=== PATIENT | female | born 1930 | race Caucasian/White ===

== ENCOUNTER 2017-01-28 18:21 | Observation (INO) | payer MEDICARE, MEDICAID ==
[2017-01-28 19:24] LABS: BASO # 0.1 K/uL (0.0-0.2); BASO % 0.7 % (0.0-2.0); EOS # 0.2 K/uL (0.0-0.7); EOS % 1.8 % (0.0-4.0); HEMATOCRIT 31.3 % (34.0-47.0); LYMPH # 2.6 K/uL (1.0-4.3); LYMPH % 30.4 % (20.0-40.0); MEAN CELL VOLUME 87.9 fl (81.0-99.0); MEAN CORPUSCULAR HEMOGLOBIN 27.7 pg (27.0-31.0); MEAN CORPUSCULAR HGB CONC 31.6 g/dL (33.0-37.0); MONO # 0.8 K/uL (0.0-0.8); MONO % 9.5 % (0.0-10.0); NEUT % 57.6 % (50.0-75.0); RED CELL DISTRIBUTION WIDTH 16.2 % (11.5-14.5); WHITE BLOOD COUNT 8.7 K/uL (4.8-10.8)
--- NOTE | 2017-01-28 19:26 | ED PDOC ---
HPI: General Adult Time Seen by Provider: 01/28/17 18:45 Chief Complaint (Nursing): High Blood Pressure Chief Complaint (Provider): Generalized Weakness History Per: Patient, Family (son) History/Exam Limitations: no limitations Onset/Duration Of Symptoms: Days (today), Worse Since (since onset) Have you had recent travel within the past 21 days to any of the following countries: [place], [place], [place] or [place]?: No Current Symptoms Are (Timing): Still Present Severity: Moderate Additional Complaint(s): Katie Cook is an 86 year old female, with a past medical history inclusive of CAD, CHF, atrial fibrillation, HTN, hypercholesterolemia, COPD and hypothyroidism, who presents to the ED on 01/28/17, accompanied by her son, for the evaluation of a moderate amount of generalized weakness that she has experienced over the course of the day today. Feelings have progressively worsened since onset, with son reporting that patient had seemed to be slurring her speech approximately 1 hour prior to arrival, though patient reports that she had simply been very tired at that time. Associated exertional dyspnea also reported in addition to a noted elevation in both blood pressure and blood glucose at home. Denies fever, chills, focal weakness or headache as well as cough, rhinorrhea, vomiting or diarrhea. Of note, patient does report some intermittent chest pain but states that she has experienced this issue for many years. However pt does report the tightness also worse today. Most recent Cardiology evaluation was as of yesterday where blood pressure had also been elevated, resulting in a change to her medication regimen. PMD: Dayne Duran ([place]) Past Medical History Reviewed: Historical Data, Nursing Documentation, Vital Signs Vital Signs: Last Vital Signs Temp 97.6 F 01/29/17 13:23 Pulse 61 01/29/17 13:23 Resp 20 01/29/17 13:23 BP 145/75 01/29/17 13:23 Pulse Ox 97 01/29/17 14:18 - Medical History PMH: Arthritis, Asthma, Atrial Fibrillation, Bronchitis, CAD, CHF, Diabetes ( type II), HTN, Hypercholesterolemia, Hyperthyroidism, Hypothyroidism, Pneumonia , Sleep Apnea Denies: HIV, Chronic Kidney Disease - Surgical History Surgical History: Denies: CABG Other surgeries: hysterectomy - Family History Family History: States: Hypertension - Immunization History Hx Tetanus Toxoid Vaccination: No Hx Influenza Vaccination: No Hx Pneumococcal Vaccination: No - Home Medications Home Medications: Ambulatory Orders Medication Instructions Recorded Atorvastatin Calcium [Lipitor] 10 mg PO DAILY 08/24/15 Omeprazole 20 mg PO DAILY 06/22/16 Fluticasone/Salmeterol 250/50 1 puff IH Q12H 11/13/16 [Advair Diskus 250/50] Levothyroxine [Synthroid] 175 mcg PO DAILY 11/13/16 Losartan [Cozaar] 50 mg PO DAILY 11/13/16 Albuterol 0.083% [Albuterol 0.083% 2.5 mg IH Q4H PRN #100 neb 11/15/16 Inhal [place] (2.5 mg/3 ml) UD] Furosemide [Lasix] 20 mg PO DAILY #30 tablet 11/15/16 Amiodarone [Cordarone] 100 mg PO DAILY 01/28/17 Sitagliptin Phos/Metformin HCl 1 tab PO HS 01/28/17 [Janumet Xr 100-1,000 mg Tablet] - Allergies Allergies/Adverse Reactions: Allergies Allergy/AdvReac Type Severity Reaction Status Date / Time No Known Allergies Allergy Verified 11/13/16 11:37 Review of Systems ROS Statement: Except As Marked, All Systems Reviewed And Found Negative Constitutional: Positive for: Weakness (generalized). Negative for: Fever, Chills ENT: Negative for: Nose Discharge Cardiovascular: Positive for: Chest Pain (intermittent x many years) Respiratory: Positive for: SOB with Exertion. Negative for: Cough Gastrointestinal: Negative for: Vomiting, Diarrhea Neurological: Negative for: Weakness, Numbness, Headache, Dizziness Physical Exam - Reviewed Nursing Documentation Reviewed: Yes Vital Signs Reviewed: Yes - Physical Exam Appears: Positive for: Non-toxic, No Acute Distress Head Exam: Positive for: ATRAUMATIC, NORMOCEPHALIC Skin: Positive for: Warm, Dry, Pallor Eye Exam: Positive for: Normal appearance, EOMI, PERRL ENT: Positive for: Normal ENT Inspection. Negative for: Pharyngeal Erythema, Tonsillar Exudate, Tonsillar Swelling Cardiovascular/Chest: Positive for: Regular Rate, Rhythm. Negative for: Murmur Respiratory: Positive for: Normal Breath Sounds. Negative for: Respiratory Distress Gastrointestinal/Abdominal: Positive for: Normal Exam, Soft. Negative for: Tenderness Back: Positive for: Normal Inspection Extremity: Positive for: Normal ROM (though she is having difficulty with left leg secondary to reported chronic knee arthritis (currently worse on left than right)) Neurologic/Psych: Positive for: Alert, Oriented (x3). Negative for: Motor/ Sensory Deficits, Aphasia, Other (no slurred speech) - Laboratory Results Result Diagrams: 01/29/17 05:45 01/29/17 05:45 - ECG O2 Sat by Pulse Oximetry: 97 (RA) Pulse Ox Interpretation: Normal Medical Decision Making Medical Decision Makin:45 Initial Impression: generalized weakness Differential diagnoses include but are not limited to electrolyte abnormality, dehydration, hypertensive encephalopathy, hypothyroidism, anemia, CHF, ACS Initial Plan: * EKG * CT Head w/o contrast * CXR * Blood Type/Screen * Labs * BNP * Magnesium * Phosphorus * TSH * Troponin I * PTT * PT * Glucose/Blood/POC * Udip * Reevaluation Accucheck is 194. CXR demonstrates increase perihilar thickening, no effusion On reeval pt's BP increased again. Concern for early CHF exacerbation. [facility] for PMD and Dr Boyd [facility]. Pt will hospitalized for chest pain, uncontrolled htn, and early CHF exacerbation Scribe Attestation: Documented by Yudith Liriano, acting as a scribe for Joie Velez MD. Provider Scribe Attestation: All medical record entries made by the Scribe were at my direction and personally dictated by me. I have reviewed the chart and agree that the record accurately reflects my personal performance of the history, physical exam, medical decision making, and the department course for this patient. I have also personally directed, reviewed, and agree with the discharge instructions and disposition. Disposition - Clinical Impression Clinical Impression: Hypertension, CHF (congestive heart failure), Chest pain Counseled Patient/Family Regarding: Studies Performed, Diagnosis - Disposition Disposition Time: 21:00 Condition: SERIOUS - Pt Status Changed To: Hospital Disposition Of: Observation - POA Present On Arrival: None
[2017-01-28 19:38] LABS: ALB/GLOB RATIO 1.2 (1.0-2.1); ALKALINE PHOSPHATASE 92 U/L (38-126); ALT/SGPT 34 U/L (9-52); AST/SGOT 51 U/L (14-36); BILIRUBIN,TOTAL 0.3 mg/dl (0.2-1.3); BLOOD UREA NITROGEN 17 mg/dl (7-17); CALCIUM 8.8 mg/dL (8.4-10.2); CARBON DIOXIDE 24 mmol/L (22-30); CHLORIDE 105 mmol/L (98-107); GFR AFRICAN-AMERICAN > 60; GLUCOSE,RANDOM 167 mg/dL (65-105); MAGNESIUM 1.7 MG/DL (1.6-2.3); PHOSPHOROUS 3.9 mg/dl (2.5-4.5); POTASSIUM 3.9 MMOL/L (3.6-5.0); SODIUM 137 mmol/l (132-148); TOTAL PROTEIN 6.8 G/DL (6.3-8.2)
--- NOTE | 2017-01-28 20:07 | CT ---
EXAM: CT Head Without Intravenous Contrast. CLINICAL HISTORY: 86 years old, female; Signs and symptoms; Weakness, extremity; Bilateral TECHNIQUE: Axial computed tomography images of the head/brain without intravenous contrast. This CT exam was performed using one or more of the following dose reduction techniques: automated exposure control, adjustment of the mA and/or kV according to patient size, and/or use of iterative reconstruction technique. Coronal and sagittal reformatted images were created and reviewed. EXAM DATE/TIME: 01/28/2017 6:56 PM COMPARISON: There are no prior studies for comparison. FINDINGS: Brain: There is mild prominence of sulci gyri and ventricles. There is no midline shift. There are basal ganglia calcifications bilaterally. There is decreased attenuation in periventricular white matter. There are no focal masses. There are no focal hemorrhages. Rose-white differentiation is visualized. Ventricles: See above. Bones: Cranial vault is intact. Soft tissues: unremarkable Sinuses: There is no acute sinusitis. Ears and mastoids: Middle ears and mastoids are unremarkable. Orbits: Orbital contents are unremarkable. IMPRESSION: No acute intracranial abnormality, no bleed
[2017-01-28 20:08] LABS: THYROID STIMULATING HORMONE 5.16 mIU/ML (0.46-4.68)
[2017-01-28 20:42] LABS: PARTIAL THROMBOPLASTIN TIME 25.9 SECONDS (23.3-32.5)
[2017-01-28] MEDS ORDERED: Nitroglycerin 2% 1GM UD TOP STA (20:43)
[2017-01-28] MEDS ORDERED: Nitroglycerin 2% 1GM UD ONE (20:58)
[2017-01-28 21:36] LABS: URINE BILIRUBIN NEGATIVE (NEGATIVE); URINE BLOOD NEGATIVE (NEGATIVE); URINE COLOR YELLOW (YELLOW); URINE GLUCOSE (UA) NEG (Normal); URINE KETONE NEGATIVE (NEGATIVE); URINE LEUKOCYTE ESTERASE TRACE Leu/uL (Negative); URINE PROTEIN NEGATIVE (NEGATIVE); URINE UROBILINOGEN 0.2-1.0 mg/dL (0.2-1.0); WBC URINE 3 /hpf (0-5)
[2017-01-28 21:58] VITALS: BMI 37.8
[2017-01-28] MEDS: Nitroglycerin 2% 1GM UD TOP SCH (22:00)
[2017-01-28] MEDS ORDERED: Albuterol 0.083% Inhal Sol (2.5 mg/3 mL) UD IH PRN (23:00)
[2017-01-28] MEDS: Fluticasone-Salmeterol 250-50mcg Diskus IH SCH (23:28)
[2017-01-29] MEDS: Nitroglycerin 2% 1GM UD TOP SCH (04:25)
[2017-01-29] MEDS ORDERED: Levothyroxine 175 MCG TAB PO SCH (06:30)
[2017-01-29 07:05] LABS: BASO # 0.1 K/uL (0.0-0.2); BASO % 0.7 % (0.0-2.0); EOS # 0.2 K/uL (0.0-0.7); EOS % 1.7 % (0.0-4.0); HEMATOCRIT 32.2 % (34.0-47.0); LYMPH # 3.4 K/uL (1.0-4.3); LYMPH % 34.4 % (20.0-40.0); MEAN CELL VOLUME 87.6 fl (81.0-99.0); MEAN CORPUSCULAR HEMOGLOBIN 27.7 pg (27.0-31.0); MEAN CORPUSCULAR HGB CONC 31.6 g/dL (33.0-37.0); MEAN PLATELET VOLUME 9.9 fl (7.2-11.7); MONO # 0.8 K/uL (0.0-0.8); MONO % 8.5 % (0.0-10.0); NEUT # 5.4 K/uL (1.8-7.0); NEUT % 54.7 % (50.0-75.0); RED CELL DISTRIBUTION WIDTH 15.8 % (11.5-14.5); WHITE BLOOD COUNT 9.8 K/uL (4.8-10.8)
[2017-01-29 07:28] LABS: ALB/GLOB RATIO 1.2 (1.0-2.1); ALKALINE PHOSPHATASE 95 U/L (38-126); ALT/SGPT 33 U/L (9-52); AST/SGOT 38 U/L (14-36); BILIRUBIN,TOTAL 0.3 mg/dl (0.2-1.3); BLOOD UREA NITROGEN 16 mg/dl (7-17); CALCIUM 8.7 mg/dL (8.4-10.2); CARBON DIOXIDE 27 mmol/L (22-30); CHLORIDE 101 mmol/L (98-107); GFR AFRICAN-AMERICAN > 60; GLUCOSE,RANDOM 164 mg/dL (65-105); POTASSIUM 3.4 MMOL/L (3.6-5.0); SODIUM 137 mmol/l (132-148); TOTAL PROTEIN 6.8 G/DL (6.3-8.2)
--- NOTE | 2017-01-29 07:43 | CARD ---
APPROVED REPORT EKG Measurement Heart [id number] <Conclusion> Normal sinus rhythm Incomplete right bundle branch block Left ventricular hypertrophy with repolarization abnormality Abnormal ECG
[2017-01-29 08:01] VITALS: RESP 20
--- NOTE | 2017-01-29 08:17 | CP.PCM.HP ---
History of Present Illness - History of Present Illness History of Present Illness: pt admitted to [facility] [place] for cp, dyspnea and feeling off balance for a couple days. was shopping w/ a friend 3 days [employer] and had to leave the market go home and lay down. bp meds was adjusted 01/[address] valentin-corina and felt similar episode of disquillibrium and felt hte need to lay down. last visit to [facility] [place] was approx 2 wks ago. pt is concerned about caring for who is ill. no c/o cp at present. c/o headache-?? r/t ntp for elev bp and cp. will dc ntp and start pt back on normal bp meds [id number], humberto bocanegra both aware. All of pts bw and imaging noted. pt is on RA at present w/o dyspnea or cp Present on Admission - Present on Admission Any Indicators Present on Admission: Yes History of Uncontrolled Diabetes: Yes Review of Systems - Cardiovascular Cardiovascular: As Per HPI, Chest Pain, Chest Pain with Activity, Dyspnea on Exertion - Respiratory Respiratory: As Per HPI, Cough, Chest Congestion - Neurological Neurological: As Per HPI, Disequilibrium Past Patient History - Infectious Disease Hx of Infectious Diseases: None - Past Medical History & Family History Past Medical History?: Yes - Past Social History Smoking Status: Former Smoker - CARDIAC Hx Cardiac Disorders: Yes Hx Atrial Fibrillation: Yes Hx Congestive Heart Failure: Yes Hx Hypercholesterolemia: Yes Hx Hypertension: Yes - PULMONARY Hx Respiratory Disorders: Yes Hx Asthma: Yes Hx Bronchitis: Yes Hx Chronic Obstructive Pulmonary Disease (COPD): Yes Hx Pneumonia: Yes Hx Sleep Apnea: Yes - NEUROLOGICAL Hx Neurological Disorder: No - HEENT Hx HEENT Problems: No - RENAL Hx Chronic Kidney Disease: No - ENDOCRINE/METABOLIC Hx Endocrine Disorders: Yes Hx Diabetes Mellitus Type 2: Yes Hx Hypothyroidism: Yes - HEMATOLOGICAL/ONCOLOGICAL Hx Blood Disorders: No Hx AIDS: No Hx Human Immunodeficiency Virus (HIV): No - INTEGUMENTARY Hx Dermatological Problems: No - MUSCULOSKELETAL/RHEUMATOLOGICAL Hx Musculoskeletal Disorders: Yes Hx Arthritis: Yes Hx Falls: Yes - GASTROINTESTINAL Hx Gastrointestinal Disorders: No - GENITOURINARY/GYNECOLOGICAL Hx Genitourinary Disorders: No - PSYCHIATRIC Hx Psychophysiologic Disorder: No Hx Substance Use: No - SURGICAL HISTORY Hx Surgeries: Yes Hx Coronary Artery Bypass Graft: Yes Hx Hysterectomy: Yes - ANESTHESIA Hx Anesthesia: Yes Hx Anesthesia Reactions: No Hx Malignant Hyperthermia: No Meds Allergies/Adverse Reactions: Allergies Allergy/AdvReac Type Severity Reaction Status Date / Time No Known Allergies Allergy Verified 11/13/16 11:37 Physical Exam - Constitutional Appears: Well, Non-toxic, No Acute Distress - Head Exam Head Exam: ATRAUMATIC, NORMAL INSPECTION, NORMOCEPHALIC - Eye Exam Eye Exam: EOMI, Normal appearance, PERRL Pupil Exam: NORMAL ACCOMODATION, PERRL - ENT Exam ENT Exam: Mucous Membranes Moist, Normal Exam - Neck Exam Neck exam: Positive for: Normal Inspection - Respiratory Exam Respiratory Exam: Clear to Auscultation Bilateral, NORMAL BREATHING PATTERN - Cardiovascular Exam Cardiovascular Exam: REGULAR RHYTHM, RRR, +S1, +S2 - GI/Abdominal Exam GI & Abdominal Exam: Normal Bowel Sounds, Soft. absent: Tenderness - Extremities Exam Extremities exam: Positive for: full ROM, normal capillary refill, normal inspection, pedal pulses present - Back Exam Back exam: NORMAL INSPECTION - Neurological Exam Neurological exam: Alert, CN II-XII Intact, Normal Gait, Oriented x3, Reflexes Normal - Psychiatric Exam Psychiatric exam: Normal Affect, Normal Mood - Skin Skin Exam: Dry, Intact, Normal Color, Warm Results - Vital Signs Recent Vital Signs: Last Vital Signs Temp 98.1 F 01/29/17 08:00 Pulse 62 01/29/17 08:00 Resp 20 01/29/17 08:00 BP 151/68 H 01/29/17 08:00 Pulse Ox 96 01/29/17 08:00 - Labs Result Diagrams: 01/29/17 05:45 01/29/17 05:45 Labs: Laboratory Results - last 24 hr 01/28/17 01/29/17 01/29/17 22:10 05:08 05:45 WBC 9.8 RBC 3.68 L Hgb 10.2 L Hct 32.2 L MCV 87.6 MCH 27.7 MCHC 31.6 L RDW 15.8 H Plt Count 167 MPV 9.9 Neut % (Auto) 54.7 Lymph % (Auto) 34.4 [place] % (Auto) 8.5 Eos % (Auto) 1.7 Baso % (Auto) 0.7 Neut # 5.4 Lymph # 3.4 [place] # 0.8 Eos # 0.2 Baso # 0.1 Sodium 137 Potassium 3.4 L Chloride 101 Carbon Dioxide 27 Anion Gap 12 BUN 16 Creatinine 0.7 Est GFR ( Amer) > 60 Est GFR (Non-Af Amer) > 60 POC Glucose (mg/dL) 193 H 137 H Random Glucose 164 H Calcium 8.7 Total Bilirubin 0.3 AST 38 H D ALT 33 Alkaline Phosphatase 95 Troponin I < 0.0120 Total Protein 6.8 Albumin 3.7 Globulin 3.1 Albumin/Globulin Ratio 1.2 Assessment & Plan (1) CHF (congestive heart failure) Assessment and Plan: cardio, cont meds trops diuresis Status: Acute (2) Chest pain Assessment and Plan: trops x 3-1st/2nd negative cardio no cp at present ntp Status: Acute (3) Dyspnea Assessment and Plan: none at present ?? r/t copd vs chf pulm diuresis Status: Acute Priority: High (4) DVT prophylaxis Assessment and Plan: scd and ae hose lovenox if admitted over 24h ambulation Status: Acute (5) Diabetes mellitus, type II Assessment and Plan: cont home meds fsbg dietary control Status: Chronic (6) Hypothyroidism Assessment and Plan: tsh slightly abn cont synthroid outpt f/u ?? need for outpt endo Status: Chronic (7) COPD (chronic obstructive pulmonary disease) Status: Acute Decision To Admit - Pt Status Changed To: Hospital Disposition Of: Observation - . Bed Request Type: Telemetry Admitting Physician: Viri Mi
[2017-01-29] MEDS ORDERED: Pantoprazole 40 mg EC Tab PO SCH (09:00)
--- NOTE | 2017-01-29 10:40 | CP.PCM.CON ---
History of Present Illness - History of Present Illness History of Present Illness: This 86 year old female presented to the emergency room with a complaint of dizziness, chest discomfort (tightness) and mild shortness of breath. No cough or sputum, no fever or chills, no hemoptysis. She had been feeling lightheaded for the last 2-3 days [employer]. She has been having elevated blood pressure despite her medications recently. She has multiple co-morbidities including BAR, Asthma , HTN, Paroxysmal atrial fib, Hyperlipidemia, Diabetes, DJD of the knees as well as Lumbar DDD. She is compliant with her medications and use of her nCPAP at home. CXR on presentation shows increased BV markings, cardiomegaly, but no areas of consolidation. Past Patient History - Infectious Disease Hx of Infectious Diseases: None - Past Medical History & Family History Past Medical History?: Yes Pertinent Family History: Thyroid disease, diabetes, asthma, cholesterol. - Past Social History Smoking Status: Former Smoker (in the remote past, less than 100 cigarettes in lifetime) Chewing Tobacco Use: No Cigar Use: No Alcohol: None Drugs: Denies Home Situation {Lives}: With Family - CARDIAC Hx Cardiac Disorders: Yes Hx Atrial Fibrillation: Yes Hx Congestive Heart Failure: Yes Hx Hypercholesterolemia: Yes Hx Hypertension: Yes - PULMONARY Hx Respiratory Disorders: Yes Hx Asthma: Yes Hx Bronchitis: Yes Hx Pneumonia: Yes Hx Sleep Apnea: Yes - NEUROLOGICAL Hx Neurological Disorder: No - HEENT Hx HEENT Problems: No - RENAL Hx Chronic Kidney Disease: No - ENDOCRINE/METABOLIC Hx Endocrine Disorders: Yes Hx Diabetes Mellitus Type 2: Yes Hx Hypothyroidism: Yes - HEMATOLOGICAL/ONCOLOGICAL Hx Blood Disorders: No Hx Human Immunodeficiency Virus (HIV): No - INTEGUMENTARY Hx Dermatological Problems: No - MUSCULOSKELETAL/RHEUMATOLOGICAL Hx Musculoskeletal Disorders: Yes Hx Arthritis: Yes Hx Falls: Yes - GASTROINTESTINAL Hx Gastrointestinal Disorders: No - GENITOURINARY/GYNECOLOGICAL Hx Genitourinary Disorders: No - PSYCHIATRIC Hx Psychophysiologic Disorder: No Hx Substance Use: No - SURGICAL HISTORY Hx Surgeries: Yes Hx Hysterectomy: Yes Hx Orthopedic Surgery: Yes (lumbar laminectomy) - ANESTHESIA Hx Anesthesia: Yes Hx Anesthesia Reactions: No Hx Malignant Hyperthermia: No Meds Allergies/Adverse Reactions: Allergies Allergy/AdvReac Type Severity Reaction Status Date / Time No Known Allergies Allergy Verified 11/13/16 11:37 - Medications Medications: Current Medications Acetaminophen (Tylenol 325mg Tab) 650 mg PO Q4 PRN PRN Reason: Headache Albuterol Sulfate (Albuterol 0.083% Inhal [place] (2.5 Mg/3 Ml) Ud) 2.5 mg IH Q4H PRN PRN Reason: dyspnea Last Admin: 01/29/17 04:45 Dose: 2.5 mg Amiodarone HCl (Cordarone) 100 mg PO DAILY [facility] Last Admin: 01/29/17 08:42 Dose: 100 mg Atorvastatin Calcium (Lipitor) 10 mg PO DAILY [facility] Last Admin: 01/29/17 08:44 Dose: 10 mg Furosemide (Lasix) 20 mg PO DAILY [facility] Last Admin: 01/29/17 08:43 Dose: 20 mg Levothyroxine Sodium (Synthroid) 175 mcg PO DAILY@0630 [facility] Last Admin: 01/29/17 08:45 Dose: 175 mcg Losartan Potassium (Cozaar) 50 mg PO DAILY [facility] Last Admin: 01/29/17 08:42 Dose: 50 mg Metformin HCl (Glucophage) 500 mg PO BIDWM [facility] Last Admin: 01/29/17 08:43 Dose: 500 mg Pantoprazole Sodium (Protonix Ec Tab) 40 mg PO DAILY [facility] Last Admin: 01/29/17 08:44 Dose: 40 mg Fluticasone/Salmeterol (Advair Diskus 250/50) 1 puff IH Q12H [facility] Last Admin: 01/28/17 23:28 Dose: Not Given Sitagliptin Phosphate (Januvia) 100 mg PO DAILY [facility] Physical Exam - Additional Findings Additional findings: SpO2 95% on room air. Elderly overweight female who is slightly lightheaded at this time. Trace ankle edema is noted in bilaterally. There is no cyanosis or calf tenderness. Peripheral pulses are difficult to appreciate in either ankle or foot. There is no palpable lymphadenopathy. The pharynx is pink and mucous membranes are moist. Nasal passages are patent bilaterally. No bleeding or exudate. Conjunctivae are mildly injected bilaterally. No scleral icterus. EACs are patent and TMs are intact bilaterally. Neck is supple and trachea is midline. No neck vein distention or carotid bruit is noted. Left carotid upstroke is decreased compared to the right. No dullness on chest percussion. Breath sounds are well heard bilaterally. No rales or wheezes. No rhonchi. Heart sounds are well heard and the rhythm is regular. No murmur. Results - Vital Signs Recent Vital Signs: Last Vital Signs Temp 98.1 F 01/29/17 08:00 Pulse 62 01/29/17 08:42 Resp 20 01/29/17 08:00 BP 151/68 H 01/29/17 08:43 Pulse Ox 96 01/29/17 08:00 - Labs Result Diagrams: 01/29/17 05:45 01/29/17 05:45 Labs: Laboratory Results - last 24 hr 01/28/17 01/29/17 01/29/17 22:10 05:08 05:45 WBC 9.8 RBC 3.68 L Hgb 10.2 L Hct 32.2 L MCV 87.6 MCH 27.7 MCHC 31.6 L RDW 15.8 H Plt Count 167 MPV 9.9 Neut % (Auto) 54.7 Lymph % (Auto) 34.4 [place] % (Auto) 8.5 Eos % (Auto) 1.7 Baso % (Auto) 0.7 Neut # 5.4 Lymph # 3.4 [place] # 0.8 Eos # 0.2 Baso # 0.1 Sodium 137 Potassium 3.4 L Chloride 101 Carbon Dioxide 27 Anion Gap 12 BUN 16 Creatinine 0.7 Est GFR ( Amer) > 60 Est GFR (Non-Af Amer) > 60 POC Glucose (mg/dL) 193 H 137 H Random Glucose 164 H Calcium 8.7 Total Bilirubin 0.3 AST 38 H D ALT 33 Alkaline Phosphatase 95 Troponin I < 0.0120 Total Protein 6.8 Albumin 3.7 Globulin 3.1 Albumin/Globulin Ratio 1.2 Assessment & Plan - Assessment and Plan (Free Text) Assessment: Accelerated hypertension. Labyrinthine dysfunction. Obstructive sleep apnea with nasal CPAP at home. Bronchial Asthma. Degenerative joint disease both knees.. Hypothyroidism.. NIDDM. Plan: Follow up CXR after diuresis. Continue present medications. No changes in respiratory management at this time. - Date & Time Date: 01/29/17 Time: 10:42
--- NOTE | 2017-01-29 11:45 | IP.NPCORE ---
Heart Failure Core Measure - Heart Failure Ejection Fraction: 40 % or Greater Left Ventricular Function to be assessed after discharge: No LENNY Inhibitor Prescribed: Yes - Follow up Will be discharged to: Home
--- NOTE | 2017-01-29 11:57 | CP.PCM.CON ---
History of Present Illness - History of Present Illness History of Present Illness: 86 yo female with hypertension, atrial fibrillation, COPD, nonspecific symptoms and presentation. Pt hemodynamically stable. R/o for MT. Bp acceptable. Pt comfortable at rest. Past Patient History - Infectious Disease Hx of Infectious Diseases: None - Past Medical History & Family History Past Medical History?: Yes - Past Social History Smoking Status: Former Smoker (in the remote past, less than 100 cigarettes in lifetime) Chewing Tobacco Use: No Cigar Use: No Alcohol: None Drugs: Denies Home Situation {Lives}: With Family - CARDIAC Hx Cardiac Disorders: Yes Hx Atrial Fibrillation: Yes Hx Congestive Heart Failure: Yes Hx Hypercholesterolemia: Yes Hx Hypertension: Yes - PULMONARY Hx Respiratory Disorders: Yes Hx Asthma: Yes Hx Bronchitis: Yes Hx Pneumonia: Yes Hx Sleep Apnea: Yes - NEUROLOGICAL Hx Neurological Disorder: No - HEENT Hx HEENT Problems: No - RENAL Hx Chronic Kidney Disease: No - ENDOCRINE/METABOLIC Hx Endocrine Disorders: Yes Hx Diabetes Mellitus Type 2: Yes Hx Hypothyroidism: Yes - HEMATOLOGICAL/ONCOLOGICAL Hx Blood Disorders: No Hx Human Immunodeficiency Virus (HIV): No - INTEGUMENTARY Hx Dermatological Problems: No - MUSCULOSKELETAL/RHEUMATOLOGICAL Hx Musculoskeletal Disorders: Yes Hx Arthritis: Yes Hx Falls: Yes - GASTROINTESTINAL Hx Gastrointestinal Disorders: No - GENITOURINARY/GYNECOLOGICAL Hx Genitourinary Disorders: No - PSYCHIATRIC Hx Psychophysiologic Disorder: No Hx Substance Use: No - SURGICAL HISTORY Hx Surgeries: Yes Hx Hysterectomy: Yes Hx Orthopedic Surgery: Yes (lumbar laminectomy) - ANESTHESIA Hx Anesthesia: Yes Hx Anesthesia Reactions: No Hx Malignant Hyperthermia: No Meds Allergies/Adverse Reactions: Allergies Allergy/AdvReac Type Severity Reaction Status Date / Time No Known Allergies Allergy Verified 11/13/16 11:37 - Medications Medications: Current Medications Acetaminophen (Tylenol 325mg Tab) 650 mg PO Q4 PRN PRN Reason: Headache Albuterol Sulfate (Albuterol 0.083% Inhal [place] (2.5 Mg/3 Ml) Ud) 2.5 mg IH Q4H PRN PRN Reason: dyspnea Last Admin: 01/29/17 04:45 Dose: 2.5 mg Amiodarone HCl (Cordarone) 100 mg PO DAILY [facility] Last Admin: 01/29/17 08:42 Dose: 100 mg Atorvastatin Calcium (Lipitor) 10 mg PO DAILY [facility] Last Admin: 01/29/17 08:44 Dose: 10 mg Furosemide (Lasix) 20 mg PO DAILY [facility] Last Admin: 01/29/17 08:43 Dose: 20 mg Levothyroxine Sodium (Synthroid) 175 mcg PO DAILY@0630 [facility] Last Admin: 01/29/17 08:45 Dose: 175 mcg Losartan Potassium (Cozaar) 50 mg PO DAILY [facility] Last Admin: 01/29/17 08:42 Dose: 50 mg Metformin HCl (Glucophage) 500 mg PO BIDWM [facility] Last Admin: 01/29/17 08:43 Dose: 500 mg Pantoprazole Sodium (Protonix Ec Tab) 40 mg PO DAILY [facility] Last Admin: 01/29/17 08:44 Dose: 40 mg Fluticasone/Salmeterol (Advair Diskus 250/50) 1 puff IH Q12H [facility] Last Admin: 01/28/17 23:28 Dose: Not Given Sitagliptin Phosphate (Januvia) 100 mg PO DAILY [facility] Physical Exam - Respiratory Exam Respiratory Exam: Clear to Auscultation Bilateral - Cardiovascular Exam Cardiovascular Exam: REGULAR RHYTHM - GI/Abdominal Exam GI & Abdominal Exam: Normal Bowel Sounds - Extremities Exam Extremities exam: Positive for: normal inspection Results - Vital Signs Recent Vital Signs: Last Vital Signs Temp 98.1 F 01/29/17 08:00 Pulse 62 01/29/17 09:00 Resp 20 01/29/17 08:00 BP 151/68 H 01/29/17 08:43 Pulse Ox 98 01/29/17 11:08 - Labs Result Diagrams: 01/29/17 05:45 01/29/17 05:45 Labs: Laboratory Results - last 24 hr 01/28/17 01/29/17 01/29/17 22:10 05:08 05:45 WBC 9.8 RBC 3.68 L Hgb 10.2 L Hct 32.2 L MCV 87.6 MCH 27.7 MCHC 31.6 L RDW 15.8 H Plt Count 167 MPV 9.9 Neut % (Auto) 54.7 Lymph % (Auto) 34.4 [place] % (Auto) 8.5 Eos % (Auto) 1.7 Baso % (Auto) 0.7 Neut # 5.4 Lymph # 3.4 [place] # 0.8 Eos # 0.2 Baso # 0.1 Sodium 137 Potassium 3.4 L Chloride 101 Carbon Dioxide 27 Anion Gap 12 BUN 16 Creatinine 0.7 Est GFR ( Amer) > 60 Est GFR (Non-Af Amer) > 60 POC Glucose (mg/dL) 193 H 137 H Random Glucose 164 H Calcium 8.7 Total Bilirubin 0.3 AST 38 H D ALT 33 Alkaline Phosphatase 95 Troponin I < 0.0120 Total Protein 6.8 Albumin 3.7 Globulin 3.1 Albumin/Globulin Ratio 1.2 01/29/17 11:28 WBC RBC Hgb Hct MCV MCH MCHC RDW Plt Count MPV Neut % (Auto) Lymph % (Auto) [place] % (Auto) Eos % (Auto) Baso % (Auto) Neut # Lymph # [place] # Eos # Baso # Sodium Potassium Chloride Carbon Dioxide Anion Gap BUN Creatinine Est GFR ( Amer) Est GFR (Non-Af Amer) POC Glucose (mg/dL) 253 H Random Glucose Calcium Total Bilirubin AST ALT Alkaline Phosphatase Troponin I Total Protein Albumin Globulin Albumin/Globulin Ratio Assessment & Plan - Assessment and Plan (Free Text) Assessment: Stable from cardiac standpoint. Pt can be discharged and f/u as outpt continue current medications.
--- NOTE | 2017-01-29 12:00 | RAD ---
HISTORY: weakness COMPARISON: November 13, 2016. TECHNIQUE: Chest PA and lateral FINDINGS: LUNGS: No active pulmonary disease. PLEURA: No significant pleural effusion identified. No pneumothorax apparent. CARDIOVASCULAR: Cardiomegaly. No evidence of acute, significant cardiovascular disease. OSSEOUS STRUCTURES: No significant abnormalities. VISUALIZED UPPER ABDOMEN: Normal. OTHER FINDINGS: None. IMPRESSION: No active disease. No significant interval change compared to the prior examination(s).
[2017-01-29] MEDS: Fluticasone-Salmeterol 250-50mcg Diskus IH SCH (12:34)
[2017-01-29 16:07] VITALS: BP 159/68; PULSE 62; TEMP 97.5; O2SAT 95
--- NOTE | 2017-01-29 18:21 | CP.PCM.DIS ---
Provider - Provider Date of Admission: 01/28/17 21:30 Attending physician: Viri Mi MD Time Spent in preparation of Discharge (in minutes): 15 Diagnosis - Discharge Diagnosis (1) CHF (congestive heart failure) Status: Acute (2) Chest pain Status: Acute (3) Dyspnea Status: Acute Priority: High (4) DVT prophylaxis Status: Acute (5) Diabetes mellitus, type II Status: Chronic (6) Hypothyroidism Status: Chronic (7) COPD (chronic obstructive pulmonary disease) Status: Acute Hospital Course - Lab Results Lab Results: Most Recent Lab Values WBC 9.8 K/uL (4.8-10.8) 01/29/17 05:45 RBC 3.68 Mil/uL (3.80-5.20) L 01/29/17 05:45 Hgb 10.2 g/dL (12.0-16.0) L 01/29/17 05:45 Hct 32.2 % (34.0-47.0) L 01/29/17 05:45 MCV 87.6 fl (81.0-99.0) 01/29/17 05:45 MCH 27.7 pg (27.0-31.0) 01/29/17 05:45 MCHC 31.6 g/dL (33.0-37.0) L 01/29/17 05:45 RDW 15.8 % (11.5-14.5) H 01/29/17 05:45 Plt Count 167 K/uL (130-400) 01/29/17 05:45 MPV 9.9 fl (7.2-11.7) 01/29/17 05:45 Neut % (Auto) 54.7 % (50.0-75.0) 01/29/17 05:45 Lymph % (Auto) 34.4 % (20.0-40.0) 01/29/17 05:45 [place] % (Auto) 8.5 % (0.0-10.0) 01/29/17 05:45 Eos % (Auto) 1.7 % (0.0-4.0) 01/29/17 05:45 Baso % (Auto) 0.7 % (0.0-2.0) 01/29/17 05:45 Neut # 5.4 K/uL (1.8-7.0) 01/29/17 05:45 Lymph # 3.4 K/uL (1.0-4.3) 01/29/17 05:45 [place] # 0.8 K/uL (0.0-0.8) 01/29/17 05:45 Eos # 0.2 K/uL (0.0-0.7) 01/29/17 05:45 Baso # 0.1 K/uL (0.0-0.2) 01/29/17 05:45 PT 11.0 SECONDS (9.6-11.2) 01/28/17 19:15 INR 1.06 (0.92-1.08) 01/28/17 19:15 APTT 25.9 SECONDS (23.3-32.5) 01/28/17 19:15 Sodium 137 mmol/l (132-148) 01/29/17 05:45 Potassium 3.4 MMOL/L (3.6-5.0) L 01/29/17 05:45 Chloride 101 mmol/L (98-107) 01/29/17 05:45 Carbon Dioxide 27 mmol/L (22-30) 01/29/17 05:45 Anion Gap 12 (10-20) 01/29/17 05:45 BUN 16 mg/dl (7-17) 01/29/17 05:45 Creatinine 0.7 mg/dL (0.7-1.2) 01/29/17 05:45 Est GFR ( Amer) > 60 01/29/17 05:45 Est GFR (Non-Af Amer) > 60 01/29/17 05:45 POC Glucose (mg/dL) 253 mg/dL (65-110) H 01/29/17 11:28 Random Glucose 164 mg/dL (65-105) H 01/29/17 05:45 Calcium 8.7 mg/dL (8.4-10.2) 01/29/17 05:45 Phosphorus 3.9 mg/dl (2.5-4.5) 01/28/17 19:15 Magnesium 1.7 MG/DL (1.6-2.3) 01/28/17 19:15 Total Bilirubin 0.3 mg/dl (0.2-1.3) 01/29/17 05:45 AST 38 U/L (14-36) H D 01/29/17 05:45 ALT 33 U/L (9-52) 01/29/17 05:45 Alkaline Phosphatase 95 U/L (38-126) 01/29/17 05:45 Troponin I < 0.0120 ng/mL (0.00-0.120) 01/29/17 13:52 NT-Pro-B Natriuret Pep 892 pg/ml (0-900) 01/28/17 19:15 Total Protein 6.8 G/DL (6.3-8.2) 01/29/17 05:45 Albumin 3.7 g/dL (3.5-5.0) 01/29/17 05:45 Globulin 3.1 gm/dL (2.2-3.9) 01/29/17 05:45 Albumin/Globulin Ratio 1.2 (1.0-2.1) 01/29/17 05:45 TSH 3rd Generation 5.16 mIU/ML (0.46-4.68) H 01/28/17 19:15 Urine Color Yellow (YELLOW) 01/28/17 21:15 Urine Clarity Clear (Clear) 01/28/17 21:15 Urine pH 6.0 (5.0-8.0) 01/28/17 21:15 Ur Specific [place] 1.025 (1.003-1.030) 01/28/17 21:15 Urine Protein Negative mg/dL (NEGATIVE) 01/28/17 21:15 Urine Glucose (UA) Neg mg/dL (Normal) 01/28/17 21:15 Urine Ketones Negative mg/dL (NEGATIVE) 01/28/17 21:15 Urine Blood Negative (NEGATIVE) 01/28/17 21:15 Urine Nitrate Negative (NEGATIVE) 01/28/17 21:15 Urine Bilirubin Negative (NEGATIVE) 01/28/17 21:15 Urine Urobilinogen 0.2-1.0 mg/dL (0.2-1.0) 01/28/17 21:15 Ur Leukocyte Esterase Trace Olvin/uL (Negative) 01/28/17 21:15 Urine Microscopic WBC 3 /hpf (0-5) 01/28/17 21:15 Ur Squamous Epith Cells 3 /hpf (0-5) 01/28/17 21:15 Blood Type O NEGATIVE 01/28/17 19:15 Blood Type Confirm O NEGATIVE 01/28/17 19:35 Antibody Screen Positive 01/28/17 19:15 Antibody Identification Anti D 01/28/17 19:15 BBK History Checked No verified bt 01/28/17 19:15 Discharge Exam - Head Exam Head Exam: ATRAUMATIC, NORMOCEPHALIC Discharge Plan - Follow Up Plan Condition: SERIOUS Disposition: HOME/ ROUTINE Additional Instructions: final dx cp, copd, chronic chf rted prn, meds per med rec cleard by pulm and cardio refused tcu Follow up with Dr Srinivasan in office.
[2017-01-29] MEDS ORDERED: Patient's Own Med (Sitagliptin Phos/Metformin Hcl [Janumet Xr 100-1,000 Mg Tablet] 1 TAB) PO SCH (22:00)
== END 2017-01-29 17:30 | disposition home or self-care (01) ==
LOC: H.ER 18:21 → H.ERHOLD 21:30 → H.TEL 22:38
PROVIDERS: ADMIT Family Medicine; ATTEND Family Medicine
DX: R07.9 Chest pain, unspecified (principal); E03.9 Hypothyroidism, unspecified; E11.9 Type 2 diabetes mellitus without complications; E78.00 Pure hypercholesterolemia, unspecified; E78.5 Hyperlipidemia, unspecified; G47.33 Obstructive sleep apnea (adult) (pediatric); I11.0 Hypertensive heart disease with heart failure; I50.9 Heart failure, unspecified; I25.10 Atherosclerotic heart disease of native coronary artery without angina pectoris; I48.0 Paroxysmal atrial fibrillation; J44.9 Chronic obstructive pulmonary disease, unspecified; J45.909 Unspecified asthma, uncomplicated; M17.0 Bilateral primary osteoarthritis of knee; Z87.891 Personal history of nicotine dependence; R06.00 Dyspnea, unspecified; M51.36 Other intervertebral disc degeneration, lumbar region
CPT/HCPCS: 36415; 70450; 71020; 80053; 81003; 82948; 83735; 83880; 84100; 84443; 84484; 85025; 85610; 85730; 86850; 86870; 86900; 87086; 93005; 94640; 96374; 97161; 97165; 97535; 99285; G0378; G8978; G8979; G8987; G8988; J1940

== ENCOUNTER 2017-04-01 09:42 | Observation (INO) | payer MEDICARE, MEDICAID ==
[2017-04-01 09:46] VITALS: BMI 31.6
[2017-04-01] MEDS ORDERED: Iohexol 240 (50 ml) PO ONE (10:33)
[2017-04-01] MEDS ORDERED: Iohexol 240 (50 ml) ONE (10:38)
--- NOTE | 2017-04-01 10:38 | ED PDOC ---
HPI: General Adult Time Seen by Provider: 04/01/17 10:07 Chief Complaint (Nursing): GI Problem History Per: Patient Additional Complaint(s): Pt. states since yesterday she's felt weak. Reports that she's also had approximately 5 episodes of non-bloody vomiting and has remained nauseous. Reports having abdominal discomfort (pt. unable to describe feeling) but no pain. Also states that 2 weeks ago she started taking Gabapentin for her foot pain due to her DM. Pt. states that she has not taken her Gabapentin since Friday. Denies chest pain, SOB, focal weakness, melena, hematemesis, hematochezia, BRBPR, fever. Last BM was today and was normal. Past Medical History Reviewed: Historical Data, Nursing Documentation, Vital Signs Vital Signs: Last Vital Signs Temp 97.7 F 04/01/17 17:35 Pulse 62 04/01/17 17:35 Resp 20 04/01/17 17:35 BP 132/72 04/01/17 17:35 Pulse Ox 96 04/01/17 17:35 - Medical History PMH: Arthritis, Asthma, Atrial Fibrillation, Bronchitis, CAD, CHF, COPD, Diabetes (type II), HTN, Hypercholesterolemia, Hyperthyroidism, Hypothyroidism, Pneumonia, Sleep Apnea Denies: HIV, Chronic Kidney Disease - Surgical History Surgical History: Back Surgery, Cholecystectomy Denies: CABG - Family History Family History: States: Hypertension - Immunization History Hx Tetanus Toxoid Vaccination: No Hx Influenza Vaccination: No Hx Pneumococcal Vaccination: No - Home Medications Home Medications: Ambulatory Orders Medication Instructions Recorded Omeprazole 20 mg PO DAILY 06/22/16 Levothyroxine [Synthroid] 175 mcg PO DAILY 11/13/16 Albuterol 0.083% [Albuterol 0.083% 2.5 mg IH Q4H PRN #100 neb 11/15/16 Inhal [place] (2.5 mg/3 ml) UD] Amiodarone [Cordarone] 100 mg PO DAILY 01/28/17 Sitagliptin Phos/Metformin HCl 1 tab PO DAILY 01/28/17 [Janumet Xr 100-1,000 mg Tablet] Aspirin [Ecotrin] 81 mg PO DAILY 04/01/17 Atorvastatin [Lipitor] 40 mg PO DAILY 04/01/17 Ferrous Sulfate [Feosol] 325 mg PO DAILY 04/01/17 Isosorbide Mononitrate [Imdur] 30 mg PO DAILY 04/01/17 Levocetirizine Dihydrochloride 5 mg PO DAILY 04/01/17 [Xyzal] Losartan [Cozaar] 25 mg PO DAILY 04/01/17 Olopatadine HCl [Pazeo] 1 drop EACHEYE DAILY 04/01/17 amLODIPine [Norvasc] 5 mg PO DAILY 04/01/17 traMADol [Ultram] 50 mg PO Q6H PRN 04/01/17 - Allergies Allergies/Adverse Reactions: Allergies Allergy/AdvReac Type Severity Reaction Status Date / Time No Known Allergies Allergy Verified 11/13/16 11:37 Review of Systems ROS Statement: Except As Marked, All Systems Reviewed And Found Negative Constitutional: Positive for: Weakness Gastrointestinal: Positive for: Nausea, Vomiting Physical Exam - Reviewed Nursing Documentation Reviewed: Yes Vital Signs Reviewed: Yes - Physical Exam Appears: Positive for: Well, Non-toxic, No Acute Distress Head Exam: Positive for: ATRAUMATIC, NORMAL INSPECTION, NORMOCEPHALIC Skin: Positive for: Normal Color, Warm. Negative for: Rash Eye Exam: Positive for: EOMI, Normal appearance, PERRL ENT: Positive for: Normal ENT Inspection Neck: Positive for: Normal, Painless ROM Cardiovascular/Chest: Positive for: Regular Rate, Rhythm Respiratory: Positive for: CNT, Normal Breath Sounds Gastrointestinal/Abdominal: Positive for: Normal Exam, Bowel Sounds, Soft. Negative for: Tenderness, Distended, Rebound Back: Positive for: Normal Inspection. Negative for: L CVA Tenderness, R CVA Tenderness Extremity: Positive for: Normal ROM Neurologic/Psych: Positive for: Alert, Oriented, Cerebellar Tests (Negative Romberg), Other (No slurred speech). Negative for: Aphasia, Facial Droop - Laboratory Results Result Diagrams: 04/01/17 10:55 04/01/17 10:55 - ECG ECG: Positive for: Interpreted By Me ECG Rhythm: Positive for: Sinus Rhythm. Negative for: ST/T Changes O2 Sat by Pulse Oximetry: 98 - Radiology X-Ray: Interpreted by Me (CXR) X-Ray Interpretation: No Acute Disease ED OBSERVATION Date of observation admission: 04/01/17 Time of observation admission: 10:39 - Observation admission statement Patient is being placed in observation because:: Weakness, vomiting - Progress Note Progress Note: 04/01/17 10:[address] head, CT abd/pelvis w/ PO and IV contrast ordered. Pepcid 20mg IV, zofran 4mg IV given. 04/01/17 12:39 CT head w/o contrast: negative. 04/01/17 14:37 CT abd/pelvis: Extensive sigmoid diverticulosis with mild associated inflammatory stranding ; correlate clinically for acute diverticulitis. Moderate constipation. Hepatomegaly. Hepatic steatosis. 2.5 cm left renal cyst. Additional too small to characterize tiny left renal hypodensities statistically likely cysts. Pt. still c/o nausea. Zofran 4mg IV, IV NS hydration given. Case d/w Jac, [employer], and arrangements made for 23 hr observation. Cipro 400mg IV, flagyl 500mg IV given. Disposition - Clinical Impression Clinical Impression: Diverticulitis - Patient ED Disposition Is Patient to be Admitted: Yes - Disposition Disposition Time: 15:03 Condition: FAIR
[2017-04-01 11:12] LABS: BASO % 0.3 % (0.0-2.0); EOS # 0.1 K/uL (0.0-0.7); EOS % 1.3 % (0.0-4.0); HEMATOCRIT 32.3 % (34.0-47.0); LYMPH # 1.7 K/uL (1.0-4.3); LYMPH % 21.8 % (20.0-40.0); MEAN CORPUSCULAR HEMOGLOBIN 29.3 pg (27.0-31.0); MEAN CORPUSCULAR HGB CONC 32.9 g/dL (33.0-37.0); MEAN PLATELET VOLUME 9.8 fl (7.2-11.7); MONO # 0.8 K/uL (0.0-0.8); NEUT # 5.3 K/uL (1.8-7.0); NEUT % 66.6 % (50.0-75.0); NRBC % 0.1 % (0.0-0.0); RED CELL DISTRIBUTION WIDTH 17.8 % (11.5-14.5); WHITE BLOOD COUNT 7.9 K/uL (4.8-10.8)
[2017-04-01 11:19] LABS: ALB/GLOB RATIO 1.2 (1.0-2.1); ALKALINE PHOSPHATASE 79 U/L (38-126); ALT/SGPT 30 U/L (9-52); AST/SGOT 45 U/L (14-36); BILIRUBIN,TOTAL 0.8 mg/dl (0.2-1.3); BLOOD UREA NITROGEN 21 mg/dl (7-17); CALCIUM 8.6 mg/dL (8.4-10.2); CARBON DIOXIDE 23 mmol/L (22-30); CHLORIDE 102 mmol/L (98-107); GFR AFRICAN-AMERICAN > 60; GLUCOSE,RANDOM 129 mg/dL (65-105); LIPASE 78 U/L (23-300); SODIUM 136 mmol/l (132-148); TOTAL PROTEIN 7.3 G/DL (6.3-8.2)
--- NOTE | 2017-04-01 11:20 | RAD ---
HISTORY: vomiting COMPARISON: Comparison chest dated 01/28/2017 FINDINGS: LUNGS: Poor inspiration with low lung volumes, mild crowded bronchovascular markings and mild bibasilar atelectasis. PLEURA: No significant pleural effusion identified, no pneumothorax apparent. CARDIOVASCULAR: Mild cardiomegaly. OSSEOUS STRUCTURES: No significant abnormalities. VISUALIZED UPPER ABDOMEN: Normal. OTHER FINDINGS: None. IMPRESSION: Poor inspiration with low lung volumes, mild crowded bronchovascular markings and mild bibasilar atelectasis.
--- NOTE | 2017-04-01 11:24 | CT ---
PROCEDURE: CT HEAD WITHOUT CONTRAST. HISTORY: weakness COMPARISON: Noncontrast head CT performed 01/28/17 TECHNIQUE: Axial computed tomography images were obtained through the head/brain without intravenous contrast. Radiation dose: Total exam DLP = 832.76 mGy-cm. This CT exam was performed using one or more of the following dose reduction techniques: Automated exposure control, adjustment of the mA and/or kV according to patient size, and/or use of iterative reconstruction technique. FINDINGS: HEMORRHAGE: No intracranial hemorrhage. BRAIN: Diffuse atrophy with prominence of the ventricles and sulci noted. No mass effect or edema. Intracranial atherosclerotic calcifications. Bilateral basal ganglia calcifications. Scattered white matter hypodensities, which are nonspecific, but often seen with chronic microvascular ischemic disease. Please note that MRI with diffusion imaging is more sensitive in the detection of acute ischemic event. VENTRICLES: No hydrocephalus. CALVARIUM: Unremarkable. PARANASAL SINUSES: Unremarkable as visualized. No significant inflammatory changes. MASTOID AIR CELLS: Unremarkable as visualized. No inflammatory changes. OTHER FINDINGS: None. IMPRESSION: Generalized atrophy. Nonspecific white matter changes.
[2017-04-01 11:33] LABS: POTASSIUM 4.5 MMOL/L (3.6-5.0)
[2017-04-01 12:31] LABS: RBC URINE 7 /hpf (0-3); URINE BILIRUBIN NEGATIVE (NEGATIVE); URINE BLOOD NEGATIVE (NEGATIVE); URINE COLOR YELLOW (YELLOW); URINE GLUCOSE (UA) NEG (Normal); URINE KETONE NEGATIVE (NEGATIVE); URINE LEUKOCYTE ESTERASE NEG Leu/uL (Negative); URINE PROTEIN NEGATIVE (NEGATIVE); URINE UROBILINOGEN 0.2-1.0 mg/dL (0.2-1.0); WBC URINE 2 /hpf (0-5)
[2017-04-01] MEDS ORDERED: Sodium Chloride 0.9% 500 ML IV STA (13:09)
[2017-04-01] MEDS ORDERED: Iohexol 300 100 ML IJ ONE (13:44)
--- NOTE | 2017-04-01 14:39 | CT ---
PROCEDURE: CT Abdomen and Pelvis with oral and IV contrast. HISTORY: vomiting, epigastric discomfort COMPARISON: None available. TECHNIQUE: Contiguous axial images of the abdomen and pelvis. Oral and IV contrast was administered. Coronal and Sagittal reformats generated and reviewed. Contrast dose: 95 mL Omnipaque 300 Radiation dose: Total exam DLP = 1007.26 mGy-cm. This CT exam was performed using one or more of the following dose reduction techniques: Automated exposure control, adjustment of the mA and/or kV according to patient size, and/or use of iterative reconstruction technique. FINDINGS: LOWER THORAX: Mild bibasilar atelectasis. No visible pleural effusion or pneumothorax. Small hiatal hernia. LIVER: Hepatomegaly. Hypoattenuation of the liver compatible with hepatic steatosis. GALLBLADDER AND BILE DUCTS: Cholecystectomy. PANCREAS: Unremarkable. SPLEEN: 5 mm too small to characterize splenic hypodensity. Otherwise grossly unremarkable. ADRENALS: Unremarkable. KIDNEYS AND URETERS: The kidneys enhance symmetrically. No hydronephrosis or obstructing renal calculus. 2.5 cm left renal cyst. Additional too small to characterize tiny left renal hypodensities statistically likely cysts. BLADDER: The urinary bladder appears unremarkable. REPRODUCTIVE: Uterus is absent, presumably APPENDIX: The appendix is not identified. No secondary signs of acute appendicitis. BOWEL: The stomach is nondistended. The bowel loops appear within normal limits of caliber without evidence of intestinal obstruction. Moderate constipation. Extensive sigmoid diverticulosis with mild associated inflammatory stranding ; correlate clinically for acute diverticulitis. PERITONEUM: No significant free fluid. No definite free air. LYMPH NODES: Scattered sub cm mesenteric and retroperitoneal lymph nodes, nonspecific. VASCULATURE: Dense atherosclerotic calcifications. Ectatic aorta. No aortic aneurysm. BONES: Degenerative. Osseous demineralization. OTHER FINDINGS: Tiny fat containing umbilical hernia. IMPRESSION: Extensive sigmoid diverticulosis with mild associated inflammatory stranding ; correlate clinically for acute diverticulitis. Moderate constipation. Hepatomegaly. Hepatic steatosis. 2.5 cm left renal cyst. Additional too small to characterize tiny left renal hypodensities statistically likely cysts. Additional findings as above.
[2017-04-01] MEDS ORDERED: metroNIDAZOLE 500mg/100ml NS 100 ML IVPB STA (14:56)
[2017-04-01] MEDS ORDERED: Ciprofloxacin 400mg/200ml D5W 400 MG/200 ML BAG IVPB STA (15:03)
[2017-04-01] MEDS ORDERED: metroNIDAZOLE 500mg/100ml NS 100 ML IVPB ONE (16:01)
[2017-04-01] MEDS ORDERED: Albuterol 0.083% Inhal Sol (2.5 mg/3 mL) UD IH PRN (16:32)
[2017-04-01] MEDS: metroNIDAZOLE 500mg/100ml NS 100 ML IVPB SCH (19:13)
[2017-04-01] MEDS: Ciprofloxacin 400mg/200ml D5W 400 MG/200 ML BAG IVPB SCH (21:03)
[2017-04-02] MEDS: metroNIDAZOLE 500mg/100ml NS 100 ML IVPB SCH ×2 (00:11→10:42)
[2017-04-02] MEDS ORDERED: Levothyroxine 175 MCG TAB PO SCH (06:30)
[2017-04-02] MEDS: Sodium Chloride 0.9% 1,000 ML IV SCH ×3 (06:41→12:25)
--- NOTE | 2017-04-02 07:32 | CP.PCM.HP ---
History of Present Illness - History of Present Illness History of Present Illness: pt admitted for diverticulitis and dehdyration. pt had approx 24h of abd cramping, n/v/d. nonbloody. bw and ct noted. pt ruben po liquids w/o complaints. gi consult pending. chornic conditions noted. office emr chart reviewed. Present on Admission - Present on Admission Any Indicators Present on Admission: Yes History of Uncontrolled Diabetes: Yes Review of Systems - Gastrointestinal Gastrointestinal: As Per HPI, Abdominal Pain, Nausea, Vomiting Past Patient History - Infectious Disease Hx of Infectious Diseases: None - Past Medical History & Family History Past Medical History?: Yes - Past Social History Smoking Status: Former Smoker - CARDIAC Hx Atrial Fibrillation: Yes Hx Congestive Heart Failure: Yes Hx Hypercholesterolemia: Yes Hx Hypertension: Yes - PULMONARY Hx Asthma: Yes Hx Bronchitis: Yes Hx Chronic Obstructive Pulmonary Disease (COPD): Yes Hx Pneumonia: Yes Hx Sleep Apnea: Yes - NEUROLOGICAL Hx Neurological Disorder: No - HEENT Hx HEENT Problems: No - RENAL Hx Chronic Kidney Disease: No - ENDOCRINE/METABOLIC Hx Hyperthyroidism: Yes Hx Hypothyroidism: Yes - HEMATOLOGICAL/ONCOLOGICAL Hx Human Immunodeficiency Virus (HIV): No - INTEGUMENTARY Hx Dermatological Problems: No - MUSCULOSKELETAL/RHEUMATOLOGICAL Hx Arthritis: Yes - GASTROINTESTINAL Hx Gastrointestinal Disorders: No - GENITOURINARY/GYNECOLOGICAL Hx Genitourinary Disorders: No - PSYCHIATRIC Hx Psychophysiologic Disorder: No Hx Substance Use: No - SURGICAL HISTORY Hx Cholecystectomy: Yes Hx Coronary Artery Bypass Graft: No - ANESTHESIA Hx Anesthesia: Yes Hx Anesthesia Reactions: No Hx Malignant Hyperthermia: No Meds Allergies/Adverse Reactions: Allergies Allergy/AdvReac Type Severity Reaction Status Date / Time No Known Allergies Allergy Verified 11/13/16 11:37 Physical Exam - Constitutional Appears: Well, Non-toxic, No Acute Distress - Head Exam Head Exam: ATRAUMATIC, NORMAL INSPECTION, NORMOCEPHALIC - Eye Exam Eye Exam: EOMI, Normal appearance, PERRL Pupil Exam: NORMAL ACCOMODATION, PERRL - ENT Exam ENT Exam: Mucous Membranes Moist, Normal Exam - Neck Exam Neck exam: Positive for: Normal Inspection - Respiratory Exam Respiratory Exam: Clear to Auscultation Bilateral, NORMAL BREATHING PATTERN - Cardiovascular Exam Cardiovascular Exam: REGULAR RHYTHM, RRR, +S1, +S2 - GI/Abdominal Exam GI & Abdominal Exam: Normal Bowel Sounds, Soft. absent: Tenderness - Extremities Exam Extremities exam: Positive for: full ROM, normal capillary refill, normal inspection, pedal pulses present - Back Exam Back exam: FULL ROM, NORMAL INSPECTION - Neurological Exam Neurological exam: Alert, CN II-XII Intact, Normal Gait, Oriented x3, Reflexes Normal - Psychiatric Exam Psychiatric exam: Normal Affect, Normal Mood - Skin Skin Exam: Dry, Intact, Normal Color, Warm Results - Vital Signs Recent Vital Signs: Last Vital Signs Temp 97.5 F L 04/02/17 00:13 Pulse 62 04/02/17 00:13 Resp 18 04/02/17 00:13 BP 152/71 H 04/02/17 00:13 Pulse Ox 97 04/02/17 00:13 - Labs Result Diagrams: 04/02/17 07:04 04/02/17 07:04 Labs: Laboratory Results - last 24 hr 04/01/17 04/01/17 04/01/17 10:55 10:55 12:17 WBC 7.9 RBC 3.63 L Hgb 10.6 L Hct 32.3 L MCV 89.0 MCH 29.3 MCHC 32.9 L RDW 17.8 H Plt Count 182 MPV 9.8 Neut % (Auto) 66.6 Lymph % (Auto) 21.8 Hand % (Auto) 10.0 Eos % (Auto) 1.3 Baso % (Auto) 0.3 Neut # 5.3 Lymph # 1.7 Hand # 0.8 Eos # 0.1 Baso # 0.0 Sodium 136 Potassium 4.5 Chloride 102 Carbon Dioxide 23 Anion Gap 16 BUN 21 H Creatinine 0.5 L Est GFR ( Amer) > 60 Est GFR (Non-Af Amer) > 60 POC Glucose (mg/dL) Random Glucose 129 H Calcium 8.6 Total Bilirubin 0.8 AST 45 H ALT 30 Alkaline Phosphatase 79 Troponin I < 0.0120 Total Protein 7.3 Albumin 4.0 Globulin 3.3 Albumin/Globulin Ratio 1.2 Lipase 78 Urine Color Yellow Urine Clarity Clear Urine pH 6.0 Ur Specific [place] 1.018 Urine Protein Negative Urine Glucose (UA) Neg Urine Ketones Negative Urine Blood Negative Urine Nitrate Negative Urine Bilirubin Negative Urine Urobilinogen 0.2-1.0 Ur Leukocyte Esterase Neg Urine RBC (Auto) 7 H Urine Microscopic WBC 2 Ur Squamous Epith Cells < 1 04/01/17 21:02 WBC RBC Hgb Hct MCV MCH MCHC RDW Plt Count MPV Neut % (Auto) Lymph % (Auto) Hand % (Auto) Eos % (Auto) Baso % (Auto) Neut # Lymph # Hand # Eos # Baso # Sodium Potassium Chloride Carbon Dioxide Anion Gap BUN Creatinine Est GFR ( Amer) Est GFR (Non-Af Amer) POC Glucose (mg/dL) 174 H Random Glucose Calcium Total Bilirubin AST ALT Alkaline Phosphatase Troponin I Total Protein Albumin Globulin Albumin/Globulin Ratio Lipase Urine Color Urine Clarity Urine pH Ur Specific [place] Urine Protein Urine Glucose (UA) Urine Ketones Urine Blood Urine Nitrate Urine Bilirubin Urine Urobilinogen Ur Leukocyte Esterase Urine RBC (Auto) Urine Microscopic WBC Ur Squamous Epith Cells Assessment & Plan (1) Diverticulitis Assessment and Plan: cipro/flagyl toradol, zofran prn ivf, po as ruben. liquid diet and adv as ruben gi am labs noted. with improvement of dehydration Status: Acute (2) DVT prophylaxis Assessment and Plan: scd and aehose ambualtion anticoag if admitted over 24h Status: Acute (3) Diabetes mellitus, type II Assessment and Plan: fsbg home meds Status: Chronic Decision To Admit - Pt Status Changed To: Hospital Disposition Of: Observation - . Bed Request Type: Med/Surg Admitting Physician: Viri Mi
[2017-04-02 07:34] LABS: BASO % 0.3 % (0.0-2.0); EOS # 0.1 K/uL (0.0-0.7); EOS % 1.7 % (0.0-4.0); HEMATOCRIT 31.2 % (34.0-47.0); LYMPH # 2.2 K/uL (1.0-4.3); LYMPH % 30.2 % (20.0-40.0); MEAN CORPUSCULAR HEMOGLOBIN 29.1 pg (27.0-31.0); MEAN CORPUSCULAR HGB CONC 31.9 g/dL (33.0-37.0); MEAN PLATELET VOLUME 10.2 fl (7.2-11.7); MONO # 0.7 K/uL (0.0-0.8); MONO % 9.9 % (0.0-10.0); NEUT # 4.2 K/uL (1.8-7.0); NEUT % 57.9 % (50.0-75.0); NRBC % 0.2 % (0.0-0.0); RED CELL DISTRIBUTION WIDTH 17.7 % (11.5-14.5); WHITE BLOOD COUNT 7.2 K/uL (4.8-10.8)
[2017-04-02 07:39] LABS: ALB/GLOB RATIO 1.2 (1.0-2.1); ALKALINE PHOSPHATASE 78 U/L (38-126); ALT/SGPT 33 U/L (9-52); AST/SGOT 34 U/L (14-36); BILIRUBIN,TOTAL 0.3 mg/dl (0.2-1.3); BLOOD UREA NITROGEN 11 mg/dl (7-17); CALCIUM 8.2 mg/dL (8.4-10.2); CARBON DIOXIDE 25 mmol/L (22-30); CHLORIDE 104 mmol/L (98-107); GFR AFRICAN-AMERICAN > 60; GLUCOSE,RANDOM 127 mg/dL (65-105); POTASSIUM 4.1 MMOL/L (3.6-5.0); SODIUM 138 mmol/l (132-148); TOTAL PROTEIN 6.6 G/DL (6.3-8.2)
[2017-04-02 07:48] LABS: MEAN CELL VOLUME 91.4 fl (81.0-99.0)
[2017-04-02 08:26] VITALS: O2SAT 96
[2017-04-02] MEDS ORDERED: Patient's Own Med (Sitagliptin Phos/Metformin Hcl [Janumet Xr 100-1,000 Mg Tablet] 1 TAB) PO SCH (09:00)
[2017-04-02] MEDS ORDERED: Olopatadine 0.1% Opht SOLN OU SCH (09:00)
[2017-04-02] MEDS ORDERED: Pantoprazole 40 mg EC Tab PO SCH (09:00)
[2017-04-02] MEDS: Ciprofloxacin 400mg/200ml D5W 400 MG/200 ML BAG IVPB SCH (10:43)
[2017-04-02 16:08] VITALS: BP 129/68; PULSE 78; RESP 20; TEMP 97.9
--- NOTE | 2017-04-03 08:06 | CON ---
DATE: 04/02/2017 REFERRING PHYSICIAN: Dr. Ramirez. REASON FOR CONSULTATION: Abdominal pain. HISTORY OF PRESENT ILLNESS: This is a very carlos eduardo 86-year-old female with multiple medical problems ____ she was admitted for diverticulitis and dehydration. The patient's abdominal pain is on and off for 24-48 hours prior with some cramping and some left lower quadrant discomfort. No nausea, vomiting , or diarrhea. The patient feels better, still having some bloating, is constipated at baseline, otherwise lying in bed, comfortable, in no apparent distress. PAST MEDICAL HISTORY: As above. PAST SURGICAL HISTORY: As above. MEDICATIONS: Have been reviewed. REVIEW OF SYSTEMS: All review of systems have been reviewed and negative apart from the HPI. PHYSICAL EXAMINATION: VITAL SIGNS: Here in the hospital are grossly unremarkable. GENERAL: This is a pleasant, elderly-appearing female lying in bed, comfortable , in no apparent distress. HEAD: Normocephalic, atraumatic. EYES: Pupils equally reactive to light bilaterally. No conjunctival pallor or icterus. NECK: Supple, normal range of motion. No lymphadenopathy appreciated. LUNGS: Coarse breath sounds bilaterally. HEART: S1, S2. Regular rate and rhythm. No murmurs appreciated. ABDOMEN: Soft, nontender. mild discomfort in the left lower quadrant. ____ RECTAL: Deferred. EXTREMITIES: Pulses present bilaterally. SKIN: Warm, dry, and intact. NEUROLOGIC: Alert and oriented x 3. LABORATORY DATA: Labs reviewed. WBC is 7.2 hemoglobin 10, hematocrit 31.2. Platelet count is 153. Glucose of 135. CAT scan shows a mild diverticulitis of the left lower quadrant. ASSESSMENT AND PLAN: This is an 86-year-old female with diverticulitis. From a gastrointestinal standpoint, antibiotics until 10-14 days. Advance diet as tolerated. Discharge planning: Colonoscopy no sooner than 8 weeks. Thank you for the consult. Timmy Hale MD, PhD cc: [id number] TT: 04/02/2017 12:07:23 Confirmation # [id number] Dictation # [id number] sophia LOVETT
--- NOTE | 2017-04-03 08:44 | CP.PCM.DIS ---
Provider - Provider Date of Admission: 04/01/17 10:34 Attending physician: Viri Mi MD Time Spent in preparation of Discharge (in minutes): 15 Diagnosis - Discharge Diagnosis (1) Diverticulitis Status: Acute (2) DVT prophylaxis Status: Acute (3) Diabetes mellitus, type II Status: Chronic Hospital Course - Lab Results Lab Results: Micro Results 04/01/17 20:50 Blood Blood Culture - Preliminary NO GROWTH AFTER 24 HOURS 04/01/17 17:15 Blood Blood Culture - Preliminary NO GROWTH AFTER 24 HOURS Most Recent Lab Values WBC 7.2 K/uL (4.8-10.8) 04/02/17 07:04 RBC 3.42 Mil/uL (3.80-5.20) L 04/02/17 07:04 Hgb 10.0 g/dL (12.0-16.0) L 04/02/17 07:04 Hct 31.2 % (34.0-47.0) L 04/02/17 07:04 MCV 91.4 fl (81.0-99.0) D 04/02/17 07:04 MCH 29.1 pg (27.0-31.0) 04/02/17 07:04 MCHC 31.9 g/dL (33.0-37.0) L 04/02/17 07:04 RDW 17.7 % (11.5-14.5) H 04/02/17 07:04 Plt Count 153 K/uL (130-400) 04/02/17 07:04 MPV 10.2 fl (7.2-11.7) 04/02/17 07:04 Neut % (Auto) 57.9 % (50.0-75.0) 04/02/17 07:04 Lymph % (Auto) 30.2 % (20.0-40.0) 04/02/17 07:04 [place] % (Auto) 9.9 % (0.0-10.0) 04/02/17 07:04 Eos % (Auto) 1.7 % (0.0-4.0) 04/02/17 07:04 Baso % (Auto) 0.3 % (0.0-2.0) 04/02/17 07:04 Neut # 4.2 K/uL (1.8-7.0) 04/02/17 07:04 Lymph # 2.2 K/uL (1.0-4.3) 04/02/17 07:04 [place] # 0.7 K/uL (0.0-0.8) 04/02/17 07:04 Eos # 0.1 K/uL (0.0-0.7) 04/02/17 07:04 Baso # 0.0 K/uL (0.0-0.2) 04/02/17 07:04 Sodium 138 mmol/l (132-148) 04/02/17 07:04 Potassium 4.1 MMOL/L (3.6-5.0) 04/02/17 07:04 Chloride 104 mmol/L (98-107) 04/02/17 07:04 Carbon Dioxide 25 mmol/L (22-30) 04/02/17 07:04 Anion Gap 14 (10-20) 04/02/17 07:04 BUN 11 mg/dl (7-17) 04/02/17 07:04 Creatinine 0.5 mg/dL (0.7-1.2) L 04/02/17 07:04 Est GFR ( Amer) > 60 04/02/17 07:04 Est GFR (Non-Af Amer) > 60 04/02/17 07:04 POC Glucose (mg/dL) 259 mg/dL (65-110) H 04/02/17 15:44 Random Glucose 127 mg/dL (65-105) H 04/02/17 07:04 Calcium 8.2 mg/dL (8.4-10.2) L 04/02/17 07:04 Total Bilirubin 0.3 mg/dl (0.2-1.3) 04/02/17 07:04 AST 34 U/L (14-36) 04/02/17 07:04 ALT 33 U/L (9-52) 04/02/17 07:04 Alkaline Phosphatase 78 U/L (38-126) 04/02/17 07:04 Troponin I < 0.0120 ng/mL (0.00-0.120) 04/01/17 10:55 Total Protein 6.6 G/DL (6.3-8.2) 04/02/17 07:04 Albumin 3.6 g/dL (3.5-5.0) 04/02/17 07:04 Globulin 3.0 gm/dL (2.2-3.9) 04/02/17 07:04 Albumin/Globulin Ratio 1.2 (1.0-2.1) 04/02/17 07:04 Lipase 78 U/L (23-300) 04/01/17 10:55 Urine Color Yellow (YELLOW) 04/01/17 12:17 Urine Clarity Clear (Clear) 04/01/17 12:17 Urine pH 6.0 (5.0-8.0) 04/01/17 12:17 Ur Specific [place] 1.018 (1.003-1.030) 04/01/17 12:17 Urine Protein Negative mg/dL (NEGATIVE) 04/01/17 12:17 Urine Glucose (UA) Neg mg/dL (Normal) 04/01/17 12:17 Urine Ketones Negative mg/dL (NEGATIVE) 04/01/17 12:17 Urine Blood Negative (NEGATIVE) 04/01/17 12:17 Urine Nitrate Negative (NEGATIVE) 04/01/17 12:17 Urine Bilirubin Negative (NEGATIVE) 04/01/17 12:17 Urine Urobilinogen 0.2-1.0 mg/dL (0.2-1.0) 04/01/17 12:17 Ur Leukocyte Esterase Neg [place]/uL (Negative) 04/01/17 12:17 Urine RBC (Auto) 7 /hpf (0-3) H 04/01/17 12:17 Urine Microscopic WBC 2 /hpf (0-5) 04/01/17 12:17 Ur Squamous Epith Cells < 1 /hpf (0-5) 04/01/17 12:17 Discharge Exam - Head Exam Head Exam: ATRAUMATIC, NORMAL INSPECTION, NORMOCEPHALIC Discharge Plan - Discharge Medications Prescriptions: Ciprofloxacin HCl [Cipro] 500 mg PO BID #14 tablet Metronidazole [Flagyl] 500 mg PO TID #21 tab - Follow Up Plan Condition: FAIR Disposition: HOME/ ROUTINE Instructions: Diverticulitis (DC) Additional Instructions: BLAND DIET. FOLLOW UP IN 2 DAYS [facility]. RETURNED TO ER IF SYMPTOMS WORSEN. fianl dx diverticulitis, dehydration clearded by gi for dc Referrals: Viri Mi MD [Staff Provider] -
--- NOTE | 2017-04-04 19:10 | CARD ---
APPROVED REPORT EKG Measurement Heart [id number] <Conclusion> Normal sinus rhythm Incomplete right bundle branch block Left ventricular hypertrophy with repolarization abnormality Abnormal ECG
== END 2017-04-02 17:32 | disposition home or self-care (01) ==
LOC: H.ER 09:42 → H.EROBSV 10:34 → H.ERHOLD 15:56 → H.MEDSURG1 17:01
PROVIDERS: ADMIT Family Medicine; ATTEND Family Medicine
DX: K57.92 Diverticulitis of intestine, part unspecified, without perforation or abscess without bleeding (principal); E86.0 Dehydration; G47.30 Sleep apnea, unspecified; I11.0 Hypertensive heart disease with heart failure; I50.9 Heart failure, unspecified; I48.91 Unspecified atrial fibrillation; J44.9 Chronic obstructive pulmonary disease, unspecified; I25.10 Atherosclerotic heart disease of native coronary artery without angina pectoris; E78.00 Pure hypercholesterolemia, unspecified; E11.9 Type 2 diabetes mellitus without complications; J45.909 Unspecified asthma, uncomplicated; M19.90 Unspecified osteoarthritis, unspecified site
CPT/HCPCS: 36415; 70450; 71010; 74177; 80053; 81003; 82948; 83690; 84484; 85025; 87040; 96374; 99285; G0378; J0744; J1885; J2405; J7040; Q9966; Q9967

== ENCOUNTER 2017-04-10 13:53 | Observation (INO) | payer MEDICARE, MEDICAID ==
[2017-04-10 14:46] LABS: BASO # 0.1 K/uL (0.0-0.2); BASO % 0.5 % (0.0-2.0); EOS # 0.2 K/uL (0.0-0.7); EOS % 1.6 % (0.0-4.0); HEMATOCRIT 29.9 % (34.0-47.0); LYMPH % 18.6 % (20.0-40.0); MEAN CELL VOLUME 88.3 fl (81.0-99.0); MEAN CORPUSCULAR HEMOGLOBIN 29.4 pg (27.0-31.0); MEAN CORPUSCULAR HGB CONC 33.3 g/dL (33.0-37.0); MEAN PLATELET VOLUME 8.6 fl (7.2-11.7); MONO % 9.4 % (0.0-10.0); NEUT # 7.4 K/uL (1.8-7.0); NEUT % 69.9 % (50.0-75.0); NRBC % 0.1 % (0.0-0.0); RED CELL DISTRIBUTION WIDTH 17.4 % (11.5-14.5); WHITE BLOOD COUNT 10.5 K/uL (4.8-10.8)
--- NOTE | 2017-04-10 15:06 | RAD ---
PROCEDURE: Radiographs of the Left Shoulder HISTORY: L shoulder pain COMPARISON: Correlation made with prior radiographs left shoulder dated 03/11/2015. FINDINGS: BONES: No evidence of acute displaced fracture nor dislocation. . JOINTS: Mild degenerative changes left acromioclavicular with small spur along the inferior margin of the AC joint. There is also mild degenerative changes left glenohumeral joint. SOFT TISSUES: Normal. OTHER FINDINGS: None. IMPRESSION: Mild DJD as detailed above. No acute fractures.
[2017-04-10 15:08] LABS: ALB/GLOB RATIO 1.2 (1.0-2.1); ALKALINE PHOSPHATASE 84 U/L (38-126); ALT/SGPT 35 U/L (9-52); AST/SGOT 47 U/L (14-36); BILIRUBIN,TOTAL 0.2 mg/dl (0.2-1.3); BLOOD UREA NITROGEN 14 mg/dl (7-17); CALCIUM 8.5 mg/dL (8.4-10.2); CARBON DIOXIDE 25 mmol/L (22-30); CHLORIDE 103 mmol/L (98-107); GFR AFRICAN-AMERICAN > 60; GLUCOSE,RANDOM 147 mg/dL (65-105); POTASSIUM 4.2 MMOL/L (3.6-5.0); SODIUM 137 mmol/l (132-148); TOTAL PROTEIN 7.1 G/DL (6.3-8.2)
--- NOTE | 2017-04-10 15:08 | RAD ---
HISTORY: chest pain COMPARISON: Comparison chest dated 04/01/2017 TECHNIQUE: Chest PA and lateral FINDINGS: LUNGS: Poor inspiration with low lung volumes, mild crowded bronchovascular markings and mild bibasilar atelectasis. Mild biapical pleural thickening PLEURA: No significant pleural effusion identified. No pneumothorax apparent. CARDIOVASCULAR: Heart size mildly enlarged OSSEOUS STRUCTURES: Mild multilevel degenerative spondylosis with mild the dextroscoliosis centered in the lower thoracic region. . VISUALIZED UPPER ABDOMEN: Normal. OTHER FINDINGS: None. IMPRESSION: Poor inspiration with low lung volumes, mild crowded bronchovascular markings and mild bibasilar atelectasis. Mild biapical pleural thickening
--- NOTE | 2017-04-10 15:14 | ED PDOC ---
- Laboratory Results Result Diagrams: 04/10/17 14:40 04/10/17 14:40 - ECG O2 Sat by Pulse Oximetry: 100 (RA) Pulse Ox Interpretation: Normal Medical Decision Making Medical Decision Makin:00 Patient transferred over to provider upon receiving endorsement from Dr. Hawthorne. Pending workup, reassessment, and final disposition. 16:25 Labs demonstrate mild anemia, otherwise no clinically significant lab abnormalities, inclusive of negative cardiac enzymes. Discussed case with Eliud Frias MD, patient's new primary care provider, who presents concern for patient's cognitive ability to care for herself and her demented 91 year old whom she lives with. Patient will be hospitalized under hospitalist service, case discussed with Dr. Mullen and Dr Bond Hospitalist. In addition to hospitalization for acute chest pain, Dr. Frias recommends a geriatric psychological evaluation. Accession No. : [id number] Patient Name / ID : KEISHA POWELL / [id number] Exam Date : 04/10/2017 16:18:03 ( Approved ) Study Comment : Sex / Age : F / 86Y Creator : Hemant Sauer MD Dictator : Hemant Sauer MD Senior Physical Therapist : Hog Scalder : Hemant Sauer MD Approver2 : Report Date : 04/10/2017 17:20:31 My Comment : PROCEDURE: CT Chest with contrast (Pulmonary Angiogram) HISTORY: Left-sided chest pain COMPARISON: Comparison made with CT scan chest dated 08/27/2015. TECHNIQUE: Axial computed tomography images were obtained of the chest in the pulmonary arterial phase of enhancement following injection of approximately 80 cc of Visipaque 320 contrast material employing CTA protocol. . Coronal and sagittal reformatted images were created and reviewed. Radiation dose: Total exam DLP = 363.54 mGy-cm. This CT exam was performed using one or more of the following dose reduction techniques: Automated exposure control, adjustment of the mA and/or kV according to patient size, and/or use of iterative reconstruction technique. FINDINGS: PULMONARY ARTERIES: The study is somewhat limited and due to suboptimal opacification of the pulmonary arteries. . Crossing streak artifact related to the left upper extremity which has not been moved from the field of view also limits evaluation. . . The visualized portions of the pulmonary trunk, right and left main, lobar, segmental branches of the pulmonary arteries appear relatively well opacified so far as can be seen within limitations of this exam. . . The subsegmental branches are poorly delineated. AORTA: The ascending thoracic aorta exhibits normal caliber measuring approximately 3.15 cm. Descending thoracic aorta measures approximately 2.46 cm. Pulmonary trunk measures approximately 2.85 cm. LUNGS: Evaluation of the lung parenchyma reveals multiple tiny blebs signal the lung apices. Ground-glass/mosaic opacities seen in upper and lower lobes. Findings may represent the sequela of air trapping - small airways disease. Mild edema not excluded. PLEURAL SPACES: Unremarkable. No effusion or pneuomothorax. HEART: Heart appears enlarged. No significant pericardial effusion. Coronary artery calcifications are present. . LYMPH NODES: No significant mediastinal or hilar adenopathy. . Note made of what could represent small calcified lymph node at the level of the EG junction unchanged from prior exam. . Central airways are midline and patent. No endobronchial lesion seen. BONES, CHEST WALL: Unremarkable. Multilevel degenerative spondylosis of the thoracic spine. There are no acute compression fractures nor retropulsed fragments. OTHER FINDINGS: Central airway is midline and patent. No obvious endobronchial lesions. IMPRESSION: Limited study as described above. No definitive evidence of central pulmonary embolus. Cardiomegaly. Scribe Attestation: Documented by Junito Moise, acting as a scribe for Joie Velez MD. Provider Scribe Attestation: All medical record entries made by the Scribe were at my direction and personally dictated by me. I have reviewed the chart and agree that the record accurately reflects my personal performance of the history, physical exam, medical decision making, and the department course for this patient. I have also personally directed, reviewed, and agree with the discharge instructions and disposition. Disposition Counseled Patient/Family Regarding: Studies Performed, Diagnosis - Clinical Impression Clinical Impression: Acute chest pain - POA Present On Arrival: None - Disposition Disposition: Hospitalized as Observation Patient Disposition Time: 15:00 Condition: GUARDED
--- NOTE | 2017-04-10 15:18 | ED PDOC ---
HPI: Chest Pain Time Seen by Provider: 04/10/17 14:03 Chief Complaint (Nursing): Chest Pain Chief Complaint (Provider): Chest Pain History Per: Patient History/Exam Limitations: no limitations Onset/Duration Of Symptoms: Days (x1 day (overnight)) Current Symptoms Are (Timing): Still Present Quality: Sharp Associated Symptoms: denies: Nausea Exacerbating Factors: Turning, Movement, Deep Breathing Additional History Per: Family Additional Complaint(s): 86 y/o female with a past medical history of diabetes, thyroid disease, and questionable coronary artery disease presents to the emergency department with a complaint of an acute onset of left sided chest pain and shoulder pain that began overnight. Describes the pain as sharp and worsens with movement or deep breath. Denies fever, cough, syncope, or dizziness. Of note, patient presents from home with family member on recommendation of [facility] office supervisor, Dr. Eliud Frias, who was doing home visits from [facility] ( [phone]). PMD: [facility] Dr Frias (prior [place], family or patient doesnt remember new care mgr name, prior was Dr Boyd) - Risk Factors PE Risk Factors: Pos: CHF Past Medical History Reviewed: Historical Data, Nursing Documentation, Vital Signs Vital Signs: Last Vital Signs Temp 98.7 F 04/10/17 16:55 Pulse 69 04/10/17 16:55 Resp 14 04/10/17 16:55 BP 142/72 04/10/17 16:55 Pulse Ox 100 04/10/17 17:12 - Medical History PMH: Arthritis, Asthma, Atrial Fibrillation, Bronchitis, CAD (Questionable), CHF , COPD, Diabetes (type II), Diverticulitis, HTN, Hypercholesterolemia, Hyperthyroidism, Hypothyroidism, Pneumonia, Sleep Apnea Denies: HIV, Chronic Kidney Disease - Surgical History Surgical History: Back Surgery, Cholecystectomy Denies: CABG - Family History Family History: States: Unknown Family Hx, Hypertension - Social History Current smoker - smoking cessation education provided: No Alcohol: None Drugs: Denies - Immunization History Hx Tetanus Toxoid Vaccination: No Hx Influenza Vaccination: No Hx Pneumococcal Vaccination: No - Home Medications Home Medications: Ambulatory Orders Medication Instructions Recorded Omeprazole 20 mg PO DAILY 06/22/16 Levothyroxine [Synthroid] 175 mcg PO DAILY 11/13/16 Albuterol 0.083% [Albuterol 0.083% 2.5 mg IH Q4H PRN #100 neb 11/15/16 Inhal [place] (2.5 mg/3 ml) UD] Amiodarone [Cordarone] 100 mg PO DAILY 01/28/17 Sitagliptin Phos/Metformin HCl 1 tab PO DAILY 01/28/17 [Janumet Xr 100-1,000 mg Tablet] Aspirin [Ecotrin] 81 mg PO DAILY 04/01/17 Atorvastatin [Lipitor] 40 mg PO DAILY 04/01/17 Ferrous Sulfate [Feosol] 325 mg PO DAILY 04/01/17 Isosorbide Mononitrate [Imdur] 30 mg PO DAILY 04/01/17 Levocetirizine Dihydrochloride 5 mg PO DAILY 04/01/17 [Xyzal] Losartan [Cozaar] 25 mg PO DAILY 04/01/17 Olopatadine HCl [Pazeo] 1 drop EACHEYE DAILY 04/01/17 amLODIPine [Norvasc] 5 mg PO DAILY 04/01/17 traMADol [Ultram] 50 mg PO Q6H PRN 04/01/17 - Allergies Allergies/Adverse Reactions: Allergies Allergy/AdvReac Type Severity Reaction Status Date / Time No Known Allergies Allergy Verified 04/10/17 13:57 Review of Systems ROS Statement: Except As Marked, All Systems Reviewed And Found Negative Constitutional: Negative for: Fever Cardiovascular: Positive for: Chest Pain (Left-sided) Respiratory: Negative for: Cough Musculoskeletal: Positive for: Shoulder Pain Neurological: Negative for: Dizziness, Other (Syncope) Physical Exam - Reviewed Nursing Documentation Reviewed: Yes Vital Signs Reviewed: Yes - Physical Exam Appears: Positive for: Non-toxic, In Acute Distress (mild painful distress ) Head Exam: Positive for: ATRAUMATIC, NORMOCEPHALIC Skin: Positive for: Normal Color, Warm, Dry Neck: Positive for: Normal, Supple Cardiovascular/Chest: Positive for: Regular Rate, Rhythm, Other (Tenderness of the left chest wall). Negative for: Chest Non Tender, Murmur Respiratory: Positive for: Normal Breath Sounds. Negative for: Accessory Muscle Use, Wheezing, Respiratory Distress Gastrointestinal/Abdominal: Positive for: Normal Exam, Soft. Negative for: Tenderness Extremity: Positive for: Normal ROM, Other (Tendreness with ROM of the left shoulder). Negative for: Pedal Edema Neurologic/Psych: Positive for: Alert, Oriented. Negative for: Motor/Sensory Deficits - Laboratory Results Result Diagrams: 04/10/17 14:40 04/10/17 14:40 - ECG O2 Sat by Pulse Oximetry: 100 (RA) Pulse Ox Interpretation: Normal Medical Decision Making Medical Decision Making: Time: 14:03 Initial impression: Chest discomfort; atypical in nature with musculoskeletal component Initial plan: --Electrocardiogram Stat --COMP Metabolic Panel --Total Creatinine Kinase --Troponin I Stat --EKG-ED (ENURTX) Stat --Partial Thromboplastin Time (COAG) --Prothrombin Time (COAG) --Chest Two Views (PA/LAT) (RAD) --Revaluation --EKG: sinus at 65 bpm with no specific ST changes with slightly different morphology than prior EKG earlier this year Time: 15:00 --Endorsed to Dr. Velez; pending results and discussion with primary team . Time: 15:04 --Shoulder x-ray FINDINGS: BONES: No evidence of acute displaced fracture nor dislocation. . JOINTS: Mild degenerative changes left acromioclavicular with small spur along the inferior margin of the AC joint. There is also mild degenerative changes left glenohumeral joint. SOFT TISSUES: Normal. OTHER FINDINGS: None. IMPRESSION: Mild DJD as detailed above. No acute fractures. Time: 15:06 --Chest X-ray FINDINGS: LUNGS: Poor inspiration with low lung volumes, mild crowded bronchovascular markings and mild bibasilar atelectasis. Mild biapical pleural thickening PLEURA: No significant pleural effusion identified. No pneumothorax apparent. CARDIOVASCULAR: Heart size mildly enlarged OSSEOUS STRUCTURES: Mild multilevel degenerative spondylosis with mild the dextroscoliosis centered in the lower thoracic region. . VISUALIZED UPPER ABDOMEN: Normal. OTHER FINDINGS: None. IMPRESSION: Poor inspiration with low lung volumes, mild crowded bronchovascular markings and mild bibasilar atelectasis. Mild biapical pleural thickening Scribe Attestation: Documented by Latasha Villafuerte, acting as a scribe for Timmy Hawthorne MD. Provider Scribe Attestation: All medical record entries made by the Scribe were at my direction and personally dictated by me. I have reviewed the chart and agree that the record accurately reflects my personal performance of the history, physical exam, medical decision making, and the department course for this patient. I have also personally directed, reviewed, and agree with the discharge instructions and disposition. Disposition - Clinical Impression Clinical Impression: Acute chest pain - Patient ED Disposition Is Patient to be Admitted: Transfer of Care - Disposition Disposition: Transfer of Care Disposition Time: 15:00 Condition: GUARDED Patient Signed Over To: Joie Velez Handoff Comments: pending workup d/w PMD and dispo
[2017-04-10 15:29] LABS: PARTIAL THROMBOPLASTIN TIME 29.6 Seconds (25.6-37.1)
[2017-04-10] MEDS ORDERED: Iodixanol 320 MG/ML 100 ML BOTTLE IV ONE (16:04)
[2017-04-10] MEDS ORDERED: Sodium Chloride 0.9% 50 ML IV ONE (16:05)
[2017-04-10] MEDS ORDERED: Nitroglycerin 2% 15 INCH/30 GM TUBE TOP STA (16:22)
--- NOTE | 2017-04-10 17:19 | CP.PCM.HP ---
History of Present Illness - History of Present Illness History of Present Illness: CC: shoulder pain HPI: 86 year old female PMH CHF, CAD, HTN, hypothyroid, diabetes mellitus, presents with a one day history of mod severe sharp should pain radiating down arm, associated with chest pain and very mild dyspnea. This pain occurs both at rest and on movement, waxes and wanes. Patient initially experienced this pain yesterday when she feels she moved the wrong way, and the pain worsened today, which is what brought her to the ER. She has no other complaints at this time. Vitals are stable. No acute distress. No active chest pain. Denies recent illness, fever, chills, chest pain, dyspnea, abdominal pain, dysuria, hematuria, hematochezia, melena, n/v/c/d. ROS: per HPI, 12 systems reviewed and negative by me PMD: DR. KASPER, [facility] PMH: CHF CAD HTN hypothyroid diabetes mellitus PSH: denies FH: DM HTN SH: denies tobacco, ETOH, IVDU Meds: as below Allergies: NKDA Vitals: reviewed and currently stable Temp Pulse Resp BP Pulse Ox 98.7 F 69 14 142/72 100 04/10/17 16:55 04/10/17 16:55 04/10/17 16:55 04/10/17 16:55 04/10/17 17:13 Exam: GEN: WDWN, alert, cooperative HEENT: NCAT, PERRL, EOMI NECK: supple, no JVD, no lymphadenopathy CARDIAC: +S1S2 RRR LUNG: CTAB No WRR ABD: SOFT NT ND BSX4 NO MASSES NO HSM EXT: +pedal pulses, equal strength NEURO: AAOx3 SKIN warm, dry PSYCH normal mood, normal affect 04/10/17 14:40 04/10/17 14:40 TROP NEG X1 Active Medications 04/11/17 09:00 Amiodarone [Cordarone] 100 mg PO DAILY Aspirin [Ecotrin] 81 mg PO DAILY Atorvastatin [Lipitor] 40 mg PO DAILY Enoxaparin [Lovenox] 40 mg SC DAILY Ferrous Sulfate [Feosol] 325 mg PO DAILY Isosorbide Mononitrate [Imdur] 30 mg PO DAILY Levothyroxine [Synthroid] 175 mcg PO DAILY Losartan [Cozaar] 25 mg PO DAILY Olopatadine HCl [Pazeo] 1 drop EACHEYE DAILY Sitagliptin Phos/Metformin HCl [Janumet Xr 100-1,000 mg Tablet] 1 tab PO DAILY amLODIPine [Norvasc] 5 mg PO DAILY ASSESSMENT AND PLAN 86 year old female PMH CHF, CAD, HTN, AFib, hypothyroid, diabetes mellitus, presents with a one day history of mod severe sharp should pain radiating down arm, associated with chest pain and very mild dyspnea. This pain occurs both at rest and on movement, waxes and wanes. Patient initially experienced this pain yesterday when she feels she moved the wrong way, and the pain worsened today, which is what brought her to the ER. She has no other complaints at this time. Vitals are stable. No acute distress. No active chest pain. Chest Pain CHF CAD HTN Trend cardiac enzymes EKG shows NSR with old t wave inversions in lateral leads no active chest pain, repeat EKG if chest pain recurs continue ASA, Lipitor, Imdur, Cozaar, Norvasc Lipid panel tomorrow Afib Rate controlled continue Amiodarone DJD, shoulder Motrin for pain HYPOTHYROID continue Synthroid TSH in AM DIABETES MELLITUS ISS Accuchecks continue janumet equivalent VTE lovenox Present on Admission - Present on Admission Any Indicators Present on Admission: No Past Patient History - Infectious Disease Hx of Infectious Diseases: None - Past Medical History & Family History Past Medical History?: Yes - Past Social History Alcohol: None Drugs: Denies - CARDIAC Hx Atrial Fibrillation: Yes Hx Congestive Heart Failure: Yes Hx Hypercholesterolemia: Yes Hx Hypertension: Yes - PULMONARY Hx Asthma: Yes Hx Bronchitis: Yes Hx Chronic Obstructive Pulmonary Disease (COPD): Yes Hx Pneumonia: Yes Hx Sleep Apnea: Yes - NEUROLOGICAL Hx Neurological Disorder: No - HEENT Hx HEENT Problems: No - RENAL Hx Chronic Kidney Disease: No - ENDOCRINE/METABOLIC Hx Hyperthyroidism: Yes Hx Hypothyroidism: Yes - HEMATOLOGICAL/ONCOLOGICAL Hx Human Immunodeficiency Virus (HIV): No - INTEGUMENTARY Hx Dermatological Problems: No - MUSCULOSKELETAL/RHEUMATOLOGICAL Hx Arthritis: Yes - GASTROINTESTINAL Hx Diverticulitis: Yes - GENITOURINARY/GYNECOLOGICAL Hx Genitourinary Disorders: No - PSYCHIATRIC Hx Psychophysiologic Disorder: No Hx Substance Use: No - SURGICAL HISTORY Hx Cholecystectomy: Yes Hx Coronary Artery Bypass Graft: No - ANESTHESIA Hx Anesthesia: Yes Hx Anesthesia Reactions: No Hx Malignant Hyperthermia: No Meds Allergies/Adverse Reactions: Allergies Allergy/AdvReac Type Severity Reaction Status Date / Time No Known Allergies Allergy Verified 04/10/17 13:57 Results - Vital Signs Recent Vital Signs: Last Vital Signs Temp 98.7 F 04/10/17 16:55 Pulse 69 04/10/17 16:55 Resp 14 04/10/17 16:55 BP 142/72 04/10/17 16:55 Pulse Ox 99 04/10/17 16:55 - Labs Result Diagrams: 04/10/17 14:40 04/10/17 14:40
--- NOTE | 2017-04-10 17:22 | CT ---
PROCEDURE: CT Chest with contrast (Pulmonary Angiogram) HISTORY: Left-sided chest pain COMPARISON: Comparison made with CT scan chest dated 08/27/2015. TECHNIQUE: Axial computed tomography images were obtained of the chest in the pulmonary arterial phase of enhancement following injection of approximately 80 cc of Visipaque 320 contrast material employing CTA protocol. . Coronal and sagittal reformatted images were created and reviewed. Radiation dose: Total exam DLP = 363.54 mGy-cm. This CT exam was performed using one or more of the following dose reduction techniques: Automated exposure control, adjustment of the mA and/or kV according to patient size, and/or use of iterative reconstruction technique. FINDINGS: PULMONARY ARTERIES: The study is somewhat limited and due to suboptimal opacification of the pulmonary arteries. . Crossing streak artifact related to the left upper extremity which has not been moved from the field of view also limits evaluation. . . The visualized portions of the pulmonary trunk, right and left main, lobar, segmental branches of the pulmonary arteries appear relatively well opacified so far as can be seen within limitations of this exam. . . The subsegmental branches are poorly delineated. AORTA: The ascending thoracic aorta exhibits normal caliber measuring approximately 3.15 cm. Descending thoracic aorta measures approximately 2.46 cm. Pulmonary trunk measures approximately 2.85 cm. LUNGS: Evaluation of the lung parenchyma reveals multiple tiny blebs signal the lung apices. Ground-glass/mosaic opacities seen in upper and lower lobes. Findings may represent the sequela of air trapping - small airways disease. Mild edema not excluded. PLEURAL SPACES: Unremarkable. No effusion or pneuomothorax. HEART: Heart appears enlarged. No significant pericardial effusion. Coronary artery calcifications are present. . LYMPH NODES: No significant mediastinal or hilar adenopathy. . Note made of what could represent small calcified lymph node at the level of the EG junction unchanged from prior exam. . Central airways are midline and patent. No endobronchial lesion seen. BONES, CHEST WALL: Unremarkable. Multilevel degenerative spondylosis of the thoracic spine. There are no acute compression fractures nor retropulsed fragments. OTHER FINDINGS: Central airway is midline and patent. No obvious endobronchial lesions. IMPRESSION: Limited study as described above. No definitive evidence of central pulmonary embolus. Cardiomegaly.
[2017-04-10 18:42] VITALS: BMI 32.3
[2017-04-11] MEDS: Insulin Lispro (humaLOG) 100 Units/ml Inj SC SCH ×3 (00:40→12:39)
[2017-04-11 07:52] LABS: THYROID STIMULATING HORMONE 15.8 mIU/ML (0.46-4.68)
[2017-04-11 08:23] VITALS: BP 133/69; PULSE 76; RESP 18; TEMP 98.6; O2SAT 95
[2017-04-11] MEDS ORDERED: Enoxaparin 40 mg Syringe SC SCH (09:00)
[2017-04-11] MEDS ORDERED: Patient's Own Med (Sitagliptin Phos/Metformin Hcl [Janumet Xr 100-1,000 Mg Tablet] 1 TAB) PO SCH (09:00)
[2017-04-11] MEDS ORDERED: Levothyroxine 175 MCG TAB PO SCH (09:00)
[2017-04-11] MEDS ORDERED: Olopatadine 0.1% Opht SOLN OU SCH (09:00)
--- NOTE | 2017-04-11 09:03 | CARD ---
APPROVED REPORT EKG Measurement Heart [id number] <Conclusion> Normal sinus rhythm Moderate voltage criteria for LVH, may be normal variant T wave abnormality, consider anterolateral ischemia Abnormal ECG
--- NOTE | 2017-04-11 09:56 | CP.PCM.DIS ---
Provider - Provider Date of Admission: 04/10/17 16:23 Attending physician: Sonido Mullen MD Time Spent in preparation of Discharge (in minutes): 30 Diagnosis - Discharge Diagnosis (1) Acute chest pain Status: Acute Hospital Course - Lab Results Lab Results: Most Recent Lab Values WBC 10.5 K/uL (4.8-10.8) 04/10/17 14:40 RBC 3.38 Mil/uL (3.80-5.20) L 04/10/17 14:40 Hgb 10.0 g/dL (12.0-16.0) L 04/10/17 14:40 Hct 29.9 % (34.0-47.0) L 04/10/17 14:40 MCV 88.3 fl (81.0-99.0) D 04/10/17 14:40 MCH 29.4 pg (27.0-31.0) 04/10/17 14:40 MCHC 33.3 g/dL (33.0-37.0) 04/10/17 14:40 RDW 17.4 % (11.5-14.5) H 04/10/17 14:40 Plt Count 214 K/uL (130-400) 04/10/17 14:40 MPV 8.6 fl (7.2-11.7) 04/10/17 14:40 Neut % (Auto) 69.9 % (50.0-75.0) 04/10/17 14:40 Lymph % (Auto) 18.6 % (20.0-40.0) L 04/10/17 14:40 [place] % (Auto) 9.4 % (0.0-10.0) 04/10/17 14:40 Eos % (Auto) 1.6 % (0.0-4.0) 04/10/17 14:40 Baso % (Auto) 0.5 % (0.0-2.0) 04/10/17 14:40 Neut # 7.4 K/uL (1.8-7.0) H 04/10/17 14:40 Lymph # 2.0 K/uL (1.0-4.3) 04/10/17 14:40 [place] # 1.0 K/uL (0.0-0.8) H 04/10/17 14:40 Eos # 0.2 K/uL (0.0-0.7) 04/10/17 14:40 Baso # 0.1 K/uL (0.0-0.2) 04/10/17 14:40 PT 13.4 Seconds (9.8-13.1) H 04/10/17 14:40 INR 1.2 (0.9-1.2) 04/10/17 14:40 APTT 29.6 Seconds (25.6-37.1) 04/10/17 14:40 Sodium 137 mmol/l (132-148) 04/10/17 14:40 Potassium 4.2 MMOL/L (3.6-5.0) 04/10/17 14:40 Chloride 103 mmol/L (98-107) 04/10/17 14:40 Carbon Dioxide 25 mmol/L (22-30) 04/10/17 14:40 Anion Gap 13 (10-20) 04/10/17 14:40 BUN 14 mg/dl (7-17) 04/10/17 14:40 Creatinine 0.5 mg/dL (0.7-1.2) L 04/10/17 14:40 Est GFR ( Amer) > 60 04/10/17 14:40 Est GFR (Non-Af Amer) > 60 04/10/17 14:40 POC Glucose (mg/dL) 112 mg/dL (65-110) H 04/11/17 05:29 Random Glucose 147 mg/dL (65-105) H 04/10/17 14:40 Calcium 8.5 mg/dL (8.4-10.2) 04/10/17 14:40 Total Bilirubin 0.2 mg/dl (0.2-1.3) 04/10/17 14:40 AST 47 U/L (14-36) H D 04/10/17 14:40 ALT 35 U/L (9-52) 04/10/17 14:40 Alkaline Phosphatase 84 U/L (38-126) 04/10/17 14:40 Total Creatine Kinase 36 U/L (30-135) 04/10/17 14:40 Troponin I 0.0170 ng/mL (0.00-0.120) 04/11/17 07:25 Total Protein 7.1 G/DL (6.3-8.2) 04/10/17 14:40 Albumin 3.9 g/dL (3.5-5.0) 04/10/17 14:40 Globulin 3.2 gm/dL (2.2-3.9) 04/10/17 14:40 Albumin/Globulin Ratio 1.2 (1.0-2.1) 04/10/17 14:40 Triglycerides 66 mg/DL (0-149) D 04/11/17 05:35 Cholesterol 97 mg/dL (0-199) 04/11/17 05:35 LDL Cholesterol Direct 40 mg/dL (0-129) 04/11/17 05:35 HDL Cholesterol 38 MG/DL (30-70) 04/11/17 05:35 TSH 3rd Generation 15.80 mIU/ML (0.46-4.68) H 04/11/17 05:35 - Hospital Course Hospital Course: 86 year old female PMH CHF, CAD, HTN, AFib, hypothyroid, diabetes mellitus, presents with a one day history of mod severe sharp should pain radiating down arm, associated with chest pain and very mild dyspnea. This pain occurs both at rest and on movement, waxes and wanes. Patient initially experienced this pain yesterday when she feels she moved the wrong way, and the pain worsened today, which is what brought her to the ER. She has no other complaints at this time. Vitals are stable. No acute distress. No active chest pain. Troponins trended, neg. no EKG changes. No active chest pain. Patient stable to be d/c home [facility] follow up with PCP. Discussed with patient, patient expresses understanding, able to repeat directions back. Patient son did want evaluation for competency/dementia. Patient was given instructions and number to neurologist for evaluation if family wanted. On my examination, patient is awake, alert, able to tell me what medications she is taking and for what diagnosis. She did not require a psychiatric, neurologic, or psychology evaluation during this admission for acute chest pain. Chest Pain CHF CAD HTN Trend cardiac enzymes EKG shows NSR with old t wave inversions in lateral leads no active chest pain, repeat EKG if chest pain recurs continue ASA, Lipitor, Imdur, Cozaar, Norvasc Lipid panel tomorrow Afib Rate controlled continue Amiodarone DJD, shoulder Motrin for pain HYPOTHYROID continue Synthroid TSH in AM DIABETES MELLITUS ISS Accuchecks continue janumet equivalent VTE lovenox Discharge Exam - Head Exam Head Exam: ATRAUMATIC, NORMOCEPHALIC - Eye Exam Eye Exam: EOMI, Normal appearance, PERRL Pupil Exam: NORMAL ACCOMODATION - ENT Exam ENT Exam: Mucous Membranes Moist, Normal Oropharynx - Respiratory Exam Respiratory Exam: Clear to PA & Lateral, NORMAL BREATHING PATTERN - Cardiovascular Exam Cardiovascular Exam: RRR, +S1, +S2 - GI/Abdominal Exam GI & Abdominal Exam: Normal Bowel Sounds, Soft. absent: Mass, Organomegaly, Tenderness - Extremities Exam Extremities exam: normal capillary refill, pedal pulses present - Back Exam Back exam: absent: CVA tenderness (L), CVA tenderness (R) - Neurological Exam Neurological exam: Alert, Normal Gait, Oriented x3, Reflexes Normal - Psychiatric Exam Psychiatric exam: Normal Affect, Normal Mood - Skin Skin Exam: Dry, Normal Color, Warm Discharge Plan - Discharge Medications Prescriptions: amLODIPine [Norvasc] 5 mg PO DAILY #30 Aspirin [Ecotrin] 81 mg PO DAILY #30 Atorvastatin [Lipitor] 40 mg PO DAILY #30 Ferrous Sulfate [Feosol] 325 mg PO DAILY #30 Isosorbide Mononitrate [Imdur] 30 mg PO DAILY #30 Levothyroxine [Synthroid] 175 mcg PO DAILY #30 Losartan [Cozaar] 25 mg PO DAILY #30 Olopatadine HCl [Pazeo] 1 drop EACHEYE DAILY #1 Sitagliptin Phos/Metformin HCl [Janumet Xr 100-1,000 mg Tablet] 1 tab PO DAILY # 30 - Follow Up Plan Condition: GUARDED Disposition: HOME/ ROUTINE Instructions: Chest Pain (DC) Additional Instructions: Patient stable to be dc home. Follow up with PCP. Heart healthy diet. Resume activity as tolerated. Resume all home medications. Patient given information for neurologist if they wish to be evaluated. Return to ER if condition worsens.
== END 2017-04-11 12:58 | disposition home health service (06) ==
LOC: H.ER 13:53 → H.ERHOLD 16:23 → H.TEL 17:53
PROVIDERS: ADMIT Hospitalist; ATTEND Hospitalist
DX: R07.89 Other chest pain (principal); I48.91 Unspecified atrial fibrillation; M19.012 Primary osteoarthritis, left shoulder; E11.9 Type 2 diabetes mellitus without complications; E03.9 Hypothyroidism, unspecified; I25.10 Atherosclerotic heart disease of native coronary artery without angina pectoris; J45.909 Unspecified asthma, uncomplicated; I11.0 Hypertensive heart disease with heart failure; I50.9 Heart failure, unspecified; Z79.82 Long term (current) use of aspirin
CPT/HCPCS: 36415; 71020; 71275; 73030; 80053; 80061; 82550; 82948; 84443; 84484; 85025; 85610; 85730; 93005; 96372; 96374; 97161; 99282; G0378; G8978; G8979; G8980; J1650; J2270; Q9967

== ENCOUNTER 2017-06-10 19:36 | Observation (INO) | payer MEDICARE, MEDICAID ==
[2017-06-10 19:36] VITALS: BMI 32.3
[2017-06-10] MEDS ORDERED: Morphine 4 MG/ML VIAL ONE (20:51)
[2017-06-10 20:59] LABS: BASO # 0.1 K/uL (0.0-0.2); BASO % 0.9 % (0.0-2.0); EOS # 0.1 K/uL (0.0-0.7); EOS % 1.9 % (0.0-4.0); HEMOGLOBIN 8.6 g/dL (12.0-16.0); LYMPH # 2.6 K/uL (1.0-4.3); MEAN CELL VOLUME 83.9 fl (81.0-99.0); MEAN CORPUSCULAR HEMOGLOBIN 26.5 pg (27.0-31.0); MEAN CORPUSCULAR HGB CONC 31.6 g/dL (33.0-37.0); MEAN PLATELET VOLUME 9.7 fl (7.2-11.7); MONO # 0.7 K/uL (0.0-0.8); MONO % 8.8 % (0.0-10.0); NEUT % 53.4 % (50.0-75.0); RBC 3.24 Mil/uL (3.80-5.20); RED CELL DISTRIBUTION WIDTH 16.5 % (11.5-14.5); WHITE BLOOD COUNT 7.5 K/uL (4.8-10.8)
[2017-06-10 21:11] LABS: ALB/GLOB RATIO 1.2 (1.0-2.1); ALBUMIN 3.6 g/dL (3.5-5.0); ALT/SGPT 38 U/L (9-52); AST/SGOT 48 U/L (14-36); BLOOD UREA NITROGEN 14 mg/dl (7-17); CALCIUM 8.4 mg/dL (8.4-10.2); GFR AFRICAN-AMERICAN > 60; GFR NON-AFRICAN AMERICAN > 60
[2017-06-10] MEDS ORDERED: Morphine 4 MG/ML VIAL IV ONE (21:30)
--- NOTE | 2017-06-10 21:57 | ED PDOC ---
Lower Extremity Pain/Injury Time Seen by Provider: 06/10/17 19:45 Chief Complaint (Nursing): Lower Extremity Problem/Injury Chief Complaint (Provider): Leg Pain History Per: Patient History/Exam Limitations: no limitations Onset/Duration Of Symptoms: Days (x2) Additional Complaint(s): Katie Cook is a 86 year old female, with a past medical history of diabetes and hypertension, who presents to the emergency department via EMS complaining of chronic left leg pain radiating to her thigh onset for 2 days. Patient denies any trauma, fever, and nausea. No further medical complaints. PMD: Eliud Frias Past Medical History Reviewed: Historical Data, Nursing Documentation, Vital Signs Vital Signs: Last Vital Signs Temp 98.0 F 06/10/17 19:40 Pulse 67 06/10/17 19:40 Resp 18 06/10/17 19:40 BP 150/70 06/10/17 19:40 Pulse Ox 100 06/10/17 19:40 - Medical History PMH: Arthritis, Asthma, Atrial Fibrillation, Bronchitis, CAD (Questionable), CHF , COPD, Diabetes (type II), Diverticulitis, HTN, Hypercholesterolemia, Hyperthyroidism, Hypothyroidism, Pneumonia, Sleep Apnea Denies: HIV, Chronic Kidney Disease - Surgical History Surgical History: Back Surgery, Cholecystectomy Denies: CABG - Family History Family History: States: Unknown Family Hx, Hypertension - Immunization History Hx Tetanus Toxoid Vaccination: No Hx Influenza Vaccination: No Hx Pneumococcal Vaccination: No - Home Medications Home Medications: Ambulatory Orders Medication Instructions Recorded Omeprazole 20 mg PO DAILY 06/22/16 Albuterol 0.083% [Albuterol 0.083% 2.5 mg IH Q4H PRN #100 neb 11/15/16 Inhal [place] (2.5 mg/3 ml) UD] Amiodarone [Cordarone] 100 mg PO DAILY 01/28/17 Levocetirizine Dihydrochloride 5 mg PO DAILY 04/01/17 [Xyzal] traMADol [Ultram] 50 mg PO Q6H PRN 04/01/17 Aspirin [Ecotrin] 81 mg PO DAILY #30 04/11/17 Atorvastatin [Lipitor] 40 mg PO DAILY #30 04/11/17 Ferrous Sulfate [Feosol] 325 mg PO DAILY #30 04/11/17 Isosorbide Mononitrate [Imdur] 30 mg PO DAILY #30 04/11/17 Levothyroxine [Synthroid] 175 mcg PO DAILY #30 04/11/17 Losartan [Cozaar] 25 mg PO DAILY #30 04/11/17 Olopatadine HCl [Pazeo] 1 drop EACHEYE DAILY #1 04/11/17 Sitagliptin Phos/Metformin HCl 1 tab PO DAILY #30 04/11/17 [Janumet Xr 100-1,000 mg Tablet] amLODIPine [Norvasc] 5 mg PO DAILY #30 04/11/17 oxyCODONE/Acetaminophen [Percocet 1 tab PO Q6H PRN #5 tab 06/10/17 5/325 mg Tab] - Allergies Allergies/Adverse Reactions: Allergies Allergy/AdvReac Type Severity Reaction Status Date / Time No Known Allergies Allergy Verified 04/10/17 13:57 Review of Systems ROS Statement: Except As Marked, All Systems Reviewed And Found Negative Constitutional: Negative for: Fever Gastrointestinal: Negative for: Vomiting Musculoskeletal: Positive for: Leg Pain (chronic left leg pain radiating to her thigh). Negative for: Other (trauma) Physical Exam - Reviewed Nursing Documentation Reviewed: Yes Vital Signs Reviewed: Yes - Physical Exam Appears: Positive for: Well, Non-toxic. Negative for: No Acute Distress (mild distress) Head Exam: Positive for: ATRAUMATIC, NORMAL INSPECTION, NORMOCEPHALIC Skin: Positive for: Normal Color, Warm, Dry Eye Exam: Positive for: EOMI, Normal appearance, PERRL ENT: Positive for: Normal ENT Inspection Neck: Positive for: Normal, Painless ROM Cardiovascular/Chest: Positive for: Regular Rate, Rhythm Respiratory: Positive for: CNT, Normal Breath Sounds Gastrointestinal/Abdominal: Positive for: Normal Exam, Bowel Sounds, Soft Back: Positive for: Normal Inspection Extremity: Positive for: Tenderness (left leg, warm and normal color), Capillary Refill (<2 sec). Negative for: Swelling, Other (No cellulitis) Neurologic/Psych: Positive for: Alert, Oriented - Laboratory Results Result Diagrams: 06/10/17 20:51 06/10/17 20:51 - ECG O2 Sat by Pulse Oximetry: 100 (RA) Pulse Ox Interpretation: Normal Medical Decision Making Medical Decision Making: Initial Impression: Leg pain to rule out DVT no signs of arterial compromise in leg no signs of trauma, nor history of trauma Initial Plan: --EKG --Morphine IV 4mg --Duplex Lower Extrm Vein Left [US] --reevaluation FINDINGS: Deep veins: Normal color and spectral Doppler flow. Normal compressibility. No deep vein thrombosis from common femoral to popliteal vein. Superficial veins: No thrombosis. Soft tissues: No popliteal cyst. IMPRESSION: 1. No evidence of DVT within LEFT lower extremity. 2. Incidental/non-acute findings are described above. pt aware of anemia pt feels much better w morphine spoke to pt and son and answered questions Time: 22:45 Upon provider reevaluation patient is feeling better, is medically stable, and requires no further treatment in the ED at this time. Patient was prescribed with Percocet. Counseling was provided and all questions were answered regarding diagnosis and need for follow up. Scribe Attestation: Documented by Alvino Longo, acting as a scribe for Taiwo Brock MD. Provider Scribe Attestation: All medical record entries made by the Scribe were at my direction and personally dictated by me. I have reviewed the chart and agree that the record accurately reflects my personal performance of the history, physical exam, medical decision making, and the department course for this patient. I have also personally directed, reviewed, and agree with the discharge instructions and disposition. Disposition - Clinical Impression Clinical Impression: Neuropathic pain - Patient ED Disposition Is Patient to be Admitted: No Counseled Patient/Family Regarding: Studies Performed, Diagnosis, Need For Followup - Disposition Disposition Time: 21:00 Condition: IMPROVED
--- NOTE | 2017-06-10 21:58 | US ---
EXAM: US Duplex Left Lower Extremity Veins CLINICAL HISTORY: 86 years old, female; Pain; Leg, upper and leg, lower; Left; Additional info: Left leg pain TECHNIQUE: Real-time ultrasound scan of the veins of the left lower extremity with color Doppler flow, spectral waveform analysis and compression. COMPARISON: No relevant prior studies available. FINDINGS: Deep veins: Normal color and spectral Doppler flow. Normal compressibility. No deep vein thrombosis from common femoral to popliteal vein. Superficial veins: No thrombosis. Soft tissues: No popliteal cyst. IMPRESSION: 1. No evidence of DVT within LEFT lower extremity. 2. Incidental/non-acute findings are described above.
[2017-06-10 23:45] VITALS: BP 135/80; PULSE 75; RESP 16; TEMP 97.9
[2017-06-11 04:45] VITALS: O2SAT 100
--- NOTE | 2017-06-11 17:44 | CARD ---
APPROVED REPORT EKG Measurement Heart [id number] <Conclusion> Sinus rhythm with premature atrial complexes Incomplete right bundle branch block Left ventricular hypertrophy with repolarization abnormality Abnormal ECG
== END 2017-06-10 23:30 | disposition home or self-care (01) ==
LOC: H.ER 19:36 → H.EROBSV 20:44
PROVIDERS: ADMIT Emergency Medicine; ATTEND Emergency Medicine
DX: E11.42 Type 2 diabetes mellitus with diabetic polyneuropathy (principal); D64.9 Anemia, unspecified; I10 Essential (primary) hypertension; I25.10 Atherosclerotic heart disease of native coronary artery without angina pectoris; I48.91 Unspecified atrial fibrillation; J45.909 Unspecified asthma, uncomplicated; J40 Bronchitis, not specified as acute or chronic; M19.90 Unspecified osteoarthritis, unspecified site; Z79.82 Long term (current) use of aspirin; Z79.899 Other long term (current) drug therapy
CPT/HCPCS: 80053; 85025; 93005; 93971; 96374; 99283; G0378; J2270

== ENCOUNTER 2017-10-22 11:54 | Inpatient (IN) | payer MEDICARE, MEDICAID ==
[2017-10-22 11:54] VITALS: BMI 32.3
[2017-10-22 14:09] LABS: BLOOD UREA NITROGEN 11 mg/dl (7-17); CALCIUM 8.7 mg/dL (8.4-10.2); CARBON DIOXIDE 24 mmol/L (22-30); CHLORIDE 99 mmol/L (98-107); GFR AFRICAN-AMERICAN > 60; GLUCOSE,RANDOM 114 mg/dL (65-105); POTASSIUM 4.5 MMOL/L (3.6-5.0); SODIUM 135 mmol/l (132-148)
[2017-10-22 14:23] LABS: BASO # 0.1 K/uL (0.0-0.2); BASO % 0.8 % (0.0-2.0); EOS # 0.1 K/uL (0.0-0.7); EOS % 1.7 % (0.0-4.0); HEMATOCRIT 19.2 % (34.0-47.0); LYMPH # 1.8 K/uL (1.0-4.3); LYMPH % 21.9 % (20.0-40.0); MEAN CELL VOLUME 68.3 fl (81.0-99.0); MEAN CORPUSCULAR HEMOGLOBIN 20.6 pg (27.0-31.0); MEAN CORPUSCULAR HGB CONC 30.2 g/dL (33.0-37.0); MEAN PLATELET VOLUME 8.7 fl (7.2-11.7); MONO # 0.7 K/uL (0.0-0.8); MONO % 8.3 % (0.0-10.0); NEUT # 5.6 K/uL (1.8-7.0); NEUT % 67.3 % (50.0-75.0); NRBC % 0.2 % (0.0-0.0); RED CELL DISTRIBUTION WIDTH 19.6 % (11.5-14.5); WHITE BLOOD COUNT 8.3 K/uL (4.8-10.8)
--- NOTE | 2017-10-22 14:52 | ED PDOC ---
HPI: SOB/CHF/COPD Time Seen by Provider: 10/22/17 12:15 Chief Complaint (Nursing): Shortness Of Breath Chief Complaint (Provider): SOB History Per: Patient History/Exam Limitations: no limitations Onset/Duration Of Symptoms: Days, Persistent Current Symptoms Are (Timing): Still Present Additional Complaint(s): 87yo female with past medical history of diabetes, a-fib, hypothyroidsm, hypertnesion, obstructive sleep apnea, CHF, COPD, presents to ED for evaluation as she has been feeling short of breath for the past one month. SHe denies any fever or cough but states she has chest pain due to the shortness of breath. Patient states she presented today due to worsening shortness of breath. Patient accompanied by her family who report she had a syncopal episode earlier today while the patient was at home. No other medical complaints. Past Medical History Reviewed: Historical Data, Nursing Documentation, Vital Signs Vital Signs: Last Vital Signs Temp 97.9 F 10/23/17 11:48 Pulse 78 10/23/17 11:48 Resp 18 10/23/17 11:48 BP 115/63 10/23/17 11:48 Pulse Ox 95 10/23/17 11:48 - Medical History PMH: Arthritis, Asthma, Atrial Fibrillation, Bronchitis, CAD (Questionable), CHF , COPD, Diabetes (type II), Diverticulitis, HTN, Hypercholesterolemia, Hyperthyroidism, Hypothyroidism, Pneumonia, Sleep Apnea Denies: HIV, Chronic Kidney Disease - Surgical History Surgical History: Back Surgery, Cholecystectomy Denies: CABG - Family History Family History: States: Unknown Family Hx, Hypertension - Living Arrangements Living Arrangements: With Family - Immunization History Hx Tetanus Toxoid Vaccination: No Hx Influenza Vaccination: No Hx Pneumococcal Vaccination: No - Home Medications Home Medications: Ambulatory Orders Medication Instructions Recorded Omeprazole 20 mg PO DAILY 06/22/16 Amiodarone [Cordarone] 100 mg PO DAILY 01/28/17 Aspirin [Ecotrin] 81 mg PO DAILY #30 04/11/17 Isosorbide Mononitrate ER [Imdur 30 mg PO DAILY #30 04/11/17 ER] Levothyroxine [Synthroid] 175 mcg PO DAILY #30 04/11/17 Olopatadine HCl [Pazeo] 1 drop EACHEYE DAILY #1 04/11/17 Sitagliptin Phos/Metformin HCl 1 tab PO DAILY #30 04/11/17 [Janumet Xr 100-1,000 mg Tablet] Atorvastatin [Lipitor] 40 mg PO DAILY 10/22/17 Citalopram Hydrobromide [Celexa] 10 mg PO DAILY 10/22/17 Clopidogrel [Plavix] 75 mg PO DAILY 10/22/17 Fluticasone/Vilanterol [Breo 1 puff DAILY 10/22/17 Ellipta 200-25 Mcg INH] Losartan [Cozaar] 50 mg PO DAILY 10/22/17 Pregabalin [Lyrica] 50 mg PO HS 10/22/17 amLODIPine [Norvasc] 2.5 mg PO DAILY 10/22/17 oxyCODONE/Acetaminophen [Percocet 1 tab PO Q6H 10/22/17 5/325 mg Tab] - Allergies Allergies/Adverse Reactions: Allergies Allergy/AdvReac Type Severity Reaction Status Date / Time No Known Allergies Allergy Verified 10/22/17 12:46 Review of Systems ROS Statement: Except As Marked, All Systems Reviewed And Found Negative Constitutional: Negative for: Fever Cardiovascular: Positive for: Chest Pain Respiratory: Positive for: Shortness of Breath. Negative for: Cough Physical Exam - Reviewed Nursing Documentation Reviewed: Yes Vital Signs Reviewed: Yes - Physical Exam Appears: Positive for: Uncomfortable Head Exam: Positive for: ATRAUMATIC, NORMAL INSPECTION, NORMOCEPHALIC Skin: Positive for: Normal Color Eye Exam: Positive for: Normal appearance Neck: Positive for: Supple Cardiovascular/Chest: Positive for: Regular Rate, Rhythm Respiratory: Positive for: Normal Breath Sounds, Other (on O2 via nasal cannula) . Negative for: Respiratory Distress Gastrointestinal/Abdominal: Positive for: Soft. Negative for: Tenderness Back: Positive for: Normal Inspection Extremity: Positive for: Normal ROM. Negative for: Pedal Edema, Deformity Neurologic/Psych: Positive for: Alert, Oriented. Negative for: Motor/Sensory Deficits - Laboratory Results Result Diagrams: 10/23/17 08:30 10/23/17 02:15 - ECG O2 Sat by Pulse Oximetry: 100 (Nasal cannula) Pulse Ox Interpretation: Normal Medical Decision Making Medical Decision Making: Impression: Shortness of breath, r/o CHF, anemia, CAD, pneumonia Plan: -- Labs -- CXR -- Urinalysis Time: 1450 Labs reviewed and hemoglobin is 5.2; type and screen ordered. Patient to be admitted for anemia workup. pt consented for blood transfusion. son in room, answered all questions. also noted that bnp elevated, pt with sob, will order dose of lasix. 13:10 -Patient will go to transfuse for anemia. Called Dr. Jac Ramirez since pt is [place]. however he states goes to hospitalist as pt has [facility]. dr ishaan meyer saw pt in the ER and accepted to hospitalist service. Scribe Attestation: Documented by Yamileth Oshea, acting as a scribe for Taiwo Brock MD Provider Scribe Attestation: All medical record entries made by the Scribe were at my direction and personally dictated by me. I have reviewed the chart and agree that the record accurately reflects my personal performance of the history, physical exam, medical decision making, and the department course for this patient. I have also personally directed, reviewed, and agree with the discharge instructions and disposition. Disposition - Clinical Impression Clinical Impression: Chronic congestive heart failure, Anemia - Patient ED Disposition Is Patient to be Admitted: Yes - Disposition Disposition Time: 15:00 Condition: STABLE
[2017-10-22 15:56] LABS: RBC URINE 1 /hpf (0-3); URINE BILIRUBIN NEGATIVE (NEGATIVE); URINE BLOOD NEGATIVE (NEGATIVE); URINE COLOR YELLOW (YELLOW); URINE GLUCOSE (UA) NEG (Normal); URINE KETONE NEGATIVE (NEGATIVE); URINE LEUKOCYTE ESTERASE TRACE Leu/uL (Negative); URINE PROTEIN NEGATIVE (NEGATIVE); URINE UROBILINOGEN 0.2-1.0 mg/dL (0.2-1.0); WBC URINE 1 /hpf (0-5)
--- NOTE | 2017-10-22 16:03 | RAD ---
HISTORY: Shortness of breath. COMPARISON: 04/10/2017. FINDINGS: LUNGS: No active pulmonary disease. PLEURA: No significant pleural effusion identified, no pneumothorax apparent. CARDIOVASCULAR: No radiographic findings to suggest acute or significant cardiovascular disease. OSSEOUS STRUCTURES: No significant abnormalities. VISUALIZED UPPER ABDOMEN: Normal. OTHER FINDINGS: None. IMPRESSION: No active disease. No significant interval change compared to the prior examination(s).
--- NOTE | 2017-10-22 18:20 | CP.PCM.HP ---
History of Present Illness - History of Present Illness History of Present Illness: CC: shortness of breath 86 year old female PMH CAD, HTN, AFib, hypothyroid, diabetes mellitus, presents with a two month history of moderate increased and worsening dyspnea at rest and more so on exertion, normal echo in November. Found to be anemic H/H 5.8/19.2 , 2 UNITS PRBC being transfused. First troponin negative, no new EKG changes. CXR no active disease. No overt signs of failure, clear breath sounds. Dyspnea likely secondary to anemia. Anemia workup to follow. Denies hematuria, melena, hematochezia. HD stable, NAD. ROS: per HPI, 12 systems reviewed and negative by me PMD: DR. SHIN PMH: CHF CAD HTN hypothyroid diabetes mellitus PSH: denies FH: DM HTN SH: denies tobacco, ETOH, IVDU Meds: as below Allergies: NKDA FULL CODE Vitals Reviewed GEN: WDWN, ALERT, COOPERATIVE HEENT: NCAT, PERRL, EOMI HEART: RRR, +S1S2, NO MRG LUNG: CTAB, NO WRR ABD: SOFT, NT, ND, NO HSM, NO MASSES EXT: NORMAL PEDAL PULSES, GOOD CAPILLARY REFILL NEURO: AAOX3, STRENGTH EQUAL BILATERAL UPPER AND LOWER EXTREMITIES SKIN: WARM, DRY PSYCH: NORMAL MOOD, NORMAL AFFECT Most Recent Lab Values WBC 8.3 K/uL (4.8-10.8) 10/22/17 13:50 RBC 2.81 Mil/uL (3.80-5.20) L 10/22/17 13:50 Hgb 5.8 g/dL (12.0-16.0) L* D 10/22/17 13:50 Hct 19.2 % (34.0-47.0) L 10/22/17 13:50 MCV 68.3 fl (81.0-99.0) L D 10/22/17 13:50 MCH 20.6 pg (27.0-31.0) L 10/22/17 13:50 MCHC 30.2 g/dL (33.0-37.0) L 10/22/17 13:50 RDW 19.6 % (11.5-14.5) H 10/22/17 13:50 Plt Count 259 K/uL (130-400) 10/22/17 13:50 MPV 8.7 fl (7.2-11.7) 10/22/17 13:50 Neut % (Auto) 67.3 % (50.0-75.0) 10/22/17 13:50 Lymph % (Auto) 21.9 % (20.0-40.0) 10/22/17 13:50 [place] % (Auto) 8.3 % (0.0-10.0) 10/22/17 13:50 Eos % (Auto) 1.7 % (0.0-4.0) 10/22/17 13:50 Baso % (Auto) 0.8 % (0.0-2.0) 10/22/17 13:50 Neut # 5.6 K/uL (1.8-7.0) 10/22/17 13:50 Lymph # 1.8 K/uL (1.0-4.3) 10/22/17 13:50 [place] # 0.7 K/uL (0.0-0.8) 10/22/17 13:50 Eos # 0.1 K/uL (0.0-0.7) 10/22/17 13:50 Baso # 0.1 K/uL (0.0-0.2) 10/22/17 13:50 Sodium 135 mmol/l (132-148) 10/22/17 13:50 Potassium 4.5 MMOL/L (3.6-5.0) 10/22/17 13:50 Chloride 99 mmol/L (98-107) 10/22/17 13:50 Carbon Dioxide 24 mmol/L (22-30) 10/22/17 13:50 Anion Gap 17 (10-20) 10/22/17 13:50 BUN 11 mg/dl (7-17) 10/22/17 13:50 Creatinine 0.5 mg/dl (0.7-1.2) L 10/22/17 13:50 Est GFR ( Amer) > 60 10/22/17 13:50 Est GFR (Non-Af Amer) > 60 10/22/17 13:50 POC Glucose (mg/dL) 175 mg/dL (65-110) H 10/22/17 19:11 Random Glucose 114 mg/dL (65-105) H 10/22/17 13:50 Calcium 8.7 mg/dL (8.4-10.2) 10/22/17 13:50 Troponin I < 0.0120 ng/mL (0.00-0.120) 10/22/17 13:50 NT-Pro-B Natriuret Pep 1030 pg/ml (0-900) H 10/22/17 13:50 Urine Color Yellow (YELLOW) 10/22/17 15:35 Urine Clarity Clear (Clear) 10/22/17 15:35 Urine pH 7.0 (5.0-8.0) 10/22/17 15:35 Ur Specific [place] 1.011 (1.003-1.030) 10/22/17 15:35 Urine Protein Negative mg/dL (NEGATIVE) 10/22/17 15:35 Urine Glucose (UA) Neg mg/dL (Normal) 10/22/17 15:35 Urine Ketones Negative mg/dL (NEGATIVE) 10/22/17 15:35 Urine Blood Negative (NEGATIVE) 10/22/17 15:35 Urine Nitrate Negative (NEGATIVE) 10/22/17 15:35 Urine Bilirubin Negative (NEGATIVE) 10/22/17 15:35 Urine Urobilinogen 0.2-1.0 mg/dL (0.2-1.0) 10/22/17 15:35 Ur Leukocyte Esterase Trace Olvin/uL (Negative) 10/22/17 15:35 Urine RBC (Auto) 1 /hpf (0-3) 10/22/17 15:35 Urine Microscopic WBC 1 /hpf (0-5) 10/22/17 15:35 Ur Squamous Epith Cells < 1 /hpf (0-5) 10/22/17 15:35 Blood Type O NEGATIVE 10/22/17 15:35 Antibody Screen Positive 10/22/17 15:35 BBK History Checked Patient has bt 10/22/17 15:35 86 year old female PMH CAD, HTN, AFib, hypothyroid, diabetes mellitus, presents with a two month history of moderate increased and worsening dyspnea at rest and more so on exertion, normal echo in November. Found to be anemic H/H 5.8/19.2 , 2 UNITS PRBC being transfused. First troponin negative, no new EKG changes. CXR no active disease. No overt signs of failure, clear breath sounds. Dyspnea likely secondary to anemia. Anemia workup to follow. Denies hematuria, melena, hematochezia. HD stable, NAD. Dyspnea Microcytic Anemia unknown etiology Occult bleeding? Carcinoma? Anemia workup pending, TIBC, Ferritin, Iron, Retic count, haptoglobin, LDH 2 units PRBC being transfused, post transfusion CBC CAD HTN CHF? ECHO normal in November continue ASA, Plavix, Lipitor, Imdur, Cozaar, Norvasc Afib Rate controlled continue Amiodarone DJD, shoulder Motrin for pain HYPOTHYROID continue Synthroid TSH in AM DIABETES MELLITUS ISS Accuchecks continue janumet equivalent DEPRESSION Pregabalin [Lyrica] 50 mg PO HS Citalopram [CeleXA] 10 mg PO DAILY HOLD Lovenox VTE ppx 2/2 anemia unknown etiology FULL CODE Present on Admission - Present on Admission Any Indicators Present on Admission: No Past Patient History - Infectious Disease Hx of Infectious Diseases: None - Past Medical History & Family History Past Medical History?: Yes - Past Social History Smoking Status: Never Smoked - CARDIAC Hx Atrial Fibrillation: Yes Hx Congestive Heart Failure: Yes Hx Hypercholesterolemia: Yes Hx Hypertension: Yes - PULMONARY Hx Asthma: Yes Hx Bronchitis: Yes Hx Chronic Obstructive Pulmonary Disease (COPD): Yes Hx Pneumonia: Yes Hx Sleep Apnea: Yes - NEUROLOGICAL Hx Neurological Disorder: No - HEENT Hx HEENT Problems: No - RENAL Hx Chronic Kidney Disease: No - ENDOCRINE/METABOLIC Hx Hyperthyroidism: Yes Hx Hypothyroidism: Yes - HEMATOLOGICAL/ONCOLOGICAL Hx Human Immunodeficiency Virus (HIV): No - INTEGUMENTARY Hx Dermatological Problems: No - MUSCULOSKELETAL/RHEUMATOLOGICAL Hx Arthritis: Yes - GASTROINTESTINAL Hx Diverticulitis: Yes - GENITOURINARY/GYNECOLOGICAL Hx Genitourinary Disorders: No - PSYCHIATRIC Hx Psychophysiologic Disorder: No Hx Substance Use: No - SURGICAL HISTORY Hx Cholecystectomy: Yes Hx Coronary Artery Bypass Graft: No - ANESTHESIA Hx Anesthesia: Yes Hx Anesthesia Reactions: No Hx Malignant Hyperthermia: No Meds Allergies/Adverse Reactions: Allergies Allergy/AdvReac Type Severity Reaction Status Date / Time No Known Allergies Allergy Verified 10/22/17 12:46 Results - Vital Signs Recent Vital Signs: Last Vital Signs Temp 99 F 10/22/17 12:10 Pulse 77 10/22/17 12:10 Resp 18 10/22/17 16:14 BP 148/58 L 10/22/17 17:44 Pulse Ox 100 10/22/17 16:14 - Labs Result Diagrams: 10/23/17 08:30 10/23/17 02:15 Labs: Laboratory Results - last 24 hr 10/22/17 10/22/17 10/22/17 13:50 13:50 15:35 WBC 8.3 RBC 2.81 L Hgb 5.8 L* D Hct 19.2 L MCV 68.3 L D MCH 20.6 L MCHC 30.2 L RDW 19.6 H Plt Count 259 MPV 8.7 Neut % (Auto) 67.3 Lymph % (Auto) 21.9 [place] % (Auto) 8.3 Eos % (Auto) 1.7 Baso % (Auto) 0.8 Neut # 5.6 Lymph # 1.8 [place] # 0.7 Eos # 0.1 Baso # 0.1 Sodium 135 Potassium 4.5 Chloride 99 Carbon Dioxide 24 Anion Gap 17 BUN 11 Creatinine 0.5 L Est GFR ( Amer) > 60 Est GFR (Non-Af Amer) > 60 Random Glucose 114 H Calcium 8.7 Troponin I < 0.0120 NT-Pro-B Natriuret Pep 1030 H Urine Color Yellow Urine Clarity Clear Urine pH 7.0 Ur Specific [place] 1.011 Urine Protein Negative Urine Glucose (UA) Neg Urine Ketones Negative Urine Blood Negative Urine Nitrate Negative Urine Bilirubin Negative Urine Urobilinogen 0.2-1.0 Ur Leukocyte Esterase Trace Urine RBC (Auto) 1 Urine Microscopic WBC 1 Ur Squamous Epith Cells < 1 Blood Type Antibody Screen BBK History Checked 10/22/17 15:35 WBC RBC Hgb Hct MCV MCH MCHC RDW Plt Count MPV Neut % (Auto) Lymph % (Auto) [place] % (Auto) Eos % (Auto) Baso % (Auto) Neut # Lymph # [place] # Eos # Baso # Sodium Potassium Chloride Carbon Dioxide Anion Gap BUN Creatinine Est GFR ( Amer) Est GFR (Non-Af Amer) Random Glucose Calcium Troponin I NT-Pro-B Natriuret Pep Urine Color Urine Clarity Urine pH Ur Specific [place] Urine Protein Urine Glucose (UA) Urine Ketones Urine Blood Urine Nitrate Urine Bilirubin Urine Urobilinogen Ur Leukocyte Esterase Urine RBC (Auto) Urine Microscopic WBC Ur Squamous Epith Cells Blood Type O NEGATIVE Antibody Screen Positive BBK History Checked Patient has bt
[2017-10-22] MEDS: Insulin Lispro (humaLOG) 100 Units/ml Inj SC SCH (22:23)
[2017-10-23 02:38] LABS: BLOOD UREA NITROGEN 12 mg/dl (7-17); CALCIUM 8.3 mg/dL (8.4-10.2); CARBON DIOXIDE 27 mmol/L (22-30); CHLORIDE 100 mmol/L (98-107); GFR AFRICAN-AMERICAN > 60; GLUCOSE,RANDOM 158 mg/dL (65-105); POTASSIUM 4.2 MMOL/L (3.6-5.0); SODIUM 136 mmol/l (132-148)
[2017-10-23] MEDS: Levothyroxine 175 MCG TAB PO SCH (05:36)
[2017-10-23] MEDS: Fluticasone-Salmeterol 250-50mcg Diskus IH SCH ×2 (05:36→08:32)
[2017-10-23] MEDS: Insulin Lispro (humaLOG) 100 Units/ml Inj SC SCH ×4 (06:55→23:09)
[2017-10-23] MEDS: Pantoprazole 20 mg EC Tab PO SCH (08:34)
[2017-10-23 08:55] LABS: HEMATOCRIT 23.5 % (34.0-47.0); MEAN CELL VOLUME 70.9 fl (81.0-99.0); MEAN CORPUSCULAR HEMOGLOBIN 22.4 pg (27.0-31.0); MEAN CORPUSCULAR HGB CONC 31.6 g/dL (33.0-37.0); WHITE BLOOD COUNT 8.5 K/uL (4.8-10.8)
[2017-10-23] MEDS ORDERED: Patient's Own Med (Sitagliptin Phos/Metformin Hcl [Janumet Xr 100-1,000 Mg Tablet] 1 TAB) PO SCH (09:00)
[2017-10-23] MEDS ORDERED: Enoxaparin 40 mg Syringe SC SCH (09:00)
[2017-10-23 09:06] LABS: IRON 94 ug/dL (37-170)
--- NOTE | 2017-10-23 09:29 | CP.PCM.PN ---
<Maurice Ibrahim - Last Filed: 10/23/17 18:05> Subjective - Date & Time of Evaluation Date of Evaluation: 10/23/17 Time of Evaluation: 09:24 - Subjective Subjective: 86 year old female PMH CAD, HTN, AFib, hypothyroid, diabetes mellitus, seen at bedside for one month history of increased dyspnea, normal echo in November. Patient states that she is experiencing less shortness of breath today and feels better overall. Denies hematuria, melena, hematochezia. HD stable, NAD, AAO x 3. Objective - Vital Signs/Intake and Output Vital Signs (last 24 hours): Temp Pulse Resp BP Pulse Ox 97.9 F 72 18 169/72 H 96 10/23/17 08:30 10/23/17 08:34 10/23/17 07:58 10/23/17 08:34 10/23/17 07:58 - Medications Medications: Current Medications Acetaminophen (Tylenol 325mg Tab) 650 mg PO Q6 PRN PRN Reason: Fever >100.4 F Acetaminophen (Tylenol 325mg Tab) 650 mg PO Q6 PRN PRN Reason: Other Last Admin: 10/23/17 08:30 Dose: 650 mg Al Hydrox/Mg Hydrox/Simethicone (Maalox Plus 30 Ml) 30 ml PO Q6 PRN PRN Reason: Indigestion / Heartburn Amiodarone HCl (Cordarone) 100 mg PO DAILY [facility] Last Admin: 10/23/17 08:33 Dose: 100 mg Amlodipine Besylate (Norvasc) 2.5 mg PO DAILY [facility] Last Admin: 10/23/17 08:34 Dose: 2.5 mg Aspirin (Ecotrin) 81 mg PO DAILY [facility] Atorvastatin Calcium (Lipitor) 40 mg PO DAILY [facility] Last Admin: 10/23/17 08:34 Dose: 40 mg Citalopram Hydrobromide (Celexa) 10 mg PO DAILY [facility] Last Admin: 10/23/17 08:32 Dose: 10 mg Clopidogrel Bisulfate (Plavix) 75 mg PO DAILY [facility] Home Med (Sitagliptin Phos/Metformin Hcl [Janumet Xr 100-1,000 Mg Tablet]) 1 tab PO DAILY [facility] Insulin Human Lispro (Humalog) 0 units SC ACHS [facility] PRN Reason: Protocol Last Admin: 10/23/17 06:55 Dose: Not Given Isosorbide Mononitrate (Imdur Er) 30 mg PO DAILY [facility] Last Admin: 10/23/17 08:34 Dose: 30 mg Levothyroxine Sodium (Synthroid) 175 mcg PO DAILY@0630 [facility] Last Admin: 10/23/17 05:36 Dose: 175 mcg Losartan Potassium (Cozaar) 50 mg PO DAILY [facility] Last Admin: 10/23/17 08:33 Dose: 50 mg Olopatadine HCl (Patanol 0.1% Opht Soln) 1 drop OU DAILY [facility] Ondansetron HCl (Zofran Inj) 4 mg IVP Q6 PRN PRN Reason: Nausea/Vomiting Last Admin: 10/23/17 08:37 Dose: 4 mg Pantoprazole Sodium (Protonix Ec Tab) 20 mg PO DAILY [facility] Last Admin: 10/23/17 08:34 Dose: 20 mg Pregabalin (Lyrica) 50 mg PO HS [facility] Last Admin: 10/22/17 21:50 Dose: 50 mg Fluticasone/Salmeterol (Advair Diskus 250/50) 1 puff IH Q12 [facility] Last Admin: 10/23/17 08:32 Dose: 1 puff - Labs Labs: 10/23/17 08:30 10/23/17 02:15 - Constitutional Appears: Well, Non-toxic, No Acute Distress - Head Exam Head Exam: ATRAUMATIC, NORMOCEPHALIC - Eye Exam Eye Exam: EOMI, PERRL Pupil Exam: PERRL - ENT Exam ENT Exam: Mucous Membranes Moist - Neck Exam Neck Exam: Normal Inspection. absent: Tenderness - Respiratory Exam Respiratory Exam: Clear to Ausculation Bilateral - Cardiovascular Exam Cardiovascular Exam: REGULAR RHYTHM - GI/Abdominal Exam GI & Abdominal Exam: Soft. absent: Guarding, Rigid - Rectal Exam Rectal Exam: Deferred - Extremities Exam Extremities Exam: Normal Inspection - Neurological Exam Neurological Exam: Alert, Awake, Oriented x3 - Psychiatric Exam Psychiatric exam: Normal Affect, Normal Mood - Skin Skin Exam: Intact, Normal Color, Warm Assessment and Plan - Assessment and Plan (Free Text) Assessment: 86 year old female PMH CAD, HTN, AFib, hypothyroid, diabetes mellitus, seen at bedside for one month history of increased dyspnea, normal echo in November. Patient was found to be anemic on admission with H/H 5.8/19.2. 2 UNITS PRBC were transfused last night, 10/22/17. Plan: 1. Anemia unknown etiology - Anemia workup pending - 2 units PRBC transfused yesterday - Post transfusion H/H improved but still low; Hgb: 7.4 Hct: 23.5 - Additional 1 unit of PRBC transfused today - Feosol 325 mg PO BID - Continue HOLD Lovenox VTE ppx - Advair Diskus q12 for dyspnea - CXR: No acute disease. No significant interval change compared to the prior examinations - F/u Urinalysis, stool samples - Repeat CBC for 20:30 tonight, f/u H/H 2. HTN - BP 169/72 - Continue ASA, Plavix, Lipitor, Imdur, Cozaar, Norvasc 3. Afib - Rate controlled - Continue Amiodarone 4. DJD, shoulder - Continue Tylenol prn for pain 5 HYPOTHYROID - Continue Synthroid - F/u TSH 6. DIABETES MELLITUS - Glucose 158 - ISS - Accuchecks - Continue janumet equivalent 7. DEPRESSION - Pregabalin [Lyrica] 50 mg PO HS - Citalopram [CeleXA] 10 mg PO DAILY 8. DVT Prophylaxis - Continue ASA - SCDs <Yane Bond - Last Filed: 10/24/17 15:34> Objective - Vital Signs/Intake and Output Vital Signs (last 24 hours): Temp Pulse Resp BP Pulse Ox 99.5 F 77 20 144/65 93 L 10/24/17 13:00 10/24/17 13:00 10/24/17 13:00 10/24/17 13:00 10/24/17 13:00 - Medications Medications: Current Medications Acetaminophen (Tylenol 325mg Tab) 650 mg PO Q6 PRN PRN Reason: Fever >100.4 F Acetaminophen (Tylenol 325mg Tab) 650 mg PO Q6 PRN PRN Reason: Other Last Admin: 10/23/17 08:30 Dose: 650 mg Al Hydrox/Mg Hydrox/Simethicone (Maalox Plus 30 Ml) 30 ml PO Q6 PRN PRN Reason: Indigestion / Heartburn Last Admin: 10/23/17 23:18 Dose: 30 ml Amiodarone HCl (Cordarone) 100 mg PO DAILY [facility] Last Admin: 10/24/17 12:58 Dose: 100 mg Amlodipine Besylate (Norvasc) 2.5 mg PO DAILY [facility] Last Admin: 10/24/17 08:37 Dose: 2.5 mg Aspirin (Ecotrin) 81 mg PO DAILY [facility] Atorvastatin Calcium (Lipitor) 40 mg PO DAILY [facility] Last Admin: 10/24/17 08:37 Dose: 40 mg Citalopram Hydrobromide (Celexa) 10 mg PO DAILY [facility] Last Admin: 10/24/17 08:36 Dose: 10 mg Clopidogrel Bisulfate (Plavix) 75 mg PO DAILY [facility] Ferrous Sulfate (Feosol) 325 mg PO BID [facility] Last Admin: 10/24/17 08:37 Dose: 325 mg Ciprofloxacin (Cipro 400mg/200ml Dsw) 400 mg in 200 mls @ 200 mls/hr IVPB Q12 [facility] PRN Reason: Protocol Potassium Chloride/Dextrose/Sod Cl (Potassium Chl 20 Meq In D5-1/2ns) 1,000 mls @ 125 mls/hr IV .Q8H [facility] Stop: 10/25/17 14:04 Metronidazole (Flagyl 500mg/100ml Ns) 100 mls @ 100 mls/hr IVPB Q8 [facility] PRN Reason: Protocol Insulin Human Lispro (Humalog) 0 units SC ACHS [facility] PRN Reason: Protocol Last Admin: 10/24/17 12:57 Dose: Not Given Isosorbide Mononitrate (Imdur Er) 30 mg PO DAILY [facility] Last Admin: 10/24/17 08:36 Dose: 30 mg Ketorolac Tromethamine (Toradol) 15 mg IVP Q6 PRN PRN Reason: Pain, moderate (4-7) Ketorolac Tromethamine (Toradol) 30 mg IVP Q6 PRN PRN Reason: Pain, severe (8-10) Levothyroxine Sodium (Synthroid) 175 mcg PO DAILY@0630 [facility] Last Admin: 10/24/17 06:45 Dose: 175 mcg Losartan Potassium (Cozaar) 50 mg PO DAILY [facility] Last Admin: 10/24/17 08:38 Dose: 50 mg Metformin HCl (Glucophage) 1,000 mg PO BID [facility] Last Admin: 10/24/17 08:37 Dose: 1,000 mg Olopatadine HCl (Patanol 0.1% Opht Soln) 1 drop OU DAILY [facility] Ondansetron HCl (Zofran Inj) 4 mg IVP Q6 PRN PRN Reason: Nausea/Vomiting Last Admin: 10/23/17 08:37 Dose: 4 mg Pantoprazole Sodium (Protonix Ec Tab) 20 mg PO DAILY [facility] Last Admin: 10/24/17 08:37 Dose: 20 mg Pregabalin (Lyrica) 50 mg PO HS [facility] Last Admin: 10/23/17 23:10 Dose: 50 mg Fluticasone/Salmeterol (Advair Diskus 250/50) 1 puff INH BID [facility] Last Admin: 10/24/17 08:36 Dose: 1 puff Sitagliptin Phosphate (Januvia) 100 mg PO DAILY [facility] Last Admin: 10/24/17 08:36 Dose: 100 mg - Labs Labs: 10/24/17 04:45 10/24/17 04:45 Attending/Attestation - Attestation I have personally seen and examined this patient.: Yes I have fully participated in the care of the patient.: Yes I have reviewed all pertinent clinical information, including history, physical exam and plan: Yes Notes (Text): SEEN EXAMINED DISCUSSED [facility] RESIDENT DR MAURICE IBRAHIM. AGREE WITH FINDINGS AND PLAN ABOVE.
[2017-10-23] MEDS: Fluticasone-Salmeterol 250-50mcg Diskus INH SCH ×2 (10:20→18:25)
[2017-10-23] MEDS: Alum-Mag Hydrox-Simethicone Susp (30 mL) PO PRN ×2 (10:22→23:18)
[2017-10-23 20:58] LABS: BASO # 0.1 K/uL (0.0-0.2); BASO % 0.9 % (0.0-2.0); EOS # 0.1 K/uL (0.0-0.7); EOS % 1.2 % (0.0-4.0); HEMATOCRIT 17.9 % (34.0-47.0); LYMPH # 1.5 K/uL (1.0-4.3); LYMPH % 17.6 % (20.0-40.0); MEAN CELL VOLUME 74.1 fl (81.0-99.0); MEAN CORPUSCULAR HEMOGLOBIN 28.6 pg (27.0-31.0); MEAN CORPUSCULAR HGB CONC 38.6 g/dL (33.0-37.0); MEAN PLATELET VOLUME 8.6 fl (7.2-11.7); MONO # 0.7 K/uL (0.0-0.8); MONO % 8.4 % (0.0-10.0); NEUT # 6.2 K/uL (1.8-7.0); NEUT % 71.9 % (50.0-75.0); NRBC % 1.8 % (0.0-0.0); RED CELL DISTRIBUTION WIDTH 20.6 % (11.5-14.5); WHITE BLOOD COUNT 8.6 K/uL (4.8-10.8)
[2017-10-24 05:34] LABS: BASO # 0.1 K/uL (0.0-0.2); BASO % 0.5 % (0.0-2.0); EOS # 0.2 K/uL (0.0-0.7); EOS % 1.8 % (0.0-4.0); HEMATOCRIT 24.8 % (34.0-47.0); LYMPH # 2.3 K/uL (1.0-4.3); LYMPH % 22.7 % (20.0-40.0); MEAN CELL VOLUME 74.3 fl (81.0-99.0); MEAN CORPUSCULAR HEMOGLOBIN 22.9 pg (27.0-31.0); MEAN CORPUSCULAR HGB CONC 30.9 g/dL (33.0-37.0); MEAN PLATELET VOLUME 8.5 fl (7.2-11.7); MONO # 0.9 K/uL (0.0-0.8); NEUT # 6.7 K/uL (1.8-7.0); NRBC % 0.5 % (0.0-0.0); RED CELL DISTRIBUTION WIDTH 21.2 % (11.5-14.5); WHITE BLOOD COUNT 10.2 K/uL (4.8-10.8)
[2017-10-24 06:26] LABS: BLOOD UREA NITROGEN 13 mg/dl (7-17); CARBON DIOXIDE 25 mmol/L (22-30); CHLORIDE 98 mmol/L (98-107); GFR AFRICAN-AMERICAN > 60; GLUCOSE,RANDOM 109 mg/dL (65-105); POTASSIUM 4.3 MMOL/L (3.6-5.0); SODIUM 133 mmol/l (132-148)
[2017-10-24] MEDS: Levothyroxine 175 MCG TAB PO SCH (06:45)
[2017-10-24] MEDS: Fluticasone-Salmeterol 250-50mcg Diskus INH SCH ×2 (08:36→16:14)
[2017-10-24] MEDS: Pantoprazole 20 mg EC Tab PO SCH (08:37)
--- NOTE | 2017-10-24 09:21 | CP.PCM.PN ---
<Junito Ibrahim - Last Filed: 10/24/17 17:34> Subjective - Date & Time of Evaluation Date of Evaluation: 10/24/17 Time of Evaluation: 09:19 - Subjective Subjective: 87 year old female PMH CAD, HTN, AFib, hypothyroid, diabetes mellitus, seen at bedside for one month history of increased dyspnea with normal echo in November, diverticulitis and diverticulosis. Patient states that she has been having increasing pain in her stomach since yesterday afternoon. Denies hematuria, melena, hematochezia. HD stable, AAO x 3. Objective - Vital Signs/Intake and Output Vital Signs (last 24 hours): Temp Pulse Resp BP Pulse Ox 99.7 F H 79 20 151/61 H 90 L 10/24/17 08:00 10/24/17 08:38 10/24/17 08:00 10/24/17 08:38 10/24/17 08:00 - Medications Medications: Current Medications Acetaminophen (Tylenol 325mg Tab) 650 mg PO Q6 PRN PRN Reason: Fever >100.4 F Acetaminophen (Tylenol 325mg Tab) 650 mg PO Q6 PRN PRN Reason: Other Last Admin: 10/23/17 08:30 Dose: 650 mg Al Hydrox/Mg Hydrox/Simethicone (Maalox Plus 30 Ml) 30 ml PO Q6 PRN PRN Reason: Indigestion / Heartburn Last Admin: 10/23/17 23:18 Dose: 30 ml Amiodarone HCl (Cordarone) 100 mg PO DAILY [facility] Last Admin: 10/23/17 08:33 Dose: 100 mg Amlodipine Besylate (Norvasc) 2.5 mg PO DAILY [facility] Last Admin: 10/24/17 08:37 Dose: 2.5 mg Aspirin (Ecotrin) 81 mg PO DAILY [facility] Atorvastatin Calcium (Lipitor) 40 mg PO DAILY [facility] Last Admin: 10/24/17 08:37 Dose: 40 mg Citalopram Hydrobromide (Celexa) 10 mg PO DAILY [facility] Last Admin: 10/24/17 08:36 Dose: 10 mg Clopidogrel Bisulfate (Plavix) 75 mg PO DAILY [facility] Ferrous Sulfate (Feosol) 325 mg PO BID [facility] Last Admin: 10/24/17 08:37 Dose: 325 mg Insulin Human Lispro (Humalog) 0 units SC ACHS [facility] PRN Reason: Protocol Last Admin: 10/23/17 23:09 Dose: Not Given Isosorbide Mononitrate (Imdur Er) 30 mg PO DAILY [facility] Last Admin: 10/24/17 08:36 Dose: 30 mg Levothyroxine Sodium (Synthroid) 175 mcg PO DAILY@0630 [facility] Last Admin: 10/24/17 06:45 Dose: 175 mcg Losartan Potassium (Cozaar) 50 mg PO DAILY [facility] Last Admin: 10/24/17 08:38 Dose: 50 mg Metformin HCl (Glucophage) 1,000 mg PO BID [facility] Last Admin: 10/24/17 08:37 Dose: 1,000 mg Olopatadine HCl (Patanol 0.1% Opht Soln) 1 drop OU DAILY [facility] Ondansetron HCl (Zofran Inj) 4 mg IVP Q6 PRN PRN Reason: Nausea/Vomiting Last Admin: 10/23/17 08:37 Dose: 4 mg Pantoprazole Sodium (Protonix Ec Tab) 20 mg PO DAILY [facility] Last Admin: 10/24/17 08:37 Dose: 20 mg Pregabalin (Lyrica) 50 mg PO HS [facility] Last Admin: 10/23/17 23:10 Dose: 50 mg Fluticasone/Salmeterol (Advair Diskus 250/50) 1 puff INH BID [facility] Last Admin: 10/24/17 08:36 Dose: 1 puff Sitagliptin Phosphate (Januvia) 100 mg PO DAILY [facility] Last Admin: 10/24/17 08:36 Dose: 100 mg - Labs Labs: 10/24/17 04:45 10/24/17 04:45 - Constitutional Appears: Well, Non-toxic - Head Exam Head Exam: ATRAUMATIC, NORMOCEPHALIC - Eye Exam Eye Exam: EOMI, PERRL Pupil Exam: PERRL - ENT Exam ENT Exam: Mucous Membranes Moist - Neck Exam Neck Exam: Normal Inspection. absent: Tenderness - GI/Abdominal Exam GI & Abdominal Exam: Guarding, Tenderness - Rectal Exam Rectal Exam: Deferred - Extremities Exam Extremities Exam: Normal Inspection - Neurological Exam Neurological Exam: Alert, Awake, Oriented x3 - Psychiatric Exam Psychiatric exam: Normal Affect, Normal Mood - Skin Skin Exam: Intact, Normal Color, Warm Assessment and Plan - Assessment and Plan (Free Text) Assessment: 86 year old female PMH CAD, HTN, AFib, hypothyroid, diabetes mellitus, seen at bedside for one month history of increased dyspnea, normal echo in November. Patient was found to be anemic on admission with H/H 5.8/19.2. 2 UNITS PRBC were transfused 10/22/17 with a third unit transfused 10/23/17. H/H still not normalizing, Need to r/o internal bleed. Patient for CT abdomen today 10/24/17. GI consulted and 2 mg morphine given for increased stomach pain. CT abdomen shows descending colon diverticulosis and sigmoid colon diverticulitis. Plan: 1. Anemia - Most likely due to bleed from diverticulitis - 3 units of PRBC total transfused since admission. - Post transfusion H/H 7.7/24.8 - F/u CBC - Hold Plavix and ASA - Feosol 325 mg PO BID - Advair Diskus q12 for dyspnea - CXR: No acute disease. No significant interval change compared to the prior examinations - Vitals qshift 2. Diverticulitis - Abdomen/pelvis CT: Severe diverticulosis affecting descending colon and sigmoid. Mild acute sigmoid diverticulitis - Cipro 400mg IV q12 - Flagyl 500 IV q8 - Dilaudid 0.25 IV q6 prn pain - Fluids: D5w 1/2NS 20K+ at 125/hr - NPO 3. HTN - BP 131/54 - Continue Lipitor, Imdur, Cozaar, Norvasc 4. Afib - Rate controlled - Continue Amiodarone 5. DJD, shoulder - Continue Tylenol prn for pain 6 HYPOTHYROID - TSH 8.87 - Continue Synthroid 7. DIABETES MELLITUS - Glucose 172 - Humalog - Metformin - Januvia - ISS - Accuchecks 8. DEPRESSION - Citalopram [CeleXA] 10 mg PO DAILY - Pregabalin [Lyrica] 50 mg PO HS 9. DVT Prophylaxis - Hold ASA - SCDs <Yane Bond - Last Filed: 10/25/17 15:15> Objective - Vital Signs/Intake and Output Vital Signs (last 24 hours): Temp Pulse Resp BP Pulse Ox 99.3 F 73 20 153/67 H 85 L 10/25/17 12:41 10/25/17 12:41 10/25/17 12:41 10/25/17 12:41 10/25/17 12:41 - Medications Medications: Current Medications Acetaminophen (Tylenol 325mg Tab) 650 mg PO Q6 PRN PRN Reason: Fever >100.4 F Last Admin: 10/24/17 23:43 Dose: 650 mg Acetaminophen (Tylenol 325mg Tab) 650 mg PO Q6 PRN PRN Reason: Other Last Admin: 10/23/17 08:30 Dose: 650 mg Al Hydrox/Mg Hydrox/Simethicone (Maalox Plus 30 Ml) 30 ml PO Q6 PRN PRN Reason: Indigestion / Heartburn Last Admin: 10/23/17 23:18 Dose: 30 ml Amiodarone HCl (Cordarone) 100 mg PO DAILY [facility] Last Admin: 10/25/17 11:37 Dose: 100 mg Amlodipine Besylate (Norvasc) 2.5 mg PO DAILY [facility] Last Admin: 10/25/17 08:57 Dose: 2.5 mg Aspirin (Ecotrin) 81 mg PO DAILY [facility] Atorvastatin Calcium (Lipitor) 40 mg PO DAILY [facility] Last Admin: 10/25/17 08:58 Dose: 40 mg Citalopram Hydrobromide (Celexa) 10 mg PO DAILY [facility] Last Admin: 10/25/17 08:58 Dose: 10 mg Clopidogrel Bisulfate (Plavix) 75 mg PO DAILY [facility] Ferrous Sulfate (Feosol) 325 mg PO BID [facility] Last Admin: 10/25/17 08:57 Dose: 325 mg Hydromorphone HCl (Dilaudid) 0.25 mg IVP Q6 PRN PRN Reason: Pain, severe (8-10) Ciprofloxacin (Cipro 400mg/200ml Dsw) 400 mg in 200 mls @ 200 mls/hr IVPB Q12 [facility] PRN Reason: Protocol Last Admin: 10/25/17 08:56 Dose: 200 mls/hr Metronidazole (Flagyl 500mg/100ml Ns) 100 mls @ 100 mls/hr IVPB Q8 [facility] PRN Reason: Protocol Last Admin: 10/25/17 08:56 Dose: 100 mls/hr Dextrose/Sodium Chloride (Dextrose 5%/0.9% Ns 1000 Ml) 1,000 mls @ 125 mls/hr IV .Q8H [facility] Stop: 10/26/17 07:08 Last Admin: 10/25/17 09:01 Dose: 125 mls/hr Insulin Human Lispro (Humalog) 0 units SC ACHS [facility] PRN Reason: Protocol Last Admin: 10/25/17 11:50 Dose: 1 unit Isosorbide Mononitrate (Imdur Er) 30 mg PO DAILY [facility] Last Admin: 10/25/17 08:58 Dose: 30 mg Levothyroxine Sodium (Synthroid) 175 mcg PO DAILY@0630 [facility] Last Admin: 10/25/17 06:50 Dose: 175 mcg Losartan Potassium (Cozaar) 50 mg PO DAILY [facility] Last Admin: 10/25/17 08:59 Dose: 50 mg Metformin HCl (Glucophage) 1,000 mg PO BID [facility] Last Admin: 10/25/17 08:58 Dose: 1,000 mg Olopatadine HCl (Patanol 0.1% Opht Soln) 1 drop OU DAILY [facility] Last Admin: 10/24/17 16:14 Dose: Not Given Ondansetron HCl (Zofran Inj) 4 mg IVP Q6 PRN PRN Reason: Nausea/Vomiting Last Admin: 10/25/17 13:10 Dose: 4 mg Pantoprazole Sodium (Protonix Ec Tab) 20 mg PO DAILY [facility] Last Admin: 10/25/17 08:58 Dose: 20 mg Pregabalin (Lyrica) 50 mg PO HS [facility] Last Admin: 10/24/17 22:21 Dose: 50 mg Fluticasone/Salmeterol (Advair Diskus 250/50) 1 puff INH BID [facility] Last Admin: 10/25/17 08:51 Dose: 1 puff Sitagliptin Phosphate (Januvia) 100 mg PO DAILY [facility] Last Admin: 10/25/17 08:57 Dose: 100 mg - Labs Labs: 10/25/17 05:45 10/24/17 21:05 Attending/Attestation - Attestation I have personally seen and examined this patient.: Yes I have fully participated in the care of the patient.: Yes I have reviewed all pertinent clinical information, including history, physical exam and plan: Yes Notes (Text): 10/25/17 15:15 agree with findings and plan asabove.
[2017-10-24] MEDS: Insulin Lispro (humaLOG) 100 Units/ml Inj SC SCH ×4 (11:38→22:21)
[2017-10-24 12:46] LABS: FT3 1.93 pg/mL (2.77-5.27)
--- NOTE | 2017-10-24 13:11 | CT ---
PROCEDURE: CT Abdomen and Pelvis without intravenous contrast HISTORY: Abdominal pain COMPARISON: 04/01/2017 TECHNIQUE: Technique. Contrast Dose: 95 cc Omnipaque 300 Radiation dose: Total exam DLP = 1007.26 mGy-cm. This CT exam was performed using one or more of the following dose reduction techniques: Automated exposure control, adjustment of the mA and/or kV according to patient size, and/or use of iterative reconstruction technique. FINDINGS: LOWER THORAX: Unremarkable. LIVER: Unremarkable. No gross lesion or ductal dilatation. GALLBLADDER AND BILE DUCTS: Status post cholecystectomy. No abnormality is seen in the gallbladder fossa. All PANCREAS: Unremarkable. No gross lesion or ductal dilatation. SPLEEN: Unremarkable. ADRENALS: Unremarkable. No mass. KIDNEYS AND URETERS: Unremarkable. No hydronephrosis. No solid mass. Incidental finding(s): Simple left renal cysts. VASCULATURE: Unremarkable. No aortic aneurysm. BOWEL: Unremarkable. No obstruction. No gross mural thickening. Diverticulosis. Severe diverticular disease in the sigmoid colon and adjacent descending colon. Infiltration of the very sigmoidal fat indicates a component of acute diverticulitis. The overall distribution and degree is similar to that seen previously. No evidence of drainable collection APPENDIX: No abnormalities to suggest acute appendicitis. No right lower quadrant inflammatory processes identified. PERITONEUM: Unremarkable. No free fluid. No free air. LYMPH NODES: Unremarkable. No enlarged lymph nodes. BLADDER: Unremarkable. REPRODUCTIVE: Unremarkable. BONES: No acute fracture. OTHER FINDINGS: None. IMPRESSION: Severe diverticulosis primarily affecting descending colon and sigmoid. Mild acute sigmoid diverticulitis.
[2017-10-24] MEDS: metroNIDAZOLE 500mg/100ml NS 100 ML IVPB SCH (16:13)
[2017-10-24] MEDS: Potassium Ch 20mEq in D5-1/2NS 1,000 ML IV SCH ×2 (16:13→22:00)
[2017-10-24] MEDS: Olopatadine 0.1% Opht SOLN OU SCH (16:14)
[2017-10-24 21:13] LABS: HEMATOCRIT 24.1 % (34.0-47.0); MEAN CELL VOLUME 75.4 fl (81.0-99.0); MEAN CORPUSCULAR HEMOGLOBIN 22.4 pg (27.0-31.0); MEAN CORPUSCULAR HGB CONC 29.8 g/dL (33.0-37.0); RED CELL DISTRIBUTION WIDTH 21.2 % (11.5-14.5)
[2017-10-24 21:55] LABS: BLOOD UREA NITROGEN 17 mg/dl (7-17); CALCIUM 7.8 mg/dL (8.4-10.2); CARBON DIOXIDE 26 mmol/L (22-30); CHLORIDE 97 mmol/L (98-107); GFR AFRICAN-AMERICAN > 60; GLUCOSE,RANDOM 171 mg/dL (65-105); MAGNESIUM 2.2 MG/DL (1.6-2.3); PHOSPHOROUS 3.9 mg/dl (2.5-4.5); POTASSIUM 4.6 MMOL/L (3.6-5.0); SODIUM 130 mmol/l (132-148)
[2017-10-24] MEDS: Ciprofloxacin 400mg/200ml D5W 400 MG/200 ML BAG IVPB SCH (22:20)
[2017-10-24] MEDS ORDERED: Chlorhexidine Gluconate 1 APPL/PKT TP ONE (23:13)
[2017-10-25] MEDS: metroNIDAZOLE 500mg/100ml NS 100 ML IVPB SCH ×3 (01:37→17:58)
[2017-10-25] MEDS ORDERED: Chlorhexidine Gluconate 1 APPL/PKT TP ONE (01:43)
[2017-10-25 06:35] LABS: HEMATOCRIT 25.5 % (34.0-47.0); MEAN CELL VOLUME 75.6 fl (81.0-99.0); MEAN CORPUSCULAR HEMOGLOBIN 23.3 pg (27.0-31.0); MEAN CORPUSCULAR HGB CONC 30.8 g/dL (33.0-37.0); RED CELL DISTRIBUTION WIDTH 21.3 % (11.5-14.5); WHITE BLOOD COUNT 10.6 K/uL (4.8-10.8)
[2017-10-25] MEDS: Levothyroxine 175 MCG TAB PO SCH (06:50)
[2017-10-25] MEDS: Potassium Ch 20mEq in D5-1/2NS 1,000 ML IV SCH (06:50)
[2017-10-25] MEDS: Insulin Lispro (humaLOG) 100 Units/ml Inj SC SCH ×4 (06:51→21:12)
[2017-10-25] MEDS ORDERED: Sodium Chloride 0.9% 1,000 ML IV SCH (07:15)
--- NOTE | 2017-10-25 08:12 | CP.PCM.PN ---
Subjective - Date & Time of Evaluation Date of Evaluation: 10/25/17 Time of Evaluation: 08:12 - Subjective Subjective: pt seen for diverticulitis H/H stable doing well, clinicallyimproving, much more comfortable, no pain GI and ID consulted overnight HD stable NAD Objective - Vital Signs/Intake and Output Vital Signs (last 24 hours): Temp Pulse Resp BP Pulse Ox 99.3 F 70 20 135/67 96 10/25/17 07:49 10/25/17 07:49 10/25/17 07:49 10/25/17 07:49 10/25/17 07:49 - Medications Medications: Current Medications Acetaminophen (Tylenol 325mg Tab) 650 mg PO Q6 PRN PRN Reason: Fever >100.4 F Last Admin: 10/24/17 23:43 Dose: 650 mg Acetaminophen (Tylenol 325mg Tab) 650 mg PO Q6 PRN PRN Reason: Other Last Admin: 10/23/17 08:30 Dose: 650 mg Al Hydrox/Mg Hydrox/Simethicone (Maalox Plus 30 Ml) 30 ml PO Q6 PRN PRN Reason: Indigestion / Heartburn Last Admin: 10/23/17 23:18 Dose: 30 ml Amiodarone HCl (Cordarone) 100 mg PO DAILY [facility] Last Admin: 10/24/17 12:58 Dose: 100 mg Amlodipine Besylate (Norvasc) 2.5 mg PO DAILY [facility] Last Admin: 10/24/17 08:37 Dose: 2.5 mg Aspirin (Ecotrin) 81 mg PO DAILY [facility] Atorvastatin Calcium (Lipitor) 40 mg PO DAILY [facility] Last Admin: 10/24/17 08:37 Dose: 40 mg Citalopram Hydrobromide (Celexa) 10 mg PO DAILY [facility] Last Admin: 10/24/17 08:36 Dose: 10 mg Clopidogrel Bisulfate (Plavix) 75 mg PO DAILY [facility] Ferrous Sulfate (Feosol) 325 mg PO BID [facility] Last Admin: 10/24/17 16:15 Dose: 325 mg Hydromorphone HCl (Dilaudid) 0.25 mg IVP Q6 PRN PRN Reason: Pain, severe (8-10) Ciprofloxacin (Cipro 400mg/200ml Dsw) 400 mg in 200 mls @ 200 mls/hr IVPB Q12 JOSE A PRN Reason: Protocol Last Admin: 10/24/17 22:20 Dose: 200 mls/hr Metronidazole (Flagyl 500mg/100ml Ns) 100 mls @ 100 mls/hr IVPB Q8 JOSE A PRN Reason: Protocol Last Admin: 10/25/17 01:37 Dose: 100 mls/hr Dextrose/Sodium Chloride (Dextrose 5%/0.9% Ns 1000 Ml) 1,000 mls @ 125 mls/hr IV .Q8H [facility] Stop: 10/26/17 07:08 Insulin Human Lispro (Humalog) 0 units SC ACHS JOSE A PRN Reason: Protocol Last Admin: 10/25/17 06:51 Dose: 1 unit Isosorbide Mononitrate (Imdur Er) 30 mg PO DAILY [facility] Last Admin: 10/24/17 08:36 Dose: 30 mg Levothyroxine Sodium (Synthroid) 175 mcg PO DAILY@0630 [facility] Last Admin: 10/25/17 06:50 Dose: 175 mcg Losartan Potassium (Cozaar) 50 mg PO DAILY [facility] Last Admin: 10/24/17 08:38 Dose: 50 mg Metformin HCl (Glucophage) 1,000 mg PO BID [facility] Last Admin: 10/24/17 16:14 Dose: 1,000 mg Olopatadine HCl (Patanol 0.1% Opht Soln) 1 drop OU DAILY [facility] Last Admin: 10/24/17 16:14 Dose: Not Given Ondansetron HCl (Zofran Inj) 4 mg IVP Q6 PRN PRN Reason: Nausea/Vomiting Last Admin: 10/23/17 08:37 Dose: 4 mg Pantoprazole Sodium (Protonix Ec Tab) 20 mg PO DAILY [facility] Last Admin: 10/24/17 08:37 Dose: 20 mg Pregabalin (Lyrica) 50 mg PO HS [facility] Last Admin: 10/24/17 22:21 Dose: 50 mg Fluticasone/Salmeterol (Advair Diskus 250/50) 1 puff INH BID [facility] Last Admin: 10/24/17 16:14 Dose: 1 puff Sitagliptin Phosphate (Januvia) 100 mg PO DAILY [facility] Last Admin: 10/24/17 08:36 Dose: 100 mg - Labs Labs: 10/25/17 05:45 10/24/17 21:05 - Constitutional Appears: Non-toxic, No Acute Distress - Head Exam Head Exam: ATRAUMATIC, NORMOCEPHALIC - Eye Exam Eye Exam: EOMI, Normal appearance - ENT Exam ENT Exam: Mucous Membranes Moist, Normal Oropharynx - Respiratory Exam Respiratory Exam: Clear to Ausculation Bilateral, NORMAL BREATHING PATTERN - Cardiovascular Exam Cardiovascular Exam: RRR, +S1, +S2 - GI/Abdominal Exam GI & Abdominal Exam: Soft. absent: Tenderness - Extremities Exam Extremities Exam: Normal Capillary Refill, Normal Inspection - Back Exam Back Exam: absent: CVA tenderness (L), CVA tenderness (R) - Neurological Exam Neurological Exam: Alert, Oriented x3 - Psychiatric Exam Psychiatric exam: Normal Affect, Normal Mood - Skin Skin Exam: Dry, Warm Assessment and Plan - Assessment and Plan (Free Text) Plan: 86 year old female PMH CAD, HTN, AFib, hypothyroid, diabetes mellitus, seen at bedside for one month history of increased dyspnea, normal echo in November. Patient was found to be anemic on admission with H/H 5.8/19.2. 2 UNITS PRBC were transfused 10/22/17 with a third unit transfused 10/23/17. H/H still not normalizing, Need to r/o internal bleed. Patient for CT abdomen today 10/24/17. GI consulted and 2 mg morphine given for increased stomach pain. CT abdomen shows descending colon diverticulosis and sigmoid colon diverticulitis. Pt clinically improving today, less pain. 1. Anemia - Most likely due to bleed from diverticulitis - 3 units of PRBC total transfused since admission. - Post transfusion H/H 7.7/24.8 - F/u CBC - Hold Plavix and ASA - Feosol 325 mg PO BID - Advair Diskus q12 for dyspnea - CXR: No acute disease. No significant interval change compared to the prior examinations - Vitals qshift 2. Diverticulitis - Abdomen/pelvis CT: Severe diverticulosis affecting descending colon and sigmoid. Mild acute sigmoid diverticulitis - Cipro 400mg IV q12 - Flagyl 500 IV q8 - Dilaudid 0.25 IV q6 prn pain - Fluids: D5w 1/2NS 20K+ at 125/hr - advancing diet, can d/c fluids once tolerating PO well - GI consult called overnight - ID consult called overnight 3. HTN - BP 131/54 - Continue Lipitor, Imdur, Cozaar, Norvasc 4. Afib - Rate controlled - Continue Amiodarone 5. DJD, shoulder - Continue Tylenol prn for pain 6 HYPOTHYROID - TSH 8.87 - Continue Synthroid 7. DIABETES MELLITUS - Glucose 172 - Humalog - Metformin - Januvia - ISS - Accuchecks 8. DEPRESSION - Citalopram [CeleXA] 10 mg PO DAILY - Pregabalin [Lyrica] 50 mg PO HS 9. DVT Prophylaxis - Hold ASA - SCDs
[2017-10-25] MEDS: Fluticasone-Salmeterol 250-50mcg Diskus INH SCH ×2 (08:51→17:56)
[2017-10-25] MEDS: Ciprofloxacin 400mg/200ml D5W 400 MG/200 ML BAG IVPB SCH ×2 (08:56→21:06)
[2017-10-25] MEDS: Pantoprazole 20 mg EC Tab PO SCH (08:58)
[2017-10-25] MEDS: Dextrose 5%/0.9% NS 1,000 ML IV SCH ×2 (09:01→17:57)
--- NOTE | 2017-10-25 10:43 | CP.PCM.CON ---
<Kimberlee Quiles - Last Filed: 10/25/17 10:31> History of Present Illness - History of Present Illness History of Present Illness: Gastroenterology Fellow/PGY5 Consult Note 87 year old female with history of Hypertension, CAD, Hypothyroidism, Afib ( rate controlled), and Diabetes presenting with shortness of breath. Active treatment of anemia s/p 3Units pRBCS with CT A/P showing sigmoid diverticulitis. Patient denies nausea, vomiting, hematemesis, abdominal pain, diarrhea, constipation, melena, hematochezia, unintentional weight loss, recent travel, recent antibiotics, or sick contacts. No prior EGD or colonoscopy. Family- denies stomach cancer, colon cancer Social- denies tobacco, alcohol, illicit drug use Surgery- hysterectomy Review of Systems - Review of Systems Review of Systems: 12-point review of systems negative except for as above Past Patient History - Infectious Disease Hx of Infectious Diseases: None - Past Medical History & Family History Past Medical History?: Yes - Past Social History Smoking Status: Never Smoked - CARDIAC Hx Atrial Fibrillation: Yes Hx Congestive Heart Failure: Yes Hx Hypercholesterolemia: Yes Hx Hypertension: Yes - PULMONARY Hx Asthma: Yes Hx Bronchitis: Yes Hx Chronic Obstructive Pulmonary Disease (COPD): Yes Hx Pneumonia: Yes Hx Sleep Apnea: Yes - NEUROLOGICAL Hx Neurological Disorder: No - HEENT Hx HEENT Problems: No - RENAL Hx Chronic Kidney Disease: No - ENDOCRINE/METABOLIC Hx Hyperthyroidism: Yes Hx Hypothyroidism: Yes - HEMATOLOGICAL/ONCOLOGICAL Hx Human Immunodeficiency Virus (HIV): No - INTEGUMENTARY Hx Dermatological Problems: No - MUSCULOSKELETAL/RHEUMATOLOGICAL Hx Arthritis: Yes - GASTROINTESTINAL Hx Diverticulitis: Yes - GENITOURINARY/GYNECOLOGICAL Hx Genitourinary Disorders: No - PSYCHIATRIC Hx Psychophysiologic Disorder: No Hx Substance Use: No - SURGICAL HISTORY Hx Cholecystectomy: Yes Hx Coronary Artery Bypass Graft: No - ANESTHESIA Hx Anesthesia: Yes Hx Anesthesia Reactions: No Hx Malignant Hyperthermia: No Meds Allergies/Adverse Reactions: Allergies Allergy/AdvReac Type Severity Reaction Status Date / Time No Known Allergies Allergy Verified 10/22/17 12:46 - Medications Medications: Current Medications Acetaminophen (Tylenol 325mg Tab) 650 mg PO Q6 PRN PRN Reason: Fever >100.4 F Last Admin: 10/24/17 23:43 Dose: 650 mg Acetaminophen (Tylenol 325mg Tab) 650 mg PO Q6 PRN PRN Reason: Other Last Admin: 10/23/17 08:30 Dose: 650 mg Al Hydrox/Mg Hydrox/Simethicone (Maalox Plus 30 Ml) 30 ml PO Q6 PRN PRN Reason: Indigestion / Heartburn Last Admin: 10/23/17 23:18 Dose: 30 ml Amiodarone HCl (Cordarone) 100 mg PO DAILY [facility] Last Admin: 10/24/17 12:58 Dose: 100 mg Amlodipine Besylate (Norvasc) 2.5 mg PO DAILY [facility] Last Admin: 10/25/17 08:57 Dose: 2.5 mg Aspirin (Ecotrin) 81 mg PO DAILY [facility] Atorvastatin Calcium (Lipitor) 40 mg PO DAILY [facility] Last Admin: 10/25/17 08:58 Dose: 40 mg Citalopram Hydrobromide (Celexa) 10 mg PO DAILY [facility] Last Admin: 10/25/17 08:58 Dose: 10 mg Clopidogrel Bisulfate (Plavix) 75 mg PO DAILY [facility] Ferrous Sulfate (Feosol) 325 mg PO BID [facility] Last Admin: 10/25/17 08:57 Dose: 325 mg Hydromorphone HCl (Dilaudid) 0.25 mg IVP Q6 PRN PRN Reason: Pain, severe (8-10) Ciprofloxacin (Cipro 400mg/200ml Dsw) 400 mg in 200 mls @ 200 mls/hr IVPB Q12 [facility] PRN Reason: Protocol Last Admin: 10/25/17 08:56 Dose: 200 mls/hr Metronidazole (Flagyl 500mg/100ml Ns) 100 mls @ 100 mls/hr IVPB Q8 [facility] PRN Reason: Protocol Last Admin: 10/25/17 08:56 Dose: 100 mls/hr Dextrose/Sodium Chloride (Dextrose 5%/0.9% Ns 1000 Ml) 1,000 mls @ 125 mls/hr IV .Q8H [facility] Stop: 10/26/17 07:08 Last Admin: 10/25/17 09:01 Dose: 125 mls/hr Insulin Human Lispro (Humalog) 0 units SC ACHS [facility] PRN Reason: Protocol Last Admin: 10/25/17 06:51 Dose: 1 unit Isosorbide Mononitrate (Imdur Er) 30 mg PO DAILY [facility] Last Admin: 10/25/17 08:58 Dose: 30 mg Levothyroxine Sodium (Synthroid) 175 mcg PO DAILY@0630 [facility] Last Admin: 10/25/17 06:50 Dose: 175 mcg Losartan Potassium (Cozaar) 50 mg PO DAILY [facility] Last Admin: 10/25/17 08:59 Dose: 50 mg Metformin HCl (Glucophage) 1,000 mg PO BID [facility] Last Admin: 10/25/17 08:58 Dose: 1,000 mg Olopatadine HCl (Patanol 0.1% Opht Soln) 1 drop OU DAILY [facility] Last Admin: 10/24/17 16:14 Dose: Not Given Ondansetron HCl (Zofran Inj) 4 mg IVP Q6 PRN PRN Reason: Nausea/Vomiting Last Admin: 10/23/17 08:37 Dose: 4 mg Pantoprazole Sodium (Protonix Ec Tab) 20 mg PO DAILY [facility] Last Admin: 10/25/17 08:58 Dose: 20 mg Pregabalin (Lyrica) 50 mg PO HS [facility] Last Admin: 10/24/17 22:21 Dose: 50 mg Fluticasone/Salmeterol (Advair Diskus 250/50) 1 puff INH BID [facility] Last Admin: 10/25/17 08:51 Dose: 1 puff Sitagliptin Phosphate (Januvia) 100 mg PO DAILY [facility] Last Admin: 10/25/17 08:57 Dose: 100 mg Physical Exam - Constitutional Appears: Non-toxic, No Acute Distress - Head Exam Head Exam: ATRAUMATIC, NORMOCEPHALIC - Eye Exam Eye Exam: EOMI, PERRL Pupil Exam: PERRL. absent: Miosis, Mydriatic - ENT Exam ENT Exam: Mucous Membranes Moist, Normal Oropharynx - Respiratory Exam Respiratory Exam: Clear to Auscultation Bilateral. absent: Rales, Rhonchi, Wheezes - Cardiovascular Exam Cardiovascular Exam: RRR, +S1, +S2. absent: Gallop, Rubs - GI/Abdominal Exam GI & Abdominal Exam: Normal Bowel Sounds, Soft. absent: Distended, Firm, Guarding, Organomegaly, Rebound, Rigid, Tenderness - Extremities Exam Extremities exam: Positive for: normal inspection, pedal edema - Neurological Exam Neurological exam: Alert, Oriented x3 - Psychiatric Exam Psychiatric exam: Normal Affect, Normal Mood - Skin Skin Exam: Dry, Intact, Normal Color, Warm Results - Vital Signs Recent Vital Signs: Last Vital Signs Temp 99.3 F 10/25/17 07:49 Pulse 70 10/25/17 08:59 Resp 20 10/25/17 07:49 BP 135/67 10/25/17 08:59 Pulse Ox 96 10/25/17 07:49 - Labs Result Diagrams: 10/25/17 05:45 10/24/17 21:05 Labs: Laboratory Results - last 24 hr 10/24/17 10/24/17 10/24/17 04:45 11:47 16:01 WBC RBC Hgb Hct MCV MCH MCHC RDW Plt Count Sodium Potassium Chloride Carbon Dioxide Anion Gap BUN Creatinine Est GFR ( Amer) Est GFR (Non-Af Amer) POC Glucose (mg/dL) 172 H 123 H Random Glucose Calcium Phosphorus Magnesium Free T3 pg/mL 1.93 L 10/24/17 10/24/17 10/24/17 20:59 21:05 21:05 WBC 10.0 RBC 3.20 L Hgb 7.2 L Hct 24.1 L MCV 75.4 L MCH 22.4 L MCHC 29.8 L RDW 21.2 H Plt Count 235 Sodium 130 L Potassium 4.6 Chloride 97 L Carbon Dioxide 26 Anion Gap 12 BUN 17 Creatinine 0.8 Est GFR ( Amer) > 60 Est GFR (Non-Af Amer) > 60 POC Glucose (mg/dL) 183 H Random Glucose 171 H Calcium 7.8 L Phosphorus 3.9 Magnesium 2.2 Free T3 pg/mL 10/25/17 10/25/17 05:23 05:45 WBC 10.6 RBC 3.36 L Hgb 7.8 L Hct 25.5 L MCV 75.6 L MCH 23.3 L MCHC 30.8 L RDW 21.3 H Plt Count 246 Sodium Potassium Chloride Carbon Dioxide Anion Gap BUN Creatinine Est GFR ( Amer) Est GFR (Non-Af Amer) POC Glucose (mg/dL) 151 H Random Glucose Calcium Phosphorus Magnesium Free T3 pg/mL Assessment & Plan - Assessment and Plan (Free Text) Assessment: 87 year old female with history of Hypertension, CAD, Hypothyroidism, Afib ( rate controlled), and Diabetes presenting with shortness of breath. Active treatment of anemia s/p 3Units pRBCS. CT A/P showing sigmoid diverticulitis. No prior EGD or colonoscopy. Plan: >send stool workup >continue cipro/flagyl >H/H stable >diet as tolerated >will benefit from EGD and colonoscopy given anemia and diverticulitis >outpatient colonoscopy in 6-8 weeks to rule out underlying pathology <Link Winters - Last Filed: 10/25/17 15:17> Meds - Medications Medications: Current Medications Acetaminophen (Tylenol 325mg Tab) 650 mg PO Q6 PRN PRN Reason: Fever >100.4 F Last Admin: 10/24/17 23:43 Dose: 650 mg Acetaminophen (Tylenol 325mg Tab) 650 mg PO Q6 PRN PRN Reason: Other Last Admin: 10/23/17 08:30 Dose: 650 mg Al Hydrox/Mg Hydrox/Simethicone (Maalox Plus 30 Ml) 30 ml PO Q6 PRN PRN Reason: Indigestion / Heartburn Last Admin: 10/23/17 23:18 Dose: 30 ml Amiodarone HCl (Cordarone) 100 mg PO DAILY [facility] Last Admin: 10/25/17 11:37 Dose: 100 mg Amlodipine Besylate (Norvasc) 2.5 mg PO DAILY [facility] Last Admin: 10/25/17 08:57 Dose: 2.5 mg Aspirin (Ecotrin) 81 mg PO DAILY [facility] Atorvastatin Calcium (Lipitor) 40 mg PO DAILY [facility] Last Admin: 10/25/17 08:58 Dose: 40 mg Citalopram Hydrobromide (Celexa) 10 mg PO DAILY [facility] Last Admin: 10/25/17 08:58 Dose: 10 mg Clopidogrel Bisulfate (Plavix) 75 mg PO DAILY [facility] Ferrous Sulfate (Feosol) 325 mg PO BID [facility] Last Admin: 10/25/17 08:57 Dose: 325 mg Hydromorphone HCl (Dilaudid) 0.25 mg IVP Q6 PRN PRN Reason: Pain, severe (8-10) Ciprofloxacin (Cipro 400mg/200ml Dsw) 400 mg in 200 mls @ 200 mls/hr IVPB Q12 JOSE A PRN Reason: Protocol Last Admin: 10/25/17 08:56 Dose: 200 mls/hr Metronidazole (Flagyl 500mg/100ml Ns) 100 mls @ 100 mls/hr IVPB Q8 [facility] PRN Reason: Protocol Last Admin: 10/25/17 08:56 Dose: 100 mls/hr Dextrose/Sodium Chloride (Dextrose 5%/0.9% Ns 1000 Ml) 1,000 mls @ 125 mls/hr IV .Q8H [facility] Stop: 10/26/17 07:08 Last Admin: 10/25/17 09:01 Dose: 125 mls/hr Insulin Human Lispro (Humalog) 0 units SC ACHS [facility] PRN Reason: Protocol Last Admin: 10/25/17 11:50 Dose: 1 unit Isosorbide Mononitrate (Imdur Er) 30 mg PO DAILY [facility] Last Admin: 10/25/17 08:58 Dose: 30 mg Levothyroxine Sodium (Synthroid) 175 mcg PO DAILY@0630 [facility] Last Admin: 10/25/17 06:50 Dose: 175 mcg Losartan Potassium (Cozaar) 50 mg PO DAILY [facility] Last Admin: 10/25/17 08:59 Dose: 50 mg Metformin HCl (Glucophage) 1,000 mg PO BID [facility] Last Admin: 10/25/17 08:58 Dose: 1,000 mg Olopatadine HCl (Patanol 0.1% Opht Soln) 1 drop OU DAILY [facility] Last Admin: 10/24/17 16:14 Dose: Not Given Ondansetron HCl (Zofran Inj) 4 mg IVP Q6 PRN PRN Reason: Nausea/Vomiting Last Admin: 10/25/17 13:10 Dose: 4 mg Pantoprazole Sodium (Protonix Ec Tab) 20 mg PO DAILY [facility] Last Admin: 10/25/17 08:58 Dose: 20 mg Pregabalin (Lyrica) 50 mg PO HS [facility] Last Admin: 10/24/17 22:21 Dose: 50 mg Fluticasone/Salmeterol (Advair Diskus 250/50) 1 puff INH BID [facility] Last Admin: 10/25/17 08:51 Dose: 1 puff Sitagliptin Phosphate (Januvia) 100 mg PO DAILY [facility] Last Admin: 10/25/17 08:57 Dose: 100 mg Results - Vital Signs Recent Vital Signs: Last Vital Signs Temp 99.3 F 10/25/17 12:41 Pulse 73 10/25/17 12:41 Resp 20 10/25/17 12:41 BP 153/67 H 10/25/17 12:41 Pulse Ox 85 L 10/25/17 12:41 - Labs Result Diagrams: 10/25/17 05:45 10/24/17 21:05 Labs: Laboratory Results - last 24 hr 10/24/17 10/24/17 10/24/17 16:01 20:59 21:05 WBC 10.0 RBC 3.20 L Hgb 7.2 L Hct 24.1 L MCV 75.4 L MCH 22.4 L MCHC 29.8 L RDW 21.2 H Plt Count 235 Sodium Potassium Chloride Carbon Dioxide Anion Gap BUN Creatinine Est GFR ( Amer) Est GFR (Non-Af Amer) POC Glucose (mg/dL) 123 H 183 H Random Glucose Calcium Phosphorus Magnesium 10/24/17 10/25/17 10/25/17 21:05 05:23 05:45 WBC 10.6 RBC 3.36 L Hgb 7.8 L Hct 25.5 L MCV 75.6 L MCH 23.3 L MCHC 30.8 L RDW 21.3 H Plt Count 246 Sodium 130 L Potassium 4.6 Chloride 97 L Carbon Dioxide 26 Anion Gap 12 BUN 17 Creatinine 0.8 Est GFR ( Amer) > 60 Est GFR (Non-Af Amer) > 60 POC Glucose (mg/dL) 151 H Random Glucose 171 H Calcium 7.8 L Phosphorus 3.9 Magnesium 2.2 10/25/17 10:51 WBC RBC Hgb Hct MCV MCH MCHC RDW Plt Count Sodium Potassium Chloride Carbon Dioxide Anion Gap BUN Creatinine Est GFR ( Amer) Est GFR (Non-Af Amer) POC Glucose (mg/dL) 171 H Random Glucose Calcium Phosphorus Magnesium Attending/Attestation - Attestation I have personally seen and examined this patient.: Yes I have fully participated in the care of the patient.: Yes I have reviewed all pertinent clinical information: Yes Notes (Text): 10/25/17 15:16 87 year old female with h/o HTN, CAD, Hypothyroidism, Afib, and DM a/w SOB, found to have acute diverticulitis on CT. 1. Acute diverticulitis Plan: -uncomplicated -recommend cipro/flagyl x 10 days -outpatient colonoscopy in 6-8 weeks -advance diet as tolerated
[2017-10-25] MEDS: Olopatadine 0.1% Opht SOLN OU SCH (17:59)
[2017-10-26] MEDS: metroNIDAZOLE 500mg/100ml NS 100 ML IVPB SCH ×3 (00:46→17:17)
[2017-10-26] MEDS: Dextrose 5%/0.9% NS 1,000 ML IV SCH (00:47)
[2017-10-26] MEDS: Insulin Lispro (humaLOG) 100 Units/ml Inj SC SCH ×4 (06:35→21:27)
[2017-10-26 07:37] LABS: BASO % 0.5 % (0.0-2.0); EOS # 0.1 K/uL (0.0-0.7); EOS % 0.7 % (0.0-4.0); HEMATOCRIT 25.1 % (34.0-47.0); LYMPH # 1.2 K/uL (1.0-4.3); LYMPH % 12.8 % (20.0-40.0); MEAN CORPUSCULAR HEMOGLOBIN 23.7 pg (27.0-31.0); MEAN CORPUSCULAR HGB CONC 31.2 g/dL (33.0-37.0); MEAN PLATELET VOLUME 7.9 fl (7.2-11.7); MONO % 10.2 % (0.0-10.0); NEUT # 7.1 K/uL (1.8-7.0); NEUT % 75.8 % (50.0-75.0); NRBC % 0.1 % (0.0-0.0); RED CELL DISTRIBUTION WIDTH 22.3 % (11.5-14.5); WHITE BLOOD COUNT 9.4 K/uL (4.8-10.8)
--- NOTE | 2017-10-26 08:01 | CP.PCM.PN ---
<Kimberlee Quiles - Last Filed: 10/26/17 07:59> Subjective - Date & Time of Evaluation Date of Evaluation: 10/26/17 Time of Evaluation: 07:59 - Subjective Subjective: Gastroenterology Fellow/PGY5 Progress Note Patient denies abdominal pain. Tolerating full liquid diet. One formed stool yesterday. A 12-point review of systems negative except for as above. Objective - Vital Signs/Intake and Output Vital Signs (last 24 hours): Temp Pulse Resp BP Pulse Ox 97 F L 76 18 149/65 94 L 10/26/17 05:31 10/26/17 05:31 10/26/17 05:31 10/26/17 05:31 10/26/17 05:31 - Medications Medications: Current Medications Acetaminophen (Tylenol 325mg Tab) 650 mg PO Q6 PRN PRN Reason: Fever >100.4 F Last Admin: 10/24/17 23:43 Dose: 650 mg Acetaminophen (Tylenol 325mg Tab) 650 mg PO Q6 PRN PRN Reason: Other Last Admin: 10/23/17 08:30 Dose: 650 mg Al Hydrox/Mg Hydrox/Simethicone (Maalox Plus 30 Ml) 30 ml PO Q6 PRN PRN Reason: Indigestion / Heartburn Last Admin: 10/23/17 23:18 Dose: 30 ml Amiodarone HCl (Cordarone) 100 mg PO DAILY [facility] Last Admin: 10/25/17 11:37 Dose: 100 mg Amlodipine Besylate (Norvasc) 2.5 mg PO DAILY [facility] Last Admin: 10/25/17 08:57 Dose: 2.5 mg Aspirin (Ecotrin) 81 mg PO DAILY [facility] Atorvastatin Calcium (Lipitor) 40 mg PO DAILY [facility] Last Admin: 10/25/17 08:58 Dose: 40 mg Citalopram Hydrobromide (Celexa) 10 mg PO DAILY [facility] Last Admin: 10/25/17 08:58 Dose: 10 mg Clopidogrel Bisulfate (Plavix) 75 mg PO DAILY [facility] Ferrous Sulfate (Feosol) 325 mg PO BID [facility] Last Admin: 10/25/17 17:58 Dose: 325 mg Hydromorphone HCl (Dilaudid) 0.25 mg IVP Q6 PRN PRN Reason: Pain, severe (8-10) Ciprofloxacin (Cipro 400mg/200ml Dsw) 400 mg in 200 mls @ 200 mls/hr IVPB Q12 JOSE A PRN Reason: Protocol Last Admin: 10/25/17 21:06 Dose: 200 mls/hr Metronidazole (Flagyl 500mg/100ml Ns) 100 mls @ 100 mls/hr IVPB Q8 JOSE A PRN Reason: Protocol Last Admin: 10/26/17 00:46 Dose: 100 mls/hr Insulin Human Lispro (Humalog) 0 units SC ACHS JOSE A PRN Reason: Protocol Last Admin: 10/26/17 06:35 Dose: 1 unit Isosorbide Mononitrate (Imdur Er) 30 mg PO DAILY [facility] Last Admin: 10/25/17 08:58 Dose: 30 mg Levothyroxine Sodium (Synthroid) 175 mcg PO DAILY@0630 [facility] Last Admin: 10/25/17 06:50 Dose: 175 mcg Losartan Potassium (Cozaar) 50 mg PO DAILY [facility] Last Admin: 10/25/17 08:59 Dose: 50 mg Metformin HCl (Glucophage) 1,000 mg PO BID [facility] Last Admin: 10/25/17 19:01 Dose: 1,000 mg Olopatadine HCl (Patanol 0.1% Opht Soln) 1 drop OU DAILY [facility] Last Admin: 10/25/17 17:59 Dose: 1 drop Ondansetron HCl (Zofran Inj) 4 mg IVP Q6 PRN PRN Reason: Nausea/Vomiting Last Admin: 10/25/17 13:10 Dose: 4 mg Pantoprazole Sodium (Protonix Ec Tab) 20 mg PO DAILY [facility] Last Admin: 10/25/17 08:58 Dose: 20 mg Pregabalin (Lyrica) 50 mg PO HS [facility] Last Admin: 10/25/17 21:05 Dose: 50 mg Fluticasone/Salmeterol (Advair Diskus 250/50) 1 puff INH BID [facility] Last Admin: 10/25/17 17:56 Dose: 1 puff Sitagliptin Phosphate (Januvia) 100 mg PO DAILY [facility] Last Admin: 10/25/17 08:57 Dose: 100 mg - Labs Labs: 10/26/17 06:30 10/24/17 21:05 - Constitutional Appears: Non-toxic, No Acute Distress - Head Exam Head Exam: ATRAUMATIC, NORMOCEPHALIC - Eye Exam Eye Exam: EOMI, PERRL. absent: Scleral icterus Pupil Exam: PERRL. absent: Miosis, Mydriatic - ENT Exam ENT Exam: Mucous Membranes Moist, Normal Oropharynx - Neck Exam Neck Exam: Full ROM, Normal Inspection - Respiratory Exam Respiratory Exam: Clear to Ausculation Bilateral. absent: Rales, Rhonchi, Wheezes - Cardiovascular Exam Cardiovascular Exam: RRR, +S1, +S2. absent: Gallop, Rubs - GI/Abdominal Exam GI & Abdominal Exam: Soft, Normal Bowel Sounds. absent: Distended, Firm, Guarding, Tenderness, Organomegaly, Rebound - Extremities Exam Extremities Exam: Normal Inspection. absent: Pedal Edema - Neurological Exam Neurological Exam: Alert, Awake - Psychiatric Exam Psychiatric exam: Normal Affect, Normal Mood - Skin Skin Exam: Dry, Intact, Normal Color, Warm Assessment and Plan - Assessment and Plan (Free Text) Assessment: 87 year old female with history of Hypertension, CAD, Hypothyroidism, Afib ( rate controlled), and Diabetes presenting with shortness of breath. Active treatment of anemia s/p 3Units pRBCS and CT A/P showing sigmoid diverticulitis. No prior EGD or colonoscopy. Plan: >stool workup- C diff negative >on cipro/flagyl complete 10 day course >H/H stable >advance dto soft heart healthy diabetic diet >outpatient colonoscopy in 6-8 weeks to rule out underlying pathology <Link Winters - Last Filed: 10/26/17 11:06> Objective - Vital Signs/Intake and Output Vital Signs (last 24 hours): Temp Pulse Resp BP Pulse Ox 98 F 67 20 169/70 H 92 L 10/26/17 08:00 10/26/17 09:04 10/26/17 08:00 10/26/17 09:04 10/26/17 08:00 - Medications Medications: Current Medications Acetaminophen (Tylenol 325mg Tab) 650 mg PO Q6 PRN PRN Reason: Fever >100.4 F Last Admin: 10/24/17 23:43 Dose: 650 mg Acetaminophen (Tylenol 325mg Tab) 650 mg PO Q6 PRN PRN Reason: Other Last Admin: 10/23/17 08:30 Dose: 650 mg Al Hydrox/Mg Hydrox/Simethicone (Maalox Plus 30 Ml) 30 ml PO Q6 PRN PRN Reason: Indigestion / Heartburn Last Admin: 10/23/17 23:18 Dose: 30 ml Amiodarone HCl (Cordarone) 100 mg PO DAILY [facility] Last Admin: 10/26/17 09:02 Dose: Not Given Amlodipine Besylate (Norvasc) 2.5 mg PO DAILY [facility] Last Admin: 10/26/17 09:04 Dose: Not Given Aspirin (Ecotrin) 81 mg PO DAILY [facility] Atorvastatin Calcium (Lipitor) 40 mg PO DAILY [facility] Last Admin: 10/26/17 09:03 Dose: Not Given Citalopram Hydrobromide (Celexa) 10 mg PO DAILY [facility] Last Admin: 10/26/17 09:02 Dose: Not Given Clopidogrel Bisulfate (Plavix) 75 mg PO DAILY [facility] Ferrous Sulfate (Feosol) 325 mg PO BID [facility] Last Admin: 10/26/17 09:03 Dose: Not Given Hydromorphone HCl (Dilaudid) 0.25 mg IVP Q6 PRN PRN Reason: Pain, severe (8-10) Ciprofloxacin (Cipro 400mg/200ml Dsw) 400 mg in 200 mls @ 200 mls/hr IVPB Q12 JOSE A PRN Reason: Protocol Last Admin: 10/26/17 09:04 Dose: Not Given Metronidazole (Flagyl 500mg/100ml Ns) 100 mls @ 100 mls/hr IVPB Q8 JOSE A PRN Reason: Protocol Last Admin: 10/26/17 09:03 Dose: Not Given Insulin Human Lispro (Humalog) 0 units SC ACHS JOSE A PRN Reason: Protocol Last Admin: 10/26/17 06:35 Dose: 1 unit Isosorbide Mononitrate (Imdur Er) 30 mg PO DAILY [facility] Last Admin: 10/26/17 09:03 Dose: Not Given Levothyroxine Sodium (Synthroid) 175 mcg PO DAILY@0630 [facility] Last Admin: 10/26/17 09:04 Dose: Not Given Losartan Potassium (Cozaar) 50 mg PO DAILY [facility] Last Admin: 10/26/17 09:03 Dose: Not Given Metformin HCl (Glucophage) 1,000 mg PO BID [facility] Last Admin: 10/26/17 09:03 Dose: Not Given Olopatadine HCl (Patanol 0.1% Opht Soln) 1 drop OU DAILY [facility] Last Admin: 10/26/17 09:04 Dose: Not Given Ondansetron HCl (Zofran Inj) 4 mg IVP Q6 PRN PRN Reason: Nausea/Vomiting Last Admin: 10/25/17 13:10 Dose: 4 mg Pantoprazole Sodium (Protonix Ec Tab) 20 mg PO DAILY [facility] Last Admin: 10/26/17 09:04 Dose: Not Given Pregabalin (Lyrica) 50 mg PO HS [facility] Last Admin: 10/25/17 21:05 Dose: 50 mg Fluticasone/Salmeterol (Advair Diskus 250/50) 1 puff INH BID [facility] Last Admin: 10/26/17 09:02 Dose: Not Given Sitagliptin Phosphate (Januvia) 100 mg PO DAILY [facility] Last Admin: 10/26/17 09:03 Dose: Not Given - Labs Labs: 10/26/17 06:30 10/26/17 06:30 Attending/Attestation - Attestation I have personally seen and examined this patient.: Yes I have fully participated in the care of the patient.: Yes I have reviewed all pertinent clinical information, including history, physical exam and plan: Yes Notes (Text): 10/26/17 11:06 87 year old female with h/o HTN, CAD, Hypothyroidism, Afib, and DM a/w SOB, found to have acute diverticulitis on CT. 1. Acute diverticulitis Plan: -uncomplicated -recommend cipro/flagyl x 10 days -outpatient colonoscopy in 6-8 weeks -advance diet as tolerated -will sign off
[2017-10-26 08:08] LABS: BLOOD UREA NITROGEN 12 mg/dl (7-17); CALCIUM 8.1 mg/dL (8.4-10.2); CARBON DIOXIDE 26 mmol/L (22-30); CHLORIDE 96 mmol/L (98-107); GFR AFRICAN-AMERICAN > 60; GLUCOSE,RANDOM 167 mg/dL (65-105); SODIUM 128 mmol/l (132-148)
[2017-10-26] MEDS: Fluticasone-Salmeterol 250-50mcg Diskus INH SCH ×2 (09:02→17:18)
[2017-10-26] MEDS: Levothyroxine 175 MCG TAB PO SCH (09:04)
[2017-10-26] MEDS: Pantoprazole 20 mg EC Tab PO SCH (09:04)
[2017-10-26] MEDS: Olopatadine 0.1% Opht SOLN OU SCH (09:04)
[2017-10-26] MEDS: Ciprofloxacin 400mg/200ml D5W 400 MG/200 ML BAG IVPB SCH ×2 (09:04→22:34)
--- NOTE | 2017-10-26 12:56 | CP.PCM.CON ---
History of Present Illness - History of Present Illness History of Present Illness: 86 year old female PMH CAD, HTN, AFib, hypothyroid, diabetes mellitus, presents with a two month history of moderate increased and worsening dyspnea at rest and more so on exertion, normal echo in November. Found to be anemic H/H 5.8/19.2 , 2 UNITS PRBC being transfused. First troponin negative, no new EKG changes. CXR no active disease. No overt signs of failure, clear breath sounds. Found to have diverticultis Rx in progress GI on board ROS: per HPI, 12 systems reviewed and negative by wv PMD: DR. SHIN PMH: CHF CAD HTN hypothyroid diabetes mellitus Lumbar radiculopathy PSH: denies FH: DM HTN SH: denies tobacco, ETOH, IVDU Meds: as below Allergies: NKDA Review of Systems - Constitutional Constitutional: As Per HPI, Anorexia - EENT Eyes: absent: As Per HPI, Blind Spots, Blurred Vision, Change in Vision, Decreased Night Vision, Diplopia, Discharge, Dry Eye, Exophthalmos, Floaters, Irritation, Itchy Eyes, Loss of Peripheral Vision, Pain, Photophobia, Requires Corrective Lenses, Sees Flashes, Spots in Vision, Tunnel Vision, Other Visual Disturbances, Loss of Vision, Other Ears: absent: As Per HPI, Decreased Hearing, Ear Discharge, Ear Pain, Tinnitus, Abnormal Hearing, Disequilibrium, Dizziness, Other Nose/Mouth/Throat: absent: As Per HPI, Epistaxis, Nasal Congestion, Nasal Discharge, Nasal Obstruction, Nasal Trauma, Nose Pain, Post Nasal Drip, Sinus Pain, Sinus Pressure, Bleeding Gums, Change in Voice, Dental Pain, Dry Mouth, Dysphagia, Halitosis, Hoarsness, Lip Swelling, Mouth Lesions, Mouth Pain, Odynophagia, Sore Throat, Throat Swelling, Tongue Swelling, Facial Pain, Neck Pain, Neck Mass, Other - Breasts Breasts: absent: As Per HPI, Change in Shape, Mass, Pain, Nipple Discharge, Nipple Inversion, Skin Changes, Swelling, Other - Cardiovascular Cardiovascular: absent: As Per HPI, Acrocyanosis, Chest Pain, Chest Pain at Rest , Chest Pain with Activity, Claudication, Diaphoresis, Dyspnea, Dyspnea on Exertion, Edema, Irregular Heart Rhythm, Pain Radiating to Arm/Neck/Jaw, Leg Edema, Leg Ulcers, Lightheadedness, Orthopnea, Palpitations, Paroxysmal Nocturnal Dyspnea, Pedal Edema, Radiating Pain, Rapid Heart Rate, Slow Heart Rate, Syncope, Other - Respiratory Respiratory: As Per HPI - Gastrointestinal Gastrointestinal: As Per HPI, Abdominal Pain - Genitourinary Genitourinary: absent: As Per HPI, Change in Urinary Stream, Difficulty Urinating, Dysuria, Flank Pain, Hematuria, Pyuria, Nocturia, Urinary Incontinence, Urinary Frequency, Urinary Hesitance, Urinary Urgency, Voiding Freq/Small Amts, Freq UTI, Hx Renal/Bladder Calculi, Hx /Renal Surgery, Bladder Distension, Other - Reproductive: Female Reproductive:Female: absent: As Per HPI, Amenorrhea, Amenorrhea/ Control, Currently Menstual, Cycle <21 Days, Cycle >35 Days, Cycle Variable, Menses 1-7 Days, Menses >/= 8 Days, Menses Variable, Cycle > 4 Weeks Between, No Menses for 6 Months, Heavy Menses, Light Menses, Normal Menses, Spotting Between Cycles , S/P Hysterectomy, Menopausal, Post Menopausal, Premenarche, Abnormal Vaginal Bleeding, Dysmenorrhea, Dyspareunia, Genital Lesions, Genital Pruritis, Pelvic Pain, Prolapse Symptoms, Sexual Dysfunction, Vaginal Discharge, Vaginal Dryness , Vaginal Odor, Vaginal Pruritis, Other - Menstruation Menstruation: absent: As Per HPI, Amenorrhea, Amenorrhea/ Control, Currently Menstual, Cycle <21 Days, Cycle >35 Days, Cycle Variable, Menses 1-7 Days, Menses >/= 8 Days, Menses Variable, Cycle > 4 Weeks Between, No Menses for 6 Months, Heavy Menses, Light Menses, Normal Menses, Spotting Between Cycles , S/P Hysterectomy, Menopausal, Post Menopausal, Premenarche, Abnormal Vaginal Bleeding, Dysmenorrhea, Other - Musculoskeletal Musculoskeletal: As Per HPI - Integumentary Integumentary: absent: As Per HPI, Acne, Alopecia, Bleeding Lesions, Change in Hair, Change in Nails, Change in Pigmentation, Changing Lesions, Dry Skin, Erythema, Furuncle, Hirsutism, Lesions, New Lesions, Non-Healing Lesions, Photosensitivity, Pruritus, Rash, Skin Pain, Skin Ulcer, Sores, Striae, Swelling , Unusual Bruising, Wounds, Jaundice, Other - Neurological Neurological: absent: As Per HPI, Abnormal Gait, Abnormal Hearing, Abnormal Movements, Abnormal Speech, Behavioral Changes, Burning Sensations, Confusion, Convulsions, Disequilibrium, Dizziness, Numbness, Focal Weakness, Frequent Falls , Headaches, Lack of Coordination, Loss of Vision, Memory Loss, Paresthesias, Radicular Pain, Restless Legs, Sensory Deficit, Syncope, Tingling, Tremor, Vertigo, Weakness, Other Visual Disturbances, Other - Psychiatric Psychiatric: absent: As Per HPI, Abnormal Sleep Pattern, Anhedonia, Anxiety, Auditory Hallucinations, Behavioral Changes, Change in Appetite, Change in Libido, Confusion, Depression, Difficulty Concentrating, Hallucinations, Homicidal Ideation, Hopelessness, Irritability, Memory Loss, Mood Swings, Panic Attacks, Paranoia, Suicidal Ideation, Visual Hallucinations, Tactile Hallucinations, Other - Endocrine Endocrine: absent: As Per HPI, Change in Body Appearance, Change in Libido, Cold Intolorance, Deepening of Voice, Excessive Sweating, Fatigue, Flushing, Heat Intolorance, Increase in Ring/Shoe/Hat Size, Palpitations, Polydipsia, Polyphagia, Polyuria, Other - Hematologic/Lymphatic Hematologic: absent: As Per HPI, Easy Bleeding, Easy Bruising, Lymphadenopathy, Other Past Patient History - Infectious Disease Hx of Infectious Diseases: None - Past Medical History & Family History Past Medical History?: Yes - Past Social History Smoking Status: Never Smoked - CARDIAC Hx Atrial Fibrillation: Yes Hx Congestive Heart Failure: Yes Hx Hypercholesterolemia: Yes Hx Hypertension: Yes - PULMONARY Hx Asthma: Yes Hx Bronchitis: Yes Hx Chronic Obstructive Pulmonary Disease (COPD): Yes Hx Pneumonia: Yes Hx Sleep Apnea: Yes - NEUROLOGICAL Hx Neurological Disorder: No - HEENT Hx HEENT Problems: No - RENAL Hx Chronic Kidney Disease: No - ENDOCRINE/METABOLIC Hx Hyperthyroidism: Yes Hx Hypothyroidism: Yes - HEMATOLOGICAL/ONCOLOGICAL Hx Human Immunodeficiency Virus (HIV): No - INTEGUMENTARY Hx Dermatological Problems: No - MUSCULOSKELETAL/RHEUMATOLOGICAL Hx Arthritis: Yes - GASTROINTESTINAL Hx Diverticulitis: Yes - GENITOURINARY/GYNECOLOGICAL Hx Genitourinary Disorders: No - PSYCHIATRIC Hx Psychophysiologic Disorder: No Hx Substance Use: No - SURGICAL HISTORY Hx Cholecystectomy: Yes Hx Coronary Artery Bypass Graft: No - ANESTHESIA Hx Anesthesia: Yes Hx Anesthesia Reactions: No Hx Malignant Hyperthermia: No Meds Allergies/Adverse Reactions: Allergies Allergy/AdvReac Type Severity Reaction Status Date / Time No Known Allergies Allergy Verified 10/22/17 12:46 - Medications Medications: Current Medications Acetaminophen (Tylenol 325mg Tab) 650 mg PO Q6 PRN PRN Reason: Fever >100.4 F Last Admin: 10/24/17 23:43 Dose: 650 mg Acetaminophen (Tylenol 325mg Tab) 650 mg PO Q6 PRN PRN Reason: Other Last Admin: 10/23/17 08:30 Dose: 650 mg Al Hydrox/Mg Hydrox/Simethicone (Maalox Plus 30 Ml) 30 ml PO Q6 PRN PRN Reason: Indigestion / Heartburn Last Admin: 10/23/17 23:18 Dose: 30 ml Amiodarone HCl (Cordarone) 100 mg PO DAILY [facility] Last Admin: 10/26/17 09:02 Dose: Not Given Amlodipine Besylate (Norvasc) 2.5 mg PO DAILY [facility] Last Admin: 10/26/17 09:04 Dose: Not Given Aspirin (Ecotrin) 81 mg PO DAILY [facility] Atorvastatin Calcium (Lipitor) 40 mg PO DAILY [facility] Last Admin: 10/26/17 09:03 Dose: Not Given Citalopram Hydrobromide (Celexa) 10 mg PO DAILY [facility] Last Admin: 10/26/17 09:02 Dose: Not Given Clopidogrel Bisulfate (Plavix) 75 mg PO DAILY [facility] Ferrous Sulfate (Feosol) 325 mg PO BID [facility] Last Admin: 10/26/17 09:03 Dose: Not Given Hydromorphone HCl (Dilaudid) 0.25 mg IVP Q6 PRN PRN Reason: Pain, severe (8-10) Ciprofloxacin (Cipro 400mg/200ml Dsw) 400 mg in 200 mls @ 200 mls/hr IVPB Q12 [facility] PRN Reason: Protocol Last Admin: 10/26/17 09:04 Dose: Not Given Metronidazole (Flagyl 500mg/100ml Ns) 100 mls @ 100 mls/hr IVPB Q8 [facility] PRN Reason: Protocol Last Admin: 10/26/17 09:03 Dose: Not Given Insulin Human Lispro (Humalog) 0 units SC ACHS [facility] PRN Reason: Protocol Last Admin: 10/26/17 06:35 Dose: 1 unit Isosorbide Mononitrate (Imdur Er) 30 mg PO DAILY [facility] Last Admin: 10/26/17 09:03 Dose: Not Given Levothyroxine Sodium (Synthroid) 175 mcg PO DAILY@0630 [facility] Last Admin: 10/26/17 09:04 Dose: Not Given Losartan Potassium (Cozaar) 50 mg PO DAILY [facility] Last Admin: 10/26/17 09:03 Dose: Not Given Metformin HCl (Glucophage) 1,000 mg PO BID [facility] Last Admin: 10/26/17 09:03 Dose: Not Given Olopatadine HCl (Patanol 0.1% Opht Soln) 1 drop OU DAILY [facility] Last Admin: 10/26/17 09:04 Dose: Not Given Ondansetron HCl (Zofran Inj) 4 mg IVP Q6 PRN PRN Reason: Nausea/Vomiting Last Admin: 10/25/17 13:10 Dose: 4 mg Pantoprazole Sodium (Protonix Ec Tab) 20 mg PO DAILY [facility] Last Admin: 10/26/17 09:04 Dose: Not Given Pregabalin (Lyrica) 50 mg PO HS [facility] Last Admin: 10/25/17 21:05 Dose: 50 mg Fluticasone/Salmeterol (Advair Diskus 250/50) 1 puff INH BID [facility] Last Admin: 10/26/17 09:02 Dose: Not Given Sitagliptin Phosphate (Januvia) 100 mg PO DAILY [facility] Last Admin: 10/26/17 09:03 Dose: Not Given Physical Exam - Constitutional Appears: Non-toxic, No Acute Distress, Chronically Ill - Head Exam Head Exam: ATRAUMATIC, NORMAL INSPECTION, NORMOCEPHALIC - Eye Exam Eye Exam: PERRL. absent: Scleral icterus - ENT Exam ENT Exam: Mucous Membranes Dry, Normal External Ear Exam - Neck Exam Neck exam: Negative for: Lymphadenopathy, Thyromegaly - Respiratory Exam Respiratory Exam: Decreased Breath Sounds, Rhonchi - Cardiovascular Exam Cardiovascular Exam: REGULAR RHYTHM, +S1, +S2 - GI/Abdominal Exam GI & Abdominal Exam: Diminished Bowel Sounds, Distended, Soft, Tenderness. absent: Pulsatile Mass, Rebound, Rigid - Rectal Exam Rectal Exam: Deferred - Exam Exam: NORMAL INSPECTION - Extremities Exam Extremities exam: Positive for: pedal pulses present. Negative for: calf tenderness, pedal edema, tenderness - Back Exam Back exam: absent: CVA tenderness (L), CVA tenderness (R), paraspinal tenderness - Neurological Exam Neurological exam: Alert, CN II-XII Intact, Oriented x3, Reflexes Normal - Psychiatric Exam Psychiatric exam: Normal Mood - Skin Skin Exam: Dry, Intact Results - Vital Signs Recent Vital Signs: Last Vital Signs Temp 98.3 F 10/26/17 12:00 Pulse 77 10/26/17 12:00 Resp 20 10/26/17 12:00 BP 151/70 H 10/26/17 12:00 Pulse Ox 95 10/26/17 12:00 - Labs Result Diagrams: 10/26/17 06:30 10/26/17 06:30 Labs: Laboratory Results - last 24 hr 10/25/17 10/25/17 10/25/17 17:48 18:33 21:12 WBC RBC Hgb Hct MCV MCH MCHC RDW Plt Count MPV Neut % (Auto) Lymph % (Auto) Pierce % (Auto) Eos % (Auto) Baso % (Auto) Neut # Lymph # Pierce # Eos # Baso # Sodium Potassium Chloride Carbon Dioxide Anion Gap BUN Creatinine Est GFR ( Amer) Est GFR (Non-Af Amer) POC Glucose (mg/dL) 180 H 157 H Random Glucose Calcium C. difficile Ag & Toxin Negative 10/26/17 10/26/17 10/26/17 05:47 06:30 06:30 WBC 9.4 RBC 3.30 L Hgb 7.8 L Hct 25.1 L MCV 76.0 L MCH 23.7 L MCHC 31.2 L RDW 22.3 H Plt Count 247 MPV 7.9 Neut % (Auto) 75.8 H Lymph % (Auto) 12.8 L Pierce % (Auto) 10.2 H Eos % (Auto) 0.7 Baso % (Auto) 0.5 Neut # 7.1 H Lymph # 1.2 Pierce # 1.0 H Eos # 0.1 Baso # 0.0 Sodium 128 L Potassium 5.0 Chloride 96 L Carbon Dioxide 26 Anion Gap 11 BUN 12 Creatinine 0.6 L Est GFR ( Amer) > 60 Est GFR (Non-Af Amer) > 60 POC Glucose (mg/dL) 152 H Random Glucose 167 H Calcium 8.1 L C. difficile Ag & Toxin 10/26/17 11:08 WBC RBC Hgb Hct MCV MCH MCHC RDW Plt Count MPV Neut % (Auto) Lymph % (Auto) Pierce % (Auto) Eos % (Auto) Baso % (Auto) Neut # Lymph # Pierce # Eos # Baso # Sodium Potassium Chloride Carbon Dioxide Anion Gap BUN Creatinine Est GFR ( Amer) Est GFR (Non-Af Amer) POC Glucose (mg/dL) 186 H Random Glucose Calcium C. difficile Ag & Toxin Assessment & Plan - Assessment and Plan (Free Text) Assessment: diverticulitis with severe anemia IV rx in progress and GI following Prognosis guarded will follow
--- NOTE | 2017-10-26 17:55 | CP.PCM.PN ---
Subjective - Date & Time of Evaluation Date of Evaluation: 10/26/17 Time of Evaluation: 15:00 - Subjective Subjective: Patient seen and examined bedside. feeling well. tolerating PO intake. Denies any CP, SOB, plapittaions. Denies any abdominal pain .Had regular BM Objective - Vital Signs/Intake and Output Vital Signs (last 24 hours): Temp Pulse Resp BP Pulse Ox 99.1 F 73 18 146/65 97 10/26/17 17:00 10/26/17 17:00 10/26/17 17:00 10/26/17 17:00 10/26/17 17:00 - Medications Medications: Current Medications Acetaminophen (Tylenol 325mg Tab) 650 mg PO Q6 PRN PRN Reason: Fever >100.4 F Last Admin: 10/24/17 23:43 Dose: 650 mg Acetaminophen (Tylenol 325mg Tab) 650 mg PO Q6 PRN PRN Reason: Other Last Admin: 10/23/17 08:30 Dose: 650 mg Al Hydrox/Mg Hydrox/Simethicone (Maalox Plus 30 Ml) 30 ml PO Q6 PRN PRN Reason: Indigestion / Heartburn Last Admin: 10/23/17 23:18 Dose: 30 ml Amiodarone HCl (Cordarone) 100 mg PO DAILY [facility] Last Admin: 10/26/17 09:02 Dose: Not Given Amlodipine Besylate (Norvasc) 2.5 mg PO DAILY [facility] Last Admin: 10/26/17 09:04 Dose: Not Given Aspirin (Ecotrin) 81 mg PO DAILY [facility] Atorvastatin Calcium (Lipitor) 40 mg PO DAILY [facility] Last Admin: 10/26/17 09:03 Dose: Not Given Citalopram Hydrobromide (Celexa) 10 mg PO DAILY [facility] Last Admin: 10/26/17 09:02 Dose: Not Given Clopidogrel Bisulfate (Plavix) 75 mg PO DAILY [facility] Ferrous Sulfate (Feosol) 325 mg PO BID [facility] Last Admin: 10/26/17 17:17 Dose: Not Given Hydromorphone HCl (Dilaudid) 0.25 mg IVP Q6 PRN PRN Reason: Pain, severe (8-10) Ciprofloxacin (Cipro 400mg/200ml Dsw) 400 mg in 200 mls @ 200 mls/hr IVPB Q12 JOSE A PRN Reason: Protocol Last Admin: 10/26/17 09:04 Dose: Not Given Metronidazole (Flagyl 500mg/100ml Ns) 100 mls @ 100 mls/hr IVPB Q8 JOSE A PRN Reason: Protocol Last Admin: 10/26/17 17:17 Dose: 100 mls/hr Insulin Human Lispro (Humalog) 0 units SC ACHS JOSE A PRN Reason: Protocol Last Admin: 10/26/17 17:18 Dose: 1 unit Isosorbide Mononitrate (Imdur Er) 30 mg PO DAILY [facility] Last Admin: 10/26/17 09:03 Dose: Not Given Levothyroxine Sodium (Synthroid) 175 mcg PO DAILY@0630 [facility] Last Admin: 10/26/17 09:04 Dose: Not Given Losartan Potassium (Cozaar) 50 mg PO DAILY [facility] Last Admin: 10/26/17 09:03 Dose: Not Given Metformin HCl (Glucophage) 1,000 mg PO BID [facility] Last Admin: 10/26/17 17:18 Dose: Not Given Olopatadine HCl (Patanol 0.1% Opht Soln) 1 drop OU DAILY [facility] Last Admin: 10/26/17 09:04 Dose: Not Given Ondansetron HCl (Zofran Inj) 4 mg IVP Q6 PRN PRN Reason: Nausea/Vomiting Last Admin: 10/25/17 13:10 Dose: 4 mg Pantoprazole Sodium (Protonix Ec Tab) 20 mg PO DAILY [facility] Last Admin: 10/26/17 09:04 Dose: Not Given Pregabalin (Lyrica) 50 mg PO HS [facility] Last Admin: 10/25/17 21:05 Dose: 50 mg Fluticasone/Salmeterol (Advair Diskus 250/50) 1 puff INH BID [facility] Last Admin: 10/26/17 17:18 Dose: Not Given Sitagliptin Phosphate (Januvia) 100 mg PO DAILY [facility] Last Admin: 10/26/17 09:03 Dose: Not Given - Labs Labs: 10/26/17 06:30 10/26/17 06:30 - Constitutional Appears: Non-toxic, No Acute Distress, Other (obese) - Head Exam Head Exam: ATRAUMATIC, NORMAL INSPECTION, NORMOCEPHALIC - Eye Exam Eye Exam: EOMI, Normal appearance, PERRL Pupil Exam: NORMAL ACCOMODATION - ENT Exam ENT Exam: Mucous Membranes Moist, Normal Exam - Neck Exam Neck Exam: Full ROM, Normal Inspection - Respiratory Exam Respiratory Exam: Clear to Ausculation Bilateral, NORMAL BREATHING PATTERN. absent: Rales, Rhonchi, Wheezes - Cardiovascular Exam Cardiovascular Exam: REGULAR RHYTHM, RRR, +S1, +S2. absent: JVD - GI/Abdominal Exam GI & Abdominal Exam: Soft, Normal Bowel Sounds. absent: Distended, Guarding, Tenderness, Rebound - Rectal Exam Rectal Exam: Deferred - Extremities Exam Extremities Exam: Full ROM, Normal Capillary Refill - Neurological Exam Neurological Exam: Alert, Awake, CN II-XII Intact, Oriented x3 - Psychiatric Exam Psychiatric exam: Normal Affect - Skin Skin Exam: Dry, Intact, Pallor, Warm Assessment and Plan - Assessment and Plan (Free Text) Assessment: 86 year old female PMH CAD, HTN, AFib, hypothyroid, diabetes mellitus with one month history of increased dyspnea, normal echo in November,presented to ER for evaluation found to be anemic on admission with H/H 5.8/19.2. 2 UNITS PRBC were transfused 10/22/17 with a third unit transfused 10/23/17. CT abdomen showed diverticulosis and mild acute divericulitis. Patient started on IVF , Cipro and Flagyl. occult blood reported as negative. GI and ID were consulted Patient clinically improving. 1. Anemia Most likely due to bleed from diverticulosis/ diverticulitis s/p 3 units of PRBC total transfused since admission. with Hgb post transfusion 7.8 Plavix and ASA on hold continue Feosol 325 mg PO BID Advair Diskus q12 for dyspnea CXR: No acute disease. No significant interval change compared to the prior examinations will give venofer IV 2. Diverticulitis Abdomen/pelvis CT: Severe diverticulosis affecting descending colon and sigmoid. Mild acute sigmoid diverticulitis Continue Cipro 400mg IV q12 and Flagyl 500 IV q8 IVF with NS advanced diet to regular diet Gi consult appreciated occult blood negative for bleed Will continue Cipro and flagyl for 10 days . Outpatient colonoscopy after 6 weeks 3. HTN labile Continue Lipitor, Imdur, Cozaar, Norvasc incresae Norvasc to 5 mg po daily 4. Afib Rate controlled Continue Amiodarone 5. DJD, shoulder Continue Tylenol prn for pain 6. Hypothyroidism TSH 8.87 Increase Synthroid from 175 mcg to 200 mcg 7. DM type II controlled continue accuchecks, diabetic diet, IRSS Metformin and januvia 8. Depression Citalopram [CeleXA] 10 mg PO DAILY Pregabalin [Lyrica] 50 mg PO HS 9.Hyponetremia Continue IVF 10. DVT Prophylaxis Hold ASA SCDs
[2017-10-27] MEDS: metroNIDAZOLE 500mg/100ml NS 100 ML IVPB SCH ×3 (01:13→18:56)
[2017-10-27] MEDS ORDERED: Sodium Chloride 0.9% 1,000 ML IV SCH (05:45)
[2017-10-27 05:47] LABS: HEMATOCRIT 26.2 % (34.0-47.0); MEAN CELL VOLUME 76.6 fl (81.0-99.0); MEAN CORPUSCULAR HEMOGLOBIN 23.2 pg (27.0-31.0); MEAN CORPUSCULAR HGB CONC 30.3 g/dL (33.0-37.0); RED CELL DISTRIBUTION WIDTH 22.5 % (11.5-14.5); WHITE BLOOD COUNT 8.7 K/uL (4.8-10.8)
[2017-10-27] MEDS: Levothyroxine 200 MCG TAB PO SCH (06:06)
[2017-10-27 06:22] LABS: BLOOD UREA NITROGEN 8 mg/dl (7-17); CARBON DIOXIDE 27 mmol/L (22-30); CHLORIDE 94 mmol/L (98-107); GFR AFRICAN-AMERICAN > 60; GLUCOSE,RANDOM 117 mg/dL (65-105); POTASSIUM 4.5 MMOL/L (3.6-5.0); SODIUM 128 mmol/l (132-148)
[2017-10-27] MEDS: Insulin Lispro (humaLOG) 100 Units/ml Inj SC SCH ×4 (06:47→22:04)
[2017-10-27] MEDS: Fluticasone-Salmeterol 250-50mcg Diskus INH SCH ×2 (08:50→18:20)
[2017-10-27] MEDS: Olopatadine 0.1% Opht SOLN OU SCH (08:51)
[2017-10-27] MEDS: Pantoprazole 20 mg EC Tab PO SCH ×2 (08:52→12:48)
--- NOTE | 2017-10-27 10:10 | CP.PCM.PN ---
Subjective - Date & Time of Evaluation Date of Evaluation: 10/27/17 Time of Evaluation: 10:00 - Subjective Subjective: 87 year old female with PMHx CAD, HTN, AFib, hypothyroid, diabetes mellitus seen at bedside for diverticulosis/diverticulitis. Patient is AAO x 3 and NAD resting comfortably in bed. Patient states that she is feeling well and tolerating her PO intake. She denies N/V/F/C/CP/SOB/calf pain/constipation/ urinary retention. Denies any abdominal pain and states that she has been having regular BMs. No further complaints at this time. Objective - Vital Signs/Intake and Output Vital Signs (last 24 hours): Temp Pulse Resp BP Pulse Ox 99.1 F 80 18 146/60 95 10/27/17 08:00 10/27/17 08:51 10/27/17 08:00 10/27/17 08:51 10/27/17 08:00 - Medications Medications: Current Medications Acetaminophen (Tylenol 325mg Tab) 650 mg PO Q6 PRN PRN Reason: Fever >100.4 F Last Admin: 10/24/17 23:43 Dose: 650 mg Acetaminophen (Tylenol 325mg Tab) 650 mg PO Q6 PRN PRN Reason: Other Last Admin: 10/23/17 08:30 Dose: 650 mg Al Hydrox/Mg Hydrox/Simethicone (Maalox Plus 30 Ml) 30 ml PO Q6 PRN PRN Reason: Indigestion / Heartburn Last Admin: 10/23/17 23:18 Dose: 30 ml Amiodarone HCl (Cordarone) 100 mg PO DAILY [facility] Last Admin: 10/27/17 08:52 Dose: 100 mg Amlodipine Besylate (Norvasc) 5 mg PO DAILY [facility] Last Admin: 10/27/17 08:51 Dose: 5 mg Aspirin (Ecotrin) 81 mg PO DAILY [facility] Atorvastatin Calcium (Lipitor) 40 mg PO DAILY [facility] Last Admin: 10/27/17 08:51 Dose: 40 mg Citalopram Hydrobromide (Celexa) 10 mg PO DAILY [facility] Last Admin: 10/27/17 08:51 Dose: 10 mg Clopidogrel Bisulfate (Plavix) 75 mg PO DAILY [facility] Ferrous Sulfate (Feosol) 325 mg PO BID [facility] Last Admin: 10/27/17 08:51 Dose: 325 mg Hydromorphone HCl (Dilaudid) 0.25 mg IVP Q6 PRN PRN Reason: Pain, severe (8-10) Ciprofloxacin (Cipro 400mg/200ml Dsw) 400 mg in 200 mls @ 200 mls/hr IVPB Q12 JOSE A PRN Reason: Protocol Last Admin: 10/26/17 22:34 Dose: 200 mls/hr Metronidazole (Flagyl 500mg/100ml Ns) 100 mls @ 100 mls/hr IVPB Q8 JOSE A PRN Reason: Protocol Last Admin: 10/27/17 01:13 Dose: 100 mls/hr Sodium Chloride (Sodium Chloride 0.9%) 1,000 mls @ 80 mls/hr IV .[id number] [facility] Stop: 10/28/17 05:36 Last Admin: 10/27/17 06:05 Dose: 80 mls/hr Insulin Human Lispro (Humalog) 0 units SC ACHS JOSE A PRN Reason: Protocol Last Admin: 10/27/17 06:47 Dose: Not Given Isosorbide Mononitrate (Imdur Er) 30 mg PO DAILY [facility] Last Admin: 10/27/17 08:51 Dose: 30 mg Levothyroxine Sodium (Synthroid) 200 mcg PO DAILY@0630 [facility] Last Admin: 10/27/17 06:06 Dose: 200 mcg Losartan Potassium (Cozaar) 50 mg PO DAILY [facility] Last Admin: 10/27/17 08:50 Dose: 50 mg Metformin HCl (Glucophage) 1,000 mg PO BID [facility] Last Admin: 10/27/17 08:51 Dose: 1,000 mg Olopatadine HCl (Patanol 0.1% Opht Soln) 1 drop OU DAILY [facility] Last Admin: 10/27/17 08:51 Dose: 1 drop Ondansetron HCl (Zofran Inj) 4 mg IVP Q6 PRN PRN Reason: Nausea/Vomiting Last Admin: 10/25/17 13:10 Dose: 4 mg Pantoprazole Sodium (Protonix Ec Tab) 20 mg PO DAILY [facility] Last Admin: 10/27/17 08:52 Dose: 20 mg Pregabalin (Lyrica) 50 mg PO HS [facility] Last Admin: 10/26/17 21:19 Dose: 50 mg Fluticasone/Salmeterol (Advair Diskus 250/50) 1 puff INH BID [facility] Last Admin: 10/27/17 08:50 Dose: 1 puff Sitagliptin Phosphate (Januvia) 100 mg PO DAILY [facility] Last Admin: 10/27/17 08:51 Dose: 100 mg - Labs Labs: 10/27/17 04:20 10/27/17 04:20 - Constitutional Appears: Well, Non-toxic, No Acute Distress - Head Exam Head Exam: ATRAUMATIC, NORMOCEPHALIC - Eye Exam Eye Exam: EOMI, PERRL Pupil Exam: PERRL - ENT Exam ENT Exam: Mucous Membranes Moist - Neck Exam Neck Exam: Normal Inspection. absent: Tenderness - Respiratory Exam Respiratory Exam: Clear to Ausculation Bilateral, NORMAL BREATHING PATTERN. absent: Rales, Rhonchi, Wheezes - Cardiovascular Exam Cardiovascular Exam: REGULAR RHYTHM. absent: JVD - GI/Abdominal Exam GI & Abdominal Exam: Soft. absent: Firm, Guarding, Rigid - Rectal Exam Rectal Exam: Deferred - Extremities Exam Extremities Exam: Normal Inspection - Neurological Exam Neurological Exam: Alert, Awake, Oriented x3 - Psychiatric Exam Psychiatric exam: Normal Affect, Normal Mood - Skin Skin Exam: Intact, Normal Color, Warm Assessment and Plan - Assessment and Plan (Free Text) Assessment: 86 year old female PMH CAD, HTN, AFib, hypothyroid, diabetes mellitus with one month history of increased dyspnea, normal echo in November,presented to ER for evaluation found to be anemic on admission with H/H 5.8/19.2. 2 UNITS PRBC were transfused 10/22/17 with a third unit transfused 10/23/17. CT abdomen showed diverticulosis and mild acute divericulitis. Patient started on IVF , Cipro and Flagyl. occult blood reported as negative. GI and ID were consulted. Patient clinically improving, denies any abdominal pain today Plan: 1. Anemia Most likely due to bleed from diverticulosis/ diverticulitis s/p 3 units of PRBC total transfused since admission and one dose Venofer given yesterday H/H 8.0/26.2 Plavix and ASA on hold continue Feosol 325 mg PO BID Advair Diskus q12 for dyspnea CXR: No acute disease. No significant interval change compared to the prior examinations will give venofer IV 2. Diverticulitis Abdomen/pelvis CT: Severe diverticulosis affecting descending colon and sigmoid. Mild acute sigmoid diverticulitis Continue Cipro 400mg IV q12 and Flagyl 500 IV q8 Dilaudid for pain prn Ova and parasite stool sample: negative IVF with NS Consistent carbohydrate diet GI consult appreciated occult blood negative for bleed Will continue Cipro and flagyl for 10 days . Outpatient colonoscopy after 6 weeks 3. HTN labile BP 146/60 Continue Lipitor, Imdur, Cozaar, Norvasc 4. Afib Rate controlled Continue Amiodarone 5. DJD, shoulder Continue Tylenol prn for pain 6. Hypothyroidism Continue Synthroid 7. DM type II glucose 117 Metformin and januvia controlled continue accuchecks, diabetic diet, IRSS 8. Depression Citalopram [CeleXA] 10 mg PO DAILY Pregabalin [Lyrica] 50 mg PO HS 9. Hyponatremia Continue IVF 10. DVT Prophylaxis Hold ASA, hold plavix SCDs
--- NOTE | 2017-10-27 10:24 | CP.PCM.DIS ---
Provider - Provider Date of Admission: 10/22/17 16:09 Attending physician: Yane Bond DO Hospital Course - Lab Results Lab Results: Micro Results 10/26/17 09:45 Stool Ova and Parasite Concentrate Exam - Final 10/24/17 23:59 Blood-Venous Blood Culture - Preliminary NO GROWTH AFTER 24 HOURS 10/24/17 23:45 Blood-Venous Blood Culture - Preliminary NO GROWTH AFTER 24 HOURS Most Recent Lab Values WBC 8.7 K/uL (4.8-10.8) 10/27/17 04:20 RBC 3.42 Mil/uL (3.80-5.20) L 10/27/17 04:20 Hgb 8.0 g/dL (12.0-16.0) L 10/27/17 04:20 Hct 26.2 % (34.0-47.0) L 10/27/17 04:20 MCV 76.6 fl (81.0-99.0) L 10/27/17 04:20 MCH 23.2 pg (27.0-31.0) L 10/27/17 04:20 MCHC 30.3 g/dL (33.0-37.0) L 10/27/17 04:20 RDW 22.5 % (11.5-14.5) H 10/27/17 04:20 Plt Count 245 K/uL (130-400) 10/27/17 04:20 MPV 7.9 fl (7.2-11.7) 10/26/17 06:30 Neut % (Auto) 75.8 % (50.0-75.0) H 10/26/17 06:30 Lymph % (Auto) 12.8 % (20.0-40.0) L 10/26/17 06:30 Lucas % (Auto) 10.2 % (0.0-10.0) H 10/26/17 06:30 Eos % (Auto) 0.7 % (0.0-4.0) 10/26/17 06:30 Baso % (Auto) 0.5 % (0.0-2.0) 10/26/17 06:30 Neut # 7.1 K/uL (1.8-7.0) H 10/26/17 06:30 Lymph # 1.2 K/uL (1.0-4.3) 10/26/17 06:30 Lucas # 1.0 K/uL (0.0-0.8) H 10/26/17 06:30 Eos # 0.1 K/uL (0.0-0.7) 10/26/17 06:30 Baso # 0.0 K/uL (0.0-0.2) 10/26/17 06:30 Retic Count 3.0 % (0.5-1.5) H D 10/23/17 08:30 Haptoglobin 136 mg/dL (43-212) 10/23/17 09:46 Sodium 128 mmol/l (132-148) L 10/27/17 04:20 Potassium 4.5 MMOL/L (3.6-5.0) 10/27/17 04:20 Chloride 94 mmol/L (98-107) L 10/27/17 04:20 Carbon Dioxide 27 mmol/L (22-30) 10/27/17 04:20 Anion Gap 12 (10-20) 10/27/17 04:20 BUN 8 mg/dl (7-17) 10/27/17 04:20 Creatinine 0.6 mg/dl (0.7-1.2) L 10/27/17 04:20 Est GFR ( Amer) > 60 10/27/17 04:20 Est GFR (Non-Af Amer) > 60 10/27/17 04:20 POC Glucose (mg/dL) 136 mg/dL (65-110) H 10/26/17 21:12 Random Glucose 117 mg/dL (65-105) H 10/27/17 04:20 Calcium 8.0 mg/dL (8.4-10.2) L 10/27/17 04:20 Phosphorus 3.9 mg/dl (2.5-4.5) 10/24/17 21:05 Magnesium 2.2 MG/DL (1.6-2.3) 10/24/17 21:05 Iron 94 ug/dL (37-170) 10/23/17 08:30 TIBC 440 ug/dL (250-450) 10/23/17 08:30 % Saturation 21 % (20-55) 10/23/17 08:30 Ferritin 5.2 ng/Ml (11.1-264.0) L 10/23/17 02:15 Lactate Dehydrogenase 491 U/L (313-618) 10/23/17 09:46 Troponin I < 0.0120 ng/mL (0.00-0.120) 10/23/17 02:15 NT-Pro-B Natriuret Pep 1030 pg/ml (0-900) H 10/22/17 13:50 Free T4 1.12 ng/dL (0.78-2.19) 10/24/17 04:45 Free T3 pg/mL 1.93 pg/mL (2.77-5.27) L 10/24/17 04:45 TSH 3rd Generation 8.87 mIU/ML (0.46-4.68) H 10/23/17 10:06 Urine Color Yellow (YELLOW) 10/22/17 15:35 Urine Clarity Clear (Clear) 10/22/17 15:35 Urine pH 7.0 (5.0-8.0) 10/22/17 15:35 Ur Specific Thayer 1.011 (1.003-1.030) 10/22/17 15:35 Urine Protein Negative mg/dL (NEGATIVE) 10/22/17 15:35 Urine Glucose (UA) Neg mg/dL (Normal) 10/22/17 15:35 Urine Ketones Negative mg/dL (NEGATIVE) 10/22/17 15:35 Urine Blood Negative (NEGATIVE) 10/22/17 15:35 Urine Nitrate Negative (NEGATIVE) 10/22/17 15:35 Urine Bilirubin Negative (NEGATIVE) 10/22/17 15:35 Urine Urobilinogen 0.2-1.0 mg/dL (0.2-1.0) 10/22/17 15:35 Ur Leukocyte Esterase Trace Olvin/uL (Negative) 10/22/17 15:35 Urine RBC (Auto) 1 /hpf (0-3) 10/22/17 15:35 Urine Microscopic WBC 1 /hpf (0-5) 10/22/17 15:35 Ur Squamous Epith Cells < 1 /hpf (0-5) 10/22/17 15:35 Stool Occult Blood Negative (NEGATIVE) 10/26/17 09:45 C. difficile Ag & Toxin Negative (NEGATIVE) 10/25/17 17:48 Blood Type O NEGATIVE 10/22/17 15:35 Antibody Screen Positive 10/22/17 15:35 Antibody Identification Anti D 10/22/17 15:35 Crossmatch See Detail 10/22/17 15:35 BBK History Checked Patient has bt 10/22/17 15:35 - Hospital Course Hospital Course: 86 year old female PMH CAD, HTN, AFib, hypothyroid, diabetes mellitus with one month history of increased dyspnea, normal echo in November,presented to ER for evaluation found to be anemic on admission with H/H 5.8/19.2. 2 UNITS PRBC were transfused 10/22/17 with a third unit transfused 10/23/17. CT abdomen showed diverticulosis and mild acute divericulitis. Patient started on IVF , Cipro and Flagyl. Occult blood reported as negative. GI and ID were consulted. Patient clinically improved.Advise to continue Cipro and flagyl Po for total 10 days . Colonoscopy as outpatient in 6 weeks.Received Venofer IV and will continue Ferrous sulfate Po . can resume Asa and plavix since there is no active bleed. 1. Anemia Most likely due to bleed from diverticulosis/ diverticulitis. No active bleed at present, occult blood is negative s/p 3 units of PRBC total transfused since admission. with Hgb post transfusion 8 Plavix and ASA were held . since there is no active bleed can resume Given Venofer IV continue Feosol 325 mg PO BID Colonoscopy as outpatient 2. Diverticulitis Abdomen/pelvis CT: Severe diverticulosis affecting descending colon and sigmoid. Mild acute sigmoid diverticulitis Received Cipro 400mg IV q12 and Flagyl 500 IV q8 for IVF with NS advanced diet to regular diet GI consult appreciated occult blood negative for bleed Will continue Cipro and flagyl for 10 days . Outpatient colonoscopy after 6 weeks 3. HTN labile Continue Lipitor, Imdur, Cozaar, Norvasc increased Norvasc to 5 mg po daily 4. Paroxysmal Afib SR Continue Amiodarone not on anticoagulation due to anemia 5. DJD, shoulder Continue Tylenol prn for pain 6. Hypothyroidism TSH 8.87 Increased Synthroid from 175 mcg to 200 mcg 7. DM type II controlled continue accuchecks, diabetic diet, IRSS Metformin and januvia 8. Depression Citalopram [CeleXA] 10 mg PO DAILY Pregabalin [Lyrica] 50 mg PO HS 9.Hyponetremia Na 128 PO fluid intake 10. DVT Prophylaxis SCDs Discharge Exam - Head Exam Head Exam: ATRAUMATIC, NORMOCEPHALIC - Eye Exam Eye Exam: EOMI, Normal appearance, PERRL Pupil Exam: NORMAL ACCOMODATION - ENT Exam ENT Exam: Mucous Membranes Moist, Normal Exam - Neck Exam Neck exam: Full Rom, Normal Inspection - Respiratory Exam Respiratory Exam: NORMAL BREATHING PATTERN. absent: Rales, Rhonchi, Wheezes Discharge Plan - Follow Up Plan Condition: STABLE Disposition: TRANSF TO SNF Instructions: Anemia (DC) Referrals: Easton Chen MD [Medical Doctor] -
[2017-10-27 11:11] LABS: ABG ALLEN TEST YES; ARTERIAL BLOOD GAS HCO3 25.6 mmol/L (21-28); ARTERIAL BLOOD GAS O2 CAPACITY 11.4 mL/dL (16-24); ARTERIAL BLOOD GAS O2 CONTENT 11.4 ML/dL (15-23); ARTERIAL BLOOD GAS PH 7.28 (7.35-7.45); ARTERIAL BLOOD GAS PO2 111 mm/Hg (80-100); ARTERIAL BLOOD HGB O2 SAT 96.7 % (95.0-98.0); CARBOXYHEMOGLOBIN 2.4 % (0.5-1.5); HHB 0.2 % (0.0-5.0); METHEMOGLOBIN 0.7 % (0.0-3.0)
--- NOTE | 2017-10-27 11:15 | CP.PCM.PN ---
Subjective - Date & Time of Evaluation Date of Evaluation: 10/27/17 Time of Evaluation: 09:00 - Subjective Subjective: events noted cultures so far neg in blood cont rx Objective - Vital Signs/Intake and Output Vital Signs (last 24 hours): Temp Pulse Resp BP Pulse Ox 99.1 F 80 18 146/60 95 10/27/17 08:00 10/27/17 08:51 10/27/17 08:00 10/27/17 08:51 10/27/17 08:00 - Medications Medications: Current Medications Acetaminophen (Tylenol 325mg Tab) 650 mg PO Q6 PRN PRN Reason: Fever >100.4 F Last Admin: 10/24/17 23:43 Dose: 650 mg Acetaminophen (Tylenol 325mg Tab) 650 mg PO Q6 PRN PRN Reason: Other Last Admin: 10/23/17 08:30 Dose: 650 mg Al Hydrox/Mg Hydrox/Simethicone (Maalox Plus 30 Ml) 30 ml PO Q6 PRN PRN Reason: Indigestion / Heartburn Last Admin: 10/23/17 23:18 Dose: 30 ml Amiodarone HCl (Cordarone) 100 mg PO DAILY [facility] Last Admin: 10/27/17 08:52 Dose: 100 mg Amlodipine Besylate (Norvasc) 5 mg PO DAILY [facility] Last Admin: 10/27/17 08:51 Dose: 5 mg Aspirin (Ecotrin) 81 mg PO DAILY [facility] Atorvastatin Calcium (Lipitor) 40 mg PO DAILY [facility] Last Admin: 10/27/17 08:51 Dose: 40 mg Citalopram Hydrobromide (Celexa) 10 mg PO DAILY [facility] Last Admin: 10/27/17 08:51 Dose: 10 mg Clopidogrel Bisulfate (Plavix) 75 mg PO DAILY [facility] Ferrous Sulfate (Feosol) 325 mg PO BID [facility] Last Admin: 10/27/17 08:51 Dose: 325 mg Hydromorphone HCl (Dilaudid) 0.25 mg IVP Q6 PRN PRN Reason: Pain, severe (8-10) Ciprofloxacin (Cipro 400mg/200ml Dsw) 400 mg in 200 mls @ 200 mls/hr IVPB Q12 JOSE A PRN Reason: Protocol Last Admin: 10/26/17 22:34 Dose: 200 mls/hr Metronidazole (Flagyl 500mg/100ml Ns) 100 mls @ 100 mls/hr IVPB Q8 JOSE A PRN Reason: Protocol Last Admin: 10/27/17 01:13 Dose: 100 mls/hr Sodium Chloride (Sodium Chloride 0.9%) 1,000 mls @ 80 mls/hr IV .[id number] [facility] Stop: 10/28/17 05:36 Last Admin: 10/27/17 06:05 Dose: 80 mls/hr Insulin Human Lispro (Humalog) 0 units SC ACHS JOSE A PRN Reason: Protocol Last Admin: 10/27/17 06:47 Dose: Not Given Isosorbide Mononitrate (Imdur Er) 30 mg PO DAILY [facility] Last Admin: 10/27/17 08:51 Dose: 30 mg Levothyroxine Sodium (Synthroid) 200 mcg PO DAILY@0630 [facility] Last Admin: 10/27/17 06:06 Dose: 200 mcg Losartan Potassium (Cozaar) 50 mg PO DAILY [facility] Last Admin: 10/27/17 08:50 Dose: 50 mg Metformin HCl (Glucophage) 1,000 mg PO BID [facility] Last Admin: 10/27/17 08:51 Dose: 1,000 mg Olopatadine HCl (Patanol 0.1% Opht Soln) 1 drop OU DAILY [facility] Last Admin: 10/27/17 08:51 Dose: 1 drop Ondansetron HCl (Zofran Inj) 4 mg IVP Q6 PRN PRN Reason: Nausea/Vomiting Last Admin: 10/25/17 13:10 Dose: 4 mg Pantoprazole Sodium (Protonix Ec Tab) 20 mg PO DAILY [facility] Last Admin: 10/27/17 08:52 Dose: 20 mg Pregabalin (Lyrica) 50 mg PO HS [facility] Last Admin: 10/26/17 21:19 Dose: 50 mg Fluticasone/Salmeterol (Advair Diskus 250/50) 1 puff INH BID [facility] Last Admin: 10/27/17 08:50 Dose: 1 puff Sitagliptin Phosphate (Januvia) 100 mg PO DAILY [facility] Last Admin: 10/27/17 08:51 Dose: 100 mg - Labs Labs: 10/27/17 04:20 10/27/17 04:20 - Constitutional Appears: Confused, Cachectic, Chronically Ill - Head Exam Head Exam: NORMOCEPHALIC - Eye Exam Eye Exam: PERRL - ENT Exam ENT Exam: Mucous Membranes Dry - Neck Exam Neck Exam: absent: Lymphadenopathy - Respiratory Exam Respiratory Exam: Decreased Breath Sounds - Cardiovascular Exam Cardiovascular Exam: REGULAR RHYTHM - GI/Abdominal Exam GI & Abdominal Exam: Distended, Soft Assessment and Plan (1) Chronic congestive heart failure Status: Acute (2) Anemia Status: Chronic (3) CHF (congestive heart failure) Status: Acute (4) COPD (chronic obstructive pulmonary disease) Status: Acute (5) Diverticulitis Status: Acute
--- NOTE | 2017-10-27 11:19 | CP.PCM.PN ---
Subjective - Date & Time of Evaluation Date of Evaluation: 10/27/17 Time of Evaluation: 10:00 - Subjective Subjective: Patient seen and examined bedside.Lethargic today, responds to verbal stimuli. No acute issues overnight De saturating 88% in RA , 93-95 % on 4 L of O2 via NC ABG ph 7.28 PCO2 60 PO2 111 Discussed with family and requesting PT Objective - Vital Signs/Intake and Output Vital Signs (last 24 hours): Temp Pulse Resp BP Pulse Ox 99.1 F 80 18 146/60 95 10/27/17 08:00 10/27/17 08:51 10/27/17 08:00 10/27/17 08:51 10/27/17 08:00 - Medications Medications: Current Medications Acetaminophen (Tylenol 325mg Tab) 650 mg PO Q6 PRN PRN Reason: Fever >100.4 F Last Admin: 10/24/17 23:43 Dose: 650 mg Acetaminophen (Tylenol 325mg Tab) 650 mg PO Q6 PRN PRN Reason: Other Last Admin: 10/23/17 08:30 Dose: 650 mg Al Hydrox/Mg Hydrox/Simethicone (Maalox Plus 30 Ml) 30 ml PO Q6 PRN PRN Reason: Indigestion / Heartburn Last Admin: 10/23/17 23:18 Dose: 30 ml Amiodarone HCl (Cordarone) 100 mg PO DAILY [facility] Last Admin: 10/27/17 08:52 Dose: 100 mg Amlodipine Besylate (Norvasc) 5 mg PO DAILY [facility] Last Admin: 10/27/17 08:51 Dose: 5 mg Aspirin (Ecotrin) 81 mg PO DAILY [facility] Atorvastatin Calcium (Lipitor) 40 mg PO DAILY [facility] Last Admin: 10/27/17 08:51 Dose: 40 mg Citalopram Hydrobromide (Celexa) 10 mg PO DAILY [facility] Last Admin: 10/27/17 08:51 Dose: 10 mg Clopidogrel Bisulfate (Plavix) 75 mg PO DAILY [facility] Ferrous Sulfate (Feosol) 325 mg PO BID [facility] Last Admin: 10/27/17 08:51 Dose: 325 mg Hydromorphone HCl (Dilaudid) 0.25 mg IVP Q6 PRN PRN Reason: Pain, severe (8-10) Ciprofloxacin (Cipro 400mg/200ml Dsw) 400 mg in 200 mls @ 200 mls/hr IVPB Q12 JOSE A PRN Reason: Protocol Last Admin: 10/26/17 22:34 Dose: 200 mls/hr Metronidazole (Flagyl 500mg/100ml Ns) 100 mls @ 100 mls/hr IVPB Q8 JOSE A PRN Reason: Protocol Last Admin: 10/27/17 01:13 Dose: 100 mls/hr Sodium Chloride (Sodium Chloride 0.9%) 1,000 mls @ 80 mls/hr IV .[id number] [facility] Stop: 10/28/17 05:36 Last Admin: 10/27/17 06:05 Dose: 80 mls/hr Insulin Human Lispro (Humalog) 0 units SC ACHS JOSE A PRN Reason: Protocol Last Admin: 10/27/17 06:47 Dose: Not Given Isosorbide Mononitrate (Imdur Er) 30 mg PO DAILY [facility] Last Admin: 10/27/17 08:51 Dose: 30 mg Levothyroxine Sodium (Synthroid) 200 mcg PO DAILY@0630 [facility] Last Admin: 10/27/17 06:06 Dose: 200 mcg Losartan Potassium (Cozaar) 50 mg PO DAILY [facility] Last Admin: 10/27/17 08:50 Dose: 50 mg Metformin HCl (Glucophage) 1,000 mg PO BID [facility] Last Admin: 10/27/17 08:51 Dose: 1,000 mg Olopatadine HCl (Patanol 0.1% Opht Soln) 1 drop OU DAILY [facility] Last Admin: 10/27/17 08:51 Dose: 1 drop Ondansetron HCl (Zofran Inj) 4 mg IVP Q6 PRN PRN Reason: Nausea/Vomiting Last Admin: 10/25/17 13:10 Dose: 4 mg Pantoprazole Sodium (Protonix Ec Tab) 20 mg PO DAILY [facility] Last Admin: 10/27/17 08:52 Dose: 20 mg Pregabalin (Lyrica) 50 mg PO HS [facility] Last Admin: 10/26/17 21:19 Dose: 50 mg Fluticasone/Salmeterol (Advair Diskus 250/50) 1 puff INH BID [facility] Last Admin: 10/27/17 08:50 Dose: 1 puff Sitagliptin Phosphate (Januvia) 100 mg PO DAILY [facility] Last Admin: 10/27/17 08:51 Dose: 100 mg - Labs Labs: 10/27/17 04:20 10/27/17 04:20 - Constitutional Appears: Non-toxic, No Acute Distress, Other (lethargic) - Head Exam Head Exam: ATRAUMATIC, NORMAL INSPECTION, NORMOCEPHALIC - Eye Exam Eye Exam: EOMI, Normal appearance, PERRL Pupil Exam: NORMAL ACCOMODATION - ENT Exam ENT Exam: Mucous Membranes Moist, Normal Exam - Neck Exam Neck Exam: Full ROM, Normal Inspection - Respiratory Exam Respiratory Exam: Clear to Ausculation Bilateral, NORMAL BREATHING PATTERN. absent: Rhonchi, Wheezes, Respiratory Distress - Cardiovascular Exam Cardiovascular Exam: REGULAR RHYTHM, RRR, +S1, +S2. absent: JVD - GI/Abdominal Exam GI & Abdominal Exam: Soft, Normal Bowel Sounds. absent: Distended, Guarding, Tenderness, Rebound - Rectal Exam Rectal Exam: Deferred - Extremities Exam Extremities Exam: Full ROM, Normal Capillary Refill, Normal Inspection. absent : Pedal Edema - Neurological Exam Additional comments: lethargic , responds to verbal command, opens eyes - Skin Skin Exam: Dry, Intact, Warm Assessment and Plan - Assessment and Plan (Free Text) Assessment: 86 year old female PMH CAD, HTN, AFib, hypothyroid, diabetes mellitus with one month history of increased dyspnea, normal echo in November,presented to ER for evaluation found to be anemic on admission with H/H 5.8/19.2. 2 UNITS PRBC were transfused 10/22/17 with a third unit transfused 10/23/17. CT abdomen showed diverticulosis and mild acute divericulitis. Patient started on IVF , Cipro and Flagyl. Occult blood reported as negative. GI and ID were consulted. Patient clinically improving , tolerating pO intake.Advised to continue Cipro and flagyl for total 10 days . Colonoscopy as outpatient in 6 weeks.Received Venofer IV and started on Ferrous sulfate Po . Lethargic today , responding to verbal command. ABG showed ph 7.28 PCO2 60. Patient has sleep apnea and has not been using CPAP while in hospital.Pulmonary consulted and placed on Bipap. Family concerned about patient being to weak to go home and requesting ZURDO. 1. Acute hypercarbic respiratory failure ABG ph 7.28 PO@ [address] Bipap 08/14//30% pulmonary consulted 2. Anemia Most likely due to bleed from diverticulosis/ diverticulitis. No active bleed at present, occult blood is negative s/p 3 units of PRBC total transfused since admission, with Hgb post transfusion 8 Plavix and ASA were held . Since there is no active bleed can resume Given Venofer IV continue Feosol 325 mg PO BID Colonoscopy as outpatient 3. Diverticulitis Abdomen/pelvis CT: Severe diverticulosis affecting descending colon and sigmoid. Mild acute sigmoid diverticulitis Received Cipro 400mg IV q12 and Flagyl 500 IV q8 for IVF with NS advanced diet to regular diet GI consult appreciated occult blood negative for bleed Will continue Cipro and flagyl for 10 days . Outpatient colonoscopy after 6 weeks 4. HTN labile Continue Lipitor, Imdur, Cozaar, Norvasc increased Norvasc to 5 mg po daily 5. Paroxysmal Afib SR Continue Amiodarone not on anticoagulation due to anemia 6. DJD, shoulder Continue Tylenol prn for pain 7. Hypothyroidism TSH 8.87 Increased Synthroid from 175 mcg to 200 mcg 8. DM type II controlled continue accuchecks, diabetic diet, IRSS Metformin and januvia 9. Depression Citalopram [CeleXA] 10 mg PO DAILY Pregabalin [Lyrica] 50 mg PO HS 9.Hyponetremia Na 128 restrict PO fluid intake ? medication side effect 10. DVT Prophylaxis SCDs
[2017-10-27] MEDS: Ciprofloxacin 400mg/200ml D5W 400 MG/200 ML BAG IVPB SCH ×2 (12:43→21:57)
[2017-10-28] MEDS: metroNIDAZOLE 500mg/100ml NS 100 ML IVPB SCH ×3 (00:33→17:23)
[2017-10-28] MEDS: Levothyroxine 200 MCG TAB PO SCH (06:28)
[2017-10-28] MEDS: Insulin Lispro (humaLOG) 100 Units/ml Inj SC SCH ×4 (06:32→22:46)
[2017-10-28] MEDS: Ciprofloxacin 400mg/200ml D5W 400 MG/200 ML BAG IVPB SCH ×2 (09:25→21:35)
--- NOTE | 2017-10-28 09:31 | CP.PCM.CON ---
History of Present Illness - History of Present Illness History of Present Illness: This 87-year-old [place]vian-speaking female with a long-standing history of bronchial asthma and obstructive sleep apnea presented to the emergency department on 121 complaining of shortness of breath and was found to be severely anemic with a hemoglobin of 5.8 g. She was transfused 3 units packed red blood cells upon admission to the hospital and was found to have acute sigmoid diverticulitis. Coincidental finding on the CT scan of the abdomen and pelvis was a small bilateral pleural effusions which had not been present on previous scans in the past. Her hemoglobin level did improve to 7.8 g and she was being treated with dual antibiotics for her diverticulitis. Her dyspnea appeared to improve as her hemoglobin increased. She does have a history of obstructive sleep apnea and has not been using her nasal CPAP as directed. During her hospital stay she became obtunded and arterial blood gas was requested which showed acute hypercapnic respiratory acidosis. Noninvasive positive pressure ventilation using BiPAP mask was requested as was pulmonary consultation. Her past medical history includes diabetes mellitus, hypertension, hypothyroidism, degenerative disc disease as well as degenerative joint disease and hyperlipidemia. As mentioned above she does have some obstructive sleep apnea which was diagnosed with polysomnography as well as restless leg syndrome. Her past surgical history includes a lumbar laminectomy in the remote past as well as hysterectomy. She suffers from no drug allergies and there are also no known seasonal allergies. She did smoke casually when she was young for a short period of time. Alcohol intake is minimal and there is no history of illicit drug use. Family history includes thyroid disease, diabetes, bronchial asthma, hyperlipidemia, osteoarthritis. Past Patient History - Infectious Disease Hx of Infectious Diseases: None - Past Medical History & Family History Past Medical History?: Yes - Past Social History Smoking Status: Never Smoked - CARDIAC Hx Atrial Fibrillation: Yes Hx Congestive Heart Failure: Yes Hx Hypercholesterolemia: Yes Hx Hypertension: Yes - PULMONARY Hx Asthma: Yes Hx Bronchitis: Yes Hx Chronic Obstructive Pulmonary Disease (COPD): Yes Hx Pneumonia: Yes Hx Sleep Apnea: Yes - NEUROLOGICAL Hx Neurological Disorder: No - HEENT Hx HEENT Problems: No - RENAL Hx Chronic Kidney Disease: No - ENDOCRINE/METABOLIC Hx Hyperthyroidism: Yes Hx Hypothyroidism: Yes - HEMATOLOGICAL/ONCOLOGICAL Hx Human Immunodeficiency Virus (HIV): No - INTEGUMENTARY Hx Dermatological Problems: No - MUSCULOSKELETAL/RHEUMATOLOGICAL Hx Arthritis: Yes - GASTROINTESTINAL Hx Diverticulitis: Yes - GENITOURINARY/GYNECOLOGICAL Hx Genitourinary Disorders: No - PSYCHIATRIC Hx Psychophysiologic Disorder: No Hx Substance Use: No - SURGICAL HISTORY Hx Cholecystectomy: Yes Hx Coronary Artery Bypass Graft: No - ANESTHESIA Hx Anesthesia: Yes Hx Anesthesia Reactions: No Hx Malignant Hyperthermia: No Meds Home Medications: Home Medication List Medication Instructions Recorded Confirmed Type Acetaminophen [Tylenol 325mg tab] 650 mg PO Q6 PRN tab 10/27/17 Rx Aluminum Hydroxide/Magnesium 30 ml PO Q6 PRN udc 10/27/17 Rx [Maalox Plus 30 ml] Ciprofloxacin HCl [Cipro] 250 mg PO Q12 #14 tab 10/27/17 Rx Ferrous Sulfate [Feosol] 325 mg PO BID tab 10/27/17 Rx Levothyroxine [Synthroid] 200 mcg PO DAILY@0630 tab 10/27/17 Rx Metronidazole [Flagyl] 500 mg PO TID #21 tab 10/27/17 Rx amLODIPine [Norvasc] 5 mg PO DAILY tab 10/27/17 Rx Allergies/Adverse Reactions: Allergies Allergy/AdvReac Type Severity Reaction Status Date / Time No Known Allergies Allergy Verified 10/22/17 12:46 - Medications Medications: Current Medications Acetaminophen (Tylenol 325mg Tab) 650 mg PO Q6 PRN PRN Reason: Fever >100.4 F Last Admin: 10/24/17 23:43 Dose: 650 mg Acetaminophen (Tylenol 325mg Tab) 650 mg PO Q6 PRN PRN Reason: Other Last Admin: 10/23/17 08:30 Dose: 650 mg Al Hydrox/Mg Hydrox/Simethicone (Maalox Plus 30 Ml) 30 ml PO Q6 PRN PRN Reason: Indigestion / Heartburn Last Admin: 10/23/17 23:18 Dose: 30 ml Amiodarone HCl (Cordarone) 100 mg PO DAILY [facility] Last Admin: 10/27/17 12:44 Dose: Not Given Amlodipine Besylate (Norvasc) 5 mg PO DAILY [facility] Last Admin: 10/27/17 12:44 Dose: Not Given Aspirin (Ecotrin) 81 mg PO DAILY [facility] Atorvastatin Calcium (Lipitor) 40 mg PO DAILY [facility] Last Admin: 10/27/17 08:51 Dose: 40 mg Citalopram Hydrobromide (Celexa) 10 mg PO DAILY [facility] Last Admin: 10/27/17 12:47 Dose: Not Given Clopidogrel Bisulfate (Plavix) 75 mg PO DAILY [facility] Ferrous Sulfate (Feosol) 325 mg PO BID [facility] Last Admin: 10/27/17 18:20 Dose: Not Given Ciprofloxacin (Cipro 400mg/200ml Dsw) 400 mg in 200 mls @ 200 mls/hr IVPB Q12 JOSE A PRN Reason: Protocol Last Admin: 10/27/17 21:57 Dose: 200 mls/hr Metronidazole (Flagyl 500mg/100ml Ns) 100 mls @ 100 mls/hr IVPB Q8 JOSE A PRN Reason: Protocol Last Admin: 10/28/17 00:33 Dose: 100 mls/hr Insulin Human Lispro (Humalog) 0 units SC ACHS JOSE A PRN Reason: Protocol Last Admin: 10/28/17 06:32 Dose: Not Given Isosorbide Mononitrate (Imdur Er) 30 mg PO DAILY [facility] Last Admin: 10/27/17 12:48 Dose: Not Given Levothyroxine Sodium (Synthroid) 200 mcg PO DAILY@0630 [facility] Last Admin: 10/28/17 06:28 Dose: 200 mcg Losartan Potassium (Cozaar) 50 mg PO DAILY [facility] Last Admin: 10/27/17 12:44 Dose: Not Given Metformin HCl (Glucophage) 1,000 mg PO BID [facility] Last Admin: 10/27/17 18:23 Dose: Not Given Olopatadine HCl (Patanol 0.1% Opht Soln) 1 drop OU DAILY [facility] Last Admin: 10/27/17 08:51 Dose: 1 drop Ondansetron HCl (Zofran Inj) 4 mg IVP Q6 PRN PRN Reason: Nausea/Vomiting Last Admin: 10/25/17 13:10 Dose: 4 mg Pantoprazole Sodium (Protonix Ec Tab) 20 mg PO DAILY [facility] Last Admin: 10/27/17 12:48 Dose: Not Given Pregabalin (Lyrica) 50 mg PO HS [facility] Last Admin: 10/27/17 22:01 Dose: 50 mg Fluticasone/Salmeterol (Advair Diskus 250/50) 1 puff INH BID [facility] Last Admin: 10/27/17 18:20 Dose: Not Given Sitagliptin Phosphate (Januvia) 100 mg PO DAILY [facility] Last Admin: 10/27/17 12:48 Dose: Not Given Physical Exam - Additional Findings Additional findings: Somnolent, difficult to awake. Not in any respiratory distress. No cyanosis, trace dependant edema. Pharynx is pink and moist. Nares are patent bilaterally, no bleeding. Neck is supple and trachea midline. No JVD or carotid bruit. Left carotid upstroke appears slightly blunted compared to right. No palpable cervical or axillary adenopathy. No dullness or subcut emphysema anterior chest wall. Breath sounds are present bilaterally, diminished. Few dependant dry rales and sonorous rhonchi bilaterally. No audible wheezing or bronchial breathing. Heart sounds well heard, rhythm is regular, no murmur heard. Abdomen is fleshy, obese and non-tender with good bowel sounds. Results - Vital Signs Recent Vital Signs: Last Vital Signs Temp 97.5 F L 10/28/17 07:54 Pulse 79 10/28/17 07:54 Resp 18 10/28/17 07:54 BP 174/70 H 10/28/17 07:54 Pulse Ox 96 10/28/17 07:54 - Labs Result Diagrams: 10/29/17 04:30 10/29/17 04:30 Labs: Laboratory Results - last 24 hr 10/27/17 10/27/17 10/27/17 05:31 10:38 11:51 pCO2 60 H pO2 111 H HCO3 25.6 ABG pH 7.28 L ABG Total CO2 30.0 H ABG O2 Saturation 99.8 H ABG O2 Content 11.4 L ABG Base Excess 0.9 ABG Hemoglobin 8.2 L ABG Carboxyhemoglobin 2.4 H POC ABG HHb (Measured) 0.2 ABG Methemoglobin 0.7 ABG O2 Capacity 11.4 L Fredi Test Yes A-a O2 Difference 71.0 Hgb O2 Saturation 96.7 FiO2 36.0 POC Glucose (mg/dL) 116 H 114 H 10/27/17 10/27/17 10/28/17 16:24 21:30 05:42 pCO2 pO2 HCO3 ABG pH ABG Total CO2 ABG O2 Saturation ABG O2 Content ABG Base Excess ABG Hemoglobin ABG Carboxyhemoglobin POC ABG HHb (Measured) ABG Methemoglobin ABG O2 Capacity Fredi Test A-a O2 Difference Hgb O2 Saturation FiO2 POC Glucose (mg/dL) 112 H 93 96 Assessment & Plan (1) Acute hypercapnic respiratory failure due to obstructive sleep apnea Status: Acute Priority: High (2) Diverticulitis Status: Acute Priority: High (3) Asthma Status: Chronic Priority: High (4) Hypertension Status: Chronic Priority: Medium (5) Hypothyroidism Status: Chronic Priority: Medium (6) Diabetes mellitus, type II Status: Chronic Priority: High - Assessment and Plan (Free Text) Plan: Her oxygenation did improve with the use of noninvasive positive pressure ventilation but the patient did become agitated and continued removing the mask overnight. She was ultimately switched to high flow nasal cannula which appears to have had positive effects as well. Any sedating medication should be avoided at this point in time and a follow-up arterial blood gas will be required to assess effectiveness of the current regimen. - Date & Time Date: 10/28/17 Time: 09:31
[2017-10-28] MEDS: Fluticasone-Salmeterol 250-50mcg Diskus INH SCH (09:49)
[2017-10-28] MEDS: Pantoprazole 20 mg EC Tab PO SCH (09:49)
[2017-10-28] MEDS: Olopatadine 0.1% Opht SOLN OU SCH (09:56)
[2017-10-28] MEDS: Albuterol-Ipratrop 3 mg / 0.5 (3 ml) UD INH SCH ×3 (11:03→19:05)
[2017-10-28 11:04] LABS: HEMATOCRIT 25.5 % (34.0-47.0); MEAN CELL VOLUME 76.7 fl (81.0-99.0); MEAN CORPUSCULAR HEMOGLOBIN 23.4 pg (27.0-31.0); MEAN CORPUSCULAR HGB CONC 30.5 g/dL (33.0-37.0); RED CELL DISTRIBUTION WIDTH 23.4 % (11.5-14.5); WHITE BLOOD COUNT 7.2 K/uL (4.8-10.8)
[2017-10-28 11:18] LABS: BLOOD UREA NITROGEN 6 mg/dl (7-17); CALCIUM 7.9 mg/dL (8.4-10.2); CARBON DIOXIDE 26 mmol/L (22-30); CHLORIDE 95 mmol/L (98-107); GFR AFRICAN-AMERICAN > 60; GLUCOSE,RANDOM 142 mg/dL (65-105); POTASSIUM 3.9 MMOL/L (3.6-5.0); SODIUM 128 mmol/l (132-148)
[2017-10-28 12:10] LABS: ABG ALLEN TEST YES; ARTERIAL BLOOD GAS HCO3 27.2 mmol/L (21-28); ARTERIAL BLOOD GAS O2 CAPACITY 11.1 mL/dL (16-24); ARTERIAL BLOOD GAS PH 7.41 (7.35-7.45); ARTERIAL BLOOD GAS PO2 82 mm/Hg (80-100); ARTERIAL BLOOD HGB O2 SAT 96.2 % (95.0-98.0); CARBOXYHEMOGLOBIN 2.2 % (0.5-1.5); HHB 0.7 % (0.0-5.0); METHEMOGLOBIN 0.8 % (0.0-3.0)
--- NOTE | 2017-10-28 12:32 | CP.PCM.CON ---
History of Present Illness - History of Present Illness History of Present Illness: This patient who is 87 years of age I was called to see her for hyponatremia. The history was taken from the medical records because the patient has not given much history she appeared to be tired and cannot give much history at the present. indicated the patient admitted with shortness of breath and severe anemia required blood transfusi among other things as noted and diagnosed to have diverticulitis she was treated with multiple antibiotics. And her sodium Dropping down slowly but surely. With a history of sleep apnea patient receiving oxygen. past medical history includes diabetes mellitus, hypertension, hypothyroidism, degenerative disc disease as well as degenerative joint disease and hyperlipidemia. As mentioned above she does have some obstructive sleep apnea which was diagnosed with polysomnography as well as restless leg syndrome. Her past surgical history includes a lumbar laminectomy in the remote past as well as hysterectomy. She suffers from no drug allergies and there are also no known seasonal allergies. She did smoke casually when she was young for a short period of time. Alcohol intake is minimal and there is no history of illicit drug use. Family history includes thyroid disease, diabetes, bronchial asthma, hyperlipidemia, osteoarthritis. Review of Systems - Review of Systems Systems not reviewed;Unavailable: Respiratory Distress - Constitutional Constitutional: Anorexia. absent: Chills - EENT Eyes: As Per HPI Nose/Mouth/Throat: As Per HPI. absent: Nasal Discharge, Nose Pain - Cardiovascular Cardiovascular: Dyspnea. absent: Chest Pain, Leg Edema, Leg Ulcers - Respiratory Respiratory: Dyspnea on Exertion, Chest Congestion. absent: Hemoptysis - Gastrointestinal Gastrointestinal: Abdominal Pain. absent: Bloating, Coffee Ground Emesis, Vomiting - Musculoskeletal Musculoskeletal: Muscle Weakness. absent: Back Pain, Numbness - Neurological Neurological: Weakness. absent: Confusion, Focal Weakness - Psychiatric Psychiatric: As Per HPI - Hematologic/Lymphatic Hematologic: absent: Easy Bleeding Past Patient History - Infectious Disease Hx of Infectious Diseases: None - Past Medical History & Family History Past Medical History?: Yes - Past Social History Smoking Status: Never Smoked - CARDIAC Hx Atrial Fibrillation: Yes Hx Congestive Heart Failure: Yes Hx Hypercholesterolemia: Yes Hx Hypertension: Yes - PULMONARY Hx Asthma: Yes Hx Bronchitis: Yes Hx Chronic Obstructive Pulmonary Disease (COPD): Yes Hx Pneumonia: Yes Hx Sleep Apnea: Yes - NEUROLOGICAL Hx Neurological Disorder: No - HEENT Hx HEENT Problems: No - RENAL Hx Chronic Kidney Disease: No - ENDOCRINE/METABOLIC Hx Hyperthyroidism: Yes Hx Hypothyroidism: Yes - HEMATOLOGICAL/ONCOLOGICAL Hx Human Immunodeficiency Virus (HIV): No - INTEGUMENTARY Hx Dermatological Problems: No - MUSCULOSKELETAL/RHEUMATOLOGICAL Hx Arthritis: Yes - GASTROINTESTINAL Hx Diverticulitis: Yes - GENITOURINARY/GYNECOLOGICAL Hx Genitourinary Disorders: No - PSYCHIATRIC Hx Psychophysiologic Disorder: No Hx Substance Use: No - SURGICAL HISTORY Hx Cholecystectomy: Yes Hx Coronary Artery Bypass Graft: No - ANESTHESIA Hx Anesthesia: Yes Hx Anesthesia Reactions: No Hx Malignant Hyperthermia: No Meds Home Medications: Home Medication List Medication Instructions Recorded Confirmed Type Acetaminophen [Tylenol 325mg tab] 650 mg PO Q6 PRN tab 10/27/17 Rx Aluminum Hydroxide/Magnesium 30 ml PO Q6 PRN udc 10/27/17 Rx [Maalox Plus 30 ml] Ciprofloxacin HCl [Cipro] 250 mg PO Q12 #14 tab 10/27/17 Rx Ferrous Sulfate [Feosol] 325 mg PO BID tab 10/27/17 Rx Levothyroxine [Synthroid] 200 mcg PO DAILY@0630 tab 10/27/17 Rx Metronidazole [Flagyl] 500 mg PO TID #21 tab 10/27/17 Rx amLODIPine [Norvasc] 5 mg PO DAILY tab 10/27/17 Rx Allergies/Adverse Reactions: Allergies Allergy/AdvReac Type Severity Reaction Status Date / Time No Known Allergies Allergy Verified 10/22/17 12:46 - Medications Medications: Current Medications Acetaminophen (Tylenol 325mg Tab) 650 mg PO Q6 PRN PRN Reason: Fever >100.4 F Last Admin: 10/24/17 23:43 Dose: 650 mg Acetaminophen (Tylenol 325mg Tab) 650 mg PO Q6 PRN PRN Reason: Other Last Admin: 10/23/17 08:30 Dose: 650 mg Al Hydrox/Mg Hydrox/Simethicone (Maalox Plus 30 Ml) 30 ml PO Q6 PRN PRN Reason: Indigestion / Heartburn Last Admin: 10/23/17 23:18 Dose: 30 ml Albuterol/Ipratropium (Duoneb 3 Mg/0.5 Mg (3 Ml) Ud) 3 ml INH RQID [facility] Last Admin: 10/28/17 11:03 Dose: 3 ml Amiodarone HCl (Cordarone) 100 mg PO DAILY [facility] Last Admin: 10/28/17 09:48 Dose: 100 mg Amlodipine Besylate (Norvasc) 5 mg PO DAILY [facility] Last Admin: 10/28/17 09:55 Dose: 5 mg Aspirin (Ecotrin) 81 mg PO DAILY [facility] Atorvastatin Calcium (Lipitor) 40 mg PO DAILY [facility] Last Admin: 10/28/17 09:50 Dose: 40 mg Citalopram Hydrobromide (Celexa) 10 mg PO DAILY [facility] Last Admin: 10/28/17 09:49 Dose: 10 mg Clopidogrel Bisulfate (Plavix) 75 mg PO DAILY [facility] Ferrous Sulfate (Feosol) 325 mg PO BID [facility] Last Admin: 10/28/17 09:50 Dose: 325 mg Ciprofloxacin (Cipro 400mg/200ml Dsw) 400 mg in 200 mls @ 200 mls/hr IVPB Q12 [facility] PRN Reason: Protocol Last Admin: 10/27/17 21:57 Dose: 200 mls/hr Metronidazole (Flagyl 500mg/100ml Ns) 100 mls @ 100 mls/hr IVPB Q8 [facility] PRN Reason: Protocol Last Admin: 10/28/17 09:51 Dose: 100 mls/hr Insulin Human Lispro (Humalog) 0 units SC ACHS [facility] PRN Reason: Protocol Last Admin: 10/28/17 06:32 Dose: Not Given Isosorbide Mononitrate (Imdur Er) 30 mg PO DAILY [facility] Last Admin: 10/28/17 09:49 Dose: 30 mg Levothyroxine Sodium (Synthroid) 200 mcg PO DAILY@0630 [facility] Last Admin: 10/28/17 06:28 Dose: 200 mcg Losartan Potassium (Cozaar) 50 mg PO DAILY [facility] Last Admin: 10/28/17 09:55 Dose: 50 mg Metformin HCl (Glucophage) 1,000 mg PO BID [facility] Last Admin: 10/28/17 09:50 Dose: Not Given Olopatadine HCl (Patanol 0.1% Opht Soln) 1 drop OU DAILY [facility] Last Admin: 10/28/17 09:56 Dose: 1 drop Ondansetron HCl (Zofran Inj) 4 mg IVP Q6 PRN PRN Reason: Nausea/Vomiting Last Admin: 10/25/17 13:10 Dose: 4 mg Pantoprazole Sodium (Protonix Ec Tab) 20 mg PO DAILY [facility] Last Admin: 10/28/17 09:49 Dose: 20 mg Sitagliptin Phosphate (Januvia) 100 mg PO DAILY [facility] Last Admin: 10/28/17 09:55 Dose: Not Given Physical Exam - Constitutional Appears: No Acute Distress - ENT Exam ENT Exam: Mucous Membranes Moist - Neck Exam Neck exam: Negative for: Lymphadenopathy - Respiratory Exam Respiratory Exam: Rhonchi, NORMAL BREATHING PATTERN. absent: Chest Wall Tenderness - Cardiovascular Exam Cardiovascular Exam: absent: Gallop, JVD, Rubs - GI/Abdominal Exam GI & Abdominal Exam: Guarding, Normal Bowel Sounds, Soft - Extremities Exam Extremities exam: Negative for: calf tenderness - Back Exam Back exam: absent: CVA tenderness (L), CVA tenderness (R) - Neurological Exam Neurological exam: Alert - Skin Skin Exam: Intact Results - Vital Signs Recent Vital Signs: Last Vital Signs Temp 97.3 F L 10/28/17 12:06 Pulse 64 10/28/17 12:06 Resp 18 10/28/17 12:06 BP 129/66 10/28/17 12:06 Pulse Ox 96 10/28/17 12:06 - Labs Result Diagrams: 10/28/17 10:30 10/28/17 10:30 Labs: Laboratory Results - last 24 hr 10/27/17 10/27/17 10/28/17 16:24 21:30 05:42 WBC RBC Hgb Hct MCV MCH MCHC RDW Plt Count pCO2 pO2 HCO3 ABG pH ABG Total CO2 ABG O2 Saturation ABG O2 Content ABG Base Excess ABG Hemoglobin ABG Carboxyhemoglobin POC ABG HHb (Measured) ABG Methemoglobin ABG O2 Capacity Fredi Test A-a O2 Difference Hgb O2 Saturation FiO2 Sodium Potassium Chloride Carbon Dioxide Anion Gap BUN Creatinine Est GFR ( Amer) Est GFR (Non-Af Amer) POC Glucose (mg/dL) 112 H 93 96 Random Glucose Calcium 10/28/17 10/28/17 10/28/17 10:30 10:30 11:15 WBC 7.2 RBC 3.33 L Hgb 7.8 L Hct 25.5 L MCV 76.7 L MCH 23.4 L MCHC 30.5 L RDW 23.4 H Plt Count 229 pCO2 pO2 HCO3 ABG pH ABG Total CO2 ABG O2 Saturation ABG O2 Content ABG Base Excess ABG Hemoglobin ABG Carboxyhemoglobin POC ABG HHb (Measured) ABG Methemoglobin ABG O2 Capacity Fredi Test A-a O2 Difference Hgb O2 Saturation FiO2 Sodium 128 L Potassium 3.9 Chloride 95 L Carbon Dioxide 26 Anion Gap 11 BUN 6 L Creatinine 0.5 L Est GFR ( Amer) > 60 Est GFR (Non-Af Amer) > 60 POC Glucose (mg/dL) 127 H Random Glucose 142 H Calcium 7.9 L 10/28/17 11:38 WBC RBC Hgb Hct MCV MCH MCHC RDW Plt Count pCO2 44 pO2 82 HCO3 27.2 ABG pH 7.41 ABG Total CO2 29.3 H ABG O2 Saturation 99.3 H ABG O2 Content 11.0 L ABG Base Excess 2.9 ABG Hemoglobin 8.0 L ABG Carboxyhemoglobin 2.2 H POC ABG HHb (Measured) 0.7 ABG Methemoglobin 0.8 ABG O2 Capacity 11.1 L Fredi Test Yes A-a O2 Difference 77.0 Hgb O2 Saturation 96.2 FiO2 30.0 Sodium Potassium Chloride Carbon Dioxide Anion Gap BUN Creatinine Est GFR ( Amer) Est GFR (Non-Af Amer) POC Glucose (mg/dL) Random Glucose Calcium Assessment & Plan - Assessment and Plan (Free Text) Assessment: Patient admitted with severe anemia requiring blood transfusion diagnosed with diverticulitis receiving multiple antibiotics I was called to see for hyponatremia also noted mild hypokalemia etiology not clear at this point. My recommendation to change IV fluid to normal saline #1. #2 to mixed all intravenous antibiotics and medication was normal saline #3 to get spot urine force osmolarity and sodium. #4 repeat BMP for tomorrow I am more worried follow-up with you. thanks
--- NOTE | 2017-10-28 12:35 | CP.PCM.PN ---
Subjective - Date & Time of Evaluation Date of Evaluation: 10/28/17 Time of Evaluation: 12:17 - Subjective Subjective: 87 year old female seen at bedside for diverticulosis/diverticulitis. Patient states that she is still having trouble breathing. Denies any abdominal or flank pain. States that she has had regular bowel movements but that she hasn't eaten in the last day because she has a hard time breathing when she eats. Denies any further complaints. Denies N/V/F/C/CP/posterior calf pain/ constipation/urinary retention Objective - Vital Signs/Intake and Output Vital Signs (last 24 hours): Temp Pulse Resp BP Pulse Ox 97.3 F L 64 18 129/66 96 10/28/17 12:06 10/28/17 12:06 10/28/17 12:06 10/28/17 12:06 10/28/17 12:06 - Medications Medications: Current Medications Acetaminophen (Tylenol 325mg Tab) 650 mg PO Q6 PRN PRN Reason: Fever >100.4 F Last Admin: 10/24/17 23:43 Dose: 650 mg Acetaminophen (Tylenol 325mg Tab) 650 mg PO Q6 PRN PRN Reason: Other Last Admin: 10/23/17 08:30 Dose: 650 mg Al Hydrox/Mg Hydrox/Simethicone (Maalox Plus 30 Ml) 30 ml PO Q6 PRN PRN Reason: Indigestion / Heartburn Last Admin: 10/23/17 23:18 Dose: 30 ml Albuterol/Ipratropium (Duoneb 3 Mg/0.5 Mg (3 Ml) Ud) 3 ml INH RQID [facility] Last Admin: 10/28/17 11:03 Dose: 3 ml Amiodarone HCl (Cordarone) 100 mg PO DAILY [facility] Last Admin: 10/28/17 09:48 Dose: 100 mg Amlodipine Besylate (Norvasc) 5 mg PO DAILY [facility] Last Admin: 10/28/17 09:55 Dose: 5 mg Aspirin (Ecotrin) 81 mg PO DAILY [facility] Atorvastatin Calcium (Lipitor) 40 mg PO DAILY [facility] Last Admin: 10/28/17 09:50 Dose: 40 mg Citalopram Hydrobromide (Celexa) 10 mg PO DAILY [facility] Last Admin: 10/28/17 09:49 Dose: 10 mg Clopidogrel Bisulfate (Plavix) 75 mg PO DAILY [facility] Ferrous Sulfate (Feosol) 325 mg PO BID [facility] Last Admin: 10/28/17 09:50 Dose: 325 mg Ciprofloxacin (Cipro 400mg/200ml Dsw) 400 mg in 200 mls @ 200 mls/hr IVPB Q12 [facility] PRN Reason: Protocol Last Admin: 10/27/17 21:57 Dose: 200 mls/hr Metronidazole (Flagyl 500mg/100ml Ns) 100 mls @ 100 mls/hr IVPB Q8 [facility] PRN Reason: Protocol Last Admin: 10/28/17 09:51 Dose: 100 mls/hr Insulin Human Lispro (Humalog) 0 units SC ACHS [facility] PRN Reason: Protocol Last Admin: 10/28/17 06:32 Dose: Not Given Isosorbide Mononitrate (Imdur Er) 30 mg PO DAILY [facility] Last Admin: 10/28/17 09:49 Dose: 30 mg Levothyroxine Sodium (Synthroid) 200 mcg PO DAILY@0630 [facility] Last Admin: 10/28/17 06:28 Dose: 200 mcg Losartan Potassium (Cozaar) 50 mg PO DAILY [facility] Last Admin: 10/28/17 09:55 Dose: 50 mg Metformin HCl (Glucophage) 1,000 mg PO BID [facility] Last Admin: 10/28/17 09:50 Dose: Not Given Olopatadine HCl (Patanol 0.1% Opht Soln) 1 drop OU DAILY [facility] Last Admin: 10/28/17 09:56 Dose: 1 drop Ondansetron HCl (Zofran Inj) 4 mg IVP Q6 PRN PRN Reason: Nausea/Vomiting Last Admin: 10/25/17 13:10 Dose: 4 mg Pantoprazole Sodium (Protonix Ec Tab) 20 mg PO DAILY [facility] Last Admin: 10/28/17 09:49 Dose: 20 mg Pregabalin (Lyrica) 50 mg PO HS [facility] Last Admin: 10/27/17 22:01 Dose: 50 mg Sitagliptin Phosphate (Januvia) 100 mg PO DAILY [facility] Last Admin: 10/28/17 09:55 Dose: Not Given - Labs Labs: 10/28/17 10:30 10/28/17 10:30 - Constitutional Appears: Well, Non-toxic, No Acute Distress - Head Exam Head Exam: ATRAUMATIC, NORMOCEPHALIC - Eye Exam Eye Exam: EOMI, PERRL Pupil Exam: PERRL - ENT Exam ENT Exam: Mucous Membranes Moist - Neck Exam Neck Exam: absent: Tenderness - Respiratory Exam Respiratory Exam: Clear to Ausculation Bilateral, NORMAL BREATHING PATTERN - Cardiovascular Exam Cardiovascular Exam: REGULAR RHYTHM - GI/Abdominal Exam GI & Abdominal Exam: Soft. absent: Firm, Guarding, Rigid, Tenderness - Rectal Exam Rectal Exam: Deferred - Extremities Exam Extremities Exam: Normal Inspection. absent: Calf Tenderness - Neurological Exam Neurological Exam: Alert, Awake, Oriented x3 - Psychiatric Exam Psychiatric exam: Normal Affect, Normal Mood - Skin Skin Exam: Intact, Normal Color, Warm Assessment and Plan - Assessment and Plan (Free Text) Assessment: 86 year old female PMH CAD, HTN, AFib, hypothyroid, diabetes mellitus with one month history of increased dyspnea, normal echo in November,presented to ER for evaluation found to be anemic on admission with H/H 5.8/19.2. 2 UNITS PRBC were transfused 10/22/17 with a third unit transfused 10/23/17. CT abdomen showed diverticulosis and mild acute divericulitis. Patient started on IVF , Cipro and Flagyl. Occult blood reported as negative. GI and ID were consulted. Patient clinically improving , tolerating pO intake.Advised to continue Cipro and flagyl for total 10 days . Colonoscopy as outpatient in 6 weeks.Received Venofer IV and started on Ferrous sulfate Po . Less lethargic today , responding to verbal command. ABG showed ph 7.28 PCO2 60 on 10/27. Patient has sleep apnea and has not been using CPAP while in hospital.Pulmonary consulted and placed on Bipap 10/27. PCO2 44 on 10/28 . Repeat ABG Patient for TCU today or tomorrow pending ABG. Plan: 1. Acute hypercarbic respiratory failure ABG ph 7.41 PO@ [address] Bipap 08/14//30% pulmonary consulted 2. Anemia Most likely due to bleed from diverticulosis/ diverticulitis. No active bleed at present, occult blood is negative s/p 3 units of PRBC total transfused since admission H/H 7.8/25.5 Plavix and ASA held continue Feosol 325 mg PO BID Colonoscopy as outpatient 3. Diverticulitis Abdomen/pelvis CT: Severe diverticulosis affecting descending colon and sigmoid. Mild acute sigmoid diverticulitis Received Cipro 400mg IV q12 and Flagyl 500 IV q8 for advanced diet to consistent carb diet GI consult appreciated occult blood negative for bleed Stool culture: No salmonella, shigella, or campylobacter isolated Will continue Cipro and flagyl for 10 days . Outpatient colonoscopy after 6 weeks 4. HTN labile Continue Lipitor, Imdur, Cozaar, Norvasc 5. Paroxysmal Afib SR Continue Amiodarone not on anticoagulation due to anemia (Hold plavix, ASA) 6. DJD, shoulder Continue Tylenol prn for pain 7. Hypothyroidism TSH 8.87 Increased Synthroid from 175 mcg to 200 mcg 8. DM type II controlled continue accuchecks, diabetic diet, IRSS Metformin, humalog and januvia 9. Depression Hold Citalopram [CeleXA] 10 mg PO DAILY - HOLD DC Pregabalin [Lyrica] 50 mg PO HS 9.Hyponetremia Na 128 restrict PO fluid intake ? medication side effect Monitor 10. DVT Prophylaxis SCDs
[2017-10-29] MEDS: metroNIDAZOLE 500mg/100ml NS 100 ML IVPB SCH ×3 (00:46→17:00)
[2017-10-29 05:28] LABS: HEMATOCRIT 25.4 % (34.0-47.0); MEAN CELL VOLUME 77.6 fl (81.0-99.0); MEAN CORPUSCULAR HEMOGLOBIN 23.8 pg (27.0-31.0); MEAN CORPUSCULAR HGB CONC 30.7 g/dL (33.0-37.0); RED CELL DISTRIBUTION WIDTH 24.4 % (11.5-14.5); WHITE BLOOD COUNT 7.3 K/uL (4.8-10.8)
[2017-10-29 05:59] LABS: BLOOD UREA NITROGEN 4 mg/dl (7-17); CALCIUM 7.9 mg/dL (8.4-10.2); CARBON DIOXIDE 28 mmol/L (22-30); CHLORIDE 92 mmol/L (98-107); GFR AFRICAN-AMERICAN > 60; GLUCOSE,RANDOM 117 mg/dL (65-105); POTASSIUM 3.7 MMOL/L (3.6-5.0); SODIUM 128 mmol/l (132-148)
[2017-10-29] MEDS: Levothyroxine 100 MCG TAB PO SCH (06:16)
[2017-10-29] MEDS: Insulin Lispro (humaLOG) 100 Units/ml Inj SC SCH ×4 (06:36→22:00)
[2017-10-29] MEDS ORDERED: Albuterol-Ipratrop 3 mg / 0.5 (3 ml) UD INH STA (06:56)
[2017-10-29] MEDS: Albuterol-Ipratrop 3 mg / 0.5 (3 ml) UD INH SCH ×4 (07:41→19:16)
[2017-10-29 08:32] LABS: CREATININE, RANDOM URINE 105.1 mg/dL
[2017-10-29] MEDS: Olopatadine 0.1% Opht SOLN OU SCH (09:00)
[2017-10-29] MEDS: Pantoprazole 20 mg EC Tab PO SCH (09:00)
[2017-10-29] MEDS: Ciprofloxacin 400mg/200ml D5W 400 MG/200 ML BAG IVPB SCH ×2 (09:00→20:53)
--- NOTE | 2017-10-29 09:24 | CP.PCM.PN ---
Subjective - Date & Time of Evaluation Date of Evaluation: 10/29/17 Time of Evaluation: 09:22 - Subjective Subjective: Interim events reviewed. High-Flow discontinued yesterday after repeat ABG showed improved ABG. Placed on BiPAP mask ventilation for the overnight and removed by the patient this AM at 6. Placed back on nasal canula at 3LPM, SpO2 now 99%. Asleep, fairly easily awakened, seems tired but not confused. No cyanosis, extremities are warm and pink. Neck is supple and trachea midline. Breath sounds are present bilaterally with scattered rhonchi, no wheezes or bronchial breath sounds. Dry rales are present in the lower lobes bilaterally. Heart sounds are distant, rhythm regular at 70BPM. Will request followup ABG this morning on 3 LPM nasal canula. If satisfactory, this regimen can be continued with overnight NPPV and daytime regular nasal canula. I don't think there has been a pulmonary embolism, but this should be ruled out , and she is awaiting a CTA of the lungs. Celexa has been put on hold, and any other sedating meds should be avoided if possible. Her hemoglobin remains stable at 7.8GM. She is on PO iron supplement. Nephrology input appreciated as well. Objective - Vital Signs/Intake and Output Vital Signs (last 24 hours): Temp Pulse Resp BP Pulse Ox 97.4 F L 82 20 160/65 H 97 10/29/17 08:00 10/29/17 08:00 10/29/17 08:00 10/29/17 08:00 10/29/17 08:00 - Medications Medications: Current Medications Acetaminophen (Tylenol 325mg Tab) 650 mg PO Q6 PRN PRN Reason: Fever >100.4 F Last Admin: 10/24/17 23:43 Dose: 650 mg Acetaminophen (Tylenol 325mg Tab) 650 mg PO Q6 PRN PRN Reason: Other Last Admin: 10/23/17 08:30 Dose: 650 mg Al Hydrox/Mg Hydrox/Simethicone (Maalox Plus 30 Ml) 30 ml PO Q6 PRN PRN Reason: Indigestion / Heartburn Last Admin: 10/23/17 23:18 Dose: 30 ml Albuterol/Ipratropium (Duoneb 3 Mg/0.5 Mg (3 Ml) Ud) 3 ml INH RQID [facility] Last Admin: 10/29/17 07:41 Dose: Not Given Amiodarone HCl (Cordarone) 100 mg PO DAILY [facility] Last Admin: 10/28/17 09:48 Dose: 100 mg Amlodipine Besylate (Norvasc) 5 mg PO DAILY [facility] Last Admin: 10/28/17 09:55 Dose: 5 mg Aspirin (Ecotrin) 81 mg PO DAILY [facility] Atorvastatin Calcium (Lipitor) 40 mg PO DAILY [facility] Last Admin: 10/28/17 09:50 Dose: 40 mg Citalopram Hydrobromide (Celexa) 10 mg PO DAILY [facility] Last Admin: 10/28/17 09:49 Dose: 10 mg Clopidogrel Bisulfate (Plavix) 75 mg PO DAILY [facility] Ferrous Sulfate (Feosol) 325 mg PO BID [facility] Last Admin: 10/28/17 17:23 Dose: 325 mg Ciprofloxacin (Cipro 400mg/200ml Dsw) 400 mg in 200 mls @ 200 mls/hr IVPB Q12 [facility] PRN Reason: Protocol Last Admin: 10/28/17 21:35 Dose: 200 mls/hr Metronidazole (Flagyl 500mg/100ml Ns) 100 mls @ 100 mls/hr IVPB Q8 [facility] PRN Reason: Protocol Last Admin: 10/29/17 00:46 Dose: 100 mls/hr Insulin Human Lispro (Humalog) 0 units SC ACHS [facility] PRN Reason: Protocol Last Admin: 10/29/17 06:36 Dose: Not Given Isosorbide Mononitrate (Imdur Er) 30 mg PO DAILY [facility] Last Admin: 10/28/17 09:49 Dose: 30 mg Levothyroxine Sodium (Synthroid) 200 mcg PO DAILY@0630 [facility] Last Admin: 10/29/17 06:16 Dose: 200 mcg Losartan Potassium (Cozaar) 50 mg PO DAILY [facility] Last Admin: 10/28/17 09:55 Dose: 50 mg Metformin HCl (Glucophage) 1,000 mg PO BID [facility] Last Admin: 10/28/17 17:23 Dose: 1,000 mg Olopatadine HCl (Patanol 0.1% Opht Soln) 1 drop OU DAILY [facility] Last Admin: 10/28/17 09:56 Dose: 1 drop Ondansetron HCl (Zofran Inj) 4 mg IVP Q6 PRN PRN Reason: Nausea/Vomiting Last Admin: 10/25/17 13:10 Dose: 4 mg Pantoprazole Sodium (Protonix Ec Tab) 20 mg PO DAILY [facility] Last Admin: 10/28/17 09:49 Dose: 20 mg Sitagliptin Phosphate (Januvia) 100 mg PO DAILY [facility] Last Admin: 10/28/17 09:55 Dose: Not Given - Labs Labs: 10/29/17 04:30 10/29/17 04:30 Assessment and Plan (1) Acute hypercapnic respiratory failure due to obstructive sleep apnea Status: Acute (2) Diverticulitis Status: Acute (3) Asthma Status: Chronic (4) Hypertension Status: Chronic (5) Hypothyroidism Status: Chronic (6) Diabetes mellitus, type II Status: Chronic
[2017-10-29 10:02] LABS: ABG ALLEN TEST YES; ARTERIAL BLOOD GAS HCO3 28.8 mmol/L (21-28); ARTERIAL BLOOD GAS O2 CAPACITY 11.7 mL/dL (16-24); ARTERIAL BLOOD GAS O2 CONTENT 11.6 ML/dL (15-23); ARTERIAL BLOOD GAS PO2 96 mm/Hg (80-100); ARTERIAL BLOOD HGB O2 SAT 96.7 % (95.0-98.0); CARBOXYHEMOGLOBIN 1.9 % (0.5-1.5); HHB 0.6 % (0.0-5.0); METHEMOGLOBIN 0.8 % (0.0-3.0)
--- NOTE | 2017-10-29 12:35 | CP.PCM.PN ---
Subjective - Date & Time of Evaluation Date of Evaluation: 10/29/17 Time of Evaluation: 12:18 - Subjective Subjective: 87 year old female seen at bedside for diverticulosis/diverticulitis. Patient is seen with nasal canula in place. Patient states that she is no longer having trouble breathing. Denies any abdominal or flank pain. States that she has had regular bowel movements but that she hasn't eaten in the last day because she continues to have a hard time breathing when she eats. Denies any further complaints. Denies N/V/F/C/CP/posterior calf pain/constipation/urinary retention Objective - Vital Signs/Intake and Output Vital Signs (last 24 hours): Temp Pulse Resp BP Pulse Ox 97.4 F L 82 20 160/65 H 97 10/29/17 08:00 10/29/17 09:00 10/29/17 08:00 10/29/17 09:00 10/29/17 08:00 - Medications Medications: Current Medications Acetaminophen (Tylenol 325mg Tab) 650 mg PO Q6 PRN PRN Reason: Fever >100.4 F Last Admin: 10/24/17 23:43 Dose: 650 mg Acetaminophen (Tylenol 325mg Tab) 650 mg PO Q6 PRN PRN Reason: Other Last Admin: 10/23/17 08:30 Dose: 650 mg Al Hydrox/Mg Hydrox/Simethicone (Maalox Plus 30 Ml) 30 ml PO Q6 PRN PRN Reason: Indigestion / Heartburn Last Admin: 10/23/17 23:18 Dose: 30 ml Albuterol/Ipratropium (Duoneb 3 Mg/0.5 Mg (3 Ml) Ud) 3 ml INH RQID [facility] Last Admin: 10/29/17 11:29 Dose: 3 ml Amiodarone HCl (Cordarone) 100 mg PO DAILY [facility] Last Admin: 10/29/17 09:00 Dose: 100 mg Amlodipine Besylate (Norvasc) 5 mg PO DAILY [facility] Last Admin: 10/28/17 09:55 Dose: 5 mg Aspirin (Ecotrin) 81 mg PO DAILY [facility] Atorvastatin Calcium (Lipitor) 40 mg PO DAILY [facility] Last Admin: 10/29/17 09:00 Dose: 40 mg Citalopram Hydrobromide (Celexa) 10 mg PO DAILY [facility] Last Admin: 10/28/17 09:49 Dose: 10 mg Clopidogrel Bisulfate (Plavix) 75 mg PO DAILY [facility] Ferrous Sulfate (Feosol) 325 mg PO BID [facility] Last Admin: 10/29/17 09:00 Dose: 325 mg Ciprofloxacin (Cipro 400mg/200ml Dsw) 400 mg in 200 mls @ 200 mls/hr IVPB Q12 [facility] PRN Reason: Protocol Last Admin: 10/29/17 09:00 Dose: 200 mls/hr Metronidazole (Flagyl 500mg/100ml Ns) 100 mls @ 100 mls/hr IVPB Q8 [facility] PRN Reason: Protocol Last Admin: 10/29/17 09:00 Dose: 100 mls/hr Insulin Human Lispro (Humalog) 0 units SC ACHS [facility] PRN Reason: Protocol Last Admin: 10/29/17 06:36 Dose: Not Given Isosorbide Mononitrate (Imdur Er) 30 mg PO DAILY [facility] Last Admin: 10/29/17 09:00 Dose: 30 mg Levothyroxine Sodium (Synthroid) 200 mcg PO DAILY@0630 [facility] Last Admin: 10/29/17 06:16 Dose: 200 mcg Losartan Potassium (Cozaar) 50 mg PO DAILY [facility] Last Admin: 10/29/17 09:00 Dose: 50 mg Metformin HCl (Glucophage) 1,000 mg PO BID [facility] Last Admin: 10/29/17 09:00 Dose: 1,000 mg Olopatadine HCl (Patanol 0.1% Opht Soln) 1 drop OU DAILY [facility] Last Admin: 10/29/17 09:00 Dose: 1 drop Ondansetron HCl (Zofran Inj) 4 mg IVP Q6 PRN PRN Reason: Nausea/Vomiting Last Admin: 10/25/17 13:10 Dose: 4 mg Pantoprazole Sodium (Protonix Ec Tab) 20 mg PO DAILY [facility] Last Admin: 10/29/17 09:00 Dose: 20 mg Sitagliptin Phosphate (Januvia) 100 mg PO DAILY [facility] Last Admin: 10/29/17 09:00 Dose: 100 mg - Labs Labs: 10/29/17 04:30 10/29/17 04:30 - Constitutional Appears: Well, Non-toxic, No Acute Distress - Head Exam Head Exam: ATRAUMATIC, NORMOCEPHALIC - Eye Exam Eye Exam: EOMI, PERRL Pupil Exam: PERRL - ENT Exam ENT Exam: Mucous Membranes Moist - Neck Exam Neck Exam: Normal Inspection. absent: Tenderness - Respiratory Exam Respiratory Exam: Clear to Ausculation Bilateral, NORMAL BREATHING PATTERN - Cardiovascular Exam Cardiovascular Exam: REGULAR RHYTHM - GI/Abdominal Exam GI & Abdominal Exam: Soft. absent: Distended, Firm, Guarding, Rigid - Rectal Exam Rectal Exam: Deferred - Extremities Exam Extremities Exam: Normal Inspection - Neurological Exam Neurological Exam: Alert, Awake, Oriented x3 - Psychiatric Exam Psychiatric exam: Normal Affect, Normal Mood - Skin Skin Exam: Intact, Normal Color, Warm
[2017-10-29] MEDS ORDERED: Iodixanol 320 MG/ML 100 ML BOTTLE IV ONE (12:49)
--- NOTE | 2017-10-29 12:52 | CP.PCM.DIS ---
Provider - Provider Date of Admission: 10/22/17 16:09 Attending physician: Yane Bond DO Primary care physician: Dr. Duran Consults: Infectious disease: Dr. Garcia Nephrology: Dr. Gil Pulmonology: Dr. Sorto Time Spent in preparation of Discharge (in minutes): 10 Diagnosis - Discharge Diagnosis (1) Anemia Status: Chronic Priority: Low (2) Diverticulitis Status: Acute Priority: High (3) Dyspnea Status: Acute Priority: High (4) Atrial fibrillation Status: Chronic (5) Diabetes mellitus, type II Status: Chronic Priority: High (6) Hypertension Status: Chronic Priority: Medium (7) Hypothyroidism Status: Chronic Priority: Medium (8) BAR (obstructive sleep apnea) Status: Chronic Priority: Medium (9) Shoulder pain, acute Status: Chronic Priority: Medium Hospital Course - Lab Results Lab Results: Micro Results 10/24/17 23:59 Blood-Venous Blood Culture - Preliminary NO GROWTH AFTER 4 DAYS 10/24/17 23:45 Blood-Venous Blood Culture - Preliminary NO GROWTH AFTER 4 DAYS 10/26/17 09:45 Stool Stool Culture - Final NO SALMONELLA, SHIGELLA OR CAMPYLOBACTER ISOLATED. 10/26/17 09:45 Stool Ova and Parasite Concentrate Exam - Final Most Recent Lab Values WBC 7.3 K/uL (4.8-10.8) 10/29/17 04:30 RBC 3.27 Mil/uL (3.80-5.20) L 10/29/17 04:30 Hgb 7.8 g/dL (12.0-16.0) L 10/29/17 04:30 Hct 25.4 % (34.0-47.0) L 10/29/17 04:30 MCV 77.6 fl (81.0-99.0) L 10/29/17 04:30 MCH 23.8 pg (27.0-31.0) L 10/29/17 04:30 MCHC 30.7 g/dL (33.0-37.0) L 10/29/17 04:30 RDW 24.4 % (11.5-14.5) H 10/29/17 04:30 Plt Count 217 K/uL (130-400) 10/29/17 04:30 MPV 7.9 fl (7.2-11.7) 10/26/17 06:30 Neut % (Auto) 75.8 % (50.0-75.0) H 10/26/17 06:30 Lymph % (Auto) 12.8 % (20.0-40.0) L 10/26/17 06:30 Todd % (Auto) 10.2 % (0.0-10.0) H 10/26/17 06:30 Eos % (Auto) 0.7 % (0.0-4.0) 10/26/17 06:30 Baso % (Auto) 0.5 % (0.0-2.0) 10/26/17 06:30 Neut # 7.1 K/uL (1.8-7.0) H 10/26/17 06:30 Lymph # 1.2 K/uL (1.0-4.3) 10/26/17 06:30 Todd # 1.0 K/uL (0.0-0.8) H 10/26/17 06:30 Eos # 0.1 K/uL (0.0-0.7) 10/26/17 06:30 Baso # 0.0 K/uL (0.0-0.2) 10/26/17 06:30 Retic Count 3.0 % (0.5-1.5) H D 10/23/17 08:30 Haptoglobin 136 mg/dL (43-212) 10/23/17 09:46 pCO2 49 mm/Hg (35-45) H 10/29/17 09:19 pO2 96 mm/Hg (80-100) 10/29/17 09:19 HCO3 28.8 mmol/L (21-28) H 10/29/17 09:19 ABG pH 7.40 (7.35-7.45) 10/29/17 09:19 ABG Total CO2 31.9 mmol/L (22-28) H 10/29/17 09:19 ABG O2 Saturation 99.4 % (95-98) H 10/29/17 09:19 ABG O2 Content 11.6 ML/dL (15-23) L 10/29/17 09:19 ABG Base Excess 4.9 mmol/L (-2.0-3.0) H 10/29/17 09:19 ABG Hemoglobin 8.4 g/dL (11.7-17.4) L 10/29/17 09:19 ABG Carboxyhemoglobin 1.9 % (0.5-1.5) H 10/29/17 09:19 POC ABG HHb (Measured) 0.6 % (0.0-5.0) 10/29/17 09:19 ABG Methemoglobin 0.8 % (0.0-3.0) 10/29/17 09:19 ABG O2 Capacity 11.7 mL/dL (16-24) L 10/29/17 09:19 Fredi Test Yes 10/29/17 09:19 A-a O2 Difference 78.0 mm/Hg 10/29/17 09:19 Hgb O2 Saturation 96.7 % (95.0-98.0) 10/29/17 09:19 FiO2 33.0 % 10/29/17 09:19 Blood Gas Comments 3l/m nc,rr,pilo worthy 10/29/17 09:19 Crit Value Called To pilo flores 10/29/17 09:19 Crit Value Read Back y 10/29/17 09:19 Sodium 128 mmol/l (132-148) L 10/29/17 04:30 Potassium 3.7 MMOL/L (3.6-5.0) 10/29/17 04:30 Chloride 92 mmol/L (98-107) L 10/29/17 04:30 Carbon Dioxide 28 mmol/L (22-30) 10/29/17 04:30 Anion Gap 12 (10-20) 10/29/17 04:30 BUN 4 mg/dl (7-17) L 10/29/17 04:30 Creatinine 0.5 mg/dl (0.7-1.2) L 10/29/17 04:30 Est GFR ( Amer) > 60 10/29/17 04:30 Est GFR (Non-Af Amer) > 60 10/29/17 04:30 POC Glucose (mg/dL) 147 mg/dL (65-110) H 10/29/17 12:09 Random Glucose 117 mg/dL (65-105) H 10/29/17 04:30 Calcium 7.9 mg/dL (8.4-10.2) L 10/29/17 04:30 Phosphorus 3.9 mg/dl (2.5-4.5) 10/24/17 21:05 Magnesium 2.2 MG/DL (1.6-2.3) 10/24/17 21:05 Iron 94 ug/dL (37-170) 10/23/17 08:30 TIBC 440 ug/dL (250-450) 10/23/17 08:30 % Saturation 21 % (20-55) 10/23/17 08:30 Ferritin 5.2 ng/Ml (11.1-264.0) L 10/23/17 02:15 Lactate Dehydrogenase 491 U/L (313-618) 10/23/17 09:46 Troponin I < 0.0120 ng/mL (0.00-0.120) 10/23/17 02:15 NT-Pro-B Natriuret Pep 1030 pg/ml (0-900) H 10/22/17 13:50 Free T4 1.12 ng/dL (0.78-2.19) 10/24/17 04:45 Free T3 pg/mL 1.93 pg/mL (2.77-5.27) L 10/24/17 04:45 TSH 3rd Generation 8.87 mIU/ML (0.46-4.68) H 10/23/17 10:06 Urine Color Yellow (YELLOW) 10/22/17 15:35 Urine Clarity Clear (Clear) 10/22/17 15:35 Urine pH 7.0 (5.0-8.0) 10/22/17 15:[address] 1.011 (1.003-1.030) 10/22/17 15:35 Urine Protein Negative mg/dL (NEGATIVE) 10/22/17 15:35 Urine Glucose (UA) Neg mg/dL (Normal) 10/22/17 15:35 Urine Ketones Negative mg/dL (NEGATIVE) 10/22/17 15:35 Urine Blood Negative (NEGATIVE) 10/22/17 15:35 Urine Nitrate Negative (NEGATIVE) 10/22/17 15:35 Urine Bilirubin Negative (NEGATIVE) 10/22/17 15:35 Urine Urobilinogen 0.2-1.0 mg/dL (0.2-1.0) 10/22/17 15:35 Ur Leukocyte Esterase Trace Olvin/uL (Negative) 10/22/17 15:35 Urine RBC (Auto) 1 /hpf (0-3) 10/22/17 15:35 Urine Microscopic WBC 1 /hpf (0-5) 10/22/17 15:35 Ur Squamous Epith Cells < 1 /hpf (0-5) 10/22/17 15:35 Urine Osmolality 513 mosm/kg (300-1000) 10/29/17 07:30 Ur Random Creatinine 105.1 mg/dL 10/29/17 07:30 Ur Random Sodium 27 mmol/L 10/29/17 07:30 Ur Random Potassium 28.9 mmol/L 10/29/17 07:30 Stool Occult Blood Negative (NEGATIVE) 10/26/17 09:45 C. difficile Ag & Toxin Negative (NEGATIVE) 10/25/17 17:48 Blood Type O NEGATIVE 10/22/17 15:35 Antibody Screen Positive 10/22/17 15:35 Antibody Identification Anti D 10/22/17 15:35 Crossmatch See Detail 10/22/17 15:35 BBK History Checked Patient has bt 10/22/17 15:35 - Hospital Course Hospital Course: 86 year old female PMH CAD, HTN, AFib, hypothyroid, diabetes mellitus with one month history of increased dyspnea, normal echo in November,presented to ER for evaluation found to be anemic on admission with H/H 5.8/19.2. 2 UNITS PRBC were transfused 10/22/17 with a third unit transfused 10/23/17. CT abdomen showed diverticulosis and mild acute diverticulitis. Patient started on IVF , Cipro and Flagyl. Occult blood reported as negative. GI and ID were consulted. Patient clinically improving , tolerating pO intake.Advised to continue Cipro and flagyl for total 10 days . Colonoscopy as outpatient in 6 weeks.Received Venofer IV and started on Ferrous sulfate Po . Less lethargic today , responding to verbal command. ABG showed ph 7.28 PCO2 60 on 10/27. Patient has sleep apnea and has not been using CPAP while in hospital. Pulmonary consulted and placed on Bipap 10/27. PCO2 44 on 10/28 . Repeat ABG Patient for TCU today or tomorrow pending ABG. Overnight patient refusing BIPAP so was placed on high flow O2 30 LPM FIO2 35 %. This Am complaining of SOB and feeling tired , Repeat ABG showed ph 7.4 PCO2 44 PO2 82 Na 125 Changed to 3 L O2 via NC . CPAp at night time ASA and plavix resumed since patient is not actively bleeding and occult blood is negative. H & H stable after transfusion Tolerating PO intake and had regular BM. Continue Cipro and Flagyl for total 10 days. Na 128 ,low but stable. Urine lytes sent and nephro consulted Patient for DC to TCU and chest CTA - Date & Time of H&P Date of H&P: 10/29/17 Time of H&P: 12:52 Discharge Exam - Head Exam Head Exam: ATRAUMATIC, NORMOCEPHALIC - Eye Exam Eye Exam: EOMI, PERRL Pupil Exam: PERRL - ENT Exam ENT Exam: Mucous Membranes Moist - Neck Exam Neck exam: Normal Inspection - Respiratory Exam Respiratory Exam: NORMAL BREATHING PATTERN - Cardiovascular Exam Cardiovascular Exam: REGULAR RHYTHM - GI/Abdominal Exam GI & Abdominal Exam: Normal Bowel Sounds. absent: Distended, Firm, Guarding - Rectal Exam Rectal Exam: Deferred - Extremities Exam Extremities exam: normal inspection - Neurological Exam Neurological exam: Alert, Oriented x3 - Psychiatric Exam Psychiatric exam: Normal Affect, Normal Mood - Skin Skin Exam: Intact, Normal Color, Warm Discharge Plan - Discharge Medications Prescriptions: Ciprofloxacin HCl [Cipro] 250 mg PO Q12 #14 tab Metronidazole [Flagyl] 500 mg PO TID #21 tab - Follow Up Plan Condition: STABLE Disposition: TRANSF TO SNF Instructions: Anemia (DC) Referrals: Easton Chen MD [Medical Doctor] - Hemant Sorto MD [Staff Provider] -
--- NOTE | 2017-10-29 13:29 | CP.PCM.PN ---
Subjective - Date & Time of Evaluation Date of Evaluation: 10/29/17 Time of Evaluation: 13:27 - Subjective Subjective: Patient is back from CT scan of the abdomen. No nausea no vomiting. Patient feeling much better. No chest pain Objective - Vital Signs/Intake and Output Vital Signs (last 24 hours): Temp Pulse Resp BP Pulse Ox 97.5 F L 81 20 148/65 95 10/29/17 13:00 10/29/17 13:00 10/29/17 13:00 10/29/17 13:00 10/29/17 13:00 - Medications Medications: Current Medications Acetaminophen (Tylenol 325mg Tab) 650 mg PO Q6 PRN PRN Reason: Fever >100.4 F Last Admin: 10/24/17 23:43 Dose: 650 mg Acetaminophen (Tylenol 325mg Tab) 650 mg PO Q6 PRN PRN Reason: Other Last Admin: 10/23/17 08:30 Dose: 650 mg Al Hydrox/Mg Hydrox/Simethicone (Maalox Plus 30 Ml) 30 ml PO Q6 PRN PRN Reason: Indigestion / Heartburn Last Admin: 10/23/17 23:18 Dose: 30 ml Albuterol/Ipratropium (Duoneb 3 Mg/0.5 Mg (3 Ml) Ud) 3 ml INH RQID [facility] Last Admin: 10/29/17 11:29 Dose: 3 ml Amiodarone HCl (Cordarone) 100 mg PO DAILY [facility] Last Admin: 10/29/17 09:00 Dose: 100 mg Amlodipine Besylate (Norvasc) 5 mg PO DAILY [facility] Last Admin: 10/28/17 09:55 Dose: 5 mg Aspirin (Ecotrin) 81 mg PO DAILY [facility] Atorvastatin Calcium (Lipitor) 40 mg PO DAILY [facility] Last Admin: 10/29/17 09:00 Dose: 40 mg Citalopram Hydrobromide (Celexa) 10 mg PO DAILY [facility] Last Admin: 10/28/17 09:49 Dose: 10 mg Clopidogrel Bisulfate (Plavix) 75 mg PO DAILY [facility] Ferrous Sulfate (Feosol) 325 mg PO BID [facility] Last Admin: 10/29/17 09:00 Dose: 325 mg Ciprofloxacin (Cipro 400mg/200ml Dsw) 400 mg in 200 mls @ 200 mls/hr IVPB Q12 [facility] PRN Reason: Protocol Last Admin: 10/29/17 09:00 Dose: 200 mls/hr Metronidazole (Flagyl 500mg/100ml Ns) 100 mls @ 100 mls/hr IVPB Q8 [facility] PRN Reason: Protocol Last Admin: 10/29/17 09:00 Dose: 100 mls/hr Insulin Human Lispro (Humalog) 0 units SC ACHS [facility] PRN Reason: Protocol Last Admin: 10/29/17 06:36 Dose: Not Given Isosorbide Mononitrate (Imdur Er) 30 mg PO DAILY [facility] Last Admin: 10/29/17 09:00 Dose: 30 mg Levothyroxine Sodium (Synthroid) 200 mcg PO DAILY@0630 [facility] Last Admin: 10/29/17 06:16 Dose: 200 mcg Losartan Potassium (Cozaar) 50 mg PO DAILY [facility] Last Admin: 10/29/17 09:00 Dose: 50 mg Metformin HCl (Glucophage) 1,000 mg PO BID [facility] Last Admin: 10/29/17 09:00 Dose: 1,000 mg Olopatadine HCl (Patanol 0.1% Opht Soln) 1 drop OU DAILY [facility] Last Admin: 10/29/17 09:00 Dose: 1 drop Ondansetron HCl (Zofran Inj) 4 mg IVP Q6 PRN PRN Reason: Nausea/Vomiting Last Admin: 10/25/17 13:10 Dose: 4 mg Pantoprazole Sodium (Protonix Ec Tab) 20 mg PO DAILY [facility] Last Admin: 10/29/17 09:00 Dose: 20 mg Sitagliptin Phosphate (Januvia) 100 mg PO DAILY [facility] Last Admin: 10/29/17 09:00 Dose: 100 mg - Labs Labs: 10/29/17 04:30 10/29/17 04:30 - Constitutional Appears: No Acute Distress - ENT Exam ENT Exam: Mucous Membranes Moist - Respiratory Exam Respiratory Exam: Rhonchi, NORMAL BREATHING PATTERN - Cardiovascular Exam Cardiovascular Exam: absent: Gallop, JVD, Rubs - GI/Abdominal Exam GI & Abdominal Exam: Soft, Normal Bowel Sounds. absent: Guarding - Extremities Exam Extremities Exam: absent: Calf Tenderness - Back Exam Back Exam: absent: CVA tenderness (L), CVA tenderness (R) - Neurological Exam Neurological Exam: Alert - Psychiatric Exam Psychiatric exam: Normal Affect - Skin Skin Exam: absent: Cyanosis Assessment and Plan (1) Hyponatremia Assessment & Plan: Serum sodium is still 128. Has not being changed from yesterday I noted that Cipro antibiotics has not been mixed with normal saline as ordered. I did discuss with the nurse and she is going to take over the changes. I aded 0.9 normal saline IV fluid 40 mL/h Repeat blood work tomorrow Anemia keep monitoring as per primary diverticulitis Status: Acute
--- NOTE | 2017-10-29 13:57 | CT ---
PROCEDURE: CT Chest with contrast (Pulmonary Angiogram) HISTORY: dyspnea COMPARISON: None available. TECHNIQUE: Axial computed tomography images were obtained of the chest in the pulmonary arterial phase of enhancement. Coronal and sagittal reformatted images were created and reviewed. Intravenous contrast dose: Radiation dose: Total exam DLP = mGy-cm. This CT exam was performed using one or more of the following dose reduction techniques: Automated exposure control, adjustment of the mA and/or kV according to patient size, and/or use of iterative reconstruction technique. FINDINGS: PULMONARY ARTERIES: Unremarkable. No pulmonary embolism. AORTA: No acute findings. No thoracic aortic aneurysm. LUNGS: Unremarkable. No nodule, mass or pulmonary consolidation. PLEURAL SPACES: Large bilateral pleural effusions. Accompanying compressive atelectasis at the lung bases. HEART: Unremarkable. No cardiomegaly. No significant pericardial effusion. LYMPH NODES: No lymphadenopathy. BONES, CHEST WALL: Unremarkable. No fracture or destructive lesion OTHER FINDINGS: Unremarkable. IMPRESSION: Large bilateral pleural effusions. Accompanying compressive atelectasis at the lung bases. Findings likely related to CHF. No evidence of pulmonary embolism.
[2017-10-29] MEDS ORDERED: Sodium Chloride 0.9% 1,000 ML IV SCH (14:00)
--- NOTE | 2017-10-29 15:48 | CP.PCM.PN ---
<Patrice,Mark - Last Filed: 10/29/17 15:46> Subjective - Date & Time of Evaluation Date of Evaluation: 10/29/17 Time of Evaluation: 15:48 - Subjective Subjective: 87 year old female seen at bedside for anemia, diverticulitis and dyspnea. Patient is AAO x3 seen sleeping in bed. She states that she has no abdominal pain today but continues to complain of shortness of breath, especially when eating. She states that she has not been able to eat much in the last few days because of this dyspnea. Patient is less lethargic today than during previous examinations. She denies any acute overnight events. Denies N/V/F/C/CP/ posterior calf pain/urinary retention/constipation Objective - Vital Signs/Intake and Output Vital Signs (last 24 hours): Temp Pulse Resp BP Pulse Ox 97.5 F L 81 20 148/65 95 10/29/17 13:00 10/29/17 13:00 10/29/17 13:00 10/29/17 13:00 10/29/17 13:00 - Medications Medications: Current Medications Acetaminophen (Tylenol 325mg Tab) 650 mg PO Q6 PRN PRN Reason: Fever >100.4 F Last Admin: 10/24/17 23:43 Dose: 650 mg Acetaminophen (Tylenol 325mg Tab) 650 mg PO Q6 PRN PRN Reason: Other Last Admin: 10/23/17 08:30 Dose: 650 mg Al Hydrox/Mg Hydrox/Simethicone (Maalox Plus 30 Ml) 30 ml PO Q6 PRN PRN Reason: Indigestion / Heartburn Last Admin: 10/23/17 23:18 Dose: 30 ml Albuterol/Ipratropium (Duoneb 3 Mg/0.5 Mg (3 Ml) Ud) 3 ml INH RQID [facility] Last Admin: 10/29/17 11:29 Dose: 3 ml Amiodarone HCl (Cordarone) 100 mg PO DAILY [facility] Last Admin: 10/29/17 09:00 Dose: 100 mg Amlodipine Besylate (Norvasc) 5 mg PO DAILY [facility] Last Admin: 10/28/17 09:55 Dose: 5 mg Aspirin (Ecotrin) 81 mg PO DAILY [facility] Atorvastatin Calcium (Lipitor) 40 mg PO DAILY [facility] Last Admin: 10/29/17 09:00 Dose: 40 mg Citalopram Hydrobromide (Celexa) 10 mg PO DAILY [facility] Last Admin: 10/28/17 09:49 Dose: 10 mg Clopidogrel Bisulfate (Plavix) 75 mg PO DAILY [facility] Ferrous Sulfate (Feosol) 325 mg PO BID [facility] Last Admin: 10/29/17 09:00 Dose: 325 mg Ciprofloxacin (Cipro 400mg/200ml Dsw) 400 mg in 200 mls @ 200 mls/hr IVPB Q12 [facility] A PRN Reason: Protocol Last Admin: 10/29/17 09:00 Dose: 200 mls/hr Metronidazole (Flagyl 500mg/100ml Ns) 100 mls @ 100 mls/hr IVPB Q8 JOSE A PRN Reason: Protocol Last Admin: 10/29/17 09:00 Dose: 100 mls/hr Sodium Chloride (Sodium Chloride 0.9%) 1,000 mls @ 40 mls/hr IV .Q24H [facility] Stop: 10/30/17 14:01 Insulin Human Lispro (Humalog) 0 units SC ACHS [facility] PRN Reason: Protocol Last Admin: 10/29/17 12:00 Dose: Not Given Isosorbide Mononitrate (Imdur Er) 30 mg PO DAILY [facility] Last Admin: 10/29/17 09:00 Dose: 30 mg Levothyroxine Sodium (Synthroid) 200 mcg PO DAILY@0630 [facility] Last Admin: 10/29/17 06:16 Dose: 200 mcg Losartan Potassium (Cozaar) 50 mg PO DAILY [facility] Last Admin: 10/29/17 09:00 Dose: 50 mg Metformin HCl (Glucophage) 1,000 mg PO BID [facility] Last Admin: 10/29/17 09:00 Dose: 1,000 mg Olopatadine HCl (Patanol 0.1% Opht Soln) 1 drop OU DAILY [facility] Last Admin: 10/29/17 09:00 Dose: 1 drop Ondansetron HCl (Zofran Inj) 4 mg IVP Q6 PRN PRN Reason: Nausea/Vomiting Last Admin: 10/25/17 13:10 Dose: 4 mg Pantoprazole Sodium (Protonix Ec Tab) 20 mg PO DAILY [facility] Last Admin: 10/29/17 09:00 Dose: 20 mg Sitagliptin Phosphate (Januvia) 100 mg PO DAILY [facility] Last Admin: 10/29/17 09:00 Dose: 100 mg - Labs Labs: 12/20/17 04:30 10/29/17 04:30 - Constitutional Appears: Well, Non-toxic, No Acute Distress - Head Exam Head Exam: ATRAUMATIC, NORMOCEPHALIC - Eye Exam Eye Exam: EOMI, PERRL Pupil Exam: PERRL - ENT Exam ENT Exam: Mucous Membranes Moist - Neck Exam Neck Exam: Normal Inspection. absent: Tenderness - Respiratory Exam Respiratory Exam: Clear to Ausculation Bilateral, Respiratory Distress, NORMAL BREATHING PATTERN - Cardiovascular Exam Cardiovascular Exam: REGULAR RHYTHM - GI/Abdominal Exam GI & Abdominal Exam: Soft. absent: Distended, Firm, Guarding, Rigid, Tenderness - Rectal Exam Rectal Exam: Deferred - Extremities Exam Extremities Exam: Normal Capillary Refill, Normal Inspection - Neurological Exam Neurological Exam: Alert, Awake, Oriented x3 - Psychiatric Exam Psychiatric exam: Normal Affect, Normal Mood - Skin Skin Exam: Intact, Normal Color, Warm Assessment and Plan - Assessment and Plan (Free Text) Assessment: 86 year old female PMH CAD, HTN, AFib, hypothyroid, diabetes mellitus with one month history of increased dyspnea, normal echo in November,presented to ER for evaluation found to be anemic on admission with H/H 5.8/19.2. 2 UNITS PRBC were transfused 10/22/17 with a third unit transfused 10/23/17. CT abdomen showed diverticulosis and mild acute diverticulitis. Patient started on IVF , Cipro and Flagyl. Occult blood reported as negative. GI and ID were consulted. Patient clinically improving , tolerating pO intake.Advised to continue Cipro and flagyl for total 10 days . Colonoscopy as outpatient in 6 weeks.Received Venofer IV and started on Ferrous sulfate Po . Less lethargic today , responding to verbal command. ABG showed ph 7.28 PCO2 60 on 10/27. Patient has sleep apnea and has not been using CPAP while in hospital. Pulmonary consulted and placed on Bipap 10/27. PCO2 44 on 10/28 . Repeat ABG Patient for TCU today or tomorrow pending ABG. Overnight patient refusing BIPAP so was placed on high flow O2 30 LPM FIO2 35 %. This Am complaining of SOB and feeling tired , Repeat ABG showed ph 7.4 PCO2 44 PO2 82 Na 125 Changed to 3 L O2 via NC . CPAp at night time ASA and plavix resumed since patient is not actively bleeding and occult blood is negative. H & H stable after transfusion Tolerating PO intake and had regular BM. Continue Cipro and Flagyl for total 10 days. Na 128 ,low but stable. Urine lytes sent and nephro consulted Chest CT: Large b/l pleural effusions. Accompanying compressive atelectasis at the lung bases. Findings likely related to CHF. No evidence of PE Patient to remain in tele for time being For thoracocentesis tomorrow morning Pt to be NPO tonight after midnight except meds Plan: 1. Anemia - H/H, 7.8/25.4 - Continue Feosol 2. Diverticulitis - ID consulted - Continue Cipro, Flagyl 3. Dyspnea - Pulmonology consulted - O2 sat 95% w/ nasal canula on 3 L flow - Continue albuterol - Hold plavix - Chest CT: Large b/l pleural effusions. Accompanying compressive atelectasis at the lung bases. Findings likely related to CHF. No evidence of PE - Patient for Throacentesis tomorrow 10/30/17 - Pt NPO after midnight tonight except meds - Vital signs q4h 4. Atrial Fibrillation - Continue amiodarone, ASA - Hold plavix 5. Diabtets Mellitus - POC glucose 147 - Continue humalog, metformin, Januvia - Accucheck 6. HTN - BP 148/65 - Continue Norvasc, Lipitor, Imdur, Cozaar - Controlled - Monitor 7. Hyperthyroidism - Continue Synthroid 8. BAR - Continue CPAP at night for sleep 9. Shoulder Pain - Continue tylenol, prn pain 10. DVT prophylaxis - SCDs - Continue ASA <Manohar Barone - Last Filed: 10/29/17 17:37> Objective - Vital Signs/Intake and Output Vital Signs (last 24 hours): Temp Pulse Resp BP Pulse Ox 98.3 F 76 18 147/75 97 10/29/17 16:12 10/29/17 16:12 10/29/17 16:12 10/29/17 16:12 10/29/17 16:12 - Medications Medications: Current Medications Acetaminophen (Tylenol 325mg Tab) 650 mg PO Q6 PRN PRN Reason: Fever >100.4 F Last Admin: 10/24/17 23:43 Dose: 650 mg Acetaminophen (Tylenol 325mg Tab) 650 mg PO Q6 PRN PRN Reason: Other Last Admin: 10/23/17 08:30 Dose: 650 mg Al Hydrox/Mg Hydrox/Simethicone (Maalox Plus 30 Ml) 30 ml PO Q6 PRN PRN Reason: Indigestion / Heartburn Last Admin: 10/23/17 23:18 Dose: 30 ml Albuterol/Ipratropium (Duoneb 3 Mg/0.5 Mg (3 Ml) Ud) 3 ml INH RQID [facility] Last Admin: 10/29/17 16:03 Dose: 3 ml Amiodarone HCl (Cordarone) 100 mg PO DAILY [facility] Last Admin: 10/29/17 09:00 Dose: 100 mg Amlodipine Besylate (Norvasc) 5 mg PO DAILY [facility] Last Admin: 10/28/17 09:55 Dose: 5 mg Aspirin (Ecotrin) 81 mg PO DAILY [facility] Atorvastatin Calcium (Lipitor) 40 mg PO DAILY [facility] Last Admin: 10/29/17 09:00 Dose: 40 mg Citalopram Hydrobromide (Celexa) 10 mg PO DAILY [facility] Last Admin: 10/28/17 09:49 Dose: 10 mg Clopidogrel Bisulfate (Plavix) 75 mg PO DAILY [facility] Ferrous Sulfate (Feosol) 325 mg PO BID [facility] Last Admin: 10/29/17 09:00 Dose: 325 mg Ciprofloxacin (Cipro 400mg/200ml Dsw) 400 mg in 200 mls @ 200 mls/hr IVPB Q12 [facility] PRN Reason: Protocol Last Admin: 10/29/17 09:00 Dose: 200 mls/hr Metronidazole (Flagyl 500mg/100ml Ns) 100 mls @ 100 mls/hr IVPB Q8 [facility] PRN Reason: Protocol Last Admin: 10/29/17 09:00 Dose: 100 mls/hr Sodium Chloride (Sodium Chloride 0.9%) 1,000 mls @ 40 mls/hr IV .Q24H [facility] Stop: 10/30/17 14:01 Insulin Human Lispro (Humalog) 0 units SC ACHS [facility] PRN Reason: Protocol Last Admin: 10/29/17 12:00 Dose: Not Given Isosorbide Mononitrate (Imdur Er) 30 mg PO DAILY [facility] Last Admin: 10/29/17 09:00 Dose: 30 mg Levothyroxine Sodium (Synthroid) 200 mcg PO DAILY@0630 [facility] Last Admin: 10/29/17 06:16 Dose: 200 mcg Losartan Potassium (Cozaar) 50 mg PO DAILY [facility] Last Admin: 10/29/17 09:00 Dose: 50 mg Metformin HCl (Glucophage) 1,000 mg PO BID [facility] Last Admin: 10/29/17 09:00 Dose: 1,000 mg Olopatadine HCl (Patanol 0.1% Opht Soln) 1 drop OU DAILY [facility] Last Admin: 10/29/17 09:00 Dose: 1 drop Ondansetron HCl (Zofran Inj) 4 mg IVP Q6 PRN PRN Reason: Nausea/Vomiting Last Admin: 10/25/17 13:10 Dose: 4 mg Pantoprazole Sodium (Protonix Ec Tab) 20 mg PO DAILY [facility] Last Admin: 10/29/17 09:00 Dose: 20 mg Sitagliptin Phosphate (Januvia) 100 mg PO DAILY [facility] Last Admin: 10/29/17 09:00 Dose: 100 mg - Labs Labs: 10/29/17 04:30 10/29/17 04:30
[2017-10-30] MEDS: metroNIDAZOLE 500mg/100ml NS 100 ML IVPB SCH ×3 (00:19→17:21)
[2017-10-30 05:42] LABS: HEMATOCRIT 27.2 % (34.0-47.0); MEAN CELL VOLUME 78.1 fl (81.0-99.0); MEAN CORPUSCULAR HEMOGLOBIN 23.8 pg (27.0-31.0); MEAN CORPUSCULAR HGB CONC 30.5 g/dL (33.0-37.0); WHITE BLOOD COUNT 6.9 K/uL (4.8-10.8)
[2017-10-30] MEDS: Levothyroxine 100 MCG TAB PO SCH (06:00)
[2017-10-30 06:13] LABS: PARTIAL THROMBOPLASTIN TIME 30.9 Seconds (25.6-37.1)
[2017-10-30] MEDS ORDERED: Albuterol-Ipratrop 3 mg / 0.5 (3 ml) UD INH STA (06:27)
[2017-10-30] MEDS: Insulin Lispro (humaLOG) 100 Units/ml Inj SC SCH ×4 (07:08→22:00)
[2017-10-30] MEDS: Albuterol-Ipratrop 3 mg / 0.5 (3 ml) UD INH SCH ×5 (07:58→19:14)
[2017-10-30] MEDS: Ciprofloxacin 400mg/200ml D5W 400 MG/200 ML BAG IVPB SCH ×2 (08:52→20:57)
[2017-10-30] MEDS: Olopatadine 0.1% Opht SOLN OU SCH (08:55)
[2017-10-30] MEDS: Pantoprazole 20 mg EC Tab PO SCH (08:55)
--- NOTE | 2017-10-30 09:25 | CP.PCM.PN ---
Subjective - Date & Time of Evaluation Date of Evaluation: 10/30/17 Time of Evaluation: 09:24 - Subjective Subjective: Patient awake conscious not in acute distress appears to be more comfortable Patient eating Breakfast no nausea or vomiting reported Patient reported no diarrhea Objective - Vital Signs/Intake and Output Vital Signs (last 24 hours): Temp Pulse Resp BP Pulse Ox 97.1 F L 74 20 164/64 H 96 10/30/17 08:00 10/30/17 08:56 10/30/17 08:00 10/30/17 08:56 10/30/17 08:00 - Medications Medications: Current Medications Acetaminophen (Tylenol 325mg Tab) 650 mg PO Q6 PRN PRN Reason: Fever >100.4 F Last Admin: 10/24/17 23:43 Dose: 650 mg Acetaminophen (Tylenol 325mg Tab) 650 mg PO Q6 PRN PRN Reason: Other Last Admin: 10/23/17 08:30 Dose: 650 mg Al Hydrox/Mg Hydrox/Simethicone (Maalox Plus 30 Ml) 30 ml PO Q6 PRN PRN Reason: Indigestion / Heartburn Last Admin: 10/23/17 23:18 Dose: 30 ml Albuterol/Ipratropium (Duoneb 3 Mg/0.5 Mg (3 Ml) Ud) 3 ml INH RQID [facility] Last Admin: 10/30/17 07:58 Dose: 3 ml Amiodarone HCl (Cordarone) 100 mg PO DAILY [facility] Last Admin: 10/30/17 08:53 Dose: 100 mg Amlodipine Besylate (Norvasc) 5 mg PO DAILY [facility] Last Admin: 10/30/17 08:56 Dose: 5 mg Aspirin (Ecotrin) 81 mg PO DAILY [facility] Last Admin: 10/30/17 08:54 Dose: Not Given Atorvastatin Calcium (Lipitor) 40 mg PO DAILY [facility] Last Admin: 10/30/17 08:55 Dose: 40 mg Citalopram Hydrobromide (Celexa) 10 mg PO DAILY [facility] Last Admin: 10/28/17 09:49 Dose: 10 mg Clopidogrel Bisulfate (Plavix) 75 mg PO DAILY [facility] Ferrous Sulfate (Feosol) 325 mg PO BID [facility] Last Admin: 10/30/17 08:53 Dose: 325 mg Ciprofloxacin (Cipro 400mg/200ml Dsw) 400 mg in 200 mls @ 200 mls/hr IVPB Q12 [facility] A PRN Reason: Protocol Last Admin: 10/30/17 08:52 Dose: 200 mls/hr Metronidazole (Flagyl 500mg/100ml Ns) 100 mls @ 100 mls/hr IVPB Q8 JOSE A PRN Reason: Protocol Last Admin: 10/30/17 08:54 Dose: 100 mls/hr Sodium Chloride (Sodium Chloride 0.9%) 1,000 mls @ 40 mls/hr IV .Q24H [facility] Stop: 10/30/17 14:01 Last Admin: 10/29/17 14:00 Dose: 40 mls/hr Insulin Human Lispro (Humalog) 0 units SC ACHS [facility] A PRN Reason: Protocol Last Admin: 10/30/17 07:08 Dose: Not Given Isosorbide Mononitrate (Imdur Er) 30 mg PO DAILY [facility] Last Admin: 10/30/17 08:55 Dose: 30 mg Levothyroxine Sodium (Synthroid) 200 mcg PO DAILY@0630 [facility] Last Admin: 10/30/17 06:00 Dose: 200 mcg Losartan Potassium (Cozaar) 50 mg PO DAILY [facility] Last Admin: 10/30/17 08:53 Dose: 50 mg Metformin HCl (Glucophage) 1,000 mg PO BID [facility] Last Admin: 10/30/17 08:55 Dose: 1,000 mg Olopatadine HCl (Patanol 0.1% Opht Soln) 1 drop OU DAILY [facility] Last Admin: 10/30/17 08:55 Dose: 1 drop Ondansetron HCl (Zofran Inj) 4 mg IVP Q6 PRN PRN Reason: Nausea/Vomiting Last Admin: 10/25/17 13:10 Dose: 4 mg Pantoprazole Sodium (Protonix Ec Tab) 20 mg PO DAILY [facility] Last Admin: 10/30/17 08:55 Dose: 20 mg Sitagliptin Phosphate (Januvia) 100 mg PO DAILY [facility] Last Admin: 10/30/17 08:55 Dose: 100 mg - Labs Labs: 10/30/17 05:26 10/29/17 04:30 PT 14.9 Seconds (9.8-13.1) H 10/30/17 05:26 INR 1.3 (0.9-1.2) H 10/30/17 05:26 APTT 30.9 Seconds (25.6-37.1) 10/30/17 05:26 - Constitutional Appears: No Acute Distress - ENT Exam ENT Exam: Mucous Membranes Moist - Neck Exam Neck Exam: absent: Lymphadenopathy - Respiratory Exam Respiratory Exam: absent: Chest Wall Tenderness - Cardiovascular Exam Cardiovascular Exam: absent: JVD, Rubs - GI/Abdominal Exam GI & Abdominal Exam: Guarding, Normal Bowel Sounds - Extremities Exam Extremities Exam: absent: Calf Tenderness - Back Exam Back Exam: absent: CVA tenderness (L), CVA tenderness (R) - Neurological Exam Neurological Exam: Alert - Skin Skin Exam: absent: Cyanosis Assessment and Plan (1) Hyponatremia Assessment & Plan: Hyponatremia and repeat BMP this morning still pending BMP ordered stat I ask the nurse to call me for the result of the electrolyte Unfortunately Cipro mixed with D%W only,if sodium is still low we may have to switch intravenous Cipro to oral to minimize the D5W in order to raise serum sodium. Continue normal saline gently. Patient is going for thoracocentesis as I am told. Status: Acute
--- NOTE | 2017-10-30 09:49 | CP.PCM.PN ---
Subjective - Date & Time of Evaluation Date of Evaluation: 10/30/17 Time of Evaluation: 09:49 - Subjective Subjective: Continues to have excessive daytime somnolence. Placed back on High-Flow nasal oxygen. CT chest shows a moderate sizes pleural effusion on the right and a smaller effusion on the left. Bibasal sub-segmental compressive atelectasis is noted as well. Her oxygenation is satisfactory on the high flow. Breath sounds are present bilaterally, only slightly diminished at the right base. No audible wheezing or bronchial breath sounds heard. Dry basal rales bilaterally. Trace dependant edema bilaterally, no cyanosis. Heart sounds are distant with regular rhythm. Plan for thoracentesis today. Maintain High-Flow nasal oxygen. Continue present antibiotic therapy. Objective - Vital Signs/Intake and Output Vital Signs (last 24 hours): Temp Pulse Resp BP Pulse Ox 97.1 F L 74 20 164/64 H 96 10/30/17 08:00 10/30/17 08:56 10/30/17 08:00 10/30/17 08:56 10/30/17 08:00 - Medications Medications: Current Medications Acetaminophen (Tylenol 325mg Tab) 650 mg PO Q6 PRN PRN Reason: Fever >100.4 F Last Admin: 10/24/17 23:43 Dose: 650 mg Acetaminophen (Tylenol 325mg Tab) 650 mg PO Q6 PRN PRN Reason: Other Last Admin: 10/23/17 08:30 Dose: 650 mg Al Hydrox/Mg Hydrox/Simethicone (Maalox Plus 30 Ml) 30 ml PO Q6 PRN PRN Reason: Indigestion / Heartburn Last Admin: 10/23/17 23:18 Dose: 30 ml Albuterol/Ipratropium (Duoneb 3 Mg/0.5 Mg (3 Ml) Ud) 3 ml INH RQID [facility] Last Admin: 10/30/17 07:58 Dose: 3 ml Amiodarone HCl (Cordarone) 100 mg PO DAILY [facility] Last Admin: 10/30/17 08:53 Dose: 100 mg Amlodipine Besylate (Norvasc) 5 mg PO DAILY [facility] Last Admin: 10/30/17 08:56 Dose: 5 mg Aspirin (Ecotrin) 81 mg PO DAILY [facility] Last Admin: 10/30/17 08:54 Dose: Not Given Atorvastatin Calcium (Lipitor) 40 mg PO DAILY [facility] Last Admin: 10/30/17 08:55 Dose: 40 mg Clopidogrel Bisulfate (Plavix) 75 mg PO DAILY [facility] Ferrous Sulfate (Feosol) 325 mg PO BID [facility] Last Admin: 10/30/17 08:53 Dose: 325 mg Ciprofloxacin (Cipro 400mg/200ml Dsw) 400 mg in 200 mls @ 200 mls/hr IVPB Q12 [facility] A PRN Reason: Protocol Last Admin: 10/30/17 08:52 Dose: 200 mls/hr Metronidazole (Flagyl 500mg/100ml Ns) 100 mls @ 100 mls/hr IVPB Q8 JO[facility] A PRN Reason: Protocol Last Admin: 10/30/17 08:54 Dose: 100 mls/hr Sodium Chloride (Sodium Chloride 0.9%) 1,000 mls @ 40 mls/hr IV .Q24H [facility] Stop: 10/30/17 14:01 Last Admin: 10/29/17 14:00 Dose: 40 mls/hr Insulin Human Lispro (Humalog) 0 units SC ACHS [facility] A PRN Reason: Protocol Last Admin: 10/30/17 07:08 Dose: Not Given Isosorbide Mononitrate (Imdur Er) 30 mg PO DAILY [facility] Last Admin: 10/30/17 08:55 Dose: 30 mg Levothyroxine Sodium (Synthroid) 200 mcg PO DAILY@0630 [facility] Last Admin: 10/30/17 06:00 Dose: 200 mcg Losartan Potassium (Cozaar) 50 mg PO DAILY [facility] Last Admin: 10/30/17 08:53 Dose: 50 mg Metformin HCl (Glucophage) 1,000 mg PO BID [facility] Last Admin: 10/30/17 08:55 Dose: 1,000 mg Olopatadine HCl (Patanol 0.1% Opht Soln) 1 drop OU DAILY [facility] Last Admin: 10/30/17 08:55 Dose: 1 drop Ondansetron HCl (Zofran Inj) 4 mg IVP Q6 PRN PRN Reason: Nausea/Vomiting Last Admin: 10/25/17 13:10 Dose: 4 mg Pantoprazole Sodium (Protonix Ec Tab) 20 mg PO DAILY [facility] Last Admin: 10/30/17 08:55 Dose: 20 mg Sitagliptin Phosphate (Januvia) 100 mg PO DAILY [facility] Last Admin: 10/30/17 08:55 Dose: 100 mg - Labs Labs: 10/30/17 05:26 10/29/17 04:30 PT 14.9 Seconds (9.8-13.1) H 10/30/17 05:26 INR 1.3 (0.9-1.2) H 10/30/17 05:26 APTT 30.9 Seconds (25.6-37.1) 10/30/17 05:26 Assessment and Plan (1) Acute hypercapnic respiratory failure due to obstructive sleep apnea Status: Acute (2) Diverticulitis Status: Acute (3) Asthma Status: Chronic (4) Hypertension Status: Chronic (5) Hypothyroidism Status: Chronic (6) Diabetes mellitus, type II Status: Chronic
[2017-10-30 09:56] LABS: BLOOD UREA NITROGEN 2 mg/dl (7-17); CALCIUM 7.9 mg/dL (8.4-10.2); CARBON DIOXIDE 27 mmol/L (22-30); CHLORIDE 92 mmol/L (98-107); GFR AFRICAN-AMERICAN > 60; GLUCOSE,RANDOM 69 mg/dL (65-105); POTASSIUM 3.6 MMOL/L (3.6-5.0); SODIUM 128 mmol/l (132-148)
[2017-10-30] MEDS ORDERED: Lidocaine 1% Inj (20ml) ONE (10:57)
--- NOTE | 2017-10-30 11:37 | PCM.SURG1 ---
Surgeon's Initial Post Op Note - Surgeon's Notes Surgeon: Galen Paige MD Head Cager: None Type of Anesthesia: Local Pre-Operative Diagnosis: SOB Operative Findings: Moderate right pleural effusion Post-Operative Diagnosis: same Operation Performed: US guided RIGHT thoracentesis Specimen/Specimens Removed: 600 cc straw colored fluid. specimen submitted as requested. Estimated Blood Loss: EBL {In ML}: 0 Post-Op Condition: Good Date of Surgery/Procedure: 10/30/17 Time of Surgery/Procedure: 11:15
--- NOTE | 2017-10-30 12:11 | US ---
PROCEDURE: ULTRASOUND-GUIDED THORACENTESIS CLINICAL HISTORY: 87-year-old female with symptomatic bilateral pleural effusions is referred to Interventional Radiology for ultrasound-guided thoracentesis. COMPARISON: CT angiography of the pulmonary arteries performed 10/29/2017 PROCEDURE: 1. Ultrasound-guided right thoracentesis. PRE-PROCEDURE FINDINGS: 1. Moderate volume pleural effusion. POST-PROCEDURE FINDINGS: 1. No evidence of post-procedural complication. INTERVENTIONAL RADIOLOGIST: Galen Paige M.D. (the attending was present for the entire procedure) ANESTHESIA: None. MEDICATION: Lidocaine 1% for local subcutaneous analgesia. COMPLICATIONS: None. PROCEDURE DESCRIPTION AND FINDINGS: The risks, benefits, alternatives and possible complications of the procedure were fully discussed; all questions were answered and informed consent was obtained. The patient was brought into the interventional suite and a pre-procedure 'time-out' was performed. The patient was placed in the seated position. Preliminary ultrasound images of the right hemithorax demonstrate a moderate simple appearing pleural effusion. The right hemithorax was prepped and draped in the usual sterile fashion. Maximum sterile barrier precautions were maintained throughout the entire procedure. Following subcutaneous infiltration of lidocaine 1% for local analgesia, under ultrasound guidance, a 5 [place] centesis catheter was advanced into right pleural space with real-time visualization of needle entry. The ultrasound images were permanently recorded and submitted to the PACS. The inner stylet was removed with prompt return of straw-colored fluid. The catheter was attached to gentle vacuum suction. A total of 600 mL of straw-colored fluid was aspirated. A sample was sent to the laboratory for analysis. The drainage catheter was then removed. A sterile adhesive bandage was placed over the puncture site. The patient tolerated the procedure well without immediate post-procedure complications and was transferred back to the floor in stable condition. IMPRESSION: SUCCESSFUL ULTRASOUND-GUIDED RIGHT DIAGNOSTIC AND THERAPEUTIC THORACENTESIS.
[2017-10-30 12:36] LABS: BODY FLUID TYPE PLEURAL/THORACENTESI
[2017-10-30 13:33] LABS: LDH,BODY FLUID 201 IU (NONE ESTABLISHED)
[2017-10-30 14:23] LABS: BF GROSS APPEARANCE CLEAR (CLEAR)
[2017-10-30] MEDS ORDERED: Tolvaptan 15 MG TAB PO ONE (14:25)
--- NOTE | 2017-10-30 14:37 | CP.PCM.PN ---
Subjective - Date & Time of Evaluation Date of Evaluation: 10/30/17 Time of Evaluation: 14:35 - Subjective Subjective: 87 year old female seen at bedside for anemia, diverticulitis and dyspnea secondary to b/l pleural effusions. Patient had a right sided thoracentesis this morning in which 600 cc of fluid were removed. Patient is AAO x3 sitting up in a chair eating and utilizing a high flow nasal canula. Patient appears much less lethargic than during previous examinations. She states that she has no abdominal pain today and no longer complains of shortness of breath. She denies any acute overnight events. Denies N/V/F/C/CP/posterior calf pain/ urinary retention/constipation Objective - Vital Signs/Intake and Output Vital Signs (last 24 hours): Temp Pulse Resp BP Pulse Ox 97.6 F 75 20 138/63 96 10/30/17 12:00 10/30/17 12:00 10/30/17 12:00 10/30/17 12:00 10/30/17 12:00 - Medications Medications: Current Medications Acetaminophen (Tylenol 325mg Tab) 650 mg PO Q6 PRN PRN Reason: Fever >100.4 F Last Admin: 10/24/17 23:43 Dose: 650 mg Acetaminophen (Tylenol 325mg Tab) 650 mg PO Q6 PRN PRN Reason: Other Last Admin: 10/23/17 08:30 Dose: 650 mg Al Hydrox/Mg Hydrox/Simethicone (Maalox Plus 30 Ml) 30 ml PO Q6 PRN PRN Reason: Indigestion / Heartburn Last Admin: 10/23/17 23:18 Dose: 30 ml Albuterol/Ipratropium (Duoneb 3 Mg/0.5 Mg (3 Ml) Ud) 3 ml INH RQID [facility] Last Admin: 10/30/17 11:49 Dose: 3 ml Amiodarone HCl (Cordarone) 100 mg PO DAILY [facility] Last Admin: 10/30/17 08:53 Dose: 100 mg Amlodipine Besylate (Norvasc) 5 mg PO DAILY [facility] Last Admin: 10/30/17 08:56 Dose: 5 mg Aspirin (Ecotrin) 81 mg PO DAILY [facility] Last Admin: 10/30/17 08:54 Dose: Not Given Atorvastatin Calcium (Lipitor) 40 mg PO DAILY [facility] Last Admin: 10/30/17 08:55 Dose: 40 mg Clopidogrel Bisulfate (Plavix) 75 mg PO DAILY [facility] Ferrous Sulfate (Feosol) 325 mg PO BID [facility] Last Admin: 10/30/17 08:53 Dose: 325 mg Ciprofloxacin (Cipro 400mg/200ml Dsw) 400 mg in 200 mls @ 200 mls/hr IVPB Q12 [facility] PRN Reason: Protocol Last Admin: 10/30/17 08:52 Dose: 200 mls/hr Metronidazole (Flagyl 500mg/100ml Ns) 100 mls @ 100 mls/hr IVPB Q8 [facility] PRN Reason: Protocol Last Admin: 10/30/17 08:54 Dose: 100 mls/hr Insulin Human Lispro (Humalog) 0 units SC ACHS [facility] PRN Reason: Protocol Last Admin: 10/30/17 07:08 Dose: Not Given Isosorbide Mononitrate (Imdur Er) 30 mg PO DAILY [facility] Last Admin: 10/30/17 08:55 Dose: 30 mg Levothyroxine Sodium (Synthroid) 200 mcg PO DAILY@0630 [facility] Last Admin: 10/30/17 06:00 Dose: 200 mcg Losartan Potassium (Cozaar) 50 mg PO DAILY [facility] Last Admin: 10/30/17 08:53 Dose: 50 mg Metformin HCl (Glucophage) 1,000 mg PO BID [facility] Last Admin: 10/30/17 08:55 Dose: 1,000 mg Olopatadine HCl (Patanol 0.1% Opht Soln) 1 drop OU DAILY [facility] Last Admin: 10/30/17 08:55 Dose: 1 drop Ondansetron HCl (Zofran Inj) 4 mg IVP Q6 PRN PRN Reason: Nausea/Vomiting Last Admin: 10/25/17 13:10 Dose: 4 mg Pantoprazole Sodium (Protonix Ec Tab) 20 mg PO DAILY [facility] Last Admin: 10/30/17 08:55 Dose: 20 mg Sitagliptin Phosphate (Januvia) 100 mg PO DAILY [facility] Last Admin: 10/30/17 08:55 Dose: 100 mg - Labs Labs: 10/30/17 05:26 10/30/17 09:32 PT 14.9 Seconds (9.8-13.1) H 10/30/17 05:26 INR 1.3 (0.9-1.2) H 10/30/17 05:26 APTT 30.9 Seconds (25.6-37.1) 10/30/17 05:26 - Constitutional Appears: Well, Non-toxic, No Acute Distress - Head Exam Head Exam: ATRAUMATIC, NORMOCEPHALIC - Eye Exam Eye Exam: EOMI, PERRL Pupil Exam: PERRL - ENT Exam ENT Exam: Mucous Membranes Moist - Neck Exam Neck Exam: Full ROM. absent: Tenderness - Respiratory Exam Respiratory Exam: Respiratory Distress - Cardiovascular Exam Cardiovascular Exam: REGULAR RHYTHM - GI/Abdominal Exam GI & Abdominal Exam: Soft. absent: Distended, Firm, Guarding, Rigid - Rectal Exam Rectal Exam: Deferred - Extremities Exam Extremities Exam: Normal Inspection - Neurological Exam Neurological Exam: Alert, Awake, Oriented x3 - Psychiatric Exam Psychiatric exam: Normal Affect, Normal Mood - Skin Skin Exam: Intact, Normal Color, Warm Assessment and Plan - Assessment and Plan (Free Text) Assessment: 86 year old female PMH CAD, HTN, AFib, hypothyroid, diabetes mellitus with one month history of increased dyspnea, normal echo in November,presented to ER for evaluation found to be anemic on admission with H/H 5.8/19.2. 2 UNITS PRBC were transfused 10/22/17 with a third unit transfused 10/23/17. CT abdomen showed diverticulosis and mild acute diverticulitis. Patient started on IVF , Cipro and Flagyl. Occult blood reported as negative. GI and ID were consulted. Patient clinically improving , tolerating pO intake.Advised to continue Cipro and flagyl for total 10 days . Colonoscopy as outpatient in 6 weeks.Received Venofer IV and started on Ferrous sulfate Po . Less lethargic today , responding to verbal command. ABG showed ph 7.28 PCO2 60 on 10/27. Patient has sleep apnea and has not been using CPAP while in hospital. Pulmonary consulted and placed on Bipap 10/27. PCO2 44 on 10/28 . Repeat ABG Patient for TCU today or tomorrow pending ABG. Overnight patient refusing BIPAP so was placed on high flow O2 30 LPM FIO2 35 %. This Am complaining of SOB and feeling tired , Repeat ABG showed ph 7.4 PCO2 44 PO2 82 Na 125 Changed to 3 L O2 via NC . CPAp at night time ASA and plavix resumed since patient is not actively bleeding and occult blood is negative. H & H stable after transfusion Tolerating PO intake and had regular BM. Continue Cipro and Flagyl for total 10 days. Na 128 ,low but stable. Urine lytes sent and nephro consulted Chest CT: Large b/l pleural effusions. Accompanying compressive atelectasis at the lung bases. Findings likely related to CHF. No evidence of PE Patient had thoracentesis on 10/30 with 600 cc of straw colored fluid removed. States that her breathing is much improved after the procedure. Pt to resume regular diet Plan: 1. Anemia - Most likely due to bleed from diverticulosis/ diverticulitis. No active bleed at present, occult blood is negative - s/p 3 units of PRBC total transfused since admission - H/H, 8.3/27.2 - Continue Feosol, ASA, plavix - Colonoscopy as outpatient 2. Diverticulitis - Abdomen/pelvis CT: Severe diverticulosis affecting descending colon and sigmoid. Mild acute sigmoid diverticulitis - Received Cipro 400mg IV q12 and Flagyl 500 IV q8 - advanced diet to consistent carb diet - GI consult appreciated - occult blood negative for bleed - Stool culture: No salmonella, shigella, or campylobacter isolated - Will continue Cipro and flagyl for 10 days . Outpatient colonoscopy after 6 weeks 3. Acute hypercarbic respiratory failure - Thorocentesis performed today. 600 cc fluid removed - Pulmonology consulted - O2 sat 96% w/ high flow nasal canula - Continue albuterol - DC CPAP at night for sleep, start high flow nasal canula - F/u CXR - Vital signs q4h 4. Paroxysmal Atrial Fibrillation - SR - Continue amiodarone, ASA 5. Diabtets Mellitus - Controlled - POC glucose 93 - Random glucose 69 - Continue humalog, metformin, Januvia - Accucheck - Diabetic diet - IRSS 6. HTN - BP 138/63 - Continue Norvasc, Lipitor, Imdur, Cozaar - Controlled - Monitor 7. Hypothyroidism - TSH 8.87 - Continue Synthroid 9. DJD, shoulder - Continue tylenol, prn pain 10. DVT prophylaxis - SCDs - Continue ASA, plavix 11. Depression - Hold Citalopram [CeleXA] 10 mg PO DAILY - HOLD - DC Pregabalin [Lyrica] 50 mg PO HS 12. Hyponetremia - Na 128 - restrict PO fluid intake - ? medication side effect - Monitor
--- NOTE | 2017-10-30 16:47 | RAD ---
PROCEDURE: CHEST RADIOGRAPH, 1 VIEW HISTORY: s/p right thoracentesis, evaluate for PTX COMPARISON: Frontal chest radiograph 10/22/2017. FINDINGS: LUNGS: Inspiratory volume appears diminished with left basilar atelectasis or infiltrate identified in the interval. None is seen the right. PLEURA: No pneumothorax or pleural fluid seen. CARDIOVASCULAR: Stable cardiomegaly. No pulmonary vascular derangement appreciated at this time. OSSEOUS STRUCTURES: No significant abnormalities. VISUALIZED UPPER ABDOMEN: Normal. OTHER FINDINGS: None. IMPRESSION: Left basilar atelectasis or infiltrate identified in the interval. No definite pneumothorax or pleural effusion bilaterally.
[2017-10-31] MEDS: metroNIDAZOLE 500mg/100ml NS 100 ML IVPB SCH ×2 (00:56→09:35)
[2017-10-31 05:40] LABS: HEMATOCRIT 27.6 % (34.0-47.0); MEAN CORPUSCULAR HEMOGLOBIN 24.1 pg (27.0-31.0); MEAN CORPUSCULAR HGB CONC 30.5 g/dL (33.0-37.0); RED CELL DISTRIBUTION WIDTH 26.9 % (11.5-14.5); WHITE BLOOD COUNT 6.6 K/uL (4.8-10.8)
[2017-10-31] MEDS ORDERED: Levothyroxine 200 MCG TAB PO SCH (06:30)
[2017-10-31 06:42] LABS: BLOOD UREA NITROGEN 2 mg/dl (7-17); CALCIUM 8.4 mg/dL (8.4-10.2); CARBON DIOXIDE 31 mmol/L (22-30); CHLORIDE 99 mmol/L (98-107); GFR AFRICAN-AMERICAN > 60; GLUCOSE,RANDOM 110 mg/dL (65-105); POTASSIUM 3.6 MMOL/L (3.6-5.0); SODIUM 135 mmol/l (132-148)
[2017-10-31] MEDS: Albuterol-Ipratrop 3 mg / 0.5 (3 ml) UD INH SCH ×2 (07:31→11:55)
[2017-10-31] MEDS: Ciprofloxacin 400mg/200ml D5W 400 MG/200 ML BAG IVPB SCH (09:36)
[2017-10-31] MEDS: Pantoprazole 20 mg EC Tab PO SCH (09:37)
[2017-10-31] MEDS: Insulin Lispro (humaLOG) 100 Units/ml Inj SC SCH ×2 (09:38→12:38)
[2017-10-31] MEDS: Olopatadine 0.1% Opht SOLN OU SCH (09:40)
--- NOTE | 2017-10-31 10:21 | CP.PCM.PN ---
Subjective - Date & Time of Evaluation Date of Evaluation: 10/31/17 Time of Evaluation: 10:18 - Subjective Subjective: Patient sitting in the chair Feeling much better and less shortness of breath Patient has good appetite Thank communicating well No nausea no vomiting Objective - Vital Signs/Intake and Output Vital Signs (last 24 hours): Temp Pulse Resp BP Pulse Ox 98.3 F 72 20 130/65 95 10/31/17 08:00 10/31/17 09:40 10/31/17 08:00 10/31/17 09:40 10/31/17 08:00 - Medications Medications: Current Medications Acetaminophen (Tylenol 325mg Tab) 650 mg PO Q6 PRN PRN Reason: Fever >100.4 F Last Admin: 10/24/17 23:43 Dose: 650 mg Acetaminophen (Tylenol 325mg Tab) 650 mg PO Q6 PRN PRN Reason: Other Last Admin: 10/23/17 08:30 Dose: 650 mg Al Hydrox/Mg Hydrox/Simethicone (Maalox Plus 30 Ml) 30 ml PO Q6 PRN PRN Reason: Indigestion / Heartburn Last Admin: 10/23/17 23:18 Dose: 30 ml Albuterol/Ipratropium (Duoneb 3 Mg/0.5 Mg (3 Ml) Ud) 3 ml INH RQID [facility] Last Admin: 10/31/17 07:31 Dose: 3 ml Amiodarone HCl (Cordarone) 100 mg PO DAILY [facility] Last Admin: 10/31/17 09:36 Dose: 100 mg Amlodipine Besylate (Norvasc) 5 mg PO DAILY [facility] Last Admin: 10/31/17 09:40 Dose: 5 mg Aspirin (Ecotrin) 81 mg PO DAILY [facility] Last Admin: 10/31/17 09:38 Dose: 81 mg Atorvastatin Calcium (Lipitor) 40 mg PO DAILY [facility] Last Admin: 10/31/17 09:39 Dose: 40 mg Clopidogrel Bisulfate (Plavix) 75 mg PO DAILY [facility] Last Admin: 10/31/17 09:38 Dose: 75 mg Ferrous Sulfate (Feosol) 325 mg PO BID [facility] Last Admin: 10/31/17 09:38 Dose: 325 mg Ciprofloxacin (Cipro 400mg/200ml Dsw) 400 mg in 200 mls @ 200 mls/hr IVPB Q12 [facility] PRN Reason: Protocol Last Admin: 10/31/17 09:36 Dose: 200 mls/hr Metronidazole (Flagyl 500mg/100ml Ns) 100 mls @ 100 mls/hr IVPB Q8 [facility] PRN Reason: Protocol Last Admin: 10/31/17 09:35 Dose: 100 mls/hr Insulin Human Lispro (Humalog) 0 units SC ACHS [facility] PRN Reason: Protocol Last Admin: 10/31/17 09:38 Dose: Not Given Isosorbide Mononitrate (Imdur Er) 30 mg PO DAILY [facility] Last Admin: 10/31/17 09:39 Dose: 30 mg Levothyroxine Sodium (Synthroid) 200 mcg PO DAILY@0630 [facility] Last Admin: 10/31/17 06:58 Dose: 200 mcg Losartan Potassium (Cozaar) 50 mg PO DAILY [facility] Last Admin: 10/31/17 09:39 Dose: 50 mg Metformin HCl (Glucophage) 1,000 mg PO BID [facility] Last Admin: 10/31/17 09:37 Dose: 1,000 mg Olopatadine HCl (Patanol 0.1% Opht Soln) 1 drop OU DAILY [facility] Last Admin: 10/31/17 09:40 Dose: 1 drop Ondansetron HCl (Zofran Inj) 4 mg IVP Q6 PRN PRN Reason: Nausea/Vomiting Last Admin: 10/25/17 13:10 Dose: 4 mg Pantoprazole Sodium (Protonix Ec Tab) 20 mg PO DAILY [facility] Last Admin: 10/31/17 09:37 Dose: 20 mg Sitagliptin Phosphate (Januvia) 100 mg PO DAILY [facility] Last Admin: 10/31/17 09:38 Dose: 100 mg - Labs Labs: 10/31/17 05:15 10/31/17 05:15 PT 14.9 Seconds (9.8-13.1) H 10/30/17 05:26 INR 1.3 (0.9-1.2) H 10/30/17 05:26 APTT 30.9 Seconds (25.6-37.1) 10/30/17 05:26 - Constitutional Appears: No Acute Distress - ENT Exam ENT Exam: Mucous Membranes Moist - Neck Exam Neck Exam: absent: Lymphadenopathy - Cardiovascular Exam Cardiovascular Exam: absent: JVD, Rubs - GI/Abdominal Exam GI & Abdominal Exam: Soft, Normal Bowel Sounds - Extremities Exam Extremities Exam: absent: Calf Tenderness - Back Exam Back Exam: absent: CVA tenderness (L), CVA tenderness (R) - Psychiatric Exam Psychiatric exam: Normal Affect - Skin Skin Exam: absent: Cyanosis Assessment and Plan (1) Hyponatremia Assessment & Plan: Serum sodium came up to 135 this morning. She responded to 15 mg of Tolvaptan was given yesterday. Repeat serum sodium tomorrow if continued to drop again we will give another dose of Samsca. Status post thoracocentesis. Diverticulitis receiving antibiotics Diabetes mellitus Admitted function normal The rest of the electrolytes unremarkable. Status: Acute
--- NOTE | 2017-10-31 10:53 | CP.PCM.PN ---
Subjective - Date & Time of Evaluation Date of Evaluation: 10/31/17 Time of Evaluation: 10:46 - Subjective Subjective: Seated in bedside chair, awake and alert. Conversing normally today, memory is clear. Had thoracentesis yesterday with removal of 600 ml's of transudative fluid. Followup CXR looks about the same. Electrolytes corrected with one dose of Tolvaptan yesterday. Has remained on HF nasal canula all day yesterday, and overnight. Trace ankle edema today w/o cyanosis. SpO2 96%, HR 60 BPM, RR 14 BPM. Neck is supple and trachea midline. Dressing in place over right lung base postero-laterally. Breath sounds are well heard bilaterally with few rhonchi in LL's. No audible wheezes or bronchial breath sounds. Dry rales in LL's. Heart sounds are well heard and regular. Post removal of 600 cc's sub-pulmonic pleural fluid. BAR with improved cognition/wakefulness using High-Flow nasal canula. Hypercapnia-improved (related to BAR). Bronchial asthma by history-stable. Anemia-improved post-transfusion. Diverticulitis-on antibiotics. Electrolyte imbalance-improved. ?diastolic dysfunction with CHF? Would continue overnight use of HFNC (daytime use also if she develops somnolence). Regular nasal canula at 3 LPM daytime and 4 LPM for Physical Therapy. Discussed with her the need to use her nCPAP when she returns home. She could be discharged to TCU from a pulmonary standpoint. Objective - Vital Signs/Intake and Output Vital Signs (last 24 hours): Temp Pulse Resp BP Pulse Ox 98.3 F 72 20 130/65 95 10/31/17 08:00 10/31/17 09:40 10/31/17 08:00 10/31/17 09:40 10/31/17 08:00 - Medications Medications: Current Medications Acetaminophen (Tylenol 325mg Tab) 650 mg PO Q6 PRN PRN Reason: Fever >100.4 F Last Admin: 10/24/17 23:43 Dose: 650 mg Acetaminophen (Tylenol 325mg Tab) 650 mg PO Q6 PRN PRN Reason: Other Last Admin: 10/23/17 08:30 Dose: 650 mg Al Hydrox/Mg Hydrox/Simethicone (Maalox Plus 30 Ml) 30 ml PO Q6 PRN PRN Reason: Indigestion / Heartburn Last Admin: 10/23/17 23:18 Dose: 30 ml Albuterol/Ipratropium (Duoneb 3 Mg/0.5 Mg (3 Ml) Ud) 3 ml INH RQID [facility] Last Admin: 10/31/17 07:31 Dose: 3 ml Amiodarone HCl (Cordarone) 100 mg PO DAILY [facility] Last Admin: 10/31/17 09:36 Dose: 100 mg Amlodipine Besylate (Norvasc) 5 mg PO DAILY [facility] Last Admin: 10/31/17 09:40 Dose: 5 mg Aspirin (Ecotrin) 81 mg PO DAILY [facility] Last Admin: 10/31/17 09:38 Dose: 81 mg Atorvastatin Calcium (Lipitor) 40 mg PO DAILY [facility] Last Admin: 10/31/17 09:39 Dose: 40 mg Clopidogrel Bisulfate (Plavix) 75 mg PO DAILY [facility] Last Admin: 10/31/17 09:38 Dose: 75 mg Ferrous Sulfate (Feosol) 325 mg PO BID [facility] Last Admin: 10/31/17 09:38 Dose: 325 mg Ciprofloxacin (Cipro 400mg/200ml Dsw) 400 mg in 200 mls @ 200 mls/hr IVPB Q12 [facility] PRN Reason: Protocol Last Admin: 10/31/17 09:36 Dose: 200 mls/hr Metronidazole (Flagyl 500mg/100ml Ns) 100 mls @ 100 mls/hr IVPB Q8 [facility] PRN Reason: Protocol Last Admin: 10/31/17 09:35 Dose: 100 mls/hr Insulin Human Lispro (Humalog) 0 units SC ACHS [facility] PRN Reason: Protocol Last Admin: 10/31/17 09:38 Dose: Not Given Isosorbide Mononitrate (Imdur Er) 30 mg PO DAILY [facility] Last Admin: 10/31/17 09:39 Dose: 30 mg Levothyroxine Sodium (Synthroid) 200 mcg PO DAILY@0630 [facility] Last Admin: 10/31/17 06:58 Dose: 200 mcg Losartan Potassium (Cozaar) 50 mg PO DAILY [facility] Last Admin: 10/31/17 09:39 Dose: 50 mg Metformin HCl (Glucophage) 1,000 mg PO BID [facility] Last Admin: 10/31/17 09:37 Dose: 1,000 mg Olopatadine HCl (Patanol 0.1% Opht Soln) 1 drop OU DAILY [facility] Last Admin: 10/31/17 09:40 Dose: 1 drop Ondansetron HCl (Zofran Inj) 4 mg IVP Q6 PRN PRN Reason: Nausea/Vomiting Last Admin: 10/25/17 13:10 Dose: 4 mg Pantoprazole Sodium (Protonix Ec Tab) 20 mg PO DAILY [facility] Last Admin: 10/31/17 09:37 Dose: 20 mg Sitagliptin Phosphate (Januvia) 100 mg PO DAILY [facility] Last Admin: 10/31/17 09:38 Dose: 100 mg - Labs Labs: 10/31/17 05:15 10/31/17 05:15 PT 14.9 Seconds (9.8-13.1) H 10/30/17 05:26 INR 1.3 (0.9-1.2) H 10/30/17 05:26 APTT 30.9 Seconds (25.6-37.1) 10/30/17 05:26 Assessment and Plan (1) Acute hypercapnic respiratory failure due to obstructive sleep apnea Assessment & Plan: Resolved with High-Flow Nasal Canula to replace her nCPAP while hospitalized. Status: Resolved (2) Diverticulitis Status: Acute (3) Asthma Status: Chronic (4) Hypertension Status: Chronic (5) Hypothyroidism Status: Chronic (6) Diabetes mellitus, type II Status: Chronic (7) Pleural effusion Assessment & Plan: Sub-pulmonic effusion, resolved with thoracentesis. Status: Resolved
--- NOTE | 2017-10-31 11:37 | CP.PCM.DIS ---
Provider - Provider Date of Admission: 10/22/17 16:09 Attending physician: Yane Bond DO Primary care physician: Dr. Dayne Duran Consults: Infectious disease: Dr. Garcia Nephrology: Dr. Gil Pulmonology: Dr. Sorto Time Spent in preparation of Discharge (in minutes): 15 Diagnosis - Discharge Diagnosis (1) Paroxysmal atrial fibrillation Status: Acute (2) Depression Status: Chronic (3) Hyponatremia Status: Acute (4) Anemia Status: Chronic Priority: Low (5) Acute hypercapnic respiratory failure due to obstructive sleep apnea Status: Resolved Priority: High (6) Diverticulitis Status: Acute Priority: High (7) Diabetes mellitus, type II Status: Chronic Priority: High (8) Hypertension Status: Chronic Priority: Medium (9) Hypothyroidism Status: Chronic Priority: Medium (10) Shoulder pain, acute Status: Chronic Priority: Medium Hospital Course - Lab Results Lab Results: Micro Results 10/30/17 12:33 Pleural Fluid Gram Stain - Final 10/24/17 23:59 Blood-Venous Blood Culture - Final NO GROWTH AFTER 5 DAYS 10/24/17 23:59 Blood-Venous Gram Stain - Final TEST NOT PERFORMED 10/24/17 23:45 Blood-Venous Blood Culture - Final NO GROWTH AFTER 5 DAYS 10/24/17 23:45 Blood-Venous Gram Stain - Final TEST NOT PERFORMED 10/26/17 09:45 Stool Stool Culture - Final NO SALMONELLA, SHIGELLA OR CAMPYLOBACTER ISOLATED. 10/26/17 09:45 Stool Ova and Parasite Concentrate Exam - Final Most Recent Lab Values WBC 6.6 K/uL (4.8-10.8) 10/31/17 05:15 RBC 3.49 Mil/uL (3.80-5.20) L 10/31/17 05:15 Hgb 8.4 g/dL (12.0-16.0) L 10/31/17 05:15 Hct 27.6 % (34.0-47.0) L 10/31/17 05:15 MCV 79.0 fl (81.0-99.0) L 10/31/17 05:15 MCH 24.1 pg (27.0-31.0) L 10/31/17 05:15 MCHC 30.5 g/dL (33.0-37.0) L 10/31/17 05:15 RDW 26.9 % (11.5-14.5) H 10/31/17 05:15 Plt Count 202 K/uL (130-400) 10/31/17 05:15 MPV 7.9 fl (7.2-11.7) 10/26/17 06:30 Neut % (Auto) 75.8 % (50.0-75.0) H 10/26/17 06:30 Lymph % (Auto) 12.8 % (20.0-40.0) L 10/26/17 06:30 [place] % (Auto) 10.2 % (0.0-10.0) H 10/26/17 06:30 Eos % (Auto) 0.7 % (0.0-4.0) 10/26/17 06:30 Baso % (Auto) 0.5 % (0.0-2.0) 10/26/17 06:30 Neut # 7.1 K/uL (1.8-7.0) H 10/26/17 06:30 Lymph # 1.2 K/uL (1.0-4.3) 10/26/17 06:30 [place] # 1.0 K/uL (0.0-0.8) H 10/26/17 06:30 Eos # 0.1 K/uL (0.0-0.7) 10/26/17 06:30 Baso # 0.0 K/uL (0.0-0.2) 10/26/17 06:30 Retic Count 3.0 % (0.5-1.5) H D 10/23/17 08:30 Haptoglobin 136 mg/dL (43-212) 10/23/17 09:46 PT 14.9 Seconds (9.8-13.1) H 10/30/17 05:26 INR 1.3 (0.9-1.2) H 10/30/17 05:26 APTT 30.9 Seconds (25.6-37.1) 10/30/17 05:26 pCO2 49 mm/Hg (35-45) H 10/29/17 09:19 pO2 96 mm/Hg (80-100) 10/29/17 09:19 HCO3 28.8 mmol/L (21-28) H 10/29/17 09:19 ABG pH 7.40 (7.35-7.45) 10/29/17 09:19 ABG Total CO2 31.9 mmol/L (22-28) H 10/29/17 09:19 ABG O2 Saturation 99.4 % (95-98) H 10/29/17 09:19 ABG O2 Content 11.6 ML/dL (15-23) L 10/29/17 09:19 ABG Base Excess 4.9 mmol/L (-2.0-3.0) H 10/29/17 09:19 ABG Hemoglobin 8.4 g/dL (11.7-17.4) L 10/29/17 09:19 ABG Carboxyhemoglobin 1.9 % (0.5-1.5) H 10/29/17 09:19 POC ABG HHb (Measured) 0.6 % (0.0-5.0) 10/29/17 09:19 ABG Methemoglobin 0.8 % (0.0-3.0) 10/29/17 09:19 ABG O2 Capacity 11.7 mL/dL (16-24) L 10/29/17 09:19 Fredi Test Yes 10/29/17 09:19 A-a O2 Difference 78.0 mm/Hg 10/29/17 09:19 Hgb O2 Saturation 96.7 % (95.0-98.0) 10/29/17 09:19 FiO2 33.0 % 10/29/17 09:19 Blood Gas Comments 3l/m nc,rr,pilo worthy 10/29/17 09:19 Crit Value Called To pilo flores 10/29/17 09:19 Crit Value Read Back y 10/29/17 09:19 Sodium 135 mmol/l (132-148) 10/31/17 05:15 Potassium 3.6 MMOL/L (3.6-5.0) 10/31/17 05:15 Chloride 99 mmol/L (98-107) 10/31/17 05:15 Carbon Dioxide 31 mmol/L (22-30) H 10/31/17 05:15 Anion Gap 9 (10-20) L 10/31/17 05:15 BUN 2 mg/dl (7-17) L 10/31/17 05:15 Creatinine 0.5 mg/dl (0.7-1.2) L 10/31/17 05:15 Est GFR ( Amer) > 60 10/31/17 05:15 Est GFR (Non-Af Amer) > 60 10/31/17 05:15 POC Glucose (mg/dL) 126 mg/dL (65-110) H 10/31/17 11:07 Random Glucose 110 mg/dL (65-105) H 10/31/17 05:15 Calcium 8.4 mg/dL (8.4-10.2) 10/31/17 05:15 Phosphorus 3.9 mg/dl (2.5-4.5) 10/24/17 21:05 Magnesium 2.2 MG/DL (1.6-2.3) 10/24/17 21:05 Iron 94 ug/dL (37-170) 10/23/17 08:30 TIBC 440 ug/dL (250-450) 10/23/17 08:30 % Saturation 21 % (20-55) 10/23/17 08:30 Ferritin 5.2 ng/Ml (11.1-264.0) L 10/23/17 02:15 Lactate Dehydrogenase 557 U/L (313-618) 10/30/17 10:15 Troponin I < 0.0120 ng/mL (0.00-0.120) 10/23/17 02:15 NT-Pro-B Natriuret Pep 1030 pg/ml (0-900) H 10/22/17 13:50 Free T4 1.12 ng/dL (0.78-2.19) 10/24/17 04:45 Free T3 pg/mL 1.93 pg/mL (2.77-5.27) L 10/24/17 04:45 TSH 3rd Generation 8.87 mIU/ML (0.46-4.68) H 10/23/17 10:06 Urine Color Yellow (YELLOW) 10/22/17 15:35 Urine Clarity Clear (Clear) 10/22/17 15:35 Urine pH 7.0 (5.0-8.0) 10/22/17 15:35 Ur Specific [place] 1.011 (1.003-1.030) 10/22/17 15:35 Urine Protein Negative mg/dL (NEGATIVE) 10/22/17 15:35 Urine Glucose (UA) Neg mg/dL (Normal) 10/22/17 15:35 Urine Ketones Negative mg/dL (NEGATIVE) 10/22/17 15:35 Urine Blood Negative (NEGATIVE) 10/22/17 15:35 Urine Nitrate Negative (NEGATIVE) 10/22/17 15:35 Urine Bilirubin Negative (NEGATIVE) 10/22/17 15:35 Urine Urobilinogen 0.2-1.0 mg/dL (0.2-1.0) 10/22/17 15:35 Ur Leukocyte Esterase Trace Olvin/uL (Negative) 10/22/17 15:35 Urine RBC (Auto) 1 /hpf (0-3) 10/22/17 15:35 Urine Microscopic WBC 1 /hpf (0-5) 10/22/17 15:35 Ur Squamous Epith Cells < 1 /hpf (0-5) 10/22/17 15:35 Urine Osmolality 513 mosm/kg (300-1000) 10/29/17 07:30 Ur Random Creatinine 105.1 mg/dL 10/29/17 07:30 Ur Random Sodium 27 mmol/L 10/29/17 07:30 Ur Random Potassium 28.9 mmol/L 10/29/17 07:30 Fluid Source Pleural/thoracentesi 10/30/17 12:33 Fluid Appearance Clear (CLEAR) 10/30/17 12:33 Fluid WBC 27.0 /mm3 (0.0-300.0) 10/30/17 12:33 Fluid RBC 861.0 /mm3 (0.0-0.0) H 10/30/17 12:33 Fluid Tot Cell Count TEST NOT PERFORMED 10/30/17 12:33 Fluid Neutrophils 3.0 % (0-0) H 10/30/17 12:33 Fluid Lymphocytes 30.0 % (0-0) H 10/30/17 12:33 Fld Monocyte/Macrophag 7 % (0-0) H 10/30/17 12:33 Fluid Glucose 105 mg/dL (NONE ESTABLISHED) 10/30/17 12:33 Fluid Total Protein < 2.0 g/dL (NONE ESTABLISHED) 10/30/17 12:33 Fluid LDH 201 IU (NONE ESTABLISHED) 10/30/17 12:33 Fluid Comment Yellow 10/30/17 12:33 Stool Occult Blood Negative (NEGATIVE) 10/26/17 09:45 C. difficile Ag & Toxin Negative (NEGATIVE) 10/25/17 17:48 Blood Type O NEGATIVE 10/22/17 15:35 Antibody Screen Positive 10/22/17 15:35 Antibody Identification Anti D 10/22/17 15:35 Crossmatch See Detail 10/22/17 15:35 BBK History Checked Patient has bt 10/22/17 15:35 - Hospital Course Hospital Course: 86 year old female PMH CAD, HTN, AFib, hypothyroid, diabetes mellitus with one month history of increased dyspnea, normal echo in November,presented to ER for evaluation found to be anemic on admission with H/H 5.8/19.2. 2 UNITS PRBC were transfused 10/22/17 with a third unit transfused 10/23/17. CT abdomen showed diverticulosis and mild acute diverticulitis. Patient started on IVF , Cipro and Flagyl. Occult blood reported as negative. GI and ID were consulted. Patient clinically improving , tolerating pO intake.Advised to continue Cipro and flagyl for total 10 days . Colonoscopy as outpatient in 6 weeks.Received Venofer IV and started on Ferrous sulfate Po . Less lethargic today , responding to verbal command. ABG showed ph 7.28 PCO2 60 on 10/27. Patient has sleep apnea and has not been using CPAP while in hospital. Pulmonary consulted and placed on Bipap 10/27. PCO2 44 on 10/28 . Repeat ABG Patient for TCU today or tomorrow pending ABG. Overnight patient refusing BIPAP so was placed on high flow O2 30 LPM FIO2 35 %. This Am complaining of SOB and feeling tired , Repeat ABG showed ph 7.4 PCO2 44 PO2 82 Na 125 Changed to 3 L O2 via NC . CPAp at night time ASA and plavix resumed since patient is not actively bleeding and occult blood is negative. H & H stable after transfusion Tolerating PO intake and had regular BM. Continue Cipro and Flagyl for total 10 days. Na 128 ,low but stable. Urine lytes sent and nephro consulted Chest CT: Large b/l pleural effusions. Accompanying compressive atelectasis at the lung bases. Findings likely related to CHF. No evidence of PE Patient had thoracentesis on 10/30 with 600 cc of straw colored fluid removed. States that her breathing is much improved after the procedure. Chest xray post thoracentesis 10/30/17: L basilar atelectasis or infiltrate identified in the interval. No definite pneumothorax or pleural effsion b/l Pt to resume regular diet Patient to be transferred to TCU 10/31/17 - Date & Time of H&P Date of H&P: 10/31/17 Time of H&P: 11:53 Discharge Exam - Head Exam Head Exam: ATRAUMATIC, NORMOCEPHALIC - Eye Exam Eye Exam: EOMI, PERRL Pupil Exam: PERRL - ENT Exam ENT Exam: Mucous Membranes Moist - Neck Exam Neck exam: Normal Inspection - Respiratory Exam Respiratory Exam: NORMAL BREATHING PATTERN, UNREMARKABLE - Cardiovascular Exam Cardiovascular Exam: REGULAR RHYTHM - GI/Abdominal Exam GI & Abdominal Exam: Soft. absent: Distended, Firm, Guarding, Hernia - Rectal Exam Rectal Exam: Deferred - Extremities Exam Extremities exam: normal capillary refill, normal inspection - Neurological Exam Neurological exam: Alert, Oriented x3 - Psychiatric Exam Psychiatric exam: Normal Affect, Normal Mood - Skin Skin Exam: Intact, Normal Color, Warm Discharge Plan - Discharge Medications Prescriptions: Ciprofloxacin HCl [Cipro] 250 mg PO Q12 #14 tab Metronidazole [Flagyl] 500 mg PO TID #21 tab - Follow Up Plan Condition: STABLE Disposition: TRANSF TO SNF Instructions: Heart Failure (DC), Anemia (DC) Referrals: Easton Chen MD [Medical Doctor] - Hemant Sorto MD [Staff Provider] -
[2017-10-31 13:04] VITALS: BP 131/71; PULSE 60; RESP 18; TEMP 98; O2SAT 97
--- NOTE | 2017-10-31 13:21 | CP.PCM.PN ---
Subjective - Date & Time of Evaluation Date of Evaluation: 10/31/17 Time of Evaluation: 09:00 - Subjective Subjective: no fever or abd pain alert awake poor appetite Objective - Vital Signs/Intake and Output Vital Signs (last 24 hours): Temp Pulse Resp BP Pulse Ox 98 F 60 18 131/71 97 10/31/17 13:00 10/31/17 13:00 10/31/17 13:00 10/31/17 13:00 10/31/17 13:00 - Medications Medications: Current Medications Acetaminophen (Tylenol 325mg Tab) 650 mg PO Q6 PRN PRN Reason: Fever >100.4 F Last Admin: 10/24/17 23:43 Dose: 650 mg Acetaminophen (Tylenol 325mg Tab) 650 mg PO Q6 PRN PRN Reason: Other Last Admin: 10/23/17 08:30 Dose: 650 mg Al Hydrox/Mg Hydrox/Simethicone (Maalox Plus 30 Ml) 30 ml PO Q6 PRN PRN Reason: Indigestion / Heartburn Last Admin: 10/23/17 23:18 Dose: 30 ml Albuterol/Ipratropium (Duoneb 3 Mg/0.5 Mg (3 Ml) Ud) 3 ml INH RQID [facility] Last Admin: 10/31/17 11:55 Dose: 3 ml Amiodarone HCl (Cordarone) 100 mg PO DAILY [facility] Last Admin: 10/31/17 09:36 Dose: 100 mg Amlodipine Besylate (Norvasc) 5 mg PO DAILY [facility] Last Admin: 10/31/17 09:40 Dose: 5 mg Aspirin (Ecotrin) 81 mg PO DAILY [facility] Last Admin: 10/31/17 09:38 Dose: 81 mg Atorvastatin Calcium (Lipitor) 40 mg PO DAILY [facility] Last Admin: 10/31/17 09:39 Dose: 40 mg Clopidogrel Bisulfate (Plavix) 75 mg PO DAILY [facility] Last Admin: 10/31/17 09:38 Dose: 75 mg Ferrous Sulfate (Feosol) 325 mg PO BID [facility] Last Admin: 10/31/17 09:38 Dose: 325 mg Ciprofloxacin (Cipro 400mg/200ml Dsw) 400 mg in 200 mls @ 200 mls/hr IVPB Q12 JOSE A PRN Reason: Protocol Last Admin: 10/31/17 09:36 Dose: 200 mls/hr Metronidazole (Flagyl 500mg/100ml Ns) 100 mls @ 100 mls/hr IVPB Q8 JOSE A PRN Reason: Protocol Last Admin: 10/31/17 09:35 Dose: 100 mls/hr Insulin Human Lispro (Humalog) 0 units SC ACHS JOSE A PRN Reason: Protocol Last Admin: 10/31/17 12:38 Dose: Not Given Isosorbide Mononitrate (Imdur Er) 30 mg PO DAILY [facility] Last Admin: 10/31/17 09:39 Dose: 30 mg Levothyroxine Sodium (Synthroid) 200 mcg PO DAILY@0630 [facility] Last Admin: 10/31/17 06:58 Dose: 200 mcg Losartan Potassium (Cozaar) 50 mg PO DAILY [facility] Last Admin: 10/31/17 09:39 Dose: 50 mg Metformin HCl (Glucophage) 1,000 mg PO BID [facility] Last Admin: 10/31/17 09:37 Dose: 1,000 mg Olopatadine HCl (Patanol 0.1% Opht Soln) 1 drop OU DAILY [facility] Last Admin: 10/31/17 09:40 Dose: 1 drop Ondansetron HCl (Zofran Inj) 4 mg IVP Q6 PRN PRN Reason: Nausea/Vomiting Last Admin: 10/25/17 13:10 Dose: 4 mg Pantoprazole Sodium (Protonix Ec Tab) 20 mg PO DAILY [facility] Last Admin: 10/31/17 09:37 Dose: 20 mg Sitagliptin Phosphate (Januvia) 100 mg PO DAILY [facility] Last Admin: 10/31/17 09:38 Dose: 100 mg - Labs Labs: 10/31/17 05:15 10/31/17 05:15 PT 14.9 Seconds (9.8-13.1) H 10/30/17 05:26 INR 1.3 (0.9-1.2) H 10/30/17 05:26 APTT 30.9 Seconds (25.6-37.1) 10/30/17 05:26 - Constitutional Appears: Non-toxic, Chronically Ill - Head Exam Head Exam: NORMOCEPHALIC - Eye Exam Eye Exam: PERRL - ENT Exam ENT Exam: Mucous Membranes Dry - Neck Exam Neck Exam: absent: Lymphadenopathy - Respiratory Exam Respiratory Exam: Decreased Breath Sounds - Cardiovascular Exam Cardiovascular Exam: REGULAR RHYTHM - GI/Abdominal Exam GI & Abdominal Exam: Distended, Soft. absent: Tenderness - Rectal Exam Rectal Exam: Deferred - Exam Exam: NORMAL INSPECTION Assessment and Plan (1) Chronic congestive heart failure Status: Acute (2) Anemia Status: Chronic (3) CHF (congestive heart failure) Status: Acute (4) COPD (chronic obstructive pulmonary disease) Status: Acute (5) Diverticulitis Status: Acute - Assessment and Plan (Free Text) Assessment: cont rx x 14 days
--- NOTE | 2017-11-03 12:28 | PQF CHF ---
Dr. Mullen pt has a history of congestive heart failure. BNP was elevated at 1030 on 10/22. If known what is the acuity and type of congestive heart failure ? This form is a permanent part of the medical record Clarification of your documentation is requested to better reflect the severity of illness and intensity of treatment of your patient. Indicators present [x] Diagnosis of CHF and/or history of CHF [x] BNP > 200 [] Imaging Finding of Pulmonary Edema /Pleural Effusions [x] Fluid/Volume Overload [] Pitting edema [] Ejection Fraction < 40% (Indicative of Systolic Heart Failure) [] Ejection Fraction > 40% (Indicative of Diastolic Heart Failure) [] Dyspnea / Orthopenea / Paroxysmal Nocturnal Dyspnea [] Other: Location in the medical record that reflects the above clinical findings: [] Treatment Provided: [] PHYSICIAN'S RESPONSE PATIENT DOES NOT HAVE HEART FAILURE. SHE DOES NOT HAVE A HISTORY OF HEART FAILURE. BNP IS NOT DIAGNOSTIC NOR SPECIFIC FOR HEART FAILURE. PATIENT HAD NORMAL ECHOS IN BOTH 2015 AND 2017. NO HEART FAILURE. Based on your medical judgment of the clinical indicators outlined above, are you treating this patient for a known or suspected: [] Acute CHF [] Systolic [] Diastolic [] Combined [] Chronic CHF [] Systolic [] Diastolic [] Combined [] Acute on Chronic CHF []Systolic [] Diastolic [] Combined [] CHF due hypertension [] Acute systolic []Chronic systolic [] Acute/ chronic systolic [] Other, please indicate: [] [] If Unable to Determine, please check the box, sign and date. Present On Admission (POA) Indicator: [] Present at the time of admission [] Not present at the time of admission [] Clinically Undetermined In responding to this query, please exercise your independent professional judgment. The fact that a question is asked does not imply that any particular answer is desired or expected. Thank you for your clarification on this documentation. If you have any questions please call:[ ] * Thank you, [ ]Erin GONZALEZ Coder RACHELL
== END 2017-10-31 14:03 | DRG 811 ==
LOC: H.ER 11:54 → H.ERHOLD 16:09 → H.TEL 20:30
PROVIDERS: ADMIT Student in an Organized Health Care Education/Training Program; ATTEND Student in an Organized Health Care Education/Training Program
PROC: 30233N1 Transfusion of Nonautologous Red Blood Cells into Peripheral Vein, Percutaneous Approach (ICD-10-PCS; 2017-10-22)
PROC: 0W993ZX Drainage of Right Pleural Cavity, Percutaneous Approach, Diagnostic (ICD-10-PCS; principal; 2017-10-30)
DX: D50.0 Iron deficiency anemia secondary to blood loss (chronic) (principal); J96.02 Acute respiratory failure with hypercapnia; I48.0 Paroxysmal atrial fibrillation; K57.33 Diverticulitis of large intestine without perforation or abscess with bleeding; K57.31 Diverticulosis of large intestine without perforation or abscess with bleeding; J91.8 Pleural effusion in other conditions classified elsewhere; E87.1 Hypo-osmolality and hyponatremia; G25.81 Restless legs syndrome; J98.11 Atelectasis; J44.9 Chronic obstructive pulmonary disease, unspecified; E11.9 Type 2 diabetes mellitus without complications; G47.33 Obstructive sleep apnea (adult) (pediatric); I25.10 Atherosclerotic heart disease of native coronary artery without angina pectoris; E03.9 Hypothyroidism, unspecified; J45.909 Unspecified asthma, uncomplicated; E78.00 Pure hypercholesterolemia, unspecified; M19.019 Primary osteoarthritis, unspecified shoulder; F32.9 Major depressive disorder, single episode, unspecified; E78.5 Hyperlipidemia, unspecified; I10 Essential (primary) hypertension

== ENCOUNTER 2017-10-29 11:16 | Inpatient (IN) | payer MEDICARE, MEDICAID ==
[2017-10-31 14:19] VITALS: BMI 33.5
[2017-10-31] MEDS ORDERED: Alum-Mag Hydrox-Simethicone Susp (30 mL) PO PRN (14:35)
[2017-10-31] MEDS: Insulin Lispro (humaLOG) 100 Units/ml Inj SC SCH ×2 (17:04→22:35)
[2017-11-01] MEDS: Levothyroxine 200 MCG TAB PO SCH (06:31)
[2017-11-01] MEDS: Insulin Lispro (humaLOG) 100 Units/ml Inj SC SCH ×3 (07:44→16:51)
[2017-11-01 08:36] LABS: BLOOD UREA NITROGEN 3 mg/dl (7-17); CALCIUM 8.2 mg/dL (8.4-10.2); CARBON DIOXIDE 29 mmol/L (22-30); CHLORIDE 97 mmol/L (98-107); GFR AFRICAN-AMERICAN > 60; GLUCOSE,RANDOM 88 mg/dL (65-105); POTASSIUM 3.6 MMOL/L (3.6-5.0); SODIUM 133 mmol/l (132-148)
[2017-11-01 08:37] LABS: BASO # 0.1 K/uL (0.0-0.2); EOS # 0.2 K/uL (0.0-0.7); HEMATOCRIT 28.1 % (34.0-47.0); LYMPH # 1.8 K/uL (1.0-4.3); LYMPH % 24.6 % (20.0-40.0); MEAN CELL VOLUME 79.5 fl (81.0-99.0); MEAN CORPUSCULAR HEMOGLOBIN 23.9 pg (27.0-31.0); MEAN CORPUSCULAR HGB CONC 30.1 g/dL (33.0-37.0); MEAN PLATELET VOLUME 8.4 fl (7.2-11.7); MONO # 0.7 K/uL (0.0-0.8); MONO % 9.9 % (0.0-10.0); NEUT # 4.5 K/uL (1.8-7.0); NEUT % 61.5 % (50.0-75.0); NRBC % 0.1 % (0.0-0.0); RED CELL DISTRIBUTION WIDTH 27.4 % (11.5-14.5); WHITE BLOOD COUNT 7.4 K/uL (4.8-10.8)
[2017-11-01] MEDS: Fluticasone-Salmeterol 250-50mcg Diskus INH SCH ×2 (08:59→21:50)
[2017-11-01] MEDS: Enoxaparin 40 mg Syringe SC SCH (09:00)
[2017-11-01] MEDS: Pantoprazole 40 mg EC Tab PO SCH (09:04)
[2017-11-01] MEDS: Olopatadine 0.1% Opht SOLN OU SCH (09:07)
--- NOTE | 2017-11-01 09:56 | CP.PCM.HP ---
History of Present Illness - History of Present Illness History of Present Illness: CC: GIB 86 year old female PMH CAD, HTN, AFib, hypothyroid, diabetes mellitus with one month history of increased dyspnea, normal echo in November,presented to ER for evaluation found to be anemic on admission with H/H 5.8/19.2. 2 UNITS PRBC were transfused 10/22/17 with a third unit transfused 10/23/17. CT abdomen showed diverticulosis and mild acute diverticulitis. Patient started on IVF , Cipro and Flagyl. Occult blood reported as negative. GI and ID were consulted. Patient clinically improving , tolerating PO intake. Advised to continue Cipro and flagyl for total 10 days. Colonoscopy as outpatient in 6 weeks. Received Venofer IV and started on Ferrous sulfate PO. Patient has sleep apnea and has not been using CPAP while in hospital. Pulmonary consulted and placed on Bipap 10/27. PCO2 44 on 10/28. Repeat ABG ASA and plavix resumed since patient is not actively bleeding and occult blood is negative. H & H stable after transfusion Tolerating PO intake and had regular BM. Continue Cipro and Flagyl for total 10 days. Na 128 ,low but stable. Urine lytes sent and nephro consulted Patient for TCU FOR FURTHER REHAB. ROS: per HPI, 12 systems reviewed and negative by me PMD: DR. SHIN PMH: SLEEP APNEA ON CPAP AT HOME. CHF CAD HTN hypothyroid diabetes mellitus PSH: denies FH: DM HTN SH: denies tobacco, ETOH, IVDU Meds: as below Allergies: NKDA FULL CODE Vitals Reviewed GEN: WDWN, ALERT, COOPERATIVE HEENT: NCAT, PERRL, EOMI HEART: RRR, +S1S2, NO MRG LUNG: CTAB, NO WRR ABD: SOFT, NT, ND, NO HSM, NO MASSES EXT: NORMAL PEDAL PULSES, GOOD CAPILLARY REFILL NEURO: AAOX3, STRENGTH EQUAL BILATERAL UPPER AND LOWER EXTREMITIES SKIN: WARM, DRY PSYCH: NORMAL MOOD, NORMAL AFFECT Most Recent Lab Values WBC 7.4 K/uL (4.8-10.8) 11/01/17 06:30 RBC 3.54 Mil/uL (3.80-5.20) L 11/01/17 06:30 Hgb 8.5 g/dL (12.0-16.0) L 11/01/17 06:30 Hct 28.1 % (34.0-47.0) L 11/01/17 06:30 MCV 79.5 fl (81.0-99.0) L 11/01/17 06:30 MCH 23.9 pg (27.0-31.0) L 11/01/17 06:30 MCHC 30.1 g/dL (33.0-37.0) L 11/01/17 06:30 RDW 27.4 % (11.5-14.5) H 11/01/17 06:30 Plt Count 208 K/uL (130-400) 11/01/17 06:30 MPV 8.4 fl (7.2-11.7) 11/01/17 06:30 Neut % (Auto) 61.5 % (50.0-75.0) 11/01/17 06:30 Lymph % (Auto) 24.6 % (20.0-40.0) 11/01/17 06:30 [place] % (Auto) 9.9 % (0.0-10.0) 11/01/17 06:30 Eos % (Auto) 3.0 % (0.0-4.0) 11/01/17 06:30 Baso % (Auto) 1.0 % (0.0-2.0) 11/01/17 06:30 Neut # 4.5 K/uL (1.8-7.0) 11/01/17 06:30 Lymph # 1.8 K/uL (1.0-4.3) 11/01/17 06:30 [place] # 0.7 K/uL (0.0-0.8) 11/01/17 06:30 Eos # 0.2 K/uL (0.0-0.7) 11/01/17 06:30 Baso # 0.1 K/uL (0.0-0.2) 11/01/17 06:30 Sodium 133 mmol/l (132-148) 11/01/17 06:30 Potassium 3.6 MMOL/L (3.6-5.0) 11/01/17 06:30 Chloride 97 mmol/L (98-107) L 11/01/17 06:30 Carbon Dioxide 29 mmol/L (22-30) 11/01/17 06:30 Anion Gap 11 (10-20) 11/01/17 06:30 BUN 3 mg/dl (7-17) L 11/01/17 06:30 Creatinine 0.5 mg/dl (0.7-1.2) L 11/01/17 06:30 Est GFR ( Amer) > 60 11/01/17 06:30 Est GFR (Non-Af Amer) > 60 11/01/17 06:30 Random Glucose 88 mg/dL (65-105) 11/01/17 06:30 Calcium 8.2 mg/dL (8.4-10.2) L 11/01/17 06:30 86 year old female PMH CAD, HTN, AFib, hypothyroid, diabetes mellitus with one month history of increased dyspnea, normal echo in November,presented to ER for evaluation found to be anemic on admission with H/H 5.8/19.2. 2 UNITS PRBC were transfused 10/22/17 with a third unit transfused 10/23/17. CT abdomen showed diverticulosis and mild acute diverticulitis. Patient started on IVF , Cipro and Flagyl. Occult blood reported as negative. GI and ID were consulted. Patient clinically improving , tolerating PO intake. Advised to continue Cipro and flagyl for total 10 days. Colonoscopy as outpatient in 6 weeks. Received Venofer IV and started on Ferrous sulfate PO. Patient has sleep apnea and has not been using CPAP while in hospital. Pulmonary consulted and placed on Bipap 10/27. PCO2 44 on 10/28. Repeat ABG ASA and plavix resumed since patient is not actively bleeding and occult blood is negative. H & H stable after transfusion Tolerating PO intake and had regular BM. Continue Cipro and Flagyl for total 10 days. Na 128 ,low but stable. Urine lytes sent and nephro consulted Patient for TCU today FOR FURTHER REHAB. Chest CT: Large b/l pleural effusions. Accompanying compressive atelectasis at the lung bases. Findings likely related to CHF. No evidence of PE Patient had thoracentesis on 10/30 with 600 cc of straw colored fluid removed. States that her breathing is much improved after the procedure. Chest xray post thoracentesis 10/30/17: L basilar atelectasis or infiltrate identified in the interval. No definite pneumothorax or pleural effsion b/l Pt to resume regular diet Patient to be transferred to TCU 10/31/17 1. Anemia - Most likely due to bleed from diverticulosis/ diverticulitis. No active bleed at present, occult blood is negative - s/p 3 units of PRBC total transfused since admission - H/H, 8.02/03.2 - Continue Feosol, ASA, plavix - Colonoscopy as outpatient 2. Diverticulitis - Abdomen/pelvis CT: Severe diverticulosis affecting descending colon and sigmoid. Mild acute sigmoid diverticulitis - Received Cipro 400mg IV q12 and Flagyl 500 IV q8 - advanced diet to consistent carb diet - GI consult appreciated - occult blood negative for bleed - Stool culture: No salmonella, shigella, or campylobacter isolated - Will continue Cipro and flagyl for 10 days TO BE COMPLETED NOV 11, 2017. Outpatient colonoscopy after 6 weeks 3. Acute hypercarbic respiratory failure - Thorocentesis performed today. 600 cc fluid removed - Pulmonology consulted - O2 sat 96% w/ high flow nasal canula - Continue albuterol - DC CPAP at night for sleep, start high flow nasal canula - F/u CXR - Vital signs q4h 4. Paroxysmal Atrial Fibrillation - SR - Continue amiodarone, ASA 5. Diabtets Mellitus - Controlled - POC glucose 93 - Random glucose 69 - Continue humalog, metformin, Januvia - Accucheck - Diabetic diet - IRSS 6. HTN - BP 138/63 - Continue Norvasc, Lipitor, Imdur, Cozaar - Controlled - Monitor 7. Hypothyroidism - TSH 8.87 - Continue Synthroid 9. DJD, shoulder - Continue tylenol, prn pain 10. DVT prophylaxis - SCDs - Continue ASA, plavix 11. Depression - Held Citalopram [CeleXA] 10 mg PO DAILY - HOLD - DC Pregabalin [Lyrica] 50 mg PO HS 12. Hyponetremia - Na 128 - restrict PO fluid intake - ? medication side effect - Monitor Present on Admission - Present on Admission Any Indicators Present on Admission: No Past Patient History - Infectious Disease Hx of Infectious Diseases: None - Past Medical History & Family History Past Medical History?: Yes - Past Social History Smoking Status: Never Smoked - CARDIAC Hx Cardiac Disorders: Yes Hx Hypercholesterolemia: Yes Hx Hypertension: Yes - PULMONARY Hx Chronic Obstructive Pulmonary Disease (COPD): Yes - NEUROLOGICAL Hx Neurological Disorder: No - HEENT Hx HEENT Problems: No - RENAL Hx Chronic Kidney Disease: No - ENDOCRINE/METABOLIC Hx Diabetes Mellitus Type 2: Yes - HEMATOLOGICAL/ONCOLOGICAL Hx AIDS: No Hx Human Immunodeficiency Virus (HIV): No - INTEGUMENTARY Hx Dermatological Problems: No - MUSCULOSKELETAL/RHEUMATOLOGICAL Hx Arthritis: Yes - GASTROINTESTINAL Hx Diverticulitis: Yes - GENITOURINARY/GYNECOLOGICAL Hx Genitourinary Disorders: No - PSYCHIATRIC Hx Psychophysiologic Disorder: No Hx Substance Use: No - SURGICAL HISTORY Hx Cholecystectomy: Yes Hx Coronary Artery Bypass Graft: No - ANESTHESIA Hx Anesthesia: Yes Hx Anesthesia Reactions: No Hx Malignant Hyperthermia: No Meds Allergies/Adverse Reactions: Allergies Allergy/AdvReac Type Severity Reaction Status Date / Time No Known Allergies Allergy Verified 10/31/17 13:42 Results - Vital Signs Recent Vital Signs: Last Vital Signs Temp 98.1 F 10/31/17 20:00 Pulse 72 11/01/17 09:06 Resp 21 11/01/17 07:26 BP 130/70 11/01/17 09:06 Pulse Ox 99 10/31/17 20:00 - Labs Result Diagrams: 11/01/17 06:30 11/01/17 06:30 Labs: Laboratory Results - last 24 hr 11/01/17 11/01/17 06:30 06:30 WBC 7.4 RBC 3.54 L Hgb 8.5 L Hct 28.1 L MCV 79.5 L MCH 23.9 L MCHC 30.1 L RDW 27.4 H Plt Count 208 MPV 8.4 Neut % (Auto) 61.5 Lymph % (Auto) 24.6 [place] % (Auto) 9.9 Eos % (Auto) 3.0 Baso % (Auto) 1.0 Neut # 4.5 Lymph # 1.8 [place] # 0.7 Eos # 0.2 Baso # 0.1 Sodium 133 Potassium 3.6 Chloride 97 L Carbon Dioxide 29 Anion Gap 11 BUN 3 L Creatinine 0.5 L Est GFR ( Amer) > 60 Est GFR (Non-Af Amer) > 60 Random Glucose 88 Calcium 8.2 L
--- NOTE | 2017-11-01 11:59 | CP.PCM.PN ---
Subjective - Date & Time of Evaluation Date of Evaluation: 11/01/17 Time of Evaluation: 11:54 - Subjective Subjective: Discharged from acute medicine to Transitional Care yesterday. Has done very well post thoracentesis. Using HFNC in lieu of nCPAP and has been awake and alert during the daytime. Sleeping well at night on HFNC. SpO2 checked this morning on ROOM AIR 94-95%. Breath sounds are well heard bilaterally with scattered dry rales. No audible wheezes or bronchial breath sounds. Will discontinue daytime nasal oxygen. Use HFNC with 24% O2 at night and during the daytime if she developes somnolence. She understands the importance of using her nCPAP at home, which she admits to not doing prior to admission. Her respiratory status has stabilized on the current regimen. Monitor SpO2 during physical therapy and plan for discharge to home soon. Objective - Vital Signs/Intake and Output Vital Signs (last 24 hours): Temp Pulse Resp BP Pulse Ox 98.2 F 72 20 130/70 100 11/01/17 10:01 11/01/17 10:01 11/01/17 10:01 11/01/17 10:01 11/01/17 10:01 - Medications Medications: Current Medications Acetaminophen (Tylenol 325mg Tab) 650 mg PO Q6 PRN PRN Reason: Pain, Mild (1-3) Acetaminophen (Tylenol 325mg Tab) 650 mg PO Q6 PRN PRN Reason: Fever >100.4 F Acetaminophen (Tylenol 325mg Tab) 650 mg PO Q6 PRN PRN Reason: Other Al Hydrox/Mg Hydrox/Simethicone (Maalox Plus 30 Ml) 30 ml PO Q6 PRN PRN Reason: Indigestion / Heartburn Amiodarone HCl (Cordarone) 100 mg PO DAILY [facility] Last Admin: 11/01/17 09:01 Dose: 100 mg Amlodipine Besylate (Norvasc) 5 mg PO DAILY [facility] Last Admin: 11/01/17 09:05 Dose: 5 mg Aspirin (Ecotrin) 81 mg PO DAILY [facility] Last Admin: 11/01/17 09:01 Dose: 81 mg Atorvastatin Calcium (Lipitor) 40 mg PO DAILY [facility] Last Admin: 11/01/17 09:06 Dose: 40 mg Ciprofloxacin (Cipro) 250 mg PO Q12 [facility] PRN Reason: Protocol Stop: 11/08/17 21:01 Last Admin: 11/01/17 09:00 Dose: 250 mg Clopidogrel Bisulfate (Plavix) 75 mg PO DAILY [facility] Last Admin: 11/01/17 09:00 Dose: 75 mg Docusate Sodium (Colace) 100 mg PO BID [facility] Last Admin: 11/01/17 08:59 Dose: 100 mg Enoxaparin Sodium (Lovenox) 40 mg SC DAILY [facility] PRN Reason: Protocol Last Admin: 11/01/17 09:00 Dose: 40 mg Ferrous Sulfate (Feosol) 325 mg PO BID [facility] Last Admin: 11/01/17 09:04 Dose: 325 mg Insulin Human Lispro (Humalog) 0 units SC ACHS [facility] PRN Reason: Protocol Last Admin: 11/01/17 07:44 Dose: Not Given Isosorbide Mononitrate (Imdur Er) 30 mg PO DAILY [facility] Last Admin: 11/01/17 09:01 Dose: 30 mg Levothyroxine Sodium (Synthroid) 200 mcg PO DAILY@0630 [facility] Last Admin: 11/01/17 06:31 Dose: 200 mcg Losartan Potassium (Cozaar) 50 mg PO DAILY [facility] Last Admin: 11/01/17 09:06 Dose: 50 mg Metformin HCl (Glucophage) 500 mg PO BID [facility] Last Admin: 11/01/17 09:06 Dose: 500 mg Metronidazole (Flagyl) 500 mg PO TID [facility] PRN Reason: Protocol Stop: 11/08/17 17:01 Last Admin: 11/01/17 09:00 Dose: 500 mg Olopatadine HCl (Patanol 0.1% Opht Soln) 1 drop OU DAILY [facility] Last Admin: 11/01/17 09:07 Dose: 1 units Ondansetron HCl (Zofran Inj) 4 mg IVP Q6 PRN PRN Reason: Nausea/Vomiting Pantoprazole Sodium (Protonix Ec Tab) 40 mg PO DAILY [facility] Last Admin: 11/01/17 09:04 Dose: 40 mg Fluticasone/Salmeterol (Advair Diskus 250/50) 1 puff INH Q12 [facility] Last Admin: 11/01/17 08:59 Dose: 1 puff Sitagliptin Phosphate (Januvia) 100 mg PO DAILY [facility] Last Admin: 11/01/17 09:01 Dose: 100 mg - Labs Labs: 11/01/17 06:30 11/01/17 06:30
--- NOTE | 2017-11-01 23:31 | CP.PCM.PN ---
Subjective - Date & Time of Evaluation Date of Evaluation: 11/01/17 Time of Evaluation: 08:00 - Subjective Subjective: renal follow up note no events overnight, transferred to tcu PE: lying in bed heent normal op moist no jvd [id number] no resp distress abd soft skin normal AO times 3 A&P hyponatremia/diverticulitis/dm sodium improved, with tolvaptan continue to monitor free water restriction abx per primary team Objective - Vital Signs/Intake and Output Vital Signs (last 24 hours): Temp Pulse Resp BP Pulse Ox 97.9 F 77 22 134/68 95 11/01/17 19:35 11/01/17 19:35 11/01/17 22:48 11/01/17 19:35 11/01/17 19:35 - Medications Medications: Current Medications Acetaminophen (Tylenol 325mg Tab) 650 mg PO Q6 PRN PRN Reason: Pain, Mild (1-3) Acetaminophen (Tylenol 325mg Tab) 650 mg PO Q6 PRN PRN Reason: Fever >100.4 F Acetaminophen (Tylenol 325mg Tab) 650 mg PO Q6 PRN PRN Reason: Other Al Hydrox/Mg Hydrox/Simethicone (Maalox Plus 30 Ml) 30 ml PO Q6 PRN PRN Reason: Indigestion / Heartburn Amiodarone HCl (Cordarone) 100 mg PO DAILY [facility] Last Admin: 11/01/17 09:01 Dose: 100 mg Amlodipine Besylate (Norvasc) 5 mg PO DAILY [facility] Last Admin: 11/01/17 09:05 Dose: 5 mg Aspirin (Ecotrin) 81 mg PO DAILY [facility] Last Admin: 11/01/17 09:01 Dose: 81 mg Atorvastatin Calcium (Lipitor) 40 mg PO DAILY [facility] Last Admin: 11/01/17 09:06 Dose: 40 mg Ciprofloxacin (Cipro) 250 mg PO Q12 [facility] PRN Reason: Protocol Stop: 11/08/17 21:01 Last Admin: 11/01/17 21:52 Dose: 250 mg Clopidogrel Bisulfate (Plavix) 75 mg PO DAILY [facility] Last Admin: 11/01/17 09:00 Dose: 75 mg Docusate Sodium (Colace) 100 mg PO BID [facility] Last Admin: 11/01/17 16:50 Dose: 100 mg Enoxaparin Sodium (Lovenox) 40 mg SC DAILY [facility] PRN Reason: Protocol Last Admin: 11/01/17 09:00 Dose: 40 mg Ferrous Sulfate (Feosol) 325 mg PO BID [facility] Last Admin: 11/01/17 16:50 Dose: 325 mg Insulin Human Lispro (Humalog) 0 units SC ACHS [facility] PRN Reason: Protocol Last Admin: 11/01/17 16:51 Dose: Not Given Isosorbide Mononitrate (Imdur Er) 30 mg PO DAILY [facility] Last Admin: 11/01/17 09:01 Dose: 30 mg Levothyroxine Sodium (Synthroid) 200 mcg PO DAILY@0630 [facility] Last Admin: 11/01/17 06:31 Dose: 200 mcg Losartan Potassium (Cozaar) 50 mg PO DAILY [facility] Last Admin: 11/01/17 09:06 Dose: 50 mg Metformin HCl (Glucophage) 500 mg PO BID [facility] Last Admin: 11/01/17 16:51 Dose: 500 mg Metronidazole (Flagyl) 500 mg PO TID [facility] PRN Reason: Protocol Stop: 11/08/17 17:01 Last Admin: 11/01/17 16:50 Dose: 500 mg Olopatadine HCl (Patanol 0.1% Opht Soln) 1 drop OU DAILY [facility] Last Admin: 11/01/17 09:07 Dose: 1 units Ondansetron HCl (Zofran Inj) 4 mg IVP Q6 PRN PRN Reason: Nausea/Vomiting Pantoprazole Sodium (Protonix Ec Tab) 40 mg PO DAILY [facility] Last Admin: 11/01/17 09:04 Dose: 40 mg Fluticasone/Salmeterol (Advair Diskus 250/50) 1 puff INH Q12 [facility] Last Admin: 11/01/17 21:50 Dose: 1 puff Sitagliptin Phosphate (Januvia) 100 mg PO DAILY [facility] Last Admin: 11/01/17 09:01 Dose: 100 mg - Labs Labs: 11/01/17 06:30 11/01/17 06:30
[2017-11-02] MEDS: Insulin Lispro (humaLOG) 100 Units/ml Inj SC SCH ×5 (01:36→21:49)
[2017-11-02] MEDS: Levothyroxine 200 MCG TAB PO SCH (06:34)
[2017-11-02] MEDS: Fluticasone-Salmeterol 250-50mcg Diskus INH SCH ×2 (08:56→21:47)
[2017-11-02] MEDS: Enoxaparin 40 mg Syringe SC SCH (09:01)
[2017-11-02] MEDS: Olopatadine 0.1% Opht SOLN OU SCH (09:01)
[2017-11-02] MEDS: Pantoprazole 40 mg EC Tab PO SCH (09:02)
[2017-11-03] MEDS: Levothyroxine 200 MCG TAB PO SCH (06:42)
[2017-11-03] MEDS: Insulin Lispro (humaLOG) 100 Units/ml Inj SC SCH ×4 (06:43→22:00)
[2017-11-03] MEDS: Enoxaparin 40 mg Syringe SC SCH (09:17)
[2017-11-03] MEDS: Fluticasone-Salmeterol 250-50mcg Diskus INH SCH ×2 (09:20→21:32)
[2017-11-03] MEDS: Pantoprazole 40 mg EC Tab PO SCH (09:21)
[2017-11-03] MEDS: Olopatadine 0.1% Opht SOLN OU SCH (09:22)
[2017-11-04] MEDS: Insulin Lispro (humaLOG) 100 Units/ml Inj SC SCH ×4 (06:56→21:54)
[2017-11-04] MEDS: Levothyroxine 200 MCG TAB PO SCH (06:56)
[2017-11-04] MEDS: Fluticasone-Salmeterol 250-50mcg Diskus INH SCH ×2 (09:01→21:50)
[2017-11-04] MEDS: Pantoprazole 40 mg EC Tab PO SCH (09:01)
[2017-11-04] MEDS: Enoxaparin 40 mg Syringe SC SCH (09:01)
[2017-11-04] MEDS: Olopatadine 0.1% Opht SOLN OU SCH (09:06)
--- NOTE | 2017-11-04 10:04 | CP.PCM.PN ---
Subjective - Date & Time of Evaluation Date of Evaluation: 11/04/17 Time of Evaluation: 09:55 - Subjective Subjective: Seated in bedside chair. Asleep, but easily awakens. Alert and oriented when awakened. Has no specific complaints at this time. Trace dependant edema of both ankles. No cyanosis. Pharynx is pink and moist. Neck is supple and trachea midline. Breath sounds are well heard bilaterally, slightly diminished in LL's. No audible wheezing or bronchial breathing. Rare dry basal rales. Heart sounds are slightly distant, regular rhythm. Appears stable from a pulmonary perspective. Using HFNC overnight. Off oxygen while seated/at rest. Uses nasal canula with O2 for physical therapy. Objective - Vital Signs/Intake and Output Vital Signs (last 24 hours): Temp Pulse Resp BP Pulse Ox 97.9 F 76 20 147/73 90 L 11/04/17 08:13 11/04/17 09:03 11/04/17 08:13 11/04/17 09:04 11/04/17 08:13 - Medications Medications: Current Medications Acetaminophen (Tylenol 325mg Tab) 650 mg PO Q6 PRN PRN Reason: Pain, Mild (1-3) Last Admin: 11/04/17 04:18 Dose: 650 mg Acetaminophen (Tylenol 325mg Tab) 650 mg PO Q6 PRN PRN Reason: Fever >100.4 F Acetaminophen (Tylenol 325mg Tab) 650 mg PO Q6 PRN PRN Reason: Other Al Hydrox/Mg Hydrox/Simethicone (Maalox Plus 30 Ml) 30 ml PO Q6 PRN PRN Reason: Indigestion / Heartburn Amiodarone HCl (Cordarone) 100 mg PO DAILY [facility] Last Admin: 11/04/17 09:02 Dose: 100 mg Amlodipine Besylate (Norvasc) 5 mg PO DAILY [facility] Last Admin: 11/04/17 09:03 Dose: 5 mg Aspirin (Ecotrin) 81 mg PO DAILY [facility] Last Admin: 11/04/17 09:05 Dose: 81 mg Atorvastatin Calcium (Lipitor) 40 mg PO DAILY@2100 [facility] Last Admin: 11/03/17 21:35 Dose: 40 mg Ciprofloxacin (Cipro) 250 mg PO Q12 [facility] PRN Reason: Protocol Stop: 11/08/17 21:01 Last Admin: 11/04/17 09:05 Dose: 250 mg Clopidogrel Bisulfate (Plavix) 75 mg PO DAILY [facility] Last Admin: 11/04/17 09:01 Dose: 75 mg Docusate Sodium (Colace) 100 mg PO BID [facility] Last Admin: 11/04/17 09:03 Dose: 100 mg Enoxaparin Sodium (Lovenox) 40 mg SC DAILY [facility] PRN Reason: Protocol Last Admin: 11/04/17 09:01 Dose: 40 mg Ferrous Sulfate (Feosol) 325 mg PO BID [facility] Last Admin: 11/04/17 09:05 Dose: 325 mg Insulin Human Lispro (Humalog) [address] [facility] PRN Reason: Protocol Last Admin: 11/04/17 06:56 Dose: Not Given Isosorbide Mononitrate (Imdur Er) 30 mg PO DAILY [facility] Last Admin: 11/04/17 09:04 Dose: 30 mg Levothyroxine Sodium (Synthroid) 200 mcg PO DAILY@0630 [facility] Last Admin: 11/04/17 06:56 Dose: 200 mcg Losartan Potassium (Cozaar) 50 mg PO DAILY [facility] Last Admin: 11/04/17 09:04 Dose: 50 mg Metformin HCl (Glucophage) 500 mg PO BID [facility] Last Admin: 11/04/17 09:01 Dose: 500 mg Metronidazole (Flagyl) 500 mg PO TID [facility] PRN Reason: Protocol Stop: 11/08/17 17:01 Last Admin: 11/04/17 09:03 Dose: 500 mg Olopatadine HCl (Patanol 0.1% Opht Soln) 1 drop OU DAILY [facility] Last Admin: 11/04/17 09:06 Dose: 1 units Ondansetron HCl (Zofran Inj) 4 mg IVP Q6 PRN PRN Reason: Nausea/Vomiting Pantoprazole Sodium (Protonix Ec Tab) 40 mg PO DAILY [facility] Last Admin: 11/04/17 09:01 Dose: 40 mg Fluticasone/Salmeterol (Advair Diskus 250/50) 1 puff INH Q12 [facility] Last Admin: 11/04/17 09:01 Dose: 1 puff Sitagliptin Phosphate (Januvia) 100 mg PO DAILY [facility] Last Admin: 11/04/17 09:06 Dose: 100 mg - Labs Labs: 11/01/17 06:30 11/01/17 06:30
--- NOTE | 2017-11-04 13:25 | CP.PCM.PN ---
Subjective - Date & Time of Evaluation Date of Evaluation: 11/04/17 Time of Evaluation: 13:23 - Subjective Subjective: Patient appeared to be comfortable No chest pain and reported no nausea no vomiting Objective - Vital Signs/Intake and Output Vital Signs (last 24 hours): Temp Pulse Resp BP Pulse Ox 97.9 F 76 20 147/73 90 L 11/04/17 08:13 11/04/17 09:03 11/04/17 08:13 11/04/17 09:04 11/04/17 08:13 - Medications Medications: Current Medications Acetaminophen (Tylenol 325mg Tab) 650 mg PO Q6 PRN PRN Reason: Pain, Mild (1-3) Last Admin: 11/04/17 04:18 Dose: 650 mg Acetaminophen (Tylenol 325mg Tab) 650 mg PO Q6 PRN PRN Reason: Fever >100.4 F Acetaminophen (Tylenol 325mg Tab) 650 mg PO Q6 PRN PRN Reason: Other Al Hydrox/Mg Hydrox/Simethicone (Maalox Plus 30 Ml) 30 ml PO Q6 PRN PRN Reason: Indigestion / Heartburn Amiodarone HCl (Cordarone) 100 mg PO DAILY [facility] Last Admin: 11/04/17 09:02 Dose: 100 mg Amlodipine Besylate (Norvasc) 5 mg PO DAILY [facility] Last Admin: 11/04/17 09:03 Dose: 5 mg Aspirin (Ecotrin) 81 mg PO DAILY [facility] Last Admin: 11/04/17 09:05 Dose: 81 mg Atorvastatin Calcium (Lipitor) 40 mg PO DAILY@2100 [facility] Last Admin: 11/03/17 21:35 Dose: 40 mg Ciprofloxacin (Cipro) 250 mg PO Q12 [facility] PRN Reason: Protocol Stop: 11/08/17 21:01 Last Admin: 11/04/17 09:05 Dose: 250 mg Clopidogrel Bisulfate (Plavix) 75 mg PO DAILY [facility] Last Admin: 11/04/17 09:01 Dose: 75 mg Docusate Sodium (Colace) 100 mg PO BID [facility] Last Admin: 11/04/17 09:03 Dose: 100 mg Enoxaparin Sodium (Lovenox) 40 mg SC DAILY [facility] PRN Reason: Protocol Last Admin: 11/04/17 09:01 Dose: 40 mg Ferrous Sulfate (Feosol) 325 mg PO BID [facility] Last Admin: 11/04/17 09:05 Dose: 325 mg Insulin Human Lispro (Humalog) 0 units SC ACHS [facility] PRN Reason: Protocol Last Admin: 11/04/17 12:20 Dose: Not Given Isosorbide Mononitrate (Imdur Er) 30 mg PO DAILY [facility] Last Admin: 11/04/17 09:04 Dose: 30 mg Levothyroxine Sodium (Synthroid) 200 mcg PO DAILY@0630 [facility] Last Admin: 11/04/17 06:56 Dose: 200 mcg Losartan Potassium (Cozaar) 50 mg PO DAILY [facility] Last Admin: 11/04/17 09:04 Dose: 50 mg Metformin HCl (Glucophage) 500 mg PO BID [facility] Last Admin: 11/04/17 09:01 Dose: 500 mg Metronidazole (Flagyl) 500 mg PO TID [facility] PRN Reason: Protocol Stop: 11/08/17 17:01 Last Admin: 11/04/17 12:19 Dose: 500 mg Olopatadine HCl (Patanol 0.1% Opht Soln) 1 drop OU DAILY [facility] Last Admin: 11/04/17 09:06 Dose: 1 units Ondansetron HCl (Zofran Inj) 4 mg IVP Q6 PRN PRN Reason: Nausea/Vomiting Pantoprazole Sodium (Protonix Ec Tab) 40 mg PO DAILY [facility] Last Admin: 11/04/17 09:01 Dose: 40 mg Fluticasone/Salmeterol (Advair Diskus 250/50) 1 puff INH Q12 [facility] Last Admin: 11/04/17 09:01 Dose: 1 puff Sitagliptin Phosphate (Januvia) 100 mg PO DAILY [facility] Last Admin: 11/04/17 09:06 Dose: 100 mg - Labs Labs: 11/01/17 06:30 11/01/17 06:30 - Constitutional Appears: No Acute Distress - ENT Exam ENT Exam: Mucous Membranes Moist - Neck Exam Neck Exam: absent: Lymphadenopathy - Respiratory Exam Respiratory Exam: absent: Chest Wall Tenderness - Cardiovascular Exam Cardiovascular Exam: absent: JVD, Rubs - GI/Abdominal Exam GI & Abdominal Exam: Soft - Extremities Exam Extremities Exam: absent: Calf Tenderness - Back Exam Back Exam: absent: CVA tenderness (L), CVA tenderness (R) - Neurological Exam Neurological Exam: Alert - Psychiatric Exam Psychiatric exam: Normal Affect - Skin Skin Exam: absent: Cyanosis Assessment and Plan (1) Hyponatremia Assessment & Plan: Hyponatremia The last serum sodium was 2 days ago therefore I ordered to be done tomorrow morning. The last serum sodium 133 Continue monitoring Status: Acute
--- NOTE | 2017-11-04 13:52 | CP.PCM.PN ---
Subjective - Date & Time of Evaluation Date of Evaluation: 11/04/17 Time of Evaluation: 10:00 - Subjective Subjective: Patient seen and examined at bedside. She is in the dining room with family and says she is feeling well. She is alert and oriented and has no complaints. Objective - Vital Signs/Intake and Output Vital Signs (last 24 hours): Temp Pulse Resp BP Pulse Ox 97.9 F 76 20 147/73 90 L 11/04/17 08:13 11/04/17 09:03 11/04/17 08:13 11/04/17 09:04 11/04/17 08:13 - Medications Medications: Current Medications Acetaminophen (Tylenol 325mg Tab) 650 mg PO Q6 PRN PRN Reason: Pain, Mild (1-3) Last Admin: 11/04/17 04:18 Dose: 650 mg Acetaminophen (Tylenol 325mg Tab) 650 mg PO Q6 PRN PRN Reason: Fever >100.4 F Acetaminophen (Tylenol 325mg Tab) 650 mg PO Q6 PRN PRN Reason: Other Al Hydrox/Mg Hydrox/Simethicone (Maalox Plus 30 Ml) 30 ml PO Q6 PRN PRN Reason: Indigestion / Heartburn Amiodarone HCl (Cordarone) 100 mg PO DAILY [facility] Last Admin: 11/04/17 09:02 Dose: 100 mg Amlodipine Besylate (Norvasc) 5 mg PO DAILY [facility] Last Admin: 11/04/17 09:03 Dose: 5 mg Aspirin (Ecotrin) 81 mg PO DAILY [facility] Last Admin: 11/04/17 09:05 Dose: 81 mg Atorvastatin Calcium (Lipitor) 40 mg PO DAILY@2100 [facility] Last Admin: 11/03/17 21:35 Dose: 40 mg Ciprofloxacin (Cipro) 250 mg PO Q12 [facility] PRN Reason: Protocol Stop: 11/08/17 21:01 Last Admin: 11/04/17 09:05 Dose: 250 mg Clopidogrel Bisulfate (Plavix) 75 mg PO DAILY [facility] Last Admin: 11/04/17 09:01 Dose: 75 mg Docusate Sodium (Colace) 100 mg PO BID [facility] Last Admin: 11/04/17 09:03 Dose: 100 mg Enoxaparin Sodium (Lovenox) 40 mg SC DAILY [facility] PRN Reason: Protocol Last Admin: 11/04/17 09:01 Dose: 40 mg Ferrous Sulfate (Feosol) 325 mg PO BID [facility] Last Admin: 11/04/17 09:05 Dose: 325 mg Insulin Human Lispro (Humalog) 0 units SC ACHS [facility] PRN Reason: Protocol Last Admin: 11/04/17 12:20 Dose: Not Given Isosorbide Mononitrate (Imdur Er) 30 mg PO DAILY [facility] Last Admin: 11/04/17 09:04 Dose: 30 mg Levothyroxine Sodium (Synthroid) 200 mcg PO DAILY@0630 [facility] Last Admin: 11/04/17 06:56 Dose: 200 mcg Losartan Potassium (Cozaar) 50 mg PO DAILY [facility] Last Admin: 11/04/17 09:04 Dose: 50 mg Metformin HCl (Glucophage) 500 mg PO BID [facility] Last Admin: 11/04/17 09:01 Dose: 500 mg Metronidazole (Flagyl) 500 mg PO TID [facility] PRN Reason: Protocol Stop: 11/08/17 17:01 Last Admin: 11/04/17 12:19 Dose: 500 mg Olopatadine HCl (Patanol 0.1% Opht Soln) 1 drop OU DAILY [facility] Last Admin: 11/04/17 09:06 Dose: 1 units Ondansetron HCl (Zofran Inj) 4 mg IVP Q6 PRN PRN Reason: Nausea/Vomiting Pantoprazole Sodium (Protonix Ec Tab) 40 mg PO DAILY [facility] Last Admin: 11/04/17 09:01 Dose: 40 mg Fluticasone/Salmeterol (Advair Diskus 250/50) 1 puff INH Q12 [facility] Last Admin: 11/04/17 09:01 Dose: 1 puff Sitagliptin Phosphate (Januvia) 100 mg PO DAILY [facility] Last Admin: 11/04/17 09:06 Dose: 100 mg - Labs Labs: 11/01/17 06:30 11/01/17 06:30 - Additional Findings Additional findings: Physical exam: Constitutional- cooperative, awake, alert Head- NCAT, PERRL Eye- PERRL, EOMI ENT- normal exam, MMM. Neck- normal inspection, supple, no JVD Respiratory- CTAB, no wheezes rales rhonchi Cardiovascular- RRR, +S1, +S2 no MRG GI/Abdominal- normal bowel sounds, soft, no mass, no hsm Skin- warm, dry Extremities Exam- Trace edema bilateral lower extremities. normal capillary refill, normal inspection Neurological Exam- alert, awake, oriented Psych- normal mood, normal affect Assessment and Plan - Assessment and Plan (Free Text) Plan: This is an 86 year old female PMH CAD, HTN, AFib, hypothyroid, diabetes mellitus with one month history of increased dyspnea, normal echo in November, presented to ER for evaluation found to be anemic on admission with H/H 5.8/ 19.2. 2 UNITS PRBC were transfused 10/22/17 with a third unit transfused . CT abdomen showed diverticulosis and mild acute diverticulitis. Patient started on IVF , Cipro and Flagyl. Occult blood reported as negative. GI and ID were consulted. Patient clinically improving , tolerating PO intake. Advised to continue Cipro and flagyl for total 10 days. Colonoscopy as outpatient in 6 weeks. Received Venofer IV and started on Ferrous sulfate PO. Patient has sleep apnea and has not been using CPAP while in hospital. Pulmonary consulted and placed on Bipap 10/27. PCO2 44 on 10/28. Repeat ABG ASA and plavix resumed since patient is not actively bleeding and occult blood is negative. H & H stable after transfusion Tolerating PO intake and had regular BM. Continue Cipro and Flagyl for total 10 days. Na 128 ,low but stable. Urine lytes sent and nephro consulted Patient was sent to TCU for further rehabilitation, PT, and OT. 1. Anemia - Most likely due to bleed from diverticulosis/ diverticulitis. No active bleed at present, occult blood is negative - s/p 3 units of PRBC total transfused since admission - H/H, 8.5 - Continue Feosol, ASA, plavix - Colonoscopy as outpatient 2. Diverticulitis - Abdomen/pelvis CT: Severe diverticulosis affecting descending colon and sigmoid. Mild acute sigmoid diverticulitis - Received Cipro 400mg IV q12 and Flagyl 500 IV q8 - advanced diet to consistent carb diet - GI consult appreciated - occult blood negative for bleed - Stool culture: No salmonella, shigella, or campylobacter isolated - Will continue Cipro and flagyl TO BE COMPLETED NOV 11, 2017. Outpatient colonoscopy after 6 weeks 3. Acute hypercarbic respiratory failure - Thorocentesis performed today. 600 cc fluid removed - Pulmonology consulted - O2 sat 96% w/ high flow nasal cannula - Continue albuterol - Dr. Sorto 4. Paroxysmal Atrial Fibrillation - SR - Continue amiodarone, ASA 5. Diabetes Mellitus - Controlled - POC glucose 93 - Random glucose 69 - Continue humalog, metformin, Januvia - Accucheck - Diabetic diet - IRSS 6. HTN - BP 147/73 - Continue Norvasc, Lipitor, Imdur, Cozaar - Controlled - Monitor 7. Hypothyroidism - TSH 8.87 - Continue Synthroid 9. DJD, shoulder - Continue tylenol, prn pain 10. DVT prophylaxis - SCDs - Continue ASA, plavix 11. Depression - Held Citalopram [CeleXA] 10 mg PO DAILY - HOLD - DC Pregabalin [Lyrica] 50 mg PO HS
--- NOTE | 2017-11-04 15:16 | RAD ---
HISTORY: asthma COMPARISON: 10/30/2017 TECHNIQUE: Chest PA and lateral FINDINGS: LUNGS: Examination limited due to oblique positioning. Questionable patchy right basilar opacity. No abnormal opacity elsewhere. PLEURA: There is blunting of the left costovertebral sulcus in the lateral projection. This may reflect small pleural effusion. CARDIOVASCULAR: Normal. OSSEOUS STRUCTURES: No significant abnormalities. VISUALIZED UPPER ABDOMEN: Normal. OTHER FINDINGS: None. IMPRESSION: Possible right basilar infiltrate. Small left pleural effusion versus pleural thickening.
[2017-11-05] MEDS: Levothyroxine 200 MCG TAB PO SCH (06:31)
[2017-11-05] MEDS: Insulin Lispro (humaLOG) 100 Units/ml Inj SC SCH ×2 (06:55→12:24)
[2017-11-05 07:10] LABS: BLOOD UREA NITROGEN 3 mg/dl (7-17); CALCIUM 8.4 mg/dL (8.4-10.2); CARBON DIOXIDE 29 mmol/L (22-30); CHLORIDE 96 mmol/L (98-107); GFR AFRICAN-AMERICAN > 60; GLUCOSE,RANDOM 81 mg/dL (65-105); POTASSIUM 3.7 MMOL/L (3.6-5.0); SODIUM 131 mmol/l (132-148)
[2017-11-05] MEDS: Fluticasone-Salmeterol 250-50mcg Diskus INH SCH (08:44)
[2017-11-05] MEDS: Pantoprazole 40 mg EC Tab PO SCH (08:46)
[2017-11-05] MEDS: Enoxaparin 40 mg Syringe SC SCH (08:46)
[2017-11-05] MEDS: Olopatadine 0.1% Opht SOLN OU SCH (08:48)
[2017-11-05 08:50] VITALS: BP 165/78; PULSE 82
[2017-11-05 09:00] VITALS: RESP 20; TEMP 98.2; O2SAT 94
--- NOTE | 2017-11-05 11:08 | CP.PCM.PN ---
Subjective - Date & Time of Evaluation Date of Evaluation: 11/05/17 Time of Evaluation: 11:05 - Subjective Subjective: Seated on the edge of her bed. Comfortable, anxiously awaiting tentative discharge to home. She has been quite hypertensive today, and may require increased medication. Serum sodium is mildly decreased again this morning; renal is following. Followup CXR reviewed; some residual effusion may be present (small). Bronchovascular congestion noted as well. On exam there is only trace dependant edema of the ankles, no cyanosis. Neck is supple and trachea midline. No visible JVD. No dullness on chest percussion. Breath sounds are well heard bilaterally, only slightly diminished. No audible wheezes or bronchial breath sounds. Discharge is pending. Follow up phone contact in 48hrs. Will see as an outpatient om 11/11/17. Agrees to use her nCPAP every night. Her last echocardiogram on 11/14/16 was rather unremarkable. This will be repeated as an outpatient. Objective - Vital Signs/Intake and Output Vital Signs (last 24 hours): Temp Pulse Resp BP Pulse Ox 98.2 F 82 20 165/78 H 94 L 11/05/17 08:59 11/05/17 08:59 11/05/17 08:59 11/05/17 08:59 11/05/17 08:59 - Medications Medications: Current Medications Acetaminophen (Tylenol 325mg Tab) 650 mg PO Q6 PRN PRN Reason: Pain, Mild (1-3) Last Admin: 11/04/17 04:18 Dose: 650 mg Acetaminophen (Tylenol 325mg Tab) 650 mg PO Q6 PRN PRN Reason: Fever >100.4 F Acetaminophen (Tylenol 325mg Tab) 650 mg PO Q6 PRN PRN Reason: Other Al Hydrox/Mg Hydrox/Simethicone (Maalox Plus 30 Ml) 30 ml PO Q6 PRN PRN Reason: Indigestion / Heartburn Amiodarone HCl (Cordarone) 100 mg PO DAILY [facility] Last Admin: 11/05/17 08:45 Dose: 100 mg Amlodipine Besylate (Norvasc) 5 mg PO DAILY [facility] Last Admin: 11/05/17 08:47 Dose: 5 mg Aspirin (Ecotrin) 81 mg PO DAILY [facility] Last Admin: 11/05/17 08:48 Dose: 81 mg Atorvastatin Calcium (Lipitor) 40 mg PO DAILY@2100 [facility] Last Admin: 11/04/17 21:51 Dose: 40 mg Ciprofloxacin (Cipro) 250 mg PO Q12 [facility] PRN Reason: Protocol Stop: 11/08/17 21:01 Last Admin: 11/05/17 08:44 Dose: 250 mg Clopidogrel Bisulfate (Plavix) 75 mg PO DAILY [facility] Last Admin: 11/05/17 08:46 Dose: 75 mg Docusate Sodium (Colace) 100 mg PO BID [facility] Last Admin: 11/05/17 08:44 Dose: 100 mg Enoxaparin Sodium (Lovenox) 40 mg SC DAILY [facility] PRN Reason: Protocol Last Admin: 11/05/17 08:46 Dose: 40 mg Ferrous Sulfate (Feosol) 325 mg PO BID [facility] Last Admin: 11/05/17 08:49 Dose: 325 mg Insulin Human Lispro (Humalog) 0 units SC [facility] PRN Reason: Protocol Last Admin: 11/05/17 06:55 Dose: Not Given Isosorbide Mononitrate (Imdur Er) 30 mg PO DAILY [facility] Last Admin: 11/05/17 08:48 Dose: 30 mg Levothyroxine Sodium (Synthroid) 200 mcg PO DAILY@0630 [facility] Last Admin: 11/05/17 06:31 Dose: 200 mcg Losartan Potassium (Cozaar) 50 mg PO DAILY [facility] Last Admin: 11/05/17 08:49 Dose: 50 mg Metformin HCl (Glucophage) 500 mg PO BID [facility] Last Admin: 11/05/17 08:49 Dose: 500 mg Metronidazole (Flagyl) 500 mg PO TID [facility] PRN Reason: Protocol Stop: 11/08/17 17:01 Last Admin: 11/05/17 08:49 Dose: 500 mg Olopatadine HCl (Patanol 0.1% Opht Soln) 1 drop OU DAILY [facility] Last Admin: 11/05/17 08:48 Dose: 1 drop Ondansetron HCl (Zofran Inj) 4 mg IVP Q6 PRN PRN Reason: Nausea/Vomiting Pantoprazole Sodium (Protonix Ec Tab) 40 mg PO DAILY [facility] Last Admin: 11/05/17 08:46 Dose: 40 mg Fluticasone/Salmeterol (Advair Diskus 250/50) 1 puff INH Q12 [facility] Last Admin: 11/05/17 08:44 Dose: 1 puff Sitagliptin Phosphate (Januvia) 100 mg PO DAILY [facility] Last Admin: 11/05/17 08:48 Dose: 100 mg - Labs Labs: 11/01/17 06:30 11/05/17 06:00
--- NOTE | 2017-11-05 13:41 | CP.PCM.DIS ---
Provider - Provider Date of Admission: 10/31/17 14:20 Attending physician: Sonido Mullen MD Primary care physician: Dr. Sorto, pulmonary Consults: Dr. Macario Belle Time Spent in preparation of Discharge (in minutes): 25 Hospital Course - Lab Results Lab Results: Most Recent Lab Values WBC 7.4 K/uL (4.8-10.8) 11/01/17 06:30 RBC 3.54 Mil/uL (3.80-5.20) L 11/01/17 06:30 Hgb 8.5 g/dL (12.0-16.0) L 11/01/17 06:30 Hct 28.1 % (34.0-47.0) L 11/01/17 06:30 MCV 79.5 fl (81.0-99.0) L 11/01/17 06:30 MCH 23.9 pg (27.0-31.0) L 11/01/17 06:30 MCHC 30.1 g/dL (33.0-37.0) L 11/01/17 06:30 RDW 27.4 % (11.5-14.5) H 11/01/17 06:30 Plt Count 208 K/uL (130-400) 11/01/17 06:30 MPV 8.4 fl (7.2-11.7) 11/01/17 06:30 Neut % (Auto) 61.5 % (50.0-75.0) 11/01/17 06:30 Lymph % (Auto) 24.6 % (20.0-40.0) 11/01/17 06:30 [place] % (Auto) 9.9 % (0.0-10.0) 11/01/17 06:30 Eos % (Auto) 3.0 % (0.0-4.0) 11/01/17 06:30 Baso % (Auto) 1.0 % (0.0-2.0) 11/01/17 06:30 Neut # 4.5 K/uL (1.8-7.0) 11/01/17 06:30 Lymph # 1.8 K/uL (1.0-4.3) 11/01/17 06:30 [place] # 0.7 K/uL (0.0-0.8) 11/01/17 06:30 Eos # 0.2 K/uL (0.0-0.7) 11/01/17 06:30 Baso # 0.1 K/uL (0.0-0.2) 11/01/17 06:30 Sodium 131 mmol/l (132-148) L 11/05/17 06:00 Potassium 3.7 MMOL/L (3.6-5.0) 11/05/17 06:00 Chloride 96 mmol/L (98-107) L 11/05/17 06:00 Carbon Dioxide 29 mmol/L (22-30) 11/05/17 06:00 Anion Gap 10 (10-20) 11/05/17 06:00 BUN 3 mg/dl (7-17) L 11/05/17 06:00 Creatinine 0.5 mg/dl (0.7-1.2) L 11/05/17 06:00 Est GFR ( Amer) > 60 11/05/17 06:00 Est GFR (Non-Af Amer) > 60 11/05/17 06:00 POC Glucose (mg/dL) 106 mg/dL (65-110) 11/05/17 11:00 Random Glucose 81 mg/dL (65-105) 11/05/17 06:00 Calcium 8.4 mg/dL (8.4-10.2) 11/05/17 06:00 - Hospital Course Hospital Course: 86 year old female PMH CAD, HTN, AFib, hypothyroid, diabetes mellitus with one month history of increased dyspnea, normal echo in November,presented to ER initially on 10/22/2017 for evaluation found to be anemic on admission with H/H 5.8/19.2. 2 UNITS PRBC were transfused 10/22/17 with a third unit transfused . CT abdomen showed diverticulosis and mild acute diverticulitis. Patient started on IVF , Cipro and Flagyl. Occult blood reported as negative. GI and ID were consulted. Patient then was clinically improving , tolerating PO intake. Advised to continue Cipro and flagyl for total 10 days, which will be completed po as outpatient. Colonoscopy as outpatient in 6 weeks. Received Venofer IV and started on Ferrous sulfate PO. Patient has sleep apnea and has not been using CPAP while in hospital. Pulmonary consulted and placed on Bipap 10/27. PCO2 44 on 10/28. Repeat ABG ASA and plavix resumed since patient is not actively bleeding and occult blood is negative. H & H stable after transfusion Tolerating PO intake and had regular BM. Cipro and Flagyl total of 10 days Was sent to TCU after discharge for further PT/OT and had an uncomplicated stay. She is doing much better today and regained much of her strength. She was discharged to home in stable condition. 1. Anemia- stable - Most likely due to bleed from diverticulosis/ diverticulitis. No active bleed at present, occult blood is negative - s/p 3 units of PRBC total transfused since admission - H/H, 8.5 - Continue Feosol, ASA, plavix - Colonoscopy as outpatient 2. Diverticulitis - Abdomen/pelvis CT: Severe diverticulosis affecting descending colon and sigmoid. Mild acute sigmoid diverticulitis - advanced diet to consistent carb diet - GI consult appreciated - occult blood negative for bleed - Stool culture: No salmonella, shigella, or campylobacter isolated - Will continue Cipro and flagyl for total of 10 days (given po as outpatient) Outpatient colonoscopy after 6 weeks 3. Acute hypercarbic respiratory failure- resolved - Thorocentesis performed today. 600 cc fluid removed - Pulmonology consulted - O2 sat 96% w/ high flow nasal cannula - Continue albuterol - Dr. Sorto- f/u in 48 hours as outpatient 4. Paroxysmal Atrial Fibrillation - SR - Continue amiodarone, ASA 5. Diabetes Mellitus - Controlled - POC glucose 93 - Random glucose 69 - Continue humalog, metformin, Januvia - Diabetic diet 6. HTN - BP 147/73 - Continue Norvasc, Lipitor, Imdur, Cozaar - Controlled - Monitor 7. Hypothyroidism - TSH 8.87 - Continue Synthroid 9. DJD, shoulder - Continue tylenol, prn pain 10. DVT prophylaxis - SCDs - Continue ASA, plavix 11. Depression - Held Citalopram [CeleXA] 10 mg PO DAILY - HOLD - Pregabalin [Lyrica] 50 mg PO HS Discharge Exam - Additional Findings Additional findings: Physical exam: Constitutional- cooperative, awake, alert Head- NCAT, PERRL Eye- PERRL, EOMI ENT- normal exam, MMM. Neck- normal inspection, supple, no JVD Respiratory- CTAB, no wheezes rales rhonchi Cardiovascular- RRR, +S1, +S2 no MRG GI/Abdominal- normal bowel sounds, soft, no mass, no hsm Skin- warm, dry Extremities Exam- Trace dependent edema, bilateral lower extremities. normal capillary refill, normal inspection Neurological Exam- alert, awake, oriented Psych- normal mood, normal affe Discharge Plan - Discharge Medications Prescriptions: Aluminum Hydroxide/Magnesium [Maalox Plus 30 ml] 30 ml PO Q6 PRN #1 bottle PRN Reason: Indigestion / Heartburn Amiodarone [Cordarone] 100 mg PO DAILY #30 tab amLODIPine [Norvasc] 5 mg PO DAILY #30 tab Aspirin [Ecotrin] 81 mg PO DAILY #30 tabec Atorvastatin [Lipitor] 40 mg PO DAILY #30 tab Ciprofloxacin HCl [Cipro] 250 mg PO Q12 #9 tab Citalopram Hydrobromide [Celexa] 10 mg PO DAILY #30 tablet Clopidogrel [Plavix] 75 mg PO DAILY #30 tab Docusate [Colace] 100 mg PO BID #60 cap Ferrous Sulfate [Feosol] 325 mg PO BID #60 tab Fluticasone/Vilanterol [Breo Ellipta 200-25 Mcg INH] 1 puff INH DAILY #1 inhaler Isosorbide Mononitrate ER [Imdur ER] 30 mg PO DAILY #30 tab Levothyroxine [Synthroid] 200 mcg PO DAILY@0630 #30 tab Losartan [Cozaar] 50 mg PO DAILY #30 tab metFORMIN [glucOPHAGE] 500 mg PO BID #60 tab Metronidazole [Flagyl] 500 mg PO TID #12 tab Olopatadine HCl [Pazeo] 1 drop EACHEYE DAILY #1 bottle Omeprazole 20 mg PO DAILY #30 capsule. Pregabalin [Lyrica] 50 mg PO HS #30 cap SITagliptin [Januvia] 100 mg PO DAILY #30 tab - Follow Up Plan Condition: GOOD Disposition: HOME/ ROUTINE Instructions: Heart Failure (DC), Heart Failure (GEN) Referrals: Hemant Sorto MD [Staff Provider] - (Follow-up in 11/11/2017 )
== END 2017-11-05 14:45 | disposition home health service (06) | DRG 812 ==
LOC: H.TCU 10-31 14:20
PROVIDERS: ADMIT Hospitalist; ATTEND Hospitalist
PROC: F07Z9FZ Gait Training/Functional Ambulation Treatment using Assistive, Adaptive, Supportive or Protective Equipment (ICD-10-PCS; principal; 2017-10-31)
PROC: F08Z4FZ Home Management Treatment using Assistive, Adaptive, Supportive or Protective Equipment (ICD-10-PCS; 2017-10-31)
PROC: F07M6FZ Therapeutic Exercise Treatment of Musculoskeletal System - Whole Body using Assistive, Adaptive, Supportive or Protective Equipment (ICD-10-PCS; 2017-11-01)
DX: D50.0 Iron deficiency anemia secondary to blood loss (chronic) (principal); K57.32 Diverticulitis of large intestine without perforation or abscess without bleeding; I11.0 Hypertensive heart disease with heart failure; I48.0 Paroxysmal atrial fibrillation; E87.1 Hypo-osmolality and hyponatremia; J44.9 Chronic obstructive pulmonary disease, unspecified; I50.9 Heart failure, unspecified; I25.10 Atherosclerotic heart disease of native coronary artery without angina pectoris; E03.9 Hypothyroidism, unspecified; E78.00 Pure hypercholesterolemia, unspecified; E11.9 Type 2 diabetes mellitus without complications; G47.30 Sleep apnea, unspecified; M19.019 Primary osteoarthritis, unspecified shoulder; F32.9 Major depressive disorder, single episode, unspecified; Z90.49 Acquired absence of other specified parts of digestive tract

== ENCOUNTER 2018-01-22 12:05 | Observation (INO) | payer MEDICARE, MEDICAID ==
[2018-01-22 12:05] VITALS: BMI 32.3
[2018-01-22] MEDS ORDERED: Albuterol-Ipratrop 3 mg / 0.5 (3 ml) UD INH STA (13:17)
[2018-01-22] MEDS ORDERED: Albuterol-Ipratrop 3 mg / 0.5 (3 ml) UD ONE (13:32)
--- NOTE | 2018-01-22 13:58 | RAD ---
HISTORY: SOB COMPARISON: 11/04/2017 FINDINGS: LUNGS: No active pulmonary disease. PLEURA: No significant pleural effusion identified, no pneumothorax apparent. CARDIOVASCULAR: Cardiomegaly. No evidence of acute, significant cardiovascular disease. OSSEOUS STRUCTURES: No significant abnormalities. VISUALIZED UPPER ABDOMEN: Normal. OTHER FINDINGS: None. IMPRESSION: No active disease. No significant interval change compared to the prior examination(s).
--- NOTE | 2018-01-22 14:33 | ED PDOC ---
HPI: SOB/CHF/COPD Time Seen by Provider: 01/22/18 12:26 Chief Complaint (Nursing): Shortness Of Breath Chief Complaint (Provider): Shortness of Breath History Per: Patient History/Exam Limitations: no limitations Onset/Duration Of Symptoms: Days (x1) Current Symptoms Are (Timing): Still Present Associated Symptoms: Chest Pain. denies: Fever, Productive Cough Additional Complaint(s): Katie Cook is an 87 year old female with a Atrial Fibrillation, CAD, COPD , Congestive heart failure, diabetes, HTN, hyperlipidemia, and sleep apnea, who is presenting to the ER with complains of shortness of breath with associated chest pain, onset yesterday. Patient reports to have been admitted recently for similar problems but felt better and was discharged. She states that now the shortness of breath is back, but denies any cough or fever. Patient is able to communicate in full sentences and offers no other medical complaints at this time. PMD: none provided Past Medical History Reviewed: Historical Data, Nursing Documentation, Vital Signs Vital Signs: Last Vital Signs Temp 98.6 F 01/23/18 12:00 Pulse 87 01/23/18 12:00 Resp 18 01/23/18 12:00 BP 132/76 01/23/18 12:00 Pulse Ox 100 01/25/18 23:42 - Medical History PMH: Arthritis, Asthma, Atrial Fibrillation, Bronchitis, CAD (Questionable), CHF , COPD, Diabetes (type II), Diverticulitis, HTN, Hypercholesterolemia, Hyperthyroidism, Hypothyroidism, Pneumonia, Sleep Apnea Denies: HIV, Chronic Kidney Disease - Surgical History Surgical History: Back Surgery, Cholecystectomy Denies: CABG - Family History Family History: States: Unknown Family Hx, Hypertension - Immunization History Hx Tetanus Toxoid Vaccination: No Hx Influenza Vaccination: No Hx Pneumococcal Vaccination: No - Home Medications Home Medications: Ambulatory Orders Medication Instructions Recorded Aspirin [Ecotrin] 81 mg PO DAILY #30 tabec 11/04/17 Atorvastatin [Lipitor] 40 mg PO DAILY #30 tab 11/04/17 Clopidogrel [Plavix] 75 mg PO DAILY #30 tab 11/04/17 Isosorbide Mononitrate ER [Imdur 30 mg PO DAILY #30 tab 11/04/17 ER] Olopatadine HCl [Pazeo] 1 drop EACHEYE DAILY #1 bottle 11/04/17 Omeprazole 20 mg PO DAILY #30 capsule.dr 11/04/17 amLODIPine [Norvasc] 5 mg PO DAILY #30 tab 11/04/17 Losartan [Cozaar] 100 mg PO DAILY 01/22/18 Meloxicam [Mobic] 7.5 mg PO BID 01/22/18 Nitroglycerin [Nitrostat] 0.4 mg SL Q5MIN PRN 01/22/18 Pregabalin [Lyrica] 75 mg PO Q12 01/22/18 Sitagliptin Phos/Metformin HCl 1 tab PO QPM 01/22/18 [Janumet Xr 100-1,000 mg Tablet] Furosemide [Lasix] 40 mg PO DAILY #30 tab 01/23/18 Levothyroxine [Synthroid] 175 mcg PO DAILY@0630 #30 tab 01/23/18 - Allergies Allergies/Adverse Reactions: Allergies Allergy/AdvReac Type Severity Reaction Status Date / Time No Known Allergies Allergy Verified 01/22/18 12:12 Review of Systems ROS Statement: Except As Marked, All Systems Reviewed And Found Negative Constitutional: Negative for: Fever Cardiovascular: Positive for: Chest Pain Respiratory: Positive for: Shortness of Breath. Negative for: Cough Physical Exam - Reviewed Nursing Documentation Reviewed: Yes Vital Signs Reviewed: Yes - Physical Exam Appears: Positive for: Non-toxic, No Acute Distress Head Exam: Positive for: ATRAUMATIC, NORMAL INSPECTION, NORMOCEPHALIC Skin: Positive for: Normal Color, Warm, Dry Eye Exam: Positive for: EOMI, Normal appearance, PERRL Neck: Positive for: Normal, Painless ROM, Supple Cardiovascular/Chest: Positive for: Irregularly Irregular. Negative for: Murmur Respiratory: Positive for: Crackles (left basal) Gastrointestinal/Abdominal: Positive for: Normal Exam, Soft. Negative for: Tenderness Back: Positive for: Normal Inspection. Negative for: L CVA Tenderness, R CVA Tenderness, Vertebral Tenderness Extremity: Positive for: Normal ROM, Other (3+ pitting edema bilaterally) Neurologic/Psych: Positive for: Alert, Oriented. Negative for: Motor/Sensory Deficits - Laboratory Results Result Diagrams: 01/23/18 05:00 01/23/18 05:00 - ECG Interpretation Of ECG: A fib @ 87, IRBBB. O2 Sat by Pulse Oximetry: 100 (RA) Pulse Ox Interpretation: Normal Medical Decision Making Medical Decision Making: Time: 13:17 Differentials: Atrial Fibrillation, Conjestive Heart Failure Plan: --EKG --B-Type Natriuretic Peptide --CMP --Troponin --ED Urine Dipstick --PTT --Coag --CXR --Duoneb 3 ml INH --Blood Culture --Peak Flow PRE/POST Tx --Influenza A B Accession No. : [id number] Patient Name / ID : KEISHA POWELL / [id number] Exam Date : 01/22/2018 13:17:37 ( Approved ) Study Comment : Sex / Age : F / 87Y Creator : Nick Orosco MD Dictator : Nick Orosco MD Taxi Servicer : Audio Visual Specialist : Nick Orosco MD Approver2 : Report Date : 01/22/2018 13:56:47 My Comment : HISTORY: SOB COMPARISON: 11/04/2017 FINDINGS: LUNGS: No active pulmonary disease. PLEURA: No significant pleural effusion identified, no pneumothorax apparent. CARDIOVASCULAR: Cardiomegaly. No evidence of acute, significant cardiovascular disease. OSSEOUS STRUCTURES: No significant abnormalities. VISUALIZED UPPER ABDOMEN: Normal. OTHER FINDINGS: None. IMPRESSION: No active disease. No significant interval change compared to the prior examination(s). Scribe Attestation: Documented by Shirley Jimenez, acting as a scribe for Sridevi Dumont MD. Provider Scribe Attestation: All medical record entries made by the Scribe were at my direction and personally dictated by me. I have reviewed the chart and agree that the record accurately reflects my personal performance of the history, physical exam, medical decision making, and the department course for this patient. I have also personally directed, reviewed, and agree with the discharge instructions and disposition. Disposition - Clinical Impression Clinical Impression: CHF (congestive heart failure), Atrial fibrillation, Dyspnea - Patient ED Disposition Is Patient to be Admitted: Yes - Disposition Disposition Time: 10:36 Condition: GUARDED - Pt Status Changed To: Hospital Disposition Of: Inpatient - Admit Certification Admit to Inpatient:: After my assessment, the patient will require hospitalization for at least two midnights. This is because of the severity of symptoms shown, intensity of services needed, and/or the medical risk in this patient being treated as an outpatient. - POA Present On Arrival: None
[2018-01-22 14:43] LABS: ALBUMIN 3.6 g/dL (3.5-5.0); ALT/SGPT 29 U/L (9-52); AST/SGOT 43 U/L (14-36); BLOOD UREA NITROGEN 17 mg/dl (7-17); CALCIUM 8.7 mg/dL (8.4-10.2); GFR AFRICAN-AMERICAN > 60; GFR NON-AFRICAN AMERICAN > 60
[2018-01-22 14:48] LABS: INR 1.2 (0.9-1.2); PARTIAL THROMBOPLASTIN TIME 33.5 Seconds (25.6-37.1); PROTHROMBIN TIME 13.4 Seconds (9.8-13.1)
--- NOTE | 2018-01-22 14:48 | CARD ---
APPROVED REPORT EKG Measurement Heart [id number] <Conclusion> Atrial fibrillation Incomplete right bundle branch block Nonspecific T wave abnormality Abnormal ECG
[2018-01-22 14:54] LABS: B-TYPE NATRIURETIC PEPTIDE 1490 pg/ml (0-900)
[2018-01-22 15:39] LABS: BASO # 0.1 K/uL (0.0-0.2); BASO % 0.8 % (0.0-2.0); EOS # 0.2 K/uL (0.0-0.7); EOS % 2.4 % (0.0-4.0); HEMOGLOBIN 8.3 g/dL (12.0-16.0); LYMPH % 27.8 % (20.0-40.0); MEAN CELL VOLUME 84.6 fl (81.0-99.0); MEAN CORPUSCULAR HEMOGLOBIN 26.4 pg (27.0-31.0); MEAN CORPUSCULAR HGB CONC 31.2 g/dL (33.0-37.0); MEAN PLATELET VOLUME 9.5 fl (7.2-11.7); MONO # 0.5 K/uL (0.0-0.8); MONO % 6.3 % (0.0-10.0); NEUT # 4.4 K/uL (1.8-7.0); NEUT % 62.7 % (50.0-75.0); RBC 3.14 Mil/uL (3.80-5.20); RED CELL DISTRIBUTION WIDTH 21.6 % (11.5-14.5); WHITE BLOOD COUNT 7.1 K/uL (4.8-10.8)
--- NOTE | 2018-01-22 15:47 | CP.PCM.HP ---
History of Present Illness - History of Present Illness History of Present Illness: 87 yo female with history of CAD, HTN, AFib, CHF, DM2, COPD and Hypothyroidism brought by family because of worsening dyspnea since yesterday. Patient denied chest pain, nausea or vomiting. Patient claimed she was taking water pills but discontinued it because it was making her urinate too much. Present on Admission - Present on Admission Any Indicators Present on Admission: No History of DVT/PE: No History of Uncontrolled Diabetes: No Urinary Catheter: No Decubitus Ulcer Present: No Review of Systems - Review of Systems All systems: reviewed and no additional remarkable complaints except (aside from those mentioned above, 14 point system review were negative by me) Past Patient History - Infectious Disease Hx of Infectious Diseases: None - Past Medical History & Family History Past Medical History?: Yes - Past Social History Smoking Status: Former Smoker Alcohol: None Drugs: Denies Home Situation {Lives}: With Family - CARDIAC Hx Atrial Fibrillation: Yes Hx Congestive Heart Failure: Yes Hx Hypercholesterolemia: Yes Hx Hypertension: Yes - PULMONARY Hx Asthma: Yes Hx Bronchitis: Yes Hx Chronic Obstructive Pulmonary Disease (COPD): Yes Hx Pneumonia: Yes Hx Sleep Apnea: Yes - NEUROLOGICAL Hx Neurological Disorder: No - HEENT Hx HEENT Problems: No - RENAL Hx Chronic Kidney Disease: No - ENDOCRINE/METABOLIC Hx Hyperthyroidism: Yes Hx Hypothyroidism: Yes - HEMATOLOGICAL/ONCOLOGICAL Hx Human Immunodeficiency Virus (HIV): No - INTEGUMENTARY Hx Dermatological Problems: No - MUSCULOSKELETAL/RHEUMATOLOGICAL Hx Arthritis: Yes - GASTROINTESTINAL Hx Diverticulitis: Yes - GENITOURINARY/GYNECOLOGICAL Hx Genitourinary Disorders: No - PSYCHIATRIC Hx Psychophysiologic Disorder: No Hx Substance Use: No - SURGICAL HISTORY Hx Cardiac Catheterization: Yes (6 months ago at [facility] (told be negative study)) Hx Cholecystectomy: Yes Hx Coronary Artery Bypass Graft: No - ANESTHESIA Hx Anesthesia: Yes Hx Anesthesia Reactions: No Hx Malignant Hyperthermia: No Meds Allergies/Adverse Reactions: Allergies Allergy/AdvReac Type Severity Reaction Status Date / Time No Known Allergies Allergy Verified 01/22/18 12:12 Physical Exam - Constitutional Appears: No Acute Distress - Head Exam Head Exam: ATRAUMATIC - Eye Exam Eye Exam: absent: Scleral icterus - ENT Exam ENT Exam: Mucous Membranes Moist - Neck Exam Neck exam: Negative for: Meningismus - Respiratory Exam Respiratory Exam: Rales (on both lower lung hunter), Respiratory Distress (mild respiratory distress). absent: Wheezes, Stridor - Cardiovascular Exam Cardiovascular Exam: Irregular Rhythm - GI/Abdominal Exam GI & Abdominal Exam: Soft. absent: Tenderness - Rectal Exam Rectal Exam: Deferred - Extremities Exam Extremities exam: Positive for: pedal edema. Negative for: calf tenderness - Back Exam Back exam: absent: tenderness - Neurological Exam Neurological exam: Alert, Oriented x3 - Psychiatric Exam Psychiatric exam: Normal Affect - Skin Skin Exam: Dry, Intact Results - Vital Signs Recent Vital Signs: Last Vital Signs Temp 98.0 F 01/22/18 12:23 Pulse 83 01/22/18 12:23 Resp 17 01/22/18 14:46 BP 142/74 01/22/18 12:23 Pulse Ox 100 01/22/18 14:57 - Labs Result Diagrams: 01/22/18 14:20 Labs: Laboratory Results - last 24 hr 01/22/18 01/22/18 01/22/18 13:50 14:20 14:20 PT 13.4 H INR 1.2 APTT 33.5 Sodium 142 Potassium 4.7 Chloride 102 Carbon Dioxide 25 Anion Gap 20 BUN 17 Creatinine 0.6 L Est GFR ( Amer) > 60 Est GFR (Non-Af Amer) > 60 Random Glucose 156 H Calcium 8.7 Total Bilirubin 0.5 AST 43 H ALT 29 Alkaline Phosphatase 108 Troponin I < 0.0120 NT-Pro-B Natriuret Pep 1490 H Total Protein 7.1 Albumin 3.6 Globulin 3.5 Albumin/Globulin Ratio 1.0 Influenza Typ A,B (EIA) Negative for flu a/b Assessment & Plan - Assessment and Plan (Free Text) Assessment: 87 yo female with history of CAD, HTN, AFib, CHF, DM2, COPD and Hypothyroidism brought by family because of worsening dyspnea since yesterday. Patient denied chest pain, nausea or vomiting. Patient claimed she was taking water pills but discontinued it because it was making her urinate too much. 1. CHF ECHO Lasix 40mg IV daily Losartan 100mg PO daily Isosorbide 30mg PO daily serial Troponin cardiology consult with Dr Arriaga 2. COPD Advair 250/50 1 puff q 12hrs Duoneb q 4hrs prn for SOB/wheezing 3. CAD ASA, Plavix, Lipitor continue Isosorbide Mononitrate ER 30mg PO daily 4. HTN BP stable continue Amlodipine, Losartan 5. AFib not on anti-coagulant because of history of GI bleed HR controlled patient was on Amiodarone 100mg PO daily on last admission in October but unsure whether DC by PCP 6. DM2 BS controlled accucheck ACHS Januvia 100mg PO daily Metformin 500mg PO BID HgA1C, BMP in am 7. Hypothyroidism TSH in am continue Levothyroxine 200mcg PO daily 8. DVt prophylaxis venodyne boots while in bed avoid anticoagulant because of previous GI bleed on last admission
--- NOTE | 2018-01-22 17:55 | CP.PCM.CON ---
History of Present Illness - History of Present Illness History of Present Illness: 87 yo female with history of CAD, HTN, AFib, CHF, DM2, COPD and Hypothyroidism brought by family because of worsening dyspnea since yesterday. Patient denied chest pain, nausea or vomiting. Patient claimed she was taking water pills but discontinued it because it was making her urinate too much. Troponin: neg BNP: 1490 EKG: atrial fibrillation Echo: good LV function EF: 65-70% Trace MR Past Patient History - Infectious Disease Hx of Infectious Diseases: None - Past Medical History & Family History Past Medical History?: Yes - Past Social History Smoking Status: Former Smoker - CARDIAC Hx Atrial Fibrillation: Yes Hx Congestive Heart Failure: Yes Hx Hypercholesterolemia: Yes Hx Hypertension: Yes - PULMONARY Hx Asthma: Yes Hx Bronchitis: Yes Hx Chronic Obstructive Pulmonary Disease (COPD): Yes Hx Pneumonia: Yes Hx Sleep Apnea: Yes - NEUROLOGICAL Hx Neurological Disorder: No - HEENT Hx HEENT Problems: No - RENAL Hx Chronic Kidney Disease: No - ENDOCRINE/METABOLIC Hx Hyperthyroidism: Yes Hx Hypothyroidism: Yes - HEMATOLOGICAL/ONCOLOGICAL Hx Human Immunodeficiency Virus (HIV): No - INTEGUMENTARY Hx Dermatological Problems: No - MUSCULOSKELETAL/RHEUMATOLOGICAL Hx Falls: No - GASTROINTESTINAL Hx Diverticulitis: Yes - GENITOURINARY/GYNECOLOGICAL Hx Genitourinary Disorders: No - PSYCHIATRIC Hx Substance Use: No - SURGICAL HISTORY Hx Cardiac Catheterization: Yes (6 months ago at [facility] (told be negative study)) Hx Cholecystectomy: Yes Hx Coronary Artery Bypass Graft: No - ANESTHESIA Hx Anesthesia: Yes Hx Anesthesia Reactions: No Hx Malignant Hyperthermia: No Meds Home Medications: Home Medication List Medication Instructions Recorded Confirmed Type Furosemide [Lasix] 40 mg PO DAILY #30 tab 01/23/18 Rx Levothyroxine [Synthroid] 175 mcg PO DAILY@0630 #30 tab 01/23/18 Rx Allergies/Adverse Reactions: Allergies Allergy/AdvReac Type Severity Reaction Status Date / Time No Known Allergies Allergy Verified 01/22/18 12:12 - Medications Medications: Current Medications Amlodipine Besylate (Norvasc) 5 mg PO DAILY [facility] Aspirin (Ecotrin) 81 mg PO DAILY [facility] Atorvastatin Calcium (Lipitor) 40 mg PO DAILY [facility] Clopidogrel Bisulfate (Plavix) 75 mg PO DAILY [facility] Docusate Sodium (Colace) 100 mg PO BID PRN PRN Reason: Constipation Furosemide (Lasix) 40 mg IV DAILY [facility] Last Admin: 01/22/18 17:32 Dose: 40 mg Home Med (Olopatadine Hcl [Pazeo]) 1 drop EACHEYE DAILY [facility] Isosorbide Mononitrate (Imdur Er) 30 mg PO DAILY [facility] Levothyroxine Sodium (Synthroid) 150 mcg PO DAILY@0630 [facility] Losartan Potassium (Cozaar) 100 mg PO DAILY [facility] Metformin HCl (Glucophage) 500 mg PO 0900,1800 [facility] Last Admin: 01/22/18 17:33 Dose: 500 mg Nitroglycerin (Nitrostat Sl Tab) 0.4 mg SL Q5MIN PRN PRN Reason: Chest pain Pantoprazole Sodium (Protonix Ec Tab) 40 mg PO DAILY [facility] Pregabalin (Lyrica) 75 mg PO Q12 [facility] Sitagliptin Phosphate (Januvia) 100 mg PO QPM [facility] Physical Exam - Constitutional Appears: Well - ENT Exam ENT Exam: Normal Exam - Neck Exam Neck exam: Positive for: Normal Inspection - Respiratory Exam Respiratory Exam: NORMAL BREATHING PATTERN - Cardiovascular Exam Cardiovascular Exam: Irregular Rhythm Results - Vital Signs Recent Vital Signs: Last Vital Signs Temp 98.0 F 01/22/18 16:06 Pulse 79 01/22/18 16:06 Resp 15 01/22/18 16:06 BP 160/75 H 01/22/18 17:32 Pulse Ox 97 01/22/18 16:04 - Labs Result Diagrams: 01/23/18 05:00 01/23/18 05:00 Labs: Laboratory Results - last 24 hr 01/22/18 01/22/18 01/22/18 13:50 14:20 14:20 WBC RBC Hgb Hct MCV MCH MCHC RDW Plt Count MPV Neut % (Auto) Lymph % (Auto) Saunders % (Auto) Eos % (Auto) Baso % (Auto) Neut # (Auto) Lymph # (Auto) Saunders # (Auto) Eos # (Auto) Baso # (Auto) PT 13.4 H INR 1.2 APTT 33.5 Sodium 142 Potassium 4.7 Chloride 102 Carbon Dioxide 25 Anion Gap 20 BUN 17 Creatinine 0.6 L Est GFR ( Amer) > 60 Est GFR (Non-Af Amer) > 60 Random Glucose 156 H Calcium 8.7 Total Bilirubin 0.5 AST 43 H ALT 29 Alkaline Phosphatase 108 Troponin I < 0.0120 NT-Pro-B Natriuret Pep 1490 H Total Protein 7.1 Albumin 3.6 Globulin 3.5 Albumin/Globulin Ratio 1.0 Influenza Typ A,B (EIA) Negative for flu a/b 01/22/18 15:20 WBC 7.1 RBC 3.14 L Hgb 8.3 L Hct 26.6 L MCV 84.6 D MCH 26.4 L MCHC 31.2 L RDW 21.6 H Plt Count 155 MPV 9.5 Neut % (Auto) 62.7 Lymph % (Auto) 27.8 Saunders % (Auto) 6.3 Eos % (Auto) 2.4 Baso % (Auto) 0.8 Neut # (Auto) 4.4 Lymph # (Auto) 2.0 Saunders # (Auto) 0.5 Eos # (Auto) 0.2 Baso # (Auto) 0.1 PT INR APTT Sodium Potassium Chloride Carbon Dioxide Anion Gap BUN Creatinine Est GFR ( Amer) Est GFR (Non-Af Amer) Random Glucose Calcium Total Bilirubin AST ALT Alkaline Phosphatase Troponin I NT-Pro-B Natriuret Pep Total Protein Albumin Globulin Albumin/Globulin Ratio Influenza Typ A,B (EIA) Assessment & Plan (1) CHF (congestive heart failure) Assessment and Plan: Pt appears stable Echo: normal pt may be d/c ed Status: Acute (2) COPD (chronic obstructive pulmonary disease) Status: Acute
[2018-01-22] MEDS ORDERED: Patient's Own Med (Sitagliptin Phos/Metformin Hcl [Janumet Xr 100-1,000 Mg Tablet] 1 TAB) PO SCH (18:00)
[2018-01-23] MEDS ORDERED: Levothyroxine 150 MCG TAB PO SCH (06:30)
[2018-01-23 06:44] LABS: BASO # 0.1 K/uL (0.0-0.2); BASO % 0.8 % (0.0-2.0); EOS # 0.2 K/uL (0.0-0.7); EOS % 2.3 % (0.0-4.0); HEMOGLOBIN 8.1 g/dL (12.0-16.0); LYMPH # 2.3 K/uL (1.0-4.3); LYMPH % 31.2 % (20.0-40.0); MEAN CELL VOLUME 83.3 fl (81.0-99.0); MEAN CORPUSCULAR HEMOGLOBIN 26.5 pg (27.0-31.0); MEAN CORPUSCULAR HGB CONC 31.9 g/dL (33.0-37.0); MEAN PLATELET VOLUME 9.3 fl (7.2-11.7); MONO # 0.5 K/uL (0.0-0.8); MONO % 6.7 % (0.0-10.0); NEUT # 4.4 K/uL (1.8-7.0); NRBC % 0.1 % (0.0-0.0); RBC 3.05 Mil/uL (3.80-5.20); RED CELL DISTRIBUTION WIDTH 20.5 % (11.5-14.5); WHITE BLOOD COUNT 7.5 K/uL (4.8-10.8)
[2018-01-23 06:55] LABS: BLOOD UREA NITROGEN 15 mg/dl (7-17); CALCIUM 8.9 mg/dL (8.4-10.2); GFR AFRICAN-AMERICAN > 60; GFR NON-AFRICAN AMERICAN > 60; HDL CHOLESTEROL 33 MG/DL (30-70)
[2018-01-23 07:04] LABS: LDL CHOLESTEROL 40 mg/dL (0-129)
[2018-01-23] MEDS ORDERED: Pantoprazole 40 mg EC Tab PO SCH (09:00)
[2018-01-23] MEDS ORDERED: OLOPATADINE HCL EACHEYE SCH (09:00)
--- NOTE | 2018-01-23 09:44 | CP.PCM.CON ---
History of Present Illness - History of Present Illness History of Present Illness: Initially seen yesterday in the emergency room for SOB. Past Patient History - Infectious Disease Hx of Infectious Diseases: None - Past Medical History & Family History Past Medical History?: Yes - Past Social History Smoking Status: Former Smoker - CARDIAC Hx Atrial Fibrillation: Yes Hx Congestive Heart Failure: Yes Hx Hypercholesterolemia: Yes Hx Hypertension: Yes - PULMONARY Hx Asthma: Yes Hx Bronchitis: Yes Hx Chronic Obstructive Pulmonary Disease (COPD): Yes Hx Pneumonia: Yes Hx Sleep Apnea: Yes - NEUROLOGICAL Hx Neurological Disorder: No - HEENT Hx HEENT Problems: No - RENAL Hx Chronic Kidney Disease: No - ENDOCRINE/METABOLIC Hx Hyperthyroidism: Yes Hx Hypothyroidism: Yes - HEMATOLOGICAL/ONCOLOGICAL Hx Human Immunodeficiency Virus (HIV): No - INTEGUMENTARY Hx Dermatological Problems: No - MUSCULOSKELETAL/RHEUMATOLOGICAL Hx Falls: No - GASTROINTESTINAL Hx Diverticulitis: Yes - GENITOURINARY/GYNECOLOGICAL Hx Genitourinary Disorders: No - PSYCHIATRIC Hx Substance Use: No - SURGICAL HISTORY Hx Cardiac Catheterization: Yes (6 months ago at [facility] (told be negative study)) Hx Cholecystectomy: Yes Hx Coronary Artery Bypass Graft: No - ANESTHESIA Hx Anesthesia: Yes Hx Anesthesia Reactions: No Hx Malignant Hyperthermia: No Meds Allergies/Adverse Reactions: Allergies Allergy/AdvReac Type Severity Reaction Status Date / Time No Known Allergies Allergy Verified 01/22/18 12:12 - Medications Medications: Current Medications Amlodipine Besylate (Norvasc) 5 mg PO DAILY [facility] Aspirin (Ecotrin) 81 mg PO DAILY [facility] Last Admin: 01/23/18 08:18 Dose: 81 mg Atorvastatin Calcium (Lipitor) 40 mg PO DAILY [facility] Last Admin: 01/23/18 08:23 Dose: 40 mg Clopidogrel Bisulfate (Plavix) 75 mg PO DAILY [facility] Last Admin: 01/23/18 08:18 Dose: 75 mg Docusate Sodium (Colace) 100 mg PO BID PRN PRN Reason: Constipation Furosemide (Lasix) 40 mg IV DAILY [facility] Last Admin: 01/22/18 17:32 Dose: 40 mg Home Med (Olopatadine Hcl [Pazeo]) 1 drop EACHEYE DAILY [facility] Isosorbide Mononitrate (Imdur Er) 30 mg PO DAILY [facility] Levothyroxine Sodium (Synthroid) 150 mcg PO DAILY@0630 [facility] Last Admin: 03/16/18 05:51 Dose: 150 mcg Losartan Potassium (Cozaar) 100 mg PO DAILY [facility] Metformin HCl (Glucophage) 500 mg PO 0900,1800 [facility] Last Admin: 01/23/18 08:19 Dose: 500 mg Nitroglycerin (Nitrostat Sl Tab) 0.4 mg SL Q5MIN PRN PRN Reason: Chest pain Pantoprazole Sodium (Protonix Ec Tab) 40 mg PO DAILY [facility] Last Admin: 01/23/18 08:18 Dose: 40 mg Pregabalin (Lyrica) 75 mg PO Q12 [facility] Last Admin: 01/23/18 08:25 Dose: 75 mg Sitagliptin Phosphate (Januvia) 100 mg PO QPM [facility] Results - Vital Signs Recent Vital Signs: Last Vital Signs Temp 98 F 01/23/18 08:00 Pulse 85 01/23/18 08:00 Resp 20 01/23/18 08:00 BP 166/84 H 01/23/18 08:00 Pulse Ox 98 01/23/18 08:00 - Labs Result Diagrams: 01/23/18 05:00 01/23/18 05:00 Labs: Laboratory Results - last 24 hr 01/22/18 01/22/18 01/22/18 13:50 14:20 14:20 WBC RBC Hgb Hct MCV MCH MCHC RDW Plt Count MPV Neut % (Auto) Lymph % (Auto) Chaves % (Auto) Eos % (Auto) Baso % (Auto) Neut # (Auto) Lymph # (Auto) Chaves # (Auto) Eos # (Auto) Baso # (Auto) PT 13.4 H INR 1.2 APTT 33.5 Sodium 142 Potassium 4.7 Chloride 102 Carbon Dioxide 25 Anion Gap 20 BUN 17 Creatinine 0.6 L Est GFR ( Amer) > 60 Est GFR (Non-Af Amer) > 60 POC Glucose (mg/dL) Random Glucose 156 H Calcium 8.7 Total Bilirubin 0.5 AST 43 H ALT 29 Alkaline Phosphatase 108 Troponin I < 0.0120 NT-Pro-B Natriuret Pep 1490 H Total Protein 7.1 Albumin 3.6 Globulin 3.5 Albumin/Globulin Ratio 1.0 Triglycerides Cholesterol LDL Cholesterol Direct HDL Cholesterol TSH 3rd Generation Influenza Typ A,B (EIA) Negative for flu a/b 01/22/18 01/22/18 01/22/18 15:20 17:28 21:09 WBC 7.1 RBC 3.14 L Hgb 8.3 L Hct 26.6 L MCV 84.6 D MCH 26.4 L MCHC 31.2 L RDW 21.6 H Plt Count 155 MPV 9.5 Neut % (Auto) 62.7 Lymph % (Auto) 27.8 Chaves % (Auto) 6.3 Eos % (Auto) 2.4 Baso % (Auto) 0.8 Neut # (Auto) 4.4 Lymph # (Auto) 2.0 Chaves # (Auto) 0.5 Eos # (Auto) 0.2 Baso # (Auto) 0.1 PT INR APTT Sodium Potassium Chloride Carbon Dioxide Anion Gap BUN Creatinine Est GFR ( Amer) Est GFR (Non-Af Amer) POC Glucose (mg/dL) 101 166 H Random Glucose Calcium Total Bilirubin AST ALT Alkaline Phosphatase Troponin I NT-Pro-B Natriuret Pep Total Protein Albumin Globulin Albumin/Globulin Ratio Triglycerides Cholesterol LDL Cholesterol Direct HDL Cholesterol TSH 3rd Generation Influenza Typ A,B (EIA) 01/22/18 01/23/18 01/23/18 22:48 05:00 05:00 WBC 7.5 RBC 3.05 L Hgb 8.1 L Hct 25.4 L MCV 83.3 MCH 26.5 L MCHC 31.9 L RDW 20.5 H Plt Count 163 MPV 9.3 Neut % (Auto) 59.0 Lymph % (Auto) 31.2 Chaves % (Auto) 6.7 Eos % (Auto) 2.3 Baso % (Auto) 0.8 Neut # (Auto) 4.4 Lymph # (Auto) 2.3 Chaves # (Auto) 0.5 Eos # (Auto) 0.2 Baso # (Auto) 0.1 PT INR APTT Sodium 143 Potassium 3.7 Chloride 98 Carbon Dioxide 29 Anion Gap 20 BUN 15 Creatinine 0.7 Est GFR ( Amer) > 60 Est GFR (Non-Af Amer) > 60 POC Glucose (mg/dL) Random Glucose 116 H Calcium 8.9 Total Bilirubin AST ALT Alkaline Phosphatase Troponin I < 0.0120 NT-Pro-B Natriuret Pep Total Protein Albumin Globulin Albumin/Globulin Ratio Triglycerides 54 Cholesterol 93 LDL Cholesterol Direct 40 HDL Cholesterol 33 TSH 3rd Generation 27.80 H Influenza Typ A,B (EIA) 01/23/18 01/23/18 05:25 06:20 WBC RBC Hgb Hct MCV MCH MCHC RDW Plt Count MPV Neut % (Auto) Lymph % (Auto) Chaves % (Auto) Eos % (Auto) Baso % (Auto) Neut # (Auto) Lymph # (Auto) Chaves # (Auto) Eos # (Auto) Baso # (Auto) PT INR APTT Sodium Potassium Chloride Carbon Dioxide Anion Gap BUN Creatinine Est GFR ( Amer) Est GFR (Non-Af Amer) POC Glucose (mg/dL) 107 Random Glucose Calcium Total Bilirubin AST ALT Alkaline Phosphatase Troponin I < 0.0120 NT-Pro-B Natriuret Pep Total Protein Albumin Globulin Albumin/Globulin Ratio Triglycerides Cholesterol LDL Cholesterol Direct HDL Cholesterol TSH 3rd Generation Influenza Typ A,B (EIA) Assessment & Plan - Date & Time Date: 01/23/18 Time: 09:44
[2018-01-23 10:28] LABS: IRON 38 ug/dL (37-170)
[2018-01-23 10:38] LABS: % IRON SATURATION 11 % (20-55); TOTAL IRON BINDING CAPACITY 364 ug/dL (250-450)
--- NOTE | 2018-01-23 10:45 | CARD ---
APPROVED REPORT EXAM: Two-dimensional and M-mode echocardiogram with Doppler and color Doppler. Other Information Quality : AverageRhythm : Atrial Fibrillation INDICATION Congestive Heart Failure 2D DIMENSIONS IVSd1.16 (0.7-1.1cm)LVDd4.80 (3.9-5.9cm) LVOT Diameter2.26 (1.8-2.4cm)PWd0.93 (0.7-1.1cm) IVSs1.60 (0.8-1.2cm)LVDs3.52 (2.5-4.0cm) FS (%) 26.8 %PWs1.52 (0.8-1.2cm) M-Mode DIMENSIONS Left Atrium (MM)4.84 (2.5-4.0cm)IVSd1.47 (0.7-1.1cm) Aortic Root2.88 (2.2-3.7cm)LVDd4.81 (4.0-5.6cm) Aortic Cusp Exc.1.78 (1.5-2.0cm)PWd1.44 (0.7-1.1cm) IVSs2.19 cmFS (%) 42 % LVDs2.78 (2.0-3.8cm)PWs1.59 cm Mitral Valve E/A ratio0.0 TDI E/Lateral E'0.0E/Medial E'0.0 Pulmonary Valve PV Peak Gjovaupt50.9cm/s LEFT VENTRICLE The left ventricle is normal size. There is normal left ventricular wall thickness. The left ventricular function is normal. The left ventricular ejection fraction is within the normal range. The Ejection Fraction is 65-70%. There is normal LV segmental wall motion. The left ventricular diastolic function is normal. RIGHT VENTRICLE The right ventricle is normal size. The right ventricular systolic function is normal. ATRIA The left atrium size is normal. The right atrium size is normal. AORTIC VALVE The aortic valve is normal in structure. No aortic regurgitation is present. There is no aortic valvular stenosis. MITRAL VALVE Mitral annular calcification is mild. There is no mitral valve stenosis. Mitral regurgitation is trace to mild. TRICUSPID VALVE The tricuspid valve is normal in structure. There is no tricuspid valve regurgitation noted. PULMONIC VALVE The pulmonary valve is normal in structure. There is no pulmonic valvular regurgitation. GREAT VESSELS The aortic root is normal in size. The IVC is normal in size and collapses >50% with inspiration. PERICARDIAL EFFUSION The pericardium appears normal. <Conclusion> The left ventricle is normal size. The left ventricular function is normal. The left ventricular ejection fraction is within the normal range. The Ejection Fraction is 65-70%. Mitral regurgitation is trace to mild.
--- NOTE | 2018-01-23 11:05 | CP.PCM.DIS ---
Provider - Provider Date of Admission: 01/22/18 15:09 Attending physician: Fred Burger MD Consults: Dr Corina Sorto Time Spent in preparation of Discharge (in minutes): 25 Diagnosis - Discharge Diagnosis (1) CHF (congestive heart failure) Status: Acute Comment: CHF exacerbation caused by non-compliance to take diuretics. advised to continue taking Lasix 40mg PO in the morning. ECHO: normal LV function. CHF probably secondary to diastolic dysfunction (2) COPD (chronic obstructive pulmonary disease) Status: Chronic Comment: continue Advair 250/50 1 puff q 12hrs. patient also need her CPAP machine at bedtime because of sleep apnea (3) CAD (coronary artery disease) Status: Chronic Comment: continue ASA, Plavix, Lipitor and Isosorbide Mononitrate (4) Hypertension Status: Chronic Priority: Medium Comment: continue Amlodipine and Losartan (5) Atrial fibrillation Status: Chronic Comment: stable. not on anticoagulant because of history of GI bleed (6) Diabetes mellitus, type II Status: Chronic Priority: High Comment: continue Januvia and Metformin (7) Hypothyroidism Status: Chronic Priority: Medium Comment: TSH is elevated at 27.80. will increased Levothyroxine by 25mcg to 175mcg PO daily Hospital Course - Lab Results Lab Results: Most Recent Lab Values WBC 7.5 K/uL (4.8-10.8) 01/23/18 05:00 RBC 3.05 Mil/uL (3.80-5.20) L 01/23/18 05:00 Hgb 8.1 g/dL (12.0-16.0) L 01/23/18 05:00 Hct 25.4 % (34.0-47.0) L 01/23/18 05:00 MCV 83.3 fl (81.0-99.0) 01/23/18 05:00 MCH 26.5 pg (27.0-31.0) L 01/23/18 05:00 MCHC 31.9 g/dL (33.0-37.0) L 01/23/18 05:00 RDW 20.5 % (11.5-14.5) H 01/23/18 05:00 Plt Count 163 K/uL (130-400) 01/23/18 05:00 MPV 9.3 fl (7.2-11.7) 01/23/18 05:00 Neut % (Auto) 59.0 % (50.0-75.0) 01/23/18 05:00 Lymph % (Auto) 31.2 % (20.0-40.0) 01/23/18 05:00 Holmes % (Auto) 6.7 % (0.0-10.0) 01/23/18 05:00 Eos % (Auto) 2.3 % (0.0-4.0) 01/23/18 05:00 Baso % (Auto) 0.8 % (0.0-2.0) 01/23/18 05:00 Neut # (Auto) 4.4 K/uL (1.8-7.0) 01/23/18 05:00 Lymph # (Auto) 2.3 K/uL (1.0-4.3) 01/23/18 05:00 Holmes # (Auto) 0.5 K/uL (0.0-0.8) 01/23/18 05:00 Eos # (Auto) 0.2 K/uL (0.0-0.7) 01/23/18 05:00 Baso # (Auto) 0.1 K/uL (0.0-0.2) 01/23/18 05:00 PT 13.4 Seconds (9.8-13.1) H 01/22/18 14:20 INR 1.2 (0.9-1.2) 01/22/18 14:20 APTT 33.5 Seconds (25.6-37.1) 01/22/18 14:20 Sodium 143 mmol/l (132-148) 01/23/18 05:00 Potassium 3.7 MMOL/L (3.6-5.0) 01/23/18 05:00 Chloride 98 mmol/L (98-107) 01/23/18 05:00 Carbon Dioxide 29 mmol/L (22-30) 01/23/18 05:00 Anion Gap 20 (10-20) 01/23/18 05:00 BUN 15 mg/dl (7-17) 01/23/18 05:00 Creatinine 0.7 mg/dl (0.7-1.2) 01/23/18 05:00 Est GFR ( Amer) > 60 01/23/18 05:00 Est GFR (Non-Af Amer) > 60 01/23/18 05:00 POC Glucose (mg/dL) 107 mg/dL (65-110) 01/23/18 05:25 Random Glucose 116 mg/dL (65-105) H 01/23/18 05:00 Calcium 8.9 mg/dL (8.4-10.2) 01/23/18 05:00 Iron 38 ug/dL (37-170) 01/23/18 10:12 TIBC 364 ug/dL (250-450) 01/23/18 10:12 % Saturation 11 % (20-55) L 01/23/18 10:12 Total Bilirubin 0.5 mg/dl (0.2-1.3) 01/22/18 14:20 AST 43 U/L (14-36) H 01/22/18 14:20 ALT 29 U/L (9-52) 01/22/18 14:20 Alkaline Phosphatase 108 U/L (38-126) 01/22/18 14:20 Troponin I < 0.0120 ng/mL (0.00-0.120) 01/23/18 06:20 NT-Pro-B Natriuret Pep 1490 pg/ml (0-900) H 01/22/18 14:20 Total Protein 7.1 G/DL (6.3-8.2) 01/22/18 14:20 Albumin 3.6 g/dL (3.5-5.0) 01/22/18 14:20 Globulin 3.5 gm/dL (2.2-3.9) 01/22/18 14:20 Albumin/Globulin Ratio 1.0 (1.0-2.1) 01/22/18 14:20 Triglycerides 54 mg/DL (0-149) 01/23/18 05:00 Cholesterol 93 mg/dL (0-199) 01/23/18 05:00 LDL Cholesterol Direct 40 mg/dL (0-129) 01/23/18 05:00 HDL Cholesterol 33 MG/DL (30-70) 01/23/18 05:00 TSH 3rd Generation 27.80 mIU/ML (0.46-4.68) H 01/23/18 05:00 Influenza Typ A,B (EIA) Negative for flu a/b (NEGATIVE) 01/22/18 13:50 - Hospital Course Hospital Course: 87 yo female with history of CAD, HTN, AFib, CHF, DM2, COPD and Hypothyroidism brought by family because of worsening dyspnea since yesterday. Patient denied chest pain, nausea or vomiting. Patient claimed she was taking water pills but discontinued it because it was making her urinate too often. Patient was put back on Lasix and she diuresed. Her condition improved and she admitted able to breath much, much better. Serial Troponins were negative for ischemic events. Patient was discharged in stable and improved condition and was advised not to stopped the diuretics and to follow with her PCP in a week. Both pulmonology and cardiology consults agreed to discharge patient. Discharge Exam - Head Exam Head Exam: ATRAUMATIC - Eye Exam Eye Exam: absent: Scleral icterus - ENT Exam ENT Exam: Mucous Membranes Moist - Respiratory Exam Respiratory Exam: absent: Rales, Rhonchi, Wheezes, Respiratory Distress - Cardiovascular Exam Cardiovascular Exam: Irregular Rhythm - GI/Abdominal Exam GI & Abdominal Exam: Soft. absent: Tenderness - Rectal Exam Rectal Exam: Deferred - Neurological Exam Neurological exam: Alert, Oriented x3 - Psychiatric Exam Psychiatric exam: Normal Affect - Skin Skin Exam: Dry, Intact Discharge Plan - Discharge Medications Prescriptions: Furosemide [Lasix] 40 mg PO DAILY #30 tab Levothyroxine [Synthroid] 175 mcg PO DAILY@0630 #30 tab - Follow Up Plan Condition: GOOD Disposition: HOME/ ROUTINE Instructions: Heart Failure, Adult (DC) Referrals: Nato Arriaga MD [Staff Provider] - Hemant Sorto MD [Staff Provider] -
[2018-01-23 12:30] VITALS: BP 132/76; PULSE 87; RESP 18; TEMP 98.6
[2018-01-24] MEDS ORDERED: Levothyroxine 175 MCG TAB PO SCH (06:30)
[2018-01-25 23:42] VITALS: O2SAT 100
== END 2018-01-23 14:41 | disposition home or self-care (01) ==
LOC: H.ER 12:05 → OBSVTOIN 15:09 → INTOOBSV 15:09 → H.ERHOLD 15:09 → H.TEL 16:45
DX: I11.0 Hypertensive heart disease with heart failure (principal); I50.9 Heart failure, unspecified; E03.9 Hypothyroidism, unspecified; E11.9 Type 2 diabetes mellitus without complications; E78.00 Pure hypercholesterolemia, unspecified; E78.5 Hyperlipidemia, unspecified; G47.30 Sleep apnea, unspecified; J44.9 Chronic obstructive pulmonary disease, unspecified; I25.10 Atherosclerotic heart disease of native coronary artery without angina pectoris; I48.2 Chronic atrial fibrillation; Z87.891 Personal history of nicotine dependence; Z91.14 Patient's other noncompliance with medication regimen; M19.90 Unspecified osteoarthritis, unspecified site; Z98.61 Coronary angioplasty status
CPT/HCPCS: 36415; 71045; 80048; 80053; 80061; 82728; 82948; 83036; 83540; 83550; 83880; 84443; 84484; 85025; 85610; 85730; 87040; 87149; 87804; 93005; 93306; 99285; G0378; J1940

== ENCOUNTER 2018-02-19 14:12 | Inpatient (IN) | payer MEDICARE, MEDICAID ==
[2018-02-19 14:27] VITALS: BMI 30.7
--- NOTE | 2018-02-19 15:56 | ED PDOC ---
HPI: General Adult <Kb Cárdenas - Last Filed: 02/19/18 16:47> Chief Complaint (Provider): "her hemoglobin is low" History Per: Patient, Family History/Exam Limitations: no limitations <Deion Fitzgerald - Last Filed: 02/19/18 17:50> Chief Complaint (Nursing): Abnormal Labs Additional Complaint(s): 87 y/o female, hx of anemia, CHF, afib, suspected gastric ulcer, and NIDDM2 presents for evaluation of abnormal labs. Pt was being followed up by her PMD last week, whom ordered routine labs. CBC found a Hb of 5.7. Pt reports feeling more fatigued recently but denies any CP/palpitations. No chest pain. Reports chronic SOB w/o acute change. Family reports chronic melena secondary to suspected gastric ulcer. Pt currently on Eliquis 5mg for Afib. No headaches, no changes in vision, N/V/D/C, hematemesis, hematochezia, urinary symptoms, numbness/tingling. PMD: Rodriguez Cardio: Ayan (Deion Fitzgerald) Past Medical History <Kb Cárdenas - Last Filed: 02/19/18 16:47> Reviewed: Historical Data, Nursing Documentation, Vital Signs - Medical History PMH: Arthritis, Asthma, Atrial Fibrillation, Bronchitis, CAD (Questionable), CHF , COPD, Depression, Diabetes (type II), Diverticulitis, HTN, Hypercholesterolemia, Hyperthyroidism, Hypothyroidism, Pneumonia, Sleep Apnea Denies: HIV, Chronic Kidney Disease - Surgical History Surgical History: Back Surgery, Cholecystectomy Denies: CABG - Family History Family History: States: Unknown Family Hx, Hypertension - Immunization History Hx Tetanus Toxoid Vaccination: No Hx Influenza Vaccination: No Hx Pneumococcal Vaccination: No <Deion Fitzgerald - Last Filed: 02/19/18 17:50> Vital Signs: Last Vital Signs Temp 97 F L 02/19/18 14:25 Pulse 93 H 02/19/18 14:25 Resp BP 115/64 02/19/18 14:25 Pulse Ox 100 02/19/18 16:15 - Home Medications Home Medications: Ambulatory Orders Medication Instructions Recorded Aspirin [Ecotrin] 81 mg PO DAILY #30 tabec 11/04/17 Olopatadine HCl [Pazeo] 1 drop EACHEYE DAILY #1 bottle 11/04/17 Losartan [Cozaar] 100 mg PO DAILY 01/22/18 Nitroglycerin [Nitrostat] 0.4 mg SL Q5MIN PRN 01/22/18 Pregabalin [Lyrica] 75 mg PO Q12 01/22/18 Sitagliptin Phos/Metformin HCl 1 tab PO QPM 01/22/18 [Janumet Xr 100-1,000 mg Tablet] Furosemide [Lasix] 40 mg PO DAILY #30 tab 01/23/18 Apixaban [Eliquis] 5 mg PO Q12 02/19/18 Atorvastatin [Lipitor] 40 mg PO QPM 02/19/18 Fluticasone/Vilanterol [Breo 1 puff IH DAILY 02/19/18 Ellipta 200-25 Mcg INH] Levothyroxine [Synthroid] 175 mcg PO DAILY 02/19/18 Omeprazole 20 mg PO QPM 02/19/18 Potassium Chloride [K-Dur 20 mEq 20 meq PO QPM 02/19/18 ER Tab] - Allergies Allergies/Adverse Reactions: Allergies Allergy/AdvReac Type Severity Reaction Status Date / Time No Known Allergies Allergy Verified 01/22/18 12:12 Review of Systems Constitutional: Positive for: Weakness. Negative for: Fever, Chills, Sweats, Malaise, Weight loss Eyes: Negative for: Vision Change Cardiovascular: Positive for: Light Headedness. Negative for: Chest Pain, Palpitations, Orthopnea, Paroxysmal Noc. Dyspnea, Edema Respiratory: Negative for: Cough, Shortness of Breath, Hemoptysis, SOB with Exertion, Pleuritic Pain, Sputum, Wheezing Gastrointestinal: Positive for: Melena. Negative for: Nausea, Vomiting, Abdominal Pain, Diarrhea, Constipation, Hematochezia, Hematemesis Genitourinary Female: Negative for: Dysuria, Frequency, Incontinence, Hematuria Neurological: Negative for: Weakness, Numbness, Incoordination, Change in Speech , Confusion, Altered Mental Status, Headache, Dizziness Psych: Negative for: Anxiety, Depression <Deion Fitzgerald - Last Filed: 02/19/18 17:50> Physical Exam - Reviewed Nursing Documentation Reviewed: Yes Vital Signs Reviewed: Yes - Physical Exam Appears: Positive for: Non-toxic, No Acute Distress Head Exam: Positive for: ATRAUMATIC, NORMAL INSPECTION, NORMOCEPHALIC Skin: Positive for: Warm, Dry, Pallor (subconjuctival pallor ). Negative for: Diaphoresis, Cyanosis Eye Exam: Positive for: Normal appearance, EOMI, PERRL. Negative for: Conjunctival injection, Scleral icterus Neck: Positive for: Painless ROM, Supple Cardiovascular/Chest: Positive for: Chest Non Tender, Irregularly Irregular. Negative for: Edema, JVD, Murmur, Bradycardia, Tachycardia Respiratory: Positive for: Normal Breath Sounds. Negative for: Decreased Breath Sounds, Accessory Muscle Use, Crackles, Rales, Rhonchi, Wheezing Pulses-Radial (L): 2+ Pulses-Radial (R): 2+ Gastrointestinal/Abdominal: Positive for: Bowel Sounds (normal ), Soft. Negative for: Tenderness, Organomegaly, Mass, Distended, Guarding Extremity: Positive for: Pedal Edema (1+), Capillary Refill (<2s). Negative for : Tenderness, Calf Tenderness Lymphatic: Negative for: Adenopathy Neurologic/Psych: Positive for: Alert, crop research scientist II-XII, Oriented <Deion Fitzgerald - Last Filed: 02/19/18 17:50> - Laboratory Results Result Diagrams: 02/19/18 16:18 02/19/18 16:18 <Kb Cárdenas - Last Filed: 02/19/18 16:47> - Laboratory Results Result Diagrams: 02/19/18 16:18 02/19/18 16:18 - ECG O2 Sat by Pulse Oximetry: 100 <Deion Fitzgerald - Last Filed: 02/19/18 17:50> - Progress ED Course And Treament: anemia/upper GI bleed CBC BMP Type and Cross Occult blood EKG Cardiac monitoring CXR Protonix Normal saline (Deion Fitzgerald) Disposition <Kb Cárdenas - Last Filed: 02/19/18 16:47> - Patient ED Disposition Is Patient to be Admitted: Yes - Disposition Disposition Time: 17:49 - Pt Status Changed To: Hospital Disposition Of: Inpatient - Admit Certification Admit to Inpatient:: After my assessment, the patient will require hospitalization for at least two midnights. This is because of the severity of symptoms shown, intensity of services needed, and/or the medical risk in this patient being treated as an outpatient. <Deion Fitzgerald - Last Filed: 02/19/18 17:50> - Clinical Impression Clinical Impression: Anemia, Melena - Disposition Condition: STABLE - PA / STATIONS SUPERINTENDENT / Resident Statement /DO has reviewed & agrees with the documentation as recorded. / has examined the patient and agrees with the treatment plan. <Kb Cárdenas F - Last Filed: 02/19/18 16:47>
[2018-02-19] MEDS ORDERED: Sodium Chloride 0.9% 1,000 ML IV STA (15:58)
[2018-02-19 16:30] LABS: MEAN CELL VOLUME 80.7 fl (81.0-99.0); MEAN CORPUSCULAR HEMOGLOBIN 24.9 pg (27.0-31.0); MEAN CORPUSCULAR HGB CONC 30.8 g/dL (33.0-37.0); RBC 2.17 Mil/uL (3.80-5.20); WHITE BLOOD COUNT 7.5 K/uL (4.8-10.8)
[2018-02-19 16:38] LABS: BLOOD UREA NITROGEN 16 mg/dl (7-17); CALCIUM 8.4 mg/dL (8.4-10.2); GFR AFRICAN-AMERICAN > 60; GFR NON-AFRICAN AMERICAN > 60
[2018-02-19 16:39] LABS: HEMOGLOBIN 5.4 g/dL (12.0-16.0)
[2018-02-19] MEDS: Pantoprazole 40 MG in Sodium Chloride 0.9% 100 ML IVPB SCH ×2 (17:37→23:00)
--- NOTE | 2018-02-19 17:53 | RAD ---
HISTORY: cough COMPARISON: 01/22/2018. FINDINGS: LUNGS: No active pulmonary disease. PLEURA: No significant pleural effusion identified, no pneumothorax apparent. CARDIOVASCULAR: Cardiomegaly. No evidence of acute, significant cardiovascular disease. OSSEOUS STRUCTURES: No significant abnormalities. VISUALIZED UPPER ABDOMEN: Normal. OTHER FINDINGS: None. IMPRESSION: No active disease. No significant interval change compared to the prior examination(s).
--- NOTE | 2018-02-19 18:44 | CP.PCM.HP ---
History of Present Illness - History of Present Illness History of Present Illness: CC: Black stools This is an 87 year old femaale with a past medical history significant for coronary artery disease, essential hypertension, atrial fibrillation (was on Eliquis starting 1 month ago), congestive heart failure, type 2 DM, COPD, diverticulitis, sleep apnea, and hypothyroidism, who presents to the ED after c/ o black, tarry stool since at least one day. The patient states it may have been longer but she cannot remember. She was sent here from her PMD office, Dr. Frias, for hemolobin level of 5.7. In the ED, she was found to be hemodynamically stable although very weak. She was found to have Hg of 5.4 here ; on 01/23 on last admission it was 8.1. According to the chart she was supposed to have GI follow up but did not follow up after discharge. Other than weakness currently, she has no complaints. She is being transfused 2 units and I asked ED to call Dr. Calvert, at risk paraprofessional specimen technician, for further evaluation. She is to be admitted to telemetry for further workup. Patient denies chest pain , shortness of breath, fevers, chills, nausea, vomiting, diarrhea, headache. All of the patient's and family's questions were answered at the bedside. Present on Admission - Present on Admission Any Indicators Present on Admission: No Review of Systems - Review of Systems Review of Systems: A 12 point review of systems was conducted and found to be negative other than what was mentioned in the HPI. Past Patient History - Infectious Disease Hx of Infectious Diseases: None - Past Medical History & Family History Past Medical History?: Yes - Past Social History Smoking Status: Former Smoker - CARDIAC Hx Atrial Fibrillation: Yes Hx Congestive Heart Failure: Yes Hx Hypercholesterolemia: Yes Hx Hypertension: Yes - PULMONARY Hx Asthma: Yes Hx Bronchitis: Yes Hx Chronic Obstructive Pulmonary Disease (COPD): Yes Hx Pneumonia: Yes Hx Sleep Apnea: Yes - NEUROLOGICAL Hx Neurological Disorder: No - HEENT Hx HEENT Problems: No - RENAL Hx Chronic Kidney Disease: No - ENDOCRINE/METABOLIC Hx Hyperthyroidism: Yes Hx Hypothyroidism: Yes - HEMATOLOGICAL/ONCOLOGICAL Hx Human Immunodeficiency Virus (HIV): No - INTEGUMENTARY Hx Dermatological Problems: No - MUSCULOSKELETAL/RHEUMATOLOGICAL Hx Arthritis: Yes - GASTROINTESTINAL Hx Diverticulitis: Yes - GENITOURINARY/GYNECOLOGICAL Hx Genitourinary Disorders: No - PSYCHIATRIC Hx Depression: Yes - SURGICAL HISTORY Hx Cholecystectomy: Yes Hx Coronary Artery Bypass Graft: No - ANESTHESIA Hx Anesthesia: Yes Hx Anesthesia Reactions: No Hx Malignant Hyperthermia: No Meds Allergies/Adverse Reactions: Allergies Allergy/AdvReac Type Severity Reaction Status Date / Time No Known Allergies Allergy Verified 01/22/18 12:12 Physical Exam - Additional Findings Additional findings: Physical exam: Constitutional- cooperative, awake, alert Head- NCAT, PERRL Eye- PERRL, EOMI ENT- normal exam, MMM. Neck- normal inspection, supple, no JVD Respiratory- CTAB, no wheezes rales rhonchi Cardiovascular- RRR, +S1, +S2 no MRG GI/Abdominal- protuberant but not distended. normal bowel sounds, soft, no mass , no hsm Skin- warm, dry, pale appearing Extremities Exam- normal capillary refill, normal inspection Neurological Exam- alert, awake, oriented Psych- normal mood, normal affect Results - Vital Signs Recent Vital Signs: Last Vital Signs Temp 97 F L 02/19/18 14:25 Pulse 93 H 02/19/18 14:25 Resp BP 115/64 02/19/18 14:25 Pulse Ox 100 02/19/18 17:50 - Labs Result Diagrams: 02/19/18 16:18 02/19/18 16:18 Labs: Laboratory Results - last 24 hr 02/19/18 02/19/18 02/19/18 16:18 16:18 16:18 WBC 7.5 RBC 2.17 L Hgb 5.4 L* D Hct 17.5 L MCV 80.7 L D MCH 24.9 L MCHC 30.8 L RDW 18.0 H Plt Count 208 Sodium 141 Potassium 3.9 Chloride 101 Carbon Dioxide 27 Anion Gap 17 BUN 16 Creatinine 0.5 L Est GFR ( Amer) > 60 Est GFR (Non-Af Amer) > 60 Random Glucose 127 H Calcium 8.4 Blood Type O NEGATIVE BBK History Checked Patient has bt Assessment & Plan - Assessment and Plan (Free Text) Plan: ASSESSMENT/PLAN This is an 87 year old female with a past medical history significant for coronary artery disease, essential hypertension, atrial fibrillation (was on Eliquis starting 1 month ago), congestive heart failure, type 2 DM, COPD, diverticulitis, sleep apnea, and hypothyroidism, who is being admitted to telemetry for upper GI bleed. (1) Acute GI bleed with melena, likely upper GI bleed, suspect gastric vs duodenal ulcer bleed, with acute blood loss / iron deficiency anemia - Admit to telemetry - NPO status - Consultation with Dr. Calvert, called from ED - To be transfused 2 units PRBC - hemodynamically stable at the present time - Protonix drip - Reglan 10 mg IVP q8h PRN N/V (1) Diastolic chronic CHF (congestive heart failure), without exacerbation Status: Acute continue taking Lasix 40mg PO in the morning once diet advanced. ECHO: normal LV function on previous admission. (2) COPD (chronic obstructive pulmonary disease) Status: Chronic, at baseline Comment: continue home COPD medications patient also need her CPAP machine at bedtime because of sleep apnea (3) CAD (coronary artery disease) Status: Chronic Comment: Continue nitrate and Lipitor Holding ASA and Eliquis due to GI bleed (4) Hypertension Status: Chronic Priority: Medium Comment: continue Amlodipine and Losartan when diet advanced (5) Atrial fibrillation Status: Chronic Comment: stable. not on anticoagulant because of GI bleed Continue (6) Diabetes mellitus, type II Status: Chronic Priority: High Insuline sliding scale. hold metformin (7) Hypothyroidism Status: Chronic Priority: Medium Comment: will continue Levothyroxine 175mcg PO daily (8) DVT prophylaxis - SCDs
[2018-02-19 19:38] LABS: PARTIAL THROMBOPLASTIN TIME 34.1 Seconds (25.6-37.1); PROTHROMBIN TIME 21.9 Seconds (9.8-13.1)
[2018-02-19 22:50] LABS: MEAN CELL VOLUME 81.1 fl (81.0-99.0); MEAN CORPUSCULAR HEMOGLOBIN 24.7 pg (27.0-31.0); MEAN CORPUSCULAR HGB CONC 30.5 g/dL (33.0-37.0); RBC 2.16 Mil/uL (3.80-5.20); RED CELL DISTRIBUTION WIDTH 18.2 % (11.5-14.5)
[2018-02-19 23:00] LABS: HEMOGLOBIN 5.3 g/dL (12.0-16.0)
--- NOTE | 2018-02-19 23:06 | CP.PCM.CON ---
History of Present Illness - History of Present Illness History of Present Illness: 87 yo female with h/o A fib and on Eliquis, admitted for weakness and anemia. Patient has noticed black stools for the past 2 weeks Review of Systems - Constitutional Constitutional: absent: Chills - EENT Eyes: absent: Other Visual Disturbances Nose/Mouth/Throat: absent: Epistaxis - Cardiovascular Cardiovascular: absent: Chest Pain - Respiratory Respiratory: absent: Cough - Gastrointestinal Gastrointestinal: absent: Abdominal Pain - Musculoskeletal Musculoskeletal: absent: Arthralgias Past Patient History - Infectious Disease Hx of Infectious Diseases: None - Past Medical History & Family History Past Medical History?: Yes - Past Social History Smoking Status: Former Smoker - CARDIAC Hx Atrial Fibrillation: Yes Hx Congestive Heart Failure: Yes Hx Hypercholesterolemia: Yes Hx Hypertension: Yes - PULMONARY Hx Asthma: Yes Hx Bronchitis: Yes Hx Chronic Obstructive Pulmonary Disease (COPD): Yes Hx Pneumonia: Yes Hx Sleep Apnea: Yes - NEUROLOGICAL Hx Neurological Disorder: No - HEENT Hx HEENT Problems: No - RENAL Hx Chronic Kidney Disease: No - ENDOCRINE/METABOLIC Hx Hyperthyroidism: Yes Hx Hypothyroidism: Yes - HEMATOLOGICAL/ONCOLOGICAL Hx Human Immunodeficiency Virus (HIV): No - INTEGUMENTARY Hx Dermatological Problems: No - MUSCULOSKELETAL/RHEUMATOLOGICAL Hx Arthritis: Yes Hx Falls: Yes (per pt "many years ago") - GASTROINTESTINAL Hx Diverticulitis: Yes - GENITOURINARY/GYNECOLOGICAL Hx Genitourinary Disorders: No - PSYCHIATRIC Hx Depression: Yes - SURGICAL HISTORY Hx Cholecystectomy: Yes Hx Coronary Artery Bypass Graft: No - ANESTHESIA Hx Anesthesia: Yes Hx Anesthesia Reactions: No Hx Malignant Hyperthermia: No Meds Allergies/Adverse Reactions: Allergies Allergy/AdvReac Type Severity Reaction Status Date / Time No Known Allergies Allergy Verified 01/22/18 12:12 - Medications Medications: Current Medications Atorvastatin Calcium (Lipitor) 40 mg PO QPM JOSE A Furosemide (Lasix) 40 mg PO DAILY JOSE A Home Med (Fluticasone/Vilanterol [Breo Ellipta 200-25 Mcg Inh]) 1 puff IH DAILY JOSE A Home Med (Olopatadine Hcl [Pazeo]) 1 drop EACHEYE DAILY JOSE A Sodium Chloride (Sodium Chloride 0.9%) 1,000 mls @ 100 mls/hr IV .Q10H STA Stop: 02/20/18 01:57 Last Admin: 02/19/18 16:39 Dose: 100 mls/hr Pantoprazole Sodium 40 mg/ (Sodium Chloride) 100 mls @ 20 mls/hr IVPB Q5H JOSE A PRN Reason: 8 MG/HR Last Admin: 02/19/18 17:37 Dose: 20 mls/hr Levothyroxine Sodium (Synthroid) 175 mcg PO DAILY@0630 [facility] Losartan Potassium (Cozaar) 100 mg PO DAILY [facility] Metoclopramide HCl (Reglan) 10 mg IVP Q6 PRN PRN Reason: Nausea/Vomiting Nitroglycerin (Nitrostat Sl Tab) 0.4 mg SL Q5MIN PRN PRN Reason: Chest pain Potassium Chloride (K-Dur 20 Meq Er Tab) 20 meq PO QPM [facility] Pregabalin (Lyrica) 75 mg PO Q12 [facility] Last Admin: 02/19/18 21:42 Dose: 75 mg Physical Exam - Constitutional Appears: No Acute Distress - Head Exam Head Exam: ATRAUMATIC - Eye Exam Eye Exam: Normal appearance, PERRL - Respiratory Exam Respiratory Exam: NORMAL BREATHING PATTERN - Cardiovascular Exam Cardiovascular Exam: REGULAR RHYTHM, +S1, +S2 - GI/Abdominal Exam GI & Abdominal Exam: Normal Bowel Sounds, Soft. absent: Tenderness Results - Vital Signs Recent Vital Signs: Last Vital Signs Temp 98 F 02/19/18 19:26 Pulse 91 H 02/19/18 20:00 Resp 18 02/19/18 20:00 BP 112/53 L 02/19/18 20:00 Pulse Ox 100 02/19/18 20:00 - Labs Result Diagrams: 02/19/18 22:01 02/19/18 16:18 Labs: Laboratory Results - last 24 hr 02/19/18 02/19/18 02/19/18 16:18 16:18 16:18 WBC 7.5 RBC 2.17 L Hgb 5.4 L* D Hct 17.5 L MCV 80.7 L D MCH 24.9 L MCHC 30.8 L RDW 18.0 H Plt Count 208 PT INR APTT Sodium 141 Potassium 3.9 Chloride 101 Carbon Dioxide 27 Anion Gap 17 BUN 16 Creatinine 0.5 L Est GFR ( Amer) > 60 Est GFR (Non-Af Amer) > 60 Random Glucose 127 H Calcium 8.4 Blood Type O NEGATIVE Antibody Screen Positive Antibody Identification Anti D Crossmatch See Detail BBK History Checked Patient has bt 02/19/18 02/19/18 19:00 22:01 WBC 8.0 RBC 2.16 L Hgb 5.3 L* Hct 17.5 L MCV 81.1 MCH 24.7 L MCHC 30.5 L RDW 18.2 H Plt Count 207 PT 21.9 H INR 2.0 H APTT 34.1 Sodium Potassium Chloride Carbon Dioxide Anion Gap BUN Creatinine Est GFR ( Amer) Est GFR (Non-Af Amer) Random Glucose Calcium Blood Type Antibody Screen Antibody Identification Crossmatch BBK History Checked Assessment & Plan (1) Anemia Assessment and Plan: Subacute GI bleed associated with melena. Most likely upper GI source. Transfuse 2 units PRBC. Upper endoscopy after tranfusions. Hold Eliquis. IV protonix. Status: Chronic Priority: Low
[2018-02-20] MEDS: Pantoprazole 40 MG in Sodium Chloride 0.9% 100 ML IVPB SCH ×2 (03:57→08:54)
[2018-02-20] MEDS: Levothyroxine 175 MCG TAB PO SCH (06:29)
[2018-02-20 08:44] LABS: HEMOGLOBIN 7.3 g/dL (12.0-16.0); MEAN CELL VOLUME 82.5 fl (81.0-99.0); MEAN CORPUSCULAR HEMOGLOBIN 26.2 pg (27.0-31.0); MEAN CORPUSCULAR HGB CONC 31.8 g/dL (33.0-37.0); RBC 2.8 Mil/uL (3.80-5.20); RED CELL DISTRIBUTION WIDTH 17.3 % (11.5-14.5); WHITE BLOOD COUNT 8.3 K/uL (4.8-10.8)
[2018-02-20 08:56] LABS: BLOOD UREA NITROGEN 13 mg/dl (7-17); GFR AFRICAN-AMERICAN > 60; GFR NON-AFRICAN AMERICAN > 60
[2018-02-20] MEDS ORDERED: Sodium Chloride 0.9% 1,000 ML IV ONE (09:34)
[2018-02-20] MEDS ORDERED: EPINEPHrine 1 mg/ml (1:1000) Inj ONE (09:37)
[2018-02-20] MEDS ORDERED: Etomidate 20 mg/10ml Inj IV ONE (09:45)
[2018-02-20] MEDS ORDERED: Propofol 10 mg/ml Inj (20 ML) ONE (09:45)
--- NOTE | 2018-02-20 09:55 | CP.CCUPN ---
CCU Subjective - Physician Review Subjective (Free Text): Awake and alert, feels hungry, remains NPO for endoscopy today. Denies any dizziness, or new weakness; completed infusion of 2 units PRBCs. Other VS and I/Os reviewed. He is neg 0.36 L fluid balance. ROS: No other pertinent negs or positives on 10+ system review obtainable due to present sedation and intubated state. PMSFH: All other Nursing and physician documentation reviewed to date; no new pertinent info noted relevant to current medical problems. EXAM- HEENT: no icterus, no gaze preference, pupils 3 mm equal and sluggishly reactive , no icterus NECK: No JVD, supple, carotids equal upstroke bilat/no bruits CHEST: decreased BS bases, no wheezes audible HEART: regular distant, S1S2, no rubs. ABD: soft, no distention, no tympany, no palp tenderness, BS hypoactive. EXT: trace edema / anasarca bilat. No peripheral/ digital cyanosis, no calf tenderness or palpable cords, distal pulses intact and symmetrical. NEURO: no gross focal motor deficits SKIN: no rashes, warm and dry. LABS: WBC= 8.3 HGB= 5.3 to 7.3 after 2 PRBC units PLTs= 197 K Na= 141 K= 3.9 HCO3= 28 CL= 101 BUN/Cr= 13/0.6 BS= 128 INR 2.0 IMPRESSION / MAJOR PROBLEMS NOW: 1. Acute on Chronic Disease Anemia 2; GI Blood loss, r/o UGIB 2. Chronic A fib on AC with Eliquis 3. h/o CHF with DDysfx, not decompensated now, even after PRBCs. PLAN: 1. Would check repeat INR / coags after PRBCs today. 2. For GI endoscopy today. 3. On PPi infusion. 4. Mild tachycardia, but no hypotension with current / recent GIB. 5. Microcytic indices noted, check Fe studies or start on Iron therapy. CCU Objective - Vital Signs / Intake & Output Vital Signs (Last 4 hours): Vital Signs Temp Pulse Resp BP Pulse Ox 02/20/18 09:39 98.4 F 93 H 16 128/58 L 94 L 02/20/18 08:00 98.8 F 93 H 23 105/71 92 L 02/20/18 06:00 101 H 15 114/58 L 91 L Intake and Output (Last 8hrs): Intake & Output 02/19/18 02/20/18 02/20/18 22:59 06:59 14:59 Intake Total 100 1250 130 Output Total 600 400 150 Balance -500 850 -20 Weight 185 lb Intake: IV 100 300 80 Intake, Piggyback 180 Oral 120 0 Blood Product 650 50 Output: Urine 600 400 150 Urine, Voided 600 400 150 Other: # Voids Urine, Voided 1 1 - Medications Active Medications: Active Medications Generic Name Dose Route Start Last Admin Trade Name Freq PRN Reason Stop Dose Admin Atorvastatin Calcium 40 mg 02/20/18 18:00 Lipitor PO QPM JOSE A Furosemide 40 mg 02/20/18 09:00 Lasix PO DAILY [facility] Pantoprazole Sodium 40 mg/ 100 mls @ 20 mls/hr 02/19/18 16:00 02/20/18 08:54 Sodium Chloride IVPB 20 mls/hr Q5H JOSE A Administration 8 MG/HR Levothyroxine Sodium 175 mcg 02/20/18 06:30 02/20/18 06:29 Synthroid PO Not Given DAILY@0630 [facility] Losartan Potassium 100 mg 02/20/18 09:00 Cozaar PO DAILY [facility] Nitroglycerin 0.4 mg 02/19/18 18:08 Nitrostat Sl Tab SL Q5MIN PRN Chest pain Olopatadine HCl 1 drop 02/20/18 09:00 Patanol 0.1% Opht Soln OU DAILY [facility] Ondansetron HCl 4 mg 02/20/18 03:49 02/20/18 03:54 Zofran Inj IVP 4 mg Q4 PRN Administration Nausea/Vomiting Potassium Chloride 20 meq 02/20/18 18:00 K-Dur 20 Meq Er Tab PO QPM JOSE A Pregabalin 75 mg 02/19/18 21:00 02/19/18 21:42 Lyrica PO 75 mg Q12 JOSE A Administration Fluticasone/Salmeterol 1 puff 02/20/18 09:00 Advair Diskus 250/50 IH Q12 JOSE A - Patient Studies Lab Studies: Lab Studies 02/20/18 02/20/18 02/20/18 Range/Units 08:34 08:34 05:34 WBC 8.3 (4.8-10.8) K/uL RBC 2.80 L (3.80-5.20) Mil/uL Hgb 7.3 L D (12.0-16.0) g/dL Hct 23.1 L (34.0-47.0) % MCV 82.5 (81.0-99.0) fl MCH 26.2 L (27.0-31.0) pg MCHC 31.8 L (33.0-37.0) g/dL RDW 17.3 H (11.5-14.5) % Plt Count 197 (130-400) K/uL PT (9.8-13.1) Seconds INR (0.9-1.2) APTT (25.6-37.1) Seconds Sodium 141 (132-148) mmol/l Potassium 3.9 (3.6-5.0) MMOL/L Chloride 101 (98-107) mmol/L Carbon Dioxide 28 (22-30) mmol/L Anion Gap 16 (10-20) BUN 13 (7-17) mg/dl Creatinine 0.6 L (0.7-1.2) mg/dl Est GFR ( Amer) > 60 Est GFR (Non-Af Amer) > 60 POC Glucose (mg/dL) 125 H (65-110) mg/dL Random Glucose 128 H (65-105) mg/dL Calcium 8.0 L (8.4-10.2) mg/dL Blood Type Antibody Screen Antibody Identification Crossmatch BBK History Checked 02/19/18 02/19/18 02/19/18 Range/Units 22:01 19:00 16:18 WBC 8.0 (4.8-10.8) K/uL RBC 2.16 L (3.80-5.20) Mil/uL Hgb 5.3 L* (12.0-16.0) g/dL Hct 17.5 L (34.0-47.0) % MCV 81.1 (81.0-99.0) fl MCH 24.7 L (27.0-31.0) pg MCHC 30.5 L (33.0-37.0) g/dL RDW 18.2 H (11.5-14.5) % Plt Count 207 (130-400) K/uL PT 21.9 H (9.8-13.1) Seconds INR 2.0 H (0.9-1.2) APTT 34.1 (25.6-37.1) Seconds Sodium (132-148) mmol/l Potassium (3.6-5.0) MMOL/L Chloride (98-107) mmol/L Carbon Dioxide (22-30) mmol/L Anion Gap (10-20) BUN (7-17) mg/dl Creatinine (0.7-1.2) mg/dl Est GFR ( Amer) Est GFR (Non-Af Amer) POC Glucose (mg/dL) (65-110) mg/dL Random Glucose (65-105) mg/dL Calcium (8.4-10.2) mg/dL Blood Type O NEGATIVE Antibody Screen Positive Antibody Identification Anti K Crossmatch See Detail BBK History Checked Patient has bt 02/19/18 02/19/18 Range/Units 16:18 16:18 WBC 7.5 (4.8-10.8) K/uL RBC 2.17 L (3.80-5.20) Mil/uL Hgb 5.4 L* D (12.0-16.0) g/dL Hct 17.5 L (34.0-47.0) % MCV 80.7 L D (81.0-99.0) fl MCH 24.9 L (27.0-31.0) pg MCHC 30.8 L (33.0-37.0) g/dL RDW 18.0 H (11.5-14.5) % Plt Count 208 (130-400) K/uL PT (9.8-13.1) Seconds INR (0.9-1.2) APTT (25.6-37.1) Seconds Sodium 141 (132-148) mmol/l Potassium 3.9 (3.6-5.0) MMOL/L Chloride 101 (98-107) mmol/L Carbon Dioxide 27 (22-30) mmol/L Anion Gap 17 (10-20) BUN 16 (7-17) mg/dl Creatinine 0.5 L (0.7-1.2) mg/dl Est GFR ( Amer) > 60 Est GFR (Non-Af Amer) > 60 POC Glucose (mg/dL) (65-110) mg/dL Random Glucose 127 H (65-105) mg/dL Calcium 8.4 (8.4-10.2) mg/dL Blood Type Antibody Screen Antibody Identification Crossmatch BBK History Checked Laboratory Results - last 24 hr 02/19/18 02/19/18 02/19/18 16:18 16:18 16:18 WBC 7.5 RBC 2.17 L Hgb 5.4 L* D Hct 17.5 L MCV 80.7 L D MCH 24.9 L MCHC 30.8 L RDW 18.0 H Plt Count 208 PT INR APTT Sodium 141 Potassium 3.9 Chloride 101 Carbon Dioxide 27 Anion Gap 17 BUN 16 Creatinine 0.5 L Est GFR ( Amer) > 60 Est GFR (Non-Af Amer) > 60 POC Glucose (mg/dL) Random Glucose 127 H Calcium 8.4 Blood Type O NEGATIVE Antibody Screen Positive Antibody Identification Anti K Crossmatch See Detail BBK History Checked Patient has bt 02/19/18 02/19/18 02/20/18 19:00 22:01 05:34 WBC 8.0 RBC 2.16 L Hgb 5.3 L* Hct 17.5 L MCV 81.1 MCH 24.7 L MCHC 30.5 L RDW 18.2 H Plt Count 207 PT 21.9 H INR 2.0 H APTT 34.1 Sodium Potassium Chloride Carbon Dioxide Anion Gap BUN Creatinine Est GFR ( Amer) Est GFR (Non-Af Amer) POC Glucose (mg/dL) 125 H Random Glucose Calcium Blood Type Antibody Screen Antibody Identification Crossmatch BBK History Checked 02/20/18 02/20/18 08:34 08:34 WBC 8.3 RBC 2.80 L Hgb 7.3 L D Hct 23.1 L MCV 82.5 MCH 26.2 L MCHC 31.8 L RDW 17.3 H Plt Count 197 PT INR APTT Sodium 141 Potassium 3.9 Chloride 101 Carbon Dioxide 28 Anion Gap 16 BUN 13 Creatinine 0.6 L Est GFR ( Amer) > 60 Est GFR (Non-Af Amer) > 60 POC Glucose (mg/dL) Random Glucose 128 H Calcium 8.0 L Blood Type Antibody Screen Antibody Identification Crossmatch BBK History Checked EKG/Cardiology Studies: Cardiology / EKG Studies 02/19/18 15:56 ELECTROCARDIOGRAM Stat Comment: Mode Of Transportation: Reason For Exam: anemia Fingerstick Blood Sugar Results: 125 Critical Care Progress Note - Nutrition Nutrition: Nutrition Category Date Time Status NPO Diet [DIET] Diets 02/20/18 Breakfast Active
--- NOTE | 2018-02-20 11:25 | CARD ---
APPROVED REPORT EKG Measurement Heart [id number] <Conclusion> Atrial fibrillation ST & T wave abnormality, consider anterior ischemia Prolonged QT Abnormal ECG
[2018-02-20] MEDS: Fluticasone-Salmeterol 250-50mcg Diskus IH SCH ×2 (12:25→20:36)
[2018-02-20] MEDS: Pantoprazole 40 mg EC Tab PO SCH (12:26)
--- NOTE | 2018-02-20 13:25 | CP.PCM.PN ---
Subjective - Date & Time of Evaluation Date of Evaluation: 02/20/18 Time of Evaluation: 13:00 - Subjective Subjective: No further melena Pt went for EGD this am - no active bleed plan for Colonoscopy Friday hgb 7.3 post transfusion - will give 1 more unit PRBC today denies CP no SOB no fever no abd pain Objective - Vital Signs/Intake and Output Vital Signs (last 24 hours): Temp Pulse Resp BP Pulse Ox 97.6 F 96 H 13 137/74 99 02/20/18 12:00 02/20/18 12:00 02/20/18 12:00 02/20/18 12:26 02/20/18 12:00 Intake and Output: 02/20/18 02/20/18 06:59 18:59 Intake Total 1350 330 Output Total 1000 150 Balance 350 180 - Medications Medications: Current Medications Atorvastatin Calcium (Lipitor) 40 mg PO QPM [facility] Furosemide (Lasix) 40 mg PO DAILY [facility] Last Admin: 02/20/18 12:26 Dose: 40 mg Levothyroxine Sodium (Synthroid) 175 mcg PO DAILY@0630 [facility] Last Admin: 02/20/18 06:29 Dose: Not Given Losartan Potassium (Cozaar) 100 mg PO DAILY [facility] Last Admin: 02/20/18 12:25 Dose: 100 mg Nitroglycerin (Nitrostat Sl Tab) 0.4 mg SL Q5MIN PRN PRN Reason: Chest pain Olopatadine HCl (Patanol 0.1% Opht Soln) 1 drop OU DAILY [facility] Ondansetron HCl (Zofran Inj) 4 mg IVP Q4 PRN PRN Reason: Nausea/Vomiting Last Admin: 02/20/18 03:54 Dose: 4 mg Pantoprazole Sodium (Protonix Ec Tab) 40 mg PO DAILY [facility] Last Admin: 02/20/18 12:26 Dose: 40 mg Potassium Chloride (K-Dur 20 Meq Er Tab) 20 meq PO QPM JOSE A Pregabalin (Lyrica) 75 mg PO Q12 [facility] Last Admin: 02/20/18 12:28 Dose: 75 mg Fluticasone/Salmeterol (Advair Diskus 250/50) 1 puff IH Q12 [facility] Last Admin: 02/20/18 12:25 Dose: 1 puff - Labs Labs: 02/20/18 08:34 02/20/18 08:34 PT 21.9 Seconds (9.8-13.1) H 02/19/18 19:00 INR 2.0 (0.9-1.2) H 02/19/18 19:00 APTT 34.1 Seconds (25.6-37.1) 02/19/18 19:00 - Constitutional Appears: No Acute Distress - Head Exam Head Exam: NORMAL INSPECTION, NORMOCEPHALIC - Eye Exam Eye Exam: EOMI, Normal appearance Pupil Exam: NORMAL ACCOMODATION - ENT Exam ENT Exam: Mucous Membranes Moist, Normal External Ear Exam - Neck Exam Neck Exam: Full ROM. absent: Meningismus - Respiratory Exam Respiratory Exam: NORMAL BREATHING PATTERN. absent: Rales, Wheezes, Respiratory Distress - Cardiovascular Exam Cardiovascular Exam: Irregular Rhythm, +S1, +S2 - GI/Abdominal Exam GI & Abdominal Exam: Soft, Normal Bowel Sounds. absent: Tenderness - Extremities Exam Extremities Exam: Normal Capillary Refill. absent: Calf Tenderness, Pedal Edema - Back Exam Back Exam: absent: CVA tenderness (L), CVA tenderness (R) - Neurological Exam Neurological Exam: Alert, Awake, CN II-XII Intact, Oriented x3 Neuro motor strength exam: Left Upper Extremity: 5, Right Upper Extremity: 5, Left Lower Extremity: 5, Right Lower Extremity: 5 - Psychiatric Exam Psychiatric exam: Normal Affect, Normal Mood - Skin Skin Exam: Dry, Pallor, Warm Assessment and Plan - Assessment and Plan (Free Text) Assessment: This is an 87 year old female with a past medical history significant for coronary artery disease, essential hypertension, atrial fibrillation (was on Eliquis starting 1 month ago), congestive heart failure, type 2 DM, COPD, diverticulitis, sleep apnea, and hypothyroidism, admitted to ICU for upper GI bleed. (1) Acute GI bleed with melena -pt admitted to ICU and closely monitored - tranfused 2 units PRBC - started on Protonix drip - Pt was on Eliquis - Consulted Dr. Calvert- EGD done today - no actiive bleed, no ulcer - hemodynamically stable at the present time - Plan for Colonoscopy on Friday 2. Acute Blood Loss Anemia sec to GIB Hgb : 5.2 post transfusion 7.3 - will transfuse 1 more unit PRBC today 3. Diastolic chronic CHF (congestive heart failure), without exacerbation Status: Acute continue taking Lasix 40mg and Losartan ECHO: normal LV function on previous admission. 4. COPD (chronic obstructive pulmonary disease) Status: Chronic, at baseline continue home COPD medications patient also need her CPAP machine at bedtime because of sleep apnea 5. CAD (coronary artery disease) Status: Chronic Continue Lipitor, Losartan Holding ASA and Eliquis due to GI bleed 6. Hypertension continue Losartan 7. Atrial fibrillation Status: Chronic d/c Eliquis 8. Diabetes mellitus, type II Status: Chronic Insulin sliding scale. hold metformin 9. Hypothyroidism Status: Chronic will continue Levothyroxine 175mcg PO daily DVT prophylaxis - SCDs, no anticoag sec to GIB
[2018-02-20] MEDS: Potassium Chloride 20 mEq ER Tab PO SCH (17:10)
[2018-02-21] MEDS: Levothyroxine 175 MCG TAB PO SCH (06:17)
[2018-02-21 08:45] LABS: MEAN CELL VOLUME 85.3 fl (81.0-99.0); MEAN CORPUSCULAR HGB CONC 31.7 g/dL (33.0-37.0); RBC 2.96 Mil/uL (3.80-5.20); RED CELL DISTRIBUTION WIDTH 17.9 % (11.5-14.5); WHITE BLOOD COUNT 8.9 K/uL (4.8-10.8)
[2018-02-21 09:12] LABS: BLOOD UREA NITROGEN 17 mg/dl (7-17); CALCIUM 8.1 mg/dL (8.4-10.2); GFR AFRICAN-AMERICAN > 60; GFR NON-AFRICAN AMERICAN > 60
[2018-02-21] MEDS: Fluticasone-Salmeterol 250-50mcg Diskus IH SCH ×2 (09:56→21:16)
[2018-02-21] MEDS: Pantoprazole 40 mg EC Tab PO SCH (09:57)
[2018-02-21 10:26] LABS: INR 1.4 (0.9-1.2)
--- NOTE | 2018-02-21 11:31 | CP.PCM.PN ---
Subjective - Date & Time of Evaluation Date of Evaluation: 02/21/18 Time of Evaluation: 11:30 - Subjective Subjective: Patient seen bedside. Hemodynamically stable, afebrile. No more bleeding episodes. No acute issues overnight hgb 8 Objective - Vital Signs/Intake and Output Vital Signs (last 24 hours): Temp Pulse Resp BP Pulse Ox 100.1 F H 99 H 18 145/75 96 02/21/18 08:00 02/21/18 09:57 02/21/18 08:00 02/21/18 09:58 02/21/18 08:00 - Medications Medications: Current Medications Atorvastatin Calcium (Lipitor) 40 mg PO QPM [facility] Last Admin: 02/20/18 17:10 Dose: 40 mg Furosemide (Lasix) 40 mg PO DAILY [facility] Last Admin: 02/21/18 09:58 Dose: 40 mg Levothyroxine Sodium (Synthroid) 175 mcg PO DAILY@0630 [facility] Last Admin: 02/21/18 06:17 Dose: 175 mcg Losartan Potassium (Cozaar) 100 mg PO DAILY [facility] Last Admin: 02/21/18 09:57 Dose: 100 mg Nitroglycerin (Nitrostat Sl Tab) 0.4 mg SL Q5MIN PRN PRN Reason: Chest pain Olopatadine HCl (Patanol 0.1% Opht Soln) 1 drop OU DAILY [facility] Ondansetron HCl (Zofran Inj) 4 mg IVP Q4 PRN PRN Reason: Nausea/Vomiting Last Admin: 02/20/18 03:54 Dose: 4 mg Pantoprazole Sodium (Protonix Ec Tab) 40 mg PO DAILY [facility] Last Admin: 02/21/18 09:57 Dose: 40 mg Potassium Chloride (K-Dur 20 Meq Er Tab) 20 meq PO QPM [facility] Last Admin: 02/20/18 17:10 Dose: 20 meq Pregabalin (Lyrica) 75 mg PO Q12 [facility] Last Admin: 02/21/18 10:00 Dose: 75 mg Fluticasone/Salmeterol (Advair Diskus 250/50) 1 puff IH Q12 [facility] Last Admin: 02/21/18 09:56 Dose: 1 puff - Labs Labs: 02/21/18 06:01 02/21/18 06:01 PT 16.0 Seconds (9.8-13.1) H D 02/21/18 06:01 INR 1.4 (0.9-1.2) H D 02/21/18 06:01 APTT 34.1 Seconds (25.6-37.1) 02/19/18 19:00 - Constitutional Appears: Non-toxic, No Acute Distress - Head Exam Head Exam: ATRAUMATIC, NORMAL INSPECTION, NORMOCEPHALIC - Eye Exam Eye Exam: EOMI, PERRL Pupil Exam: NORMAL ACCOMODATION - ENT Exam ENT Exam: Mucous Membranes Moist, Normal Exam - Neck Exam Neck Exam: Full ROM, Normal Inspection - Respiratory Exam Respiratory Exam: Clear to Ausculation Bilateral. absent: Rhonchi, Wheezes - Cardiovascular Exam Cardiovascular Exam: Irregular Rhythm. absent: JVD - GI/Abdominal Exam GI & Abdominal Exam: Soft, Normal Bowel Sounds. absent: Distended, Guarding, Rebound - Rectal Exam Rectal Exam: Deferred - Extremities Exam Extremities Exam: Normal Capillary Refill, Normal Inspection. absent: Pedal Edema - Back Exam Back Exam: NORMAL INSPECTION - Neurological Exam Neurological Exam: Alert, Awake, CN II-XII Intact - Psychiatric Exam Psychiatric exam: Normal Affect - Skin Skin Exam: Dry, Pallor, Warm Assessment and Plan - Assessment and Plan (Free Text) Assessment: 87 year old female with a past medical history significant for coronary artery disease, essential hypertension, atrial fibrillation (was on Eliquis starting 1 month ago), congestive heart failure, type 2 DM, COPD, diverticulitis, sleep apnea, and hypothyroidism, admitted to ICU for upper GI bleed. Patient's hgb found can 5.2 on admission . She was transfused 3 unit PRBC , GI consulted and underwent EGD that showed no active bleed. Eliquis on hold At present no more bleeding episodes , Hgb 8. plan for colonoscopy on Friday. 1. Acute GI bleed with melena Hgb 5.2 on admission s/p 3 units PRBC transfusion with Hgb today 8 Hold Eliquis Continue Protonix GI following . Plan for colonoscopy on Friday 2. Acute Blood Loss Anemia sec to GIB Hgb : 5.2 post transfusion of 3 unit PRBC 8 3. Diastolic chronic CHF (congestive heart failure), without exacerbation stable continue taking Lasix 40mg and Losartan ECHO: normal LV function on previous admission. 4. COPD (chronic obstructive pulmonary disease) Chronic, at baseline continue home COPD medications patient also need her CPAP machine at bedtime because of sleep apnea . Son will bring her machine 5. CAD (coronary artery disease) Chronic Continue Lipitor, Losartan Holding ASA and Eliquis due to GI bleed 6. Hypertension continue Losartan 7. Atrial fibrillation Chronic , rate controlled Eliquis on hold 8. Diabetes mellitus, type II Chronic Insulin sliding scale. hold metformin 9. Hypothyroidism Chronic on levothyroxine 175mcg PO daily 10. DVT prophylaxis -SCDs, no anticoag sec to GIB
[2018-02-21] MEDS: Olopatadine 0.1% Opht SOLN OU SCH (15:25)
[2018-02-21] MEDS: Potassium Chloride 20 mEq ER Tab PO SCH (17:16)
--- NOTE | 2018-02-21 23:09 | CP.PCM.PN ---
Subjective - Date & Time of Evaluation Date of Evaluation: 02/21/18 Time of Evaluation: 23:07 - Subjective Subjective: Clinically doing well. Hgb stable and no complaints. Objective - Vital Signs/Intake and Output Vital Signs (last 24 hours): Temp Pulse Resp BP Pulse Ox 99.4 F 99 H 17 104/50 L 98 02/21/18 20:31 02/21/18 20:31 02/21/18 20:31 02/21/18 20:31 02/21/18 20:31 Intake and Output: 02/21/18 02/22/18 18:59 06:59 Intake Total 640 Balance 640 - Medications Medications: Current Medications Atorvastatin Calcium (Lipitor) 40 mg PO QPM [facility] Last Admin: 02/21/18 17:15 Dose: 40 mg Bisacodyl (Dulcolax) 20 mg PO ONCE ONE Stop: 02/22/18 14:01 Furosemide (Lasix) 40 mg PO DAILY [facility] Last Admin: 02/21/18 09:58 Dose: 40 mg Lactated Ringer's (Lactated Ringer's) 1,000 mls @ 70 mls/hr IV .[id number] [facility] Levothyroxine Sodium (Synthroid) 175 mcg PO DAILY@0630 [facility] Last Admin: 02/21/18 06:17 Dose: 175 mcg Losartan Potassium (Cozaar) 100 mg PO DAILY [facility] Last Admin: 02/21/18 09:57 Dose: 100 mg Magnesium Citrate (Citrate Of Mag) 300 ml PO ONCE ONE Stop: 02/22/18 11:01 Magnesium Citrate (Citrate Of Mag) 300 ml PO ONCE ONE Stop: 02/22/18 19:01 Nitroglycerin (Nitrostat Sl Tab) 0.4 mg SL Q5MIN PRN PRN Reason: Chest pain Olopatadine HCl (Patanol 0.1% Opht Soln) 1 drop OU DAILY [facility] Last Admin: 02/21/18 15:25 Dose: 1 drop Ondansetron HCl (Zofran Inj) 4 mg IVP Q4 PRN PRN Reason: Nausea/Vomiting Last Admin: 02/20/18 03:54 Dose: 4 mg Pantoprazole Sodium (Protonix Ec Tab) 40 mg PO DAILY [facility] Last Admin: 02/21/18 09:57 Dose: 40 mg Potassium Chloride (K-Dur 20 Meq Er Tab) 20 meq PO QPM [facility] Last Admin: 02/21/18 17:16 Dose: 20 meq Pregabalin (Lyrica) 75 mg PO Q12 JOSE A Last Admin: 02/21/18 21:16 Dose: 75 mg Fluticasone/Salmeterol (Advair Diskus 250/50) 1 puff IH Q12 JOSE A Last Admin: 02/21/18 21:16 Dose: 1 puff - Labs Labs: 02/21/18 06:01 02/21/18 06:01 PT 16.0 Seconds (9.8-13.1) H D 02/21/18 06:01 INR 1.4 (0.9-1.2) H D 02/21/18 06:01 APTT 34.1 Seconds (25.6-37.1) 02/19/18 19:00 - Head Exam Head Exam: ATRAUMATIC - Eye Exam Eye Exam: Normal appearance Pupil Exam: PERRL - Neck Exam Neck Exam: Normal Inspection - Respiratory Exam Respiratory Exam: NORMAL BREATHING PATTERN - Cardiovascular Exam Cardiovascular Exam: REGULAR RHYTHM - GI/Abdominal Exam GI & Abdominal Exam: Soft. absent: Tenderness Assessment and Plan (1) Anemia Assessment & Plan: Clinically stable. Has iron deficiency anemia with + FOBT. Negative upper endoscopy. For colonoscopy Friday to r/o lower GI source of bleeding. Status: Chronic
[2018-02-22] MEDS: Levothyroxine 175 MCG TAB PO SCH (05:56)
--- NOTE | 2018-02-22 07:24 | CP.PCM.PN ---
Subjective - Date & Time of Evaluation Date of Evaluation: 02/22/18 Time of Evaluation: 10:00 - Subjective Subjective: Patient seen and examined bedside. Feeling sleepy and drowsy. Denies any pain or discomfort .Denies any more bleeding episodes Hemodynamically stable, afebrile Objective - Vital Signs/Intake and Output Vital Signs (last 24 hours): Temp Pulse Resp BP Pulse Ox 100.8 F H 108 H 20 105/58 L 93 L 02/22/18 04:56 02/22/18 04:56 02/22/18 04:56 02/22/18 04:56 02/22/18 04:56 - Medications Medications: Current Medications Acetaminophen (Tylenol 325mg Tab) 650 mg PO Q6 PRN PRN Reason: Pain, moderate (4-7) Last Admin: 02/22/18 06:49 Dose: 650 mg Atorvastatin Calcium (Lipitor) 40 mg PO QPM [facility] Last Admin: 02/21/18 17:15 Dose: 40 mg Bisacodyl (Dulcolax) 20 mg PO ONCE ONE Stop: 02/22/18 14:01 Furosemide (Lasix) 40 mg PO DAILY [facility] Last Admin: 02/21/18 09:58 Dose: 40 mg Lactated Ringer's (Lactated Ringer's) 1,000 mls @ 70 mls/hr IV .[id number] [facility] Levothyroxine Sodium (Synthroid) 175 mcg PO DAILY@0630 [facility] Last Admin: 02/22/18 05:56 Dose: 175 mcg Losartan Potassium (Cozaar) 100 mg PO DAILY [facility] Last Admin: 02/21/18 09:57 Dose: 100 mg Magnesium Citrate (Citrate Of Mag) 300 ml PO ONCE ONE Stop: 02/22/18 11:01 Magnesium Citrate (Citrate Of Mag) 300 ml PO ONCE ONE Stop: 02/22/18 19:01 Nitroglycerin (Nitrostat Sl Tab) 0.4 mg SL Q5MIN PRN PRN Reason: Chest pain Olopatadine HCl (Patanol 0.1% Opht Soln) 1 drop OU DAILY [facility] Last Admin: 02/21/18 15:25 Dose: 1 drop Ondansetron HCl (Zofran Inj) 4 mg IVP Q4 PRN PRN Reason: Nausea/Vomiting Last Admin: 02/20/18 03:54 Dose: 4 mg Pantoprazole Sodium (Protonix Ec Tab) 40 mg PO DAILY [facility] Last Admin: 02/21/18 09:57 Dose: 40 mg Potassium Chloride (K-Dur 20 Meq Er Tab) 20 meq PO QPM [facility] Last Admin: 02/21/18 17:16 Dose: 20 meq Pregabalin (Lyrica) 75 mg PO Q12 [facility] Last Admin: 02/21/18 21:16 Dose: 75 mg Fluticasone/Salmeterol (Advair Diskus 250/50) 1 puff IH Q12 [facility] Last Admin: 02/21/18 21:16 Dose: 1 puff - Labs Labs: 02/21/18 06:01 02/21/18 06:01 PT 16.0 Seconds (9.8-13.1) H D 02/21/18 06:01 INR 1.4 (0.9-1.2) H D 02/21/18 06:01 APTT 34.1 Seconds (25.6-37.1) 02/19/18 19:00 - Constitutional Appears: Non-toxic, No Acute Distress - Head Exam Head Exam: ATRAUMATIC, NORMAL INSPECTION, NORMOCEPHALIC - Eye Exam Eye Exam: EOMI, Normal appearance, PERRL Pupil Exam: NORMAL ACCOMODATION - ENT Exam ENT Exam: Mucous Membranes Moist, Normal Exam - Neck Exam Neck Exam: Full ROM, Normal Inspection - Respiratory Exam Respiratory Exam: Clear to Ausculation Bilateral, NORMAL BREATHING PATTERN. absent: Rales, Rhonchi, Wheezes - Cardiovascular Exam Cardiovascular Exam: +S1, +S2. absent: JVD - GI/Abdominal Exam GI & Abdominal Exam: Soft, Normal Bowel Sounds. absent: Distended, Guarding, Tenderness, Rebound - Rectal Exam Rectal Exam: Deferred - Extremities Exam Extremities Exam: Normal Capillary Refill. absent: Calf Tenderness, Pedal Edema - Back Exam Back Exam: NORMAL INSPECTION - Neurological Exam Neurological Exam: Alert, Awake, CN II-XII Intact, Oriented x3 Additional comments: drowsy , sleepy - Psychiatric Exam Psychiatric exam: Normal Affect - Skin Skin Exam: Dry, Pallor, Warm Assessment and Plan - Assessment and Plan (Free Text) Assessment: 87 year old female with a past medical history significant for coronary artery disease, essential hypertension, atrial fibrillation (was on Eliquis starting 1 month ago), congestive heart failure, type 2 DM, COPD, diverticulitis, sleep apnea, and hypothyroidism, admitted to ICU for upper GI bleed. Patient's hgb found can 5.2 on admission . She was transfused 3 unit PRBC , GI consulted and underwent EGD that showed no active bleed. Eliquis on hold At present no more bleeding episodes , Hgb 8. Plan for colonoscopy tomorrow. Today feeling somewhat sleepy and drowsy. Her medication list reviewed. 1. Acute GI bleed with melena Hgb 5.2 on admission s/p 3 units PRBC transfusion with Hgb today 8.1 Hold Eliquis Continue Protonix Started Venofer IV GI following . Plan for colonoscopy tomorrow 2. Acute Blood Loss Anemia sec to GIB Hgb : 5.2 post transfusion of 3 unit PRBC 8.1 3. Diastolic chronic CHF (congestive heart failure), without exacerbation stable continue taking Lasix 40mg and Losartan ECHO: normal LV function on previous admission. 4. COPD (chronic obstructive pulmonary disease) Chronic, at baseline continue home COPD medications son brought her CPAP machine for use 5. CAD (coronary artery disease) Chronic Continue Lipitor, Losartan Holding ASA and Eliquis due to GI bleed 6. Hypertension continue Losartan 7. Atrial fibrillation Chronic , rate controlled Eliquis on hold 8. Diabetes mellitus, type II Chronic Insulin sliding scale. hold metformin 9. Hypothyroidism Chronic on levothyroxine 175mcg PO daily 10. DVT prophylaxis -SCDs, no anticoag sec to GIB
[2018-02-22 07:31] LABS: BLOOD UREA NITROGEN 16 mg/dl (7-17); CALCIUM 8.1 mg/dL (8.4-10.2); GFR AFRICAN-AMERICAN > 60; GFR NON-AFRICAN AMERICAN > 60
[2018-02-22 07:44] LABS: HEMOGLOBIN 8.1 g/dL (12.0-16.0); MEAN CELL VOLUME 86.8 fl (81.0-99.0); MEAN CORPUSCULAR HEMOGLOBIN 28.4 pg (27.0-31.0); MEAN CORPUSCULAR HGB CONC 32.7 g/dL (33.0-37.0); RBC 2.86 Mil/uL (3.80-5.20); RED CELL DISTRIBUTION WIDTH 19.2 % (11.5-14.5); WHITE BLOOD COUNT 9.6 K/uL (4.8-10.8)
[2018-02-22] MEDS: Fluticasone-Salmeterol 250-50mcg Diskus IH SCH ×2 (09:09→22:21)
[2018-02-22] MEDS: Pantoprazole 40 mg EC Tab PO SCH (09:10)
[2018-02-22] MEDS: Olopatadine 0.1% Opht SOLN OU SCH (09:11)
[2018-02-22] MEDS ORDERED: Magnesium Citrate Oral SOL (300 ml) PO ONE ×2 (11:00→19:00)
[2018-02-22 11:56] LABS: IRON 25 ug/dL (37-170)
[2018-02-22 12:06] LABS: % IRON SATURATION 6 % (20-55); TOTAL IRON BINDING CAPACITY 397 ug/dL (250-450)
[2018-02-22] MEDS ORDERED: Bisacodyl 5mg EC Tab PO ONE (14:00)
[2018-02-22] MEDS: Potassium Chloride 20 mEq ER Tab PO SCH (17:52)
--- NOTE | 2018-02-22 19:07 | CP.PCM.PN ---
Subjective - Date & Time of Evaluation Date of Evaluation: 02/22/18 Time of Evaluation: 19:04 - Subjective Subjective: Clinically stable. No evidence of bleeding. On colonoscopy prep. Objective - Vital Signs/Intake and Output Vital Signs (last 24 hours): Temp Pulse Resp BP Pulse Ox 97.4 F L 79 20 126/60 100 02/22/18 17:00 02/22/18 17:00 02/22/18 17:00 02/22/18 17:00 02/22/18 17:00 Intake and Output: 02/22/18 02/23/18 18:59 06:59 Intake Total 1000 Balance 1000 - Medications Medications: Current Medications Acetaminophen (Tylenol 325mg Tab) 650 mg PO Q6 PRN PRN Reason: Pain, moderate (4-7) Last Admin: 02/22/18 06:49 Dose: 650 mg Atorvastatin Calcium (Lipitor) 40 mg PO QPM [facility] Last Admin: 02/22/18 17:52 Dose: 40 mg Furosemide (Lasix) 40 mg PO DAILY [facility] Last Admin: 02/22/18 09:15 Dose: Not Given Lactated Ringer's (Lactated Ringer's) 1,000 mls @ 70 mls/hr IV .[id number] [facility] Iron Sucrose 100 mg/ Sodium (Chloride) 105 mls @ 105 mls/hr IVPB DAILY [facility] Last Admin: 02/22/18 14:34 Dose: 105 mls/hr Levothyroxine Sodium (Synthroid) 175 mcg PO DAILY@0630 [facility] Last Admin: 02/22/18 05:56 Dose: 175 mcg Losartan Potassium (Cozaar) 100 mg PO DAILY [facility] Last Admin: 02/22/18 09:09 Dose: 100 mg Nitroglycerin (Nitrostat Sl Tab) 0.4 mg SL Q5MIN PRN PRN Reason: Chest pain Olopatadine HCl (Patanol 0.1% Opht Soln) 1 drop OU DAILY [facility] Last Admin: 02/22/18 09:11 Dose: 1 drop Ondansetron HCl (Zofran Inj) 4 mg IVP Q4 PRN PRN Reason: Nausea/Vomiting Last Admin: 02/20/18 03:54 Dose: 4 mg Pantoprazole Sodium (Protonix Ec Tab) 40 mg PO DAILY [facility] Last Admin: 02/22/18 09:10 Dose: 40 mg Potassium Chloride (K-Dur 20 Meq Er Tab) 20 meq PO QPM [facility] Last Admin: 02/22/18 17:52 Dose: 20 meq Pregabalin (Lyrica) 75 mg PO Q12 [facility] Last Admin: 02/22/18 10:34 Dose: 75 mg Fluticasone/Salmeterol (Advair Diskus 250/50) 1 puff IH Q12 [facility] Last Admin: 02/22/18 09:09 Dose: 1 puff - Labs Labs: 02/22/18 06:45 02/22/18 06:45 PT 16.0 Seconds (9.8-13.1) H D 02/21/18 06:01 INR 1.4 (0.9-1.2) H D 02/21/18 06:01 APTT 34.1 Seconds (25.6-37.1) 02/19/18 19:00 - Head Exam Head Exam: ATRAUMATIC - Eye Exam Eye Exam: Normal appearance - ENT Exam ENT Exam: Mucous Membranes Moist, Normal Exam - Neck Exam Neck Exam: Full ROM - Respiratory Exam Respiratory Exam: Clear to Ausculation Bilateral - Cardiovascular Exam Cardiovascular Exam: REGULAR RHYTHM - GI/Abdominal Exam GI & Abdominal Exam: Soft. absent: Tenderness Assessment and Plan (1) Anemia Assessment & Plan: Fe deficiency anemia. Upper endsocopy essentially negative. For colonoscopy tomorrow to r/o polyp, mass, or other lesion. Fe stores being replemished with Venofer. Status: Chronic
[2018-02-22] MEDS: Lactated Ringer's 1,000 ML IV SCH (22:22)
[2018-02-23 05:42] LABS: HEMOGLOBIN 7.9 g/dL (12.0-16.0); MEAN CORPUSCULAR HEMOGLOBIN 27.6 pg (27.0-31.0); MEAN CORPUSCULAR HGB CONC 32.1 g/dL (33.0-37.0); RBC 2.87 Mil/uL (3.80-5.20); WHITE BLOOD COUNT 8.9 K/uL (4.8-10.8)
[2018-02-23 05:49] LABS: INR 1.5 (0.9-1.2); PROTHROMBIN TIME 16.5 Seconds (9.8-13.1)
[2018-02-23 06:08] LABS: ALBUMIN 3.4 g/dL (3.5-5.0); ALT/SGPT 35 U/L (9-52); AST/SGOT 29 U/L (14-36); BLOOD UREA NITROGEN 11 mg/dl (7-17); CALCIUM 8.4 mg/dL (8.4-10.2); GFR AFRICAN-AMERICAN > 60; GFR NON-AFRICAN AMERICAN > 60
[2018-02-23] MEDS: Levothyroxine 175 MCG TAB PO SCH (06:58)
[2018-02-23] MEDS: Fluticasone-Salmeterol 250-50mcg Diskus IH SCH ×2 (08:23→23:34)
[2018-02-23] MEDS: Pantoprazole 40 mg EC Tab PO SCH (08:24)
[2018-02-23] MEDS: Olopatadine 0.1% Opht SOLN OU SCH (08:24)
--- NOTE | 2018-02-23 13:07 | CP.PCM.PN ---
Subjective - Date & Time of Evaluation Date of Evaluation: 02/23/18 Time of Evaluation: 12:00 - Subjective Subjective: t now has fever feels weak denies cough no CP no SOB no dyzuria sl abd discomfort Coloscopy rescheduled for tomorrow bec of the fever Objective - Vital Signs/Intake and Output Vital Signs (last 24 hours): Temp Pulse Resp BP Pulse Ox 101.2 F H 116 H 18 136/63 94 L 02/23/18 12:42 02/23/18 12:42 02/23/18 12:42 02/23/18 12:42 02/23/18 12:42 - Medications Medications: Current Medications Acetaminophen (Tylenol 325mg Tab) 650 mg PO Q6 PRN PRN Reason: Pain, moderate (4-7) Last Admin: 02/22/18 06:49 Dose: 650 mg Atorvastatin Calcium (Lipitor) 40 mg PO QPM [facility] Last Admin: 02/22/18 17:52 Dose: 40 mg Furosemide (Lasix) 40 mg PO DAILY [facility] Last Admin: 02/23/18 08:23 Dose: Not Given Lactated Ringer's (Lactated Ringer's) 1,000 mls @ 70 mls/hr IV .[id number] [facility] Last Admin: 02/22/18 22:22 Dose: 70 mls/hr Iron Sucrose 100 mg/ Sodium (Chloride) 105 mls @ 105 mls/hr IVPB DAILY [facility] Last Admin: 02/22/18 14:34 Dose: 105 mls/hr Piperacillin Sod/Tazobactam (Sod 3.375 gm/ Sodium Chloride) 100 mls @ 100 mls/ hr IVPB Q6 [facility] PRN Reason: Protocol Levothyroxine Sodium (Synthroid) 175 mcg PO DAILY@0630 [facility] Last Admin: 02/23/18 06:58 Dose: Not Given Losartan Potassium (Cozaar) 100 mg PO DAILY [facility] Last Admin: 02/23/18 08:23 Dose: Not Given Nitroglycerin (Nitrostat Sl Tab) 0.4 mg SL Q5MIN PRN PRN Reason: Chest pain Olopatadine HCl (Patanol 0.1% Opht Soln) 1 drop OU DAILY [facility] Last Admin: 02/23/18 08:24 Dose: 1 drop Ondansetron HCl (Zofran Inj) 4 mg IVP Q4 PRN PRN Reason: Nausea/Vomiting Last Admin: 02/20/18 03:54 Dose: 4 mg Pantoprazole Sodium (Protonix Ec Tab) 40 mg PO DAILY [facility] Last Admin: 02/23/18 08:24 Dose: Not Given Potassium Chloride (K-Dur 20 Meq Er Tab) 20 meq PO QPM [facility] Last Admin: 02/22/18 17:52 Dose: 20 meq Pregabalin (Lyrica) 75 mg PO Q12 [facility] Last Admin: 02/23/18 08:23 Dose: Not Given Fluticasone/Salmeterol (Advair Diskus 250/50) 1 puff IH Q12 [facility] Last Admin: 02/23/18 08:23 Dose: 1 puff - Labs Labs: 02/23/18 04:20 02/23/18 04:20 PT 16.5 Seconds (9.8-13.1) H 02/23/18 04:20 INR 1.5 (0.9-1.2) H 02/23/18 04:20 APTT 34.1 Seconds (25.6-37.1) 02/19/18 19:00 - Constitutional Appears: No Acute Distress - Head Exam Head Exam: NORMAL INSPECTION, NORMOCEPHALIC - Eye Exam Eye Exam: EOMI, Normal appearance Pupil Exam: NORMAL ACCOMODATION - ENT Exam ENT Exam: Mucous Membranes Moist, Normal External Ear Exam - Neck Exam Neck Exam: Full ROM. absent: Meningismus - Respiratory Exam Respiratory Exam: NORMAL BREATHING PATTERN. absent: Rales, Wheezes, Respiratory Distress - Cardiovascular Exam Cardiovascular Exam: Irregular Rhythm, +S1, +S2 - GI/Abdominal Exam GI & Abdominal Exam: Soft, Normal Bowel Sounds. absent: Tenderness - Extremities Exam Extremities Exam: Normal Capillary Refill. absent: Calf Tenderness, Pedal Edema - Back Exam Back Exam: absent: CVA tenderness (L), CVA tenderness (R) - Neurological Exam Neurological Exam: Alert, Awake, CN II-XII Intact, Oriented x3 Neuro motor strength exam: Left Upper Extremity: 5, Right Upper Extremity: 5, Left Lower Extremity: 5, Right Lower Extremity: 5 - Psychiatric Exam Psychiatric exam: Normal Affect, Normal Mood - Skin Skin Exam: Dry, Pallor, Warm Assessment and Plan - Assessment and Plan (Free Text) Assessment: 87 year old female with a past medical history significant for coronary artery disease, essential hypertension, atrial fibrillation (was on Eliquis starting 1 month ago), congestive heart failure, type 2 DM, COPD, diverticulitis, sleep apnea, and hypothyroidism, admitted to ICU for upper GI bleed. Patient's hgb found to be 5.2 on admission . She was transfused 3 unit PRBC , GI consulted and underwent EGD that showed no active bleed. Eliquis on hold. At present no more bleeding episodes , Hgb 7.9. Plan for colonoscopy 02/23: today pt's Coloscopy was rescheduled neb she spiked fever . 1. Acute GI bleed with melena Hgb 5.2 on admission s/p 3 units PRBC transfusion with Hgb today 7.9, transfuse 1 more unit PRBC Hold Eliquis Continue Protonix cont Venofer IV GI following . Plan for colonoscopy tomorrow 2. Acute Blood Loss Anemia sec to GIB Hgb : 5.2 post transfusion of 3 unit PRBC 8.1 transfuse 1 units today 3. Diastolic chronic CHF (congestive heart failure), without exacerbation stable continue taking Lasix 40mg and Losartan ECHO: normal LV function on previous admission. 4. COPD (chronic obstructive pulmonary disease) Chronic, at baseline continue home COPD medications son brought her CPAP machine for use 5. CAD (coronary artery disease) Chronic Continue Lipitor, Losartan Holding ASA and Eliquis due to GI bleed 6. Hypertension continue Losartan 7. Atrial fibrillation Chronic Eliquis on hold sl tachy today prob sec to fever start low dose Cardizem 8. Diabetes mellitus, type II Chronic Insulin sliding scale. hold metformin 9. Hypothyroidism Chronic on levothyroxine 175mcg PO daily 10. DVT prophylaxis -SCDs, no anticoag sec to GIB 11. Fever ? etiology start Zosyn check UA, Urine c/s Blood c/s CXR 12. Physical Deconditioning - PT consulted- rec TCU placement
[2018-02-23] MEDS ORDERED: Metoprolol Succinate 25 mg XL Tab PO SCH (13:15)
--- NOTE | 2018-02-23 13:20 | CP.PCM.PN ---
Subjective - Date & Time of Evaluation Date of Evaluation: 02/23/18 Time of Evaluation: 13:18 - Subjective Subjective: Patient had been scheduled for colonscopy. Had temp to 101 today Objective - Vital Signs/Intake and Output Vital Signs (last 24 hours): Temp Pulse Resp BP Pulse Ox 101.2 F H 116 H 18 136/63 94 L 02/23/18 12:42 02/23/18 12:42 02/23/18 12:42 02/23/18 12:42 02/23/18 12:42 - Medications Medications: Current Medications Acetaminophen (Tylenol 325mg Tab) 650 mg PO Q6 PRN PRN Reason: Pain, moderate (4-7) Last Admin: 02/22/18 06:49 Dose: 650 mg Acetaminophen (Tylenol 325mg Tab) 650 mg PO Q6 PRN PRN Reason: Fever >100.4 F Atorvastatin Calcium (Lipitor) 40 mg PO QPM [facility] Last Admin: 02/22/18 17:52 Dose: 40 mg Furosemide (Lasix) 40 mg PO DAILY [facility] Last Admin: 02/23/18 08:23 Dose: Not Given Lactated Ringer's (Lactated Ringer's) 1,000 mls @ 70 mls/hr IV .[id number] [facility] Last Admin: 02/22/18 22:22 Dose: 70 mls/hr Iron Sucrose 100 mg/ Sodium (Chloride) 105 mls @ 105 mls/hr IVPB DAILY [facility] Last Admin: 02/22/18 14:34 Dose: 105 mls/hr Piperacillin Sod/Tazobactam (Sod 3.375 gm/ Sodium Chloride) 100 mls @ 100 mls/ hr IVPB Q6 [facility] PRN Reason: Protocol Levothyroxine Sodium (Synthroid) 175 mcg PO DAILY@0630 [facility] Last Admin: 02/23/18 06:58 Dose: Not Given Losartan Potassium (Cozaar) 100 mg PO DAILY [facility] Last Admin: 02/23/18 08:23 Dose: Not Given Metoprolol Succinate (Toprol Xl) 25 mg PO DAILY [facility] Nitroglycerin (Nitrostat Sl Tab) 0.4 mg SL Q5MIN PRN PRN Reason: Chest pain Olopatadine HCl (Patanol 0.1% Opht Soln) 1 drop OU DAILY [facility] Last Admin: 02/23/18 08:24 Dose: 1 drop Ondansetron HCl (Zofran Inj) 4 mg IVP Q4 PRN PRN Reason: Nausea/Vomiting Last Admin: 02/20/18 03:54 Dose: 4 mg Pantoprazole Sodium (Protonix Ec Tab) 40 mg PO DAILY [facility] Last Admin: 02/23/18 08:24 Dose: Not Given Potassium Chloride (K-Dur 20 Meq Er Tab) 20 meq PO QPM [facility] Last Admin: 02/22/18 17:52 Dose: 20 meq Pregabalin (Lyrica) 75 mg PO Q12 [facility] Last Admin: 02/23/18 08:23 Dose: Not Given Fluticasone/Salmeterol (Advair Diskus 250/50) 1 puff IH Q12 [facility] Last Admin: 02/23/18 08:23 Dose: 1 puff - Labs Labs: 02/23/18 04:20 02/23/18 04:20 PT 16.5 Seconds (9.8-13.1) H 02/23/18 04:20 INR 1.5 (0.9-1.2) H 02/23/18 04:20 APTT 34.1 Seconds (25.6-37.1) 02/19/18 19:00 - Eye Exam Eye Exam: Normal appearance Pupil Exam: PERRL - ENT Exam ENT Exam: Normal Exam - Respiratory Exam Respiratory Exam: NORMAL BREATHING PATTERN - Cardiovascular Exam Cardiovascular Exam: REGULAR RHYTHM - GI/Abdominal Exam GI & Abdominal Exam: Soft. absent: Tenderness Assessment and Plan (1) Anemia Assessment & Plan: Colonscopy had been scheduled but not done due to elevated temp. If temp goes down and patient maintained on clear liquids could do colonscopy tomorrow with minimal prep. Status: Chronic
[2018-02-23] MEDS: Lactated Ringer's 1,000 ML IV SCH (14:51)
--- NOTE | 2018-02-23 15:05 | RAD ---
HISTORY: Fever. COMPARISON: 02/19/2018. FINDINGS: LUNGS: No active pulmonary disease. PLEURA: No significant pleural effusion identified, no pneumothorax apparent. CARDIOVASCULAR: Cardiomegaly. No evidence of acute, significant cardiovascular disease. OSSEOUS STRUCTURES: No significant abnormalities. VISUALIZED UPPER ABDOMEN: Normal. OTHER FINDINGS: None. IMPRESSION: No active disease. No significant interval change compared to the prior examination(s).
[2018-02-23 16:55] LABS: FOLATE 9.8 ng/mL
[2018-02-23] MEDS: Potassium Chloride 20 mEq ER Tab PO SCH (17:02)
[2018-02-23] MEDS: Piperacillin/Tazobact 3.375 GM in Sodium Chloride 0.9% 100 ML IVPB SCH (17:02)
[2018-02-23 18:59] LABS: SQUAMOUS EPITHIAL 9 /hpf (0-5); URINE BACTERIA FEW (<OCC); URINE BILIRUBIN NEGATIVE (NEGATIVE); URINE BLOOD LARGE (NEGATIVE); URINE CLARITY TURBID (Clear); URINE COLOR AMBER (YELLOW); URINE GLUCOSE (UA) NEG (Normal); URINE LEUKOCYTE ESTERASE MOD Leu/uL (Negative); URINE PROTEIN 30 mg/dL (NEGATIVE); URINE UROBILINOGEN 0.2-1.0 mg/dL (0.2-1.0)
[2018-02-24 05:35] LABS: BLOOD UREA NITROGEN 9 mg/dl (7-17); CALCIUM 8.2 mg/dL (8.4-10.2); GFR AFRICAN-AMERICAN > 60; GFR NON-AFRICAN AMERICAN > 60
[2018-02-24] MEDS: Levothyroxine 175 MCG TAB PO SCH (05:38)
[2018-02-24 05:56] LABS: BASO % 0.6 % (0.0-2.0); EOS # 0.2 K/uL (0.0-0.7); EOS % 2.2 % (0.0-4.0); HEMOGLOBIN 8.7 g/dL (12.0-16.0); LYMPH # 2.2 K/uL (1.0-4.3); LYMPH % 26.9 % (20.0-40.0); MEAN CELL VOLUME 86.3 fl (81.0-99.0); MEAN CORPUSCULAR HEMOGLOBIN 27.2 pg (27.0-31.0); MEAN CORPUSCULAR HGB CONC 31.5 g/dL (33.0-37.0); MONO # 0.8 K/uL (0.0-0.8); NEUT # 4.9 K/uL (1.8-7.0); NEUT % 60.3 % (50.0-75.0); NRBC % 0.1 % (0.0-0.0); RBC 3.2 Mil/uL (3.80-5.20); RED CELL DISTRIBUTION WIDTH 18.4 % (11.5-14.5); WHITE BLOOD COUNT 8.1 K/uL (4.8-10.8)
--- NOTE | 2018-02-24 08:48 | CP.PCM.PN ---
Subjective - Date & Time of Evaluation Date of Evaluation: 02/24/18 Time of Evaluation: 08:42 - Subjective Subjective: Patient doing well clinically. Appears alert. No overt bleeding. Objective - Vital Signs/Intake and Output Vital Signs (last 24 hours): Temp Pulse Resp BP Pulse Ox 98.8 F 99 H 18 127/67 97 02/24/18 08:34 02/24/18 08:34 02/24/18 08:34 02/24/18 08:34 02/24/18 08:34 Intake and Output: 02/24/18 02/24/18 06:59 18:59 Intake Total 100 Balance 100 - Medications Medications: Current Medications Acetaminophen (Tylenol 325mg Tab) 650 mg PO Q6 PRN PRN Reason: Pain, moderate (4-7) Last Admin: 02/22/18 06:49 Dose: 650 mg Acetaminophen (Tylenol 325mg Tab) 650 mg PO Q6 PRN PRN Reason: Fever >100.4 F Albuterol/Ipratropium (Duoneb 3 Mg/0.5 Mg (3 Ml) Ud) 3 ml INH RTID [facility] Atorvastatin Calcium (Lipitor) 40 mg PO QPM [facility] Last Admin: 02/23/18 17:02 Dose: 40 mg Diltiazem HCl (Cardizem) 30 mg PO TID [facility] Last Admin: 02/23/18 17:00 Dose: 30 mg Furosemide (Lasix) 40 mg PO DAILY [facility] Last Admin: 02/23/18 08:23 Dose: Not Given Lactated Ringer's (Lactated Ringer's) 1,000 mls @ 70 mls/hr IV .[id number] [facility] Last Admin: 02/23/18 14:51 Dose: 70 mls/hr Iron Sucrose 100 mg/ Sodium (Chloride) 105 mls @ 105 mls/hr IVPB DAILY [facility] Last Admin: 02/23/18 16:57 Dose: 105 mls/hr Piperacillin Sod/Tazobactam (Sod 3.375 gm/ Sodium Chloride) 100 mls @ 100 mls/ hr IVPB Q6 [facility] PRN Reason: Protocol Last Admin: 02/23/18 17:02 Dose: 100 mls/hr Levothyroxine Sodium (Synthroid) 175 mcg PO DAILY@0630 [facility] Last Admin: 02/24/18 05:38 Dose: 175 mcg Losartan Potassium (Cozaar) 100 mg PO DAILY [facility] Last Admin: 02/23/18 08:23 Dose: Not Given Magnesium Citrate (Citrate Of Mag) 300 ml PO ONCE ONE Stop: 02/24/18 19:01 Nitroglycerin (Nitrostat Sl Tab) 0.4 mg SL Q5MIN PRN PRN Reason: Chest pain Olopatadine HCl (Patanol 0.1% Opht Soln) 1 drop OU DAILY [facility] Last Admin: 02/23/18 08:24 Dose: 1 drop Ondansetron HCl (Zofran Inj) 4 mg IVP Q4 PRN PRN Reason: Nausea/Vomiting Last Admin: 02/20/18 03:54 Dose: 4 mg Pantoprazole Sodium (Protonix Ec Tab) 40 mg PO DAILY [facility] Last Admin: 02/23/18 08:24 Dose: Not Given Potassium Chloride (K-Dur 20 Meq Er Tab) 20 meq PO QPM [facility] Last Admin: 02/23/18 17:02 Dose: 20 meq Fluticasone/Salmeterol (Advair Diskus 250/50) 1 puff IH Q12 [facility] Last Admin: 02/23/18 23:34 Dose: 1 puff - Labs Labs: 02/24/18 04:25 02/24/18 04:25 PT 16.5 Seconds (9.8-13.1) H 02/23/18 04:20 INR 1.5 (0.9-1.2) H 02/23/18 04:20 APTT 34.1 Seconds (25.6-37.1) 02/19/18 19:00 - Head Exam Head Exam: ATRAUMATIC - Eye Exam Eye Exam: PERRL Pupil Exam: PERRL - ENT Exam ENT Exam: Mucous Membranes Moist - Neck Exam Neck Exam: Full ROM - Respiratory Exam Respiratory Exam: Clear to Ausculation Bilateral - Cardiovascular Exam Cardiovascular Exam: REGULAR RHYTHM, +S1, +S2 - GI/Abdominal Exam GI & Abdominal Exam: Soft, Normal Bowel Sounds. absent: Tenderness Assessment and Plan (1) Anemia Assessment & Plan: Unable to do colonoscopy yesterday due to temperature spike. Since then she has been afebrile. Rescheduled for tomorrow 8 AM. Low residue diet given today and modified prep ordered. Status: Chronic
--- NOTE | 2018-02-24 09:20 | CP.PCM.PN ---
Subjective - Date & Time of Evaluation Date of Evaluation: 02/24/18 Time of Evaluation: 09:00 - Subjective Subjective: No fever today pt is awake alert, oriented occ cough no SOB, has sl wheeze no CP no further melena no abd pain Plan for Colonoscopy in am Objective - Vital Signs/Intake and Output Vital Signs (last 24 hours): Temp Pulse Resp BP Pulse Ox 98.8 F 99 H 18 127/67 97 02/24/18 08:34 02/24/18 08:34 02/24/18 08:34 02/24/18 08:34 02/24/18 08:34 Intake and Output: 02/24/18 02/24/18 06:59 18:59 Intake Total 100 Balance 100 - Medications Medications: Current Medications Acetaminophen (Tylenol 325mg Tab) 650 mg PO Q6 PRN PRN Reason: Pain, moderate (4-7) Last Admin: 02/22/18 06:49 Dose: 650 mg Acetaminophen (Tylenol 325mg Tab) 650 mg PO Q6 PRN PRN Reason: Fever >100.4 F Albuterol/Ipratropium (Duoneb 3 Mg/0.5 Mg (3 Ml) Ud) 3 ml INH RTID [facility] Atorvastatin Calcium (Lipitor) 40 mg PO QPM [facility] Last Admin: 02/23/18 17:02 Dose: 40 mg Diltiazem HCl (Cardizem) 30 mg PO TID [facility] Last Admin: 02/23/18 17:00 Dose: 30 mg Furosemide (Lasix) 40 mg PO DAILY [facility] Last Admin: 02/23/18 08:23 Dose: Not Given Lactated Ringer's (Lactated Ringer's) 1,000 mls @ 70 mls/hr IV .[id number] [facility] Last Admin: 02/23/18 14:51 Dose: 70 mls/hr Iron Sucrose 100 mg/ Sodium (Chloride) 105 mls @ 105 mls/hr IVPB DAILY [facility] Last Admin: 02/23/18 16:57 Dose: 105 mls/hr Piperacillin Sod/Tazobactam (Sod 3.375 gm/ Sodium Chloride) 100 mls @ 100 mls/ hr IVPB Q6 [facility] PRN Reason: Protocol Last Admin: 02/23/18 17:02 Dose: 100 mls/hr Levothyroxine Sodium (Synthroid) 175 mcg PO DAILY@0630 [facility] Last Admin: 02/24/18 05:38 Dose: 175 mcg Losartan Potassium (Cozaar) 100 mg PO DAILY [facility] Last Admin: 02/23/18 08:23 Dose: Not Given Magnesium Citrate (Citrate Of Mag) 300 ml PO ONCE ONE Stop: 02/24/18 19:01 Nitroglycerin (Nitrostat Sl Tab) 0.4 mg SL Q5MIN PRN PRN Reason: Chest pain Olopatadine HCl (Patanol 0.1% Opht Soln) 1 drop OU DAILY [facility] Last Admin: 02/23/18 08:24 Dose: 1 drop Ondansetron HCl (Zofran Inj) 4 mg IVP Q4 PRN PRN Reason: Nausea/Vomiting Last Admin: 02/20/18 03:54 Dose: 4 mg Pantoprazole Sodium (Protonix Ec Tab) 40 mg PO DAILY [facility] Last Admin: 02/23/18 08:24 Dose: Not Given Potassium Chloride (K-Dur 20 Meq Er Tab) 20 meq PO QPM [facility] Last Admin: 02/23/18 17:02 Dose: 20 meq Fluticasone/Salmeterol (Advair Diskus 250/50) 1 puff IH Q12 [facility] Last Admin: 02/23/18 23:34 Dose: 1 puff - Labs Labs: 02/24/18 04:25 02/24/18 04:25 PT 16.5 Seconds (9.8-13.1) H 02/23/18 04:20 INR 1.5 (0.9-1.2) H 02/23/18 04:20 APTT 34.1 Seconds (25.6-37.1) 02/19/18 19:00 - Constitutional Appears: No Acute Distress - Head Exam Head Exam: NORMAL INSPECTION, NORMOCEPHALIC - Eye Exam Eye Exam: EOMI, Normal appearance Pupil Exam: NORMAL ACCOMODATION - ENT Exam ENT Exam: Mucous Membranes Moist, Normal External Ear Exam - Neck Exam Neck Exam: Full ROM. absent: Meningismus - Respiratory Exam Respiratory Exam: NORMAL BREATHING PATTERN. absent: Rales, Wheezes, Respiratory Distress - Cardiovascular Exam Cardiovascular Exam: Irregular Rhythm, +S1, +S2 - GI/Abdominal Exam GI & Abdominal Exam: Soft, Normal Bowel Sounds. absent: Tenderness - Extremities Exam Extremities Exam: Normal Capillary Refill. absent: Calf Tenderness, Pedal Edema - Back Exam Back Exam: absent: CVA tenderness (L), CVA tenderness (R) - Neurological Exam Neurological Exam: Alert, Awake, CN II-XII Intact, Oriented x3 Neuro motor strength exam: Left Upper Extremity: 5, Right Upper Extremity: 5, Left Lower Extremity: 5, Right Lower Extremity: 5 - Psychiatric Exam Psychiatric exam: Normal Affect, Normal Mood - Skin Skin Exam: Dry, Pallor, Warm Assessment and Plan - Assessment and Plan (Free Text) Assessment: 87 year old female with a past medical history significant for coronary artery disease, essential hypertension, atrial fibrillation (was on Eliquis starting 1 month ago), congestive heart failure, type 2 DM, COPD, diverticulitis, sleep apnea, and hypothyroidism, admitted to ICU for upper GI bleed. Patient's hgb found to be 5.2 on admission . She was transfused 3 unit PRBC , GI consulted and underwent EGD that showed no active bleed. Eliquis on hold. At present no more bleeding episodes , Hgb 7.9. Plan for colonoscopy 02/23: today pt's Coloscopy was rescheduled neb she spiked fever . 1. Acute GI bleed with melena Hgb 5.2 on admission s/p 4 units PRBC transfusion- post transfusion Hgb=8.7 Hold Eliquis Continue Protonix cont Venofer IV GI following . Plan for colonoscopy tomorrow 2. Acute Blood Loss Anemia sec to GIB Hgb : 5.2 Transfused 4 units PRBC total 3. Diastolic chronic CHF (congestive heart failure), without exacerbation stable continue taking Lasix 40mg and Losartan ECHO: normal LV function on previous admission. 4. COPD (chronic obstructive pulmonary disease), mild exacerbation mild wheeze today Dr Otto consulted continue home COPD medications son brought her CPAP machine for use 5. CAD (coronary artery disease) Chronic Continue Lipitor, Losartan Holding ASA and Eliquis due to GI bleed 6. Hypertension continue Losartan 7. Atrial fibrillation Chronic Eliquis on hold sl tachy today prob sec to fever started low dose Cardizem 8. Diabetes mellitus, type II Chronic Insulin sliding scale. hold metformin 9. Hypothyroidism Chronic on levothyroxine 175mcg PO daily 10. DVT prophylaxis -SCDs, no anticoag sec to GIB 11. Fever prob UTI started empirically on Zosyn check UA showed WBCs, await Urine c/s Blood c/s CXR: no infiltrate 12. Physical Deconditioning - PT consulted- rec TCU placement however pt refusing and wants to go home
[2018-02-24] MEDS: Albuterol-Ipratrop 3 mg / 0.5 (3 ml) UD INH SCH ×4 (09:24→19:50)
[2018-02-24] MEDS: Fluticasone-Salmeterol 250-50mcg Diskus IH SCH ×2 (09:38→21:06)
[2018-02-24] MEDS: Olopatadine 0.1% Opht SOLN OU SCH ×2 (09:44→09:45)
[2018-02-24] MEDS: Pantoprazole 40 mg EC Tab PO SCH (09:45)
[2018-02-24] MEDS: Piperacillin/Tazobact 3.375 GM in Sodium Chloride 0.9% 100 ML IVPB SCH ×4 (10:00→21:07)
--- NOTE | 2018-02-24 10:24 | CON ---
DATE: HISTORY OF PRESENT ILLNESS: Ms. Cook is an 87-year-old female who was referred for pulmonary evaluation because of wheezing and shortness of breath. She was admitted with history of atrial fibrillation and found to have gastrointestinal bleed. She is therefore referred for pulmonary evaluation because of wheezing and shortness of breath. She has a history of chronic obstructive pulmonary disease due to cigarette smoking for many years. 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 FAMILY HISTORY: Unrevealing. SOCIAL HISTORY: Socially, she quit smoking many years ago, does not drink alcohol. REVIEW OF SYSTEMS: Essentially remarkable for occasional shortness of breath. PHYSICAL EXAMINATION: GENERAL: The patient is alert and oriented, appears to be presently in no apparent distress except for mild wheezing. VITAL SIGNS: Blood pressure 127/67 with the pulse of 108, respiratory rate is 18. She is afebrile. O2 sat is 99% on nasal cannula oxygen. SKIN: Shows fair turgor. HEENT: Pupils are equal and reactive to light and accommodation. Mouth shows fair hygiene. LUNGS: Audible wheezing and rales with fair aeration. HEART: Irregular rhythm. ABDOMEN: Soft and nontender, no organomegaly. EXTREMITIES: Shows no edema or cyanosis. CENTRAL NERVOUS SYSTEM: Exam grossly intact. LABORATORY DATA: WBC 8.1, hemoglobin 8.7, and platelet count of 202,000. Sodium of 138, potassium of 4.4, BUN of 9, creatinine of 0.5, and glucose of 120. DIAGNOSTIC STUDIES: Chest x-ray: No active cardiopulmonary pathology noted. EKG, atrial fibrillation, prolonged QT, ST-T abnormality, consider anterior ischemia. IMPRESSION: There is an 87-year-old lady with anemia probably secondary to gastrointestinal bleed due to anticoagulation, history of atrial fibrillation and history of chronic obstructive pulmonary disease with mild exacerbation. PLAN: The plan at present will be continue oxygen therapy as well as bronchodilators. We will continue to follow with you. Further therapy will depend on findings. Michael Otto MD
[2018-02-24] MEDS: Lactated Ringer's 1,000 ML IV SCH (17:28)
[2018-02-24] MEDS: Potassium Chloride 20 mEq ER Tab PO SCH (17:28)
[2018-02-24] MEDS ORDERED: Magnesium Citrate Oral SOL (300 ml) PO ONE (19:00)
[2018-02-25] MEDS: Lactated Ringer's 1,000 ML IV SCH ×3 (02:09→20:09)
[2018-02-25] MEDS: Piperacillin/Tazobact 3.375 GM in Sodium Chloride 0.9% 100 ML IVPB SCH (03:49)
[2018-02-25 06:04] LABS: BLOOD UREA NITROGEN 6 mg/dl (7-17); CALCIUM 8.4 mg/dL (8.4-10.2); GFR AFRICAN-AMERICAN > 60; GFR NON-AFRICAN AMERICAN > 60
[2018-02-25 06:16] LABS: HEMOGLOBIN 8.7 g/dL (12.0-16.0); MEAN CELL VOLUME 86.6 fl (81.0-99.0); MEAN CORPUSCULAR HEMOGLOBIN 27.6 pg (27.0-31.0); MEAN CORPUSCULAR HGB CONC 31.8 g/dL (33.0-37.0); RBC 3.16 Mil/uL (3.80-5.20); RED CELL DISTRIBUTION WIDTH 19.1 % (11.5-14.5); WHITE BLOOD COUNT 7.5 K/uL (4.8-10.8)
[2018-02-25] MEDS: Albuterol-Ipratrop 3 mg / 0.5 (3 ml) UD INH SCH ×3 (07:10→19:19)
[2018-02-25] MEDS ORDERED: Lactated Ringer's 500 ML IV ONE (07:42)
[2018-02-25] MEDS ORDERED: Propofol 10 mg/ml Inj (20 ML) ONE (08:14)
[2018-02-25] MEDS ORDERED: Etomidate 20 mg/10ml Inj IV ONE ×2 (08:14→12:32)
[2018-02-25] MEDS: Fluticasone-Salmeterol 250-50mcg Diskus IH SCH (08:59)
[2018-02-25] MEDS: Pantoprazole 40 mg EC Tab PO SCH (09:00)
[2018-02-25] MEDS: Olopatadine 0.1% Opht SOLN OU SCH (09:00)
[2018-02-25] MEDS: Levothyroxine 175 MCG TAB PO SCH (09:01)
--- NOTE | 2018-02-25 09:46 | RAD ---
HISTORY: Abdominal pain. COMPARISON: 02/14/2010 abdominal series. FINDINGS: BOWEL: Normal. No obstruction. No free air. BONES: Normal. OTHER FINDINGS: None. IMPRESSION: No significant or acute findings to account for/ related to the clinical presentation.
[2018-02-25] MEDS ORDERED: Chlorhexidine Gluconate 1 APPL/PKT TP ONE (10:32)
--- NOTE | 2018-02-25 11:43 | CP.CCUPN ---
CCU Subjective - Physician Review Subjective (Free Text): Awake and alert, yelling and uncooperative, trying to get OOB, c/o severe abdominal pain, NGT placed with very minimal yellow fluid drainage. Has recd 6 mg IVP Morphine and additional 8 mg SQ Morphine and Ativan 2 mg for psychomotor agitation. Patient also placed on 5 LPM nasal cannula now, SPo2 95%. Other VS and I/Os reviewed. HR variable between 110- 130 in A Fib, SBP 140s. ROS: No other pertinent negs or positives on 10+ system review obtainable due to present agiation. PMSFH: All other Nursing and physician documentation reviewed to date; no new pertinent info noted relevant to current medical problems. EXAM- HEENT: no icterus, no gaze preference, pupils 3 mm equal and sluggishly reactive , no icterus NECK: No JVD, supple, carotids equal upstroke bilat/no bruits CHEST: decreased BS bases, no wheezes audible HEART: regular distant, S1S2, no rubs. ABD: soft, obese, + mild distention, + tenderness across entire epigastrium, BS inaudible EXT: trace edema bilat. No peripheral/ digital cyanosis, no calf tenderness or palpable cords, distal pulses intact and symmetrical. NEURO: no gross focal motor deficits SKIN: no rashes, warm and dry. LABS: WBC= 7.5 HGB= 8.7 PLTs= 187 K Na= 140 K= 3.7 CL= 100 HCO3= 28 BUN/Cr= 6/0.6 BS= 116 INR 1.5 on 02/23/18. AXR @ 918am: non-specific bowel pattern, no free air seen. CTAP pending IMPRESSION / MAJOR PROBLEMS NOW: 1. Post Colonoscopy with Bowel Perforation 2. Acute on Chronic Disease Anemia 2; GI Blood loss, + gastritis on EGD 3. Chronic A fib on AC with Eliquis 4. h/o CHF with DDysfx, not decompensated now, even after PRBCs. PLAN: 1. Check repeat Coags. 2. IVF hydration. 3. Digoxin to control GR for now if RVR above 130. 4. Cautious narcotic analgesics. 5. Empiric Zosyn, add Flagyl. Dose Zosyn at 4.5gm now. Last dose of Zosyn given at 4AM today. 6. Surgical eval. CCU Objective - Vital Signs / Intake & Output Vital Signs (Last 4 hours): Vital Signs Temp Pulse Resp BP Pulse Ox 02/25/18 09:15 99 F 98 H 24 151/61 H 96 02/25/18 09:00 99 F 99 H 22 147/73 98 02/25/18 08:45 99 F 101 H 23 175/78 H 97 02/25/18 07:48 98.1 F 95 H 18 153/69 H 93 L 02/25/18 07:46 98.3 F 97 H 11 L 153/67 H 93 L Intake and Output (Last 8hrs): Intake & Output 02/24/18 02/25/18 02/25/18 22:59 06:59 14:59 Intake Total 1090 150 Balance 1090 150 Intake: IV 630 150 Intake, Piggyback 100 Oral 360 Other: # Voids Urine, Voided 4 # Bowel Movements 8 - Medications Active Medications: Active Medications Generic Name Dose Route Start Last Admin Trade Name Freq PRN Reason Stop Dose Admin Acetaminophen 650 mg 02/22/18 06:43 02/22/18 06:49 Tylenol 325mg Tab PO 650 mg Q6 PRN Administration Pain, moderate (4-7) Acetaminophen 650 mg 02/23/18 13:10 Tylenol 325mg Tab PO Q6 PRN Fever >100.4 F Albuterol/Ipratropium 3 ml 02/24/18 08:00 02/25/18 10:20 Duoneb 3 Mg/0.5 Mg (3 Ml) Ud INH 3 ml RTID JOSE A Administration Atorvastatin Calcium 40 mg 02/20/18 18:00 02/24/18 17:29 Lipitor PO 40 mg QPM JOSE A Administration Diltiazem HCl 30 mg 02/23/18 13:18 02/25/18 08:59 Cardizem PO Not Given TID JOSE A Furosemide 40 mg 02/20/18 09:00 02/25/18 09:00 Lasix PO Not Given DAILY JOSE A Lactated Ringer's 1,000 mls @ 70 mls/hr 02/22/18 23:00 02/25/18 09:00 Lactated Ringer's IV Not Given .[id number] JOSE A Iron Sucrose 100 mg/ Sodium 105 mls @ 105 mls/hr 02/22/18 11:30 02/24/18 17: 25 Chloride IVPB 105 mls/hr DAILY JOSE A Administration Piperacillin Sod/Tazobactam 100 mls @ 100 mls/hr 02/23/18 16:00 02/25/18 03: 49 Sod 3.375 gm/ Sodium Chloride IVPB 100 mls/hr Q6 JOSE A Administration Protocol Levothyroxine Sodium 175 mcg 02/20/18 06:30 02/25/18 09:01 Synthroid PO Not Given DAILY@0630 JOSE A Losartan Potassium 100 mg 02/20/18 09:00 02/25/18 09:00 Cozaar PO Not Given DAILY JOSE A Nitroglycerin 0.4 mg 02/19/18 18:08 Nitrostat Sl Tab SL Q5MIN PRN Chest pain Olopatadine HCl 1 drop 02/20/18 09:00 02/25/18 09:00 Patanol 0.1% Opht Soln OU Not Given DAILY JOSE A Ondansetron HCl 4 mg 02/20/18 03:49 02/20/18 03:54 Zofran Inj IVP 4 mg Q4 PRN Administration Nausea/Vomiting Pantoprazole Sodium 40 mg 02/20/18 11:15 02/25/18 09:00 Protonix Ec Tab PO Not Given DAILY JOSE A Potassium Chloride 20 meq 02/20/18 18:00 02/24/18 17:28 K-Dur 20 Meq Er Tab PO 20 meq QPM JOSE A Administration Fluticasone/Salmeterol 1 puff 02/20/18 09:00 02/25/18 08:59 Advair Diskus 250/50 IH Not Given Q12 JOSE A - Patient Studies Lab Studies: Microbiology Studies 02/23/18 18:30 Urine Culture - Final Urine,Clean Catch 50-100,000 CFU/ML. MULTIPLE SPECIES. SUGGEST REPEAT SPECIMEN. Lab Studies 02/25/18 02/25/18 02/25/18 Range/Units 05:14 04:20 04:20 WBC 7.5 (4.8-10.8) K/uL RBC 3.16 L (3.80-5.20) Mil/uL Hgb 8.7 L (12.0-16.0) g/dL Hct 27.4 L (34.0-47.0) % MCV 86.6 (81.0-99.0) fl MCH 27.6 (27.0-31.0) pg MCHC 31.8 L (33.0-37.0) g/dL RDW 19.1 H (11.5-14.5) % Plt Count 187 (130-400) K/uL Sodium 140 (132-148) mmol/l Potassium 3.7 (3.6-5.0) MMOL/L Chloride 100 (98-107) mmol/L Carbon Dioxide 28 (22-30) mmol/L Anion Gap 16 (10-20) BUN 6 L (7-17) mg/dl Creatinine 0.6 L (0.7-1.2) mg/dl Est GFR ( Amer) > 60 Est GFR (Non-Af Amer) > 60 POC Glucose (mg/dL) 107 (65-110) mg/dL Random Glucose 116 H (65-105) mg/dL Calcium 8.4 (8.4-10.2) mg/dL 02/24/18 02/24/18 Range/Units 21:25 15:58 WBC (4.8-10.8) K/uL RBC (3.80-5.20) Mil/uL Hgb (12.0-16.0) g/dL Hct (34.0-47.0) % MCV (81.0-99.0) fl MCH (27.0-31.0) pg MCHC (33.0-37.0) g/dL RDW (11.5-14.5) % Plt Count (130-400) K/uL Sodium (132-148) mmol/l Potassium (3.6-5.0) MMOL/L Chloride (98-107) mmol/L Carbon Dioxide (22-30) mmol/L Anion Gap (10-20) BUN (7-17) mg/dl Creatinine (0.7-1.2) mg/dl Est GFR ( Amer) Est GFR (Non-Af Amer) POC Glucose (mg/dL) 116 H 206 H (65-110) mg/dL Random Glucose (65-105) mg/dL Calcium (8.4-10.2) mg/dL Laboratory Results - last 24 hr 02/24/18 02/24/18 02/25/18 15:58 21:25 04:20 WBC 7.5 RBC 3.16 L Hgb 8.7 L Hct 27.4 L MCV 86.6 MCH 27.6 MCHC 31.8 L RDW 19.1 H Plt Count 187 Sodium Potassium Chloride Carbon Dioxide Anion Gap BUN Creatinine Est GFR ( Amer) Est GFR (Non-Af Amer) POC Glucose (mg/dL) 206 H 116 H Random Glucose Calcium 02/25/18 02/25/18 04:20 05:14 WBC RBC Hgb Hct MCV MCH MCHC RDW Plt Count Sodium 140 Potassium 3.7 Chloride 100 Carbon Dioxide 28 Anion Gap 16 BUN 6 L Creatinine 0.6 L Est GFR ( Amer) > 60 Est GFR (Non-Af Amer) > 60 POC Glucose (mg/dL) 107 Random Glucose 116 H Calcium 8.4 Fingerstick Blood Sugar Results: 107 Critical Care Progress Note - Nutrition Nutrition: Nutrition Category Date Time Status Heart Healthy Diet [DIET] Diets 02/25/18 Breakfast Active
[2018-02-25] MEDS: metroNIDAZOLE 500mg/100ml NS 100 ML IVPB SCH (12:19)
[2018-02-25] MEDS: Piperacillin/Tazobact 4.5 GM in Sodium Chloride 0.9% 100 ML IVPB SCH ×2 (12:20→21:14)
[2018-02-25] MEDS ORDERED: Lidocaine 2% Jelly (5 ml) TOP ONE (12:32)
[2018-02-25 12:34] LABS: PROTHROMBIN TIME 14.9 Seconds (9.8-13.1)
[2018-02-25 12:35] LABS: INR 1.3 (0.9-1.2)
[2018-02-25] MEDS ORDERED: Rocuronium 10 mg/ml (5 ml) ONE ×2 (12:35→14:45)
[2018-02-25] MEDS ORDERED: Lactated Ringer's 1,000 ML IV ONE (12:50)
[2018-02-25] MEDS ORDERED: metroNIDAZOLE 500mg/100ml NS IVPB ONE ×2 (13:00→13:30)
[2018-02-25] MEDS ORDERED: Sodium Chloride 0.9% 100 ML IV ONE (13:11)
[2018-02-25] MEDS ORDERED: Sodium Chloride 0.9% 500 ML IV ONE (13:20)
--- NOTE | 2018-02-25 14:05 | CT ---
PROCEDURE: CT Abdomen and Pelvis without intravenous contrast HISTORY: Abdominal pain COMPARISON: 10/24/2017. TECHNIQUE: CT scan of the abdomen and pelvis was performed without administration of intravenous contrast. Oral contrast was not administered. Coronal and sagittal reformatted images were obtained. Radiation dose: Total exam DLP = Total exam DLP = 1003.01 MGy-cm. This CT exam was performed using one or more of the following dose reduction techniques: Automated exposure control, adjustment of the mA and/or kV according to patient size, and/or use of iterative reconstruction technique. FINDINGS: LOWER THORAX: Small right and trace left pleural effusions with compressive atelectasis in the lung bases. Mild cardiomegaly with small pericardial effusion. LIVER: Normal in size. No gross lesion or ductal dilatation. GALLBLADDER AND BILE DUCTS: Surgically absent. PANCREAS: Mild diffuse atrophy. SPLEEN: Normal in size. ADRENALS: No discrete nodule. KIDNEYS AND URETERS: Both kidneys are normal in size without hydronephrosis. There is a 3 mm nonobstructing stone in the upper pole of the left kidney. There is a 2.5 x 2.7 cm exophytic simple cyst in the upper pole of the left kidney. VASCULATURE: There are advanced atherosclerotic aortoiliac calcifications. No aortic aneurysm. BOWEL: The small bowel loops are normal in caliber. There is left colonic diverticulosis. There is apparent mild mural thickening of the left colon. APPENDIX: Normal in caliber. PERITONEUM: There is small amount of free intraperitoneal air anterior to the liver. There is small amount of free fluid in the pelvis and bilateral lower pericolic gutters. LYMPH NODES: Unremarkable. No enlarged lymph nodes. BLADDER: Unremarkable. REPRODUCTIVE: Unremarkable. BONES: No acute fracture. Multilevel degenerative changes in the spine. OTHER FINDINGS: There is diffuse anasarca. IMPRESSION: 1. Status post colonoscopy, pneumo pearly [place] on with small amount of free air anterior to the liver. 2. Small amount of free fluid in the pelvis and bilateral lower paracolic gutters. 3. Left colonic diverticulosis. Findings were discussed with the clinical team by Dr. Hermes Marquez on 02/25/2018 after the scan was performed.
[2018-02-25] MEDS ORDERED: Desflurane Inhalation Anesthetic Liq (240 ml) ONE (14:35)
--- NOTE | 2018-02-25 17:28 | PCM.SURG1 ---
Surgeon's Initial Post Op Note - Surgeon's Notes Surgeon: Dr. Montaño Test Boring Crew Chief: Dr. Kinney PGY2, Dr. Ramirez PGY1, Dr. Edmond DPM Type of Anesthesia: General Endo Pre-Operative Diagnosis: Bowel Perforation Operative Findings: See operative Dictation Post-Operative Diagnosis: Bowel Perforation Operation Performed: Exploratory Laparotomy, Sigmoid colon resection, Sigmoid colostomy Specimen/Specimens Removed: Sigmoid colon section Estimated Blood Loss: EBL {In ML}: 700 Blood Products Given: PRBC, FFP Drains Used: No Drains Post-Op Condition: Fair Date of Surgery/Procedure: 02/25/18 Time of Surgery/Procedure: 17:28
--- NOTE | 2018-02-25 17:36 | CP.PCM.CON ---
History of Present Illness - History of Present Illness History of Present Illness: General Surgery Consult Note for Dr. Montaño This is an 87F with a PMH of COPD on O2 at home, CHF, HTN, CAD, CVA, Hypothyroid , Diverticulosis, Acute blood loss anemia. We were consulted today due to a bowel perforation during C-Scope. After scope pt had abdominal pain out of proportion to exam. CT scan showed free air. Patient was disoriented and not answering questions appropriately during exam. PMH : See above PSH: Open Hysterectomy, back surgery ALL: Lyrica Review of Systems - Review of Systems Systems not reviewed;Unavailable: Acuity of Condition, Altered Mental Status Past Patient History - Infectious Disease Hx of Infectious Diseases: None - Past Medical History & Family History Past Medical History?: Yes - Past Social History Smoking Status: Former Smoker - CARDIAC Hx Cardiac Disorders: Yes Hx Congestive Heart Failure: Yes Hx Hypertension: Yes - PULMONARY Hx Chronic Obstructive Pulmonary Disease (COPD): Yes - NEUROLOGICAL Hx Neurological Disorder: No - HEENT Hx HEENT Problems: No - RENAL Hx Chronic Kidney Disease: No - ENDOCRINE/METABOLIC Hx Diabetes Mellitus Type 2: Yes Hx Hypothyroidism: Yes - HEMATOLOGICAL/ONCOLOGICAL Hx AIDS: No Hx Human Immunodeficiency Virus (HIV): No - INTEGUMENTARY Hx Dermatological Problems: No - MUSCULOSKELETAL/RHEUMATOLOGICAL Hx Arthritis: Yes Hx Falls: Yes (per pt "many years ago") - GASTROINTESTINAL Hx Diverticulitis: Yes - GENITOURINARY/GYNECOLOGICAL Hx Genitourinary Disorders: No - PSYCHIATRIC Hx Depression: Yes - SURGICAL HISTORY Hx Cholecystectomy: Yes Hx Coronary Artery Bypass Graft: No - ANESTHESIA Hx Anesthesia: Yes Hx Anesthesia Reactions: No Hx Malignant Hyperthermia: No Meds Allergies/Adverse Reactions: Allergies Allergy/AdvReac Type Severity Reaction Status Date / Time No Known Allergies Allergy Verified 01/22/18 12:12 - Medications Medications: Current Medications Acetaminophen (Tylenol 325mg Tab) 650 mg PO Q6 PRN PRN Reason: Pain, moderate (4-7) Last Admin: 02/22/18 06:49 Dose: 650 mg Acetaminophen (Tylenol 325mg Tab) 650 mg PO Q6 PRN PRN Reason: Fever >100.4 F Albuterol/Ipratropium (Duoneb 3 Mg/0.5 Mg (3 Ml) Ud) 3 ml INH RTID JOSE A Last Admin: 02/25/18 10:20 Dose: 3 ml Atorvastatin Calcium (Lipitor) 40 mg PO QPM [facility] Last Admin: 02/24/18 17:29 Dose: 40 mg Diltiazem HCl (Cardizem) 30 mg PO TID [facility] Last Admin: 02/25/18 08:59 Dose: Not Given Furosemide (Lasix) 40 mg PO DAILY [facility] Last Admin: 02/25/18 09:00 Dose: Not Given Lactated Ringer's (Lactated Ringer's) 1,000 mls @ 70 mls/hr IV .[id number] [facility] Last Admin: 02/25/18 09:00 Dose: Not Given Iron Sucrose 100 mg/ Sodium (Chloride) 105 mls @ 105 mls/hr IVPB DAILY [facility] Last Admin: 02/24/18 17:25 Dose: 105 mls/hr Piperacillin Sod/Tazobactam (Sod 4.5 gm/ Sodium Chloride) 100 mls @ 100 mls/hr IVPB Q6 [facility] PRN Reason: Protocol Last Admin: 02/25/18 12:20 Dose: 100 mls/hr Metronidazole (Flagyl 500mg/100ml Ns) 100 mls @ 100 mls/hr IVPB Q8 [facility] PRN Reason: Protocol Last Admin: 02/25/18 12:19 Dose: 100 mls/hr Levothyroxine Sodium (Synthroid) 175 mcg PO DAILY@0630 [facility] Last Admin: 02/25/18 09:01 Dose: Not Given Lorazepam (Ativan) 1 mg IVP Q4 PRN PRN Reason: Agitation Losartan Potassium (Cozaar) 100 mg PO DAILY [facility] Last Admin: 02/25/18 09:00 Dose: Not Given Morphine Sulfate (Morphine) 8 mg IVP Q4 PRN PRN Reason: Pain, moderate (4-7) Nitroglycerin (Nitrostat Sl Tab) 0.4 mg SL Q5MIN PRN PRN Reason: Chest pain Olopatadine HCl (Patanol 0.1% Opht Soln) 1 drop OU DAILY [facility] Last Admin: 02/25/18 09:00 Dose: Not Given Ondansetron HCl (Zofran Inj) 4 mg IVP Q4 PRN PRN Reason: Nausea/Vomiting Last Admin: 02/20/18 03:54 Dose: 4 mg Pantoprazole Sodium (Protonix Ec Tab) 40 mg PO DAILY [facility] Last Admin: 02/25/18 09:00 Dose: Not Given Potassium Chloride (K-Dur 20 Meq Er Tab) 20 meq PO QPM JOSE A Last Admin: 02/24/18 17:28 Dose: 20 meq Fluticasone/Salmeterol (Advair Diskus 250/50) 1 puff IH Q12 JOSE A Last Admin: 02/25/18 08:59 Dose: Not Given Physical Exam - Constitutional Appears: Toxic - Head Exam Head Exam: ATRAUMATIC, NORMOCEPHALIC - Eye Exam Eye Exam: EOMI - ENT Exam ENT Exam: Mucous Membranes Moist - Respiratory Exam Respiratory Exam: NORMAL BREATHING PATTERN - Cardiovascular Exam Cardiovascular Exam: +S1, +S2 - GI/Abdominal Exam GI & Abdominal Exam: Diminished Bowel Sounds, Distended, Firm, Guarding, Tenderness - Rectal Exam Rectal Exam: absent: Bloody Stool - Skin Skin Exam: Mottled Results - Vital Signs Recent Vital Signs: Last Vital Signs Temp 97.6 F 02/25/18 12:00 Pulse 123 H 02/25/18 12:00 Resp 24 02/25/18 12:00 BP 178/88 H 02/25/18 12:00 Pulse Ox 99 02/25/18 12:00 - Labs Result Diagrams: 02/25/18 04:20 02/25/18 04:20 Labs: Laboratory Results - last 24 hr 02/23/18 02/24/18 02/24/18 14:18 15:58 21:25 WBC RBC Hgb Hct MCV MCH MCHC RDW Plt Count PT INR Sodium Potassium Chloride Carbon Dioxide Anion Gap BUN Creatinine Est GFR ( Amer) Est GFR (Non-Af Amer) POC Glucose (mg/dL) 206 H 116 H Random Glucose Calcium Blood Type O NEGATIVE Antibody Screen Positive Antibody Identification Anti K Crossmatch See Detail BBK History Checked Patient has bt 02/25/18 02/25/18 02/25/18 04:20 04:20 05:14 WBC 7.5 RBC 3.16 L Hgb 8.7 L Hct 27.4 L MCV 86.6 MCH 27.6 MCHC 31.8 L RDW 19.1 H Plt Count 187 PT INR Sodium 140 Potassium 3.7 Chloride 100 Carbon Dioxide 28 Anion Gap 16 BUN 6 L Creatinine 0.6 L Est GFR ( Amer) > 60 Est GFR (Non-Af Amer) > 60 POC Glucose (mg/dL) 107 Random Glucose 116 H Calcium 8.4 Blood Type Antibody Screen Antibody Identification Crossmatch BBK History Checked 02/25/18 02/25/18 11:57 12:10 WBC RBC Hgb Hct MCV MCH MCHC RDW Plt Count PT 14.9 H INR 1.3 H Sodium Potassium Chloride Carbon Dioxide Anion Gap BUN Creatinine Est GFR ( Amer) Est GFR (Non-Af Amer) POC Glucose (mg/dL) 145 H Random Glucose Calcium Blood Type Antibody Screen Antibody Identification Crossmatch BBK History Checked Assessment & Plan - Assessment and Plan (Free Text) Assessment: 87F with Bowel Perforation OR today for exlap D/W Dr. Danyel Kinney PGY2
[2018-02-25] MEDS ORDERED: Digoxin 500 mcg/2ml (0.5 mg/2ml) Inj IVP ONE (17:38)
--- NOTE | 2018-02-25 17:41 | CP.CCUPN ---
CCU Subjective - Physician Review Subjective (Free Text): Returned Back to ICU post-op on MV support as per Anesthesiologist. Breathing 12 on AC 12, TV 450ml, 40% PEEP5 with SPO2 100. R IJV TLC and Left radial A line in place, approx. 800ml EBL with 1000ml fluid input intra-op with 2 units PRBCs and 2 units FFP. Remains in A Fib at 127/min, BP 126 systolic via A line. CXR ordered and pending, Ativan and Morphine for analog-sedation purposes, Digoxin for HR control if needed. IVFs ordered, no clinical CHF decompensation evident. As patient emerges from sedation and anesthesia over the next several hours, will re-asses for extubation. ABG pending on current MV settings.
--- NOTE | 2018-02-25 17:55 | CP.PCM.PN ---
Subjective - Date & Time of Evaluation Date of Evaluation: 02/25/18 Time of Evaluation: 17:53 - Subjective Subjective: Patient seen post surgery with Dr. Montaño. Will be kept on ventilator tonight. Objective - Vital Signs/Intake and Output Vital Signs (last 24 hours): Temp Pulse Resp BP Pulse Ox 98 F 143 H 14 132/101 H 98 02/25/18 17:35 02/25/18 17:35 02/25/18 17:35 02/25/18 17:35 02/25/18 17:35 Intake and Output: 02/25/18 02/25/18 06:59 18:59 Intake Total 1090 3751 Output Total 400 Balance 1090 3351 - Medications Medications: Current Medications Acetaminophen (Tylenol 325mg Tab) 650 mg PO Q6 PRN PRN Reason: Pain, moderate (4-7) Last Admin: 02/22/18 06:49 Dose: 650 mg Acetaminophen (Tylenol 325mg Tab) 650 mg PO Q6 PRN PRN Reason: Fever >100.4 F Albuterol/Ipratropium (Duoneb 3 Mg/0.5 Mg (3 Ml) Ud) 3 ml INH RQID [facility] Atorvastatin Calcium (Lipitor) 40 mg PO QPM [facility] Last Admin: 02/24/18 17:29 Dose: 40 mg Diltiazem HCl (Cardizem) 30 mg PO TID [facility] Last Admin: 02/25/18 08:59 Dose: Not Given Furosemide (Lasix) 40 mg PO DAILY [facility] Last Admin: 02/25/18 09:00 Dose: Not Given Iron Sucrose 100 mg/ Sodium (Chloride) 105 mls @ 105 mls/hr IVPB DAILY [facility] Last Admin: 02/24/18 17:25 Dose: 105 mls/hr Piperacillin Sod/Tazobactam (Sod 4.5 gm/ Sodium Chloride) 100 mls @ 100 mls/hr IVPB Q6 [facility] A PRN Reason: Protocol Last Admin: 02/25/18 12:20 Dose: 100 mls/hr Metronidazole (Flagyl 500mg/100ml Ns) 100 mls @ 100 mls/hr IVPB Q8 JOSE A PRN Reason: Protocol Last Admin: 02/25/18 12:19 Dose: 100 mls/hr Lactated Ringer's (Lactated Ringer's) 1,000 mls @ 150 mls/hr IV .Q6H40M [facility] Levothyroxine Sodium (Synthroid) 175 mcg PO DAILY@0630 [facility] Last Admin: 02/25/18 09:01 Dose: Not Given Lorazepam (Ativan) 1 mg IVP Q4 PRN PRN Reason: Agitation Losartan Potassium (Cozaar) 100 mg PO DAILY [facility] Last Admin: 02/25/18 09:00 Dose: Not Given Morphine Sulfate (Morphine) 8 mg IVP Q4 PRN PRN Reason: Pain, moderate (4-7) Nitroglycerin (Nitrostat Sl Tab) 0.4 mg SL Q5MIN PRN PRN Reason: Chest pain Olopatadine HCl (Patanol 0.1% Opht Soln) 1 drop OU DAILY [facility] Last Admin: 02/25/18 09:00 Dose: Not Given Ondansetron HCl (Zofran Inj) 4 mg IVP Q4 PRN PRN Reason: Nausea/Vomiting Last Admin: 02/20/18 03:54 Dose: 4 mg Pantoprazole Sodium (Protonix Ec Tab) 40 mg PO DAILY [facility] Last Admin: 02/25/18 09:00 Dose: Not Given Potassium Chloride (K-Dur 20 Meq Er Tab) 20 meq PO QPM [facility] Last Admin: 02/24/18 17:28 Dose: 20 meq Fluticasone/Salmeterol (Advair Diskus 250/50) 1 puff IH Q12 [facility] Last Admin: 02/25/18 08:59 Dose: Not Given - Labs Labs: 02/25/18 04:20 02/25/18 04:20 PT 14.9 Seconds (9.8-13.1) H 02/25/18 12:10 INR 1.3 (0.9-1.2) H 02/25/18 12:10 APTT 34.1 Seconds (25.6-37.1) 02/19/18 19:00 - Head Exam Head Exam: ATRAUMATIC - ENT Exam ENT Exam: Normal Exam - Neck Exam Neck Exam: Normal Inspection - Respiratory Exam Respiratory Exam: NORMAL BREATHING PATTERN - Cardiovascular Exam Cardiovascular Exam: +S1, +S2 - GI/Abdominal Exam GI & Abdominal Exam: Distended Assessment and Plan (1) Anemia Status: Chronic (2) Perforation of colon Assessment & Plan: Patient found to have a colon perforation in a redundant fixated portion of sigmoid. Due to severe adhesions and fibrosis involving this portion of colon a colostomy was was done with the potential for revision if desired. Discussed with family in the presence of the surgical team. Status: Acute
[2018-02-25 18:04] LABS: ABG ALLEN TEST YES; ARTERIAL BLOOD GAS HCO3 26.2 mmol/L (21-28); ARTERIAL BLOOD GAS O2 SAT 97.5 % (95-98); ARTERIAL BLOOD GAS PCO2 42 mm/Hg (35-45); ARTERIAL BLOOD GAS PH 7.41 (7.35-7.45); ARTERIAL BLOOD GAS PO2 82 mm/Hg (80-100); ARTERIAL BLOOD GAS TCO2 27.9 mmol/L (22-28)
--- NOTE | 2018-02-25 18:37 | RAD ---
HISTORY: post-op on MV, s/p TLC R-IJV COMPARISON: No prior. FINDINGS: Endotracheal tube terminates 8 mm proximal to the avinash. The nasogastric tube terminates in the stomach. The right IJV line terminates in the SVC. LUNGS: The lungs are well inflated. There is severe pulmonary venous congestion. PLEURA: Small pleural effusions, no pneumothorax apparent. CARDIOVASCULAR: Normal. OSSEOUS STRUCTURES: No significant abnormalities. VISUALIZED UPPER ABDOMEN: Normal. OTHER FINDINGS: None. IMPRESSION: Endotracheal tube terminates 8 mm proximal to the avinash. Nasogastric tube terminates in the stomach. The right IJV line terminates in the SVC. Mild pulmonary venous congestion, small pleural effusions.
--- NOTE | 2018-02-25 19:40 | CP.PCM.PN ---
Subjective - Date & Time of Evaluation Date of Evaluation: 02/25/18 Time of Evaluation: 13:00 - Subjective Subjective: Patient was seen and examined after colonoscopy today .Complaining of severe intractable abdominal pain mostly on the upper part of abdomen. Abdominal distention noted on the epigastric area mostly with tenderness. Flat Xray post colonoscopy showed no free air.Patient complaining of severe pain,unable to lye flat ,feeling nauseated, unable to urinate , complaining of SOB. Morphine IV 6 mg given stat. NGT placed and placement verified and patient accompanied with nurse for stat CT abdomen and pelvis with no contrast Ct read immediately by radiologist showed free air and viscus perforation . Surgery consulted stat, GI Dr. Calvert informed Discussed with manager business continuity Dr Grace and patient transferred to ICU Family called and son informed about new findings and changes in patient's condition taken to OR today for exploratory laparatomy and underwent sigmoid resection and sigmoid colostomy Objective - Vital Signs/Intake and Output Vital Signs (last 24 hours): Temp Pulse Resp BP Pulse Ox 98 F 138 H 14 114/55 L 100 02/25/18 18:37 02/25/18 18:37 02/25/18 18:37 02/25/18 18:21 02/25/18 18:37 Intake and Output: 02/25/18 02/26/18 18:59 06:59 Intake Total 4351 Output Total 850 Balance 3501 - Medications Medications: Current Medications Acetaminophen (Tylenol 325mg Tab) 650 mg PO Q6 PRN PRN Reason: Pain, moderate (4-7) Last Admin: 02/22/18 06:49 Dose: 650 mg Acetaminophen (Tylenol 325mg Tab) 650 mg PO Q6 PRN PRN Reason: Fever >100.4 F Albuterol/Ipratropium (Duoneb 3 Mg/0.5 Mg (3 Ml) Ud) 3 ml INH RQID [facility] Last Admin: 02/25/18 19:19 Dose: 3 ml Atorvastatin Calcium (Lipitor) 40 mg PO QPM [facility] Last Admin: 02/24/18 17:29 Dose: 40 mg Diltiazem HCl (Cardizem) 30 mg PO TID [facility] Last Admin: 02/25/18 08:59 Dose: Not Given Furosemide (Lasix) 40 mg PO DAILY [facility] Last Admin: 02/25/18 09:00 Dose: Not Given Iron Sucrose 100 mg/ Sodium (Chloride) 105 mls @ 105 mls/hr IVPB DAILY [facility] Last Admin: 02/24/18 17:25 Dose: 105 mls/hr Piperacillin Sod/Tazobactam (Sod 4.5 gm/ Sodium Chloride) 100 mls @ 100 mls/hr IVPB Q6 [facility] A PRN Reason: Protocol Last Admin: 02/25/18 12:20 Dose: 100 mls/hr Metronidazole (Flagyl 500mg/100ml Ns) 100 mls @ 100 mls/hr IVPB Q8 [facility] A PRN Reason: Protocol Last Admin: 02/25/18 12:19 Dose: 100 mls/hr Lactated Ringer's (Lactated Ringer's) 1,000 mls @ 150 mls/hr IV .Q6H40M [facility] Levothyroxine Sodium (Synthroid) 175 mcg PO DAILY@0630 [facility] Last Admin: 02/25/18 09:01 Dose: Not Given Lorazepam (Ativan) 1 mg IVP Q4 PRN PRN Reason: Agitation Losartan Potassium (Cozaar) 100 mg PO DAILY [facility] Last Admin: 02/25/18 09:00 Dose: Not Given Morphine Sulfate (Morphine) 8 mg IVP Q4 PRN PRN Reason: Pain, moderate (4-7) Nitroglycerin (Nitrostat Sl Tab) 0.4 mg SL Q5MIN PRN PRN Reason: Chest pain Olopatadine HCl (Patanol 0.1% Opht Soln) 1 drop OU DAILY [facility] Last Admin: 02/25/18 09:00 Dose: Not Given Ondansetron HCl (Zofran Inj) 4 mg IVP Q4 PRN PRN Reason: Nausea/Vomiting Last Admin: 02/20/18 03:54 Dose: 4 mg Pantoprazole Sodium (Protonix Ec Tab) 40 mg PO DAILY [facility] Last Admin: 02/25/18 09:00 Dose: Not Given Potassium Chloride (K-Dur 20 Meq Er Tab) 20 meq PO QPM [facility] Last Admin: 02/24/18 17:28 Dose: 20 meq Fluticasone/Salmeterol (Advair Diskus 250/50) 1 puff IH Q12 [facility] Last Admin: 02/25/18 08:59 Dose: Not Given - Labs Labs: 02/25/18 04:20 02/25/18 04:20 PT 14.9 Seconds (9.8-13.1) H 02/25/18 12:10 INR 1.3 (0.9-1.2) H 02/25/18 12:10 APTT 34.1 Seconds (25.6-37.1) 02/19/18 19:00 - Constitutional Appears: In Acute Distress, Chronically Ill - Head Exam Head Exam: NORMOCEPHALIC - Eye Exam Eye Exam: PERRL - ENT Exam ENT Exam: Mucous Membranes Dry, Normal Exam - Neck Exam Neck Exam: Normal Inspection - Respiratory Exam Respiratory Exam: Accessory Muscle Use, Decreased Breath Sounds (bibasilar ), Prolonged Expiratory Phase, Wheezes, Respiratory Distress - Cardiovascular Exam Cardiovascular Exam: Tachycardia, Irregular Rhythm - GI/Abdominal Exam GI & Abdominal Exam: Distended, Guarding, Tenderness, Rebound Additional comments: no bowel sounds - Rectal Exam Rectal Exam: Deferred - Extremities Exam Extremities Exam: Normal Inspection. absent: Calf Tenderness, Pedal Edema - Back Exam Back Exam: NORMAL INSPECTION - Neurological Exam Neurological Exam: Alert, Awake. absent: CN II-XII Intact - Psychiatric Exam Psychiatric exam: Anxious - Skin Skin Exam: Dry, Pallor, Warm Assessment and Plan - Assessment and Plan (Free Text) Assessment: 87 year old female with a past medical history significant for coronary artery disease, essential hypertension, atrial fibrillation (was on Eliquis starting 1 month ago), congestive heart failure, type 2 DM, COPD, diverticulitis, sleep apnea, and hypothyroidism, admitted to ICU for upper GI bleed. Patient's hgb found to be 5.2 on admission . She was transfused 3 unit PRBC , GI consulted and underwent EGD that showed no active bleed. Eliquis on hold since admission.No more bleeding episodes noted since admission . She was started empirically on Zosyn after spiking fever 4/16 and being somewhat sleepy went for colonoscopy today by Dr. Calvert that showed diverticulosis, no active bleed. Post colonoscopy developed severe intractable abdominal pain secondary to colon perforation . Taken to OR and underwent exploratory laparatomy with sigmoid resection and sigmoid colostomy maintained intubated post op 1. Colon perforation post colonoscopy s/p exploratory laparatomy with sigmoid resection and colostomy Surgery on board transfused 2 PRBC and 2 FFP in OR will keep intubated post op and monitor in ICU Pain management , IVF On Zosyn IV , started Flagyl will try to wean off vent as soon as possible 2. Acute blood loss anemia secondary to GI bleed with melena Hgb 5.2 on admission s/p 6 units PRBC transfusion Hold Eliquis CVhange Protonix to IV cont Venofer IV GI following . EGD and colonoscopy showed no active bleeding 3. Diastolic chronic CHF (congestive heart failure), without exacerbation stable hold Lasix 40mg , Metoprolol and Losartan for now ECHO: normal LV function on previous admission. 4. COPD (chronic obstructive pulmonary disease), mild exacerbation mild wheeze today Dr Otto consulted Intubated for surgery and kept intubated post op will wean off and extubate as soon as possible Continue Duonebs 5. CAD (coronary artery disease) Chronic Holding ASA and Eliquis due to GI bleed losartan < BB on hold 6. Hypertension Hold po BP meds monitor closely 7. Atrial fibrillation Chronic uncontrolled today with RVR Digoxin IV given Eliquis on hold Continue cardizem 8. Diabetes mellitus, type II Chronic Insulin sliding scale. metformin on hol d 9. Hypothyroidism Chronic on levothyroxine 175mcg PO daily ( on hold for now ) 10. DVT prophylaxis SCDs, no anticoag sec to GIB
[2018-02-25 20:40] LABS: BASO % 0.3 % (0.0-2.0); EOS % 0.3 % (0.0-4.0); LYMPH # 0.4 K/uL (1.0-4.3); LYMPH % 7.3 % (20.0-40.0); MEAN CELL VOLUME 88.2 fl (81.0-99.0); MEAN CORPUSCULAR HEMOGLOBIN 28.7 pg (27.0-31.0); MEAN CORPUSCULAR HGB CONC 32.5 g/dL (33.0-37.0); MEAN PLATELET VOLUME 8.6 fl (7.2-11.7); MONO # 0.2 K/uL (0.0-0.8); NEUT % 88.1 % (50.0-75.0); NRBC % 0.1 % (0.0-0.0); PLATELET COUNT 202 K/uL (130-400); RBC 3.83 Mil/uL (3.80-5.20); RED CELL DISTRIBUTION WIDTH 18.6 % (11.5-14.5); WHITE BLOOD COUNT 5.7 K/uL (4.8-10.8)
[2018-02-25 20:54] LABS: BLOOD UREA NITROGEN 8 mg/dl (7-17); GFR AFRICAN-AMERICAN > 60; GFR NON-AFRICAN AMERICAN > 60
[2018-02-25 20:55] LABS: ALB/GLOB RATIO 0.9 (1.0-2.1); ALBUMIN 2.7 g/dL (3.5-5.0); ALT/SGPT 27 U/L (9-52); AST/SGOT 28 U/L (14-36); CALCIUM 7.6 mg/dL (8.4-10.2)
[2018-02-25 21:53] LABS: BANDS 6 % (0-2); LYMPHOCYTE 12 % (20-50); MONOCYTE 6 % (0-10); NEUTROPHIL 76 % (42-75); TOTAL CELLS COUNTED 100
[2018-02-25 21:54] LABS: ANISOCYTOSIS SLIGHT; HYPOCHROMIC SLIGHT; PLATELET ESTIMATE NORMAL (NORMAL); TEARDROP CELLS SLIGHT
[2018-02-26] MEDS: metroNIDAZOLE 500mg/100ml NS 100 ML IVPB SCH ×4 (00:03→23:59)
[2018-02-26] MEDS: Piperacillin/Tazobact 4.5 GM in Sodium Chloride 0.9% 100 ML IVPB SCH ×4 (04:06→22:27)
[2018-02-26 05:21] LABS: ABG ALLEN TEST YES; ARTERIAL BLOOD GAS HCO3 26.6 mmol/L (21-28); ARTERIAL BLOOD GAS O2 SAT 91.4 % (95-98); ARTERIAL BLOOD GAS PCO2 38 mm/Hg (35-45); ARTERIAL BLOOD GAS PH 7.45 (7.35-7.45); ARTERIAL BLOOD GAS PO2 56 mm/Hg (80-100); ARTERIAL BLOOD GAS TCO2 27.6 mmol/L (22-28)
[2018-02-26 05:28] LABS: BASO % 0.1 % (0.0-2.0); EOS % 0.1 % (0.0-4.0); HEMOGLOBIN 9.5 g/dL (12.0-16.0); LYMPH # 0.5 K/uL (1.0-4.3); LYMPH % 3.9 % (20.0-40.0); MEAN CELL VOLUME 89.2 fl (81.0-99.0); MEAN CORPUSCULAR HEMOGLOBIN 28.3 pg (27.0-31.0); MEAN CORPUSCULAR HGB CONC 31.7 g/dL (33.0-37.0); MEAN PLATELET VOLUME 9.2 fl (7.2-11.7); MONO # 0.5 K/uL (0.0-0.8); MONO % 3.8 % (0.0-10.0); NEUT # 12.7 K/uL (1.8-7.0); NEUT % 92.1 % (50.0-75.0); RBC 3.37 Mil/uL (3.80-5.20); RED CELL DISTRIBUTION WIDTH 18.4 % (11.5-14.5); WHITE BLOOD COUNT 13.8 K/uL (4.8-10.8)
[2018-02-26 05:40] LABS: PARTIAL THROMBOPLASTIN TIME 35.9 Seconds (25.6-37.1); PROTHROMBIN TIME 22.5 Seconds (9.8-13.1)
[2018-02-26 05:47] LABS: ALB/GLOB RATIO 0.9 (1.0-2.1); ALBUMIN 2.3 g/dL (3.5-5.0); ALT/SGPT 29 U/L (9-52); AST/SGOT 29 U/L (14-36); BLOOD UREA NITROGEN 11 mg/dl (7-17); CALCIUM 7.5 mg/dL (8.4-10.2); GFR AFRICAN-AMERICAN > 60; GFR NON-AFRICAN AMERICAN > 60
[2018-02-26] MEDS: Lactated Ringer's 1,000 ML IV SCH ×2 (06:19→19:30)
--- NOTE | 2018-02-26 07:36 | CP.CCUPN ---
CCU Subjective - Physician Review Subjective (Free Text): Awake and agitated on MV, getting Ativan and Morphine prn; has pulled out L Radial A line. Other VS and I/Os reviewed. HR variable between 110- 120 in A Fib, SBP 120s. Given one dose of Digoxin 0.5mg last evening post-op. I/Os= 5501/850 last 12- 24H. ROS: No other pertinent negs or positives on 10+ system review obtainable due to present agitation. PMSFH: All other Nursing and physician documentation reviewed to date; no new pertinent info noted relevant to current medical problems. EXAM- HEENT: no icterus, no gaze preference, pupils 3 mm equal and sluggishly reactive , no icterus NECK: No JVD, supple, carotids equal upstroke bilat/no bruits CHEST: decreased BS bases, no wheezes audible HEART: regular distant, S1S2, no rubs. ABD: soft, obese, + mild distention, + tenderness across entire epigastrium, BS inaudible EXT: trace edema bilat. No peripheral/ digital cyanosis, no calf tenderness or palpable cords, distal pulses intact and symmetrical. NEURO: no gross focal motor deficits SKIN: no rashes, warm and dry. LABS: 7.45/38/56 Lactate= 2.1 WBC= 13.8 HGB= 9.5 PLTs= 163 K Na= 139 K= 4.1 CL= 104 HCO3= 22 BUN/Cr= 11/0.8 BS= 147 INR = 2.0 CXR: ETT low near avinash, bibasilar haziness, Left hemidiaphragm not well visualized (my interp). IMPRESSION / MAJOR PROBLEMS NOW: 1. Post Colonoscopy with Bowel Perforation 2. Acute on Chronic Disease Anemia 2; GI Blood loss, + gastritis on EGD 3. Chronic A fib on AC with Eliquis 4. h/o CHF with DDysfx, not decompensated now, even after PRBCs. PLAN: 1. Stop all sedation, careful narcotics for pain control. 2. CPAP 5, PS 10, 50% SBT trial as tolerated towards extubation today. 3. Watch fluid balance, h/o CHF with DDysfx; Lasix prn, decrease IVFs if hemodynamics stable. 4. More Digoxin if needed for VR control. 5. Lactates normalized. Empiric abx coverage. CCU Objective - Vital Signs / Intake & Output Vital Signs (Last 4 hours): Vital Signs Temp Pulse Resp BP Pulse Ox 02/26/18 07:04 110 H 12 91/30 L 97 02/26/18 04:00 99.3 F 122 H 14 124/44 L 93 L Intake and Output (Last 8hrs): Intake & Output 02/25/18 02/26/18 02/26/18 22:59 06:59 14:59 Intake Total 1275 800 300 Output Total 850 425 Balance 425 800 -125 Intake: IV 150 600 300 Intake, Piggyback 200 200 Blood Product 925 Output: Drainage 50 Right Abdomen 50 Urine 800 250 Urethral (Grijalva) 400 250 Other 175
[2018-02-26] MEDS: Albuterol-Ipratrop 3 mg / 0.5 (3 ml) UD INH SCH ×4 (07:49→20:04)
--- NOTE | 2018-02-26 07:54 | CP.PCM.PN ---
Subjective - Date & Time of Evaluation Date of Evaluation: 02/26/18 Time of Evaluation: 07:30 - Subjective Subjective: Patient seen and examined bedside. Post op day 1 post sigmoid resection with colostomy.Kept intubated overnight MV PRVC /AC mode 12/500/5/60% with ABG 38/56/ 26/7.4 Sedated with Morphine PRN for pain makes facial grimaces to name calling and during examination Afib on monitor rate uncontrolled 119 Tmax 100.7 last 12 hours BP 106/45 WBC 13.8 Hgb 9.5 Plt 163 K INR 2 I/O 5501/850 Objective - Vital Signs/Intake and Output Vital Signs (last 24 hours): Temp Pulse Resp BP Pulse Ox 99.3 F 110 H 12 91/30 L 97 02/26/18 04:00 02/26/18 07:04 02/26/18 07:04 02/26/18 07:04 02/26/18 07:04 Intake and Output: 02/26/18 02/26/18 06:59 18:59 Intake Total 1150 300 Output Total 425 Balance 1150 -125 - Medications Medications: Current Medications Acetaminophen (Tylenol 650 Mg Supp) 650 mg RI Q6 PRN PRN Reason: Fever >100.4 F Last Admin: 02/25/18 23:26 Dose: 650 mg Albuterol/Ipratropium (Duoneb 3 Mg/0.5 Mg (3 Ml) Ud) 3 ml INH RQID [facility] Last Admin: 02/25/18 19:19 Dose: 3 ml Atorvastatin Calcium (Lipitor) 40 mg PO QPM [facility] Last Admin: 02/24/18 17:29 Dose: 40 mg Diltiazem HCl (Cardizem) 30 mg PO TID [facility] Last Admin: 02/25/18 08:59 Dose: Not Given Furosemide (Lasix) 40 mg PO DAILY [facility] Last Admin: 02/25/18 09:00 Dose: Not Given Iron Sucrose 100 mg/ Sodium (Chloride) 105 mls @ 105 mls/hr IVPB DAILY [facility] Last Admin: 02/25/18 20:06 Dose: 105 mls/hr Piperacillin Sod/Tazobactam (Sod 4.5 gm/ Sodium Chloride) 100 mls @ 100 mls/hr IVPB Q6 JOSE A PRN Reason: Protocol Last Admin: 04/19/18 04:06 Dose: 100 mls/hr Metronidazole (Flagyl 500mg/100ml Ns) 100 mls @ 100 mls/hr IVPB Q8 JOSE A PRN Reason: Protocol Last Admin: 02/26/18 00:03 Dose: 100 mls/hr Lactated Ringer's (Lactated Ringer's) 1,000 mls @ 150 mls/hr IV .Q6H40M [facility] Last Admin: 02/26/18 06:19 Dose: 150 mls/hr Levothyroxine Sodium (Synthroid) 175 mcg PO DAILY@0630 [facility] Last Admin: 02/25/18 09:01 Dose: Not Given Lorazepam (Ativan) 1 mg IVP Q4 PRN PRN Reason: Agitation Last Admin: 02/26/18 06:53 Dose: 1 mg Losartan Potassium (Cozaar) 100 mg PO DAILY [facility] Last Admin: 02/25/18 09:00 Dose: Not Given Morphine Sulfate (Morphine) 8 mg IVP Q4 PRN PRN Reason: Pain, moderate (4-7) Last Admin: 02/25/18 23:55 Dose: 8 mg Nitroglycerin (Nitrostat Sl Tab) 0.4 mg SL Q5MIN PRN PRN Reason: Chest pain Olopatadine HCl (Patanol 0.1% Opht Soln) 1 drop OU DAILY [facility] Last Admin: 02/25/18 09:00 Dose: Not Given Ondansetron HCl (Zofran Inj) 4 mg IVP Q4 PRN PRN Reason: Nausea/Vomiting Last Admin: 02/20/18 03:54 Dose: 4 mg Pantoprazole Sodium (Protonix Inj) 40 mg IVP DAILY [facility] Potassium Chloride (K-Dur 20 Meq Er Tab) 20 meq PO QPM [facility] Last Admin: 02/24/18 17:28 Dose: 20 meq Fluticasone/Salmeterol (Advair Diskus 250/50) 1 puff IH Q12 [facility] Last Admin: 02/25/18 08:59 Dose: Not Given - Labs Labs: 02/26/18 04:35 02/26/18 04:35 PT 22.5 Seconds (9.8-13.1) H D 02/26/18 04:35 INR 2.0 (0.9-1.2) H D 02/26/18 04:35 APTT 35.9 Seconds (25.6-37.1) 02/26/18 04:35 - Constitutional Appears: Non-toxic, No Acute Distress, Other (intubated and sedated ) - Head Exam Head Exam: ATRAUMATIC, NORMOCEPHALIC - Eye Exam Eye Exam: PERRL - ENT Exam ENT Exam: Mucous Membranes Dry, Normal Exam - Neck Exam Neck Exam: Normal Inspection - Respiratory Exam Respiratory Exam: Clear to Ausculation Bilateral, NORMAL BREATHING PATTERN. absent: Rales, Rhonchi, Wheezes - Cardiovascular Exam Cardiovascular Exam: Tachycardia, Irregular Rhythm. absent: JVD - GI/Abdominal Exam GI & Abdominal Exam: Tenderness Additional comments: midline surgiocal incision with dressing , intact Colostomy to LLQ with minimal output of serosanguinous - Extremities Exam Extremities Exam: Normal Capillary Refill, Normal Inspection. absent: Pedal Edema - Neurological Exam Additional comments: sedated grimaces top exam and name calling - Skin Skin Exam: Dry, Pallor, Warm Assessment and Plan - Assessment and Plan (Free Text) Assessment: 87 year old female with a past medical history significant for coronary artery disease, essential hypertension, atrial fibrillation (was on Eliquis starting 1 month ago), congestive heart failure, type 2 DM, COPD, diverticulitis, sleep apnea, and hypothyroidism, admitted to ICU for upper GI bleed. Patient's hgb found to be 5.2 on admission . She was transfused 2 unit PRBC , GI consulted and underwent EGD that showed no active bleed. Eliquis on hold since admission.No more bleeding episodes noted since admission . She was started empirically on Zosyn after spiking fever /16 and being somewhat sleepy. Urine cx rep[orted as < [id number] colonies of mixed tarah. Taken for colonoscopy 02/[address] Calvert that showed diverticulosis, no active bleed. Post colonoscopy developed severe intractable abdominal pain secondary to colon perforation . Taken to OR and underwent exploratory laparatomy with sigmoid resection and sigmoid colostomy. Transfused 2 PRBC and 2 FFP in OR . Maintained intubated post op and monitored in ICU Afib with RVR on monitor post op . Sedated with morphine PRN 1. Colon perforation post colonoscopy s/p exploratory laparatomy with sigmoid resection and colostomy # 1 Surgery on board transfused 2 PRBC and 2 FFP in OR Tmax 100.7 last 12 hours , BP table Afib with RVR on monitor Continue hydration with RL @ 150 ml/hr. Monitor I/O closely since patient has CHF On Zosyn and Flagyl IV empirically On Morphine PRN for pain control and sedation Will try to wean of ventilator and extubate today 2. Acute blood loss anemia secondary to GI bleed with melena Hgb 5.2 on admission s/p total 6 units PRBC transfusion ( as per blood bank ) Hold Eliquis On Protonix IV cont Venofer IV GI following . EGD and colonoscopy showed no active bleeding 3. Diastolic chronic CHF (congestive heart failure), without exacerbation stable hold Lasix 40mg , Metoprolol and Losartan for now ECHO: normal LV function on previous admission. Monitor I/O closely 4. COPD (chronic obstructive pulmonary disease), mild exacerbation Maintained intubated post op Will try to wean off vent today Dr Otto on consult Continue Segundo 5. CAD (coronary artery disease) Chronic Holding ASA and Eliquis due to GI bleed losartan and BB on hold 6. Hypertension Hold po BP meds monitor closely 7. Atrial fibrillation with RVR uncontrolled today with RVR Digoxin IV given . Will continue daily digoxin 0.125 mg IV Eliquis on hold cardizem on hold 8. Diabetes mellitus, type II Chronic Insulin sliding scale. metformin on hold 9. Hypothyroidism Chronic on levothyroxine 175mcg PO daily ( on hold for now ) 10. DVT prophylaxis SCDs, no anticoag sec to GIB
--- NOTE | 2018-02-26 08:27 | CP.PCM.PN ---
Subjective - Date & Time of Evaluation Date of Evaluation: 02/26/18 Time of Evaluation: 07:00 - Subjective Subjective: General Surgery Note for Dr. Montaño Patient seen and examined at bedside. No acute event overnight. Patient is intubated and on vent support (500, 5, 12, 60%). She is POD#1 s/p exploratory laparotomy for perforation with free air. ROS unobtainable due to intubation. Arterial line was pulled out by patient this morning. Objective - Vital Signs/Intake and Output Vital Signs (last 24 hours): Temp Pulse Resp BP Pulse Ox 99.3 F 110 H 12 91/30 L 97 02/26/18 04:00 02/26/18 07:04 02/26/18 07:04 02/26/18 07:04 02/26/18 07:04 Intake and Output: 02/26/18 02/26/18 06:59 18:59 Intake Total 1150 300 Output Total 425 Balance 1150 -125 - Medications Medications: Current Medications Acetaminophen (Tylenol 650 Mg Supp) 650 mg AR Q6 PRN PRN Reason: Fever >100.4 F Last Admin: 02/25/18 23:26 Dose: 650 mg Albuterol/Ipratropium (Duoneb 3 Mg/0.5 Mg (3 Ml) Ud) 3 ml INH RQID [facility] Last Admin: 02/26/18 07:49 Dose: 3 ml Atorvastatin Calcium (Lipitor) 40 mg PO QPM [facility] Last Admin: 02/24/18 17:29 Dose: 40 mg Diltiazem HCl (Cardizem) 30 mg PO TID [facility] Last Admin: 02/25/18 08:59 Dose: Not Given Furosemide (Lasix) 40 mg PO DAILY [facility] Last Admin: 02/25/18 09:00 Dose: Not Given Iron Sucrose 100 mg/ Sodium (Chloride) 105 mls @ 105 mls/hr IVPB DAILY [facility] Last Admin: 02/25/18 20:06 Dose: 105 mls/hr Piperacillin Sod/Tazobactam (Sod 4.5 gm/ Sodium Chloride) 100 mls @ 100 mls/hr IVPB Q6 JOSE A PRN Reason: Protocol Last Admin: 02/26/18 04:06 Dose: 100 mls/hr Metronidazole (Flagyl 500mg/100ml Ns) 100 mls @ 100 mls/hr IVPB Q8 JOSE A PRN Reason: Protocol Last Admin: 02/26/18 00:03 Dose: 100 mls/hr Lactated Ringer's (Lactated Ringer's) 1,000 mls @ 150 mls/hr IV .Q6H40M [facility] Last Admin: 02/26/18 06:19 Dose: 150 mls/hr Levothyroxine Sodium (Synthroid) 175 mcg PO DAILY@0630 [facility] Last Admin: 02/25/18 09:01 Dose: Not Given Lorazepam (Ativan) 1 mg IVP Q4 PRN PRN Reason: Agitation Last Admin: 02/26/18 06:53 Dose: 1 mg Losartan Potassium (Cozaar) 100 mg PO DAILY [facility] Last Admin: 02/25/18 09:00 Dose: Not Given Morphine Sulfate (Morphine) 8 mg IVP Q4 PRN PRN Reason: Pain, moderate (4-7) Last Admin: 02/25/18 23:55 Dose: 8 mg Nitroglycerin (Nitrostat Sl Tab) 0.4 mg SL Q5MIN PRN PRN Reason: Chest pain Olopatadine HCl (Patanol 0.1% Opht Soln) 1 drop OU DAILY [facility] Last Admin: 02/25/18 09:00 Dose: Not Given Ondansetron HCl (Zofran Inj) 4 mg IVP Q4 PRN PRN Reason: Nausea/Vomiting Last Admin: 02/20/18 03:54 Dose: 4 mg Pantoprazole Sodium (Protonix Inj) 40 mg IVP DAILY [facility] Potassium Chloride (K-Dur 20 Meq Er Tab) 20 meq PO QPM [facility] Last Admin: 02/24/18 17:28 Dose: 20 meq Fluticasone/Salmeterol (Advair Diskus 250/50) 1 puff IH Q12 [facility] Last Admin: 02/25/18 08:59 Dose: Not Given - Labs Labs: 02/26/18 04:35 02/26/18 04:35 PT 22.5 Seconds (9.8-13.1) H D 02/26/18 04:35 INR 2.0 (0.9-1.2) H D 02/26/18 04:35 APTT 35.9 Seconds (25.6-37.1) 02/26/18 04:35 Assessment and Plan - Assessment and Plan (Free Text) Plan: 87 F who is s/p ex lap for rectosigmoid perforation and free air with rescetion and colostomy POD#1 -NPO -IV antibiotics -Pain control -Strict I's & O's -Wean from ventilation -Monitor output from drain and colostomy -Will discuss with Dr. Danyel Ramirez PGY1
--- NOTE | 2018-02-26 08:33 | RAD ---
HISTORY: ETT placement COMPARISON: Portable chest 02/25/2018. FINDINGS: Right central venous line, endotracheal and nasogastric tubes are unchanged in position grossly. LUNGS: There is persistent if not increased opacity at the left base with left pleural effusion not excluded. Trace right pleural effusion remains. No pneumothorax bilaterally. PLEURA: CARDIOVASCULAR: Stable cardiac silhouette. No pulmonary vascular derangement. OSSEOUS STRUCTURES: No significant abnormalities. VISUALIZED UPPER ABDOMEN: Normal. OTHER FINDINGS: None. IMPRESSION: Left basilar airspace disease appears persistent if not slightly increased with left pleural effusion not excluded. Trace right pleural effusion again evident.
--- NOTE | 2018-02-26 08:35 | OP ---
PROCEDURE DATE: 02/25/18 PREOPERATIVE DIAGNOSIS: Perforated viscus. POSTOPERATIVE DIAGNOSIS: Perforated viscus. OPERATION PERFORMED: Laparotomy, lysis of massive adhesions, low anterior resection, and Bebo's. DESCRIPTION OF PROCEDURE: In the operating room, the patient was identified by name, name of the procedure, laterality, my mildred, and the consent. I spoke to the family at length considering we are going to try to do a primary anastomosis, but her colostomy not be necessary. I also believe preoperatively that there is no way to avoid an operation, knowing that she has congestive heart failure and COPD at the very least with diabetes. The abdomen was prepped in lithotomy and draped waiting 3 minutes, it was draped, and time-out was then obtained. The patient was identified by name, name of procedure, laterality, my mildred, a consent, her wrist band and number. Grijalva, NG tube, and central line were all placed. Central line done by anesthesia. A lower midline incision was made, that was extended as necessary. There were multiple adhesions in the midline crossing both sides from a prior hysterectomy. The omentum was caked and dissection was difficult. It is having been lysed, there was probably undo bleeding, which possibly was related to a ProTime. FFP was given. The liver looked possibly early cirrhotic, but it is unclear. There was fluid on top of the liver seen on the CAT scan. There was mucus on top of the liver. We ran the bowel quickly, there was hardness in the pelvis, but no clear laceration or perforation. We ran the colon taken down the line of Toldt in the sigmoid, there was no perforation, the splenic flexure was examined as was the transverse and the cecum. The cecum had adhesions from a prior apparent appendectomy, there was no apparent appendix. Running the small bowel second time and lysing adhesions in the pelvis, it became clear there was a linear perforation. This was taken twice with the TA to close the hole. Dissection was difficult to do colostomy because we lost approximately 700 mL of blood, although the vital signs were stable. The dissection in the pelvis was difficult, I could not regularly identify the ureter. The sigmoid colon was felt going down into the pelvis and it was not mobile. Eventually, it was dissected down into the pelvis close to the laceration and the colon was thick and narrow with the TASH and tagged. This allowed mobilization of the proximal colon. I think the residual anatomy, I had sewn off the lumen of the rectosigmoid at the pelvic brim very close to the laceration, but I think it is intact otherwise. It was reluctant to do dissection as it was very inflamed from prior events not from the perforation. The colostomy was difficult, it was point of election in the left lower quadrant, it was opened and dilated to two fingers; however, the ostomy was very fatty. We remobilize the line of Toldt sharply and bluntly and try to get it through the ostomy hole and we were unable to. We then defatted it to give a better approximation of the lumen, still would not go through because there was a short mesentery. Going closer to the deep midline, a counterincision was made, which allowed mobilization to several centimeters length, which was adequate. This ostomy was then brought through the abdominal wall, it was pink and viable. We were able to take it out several centimeters without tension. The abdomen was copiously irrigated and dry. The plaque was placed in the pelvis. The omentum which was freely dissected was placed in the pelvis. The incision was closed with 0 PDS loop stitched above and below. The peritoneum inferiorly is not part of the closure. The wounds were injected with Marcaine. Incision was closed with Vicryl. The ostomy was matured with 3-0 Vicryl, it was pink and viable. and I am very happy. The patient was taken to the ICU in good condition. I spoke to the family both the sisters and I think two sons. The patient is re-constructible, but the decision to go forward . Reoperation would require ureteral catheters. Peter Montaño MD
--- NOTE | 2018-02-26 08:37 | CP.PCM.PN ---
Subjective - Date & Time of Evaluation Date of Evaluation: 02/26/18 Time of Evaluation: 08:35 - Subjective Subjective: Patient remains intubated and sedated Objective - Vital Signs/Intake and Output Vital Signs (last 24 hours): Temp Pulse Resp BP Pulse Ox 99.3 F 110 H 12 91/30 L 97 02/26/18 04:00 02/26/18 07:04 02/26/18 07:04 02/26/18 07:04 02/26/18 07:04 Intake and Output: 02/26/18 02/26/18 06:59 18:59 Intake Total 1150 300 Output Total 425 Balance 1150 -125 - Medications Medications: Current Medications Acetaminophen (Tylenol 650 Mg Supp) 650 mg AK Q6 PRN PRN Reason: Fever >100.4 F Last Admin: 02/25/18 23:26 Dose: 650 mg Albuterol/Ipratropium (Duoneb 3 Mg/0.5 Mg (3 Ml) Ud) 3 ml INH RQID [facility] Last Admin: 02/26/18 07:49 Dose: 3 ml Atorvastatin Calcium (Lipitor) 40 mg PO QPM [facility] Last Admin: 02/24/18 17:29 Dose: 40 mg Digoxin (Lanoxin) 0.125 mg IVP DAILY [facility] Diltiazem HCl (Cardizem) 30 mg PO TID [facility] Last Admin: 02/25/18 08:59 Dose: Not Given Furosemide (Lasix) 40 mg PO DAILY [facility] Last Admin: 02/25/18 09:00 Dose: Not Given Iron Sucrose 100 mg/ Sodium (Chloride) 105 mls @ 105 mls/hr IVPB DAILY [facility] Last Admin: 02/25/18 20:06 Dose: 105 mls/hr Piperacillin Sod/Tazobactam (Sod 4.5 gm/ Sodium Chloride) 100 mls @ 100 mls/hr IVPB Q6 JOSE A PRN Reason: Protocol Last Admin: 02/26/18 04:06 Dose: 100 mls/hr Metronidazole (Flagyl 500mg/100ml Ns) 100 mls @ 100 mls/hr IVPB Q8 JOSE A PRN Reason: Protocol Last Admin: 02/26/18 00:03 Dose: 100 mls/hr Lactated Ringer's (Lactated Ringer's) 1,000 mls @ 150 mls/hr IV .Q6H40M [facility] Last Admin: 02/26/18 06:19 Dose: 150 mls/hr Levothyroxine Sodium (Synthroid) 175 mcg PO DAILY@0630 [facility] Last Admin: 02/25/18 09:01 Dose: Not Given Lorazepam (Ativan) 1 mg IVP Q4 PRN PRN Reason: Agitation Last Admin: 02/26/18 06:53 Dose: 1 mg Losartan Potassium (Cozaar) 100 mg PO DAILY [facility] Last Admin: 02/25/18 09:00 Dose: Not Given Morphine Sulfate (Morphine) 8 mg IVP Q4 PRN PRN Reason: Pain, moderate (4-7) Last Admin: 02/25/18 23:55 Dose: 8 mg Nitroglycerin (Nitrostat Sl Tab) 0.4 mg SL Q5MIN PRN PRN Reason: Chest pain Olopatadine HCl (Patanol 0.1% Opht Soln) 1 drop OU DAILY [facility] Last Admin: 02/25/18 09:00 Dose: Not Given Ondansetron HCl (Zofran Inj) 4 mg IVP Q4 PRN PRN Reason: Nausea/Vomiting Last Admin: 02/20/18 03:54 Dose: 4 mg Pantoprazole Sodium (Protonix Inj) 40 mg IVP DAILY [facility] Potassium Chloride (K-Dur 20 Meq Er Tab) 20 meq PO QPM [facility] Last Admin: 02/24/18 17:28 Dose: 20 meq Fluticasone/Salmeterol (Advair Diskus 250/50) 1 puff IH Q12 [facility] Last Admin: 02/25/18 08:59 Dose: Not Given - Labs Labs: 02/26/18 04:35 02/26/18 04:35 PT 22.5 Seconds (9.8-13.1) H D 02/26/18 04:35 INR 2.0 (0.9-1.2) H D 02/26/18 04:35 APTT 35.9 Seconds (25.6-37.1) 02/26/18 04:35 - Head Exam Head Exam: ATRAUMATIC - ENT Exam ENT Exam: Normal Exam - Respiratory Exam Respiratory Exam: NORMAL BREATHING PATTERN - Cardiovascular Exam Cardiovascular Exam: Irregular Rhythm, +S1, +S2 - GI/Abdominal Exam GI & Abdominal Exam: Distended, Tenderness Assessment and Plan (1) Anemia Status: Chronic (2) Perforation of colon Assessment & Plan: Day 1 post op. Clinically stable. Continue current management Status: Acute
[2018-02-26 08:45] LABS: T4 4.72 ug/dl (5.5-11.0)
[2018-02-26 08:58] LABS: T3 0.276 nmol/L (1.49-2.60)
[2018-02-26] MEDS ORDERED: Digoxin 500 mcg/2ml (0.5 mg/2ml) Inj IVP SCH (09:00)
--- NOTE | 2018-02-26 09:39 | CP.PCM.PN ---
Subjective - Date & Time of Evaluation Date of Evaluation: 02/26/18 Time of Evaluation: 09:39 - Subjective Subjective: s/p colon resection intubated and on the vent vss lungs-fair aeration will attempt to extubate today Objective - Vital Signs/Intake and Output Vital Signs (last 24 hours): Temp Pulse Resp BP Pulse Ox 98.7 F 120 H 15 126/52 L 95 02/26/18 08:00 02/26/18 08:00 02/26/18 08:00 02/26/18 08:00 02/26/18 08:00 Intake and Output: 02/26/18 02/26/18 06:59 18:59 Intake Total 1150 300 Output Total 425 Balance 1150 -125 - Medications Medications: Current Medications Acetaminophen (Tylenol 650 Mg Supp) 650 mg AR Q6 PRN PRN Reason: Fever >100.4 F Last Admin: 02/25/18 23:26 Dose: 650 mg Albuterol/Ipratropium (Duoneb 3 Mg/0.5 Mg (3 Ml) Ud) 3 ml INH RQID [facility] Last Admin: 02/26/18 07:49 Dose: 3 ml Atorvastatin Calcium (Lipitor) 40 mg PO QPM [facility] [place] Last Admin: 02/24/18 17:29 Dose: 40 mg Digoxin (Lanoxin) 0.125 mg IVP DAILY [facility] [place] Diltiazem HCl (Cardizem) 30 mg PO TID [facility] [place] Last Admin: 02/25/18 08:59 Dose: Not Given Furosemide (Lasix) 40 mg PO DAILY [facility] [place] Last Admin: 02/25/18 09:00 Dose: Not Given Iron Sucrose 100 mg/ Sodium (Chloride) 105 mls @ 105 mls/hr IVPB DAILY [facility] [place] Last Admin: 02/25/18 20:06 Dose: 105 mls/hr Piperacillin Sod/Tazobactam (Sod 4.5 gm/ Sodium Chloride) 100 mls @ 100 mls/hr IVPB Q6 JOSE A PRN Reason: Protocol Last Admin: 02/26/18 04:06 Dose: 100 mls/hr Metronidazole (Flagyl 500mg/100ml Ns) 100 mls @ 100 mls/hr IVPB Q8 JOSE A PRN Reason: Protocol Last Admin: 02/26/18 00:03 Dose: 100 mls/hr Lactated Ringer's (Lactated Ringer's) 1,000 mls @ 150 mls/hr IV .Q6H40M [facility] [place] Last Admin: 02/26/18 06:19 Dose: 150 mls/hr Levothyroxine Sodium (Synthroid) 175 mcg PO DAILY@0630 [facility] [place] Last Admin: 02/25/18 09:01 Dose: Not Given Lorazepam (Ativan) 1 mg IVP Q4 PRN PRN Reason: Agitation Last Admin: 02/26/18 06:53 Dose: 1 mg Losartan Potassium (Cozaar) 100 mg PO DAILY [facility] [place] Last Admin: 02/25/18 09:00 Dose: Not Given Morphine Sulfate (Morphine) 8 mg IVP Q4 PRN PRN Reason: Pain, moderate (4-7) Last Admin: 02/25/18 23:55 Dose: 8 mg Nitroglycerin (Nitrostat Sl Tab) 0.4 mg SL Q5MIN PRN PRN Reason: Chest pain Olopatadine HCl (Patanol 0.1% Opht Soln) 1 drop OU DAILY [facility] [place] Last Admin: 02/25/18 09:00 Dose: Not Given Ondansetron HCl (Zofran Inj) 4 mg IVP Q4 PRN PRN Reason: Nausea/Vomiting Last Admin: 02/20/18 03:54 Dose: 4 mg Pantoprazole Sodium (Protonix Inj) 40 mg IVP DAILY [facility] [place] Potassium Chloride (K-Dur 20 Meq Er Tab) 20 meq PO QPM [facility] [place] Last Admin: 02/24/18 17:28 Dose: 20 meq Fluticasone/Salmeterol (Advair Diskus 250/50) 1 puff IH Q12 [facility] [place] Last Admin: 02/25/18 08:59 Dose: Not Given - Labs Labs: 02/26/18 04:35 02/26/18 04:35 PT 22.5 Seconds (9.8-13.1) H D 02/26/18 04:35 INR 2.0 (0.9-1.2) H D 02/26/18 04:35 APTT 35.9 Seconds (25.6-37.1) 02/26/18 04:35
[2018-02-26] MEDS: Olopatadine 0.1% Opht SOLN OU SCH (09:58)
[2018-02-26] MEDS: HYDROmorphone 0.5 mg/0.5 ml ISec IVP PRN ×2 (12:06→23:53)
--- NOTE | 2018-02-26 13:31 | PCM.PROC ---
Procedures Attestation:: I certify that I have explained the specified Operation(s) or Procedure(s), risks, benefits and reasonable alternatives to the Patient and/or other person responsible. The opportunity was given to ask questions and all questions answered - Extubation RSBI Score: 75 Clinical Parameters: Hemodynamically Stable, Spontaneous Respirations, Acceptable Vent Settings (FIO2<50%, PEEP<8, PaO2>75, pH>7.25) Weaning Criteria Met: Yes General Weaning Approaches: Pressure Support Ventilation (PSV) Weaning Patient Condition: Patient has been successfully extubated and assessed Oxygen Therapy: O2 via Venti Mask Patient Tolerated Procedure: Well, No Complications
[2018-02-27] MEDS: Piperacillin/Tazobact 4.5 GM in Sodium Chloride 0.9% 100 ML IVPB SCH ×4 (04:27→22:00)
[2018-02-27] MEDS: Lactated Ringer's 1,000 ML IV SCH ×2 (05:37→23:56)
[2018-02-27 05:54] LABS: HEMOGLOBIN 9.7 g/dL (12.0-16.0); MEAN CELL VOLUME 90.5 fl (81.0-99.0); MEAN CORPUSCULAR HEMOGLOBIN 28.2 pg (27.0-31.0); MEAN CORPUSCULAR HGB CONC 31.2 g/dL (33.0-37.0); RBC 3.43 Mil/uL (3.80-5.20); RED CELL DISTRIBUTION WIDTH 20.3 % (11.5-14.5); WHITE BLOOD COUNT 20.8 K/uL (4.8-10.8)
[2018-02-27 06:12] LABS: INR 1.7 (0.9-1.2)
[2018-02-27 06:26] LABS: BLOOD UREA NITROGEN 21 mg/dl (7-17); CALCIUM 8.2 mg/dL (8.4-10.2); GFR AFRICAN-AMERICAN > 60; GFR NON-AFRICAN AMERICAN 59
[2018-02-27] MEDS: Albuterol-Ipratrop 3 mg / 0.5 (3 ml) UD INH SCH ×4 (07:18→19:07)
--- NOTE | 2018-02-27 07:49 | CP.PCM.PN ---
Subjective - Date & Time of Evaluation Date of Evaluation: 02/27/18 Time of Evaluation: 07:35 - Subjective Subjective: General Surgery Note for Dr. Montaño Patient seen and examined at bedside. No acute event overnight. Patient extubated herself and removed elle drain yesterday afternoon. She is POD#2 s/p exploratory laparotomy for perforation with free air. Dressing was removed. There is mild erythema near midline incision. No output from colostomy overnight. ROS unobtainable due to clinical condition. Objective - Vital Signs/Intake and Output Vital Signs (last 24 hours): Temp Pulse Resp BP Pulse Ox 99.0 F 104 H 12 140/61 97 02/27/18 04:00 02/27/18 06:00 02/27/18 06:00 02/27/18 06:00 02/27/18 06:00 Intake and Output: 02/27/18 02/27/18 06:59 18:59 Intake Total 1550 Output Total 300 Balance 1250 - Medications Medications: Current Medications Acetaminophen (Tylenol 650 Mg Supp) 650 mg [place] Q6 PRN PRN Reason: Fever >100.4 F Last Admin: 02/25/18 23:26 Dose: 650 mg Albuterol/Ipratropium (Duoneb 3 Mg/0.5 Mg (3 Ml) Ud) 3 ml INH RQID [facility] Last Admin: 02/27/18 07:18 Dose: 3 ml Atorvastatin Calcium (Lipitor) 40 mg PO QPM [facility] Last Admin: 02/24/18 17:29 Dose: 40 mg Digoxin (Lanoxin) 0.125 mg IVP DAILY [facility] Last Admin: 02/26/18 09:51 Dose: 0.125 mg Diltiazem HCl (Cardizem) 30 mg PO TID [facility] Last Admin: 02/25/18 08:59 Dose: Not Given Furosemide (Lasix) 40 mg PO DAILY [facility] Last Admin: 02/25/18 09:00 Dose: Not Given Hydromorphone HCl (Dilaudid) 1 mg IVP Q4 PRN PRN Reason: Pain, moderate (4-7) Last Admin: 02/26/18 23:53 Dose: 1 mg Iron Sucrose 100 mg/ Sodium (Chloride) 105 mls @ 105 mls/hr IVPB DAILY [facility] Last Admin: 02/26/18 12:11 Dose: 105 mls/hr Piperacillin Sod/Tazobactam (Sod 4.5 gm/ Sodium Chloride) 100 mls @ 100 mls/hr IVPB Q6 JOSE A PRN Reason: Protocol Last Admin: 02/27/18 04:27 Dose: 100 mls/hr Metronidazole (Flagyl 500mg/100ml Ns) 100 mls @ 100 mls/hr IVPB Q8 JOSE A PRN Reason: Protocol Last Admin: 02/26/18 23:59 Dose: 100 mls/hr Lactated Ringer's (Lactated Ringer's) 1,000 mls @ 150 mls/hr IV .Q6H40M [facility] Last Admin: 02/27/18 05:37 Dose: 150 mls/hr Levothyroxine Sodium (Synthroid) 175 mcg PO DAILY@0630 [facility] Last Admin: 02/25/18 09:01 Dose: Not Given Lorazepam (Ativan) 1 mg IVP Q4 PRN PRN Reason: Agitation Last Admin: 02/26/18 06:53 Dose: 1 mg Losartan Potassium (Cozaar) 100 mg PO DAILY [facility] Last Admin: 02/25/18 09:00 Dose: Not Given Nitroglycerin (Nitrostat Sl Tab) 0.4 mg SL Q5MIN PRN PRN Reason: Chest pain Olopatadine HCl (Patanol 0.1% Opht Soln) 1 drop OU DAILY [facility] Last Admin: 02/26/18 09:58 Dose: 1 drop Ondansetron HCl (Zofran Inj) 4 mg IVP Q4 PRN PRN Reason: Nausea/Vomiting Last Admin: 02/20/18 03:54 Dose: 4 mg Pantoprazole Sodium (Protonix Inj) 40 mg IVP DAILY [facility] Last Admin: 02/26/18 09:58 Dose: 40 mg Potassium Chloride (K-Dur 20 Meq Er Tab) 20 meq PO QPM [facility] Last Admin: 02/24/18 17:28 Dose: 20 meq Fluticasone/Salmeterol (Advair Diskus 250/50) 1 puff IH Q12 [facility] Last Admin: 02/25/18 08:59 Dose: Not Given - Labs Labs: 02/27/18 05:30 02/27/18 05:30 PT 19.0 Seconds (9.8-13.1) H 02/27/18 05:30 INR 1.7 (0.9-1.2) H 02/27/18 05:30 APTT 35.9 Seconds (25.6-37.1) 02/26/18 04:35 - Constitutional Appears: No Acute Distress - Head Exam Head Exam: ATRAUMATIC, NORMOCEPHALIC - Eye Exam Eye Exam: Normal appearance - ENT Exam ENT Exam: Mucous Membranes Moist - Respiratory Exam Respiratory Exam: NORMAL BREATHING PATTERN - Cardiovascular Exam Cardiovascular Exam: Tachycardia (100s) - GI/Abdominal Exam GI & Abdominal Exam: Soft, Normal Bowel Sounds. absent: Distended, Firm, Guarding, Tenderness Additional comments: midline incision clean dry and intact with mild erythema Colostomy in LLQ without any output in bag - maroon in color and patent - Extremities Exam Extremities Exam: Normal Capillary Refill - Neurological Exam Neurological Exam: Awake - Psychiatric Exam Psychiatric exam: Normal Affect, Normal Mood - Skin Skin Exam: Dry, Intact, Warm Assessment and Plan - Assessment and Plan (Free Text) Plan: 87 F who is s/p ex lap for rectosigmoid perforation and free air with rescetion and colostomy POD#2 -ADAT -Continue IV antibiotics -Pain control -Strict I's & O's -Monitor output colostomy -May resume anticoagulation -Will discuss with Dr. Danyel Ramirez PGY1
--- NOTE | 2018-02-27 08:06 | CP.CCUPN ---
CCU Subjective - Physician Review Subjective (Free Text): Finally extubated yesterday afternoon, on VM, tolertaed nasal cannula oxygen, still has internittent abdominal pain, on Dilaudid now. Other VS and I/Os reviewed. HR variable between 110- 120 in A Fib, SBP 130-140 s. I/O's +0.8L last 24H. Otherwise on LR @150 ml/hr. ROS: No other pertinent negs or positives on 10+ system review obtainable due to present agitation. PMSFH: All other Nursing and physician documentation reviewed to date; no new pertinent info noted relevant to current medical problems. EXAM- HEENT: no icterus, no gaze preference, pupils 3 mm equal and sluggishly reactive , no icterus NECK: No JVD, supple, carotids equal upstroke bilat/no bruits CHEST: decreased BS bases, no wheezes audible HEART: regular distant, S1S2, no rubs. ABD: soft, obese, + mild distention, + tenderness across entire epigastrium, BS inaudible EXT: trace edema bilat. No peripheral/ digital cyanosis, no calf tenderness or palpable cords, distal pulses intact and symmetrical. NEURO: no gross focal motor deficits SKIN: no rashes, warm and dry. LABS: WBC= 20.8 HGB= 9.7 PLTs= 213K Na= 141 K= 4.2 CL= 103 HCO3= 27 BUN/Cr= 21/0.9 BS= 138 INR = 1.7 IMPRESSION / MAJOR PROBLEMS NOW: 1. Post Colonoscopy with Bowel Perforation 2. Acute on Chronic Disease Anemia 2; GI Blood loss, + gastritis on EGD 3. Chronic A fib on AC with Eliquis 4. h/o CHF with DDysfx, not decompensated now, even after PRBCs. PLAN: 1. maintain IVF hydration. 2. Empiric abx coverage. 3. Digoxin prn for VR control. Could resume Cardizem. 4. Consider resuming AC if cleared by Surgery. 5. Could remove Grijalva, get OOB, encourage IncentSpiro, stable for transfer to med/surg bed. CCU Objective - Vital Signs / Intake & Output Vital Signs (Last 4 hours): Vital Signs Temp Pulse Resp BP Pulse Ox 02/27/18 06:00 104 H 12 140/61 97 02/27/18 04:00 99.0 F 113 H 9 L 128/70 100 Intake and Output (Last 8hrs): Intake & Output 02/26/18 02/27/18 02/27/18 22:59 06:59 14:59 Intake Total 400 1150 Output Total 100 300 Balance 300 850 Intake: IV 300 1050 Intake, Piggyback 100 100 Output: Urine 100 300 Urethral (Grijalva) 100 300
--- NOTE | 2018-02-27 09:17 | CP.PCM.PN ---
Subjective - Date & Time of Evaluation Date of Evaluation: 02/27/18 Time of Evaluation: 09:00 - Subjective Subjective: no fever Pt was extubated yesterday, saturating well on VM abd pain better Colostomy bag - empty denies CP no SOB Objective - Vital Signs/Intake and Output Vital Signs (last 24 hours): Temp Pulse Resp BP Pulse Ox 99.0 F 104 H 12 140/61 97 02/27/18 04:00 02/27/18 06:00 02/27/18 06:00 02/27/18 06:00 02/27/18 06:00 Intake and Output: 02/27/18 02/27/18 06:59 18:59 Intake Total 1550 Output Total 300 Balance 1250 - Medications Medications: Current Medications Acetaminophen (Tylenol 650 Mg Supp) 650 mg [place] Q6 PRN PRN Reason: Fever >100.4 F Last Admin: 02/25/18 23:26 Dose: 650 mg Albuterol/Ipratropium (Duoneb 3 Mg/0.5 Mg (3 Ml) Ud) 3 ml INH RQID [facility] Last Admin: 02/27/18 07:18 Dose: 3 ml Atorvastatin Calcium (Lipitor) 40 mg PO QPM [facility] Last Admin: 02/24/18 17:29 Dose: 40 mg Digoxin (Lanoxin) 0.125 mg IVP DAILY [facility] Last Admin: 02/26/18 09:51 Dose: 0.125 mg Diltiazem HCl (Cardizem) 30 mg PO TID [facility] Last Admin: 02/25/18 08:59 Dose: Not Given Furosemide (Lasix) 40 mg PO DAILY [facility] Last Admin: 02/25/18 09:00 Dose: Not Given Hydromorphone HCl (Dilaudid) 1 mg IVP Q4 PRN PRN Reason: Pain, moderate (4-7) Last Admin: 02/26/18 23:53 Dose: 1 mg Iron Sucrose 100 mg/ Sodium (Chloride) 105 mls @ 105 mls/hr IVPB DAILY [facility] Last Admin: 02/26/18 12:11 Dose: 105 mls/hr Piperacillin Sod/Tazobactam (Sod 4.5 gm/ Sodium Chloride) 100 mls @ 100 mls/hr IVPB Q6 JOSE A PRN Reason: Protocol Last Admin: 02/27/18 04:27 Dose: 100 mls/hr Metronidazole (Flagyl 500mg/100ml Ns) 100 mls @ 100 mls/hr IVPB Q8 JOSE A PRN Reason: Protocol Last Admin: 02/26/18 23:59 Dose: 100 mls/hr Lactated Ringer's (Lactated Ringer's) 1,000 mls @ 150 mls/hr IV .Q6H40M [facility] Last Admin: 02/27/18 05:37 Dose: 150 mls/hr Levothyroxine Sodium (Synthroid) 175 mcg PO DAILY@0630 [facility] Last Admin: 02/25/18 09:01 Dose: Not Given Lorazepam (Ativan) 1 mg IVP Q4 PRN PRN Reason: Agitation Last Admin: 02/26/18 06:53 Dose: 1 mg Losartan Potassium (Cozaar) 100 mg PO DAILY [facility] Last Admin: 02/25/18 09:00 Dose: Not Given Nitroglycerin (Nitrostat Sl Tab) 0.4 mg SL Q5MIN PRN PRN Reason: Chest pain Olopatadine HCl (Patanol 0.1% Opht Soln) 1 drop OU DAILY [facility] Last Admin: 02/26/18 09:58 Dose: 1 drop Ondansetron HCl (Zofran Inj) 4 mg IVP Q4 PRN PRN Reason: Nausea/Vomiting Last Admin: 02/20/18 03:54 Dose: 4 mg Pantoprazole Sodium (Protonix Inj) 40 mg IVP DAILY [facility] Last Admin: 02/26/18 09:58 Dose: 40 mg Potassium Chloride (K-Dur 20 Meq Er Tab) 20 meq PO QPM [facility] Last Admin: 02/24/18 17:28 Dose: 20 meq Fluticasone/Salmeterol (Advair Diskus 250/50) 1 puff IH Q12 [facility] Last Admin: 02/25/18 08:59 Dose: Not Given - Labs Labs: 02/27/18 05:30 02/27/18 05:30 PT 19.0 Seconds (9.8-13.1) H 02/27/18 05:30 INR 1.7 (0.9-1.2) H 02/27/18 05:30 APTT 35.9 Seconds (25.6-37.1) 02/26/18 04:35 - Constitutional Appears: No Acute Distress - Head Exam Head Exam: NORMAL INSPECTION, NORMOCEPHALIC - Eye Exam Eye Exam: EOMI, Normal appearance Pupil Exam: NORMAL ACCOMODATION - ENT Exam ENT Exam: Mucous Membranes Dry, Normal External Ear Exam - Neck Exam Neck Exam: Full ROM. absent: Meningismus - Respiratory Exam Respiratory Exam: Rhonchi, NORMAL BREATHING PATTERN. absent: Respiratory Distress - Cardiovascular Exam Cardiovascular Exam: Tachycardia, Irregular Rhythm, +S1, +S2 - GI/Abdominal Exam GI & Abdominal Exam: Tenderness, Normal Bowel Sounds Additional comments: Lef Colostomy - empty Midline Surgical wound with alaina intact - Extremities Exam Extremities Exam: Full ROM, Normal Capillary Refill. absent: Calf Tenderness - Back Exam Back Exam: absent: CVA tenderness (L), CVA tenderness (R) - Neurological Exam Neurological Exam: Alert, Awake, CN II-XII Intact Additional comments: oriented to person and place - Psychiatric Exam Psychiatric exam: Flat Affect - Skin Skin Exam: Dry, Pallor, Warm Assessment and Plan - Assessment and Plan (Free Text) Assessment: 87 year old female with a past medical history significant for coronary artery disease, essential hypertension, atrial fibrillation (was on Eliquis starting 1 month ago), congestive heart failure, type 2 DM, COPD, diverticulitis, sleep apnea, and hypothyroidism, admitted to ICU for upper GI bleed. Patient's hgb found to be 5.2 on admission . She was transfused 2 unit PRBC , GI consulted and underwent EGD that showed no active bleed. Eliquis on hold since admission. No more bleeding episodes noted since admission . She was started empirically on Zosyn after spiking fever /16 and being somewhat sleepy. Urine cx reported as < [id number] colonies of mixed tarah. Taken for colonoscopy 02/[address] Calvert that showed diverticulosis, no active bleed. Post colonoscopy developed severe intractable abdominal pain secondary to colon perforation . Taken to OR and underwent exploratory laparatomy with sigmoid resection and sigmoid colostomy. Transfused 2 PRBC and 2 FFP in OR . Maintained intubated post op and monitored in ICU. Extubated on 02/26 Afib with RVR on monitor post op . Sedated with morphine PRN 1. Colon perforation post colonoscopy s/p exploratory laparatomy with sigmoid resection and colostomy 02/25 Surgery on board transfused 2 PRBC and 2 FFP in OR Continue hydration with RL @ 150 ml/hr. Monitor I/O closely since patient has CHF On Zosyn and Flagyl IV empirically On Morphine PRN for pain control and sedation 2. Acute blood loss anemia secondary to GI bleed with melena Hgb 5.2 on admission s/p total 6 units PRBC transfusion ( as per blood bank ) Hold Eliquis On Protonix IV cont Venofer IV GI following . EGD and colonoscopy showed no active bleeding 3. Diastolic chronic CHF (congestive heart failure), without exacerbation stable hold Lasix 40mg , Metoprolol and Losartan for now ECHO: normal LV function on previous admission. Monitor I/O closely 4. COPD (chronic obstructive pulmonary disease), mild exacerbation Maintained intubated post op Will try to wean off vent today Dr Otto on consult Continue Segundo 5. CAD (coronary artery disease) Chronic Holding ASA and Eliquis due to GI bleed losartan and BB on hold 6. Hypertension Hold po BP meds monitor closely 7. Atrial fibrillation with RVR uncontrolled today with RVR Digoxin IV given . Will continue daily digoxin 0.125 mg IV Eliquis on hold cardizem on hold 8. Diabetes mellitus, type II Chronic Insulin sliding scale. metformin on hold 9. Hypothyroidism Chronic on levothyroxine 175mcg PO daily ( on hold for now ) 10. DVT prophylaxis SCDs, no anticoag sec to GIB
[2018-02-27] MEDS: metroNIDAZOLE 500mg/100ml NS 100 ML IVPB SCH ×2 (09:59→16:13)
[2018-02-27] MEDS: Olopatadine 0.1% Opht SOLN OU SCH (10:01)
[2018-02-27] MEDS ORDERED: Digoxin 500 mcg/2ml (0.5 mg/2ml) Inj IVP SCH (11:15)
--- NOTE | 2018-02-27 13:19 | CP.PCM.PN ---
Subjective - Date & Time of Evaluation Date of Evaluation: 02/27/18 Time of Evaluation: 13:20 - Subjective Subjective: EXTUBATED STILL DROWSY FROM MEDS Objective - Vital Signs/Intake and Output Vital Signs (last 24 hours): Temp Pulse Resp BP Pulse Ox 98.4 F 101 H 16 129/67 99 02/27/18 08:00 02/27/18 08:00 02/27/18 08:00 02/27/18 08:00 02/27/18 08:00 Intake and Output: 02/27/18 02/27/18 06:59 18:59 Intake Total 1550 Output Total 300 Balance 1250 - Medications Medications: Current Medications Acetaminophen (Tylenol 650 Mg Supp) 650 mg RI Q6 PRN PRN Reason: Fever >100.4 F Last Admin: 02/25/18 23:26 Dose: 650 mg Albuterol/Ipratropium (Duoneb 3 Mg/0.5 Mg (3 Ml) Ud) 3 ml INH RQID [facility] Last Admin: 02/27/18 11:43 Dose: 3 ml Atorvastatin Calcium (Lipitor) 40 mg PO QPM [facility] Last Admin: 02/24/18 17:29 Dose: 40 mg Digoxin (Lanoxin) 0.125 mg IVP DAILY [facility] Digoxin (Lanoxin) 0.125 mg IVP DAILY [facility] Diltiazem HCl (Cardizem) 30 mg PO TID [facility] Last Admin: 02/25/18 08:59 Dose: Not Given Furosemide (Lasix) 40 mg PO DAILY [facility] Last Admin: 02/25/18 09:00 Dose: Not Given Hydromorphone HCl (Dilaudid) 1 mg IVP Q4 PRN PRN Reason: Pain, moderate (4-7) Last Admin: 02/26/18 23:53 Dose: 1 mg Iron Sucrose 100 mg/ Sodium (Chloride) 105 mls @ 105 mls/hr IVPB DAILY [facility] Last Admin: 02/27/18 09:59 Dose: 105 mls/hr Piperacillin Sod/Tazobactam (Sod 4.5 gm/ Sodium Chloride) 100 mls @ 100 mls/hr IVPB Q6 JOSE A PRN Reason: Protocol Last Admin: 02/27/18 10:00 Dose: 100 mls/hr Metronidazole (Flagyl 500mg/100ml Ns) 100 mls @ 100 mls/hr IVPB Q8 JOSE A PRN Reason: Protocol Last Admin: 02/27/18 09:59 Dose: 100 mls/hr Lactated Ringer's (Lactated Ringer's) 1,000 mls @ 150 mls/hr IV .Q6H40M [facility] Last Admin: 02/27/18 05:37 Dose: 150 mls/hr Levothyroxine Sodium (Synthroid) 175 mcg PO DAILY@0630 [facility] Last Admin: 02/25/18 09:01 Dose: Not Given Lorazepam (Ativan) 1 mg IVP Q4 PRN PRN Reason: Agitation Last Admin: 02/26/18 06:53 Dose: 1 mg Losartan Potassium (Cozaar) 100 mg PO DAILY [facility] Last Admin: 02/25/18 09:00 Dose: Not Given Nitroglycerin (Nitrostat Sl Tab) 0.4 mg SL Q5MIN PRN PRN Reason: Chest pain Olopatadine HCl (Patanol 0.1% Opht Soln) 1 drop OU DAILY [facility] Last Admin: 02/27/18 10:01 Dose: 1 drop Ondansetron HCl (Zofran Inj) 4 mg IVP Q4 PRN PRN Reason: Nausea/Vomiting Last Admin: 02/20/18 03:54 Dose: 4 mg Pantoprazole Sodium (Protonix Inj) 40 mg IVP DAILY [facility] Last Admin: 02/27/18 10:00 Dose: 40 mg Potassium Chloride (K-Dur 20 Meq Er Tab) 20 meq PO QPM [facility] Last Admin: 02/24/18 17:28 Dose: 20 meq Fluticasone/Salmeterol (Advair Diskus 250/50) 1 puff IH Q12 [facility] Last Admin: 02/25/18 08:59 Dose: Not Given - Labs Labs: 02/27/18 05:30 02/27/18 05:30 PT 19.0 Seconds (9.8-13.1) H 02/27/18 05:30 INR 1.7 (0.9-1.2) H 02/27/18 05:30 APTT 35.9 Seconds (25.6-37.1) 02/26/18 04:35 - Constitutional Appears: Chronically Ill - Head Exam Head Exam: ATRAUMATIC, NORMAL INSPECTION, NORMOCEPHALIC - Eye Exam Eye Exam: EOMI, Normal appearance, PERRL Pupil Exam: NORMAL ACCOMODATION, PERRL - ENT Exam ENT Exam: Mucous Membranes Moist, Normal Exam - Neck Exam Neck Exam: Full ROM, Normal Inspection. absent: Lymphadenopathy - Respiratory Exam Respiratory Exam: Prolonged Expiratory Phase Additional comments: FACE MASK IN PLACE - Cardiovascular Exam Cardiovascular Exam: REGULAR RHYTHM, +S1, +S2. absent: Murmur - GI/Abdominal Exam GI & Abdominal Exam: Soft, Tenderness, Normal Bowel Sounds Additional comments: SCAR OF ABDOMINAL SURGERY - Rectal Exam Rectal Exam: NORMAL INSPECTION - Extremities Exam Extremities Exam: Full ROM, Normal Capillary Refill, Normal Inspection. absent : Joint Swelling, Pedal Edema - Back Exam Back Exam: NORMAL INSPECTION - Skin Skin Exam: Dry, Intact, Normal Color, Warm Assessment and Plan - Assessment and Plan (Free Text) Assessment: S/P COLON SURGERY COPD Plan: CONTINUE CURRENT RX
--- NOTE | 2018-02-27 14:13 | CP.PCM.PN ---
Subjective - Date & Time of Evaluation Date of Evaluation: 02/27/18 Time of Evaluation: 09:00 - Subjective Subjective: Patient tolerated extubation. Is drowsy from meds Objective - Vital Signs/Intake and Output Vital Signs (last 24 hours): Temp Pulse Resp BP Pulse Ox 98.4 F 101 H 16 129/67 99 02/27/18 08:00 02/27/18 08:00 02/27/18 08:00 02/27/18 08:00 02/27/18 08:00 Intake and Output: 02/27/18 02/27/18 06:59 18:59 Intake Total 1550 Output Total 300 Balance 1250 - Medications Medications: Current Medications Acetaminophen (Tylenol 650 Mg Supp) 650 mg NE Q6 PRN PRN Reason: Fever >100.4 F Last Admin: 02/25/18 23:26 Dose: 650 mg Albuterol/Ipratropium (Duoneb 3 Mg/0.5 Mg (3 Ml) Ud) 3 ml INH RQID [facility] Last Admin: 02/27/18 11:43 Dose: 3 ml Atorvastatin Calcium (Lipitor) 40 mg PO QPM [facility] Last Admin: 02/24/18 17:29 Dose: 40 mg Digoxin (Lanoxin) 0.125 mg IVP DAILY [facility] Digoxin (Lanoxin) 0.125 mg IVP DAILY [facility] Diltiazem HCl (Cardizem) 30 mg PO TID [facility] Last Admin: 02/25/18 08:59 Dose: Not Given Furosemide (Lasix) 40 mg PO DAILY [facility] Last Admin: 02/25/18 09:00 Dose: Not Given Hydromorphone HCl (Dilaudid) 1 mg IVP Q4 PRN PRN Reason: Pain, moderate (4-7) Last Admin: 02/26/18 23:53 Dose: 1 mg Iron Sucrose 100 mg/ Sodium (Chloride) 105 mls @ 105 mls/hr IVPB DAILY [facility] Last Admin: 02/27/18 09:59 Dose: 105 mls/hr Piperacillin Sod/Tazobactam (Sod 4.5 gm/ Sodium Chloride) 100 mls @ 100 mls/hr IVPB Q6 JO[facility] A PRN Reason: Protocol Last Admin: 02/27/18 10:00 Dose: 100 mls/hr Metronidazole (Flagyl 500mg/100ml Ns) 100 mls @ 100 mls/hr IVPB Q8 [facility] PRN Reason: Protocol Last Admin: 02/27/18 09:59 Dose: 100 mls/hr Lactated Ringer's (Lactated Ringer's) 1,000 mls @ 150 mls/hr IV .Q6H40M [facility] Last Admin: 02/27/18 05:37 Dose: 150 mls/hr Levothyroxine Sodium (Synthroid) 175 mcg PO DAILY@0630 [facility] Last Admin: 02/25/18 09:01 Dose: Not Given Lorazepam (Ativan) 1 mg IVP Q4 PRN PRN Reason: Agitation Last Admin: 02/26/18 06:53 Dose: 1 mg Losartan Potassium (Cozaar) 100 mg PO DAILY [facility] Last Admin: 02/25/18 09:00 Dose: Not Given Nitroglycerin (Nitrostat Sl Tab) 0.4 mg SL Q5MIN PRN PRN Reason: Chest pain Olopatadine HCl (Patanol 0.1% Opht Soln) 1 drop OU DAILY [facility] Last Admin: 02/27/18 10:01 Dose: 1 drop Ondansetron HCl (Zofran Inj) 4 mg IVP Q4 PRN PRN Reason: Nausea/Vomiting Last Admin: 02/20/18 03:54 Dose: 4 mg Pantoprazole Sodium (Protonix Inj) 40 mg IVP DAILY [facility] Last Admin: 02/27/18 10:00 Dose: 40 mg Potassium Chloride (K-Dur 20 Meq Er Tab) 20 meq PO QPM [facility] Last Admin: 02/24/18 17:28 Dose: 20 meq Fluticasone/Salmeterol (Advair Diskus 250/50) 1 puff IH Q12 [facility] Last Admin: 02/25/18 08:59 Dose: Not Given - Labs Labs: 02/27/18 05:30 02/27/18 05:30 PT 19.0 Seconds (9.8-13.1) H 02/27/18 05:30 INR 1.7 (0.9-1.2) H 02/27/18 05:30 APTT 35.9 Seconds (25.6-37.1) 02/26/18 04:35 - Head Exam Head Exam: ATRAUMATIC - ENT Exam ENT Exam: Normal Exam - Neck Exam Neck Exam: Normal Inspection - Respiratory Exam Respiratory Exam: NORMAL BREATHING PATTERN - Cardiovascular Exam Cardiovascular Exam: +S1, +S2 - GI/Abdominal Exam GI & Abdominal Exam: Distended Assessment and Plan (1) Anemia Status: Chronic (2) Perforation of colon Assessment & Plan: Patient remains stable. Progressing as expected postop. Continue current treatment. Status: Acute
[2018-02-28] MEDS: metroNIDAZOLE 500mg/100ml NS 100 ML IVPB SCH ×3 (01:14→16:02)
[2018-02-28] MEDS: Piperacillin/Tazobact 4.5 GM in Sodium Chloride 0.9% 100 ML IVPB SCH ×3 (04:22→16:04)
[2018-02-28 06:19] LABS: EOS % 0.2 % (0.0-4.0); HEMOGLOBIN 8.9 g/dL (12.0-16.0); LYMPH # 0.9 K/uL (1.0-4.3); LYMPH % 4.7 % (20.0-40.0); MEAN CELL VOLUME 92.6 fl (81.0-99.0); MEAN CORPUSCULAR HGB CONC 30.2 g/dL (33.0-37.0); MONO # 1.2 K/uL (0.0-0.8); MONO % 6.6 % (0.0-10.0); NEUT # 16.9 K/uL (1.8-7.0); NEUT % 88.5 % (50.0-75.0); RBC 3.19 Mil/uL (3.80-5.20); RED CELL DISTRIBUTION WIDTH 21.4 % (11.5-14.5)
[2018-02-28 06:31] LABS: ALB/GLOB RATIO 0.8 (1.0-2.1); ALBUMIN 2.6 g/dL (3.5-5.0); ALT/SGPT 35 U/L (9-52); AST/SGOT 42 U/L (14-36); BLOOD UREA NITROGEN 20 mg/dl (7-17); CALCIUM 8.2 mg/dL (8.4-10.2); GFR AFRICAN-AMERICAN > 60; GFR NON-AFRICAN AMERICAN > 60
[2018-02-28] MEDS: Albuterol-Ipratrop 3 mg / 0.5 (3 ml) UD INH SCH ×4 (08:00→19:19)
--- NOTE | 2018-02-28 08:01 | CP.PCM.PN ---
Subjective - Date & Time of Evaluation Date of Evaluation: 02/28/18 Time of Evaluation: 07:59 - Subjective Subjective: SURGERY NOTE FOR DR. BAEZ 87F seen and examined at bedside. No acute events overnight, Patient resting in bed comfortably. Denies pain, nausea, vomiting. Objective - Vital Signs/Intake and Output Vital Signs (last 24 hours): Temp Pulse Resp BP Pulse Ox 98.4 F 88 11 L 142/66 100 02/28/18 04:00 02/28/18 06:00 02/28/18 06:00 02/28/18 06:00 02/28/18 06:00 Intake and Output: 02/28/18 02/28/18 06:59 18:59 Intake Total 1500 Output Total 480 Balance 1020 - Medications Medications: Current Medications Acetaminophen (Tylenol 650 Mg Supp) 650 mg [place] Q6 PRN PRN Reason: Fever >100.4 F Last Admin: 02/25/18 23:26 Dose: 650 mg Albuterol/Ipratropium (Duoneb 3 Mg/0.5 Mg (3 Ml) Ud) 3 ml INH RQID [facility] Last Admin: 02/27/18 19:07 Dose: 3 ml Atorvastatin Calcium (Lipitor) 40 mg PO QPM [facility] Last Admin: 02/24/18 17:29 Dose: 40 mg Digoxin (Lanoxin) 0.125 mg IVP DAILY [facility] Digoxin (Lanoxin) 0.125 mg IVP DAILY [facility] Last Admin: 02/27/18 11:20 Dose: 0.125 mg Diltiazem HCl (Cardizem) 30 mg PO TID [facility] Last Admin: 02/25/18 08:59 Dose: Not Given Furosemide (Lasix) 40 mg PO DAILY [facility] Last Admin: 02/25/18 09:00 Dose: Not Given Hydromorphone HCl (Dilaudid) 1 mg IVP Q4 PRN PRN Reason: Pain, moderate (4-7) Last Admin: 02/26/18 23:53 Dose: 1 mg Iron Sucrose 100 mg/ Sodium (Chloride) 105 mls @ 105 mls/hr IVPB DAILY [facility] Last Admin: 02/27/18 09:59 Dose: 105 mls/hr Piperacillin Sod/Tazobactam (Sod 4.5 gm/ Sodium Chloride) 100 mls @ 100 mls/hr IVPB Q6 [facility] A PRN Reason: Protocol Last Admin: 02/28/18 04:22 Dose: 100 mls/hr Metronidazole (Flagyl 500mg/100ml Ns) 100 mls @ 100 mls/hr IVPB Q8 JOSE A PRN Reason: Protocol Last Admin: 02/28/18 01:14 Dose: 100 mls/hr Lactated Ringer's (Lactated Ringer's) 1,000 mls @ 150 mls/hr IV .Q6H40M [facility] Last Admin: 02/27/18 23:56 Dose: 150 mls/hr Levothyroxine Sodium (Synthroid) 175 mcg PO DAILY@0630 [facility] Last Admin: 02/25/18 09:01 Dose: Not Given Lorazepam (Ativan) 1 mg IVP Q4 PRN PRN Reason: Agitation Last Admin: 02/26/18 06:53 Dose: 1 mg Losartan Potassium (Cozaar) 100 mg PO DAILY [facility] Last Admin: 02/25/18 09:00 Dose: Not Given Morphine Sulfate (Morphine) 5 mg IVP Q4H PRN PRN Reason: Pain, severe (8-10) Last Admin: 02/28/18 04:21 Dose: 5 mg Nitroglycerin (Nitrostat Sl Tab) 0.4 mg SL Q5MIN PRN PRN Reason: Chest pain Olopatadine HCl (Patanol 0.1% Opht Soln) 1 drop OU DAILY [facility] Last Admin: 02/27/18 10:01 Dose: 1 drop Ondansetron HCl (Zofran Inj) 4 mg IVP Q4 PRN PRN Reason: Nausea/Vomiting Last Admin: 02/20/18 03:54 Dose: 4 mg Pantoprazole Sodium (Protonix Inj) 40 mg IVP DAILY [facility] Last Admin: 02/27/18 10:00 Dose: 40 mg Potassium Chloride (K-Dur 20 Meq Er Tab) 20 meq PO QPM [facility] Last Admin: 02/24/18 17:28 Dose: 20 meq Fluticasone/Salmeterol (Advair Diskus 250/50) 1 puff IH Q12 [facility] Last Admin: 02/25/18 08:59 Dose: Not Given - Labs Labs: 02/28/18 05:30 02/28/18 05:30 PT 19.0 Seconds (9.8-13.1) H 02/27/18 05:30 INR 1.7 (0.9-1.2) H 02/27/18 05:30 APTT 35.9 Seconds (25.6-37.1) 02/26/18 04:35 - Constitutional Appears: Non-toxic, No Acute Distress - Respiratory Exam Respiratory Exam: Clear to Ausculation Bilateral, NORMAL BREATHING PATTERN - Cardiovascular Exam Cardiovascular Exam: REGULAR RHYTHM, +S1, +S2 - GI/Abdominal Exam GI & Abdominal Exam: Soft. absent: Distended, Firm, Guarding, Rigid, Tenderness , Rebound Additional comments: stoma pink Incision CDI - Extremities Exam Extremities Exam: absent: Pedal Edema, Tenderness - Neurological Exam Neurological Exam: Awake - Skin Skin Exam: Dry, Intact, Normal Color, Warm Assessment and Plan - Assessment and Plan (Free Text) Assessment: 87 F who is s/p ex lap for rectosigmoid perforation and free air with rescetion and colostomy POD#3 -ADAT -Continue IV antibiotics -Pain control -Strict I's & O's -Monitor output colostomy Further recs discuss with Dr. Danyel Ellis, PGY2
[2018-02-28] MEDS ORDERED: Digoxin 500 mcg/2ml (0.5 mg/2ml) Inj IVP SCH (09:00)
[2018-02-28] MEDS: Olopatadine 0.1% Opht SOLN OU SCH (10:03)
[2018-02-28 10:05] VITALS: PULSE 94
--- NOTE | 2018-02-28 10:24 | CP.PCM.PN ---
Subjective - Date & Time of Evaluation Date of Evaluation: 02/28/18 Time of Evaluation: 10:00 - Subjective Subjective: Pt is afebrile Leukocytosis worse more alert today + abd pain NGT in place No stool in Colostomy bag Pt on Ventimask - 50% Objective - Vital Signs/Intake and Output Vital Signs (last 24 hours): Temp Pulse Resp BP Pulse Ox 98.3 F 94 H 10 L 140/60 99 02/28/18 08:00 02/28/18 08:00 02/28/18 08:00 02/28/18 08:00 02/28/18 08:00 Intake and Output: 02/28/18 02/28/18 06:59 18:59 Intake Total 1500 Output Total 480 Balance 1020 - Medications Medications: Current Medications Acetaminophen (Tylenol 650 Mg Supp) 650 mg [place] Q6 PRN PRN Reason: Fever >100.4 F Last Admin: 02/25/18 23:26 Dose: 650 mg Albuterol/Ipratropium (Duoneb 3 Mg/0.5 Mg (3 Ml) Ud) [address] [facility] Last Admin: 02/28/18 08:00 Dose: 3 ml Atorvastatin Calcium (Lipitor) [address] [facility] Last Admin: 02/24/18 17:29 Dose: 40 mg Digoxin (Lanoxin) 0.[address] [facility] Last Admin: 02/28/18 10:02 Dose: 0.125 mg Diltiazem HCl (Cardizem) [address] [facility] Last Admin: 02/25/18 08:59 Dose: Not Given Furosemide (Lasix) [address] [facility] Last Admin: 02/25/18 09:00 Dose: Not Given Hydromorphone HCl (Dilaudid) 1 mg IVP Q4 PRN PRN Reason: Pain, moderate (4-7) Last Admin: 02/26/18 23:53 Dose: 1 mg Iron Sucrose 100 mg/ Sodium (Chloride) 105 mls @ 105 mls/hr IVPB DAILY [facility] Last Admin: 02/28/18 10:05 Dose: 105 mls/hr Piperacillin Sod/Tazobactam (Sod 4.5 gm/ Sodium Chloride) 100 mls @ 100 mls/hr IVPB Q6 JOSE A PRN Reason: Protocol Last Admin: 02/28/18 10:04 Dose: 100 mls/hr Metronidazole (Flagyl 500mg/100ml Ns) 100 mls @ 100 mls/hr IVPB Q8 JOSE A PRN Reason: Protocol Last Admin: 02/28/18 10:02 Dose: 100 mls/hr Lactated Ringer's (Lactated Ringer's) 1,000 mls @ 150 mls/hr IV .Q6H40M [facility] Last Admin: 02/27/18 23:56 Dose: 150 mls/hr Ceftriaxone Sodium 1 gm/ (Sodium Chloride) 100 mls @ 100 mls/hr IVPB DAILY [facility] PRN Reason: Protocol Last Admin: 02/28/18 10:07 Dose: 100 mls/hr Ketorolac Tromethamine (Toradol) 15 mg IVP Q6 PRN PRN Reason: Pain, severe (8-10) Levothyroxine Sodium (Synthroid) 175 mcg PO DAILY@0630 [facility] Last Admin: 02/25/18 09:01 Dose: Not Given Lorazepam (Ativan) 1 mg IVP Q4 PRN PRN Reason: Agitation Last Admin: 02/26/18 06:53 Dose: 1 mg Losartan Potassium (Cozaar) [address] [facility] Last Admin: 02/25/18 09:00 Dose: Not Given Morphine Sulfate (Morphine) 5 mg IVP Q4H PRN PRN Reason: Pain, severe (8-10) Last Admin: 02/28/18 04:21 Dose: 5 mg Nitroglycerin (Nitrostat Sl Tab) 0.4 mg SL Q5MIN PRN PRN Reason: Chest pain Olopatadine HCl (Patanol 0.1% Opht Soln) [address] [facility] Last Admin: 02/28/18 10:03 Dose: 1 drop Ondansetron HCl (Zofran Inj) 4 mg IVP Q4 PRN PRN Reason: Nausea/Vomiting Last Admin: 02/20/18 03:54 Dose: 4 mg Pantoprazole Sodium (Protonix Inj) [address] [facility] Last Admin: 02/28/18 10:06 Dose: 40 mg Potassium Chloride (K-Dur 20 Meq Er Tab) [address] [facility] Last Admin: 02/24/18 17:28 Dose: 20 meq Fluticasone/Salmeterol (Advair Diskus 250/50) [address] [facility] Last Admin: 02/25/18 08:59 Dose: Not Given - Labs Labs: 02/28/18 05:30 02/28/18 05:30 PT 19.0 Seconds (9.8-13.1) H 02/27/18 05:30 INR 1.7 (0.9-1.2) H 02/27/18 05:30 APTT 35.9 Seconds (25.6-37.1) 02/26/18 04:35 - Constitutional Appears: No Acute Distress - Head Exam Head Exam: NORMAL INSPECTION, NORMOCEPHALIC - Eye Exam Eye Exam: EOMI, Normal appearance Pupil Exam: NORMAL ACCOMODATION - ENT Exam ENT Exam: Mucous Membranes Dry, Normal External Ear Exam - Neck Exam Neck Exam: Full ROM. absent: Meningismus - Respiratory Exam Respiratory Exam: Rhonchi, NORMAL BREATHING PATTERN. absent: Respiratory Distress - Cardiovascular Exam Cardiovascular Exam: Tachycardia, Irregular Rhythm, +S1, +S2 - GI/Abdominal Exam GI & Abdominal Exam: Tenderness, Normal Bowel Sounds Additional comments: NGT in place Left Colostomy - empty Midline Surgical wound with alaina intact - Extremities Exam Extremities Exam: Full ROM, Normal Capillary Refill. absent: Calf Tenderness - Back Exam Back Exam: absent: CVA tenderness (L), CVA tenderness (R) - Neurological Exam Neurological Exam: Awake, CN II-XII Intact Additional comments: oriented to person - Psychiatric Exam Psychiatric exam: Flat Affect - Skin Skin Exam: Dry, Pallor, Warm Assessment and Plan - Assessment and Plan (Free Text) Assessment: 87 year old female with a past medical history significant for coronary artery disease, essential hypertension, atrial fibrillation (was on Eliquis starting 1 month ago), congestive heart failure, type 2 DM, COPD, diverticulitis, sleep apnea, and hypothyroidism, admitted to ICU for upper GI bleed. Patient's hgb found to be 5.2 on admission . She was transfused 2 unit PRBC , GI consulted and underwent EGD that showed no active bleed. Eliquis on hold since admission. No more bleeding episodes noted since admission . She was started empirically on Zosyn after spiking fever 02/23 and being somewhat sleepy. Urine cx reported as < [id number] colonies of mixed tarah. Taken for colonoscopy 02/[address] Calvert that showed diverticulosis, no active bleed. Post colonoscopy developed severe intractable abdominal pain secondary to colon perforation . Taken to OR and underwent Emergency exploratory laparatomy with sigmoid resection and sigmoid colostomy. Transfused 2 PRBC and 2 FFP in OR . Maintained intubated post op and monitored in ICU. Extubated on 02/26 Afib with RVR on monitor post op . Sedated with morphine PRN 1. Colon perforation post colonoscopy s/p exploratory laparatomy with sigmoid resection and colostomy 02/25 Surgery following pt transfused 2 PRBC and 2 FFP in OR Continue IVF hydration. Monitor I/O closely since patient has CHF On Zosyn and Flagyl IV empirically On Morphine PRN for pain control and sedation ID consulted 2. Acute blood loss anemia secondary to GI bleed with melena Hgb 5.2 on admission s/p total 6 units PRBC transfusion ( as per blood bank ) Hold Eliquis On Protonix IV cont Venofer IV GI following . EGD and colonoscopy showed no active bleeding 3. Diastolic chronic CHF (congestive heart failure), without exacerbation stable hold Lasix 40mg , Metoprolol and Losartan for now ECHO: normal LV function on previous admission. Monitor I/O closely 4. COPD (chronic obstructive pulmonary disease), mild exacerbation Maintained intubated post op Will try to wean off vent today Dr Otto on consult Continue Duonebs 5. CAD (coronary artery disease) Chronic Holding ASA and Eliquis due to GI bleed losartan and BB on hold 6. Hypertension Hold po BP meds monitor closely 7. Atrial fibrillation with RVR Digoxin IV given Eliquis on hold, rpt INR as noted some coagulopathy Cardizem on hold 8. Diabetes mellitus, type II Chronic Insulin sliding scale. metformin on hold 9. Hypothyroidism Chronic on levothyroxine 175mcg PO daily 10. DVT prophylaxis SCDs, no anticoag sec to GIB
--- NOTE | 2018-02-28 10:55 | CP.PCM.PN ---
Subjective - Date & Time of Evaluation Date of Evaluation: 02/28/18 Time of Evaluation: 10:56 - Subjective Subjective: NO ACUTE DISTRESS VSS MORE RESPONSIVE TODAY Objective - Vital Signs/Intake and Output Vital Signs (last 24 hours): Temp Pulse Resp BP Pulse Ox 98.3 F 94 H 10 L 140/60 99 02/28/18 08:00 02/28/18 08:00 02/28/18 08:00 02/28/18 08:00 02/28/18 08:00 Intake and Output: 02/28/18 02/28/18 06:59 18:59 Intake Total 1500 Output Total 480 Balance 1020 - Medications Medications: Current Medications Acetaminophen (Tylenol 650 Mg Supp) 650 mg [place] Q6 PRN PRN Reason: Fever >100.4 F Last Admin: 02/25/18 23:26 Dose: 650 mg Albuterol/Ipratropium (Duoneb 3 Mg/0.5 Mg (3 Ml) Ud) 3 ml INH RQID [facility] Last Admin: 02/28/18 08:00 Dose: 3 ml Atorvastatin Calcium (Lipitor) 40 mg PO QPM [facility] Last Admin: 02/24/18 17:29 Dose: 40 mg Digoxin (Lanoxin) 0.125 mg IVP DAILY [facility] Last Admin: 02/28/18 10:02 Dose: 0.125 mg Diltiazem HCl (Cardizem) 30 mg PO TID [facility] Last Admin: 02/25/18 08:59 Dose: Not Given Furosemide (Lasix) 40 mg PO DAILY [facility] Last Admin: 02/25/18 09:00 Dose: Not Given Hydromorphone HCl (Dilaudid) 1 mg IVP Q4 PRN PRN Reason: Pain, moderate (4-7) Last Admin: 02/26/18 23:53 Dose: 1 mg Iron Sucrose 100 mg/ Sodium (Chloride) 105 mls @ 105 mls/hr IVPB DAILY [facility] Last Admin: 02/28/18 10:05 Dose: 105 mls/hr Piperacillin Sod/Tazobactam (Sod 4.5 gm/ Sodium Chloride) 100 mls @ 100 mls/hr IVPB Q6 [facility] PRN Reason: Protocol Last Admin: 02/28/18 10:04 Dose: 100 mls/hr Metronidazole (Flagyl 500mg/100ml Ns) 100 mls @ 100 mls/hr IVPB Q8 [facility] PRN Reason: Protocol Last Admin: 02/28/18 10:02 Dose: 100 mls/hr Lactated Ringer's (Lactated Ringer's) 1,000 mls @ 150 mls/hr IV .Q6H40M [facility] Last Admin: 02/27/18 23:56 Dose: 150 mls/hr Ceftriaxone Sodium 1 gm/ (Sodium Chloride) 100 mls @ 100 mls/hr IVPB DAILY [facility] PRN Reason: Protocol Last Admin: 02/28/18 10:07 Dose: 100 mls/hr Ketorolac Tromethamine (Toradol) 15 mg IVP Q6 PRN PRN Reason: Pain, severe (8-10) Levothyroxine Sodium (Synthroid) 175 mcg PO DAILY@0630 [facility] Last Admin: 02/25/18 09:01 Dose: Not Given Lorazepam (Ativan) 1 mg IVP Q4 PRN PRN Reason: Agitation Last Admin: 02/26/18 06:53 Dose: 1 mg Losartan Potassium (Cozaar) 100 mg PO DAILY [facility] Last Admin: 02/25/18 09:00 Dose: Not Given Morphine Sulfate (Morphine) 5 mg IVP Q4H PRN PRN Reason: Pain, severe (8-10) Last Admin: 02/28/18 04:21 Dose: 5 mg Nitroglycerin (Nitrostat Sl Tab) 0.4 mg SL Q5MIN PRN PRN Reason: Chest pain Olopatadine HCl (Patanol 0.1% Opht Soln) 1 drop OU DAILY [facility] Last Admin: 02/28/18 10:03 Dose: 1 drop Ondansetron HCl (Zofran Inj) 4 mg IVP Q4 PRN PRN Reason: Nausea/Vomiting Last Admin: 02/20/18 03:54 Dose: 4 mg Pantoprazole Sodium (Protonix Inj) 40 mg IVP DAILY [facility] Last Admin: 02/28/18 10:06 Dose: 40 mg Potassium Chloride (K-Dur 20 Meq Er Tab) 20 meq PO QPM [facility] Last Admin: 02/24/18 17:28 Dose: 20 meq Fluticasone/Salmeterol (Advair Diskus 250/50) 1 puff IH Q12 [facility] Last Admin: 02/25/18 08:59 Dose: Not Given - Labs Labs: 02/28/18 05:30 04/21/18 05:30 PT 19.0 Seconds (9.8-13.1) H 02/27/18 05:30 INR 1.7 (0.9-1.2) H 02/27/18 05:30 APTT 35.9 Seconds (25.6-37.1) 02/26/18 04:35 - Constitutional Appears: No Acute Distress - Head Exam Head Exam: ATRAUMATIC, NORMAL INSPECTION, NORMOCEPHALIC - Eye Exam Eye Exam: EOMI, Normal appearance, PERRL Pupil Exam: NORMAL ACCOMODATION, PERRL - ENT Exam ENT Exam: Mucous Membranes Moist, Normal Exam - Neck Exam Neck Exam: Full ROM, Normal Inspection. absent: Lymphadenopathy - Respiratory Exam Respiratory Exam: Prolonged Expiratory Phase, Rales Additional comments: ON FACE MASK - Cardiovascular Exam Cardiovascular Exam: REGULAR RHYTHM, +S1, +S2. absent: Murmur - GI/Abdominal Exam GI & Abdominal Exam: Soft, Tenderness, Normal Bowel Sounds - Rectal Exam Rectal Exam: NORMAL INSPECTION - Extremities Exam Extremities Exam: Full ROM, Normal Capillary Refill, Normal Inspection. absent : Joint Swelling, Pedal Edema - Back Exam Back Exam: NORMAL INSPECTION - Neurological Exam Neurological Exam: Alert, Awake, CN II-XII Intact - Psychiatric Exam Psychiatric exam: Normal Affect, Normal Mood - Skin Skin Exam: Dry, Intact, Normal Color, Warm Assessment and Plan - Assessment and Plan (Free Text) Assessment: S/P COLON RESECTION COPD ANEMIA Plan: CONTINUE CURRENT RX
[2018-02-28] MEDS: Lactated Ringer's 1,000 ML IV SCH ×2 (16:06→20:34)
[2018-02-28] MEDS: Fluticasone-Salmeterol 250-50mcg Diskus IH SCH (20:35)
[2018-03-01] MEDS: metroNIDAZOLE 500mg/100ml NS 100 ML IVPB SCH ×3 (00:37→16:08)
[2018-03-01] MEDS: Lactated Ringer's 1,000 ML IV SCH ×2 (05:25→22:05)
[2018-03-01] MEDS: Albuterol-Ipratrop 3 mg / 0.5 (3 ml) UD INH SCH ×4 (07:16→19:18)
[2018-03-01 07:36] LABS: BASO % 0.2 % (0.0-2.0); EOS # 0.1 K/uL (0.0-0.7); EOS % 0.6 % (0.0-4.0); HEMOGLOBIN 8.8 g/dL (12.0-16.0); LYMPH # 0.9 K/uL (1.0-4.3); LYMPH % 6.1 % (20.0-40.0); MEAN CELL VOLUME 92.2 fl (81.0-99.0); MEAN CORPUSCULAR HEMOGLOBIN 29.6 pg (27.0-31.0); MEAN CORPUSCULAR HGB CONC 32.1 g/dL (33.0-37.0); MEAN PLATELET VOLUME 8.6 fl (7.2-11.7); MONO # 1.1 K/uL (0.0-0.8); MONO % 7.6 % (0.0-10.0); NEUT # 12.1 K/uL (1.8-7.0); NEUT % 85.5 % (50.0-75.0); PLATELET COUNT 243 K/uL (130-400); RBC 2.99 Mil/uL (3.80-5.20); RED CELL DISTRIBUTION WIDTH 20.8 % (11.5-14.5); WHITE BLOOD COUNT 14.1 K/uL (4.8-10.8)
[2018-03-01 07:39] LABS: BLOOD UREA NITROGEN 20 mg/dl (7-17); CALCIUM 8.4 mg/dL (8.4-10.2); GFR AFRICAN-AMERICAN > 60; GFR NON-AFRICAN AMERICAN > 60
--- NOTE | 2018-03-01 07:56 | CP.PCM.PN ---
Subjective - Date & Time of Evaluation Date of Evaluation: 03/01/18 Time of Evaluation: 06:48 - Subjective Subjective: General Surgery Note for Dr. Montaño Patient seen and examined at bedside. No acute event overnight. Patient still with abd pain. No output from colostomy overnight. Objective - Vital Signs/Intake and Output Vital Signs (last 24 hours): Temp Pulse Resp BP Pulse Ox 98.5 F 90 19 158/65 H 99 03/01/18 04:00 03/01/18 06:00 03/01/18 06:00 03/01/18 06:00 03/01/18 06:00 Intake and Output: 03/01/18 03/01/18 06:59 18:59 Intake Total 1800 Balance 1800 - Medications Medications: Current Medications Acetaminophen (Tylenol 650 Mg Supp) 650 mg [place] Q6 PRN PRN Reason: Fever >100.4 F Last Admin: 02/25/18 23:26 Dose: 650 mg Albuterol/Ipratropium (Duoneb 3 Mg/0.5 Mg (3 Ml) Ud) 3 ml INH RQID [facility] Last Admin: 03/01/18 07:16 Dose: 3 ml Atorvastatin Calcium (Lipitor) 40 mg PO QPM [facility] Last Admin: 02/24/18 17:29 Dose: 40 mg Diltiazem HCl (Cardizem) 30 mg PO TID [facility] Last Admin: 02/25/18 08:59 Dose: Not Given Furosemide (Lasix) 40 mg PO DAILY [facility] Last Admin: 02/25/18 09:00 Dose: Not Given Hydromorphone HCl (Dilaudid) 1 mg IVP Q4 PRN PRN Reason: Pain, moderate (4-7) Last Admin: 02/26/18 23:53 Dose: 1 mg Iron Sucrose 100 mg/ Sodium (Chloride) 105 mls @ 105 mls/hr IVPB DAILY [facility] Last Admin: 02/28/18 10:05 Dose: 105 mls/hr Metronidazole (Flagyl 500mg/100ml Ns) 100 mls @ 100 mls/hr IVPB Q8 [facility] PRN Reason: Protocol Last Admin: 03/01/18 00:37 Dose: 100 mls/hr Lactated Ringer's (Lactated Ringer's) 1,000 mls @ 150 mls/hr IV .Q6H40M [facility] Last Admin: 03/01/18 05:25 Dose: 150 mls/hr Ceftriaxone Sodium 1 gm/ (Sodium Chloride) 100 mls @ 100 mls/hr IVPB DAILY [facility] PRN Reason: Protocol Last Admin: 02/28/18 10:07 Dose: 100 mls/hr Ketorolac Tromethamine (Toradol) 15 mg IVP Q6 PRN PRN Reason: Pain, severe (8-10) Last Admin: 02/28/18 13:26 Dose: 15 mg Levothyroxine Sodium (Synthroid) 175 mcg PO DAILY@0630 [facility] Last Admin: 02/25/18 09:01 Dose: Not Given Losartan Potassium (Cozaar) 100 mg PO DAILY [facility] Last Admin: 02/25/18 09:00 Dose: Not Given Morphine Sulfate (Morphine) 5 mg IVP Q4H PRN PRN Reason: Pain, severe (8-10) Last Admin: 03/01/18 00:38 Dose: 5 mg Nitroglycerin (Nitrostat Sl Tab) 0.4 mg SL Q5MIN PRN PRN Reason: Chest pain Olopatadine HCl (Patanol 0.1% Opht Soln) 1 drop OU DAILY [facility] Last Admin: 02/28/18 10:03 Dose: 1 drop Ondansetron HCl (Zofran Inj) 4 mg IVP Q4 PRN PRN Reason: Nausea/Vomiting Last Admin: 02/20/18 03:54 Dose: 4 mg Pantoprazole Sodium (Protonix Inj) 40 mg IVP DAILY [facility] Last Admin: 02/28/18 10:06 Dose: 40 mg Potassium Chloride (K-Dur 20 Meq Er Tab) 20 meq PO QPM [facility] Last Admin: 02/24/18 17:28 Dose: 20 meq Fluticasone/Salmeterol (Advair Diskus 250/50) 1 puff IH Q12 [facility] Last Admin: 02/28/18 20:35 Dose: 1 puff - Labs Labs: 02/28/18 05:30 03/01/18 05:20 PT 19.0 Seconds (9.8-13.1) H 02/27/18 05:30 INR 1.7 (0.9-1.2) H 02/27/18 05:30 APTT 35.9 Seconds (25.6-37.1) 02/26/18 04:35 - Constitutional Appears: No Acute Distress - Head Exam Head Exam: ATRAUMATIC, NORMOCEPHALIC - Eye Exam Eye Exam: Normal appearance - ENT Exam ENT Exam: Mucous Membranes Moist - Respiratory Exam Respiratory Exam: NORMAL BREATHING PATTERN - Cardiovascular Exam Cardiovascular Exam: REGULAR RHYTHM - GI/Abdominal Exam GI & Abdominal Exam: Soft, Tenderness (mild incisional). absent: Distended, Firm, Guarding, Rebound Additional comments: colostomy in LLQ - pink and patent midline incision with alaina - clean dry and intact - Extremities Exam Extremities Exam: Normal Capillary Refill - Neurological Exam Neurological Exam: Awake - Psychiatric Exam Psychiatric exam: Flat Affect - Skin Skin Exam: Dry, Intact, Warm Assessment and Plan - Assessment and Plan (Free Text) Plan: 87 F who is s/p ex lap for rectosigmoid perforation and free air with resection and colostomy POD#4 -NPO -Continue IV antibiotics -Pain control -Strict I's & O's -Monitor output colostomy -Further recommendations as per Dr. Danyel Ramirez PGY1
[2018-03-01 08:12] LABS: INR 1.4 (0.9-1.2); PROTHROMBIN TIME 15.4 Seconds (9.8-13.1)
[2018-03-01] MEDS: Fluticasone-Salmeterol 250-50mcg Diskus IH SCH ×2 (08:38→22:04)
[2018-03-01] MEDS: Olopatadine 0.1% Opht SOLN OU SCH (08:39)
[2018-03-01] MEDS: Levothyroxine 175 MCG TAB PO SCH (08:41)
--- NOTE | 2018-03-01 09:30 | CP.PCM.PN ---
Subjective - Date & Time of Evaluation Date of Evaluation: 03/01/18 Time of Evaluation: 09:29 - Subjective Subjective: NO SOB MORE ALERT AND RESPONSIVE TODAY Objective - Vital Signs/Intake and Output Vital Signs (last 24 hours): Temp Pulse Resp BP Pulse Ox 98.4 F 97 H 16 170/72 H 94 L 03/01/18 08:00 03/01/18 08:38 03/01/18 08:00 03/01/18 08:38 03/01/18 08:00 Intake and Output: 03/01/18 03/01/18 06:59 18:59 Intake Total 1800 Balance 1800 - Medications Medications: Current Medications Acetaminophen (Tylenol 650 Mg Supp) 650 mg OK Q6 PRN PRN Reason: Fever >100.4 F Last Admin: 02/25/18 23:26 Dose: 650 mg Albuterol/Ipratropium (Duoneb 3 Mg/0.5 Mg (3 Ml) Ud) 3 ml INH RQID [facility] Last Admin: 03/01/18 07:16 Dose: 3 ml Atorvastatin Calcium (Lipitor) 40 mg PO QPM [facility] Last Admin: 02/24/18 17:29 Dose: 40 mg Diltiazem HCl (Cardizem) 30 mg PO TID [facility] Last Admin: 02/25/18 08:59 Dose: Not Given Furosemide (Lasix) 40 mg PO DAILY [facility] Last Admin: 02/25/18 09:00 Dose: Not Given Hydromorphone HCl (Dilaudid) 1 mg IVP Q4 PRN PRN Reason: Pain, moderate (4-7) Last Admin: 02/26/18 23:53 Dose: 1 mg Iron Sucrose 100 mg/ Sodium (Chloride) 105 mls @ 105 mls/hr IVPB DAILY [facility] Last Admin: 03/01/18 08:41 Dose: 105 mls/hr Metronidazole (Flagyl 500mg/100ml Ns) 100 mls @ 100 mls/hr IVPB Q8 JOSE A PRN Reason: Protocol Last Admin: 03/01/18 08:39 Dose: 100 mls/hr Lactated Ringer's (Lactated Ringer's) 1,000 mls @ 150 mls/hr IV .Q6H40M [facility] Last Admin: 03/01/18 05:25 Dose: 150 mls/hr Ceftriaxone Sodium 1 gm/ (Sodium Chloride) 100 mls @ 100 mls/hr IVPB DAILY JOSE A PRN Reason: Protocol Last Admin: 03/01/18 08:40 Dose: 100 mls/hr Ketorolac Tromethamine (Toradol) 15 mg IVP Q6 PRN PRN Reason: Pain, severe (8-10) Last Admin: 02/28/18 13:26 Dose: 15 mg Levothyroxine Sodium (Synthroid) 175 mcg PO DAILY@0630 [facility] Last Admin: 03/01/18 08:41 Dose: 175 mcg Losartan Potassium (Cozaar) 100 mg PO DAILY [facility] Last Admin: 03/01/18 08:38 Dose: 100 mg Morphine Sulfate (Morphine) 5 mg IVP Q4H PRN PRN Reason: Pain, severe (8-10) Last Admin: 03/01/18 07:57 Dose: 5 mg Nitroglycerin (Nitrostat Sl Tab) 0.4 mg SL Q5MIN PRN PRN Reason: Chest pain Olopatadine HCl (Patanol 0.1% Opht Soln) 1 drop OU DAILY [facility] Last Admin: 03/01/18 08:39 Dose: 1 drop Ondansetron HCl (Zofran Inj) 4 mg IVP Q4 PRN PRN Reason: Nausea/Vomiting Last Admin: 02/20/18 03:54 Dose: 4 mg Pantoprazole Sodium (Protonix Inj) 40 mg IVP DAILY [facility] Last Admin: 03/01/18 08:40 Dose: 40 mg Potassium Chloride (K-Dur 20 Meq Er Tab) 20 meq PO QPM [facility] Last Admin: 02/24/18 17:28 Dose: 20 meq Fluticasone/Salmeterol (Advair Diskus 250/50) 1 puff IH Q12 [facility] Last Admin: 03/01/18 08:38 Dose: 1 puff - Labs Labs: 03/01/18 05:20 03/01/18 05:20 PT 15.4 Seconds (9.8-13.1) H 03/01/18 05:20 INR 1.4 (0.9-1.2) H 03/01/18 05:20 APTT 35.9 Seconds (25.6-37.1) 02/26/18 04:35 - Constitutional Appears: Chronically Ill - Head Exam Head Exam: ATRAUMATIC, NORMAL INSPECTION, NORMOCEPHALIC - Eye Exam Eye Exam: EOMI, Normal appearance, PERRL Pupil Exam: NORMAL ACCOMODATION, PERRL - ENT Exam ENT Exam: Mucous Membranes Moist, Normal Exam - Neck Exam Neck Exam: Full ROM, Normal Inspection. absent: Lymphadenopathy - Respiratory Exam Respiratory Exam: Prolonged Expiratory Phase, Rales, NORMAL BREATHING PATTERN - Cardiovascular Exam Cardiovascular Exam: REGULAR RHYTHM, +S1, +S2. absent: Murmur - GI/Abdominal Exam GI & Abdominal Exam: Soft, Tenderness, Normal Bowel Sounds - Rectal Exam Rectal Exam: NORMAL INSPECTION - Extremities Exam Extremities Exam: Full ROM, Normal Capillary Refill, Normal Inspection. absent : Joint Swelling, Pedal Edema - Back Exam Back Exam: NORMAL INSPECTION - Neurological Exam Neurological Exam: Alert, Awake, CN II-XII Intact - Psychiatric Exam Psychiatric exam: Normal Affect, Normal Mood - Skin Skin Exam: Dry, Intact, Normal Color, Warm Assessment and Plan - Assessment and Plan (Free Text) Assessment: S/P COLON RESECTION WITH COLOSTOMY COPD Plan: CONTINUE CURRENT RX
[2018-03-01 09:50] LABS: LYMPHOCYTE 6 % (20-50); MONOCYTE 7 % (0-10); NEUTROPHIL 87 % (42-75); PLATELET ESTIMATE NORMAL (NORMAL); TOTAL CELLS COUNTED 100
[2018-03-01 09:51] LABS: ANISOCYTOSIS SLIGHT; OVALOCYTES MODERATE
[2018-03-01 09:52] LABS: LARGE PLATELETS PRESENT
--- NOTE | 2018-03-01 11:15 | CP.PCM.PN ---
Subjective - Date & Time of Evaluation Date of Evaluation: 03/01/18 Time of Evaluation: 11:00 - Subjective Subjective: No fever episodes of confusion started on Clear liquid diet NGT clamped tolerated liquid diet given last night Objective - Vital Signs/Intake and Output Vital Signs (last 24 hours): Temp Pulse Resp BP Pulse Ox 98.4 F 82 13 163/60 H 95 03/01/18 08:00 03/01/18 10:00 03/01/18 10:00 03/01/18 10:00 03/01/18 10:00 Intake and Output: 03/01/18 03/01/18 06:59 18:59 Intake Total 1800 750 Balance 1800 750 - Medications Medications: Current Medications Acetaminophen (Tylenol 650 Mg Supp) 650 mg MO Q6 PRN PRN Reason: Fever >100.4 F Last Admin: 02/25/18 23:26 Dose: 650 mg Albuterol/Ipratropium (Duoneb 3 Mg/0.5 Mg (3 Ml) Ud) 3 ml INH RQID [facility] Last Admin: 03/01/18 11:07 Dose: 3 ml Atorvastatin Calcium (Lipitor) 40 mg PO QPM [facility] Last Admin: 02/24/18 17:29 Dose: 40 mg Diltiazem HCl (Cardizem) 30 mg PO TID [facility] Last Admin: 02/25/18 08:59 Dose: Not Given Furosemide (Lasix) 40 mg PO DAILY [facility] Last Admin: 02/25/18 09:00 Dose: Not Given Hydromorphone HCl (Dilaudid) 1 mg IVP Q4 PRN PRN Reason: Pain, moderate (4-7) Last Admin: 02/26/18 23:53 Dose: 1 mg Iron Sucrose 100 mg/ Sodium (Chloride) 105 mls @ 105 mls/hr IVPB DAILY [facility] Last Admin: 03/01/18 08:41 Dose: 105 mls/hr Metronidazole (Flagyl 500mg/100ml Ns) 100 mls @ 100 mls/hr IVPB Q8 JOSE A PRN Reason: Protocol Last Admin: 03/01/18 08:39 Dose: 100 mls/hr Lactated Ringer's (Lactated Ringer's) 1,000 mls @ 150 mls/hr IV .Q6H40M [facility] Last Admin: 03/01/18 05:25 Dose: 150 mls/hr Ceftriaxone Sodium 1 gm/ (Sodium Chloride) 100 mls @ 100 mls/hr IVPB DAILY JOSE A PRN Reason: Protocol Last Admin: 03/01/18 08:40 Dose: 100 mls/hr Ketorolac Tromethamine (Toradol) 15 mg IVP Q6 PRN PRN Reason: Pain, severe (8-10) Last Admin: 02/28/18 13:26 Dose: 15 mg Levothyroxine Sodium (Synthroid) 175 mcg PO DAILY@0630 [facility] Last Admin: 03/01/18 08:41 Dose: 175 mcg Losartan Potassium (Cozaar) 100 mg PO DAILY [facility] Last Admin: 03/01/18 08:38 Dose: 100 mg Morphine Sulfate (Morphine) 5 mg IVP Q4H PRN PRN Reason: Pain, severe (8-10) Last Admin: 03/01/18 07:57 Dose: 5 mg Nitroglycerin (Nitrostat Sl Tab) 0.4 mg SL Q5MIN PRN PRN Reason: Chest pain Olopatadine HCl (Patanol 0.1% Opht Soln) 1 drop OU DAILY [facility] Last Admin: 03/01/18 08:39 Dose: 1 drop Ondansetron HCl (Zofran Inj) 4 mg IVP Q4 PRN PRN Reason: Nausea/Vomiting Last Admin: 02/20/18 03:54 Dose: 4 mg Pantoprazole Sodium (Protonix Inj) 40 mg IVP DAILY [facility] Last Admin: 03/01/18 08:40 Dose: 40 mg Potassium Chloride (K-Dur 20 Meq Er Tab) 20 meq PO QPM [facility] Last Admin: 02/24/18 17:28 Dose: 20 meq Fluticasone/Salmeterol (Advair Diskus 250/50) 1 puff IH Q12 [facility] Last Admin: 03/01/18 08:38 Dose: 1 puff - Labs Labs: 03/01/18 05:20 03/01/18 05:20 PT 15.4 Seconds (9.8-13.1) H 03/01/18 05:20 INR 1.4 (0.9-1.2) H 03/01/18 05:20 APTT 35.9 Seconds (25.6-37.1) 02/26/18 04:35 - Constitutional Appears: No Acute Distress - Head Exam Head Exam: NORMAL INSPECTION, NORMOCEPHALIC - Eye Exam Eye Exam: EOMI, Normal appearance Pupil Exam: NORMAL ACCOMODATION - ENT Exam ENT Exam: Mucous Membranes Dry, Normal External Ear Exam - Neck Exam Neck Exam: Full ROM. absent: Meningismus - Respiratory Exam Respiratory Exam: Rhonchi, NORMAL BREATHING PATTERN. absent: Respiratory Distress - Cardiovascular Exam Cardiovascular Exam: Tachycardia, Irregular Rhythm, +S1, +S2 - GI/Abdominal Exam GI & Abdominal Exam: Tenderness, Normal Bowel Sounds Additional comments: NGT in place Left Colostomy - minimal serosanguinous fluid Midline Surgical wound with alaina intact - Extremities Exam Extremities Exam: Full ROM, Normal Capillary Refill. absent: Calf Tenderness - Back Exam Back Exam: absent: CVA tenderness (L), CVA tenderness (R) - Neurological Exam Neurological Exam: Awake, CN II-XII Intact Additional comments: oriented to person - Psychiatric Exam Psychiatric exam: Flat Affect - Skin Skin Exam: Dry, Pallor, Warm Assessment and Plan - Assessment and Plan (Free Text) Assessment: 87 year old female with a past medical history significant for coronary artery disease, essential hypertension, atrial fibrillation (was on Eliquis starting 1 month ago), congestive heart failure, type 2 DM, COPD, diverticulitis, sleep apnea, and hypothyroidism, admitted to ICU for upper GI bleed. Patient's hgb found to be 5.2 on admission . She was transfused 2 unit PRBC , GI consulted and underwent EGD that showed no active bleed. Eliquis on hold since admission. No more bleeding episodes noted since admission . She was started empirically on Zosyn after spiking fever 16 and being somewhat sleepy. Urine cx reported as < [id number] colonies of mixed tarah. Taken for colonoscopy 02/[address] Calvert that showed diverticulosis, no active bleed. Post colonoscopy developed severe intractable abdominal pain secondary to colon perforation . Taken to OR and underwent Emergency exploratory laparatomy with sigmoid resection and sigmoid colostomy. Transfused 2 PRBC and 2 FFP in OR . Maintained intubated post op and monitored in ICU. Extubated on 02/26 Afib with RVR on monitor post op . Digoxin IV started 1. Colon perforation post colonoscopy s/p exploratory laparatomy with sigmoid resection and colostomy 02/25 Surgery following pt Continue IVF hydration. Monitor I/O closely since patient has CHF On Zosyn and Flagyl IV empirically - WBC ct still elevated , Abx changed to Ceftriaxone by Surgery On Morphine PRN for pain control and sedation ID consulted start Liquid diet NGT clamped very minimal serosanguinous drainage from Colostomy 2. Acute blood loss anemia secondary to GI bleed with melena Hgb 5.2 on admission s/p total 6 units PRBC transfusion Hold Eliquis On Protonix IV cont Venofer IV GI following . EGD and colonoscopy showed no active bleeding 3. Diastolic chronic CHF (congestive heart failure), without exacerbation stable hold Lasix 40mg , Metoprolol and Losartan for now ECHO: normal LV function on previous admission. Monitor I/O closely 4. COPD (chronic obstructive pulmonary disease), mild exacerbation Maintained intubated post op , extubated 02/26 Dr Otto on consult Continue Segundo 5. CAD (coronary artery disease) Chronic Holding ASA and Eliquis due to GI bleed losartan and BB on hold 6. Hypertension restart Cardizem monitor closely 7. Atrial fibrillation with RVR Digoxin IV given Eliquis on hold, rpt INR as noted some coagulopathy Cardizem restarted 8. Diabetes mellitus, type II Chronic Insulin sliding scale. metformin on hold 9. Hypothyroidism Chronic levothyroxine 175mcg PO daily 10. DVT prophylaxis SCDs, no anticoag sec to GIB
--- NOTE | 2018-03-01 13:19 | CP.PCM.CON ---
History of Present Illness - History of Present Illness History of Present Illness: 87 year old female admitted to ICU for upper GI bleed and hgb found to be 5.2 on admission . Had EGD and then Taken for colonoscopy 02/[address] Calvert that showed diverticulosis, no active bleed. Post colonoscopy developed severe intractable abdominal pain secondary to colon perforation . Taken to OR and underwent exploratory laparatomy with sigmoid resection and sigmoid colostomy. Extubated on 02/26 IV zosyn on board pt awake arousable confused NAD with NGT in place and weak bowel sounds/ colostomy PMH coronary artery disease, essential hypertension, atrial fibrillation ( was on Eliquis starting 1 month ago), congestive heart failure, type 2 DM, COPD , diverticulitis, sleep apnea, and hypothyroidism Review of Systems - Review of Systems Systems not reviewed;Unavailable: Altered Mental Status All systems: reviewed and no additional remarkable complaints except - Constitutional Constitutional: As Per HPI - EENT Eyes: absent: As Per HPI, Blind Spots, Blurred Vision, Change in Vision, Decreased Night Vision, Diplopia, Discharge, Dry Eye, Exophthalmos, Floaters, Irritation, Itchy Eyes, Loss of Peripheral Vision, Pain, Photophobia, Requires Corrective Lenses, Sees Flashes, Spots in Vision, Tunnel Vision, Other Visual Disturbances, Loss of Vision, Other Ears: absent: As Per HPI, Decreased Hearing, Ear Discharge, Ear Pain, Tinnitus, Abnormal Hearing, Disequilibrium, Dizziness, Other Nose/Mouth/Throat: absent: As Per HPI, Epistaxis, Nasal Congestion, Nasal Discharge, Nasal Obstruction, Nasal Trauma, Nose Pain, Post Nasal Drip, Sinus Pain, Sinus Pressure, Bleeding Gums, Change in Voice, Dental Pain, Dry Mouth, Dysphagia, Halitosis, Hoarsness, Lip Swelling, Mouth Lesions, Mouth Pain, Odynophagia, Sore Throat, Throat Swelling, Tongue Swelling, Facial Pain, Neck Pain, Neck Mass, Other - Breasts Breasts: absent: As Per HPI, Change in Shape, Mass, Pain, Nipple Discharge, Nipple Inversion, Skin Changes, Swelling, Other - Cardiovascular Cardiovascular: As Per HPI - Respiratory Respiratory: As Per HPI, Cough - Gastrointestinal Gastrointestinal: As Per HPI - Genitourinary Genitourinary: absent: As Per HPI, Change in Urinary Stream, Difficulty Urinating, Dysuria, Flank Pain, Hematuria, Pyuria, Nocturia, Urinary Incontinence, Urinary Frequency, Urinary Hesitance, Urinary Urgency, Voiding Freq/Small Amts, Freq UTI, Hx Renal/Bladder Calculi, Hx /Renal Surgery, Bladder Distension, Other - Reproductive: Female Reproductive:Female: absent: As Per HPI, Amenorrhea, Amenorrhea/ Control, Currently Menstual, Cycle <21 Days, Cycle >35 Days, Cycle Variable, Menses 1-7 Days, Menses >/= 8 Days, Menses Variable, Cycle > 4 Weeks Between, No Menses for 6 Months, Heavy Menses, Light Menses, Normal Menses, Spotting Between Cycles , S/P Hysterectomy, Menopausal, Post Menopausal, Premenarche, Abnormal Vaginal Bleeding, Dysmenorrhea, Dyspareunia, Genital Lesions, Genital Pruritis, Pelvic Pain, Prolapse Symptoms, Sexual Dysfunction, Vaginal Discharge, Vaginal Dryness , Vaginal Odor, Vaginal Pruritis, Other - Menstruation Menstruation: absent: As Per HPI, Amenorrhea, Amenorrhea/ Control, Currently Menstual, Cycle <21 Days, Cycle >35 Days, Cycle Variable, Menses 1-7 Days, Menses >/= 8 Days, Menses Variable, Cycle > 4 Weeks Between, No Menses for 6 Months, Heavy Menses, Light Menses, Normal Menses, Spotting Between Cycles , S/P Hysterectomy, Menopausal, Post Menopausal, Premenarche, Abnormal Vaginal Bleeding, Dysmenorrhea, Other - Musculoskeletal Musculoskeletal: absent: As Per HPI, Abnormal Gait, Arthralgias, Atrophy, Back Pain, Deformity, Joint Swelling, Limited Range of Motion, Loss of Height, Muscle Cramps, Muscle Weakness, Myalgias, Neck Pain, Numbness, Radiating Pain into Limb, Stiffness, Tingling, Other - Integumentary Integumentary: absent: As Per HPI, Acne, Alopecia, Bleeding Lesions, Change in Hair, Change in Nails, Change in Pigmentation, Changing Lesions, Dry Skin, Erythema, Furuncle, Hirsutism, Lesions, New Lesions, Non-Healing Lesions, Photosensitivity, Pruritus, Rash, Skin Pain, Skin Ulcer, Sores, Striae, Swelling , Unusual Bruising, Wounds, Jaundice, Other - Neurological Neurological: absent: As Per HPI, Abnormal Gait, Abnormal Hearing, Abnormal Movements, Abnormal Speech, Behavioral Changes, Burning Sensations, Confusion, Convulsions, Disequilibrium, Dizziness, Numbness, Focal Weakness, Frequent Falls , Headaches, Lack of Coordination, Loss of Vision, Memory Loss, Paresthesias, Radicular Pain, Restless Legs, Sensory Deficit, Syncope, Tingling, Tremor, Vertigo, Weakness, Other Visual Disturbances, Other - Psychiatric Psychiatric: absent: As Per HPI, Abnormal Sleep Pattern, Anhedonia, Anxiety, Auditory Hallucinations, Behavioral Changes, Change in Appetite, Change in Libido, Confusion, Depression, Difficulty Concentrating, Hallucinations, Homicidal Ideation, Hopelessness, Irritability, Memory Loss, Mood Swings, Panic Attacks, Paranoia, Suicidal Ideation, Visual Hallucinations, Tactile Hallucinations, Other - Endocrine Endocrine: absent: As Per HPI, Change in Body Appearance, Change in Libido, Cold Intolorance, Deepening of Voice, Excessive Sweating, Fatigue, Flushing, Heat Intolorance, Increase in Ring/Shoe/Hat Size, Palpitations, Polydipsia, Polyphagia, Polyuria, Other - Hematologic/Lymphatic Hematologic: absent: As Per HPI, Easy Bleeding, Easy Bruising, Lymphadenopathy, Other Past Patient History - Infectious Disease Hx of Infectious Diseases: None - Past Medical History & Family History Past Medical History?: Yes - Past Social History Smoking Status: Former Smoker - CARDIAC Hx Cardiac Disorders: Yes Hx Congestive Heart Failure: Yes Hx Hypertension: Yes - PULMONARY Hx Chronic Obstructive Pulmonary Disease (COPD): Yes - NEUROLOGICAL Hx Neurological Disorder: No - HEENT Hx HEENT Problems: No - RENAL Hx Chronic Kidney Disease: No - ENDOCRINE/METABOLIC Hx Diabetes Mellitus Type 2: Yes Hx Hypothyroidism: Yes - HEMATOLOGICAL/ONCOLOGICAL Hx AIDS: No Hx Human Immunodeficiency Virus (HIV): No - INTEGUMENTARY Hx Dermatological Problems: No - MUSCULOSKELETAL/RHEUMATOLOGICAL Hx Arthritis: Yes Hx Falls: Yes (per pt "many years ago") - GASTROINTESTINAL Hx Diverticulitis: Yes - GENITOURINARY/GYNECOLOGICAL Hx Genitourinary Disorders: No - PSYCHIATRIC Hx Depression: Yes - SURGICAL HISTORY Hx Cholecystectomy: Yes Hx Coronary Artery Bypass Graft: No - ANESTHESIA Hx Anesthesia: Yes Hx Anesthesia Reactions: No Hx Malignant Hyperthermia: No Meds Allergies/Adverse Reactions: Allergies Allergy/AdvReac Type Severity Reaction Status Date / Time No Known Allergies Allergy Verified 01/22/18 12:12 - Medications Medications: Current Medications Acetaminophen (Tylenol 650 Mg Supp) 650 mg ND Q6 PRN PRN Reason: Fever >100.4 F Last Admin: 02/25/18 23:26 Dose: 650 mg Albuterol/Ipratropium (Duoneb 3 Mg/0.5 Mg (3 Ml) Ud) 3 ml INH RQID [facility] Last Admin: 03/01/18 11:07 Dose: 3 ml Atorvastatin Calcium (Lipitor) 40 mg PO QPM [facility] Last Admin: 02/24/18 17:29 Dose: 40 mg Diltiazem HCl (Cardizem) 30 mg PO TID [facility] Last Admin: 03/01/18 12:50 Dose: 30 mg Furosemide (Lasix) 40 mg PO DAILY [facility] Last Admin: 02/25/18 09:00 Dose: Not Given Hydromorphone HCl (Dilaudid) 1 mg IVP Q4 PRN PRN Reason: Pain, moderate (4-7) Last Admin: 02/26/18 23:53 Dose: 1 mg Iron Sucrose 100 mg/ Sodium (Chloride) 105 mls @ 105 mls/hr IVPB DAILY [facility] Last Admin: 03/01/18 08:41 Dose: 105 mls/hr Metronidazole (Flagyl 500mg/100ml Ns) 100 mls @ 100 mls/hr IVPB Q8 [facility] PRN Reason: Protocol Last Admin: 03/01/18 08:39 Dose: 100 mls/hr Lactated Ringer's (Lactated Ringer's) 1,000 mls @ 150 mls/hr IV .Q6H40M [facility] Last Admin: 03/01/18 05:25 Dose: 150 mls/hr Ceftriaxone Sodium 1 gm/ (Sodium Chloride) 100 mls @ 100 mls/hr IVPB DAILY [facility] PRN Reason: Protocol Last Admin: 03/01/18 08:40 Dose: 100 mls/hr Ketorolac Tromethamine (Toradol) 15 mg IVP Q6 PRN PRN Reason: Pain, severe (8-10) Last Admin: 02/28/18 13:26 Dose: 15 mg Levothyroxine Sodium (Synthroid) 175 mcg PO DAILY@0630 [facility] Last Admin: 03/01/18 08:41 Dose: 175 mcg Losartan Potassium (Cozaar) 100 mg PO DAILY [facility] Last Admin: 03/01/18 08:38 Dose: 100 mg Morphine Sulfate (Morphine) 5 mg IVP Q4H PRN PRN Reason: Pain, severe (8-10) Last Admin: 03/01/18 07:57 Dose: 5 mg Nitroglycerin (Nitrostat Sl Tab) 0.4 mg SL Q5MIN PRN PRN Reason: Chest pain Olopatadine HCl (Patanol 0.1% Opht Soln) 1 drop OU DAILY [facility] Last Admin: 03/01/18 08:39 Dose: 1 drop Ondansetron HCl (Zofran Inj) 4 mg IVP Q4 PRN PRN Reason: Nausea/Vomiting Last Admin: 02/20/18 03:54 Dose: 4 mg Pantoprazole Sodium (Protonix Inj) 40 mg IVP DAILY [facility] Last Admin: 03/01/18 08:40 Dose: 40 mg Potassium Chloride (K-Dur 20 Meq Er Tab) 20 meq PO QPM [facility] Last Admin: 02/24/18 17:28 Dose: 20 meq Fluticasone/Salmeterol (Advair Diskus 250/50) 1 puff IH Q12 [facility] Last Admin: 03/01/18 08:38 Dose: 1 puff Physical Exam - Constitutional Appears: Non-toxic, Confused, Cachectic, Chronically Ill - Head Exam Head Exam: ATRAUMATIC, NORMAL INSPECTION, NORMOCEPHALIC - Eye Exam Eye Exam: EOMI, PERRL. absent: Scleral icterus - ENT Exam ENT Exam: Mucous Membranes Dry, Normal External Ear Exam, Normal Oropharynx - Neck Exam Neck exam: Negative for: Lymphadenopathy, Thyromegaly - Respiratory Exam Respiratory Exam: Decreased Breath Sounds, Rhonchi - Cardiovascular Exam Cardiovascular Exam: Irregular Rhythm, REGULAR RHYTHM, +S1, +S2 - GI/Abdominal Exam GI & Abdominal Exam: Diminished Bowel Sounds, Guarding, Soft. absent: Rebound, Rigid - Rectal Exam Rectal Exam: Deferred - Exam Exam: NORMAL INSPECTION - Extremities Exam Extremities exam: Negative for: pedal edema - Back Exam Back exam: absent: CVA tenderness (L), CVA tenderness (R), paraspinal tenderness - Neurological Exam Neurological exam: Alert, CN II-XII Intact, Oriented x3, Reflexes Normal - Psychiatric Exam Psychiatric exam: Depressed - Skin Skin Exam: Dry Results - Vital Signs Recent Vital Signs: Last Vital Signs Temp 98.2 F 03/01/18 12:00 Pulse 93 H 03/01/18 12:50 Resp 12 03/01/18 12:00 BP 146/62 03/01/18 12:50 Pulse Ox 100 03/01/18 12:00 - Labs Result Diagrams: 03/01/18 05:20 03/01/18 05:20 Labs: Laboratory Results - last 24 hr 02/28/18 03/01/18 03/01/18 23:18 05:20 05:20 WBC 14.1 H RBC 2.99 L Hgb 8.8 L Hct 27.5 L MCV 92.2 MCH 29.6 MCHC 32.1 L RDW 20.8 H Plt Count 243 MPV 8.6 Neut % (Auto) 85.5 H Lymph % (Auto) 6.1 L [place] % (Auto) 7.6 Eos % (Auto) 0.6 Baso % (Auto) 0.2 Neut # (Auto) 12.1 H Lymph # (Auto) 0.9 L [place] # (Auto) 1.1 H Eos # (Auto) 0.1 Baso # (Auto) 0.0 Neutrophils % (Manual) 87 H Lymphocytes % (Manual) 6 L Monocytes % (Manual) 7 Platelet Estimate Normal Large Platelets Present Anisocytosis (manual) Slight Macrocytosis (manual) Slight Ovalocytes Moderate PT 15.4 H INR 1.4 H Sodium Potassium Chloride Carbon Dioxide Anion Gap BUN Creatinine Est GFR ( Amer) Est GFR (Non-Af Amer) POC Glucose (mg/dL) 123 H Random Glucose Calcium Digoxin 03/01/18 03/01/18 03/01/18 05:20 05:20 05:28 WBC RBC Hgb Hct MCV MCH MCHC RDW Plt Count MPV Neut % (Auto) Lymph % (Auto) [place] % (Auto) Eos % (Auto) Baso % (Auto) Neut # (Auto) Lymph # (Auto) [place] # (Auto) Eos # (Auto) Baso # (Auto) Neutrophils % (Manual) Lymphocytes % (Manual) Monocytes % (Manual) Platelet Estimate Large Platelets Anisocytosis (manual) Macrocytosis (manual) Ovalocytes PT INR Sodium 148 Potassium 3.9 Chloride 108 H Carbon Dioxide 29 Anion Gap 15 BUN 20 H Creatinine 0.6 L Est GFR ( Amer) > 60 Est GFR (Non-Af Amer) > 60 POC Glucose (mg/dL) 109 Random Glucose 101 Calcium 8.4 Digoxin 1.5 03/01/18 11:22 WBC RBC Hgb Hct MCV MCH MCHC RDW Plt Count MPV Neut % (Auto) Lymph % (Auto) [place] % (Auto) Eos % (Auto) Baso % (Auto) Neut # (Auto) Lymph # (Auto) [place] # (Auto) Eos # (Auto) Baso # (Auto) Neutrophils % (Manual) Lymphocytes % (Manual) Monocytes % (Manual) Platelet Estimate Large Platelets Anisocytosis (manual) Macrocytosis (manual) Ovalocytes PT INR Sodium Potassium Chloride Carbon Dioxide Anion Gap BUN Creatinine Est GFR ( Amer) Est GFR (Non-Af Amer) POC Glucose (mg/dL) 117 H Random Glucose Calcium Digoxin Assessment & Plan (1) Melena Status: Acute (2) Perforation of colon Status: Acute (3) Anemia Status: Chronic Priority: Low (4) CHF (congestive heart failure) Status: Acute - Assessment and Plan (Free Text) Assessment: improving slowly on IV rocephin/flagyl post op s/p perf viscus would cont rx for 7 days post op then d/c
[2018-03-02] MEDS: metroNIDAZOLE 500mg/100ml NS 100 ML IVPB SCH ×3 (00:12→18:03)
[2018-03-02] MEDS: Levothyroxine 175 MCG TAB PO SCH (05:54)
[2018-03-02 06:57] LABS: BLOOD UREA NITROGEN 14 mg/dl (7-17); CALCIUM 8.6 mg/dL (8.4-10.2); GFR AFRICAN-AMERICAN > 60; GFR NON-AFRICAN AMERICAN > 60
[2018-03-02 07:27] LABS: BASO % 0.2 % (0.0-2.0); EOS # 0.1 K/uL (0.0-0.7); EOS % 0.5 % (0.0-4.0); HEMOGLOBIN 9.5 g/dL (12.0-16.0); LYMPH % 7.7 % (20.0-40.0); MEAN CELL VOLUME 92.3 fl (81.0-99.0); MEAN CORPUSCULAR HEMOGLOBIN 29.4 pg (27.0-31.0); MEAN CORPUSCULAR HGB CONC 31.8 g/dL (33.0-37.0); MEAN PLATELET VOLUME 8.3 fl (7.2-11.7); MONO # 1.2 K/uL (0.0-0.8); MONO % 9.6 % (0.0-10.0); NEUT # 10.5 K/uL (1.8-7.0); NRBC % 0.1 % (0.0-0.0); RBC 3.25 Mil/uL (3.80-5.20); RED CELL DISTRIBUTION WIDTH 21.3 % (11.5-14.5); WHITE BLOOD COUNT 12.8 K/uL (4.8-10.8)
[2018-03-02] MEDS: Albuterol-Ipratrop 3 mg / 0.5 (3 ml) UD INH SCH ×4 (08:12→19:13)
--- NOTE | 2018-03-02 08:36 | PN ---
DATE: 03/01/2018 SUBJECTIVE: is seen in the ICU at [place], status post Bebo's procedure. The white count is still elevated, but coming down presently at 14 from 19. The abdomen is soft, somewhat tender in the lower part. The wound itself is looking better. There is a little bit of redness in the lower third, but no clear infection. The ostomy is viable, but not working. The patient tolerated clear liquids. He does respond, although it is somewhat garbled and difficult to understand. I examined the patient with the son and I believe his . Presently, the patient is improved. We will watch for now. Eventually, he will need colonoscopy prior to reversal, but this will not be considered for months. Peter Montaño MD
--- NOTE | 2018-03-02 09:04 | CP.PCM.PN ---
Subjective - Date & Time of Evaluation Date of Evaluation: 03/02/18 Time of Evaluation: 09:04 - Subjective Subjective: ALERT AND AWAKE NGT IN PLACE NO SOB Objective - Vital Signs/Intake and Output Vital Signs (last 24 hours): Temp Pulse Resp BP Pulse Ox 98.8 F 101 H 20 194/79 H 96 03/02/18 08:00 03/02/18 08:00 03/02/18 08:00 03/02/18 08:00 03/02/18 08:00 - Medications Medications: Current Medications Acetaminophen (Tylenol 650 Mg Supp) 650 mg MS Q6 PRN PRN Reason: Fever >100.4 F Last Admin: 02/25/18 23:26 Dose: 650 mg Albuterol/Ipratropium (Duoneb 3 Mg/0.5 Mg (3 Ml) Ud) 3 ml INH RQID [facility] Last Admin: 03/02/18 08:12 Dose: 3 ml Atorvastatin Calcium (Lipitor) 40 mg PO QPM [facility] Last Admin: 02/24/18 17:29 Dose: 40 mg Diltiazem HCl (Cardizem) 30 mg PO TID [facility] Last Admin: 03/01/18 16:07 Dose: 30 mg Furosemide (Lasix) 40 mg PO DAILY [facility] Last Admin: 02/25/18 09:00 Dose: Not Given Hydromorphone HCl (Dilaudid) 1 mg IVP Q4 PRN PRN Reason: Pain, moderate (4-7) Last Admin: 02/26/18 23:53 Dose: 1 mg Iron Sucrose 100 mg/ Sodium (Chloride) 105 mls @ 105 mls/hr IVPB DAILY [facility] Last Admin: 03/01/18 08:41 Dose: 105 mls/hr Metronidazole (Flagyl 500mg/100ml Ns) 100 mls @ 100 mls/hr IVPB Q8 [facility] PRN Reason: Protocol Last Admin: 03/02/18 00:12 Dose: 100 mls/hr Ceftriaxone Sodium 1 gm/ (Sodium Chloride) 100 mls @ 100 mls/hr IVPB DAILY [facility] PRN Reason: Protocol Last Admin: 03/01/18 08:40 Dose: 100 mls/hr Levothyroxine Sodium (Synthroid) 175 mcg PO DAILY@0630 [facility] Last Admin: 03/02/18 05:54 Dose: 175 mcg Losartan Potassium (Cozaar) 100 mg PO DAILY [facility] Last Admin: 03/01/18 08:38 Dose: 100 mg Morphine Sulfate (Morphine) 5 mg IVP Q4H PRN PRN Reason: Pain, severe (8-10) Last Admin: 03/01/18 07:57 Dose: 5 mg Nitroglycerin (Nitrostat Sl Tab) 0.4 mg SL Q5MIN PRN PRN Reason: Chest pain Olopatadine HCl (Patanol 0.1% Opht Soln) 1 drop OU DAILY [facility] Last Admin: 03/01/18 08:39 Dose: 1 drop Ondansetron HCl (Zofran Inj) 4 mg IVP Q4 PRN PRN Reason: Nausea/Vomiting Last Admin: 02/20/18 03:54 Dose: 4 mg Pantoprazole Sodium (Protonix Inj) 40 mg IVP DAILY [facility] Last Admin: 03/01/18 08:40 Dose: 40 mg Potassium Chloride (K-Dur 20 Meq Er Tab) 20 meq PO QPM [facility] Last Admin: 02/24/18 17:28 Dose: 20 meq Fluticasone/Salmeterol (Advair Diskus 250/50) 1 puff IH Q12 [facility] Last Admin: 03/01/18 22:04 Dose: 1 puff - Labs Labs: 03/02/18 04:25 03/02/18 04:25 PT 15.4 Seconds (9.8-13.1) H 03/01/18 05:20 INR 1.4 (0.9-1.2) H 03/01/18 05:20 APTT 35.9 Seconds (25.6-37.1) 02/26/18 04:35 - Constitutional Appears: No Acute Distress - Head Exam Head Exam: ATRAUMATIC, NORMAL INSPECTION, NORMOCEPHALIC - Eye Exam Eye Exam: EOMI, Normal appearance, PERRL Pupil Exam: NORMAL ACCOMODATION, PERRL - ENT Exam ENT Exam: Mucous Membranes Moist, Normal Exam - Neck Exam Neck Exam: Full ROM, Normal Inspection. absent: Lymphadenopathy - Respiratory Exam Respiratory Exam: Prolonged Expiratory Phase, NORMAL BREATHING PATTERN - Cardiovascular Exam Cardiovascular Exam: REGULAR RHYTHM, +S1, +S2. absent: Murmur - GI/Abdominal Exam GI & Abdominal Exam: Soft, Tenderness, Normal Bowel Sounds - Rectal Exam Rectal Exam: NORMAL INSPECTION - Extremities Exam Extremities Exam: Full ROM, Normal Capillary Refill, Normal Inspection. absent : Joint Swelling, Pedal Edema - Back Exam Back Exam: NORMAL INSPECTION - Neurological Exam Neurological Exam: Alert, Awake, CN II-XII Intact - Psychiatric Exam Psychiatric exam: Normal Affect, Normal Mood - Skin Skin Exam: Dry, Intact, Normal Color, Warm Assessment and Plan - Assessment and Plan (Free Text) Assessment: COPD-NO DISTRESS S/P COLON RESECTION Plan: CONTINUE CURRENT RX
--- NOTE | 2018-03-02 09:15 | CP.PCM.PN ---
Subjective - Date & Time of Evaluation Date of Evaluation: 03/02/18 Time of Evaluation: 09:13 - Subjective Subjective: SURGERY NOTE FOR DR. BAEZ 87F seen and examined at bedside. Patient states pain is controlled, denies nausea, vomiting, denies fevers, chills. No ostomy output yet. Objective - Vital Signs/Intake and Output Vital Signs (last 24 hours): Temp Pulse Resp BP Pulse Ox 98.8 F 101 H 20 194/79 H 96 03/02/18 08:00 03/02/18 08:00 03/02/18 08:00 03/02/18 08:00 03/02/18 08:00 - Medications Medications: Current Medications Acetaminophen (Tylenol 650 Mg Supp) 650 mg [place] Q6 PRN PRN Reason: Fever >100.4 F Last Admin: 02/25/18 23:26 Dose: 650 mg Albuterol/Ipratropium (Duoneb 3 Mg/0.5 Mg (3 Ml) Ud) 3 ml INH RQID [facility] Last Admin: 03/02/18 08:12 Dose: 3 ml Atorvastatin Calcium (Lipitor) 40 mg PO QPM [facility] Last Admin: 02/24/18 17:29 Dose: 40 mg Diltiazem HCl (Cardizem) 30 mg PO TID [facility] Last Admin: 03/01/18 16:07 Dose: 30 mg Furosemide (Lasix) 40 mg PO DAILY [facility] Last Admin: 02/25/18 09:00 Dose: Not Given Hydromorphone HCl (Dilaudid) 1 mg IVP Q4 PRN PRN Reason: Pain, moderate (4-7) Last Admin: 02/26/18 23:53 Dose: 1 mg Iron Sucrose 100 mg/ Sodium (Chloride) 105 mls @ 105 mls/hr IVPB DAILY [facility] Last Admin: 03/01/18 08:41 Dose: 105 mls/hr Metronidazole (Flagyl 500mg/100ml Ns) 100 mls @ 100 mls/hr IVPB Q8 [facility] PRN Reason: Protocol Last Admin: 03/02/18 00:12 Dose: 100 mls/hr Ceftriaxone Sodium 1 gm/ (Sodium Chloride) 100 mls @ 100 mls/hr IVPB DAILY [facility] PRN Reason: Protocol Last Admin: 03/01/18 08:40 Dose: 100 mls/hr Levothyroxine Sodium (Synthroid) 175 mcg PO DAILY@0630 [facility] Last Admin: 03/02/18 05:54 Dose: 175 mcg Losartan Potassium (Cozaar) 100 mg PO DAILY [facility] Last Admin: 03/01/18 08:38 Dose: 100 mg Morphine Sulfate (Morphine) 5 mg IVP Q4H PRN PRN Reason: Pain, severe (8-10) Last Admin: 03/01/18 07:57 Dose: 5 mg Nitroglycerin (Nitrostat Sl Tab) 0.4 mg SL Q5MIN PRN PRN Reason: Chest pain Olopatadine HCl (Patanol 0.1% Opht Soln) 1 drop OU DAILY [facility] Last Admin: 03/01/18 08:39 Dose: 1 drop Ondansetron HCl (Zofran Inj) 4 mg IVP Q4 PRN PRN Reason: Nausea/Vomiting Last Admin: 02/20/18 03:54 Dose: 4 mg Pantoprazole Sodium (Protonix Inj) 40 mg IVP DAILY [facility] Last Admin: 03/01/18 08:40 Dose: 40 mg Potassium Chloride (K-Dur 20 Meq Er Tab) 20 meq PO QPM [facility] Last Admin: 02/24/18 17:28 Dose: 20 meq Fluticasone/Salmeterol (Advair Diskus 250/50) 1 puff IH Q12 [facility] Last Admin: 03/01/18 22:04 Dose: 1 puff - Labs Labs: 03/02/18 04:25 03/02/18 04:25 PT 15.4 Seconds (9.8-13.1) H 03/01/18 05:20 INR 1.4 (0.9-1.2) H 03/01/18 05:20 APTT 35.9 Seconds (25.6-37.1) 02/26/18 04:35 - Constitutional Appears: Non-toxic, No Acute Distress - Respiratory Exam Respiratory Exam: Clear to Ausculation Bilateral, NORMAL BREATHING PATTERN - Cardiovascular Exam Cardiovascular Exam: REGULAR RHYTHM, +S1, +S2 - GI/Abdominal Exam GI & Abdominal Exam: Soft, Tenderness. absent: Distended, Firm, Guarding, Rigid , Rebound Additional comments: ostomy is pink - Neurological Exam Neurological Exam: Alert, Awake Assessment and Plan - Assessment and Plan (Free Text) Assessment: 87 F who is s/p ex lap for rectosigmoid perforation and free air with resection and colostomy POD#5 -Continue CLD -Continue IV antibiotics -Pain control -Monitor output colostomy Further recommendations as per Dr. Danyel Ellis, PGY2
[2018-03-02] MEDS: Fluticasone-Salmeterol 250-50mcg Diskus IH SCH ×2 (09:35→21:50)
[2018-03-02] MEDS: Olopatadine 0.1% Opht SOLN OU SCH (09:39)
--- NOTE | 2018-03-02 09:58 | PN ---
DATE: 02/28/2018 SUBJECTIVE: The patient is seen in the ICU. Afebrile. Vital signs are normal. Heart rate somewhere around 88 and 94. NG tube is recorded about 400 on the electronic record. Urine is adequate. White count is 19, down from 20.8 yesterday. Hemoglobin stable around 9 and 8.9. Platelets normal. BUN is 20, creatinine is 0.6, glucose 116. Bilirubin normal, AST 42, albumin 2.6. PHYSICAL EXAMINATION: NEUROLOGIC: She does open her eyes to commands, is moving around, has recently pulled out her arterial line and drain. ABDOMEN: Incision looks intact. The ostomy has withdrawn a little bit, but looks viable without function as yet. The patient seems stable at this point. The patient needs to be continued on antibiotics and we will suggest an ID consult. NG tube in a little bit longer. Limited activity in a chair would be okay. Peter Montaño MD
[2018-03-02] MEDS ORDERED: Labetalol 5 mg/ml Inj 20ML IVP STA ×2 (10:49→13:17)
[2018-03-02] MEDS ORDERED: Potassium Chloride 20 mEq 100 ML IVPB ONE (11:31)
--- NOTE | 2018-03-02 11:31 | CP.PCM.PN ---
Subjective - Date & Time of Evaluation Date of Evaluation: 03/02/18 Time of Evaluation: 11:31 - Subjective Subjective: patient resting continues to have episodes of confusion HD stble NGT in place no output from ostomy nad Objective - Vital Signs/Intake and Output Vital Signs (last 24 hours): Temp Pulse Resp BP Pulse Ox 98.8 F 101 H 20 194/79 H 96 03/02/18 08:00 03/02/18 09:37 03/02/18 08:00 03/02/18 09:37 03/02/18 08:00 - Medications Medications: Current Medications Acetaminophen (Tylenol 650 Mg Supp) 650 mg SC Q6 PRN PRN Reason: Fever >100.4 F Last Admin: 02/25/18 23:26 Dose: 650 mg Albuterol/Ipratropium (Duoneb 3 Mg/0.5 Mg (3 Ml) Ud) 3 ml INH RQID [facility] Last Admin: 03/02/18 08:12 Dose: 3 ml Atorvastatin Calcium (Lipitor) 40 mg PO QPM [facility] Last Admin: 02/24/18 17:29 Dose: 40 mg Diltiazem HCl (Cardizem) 30 mg PO TID [facility] Last Admin: 03/02/18 09:37 Dose: 30 mg Furosemide (Lasix) 40 mg PO DAILY [facility] Last Admin: 02/25/18 09:00 Dose: Not Given Hydromorphone HCl (Dilaudid) 1 mg IVP Q4 PRN PRN Reason: Pain, moderate (4-7) Last Admin: 02/26/18 23:53 Dose: 1 mg Iron Sucrose 100 mg/ Sodium (Chloride) 105 mls @ 105 mls/hr IVPB DAILY [facility] Last Admin: 03/01/18 08:41 Dose: 105 mls/hr Metronidazole (Flagyl 500mg/100ml Ns) 100 mls @ 100 mls/hr IVPB Q8 [facility] PRN Reason: Protocol Last Admin: 03/02/18 09:38 Dose: 100 mls/hr Ceftriaxone Sodium 1 gm/ (Sodium Chloride) 100 mls @ 100 mls/hr IVPB DAILY [facility] PRN Reason: Protocol Last Admin: 03/01/18 08:40 Dose: 100 mls/hr Levothyroxine Sodium (Synthroid) 175 mcg PO DAILY@0630 [facility] Last Admin: 03/02/18 05:54 Dose: 175 mcg Losartan Potassium (Cozaar) 100 mg PO DAILY [facility] Last Admin: 03/02/18 09:37 Dose: 100 mg Morphine Sulfate (Morphine) 5 mg IVP Q4H PRN PRN Reason: Pain, severe (8-10) Last Admin: 03/01/18 07:57 Dose: 5 mg Nitroglycerin (Nitrostat Sl Tab) 0.4 mg SL Q5MIN PRN PRN Reason: Chest pain Olopatadine HCl (Patanol 0.1% Opht Soln) 1 drop OU DAILY [facility] Last Admin: 03/02/18 09:39 Dose: 1 drop Ondansetron HCl (Zofran Inj) 4 mg IVP Q4 PRN PRN Reason: Nausea/Vomiting Last Admin: 02/20/18 03:54 Dose: 4 mg Pantoprazole Sodium (Protonix Inj) 40 mg IVP DAILY [facility] Last Admin: 03/02/18 09:39 Dose: 40 mg Potassium Chloride (K-Dur 20 Meq Er Tab) 20 meq PO QPM [facility] Last Admin: 02/24/18 17:28 Dose: 20 meq Fluticasone/Salmeterol (Advair Diskus 250/50) 1 puff IH Q12 [facility] Last Admin: 03/02/18 09:35 Dose: 1 puff - Labs Labs: 03/02/18 04:25 03/02/18 04:25 PT 15.4 Seconds (9.8-13.1) H 03/01/18 05:20 INR 1.4 (0.9-1.2) H 03/01/18 05:20 APTT 35.9 Seconds (25.6-37.1) 02/26/18 04:35 - Additional Findings Additional findings: General: awake, alert, confusion HEENT: NCAT, PERRL, EOMI +NGT HEART: RRR, S1, S2 no MRG LUNG: CTAB, no WRR ABD: soft, NT, ND, no mass, no HSM, +ostomy EXT: warm, well perfused NEURO: awake, alert SKIN: warm, dry PSYCH: normal mood, normal affect Assessment and Plan - Assessment and Plan (Free Text) Plan: 87 year old female with a past medical history significant for coronary artery disease, essential hypertension, atrial fibrillation (was on Eliquis starting 1 month ago), congestive heart failure, type 2 DM, COPD, diverticulitis, sleep apnea, and hypothyroidism, admitted to ICU for upper GI bleed. Patient's hgb found to be 5.2 on admission . She was transfused 2 unit PRBC , GI consulted and underwent EGD that showed no active bleed. Eliquis on hold since admission. No more bleeding episodes noted since admission . She was started empirically on Zosyn after spiking fever 02/23 and being somewhat sleepy. Urine cx reported as < [id number] colonies of mixed tarah. Taken for colonoscopy 02/[address] Calvert that showed diverticulosis, no active bleed. Post colonoscopy developed severe intractable abdominal pain secondary to colon perforation . Taken to OR and underwent Emergency exploratory laparatomy with sigmoid resection and sigmoid colostomy. Transfused 2 PRBC and 2 FFP in OR . Maintained intubated post op and monitored in ICU. Extubated on 02/26 Afib with RVR on monitor post op . Digoxin IV started 03/02 hypertensive urgency, labetolol given, will monitor closely throughout day 1. Colon perforation post colonoscopy s/p exploratory laparatomy with sigmoid resection and colostomy 02/25 Surgery following pt Continue IVF hydration. Monitor I/O closely since patient has CHF On Zosyn and Flagyl IV empirically - WBC ct still elevated , Abx changed to Ceftriaxone by Surgery On Morphine PRN for pain control and sedation ID consulted start Liquid diet NGT clamped, no output from ostomy yet very minimal serosanguinous drainage from Colostomy 2. Acute blood loss anemia secondary to GI bleed with melena Hgb 5.2 on admission s/p total 6 units PRBC transfusion Hold Eliquis On Protonix IV cont Venofer IV GI following . EGD and colonoscopy showed no active bleeding 3. Diastolic chronic CHF (congestive heart failure), without exacerbation stable hold Lasix 40mg , Metoprolol and Losartan for now ECHO: normal LV function on previous admission. Monitor I/O closely 4. COPD (chronic obstructive pulmonary disease), mild exacerbation Maintained intubated post op , extubated 02/26 Dr Otto on consult Continue Duonebs 5. CAD (coronary artery disease) Chronic Holding ASA and Eliquis due to GI bleed losartan and BB on hold 6. Hypertension restart Cardizem monitor closely 7. Atrial fibrillation with RVR Digoxin IV given Eliquis on hold, rpt INR as noted some coagulopathy Cardizem restarted 8. Diabetes mellitus, type II Chronic Insulin sliding scale. metformin on hold 9. Hypothyroidism Chronic levothyroxine 175mcg PO daily 10. DVT prophylaxis SCDs, no anticoag sec to GIB
--- NOTE | 2018-03-02 11:39 | RAD ---
PROCEDURE: CHEST RADIOGRAPH, 1 VIEW HISTORY: COPD COMPARISON: 02/26/2018. FINDINGS: LUNGS: Interval improvement with respect to aeration of the lungs. PLEURA: Decrease in pleural effusions. CARDIOVASCULAR: Cardiomegaly. No evidence of acute, significant cardiovascular disease. OSSEOUS STRUCTURES: No significant abnormalities. VISUALIZED UPPER ABDOMEN: Normal. OTHER FINDINGS: Satisfactory position of right IJ catheter and nasogastric tube. Removal of support apparatus since the prior study: Endotracheal tube IMPRESSION: Improving infiltrates identified previously.
--- NOTE | 2018-03-02 13:14 | CP.PCM.PN ---
Subjective - Date & Time of Evaluation Date of Evaluation: 03/02/18 Time of Evaluation: 13:10 - Subjective Subjective: Infectious Disease - Dr. Garcia 87F seen and evaluated at bedside. Patient sleeping at time of visit. NAD. Arousable but only to express pain. NGT in place. No ostomy output. Objective - Vital Signs/Intake and Output Vital Signs (last 24 hours): Temp Pulse Resp BP Pulse Ox 99.0 F 106 H 20 197/92 H 96 03/02/18 11:53 03/02/18 11:53 03/02/18 11:53 03/02/18 11:53 03/02/18 11:53 - Medications Medications: Current Medications Acetaminophen (Tylenol 650 Mg Supp) 650 mg UT Q6 PRN PRN Reason: Fever >100.4 F Last Admin: 02/25/18 23:26 Dose: 650 mg Albuterol/Ipratropium (Duoneb 3 Mg/0.5 Mg (3 Ml) Ud) 3 ml INH RQID [facility] Last Admin: 03/02/18 11:31 Dose: 3 ml Atorvastatin Calcium (Lipitor) 40 mg PO QPM [facility] Last Admin: 02/24/18 17:29 Dose: 40 mg Diltiazem HCl (Cardizem) 30 mg PO TID [facility] Last Admin: 03/02/18 09:37 Dose: 30 mg Furosemide (Lasix) 40 mg PO DAILY [facility] Last Admin: 02/25/18 09:00 Dose: Not Given Hydromorphone HCl (Dilaudid) 1 mg IVP Q4 PRN PRN Reason: Pain, moderate (4-7) Last Admin: 02/26/18 23:53 Dose: 1 mg Iron Sucrose 100 mg/ Sodium (Chloride) 105 mls @ 105 mls/hr IVPB DAILY [facility] Last Admin: 03/01/18 08:41 Dose: 105 mls/hr Metronidazole (Flagyl 500mg/100ml Ns) 100 mls @ 100 mls/hr IVPB Q8 [facility] PRN Reason: Protocol Last Admin: 03/02/18 09:38 Dose: 100 mls/hr Ceftriaxone Sodium 1 gm/ (Sodium Chloride) 100 mls @ 100 mls/hr IVPB DAILY [facility] PRN Reason: Protocol Last Admin: 03/01/18 08:40 Dose: 100 mls/hr Potassium Chloride (Potassium Chloride 20 Meq/100 Ml) 100 mls @ 50 mls/hr IVPB ONCE ONE Stop: 03/02/18 13:30 Levothyroxine Sodium (Synthroid) 175 mcg PO DAILY@0630 [facility] Last Admin: 03/02/18 05:54 Dose: 175 mcg Losartan Potassium (Cozaar) 100 mg PO DAILY [facility] Last Admin: 03/02/18 09:37 Dose: 100 mg Morphine Sulfate (Morphine) 5 mg IVP Q4H PRN PRN Reason: Pain, severe (8-10) Last Admin: 03/01/18 07:57 Dose: 5 mg Nitroglycerin (Nitrostat Sl Tab) 0.4 mg SL Q5MIN PRN PRN Reason: Chest pain Olopatadine HCl (Patanol 0.1% Opht Soln) 1 drop OU DAILY [facility] Last Admin: 03/02/18 09:39 Dose: 1 drop Ondansetron HCl (Zofran Inj) 4 mg IVP Q4 PRN PRN Reason: Nausea/Vomiting Last Admin: 02/20/18 03:54 Dose: 4 mg Pantoprazole Sodium (Protonix Inj) 40 mg IVP DAILY [facility] Last Admin: 03/02/18 09:39 Dose: 40 mg Potassium Chloride (K-Dur 20 Meq Er Tab) 20 meq PO QPM [facility] Last Admin: 02/24/18 17:28 Dose: 20 meq Fluticasone/Salmeterol (Advair Diskus 250/50) 1 puff IH Q12 [facility] Last Admin: 03/02/18 09:35 Dose: 1 puff - Labs Labs: 03/02/18 04:25 03/02/18 04:25 PT 15.4 Seconds (9.8-13.1) H 03/01/18 05:20 INR 1.4 (0.9-1.2) H 03/01/18 05:20 APTT 35.9 Seconds (25.6-37.1) 02/26/18 04:35 - Constitutional Appears: Well, No Acute Distress - Head Exam Head Exam: ATRAUMATIC - ENT Exam Additional comments: +NGT - Neck Exam Neck Exam: Normal Inspection. absent: Tenderness - Respiratory Exam Respiratory Exam: Clear to Ausculation Bilateral. absent: Wheezes, Respiratory Distress - Cardiovascular Exam Cardiovascular Exam: REGULAR RHYTHM, +S1, +S2 - GI/Abdominal Exam GI & Abdominal Exam: Soft, Tenderness Additional comments: +ostomy - Extremities Exam Extremities Exam: Normal Inspection. absent: Tenderness - Skin Skin Exam: Normal Color, Warm Additional comments: Linear abdominal incision with alaina in place Assessment and Plan - Assessment and Plan (Free Text) Assessment: Assessment & Plan (1) Melena Status: Acute (2) Perforation of colon Status: Acute (3) Anemia Status: Chronic Priority: Low (4) CHF (congestive heart failure) Status: Acute Assessment: Continue current tx - improving on IV abx Rocephin 1g IV (day 2), Flagyl 500mg IV (day 5) - will dc after 7 days
[2018-03-03] MEDS: metroNIDAZOLE 500mg/100ml NS 100 ML IVPB SCH ×3 (00:40→18:00)
[2018-03-03 05:39] LABS: HEMOGLOBIN 9.4 g/dL (12.0-16.0); MEAN CELL VOLUME 91.5 fl (81.0-99.0); MEAN CORPUSCULAR HEMOGLOBIN 28.8 pg (27.0-31.0); MEAN CORPUSCULAR HGB CONC 31.5 g/dL (33.0-37.0); RBC 3.27 Mil/uL (3.80-5.20); RED CELL DISTRIBUTION WIDTH 21.6 % (11.5-14.5); WHITE BLOOD COUNT 12.5 K/uL (4.8-10.8)
[2018-03-03 06:32] LABS: BLOOD UREA NITROGEN 11 mg/dl (7-17); CALCIUM 8.4 mg/dL (8.4-10.2); GFR AFRICAN-AMERICAN > 60; GFR NON-AFRICAN AMERICAN > 60
[2018-03-03] MEDS: Levothyroxine 175 MCG TAB PO SCH (07:00)
--- NOTE | 2018-03-03 07:26 | CP.PCM.PN ---
Subjective - Date & Time of Evaluation Date of Evaluation: 03/03/18 Time of Evaluation: 07:00 - Subjective Subjective: General Surgery Note- Dr. Montaño/Dr. Hunt 87 y.o female s/p ex lap for rectosigmoid perforation and free air with resection and colostomy POD#6. Patient is seen resting comfortably at bedside. Patient alert and awake today. Patient denies acute overnight events. Denies nausea, fever. Reports drinking water. Denies pain during visitation Objective - Vital Signs/Intake and Output Vital Signs (last 24 hours): Temp Pulse Resp BP Pulse Ox 98.1 F 79 18 157/68 H 97 03/03/18 05:00 03/03/18 05:00 03/03/18 05:00 03/03/18 05:00 03/03/18 05:00 - Medications Medications: Current Medications Acetaminophen (Tylenol 650 Mg Supp) 650 mg [place] Q6 PRN PRN Reason: Fever >100.4 F Last Admin: 02/25/18 23:26 Dose: 650 mg Albuterol/Ipratropium (Duoneb 3 Mg/0.5 Mg (3 Ml) Ud) 3 ml INH RQID [facility] Last Admin: 03/02/18 19:13 Dose: 3 ml Atorvastatin Calcium (Lipitor) 40 mg PO QPM [facility] Last Admin: 03/02/18 18:07 Dose: 40 mg Diltiazem HCl (Cardizem) 30 mg PO TID [facility] Last Admin: 03/02/18 18:06 Dose: 30 mg Furosemide (Lasix) 40 mg PO DAILY [facility] Last Admin: 02/25/18 09:00 Dose: Not Given Hydralazine HCl (Apresoline) 10 mg IV Q6 PRN PRN Reason: SBP >160 Last Admin: 03/03/18 00:37 Dose: 10 mg Hydromorphone HCl (Dilaudid) 1 mg IVP Q4 PRN PRN Reason: Pain, moderate (4-7) Last Admin: 02/26/18 23:53 Dose: 1 mg Iron Sucrose 100 mg/ Sodium (Chloride) 105 mls @ 105 mls/hr IVPB DAILY [facility] Last Admin: 03/02/18 14:29 Dose: 105 mls/hr Metronidazole (Flagyl 500mg/100ml Ns) 100 mls @ 100 mls/hr IVPB Q8 JOSE A PRN Reason: Protocol Last Admin: 03/03/18 00:40 Dose: 100 mls/hr Ceftriaxone Sodium 1 gm/ (Sodium Chloride) 100 mls @ 100 mls/hr IVPB DAILY JOSE A PRN Reason: Protocol Last Admin: 03/02/18 14:29 Dose: 100 mls/hr Levothyroxine Sodium (Synthroid) 175 mcg PO DAILY@0630 [facility] Last Admin: 03/03/18 07:00 Dose: 175 mcg Losartan Potassium (Cozaar) 100 mg PO DAILY JOSE A Last Admin: 03/02/18 09:37 Dose: 100 mg Morphine Sulfate (Morphine) 5 mg IVP Q4H PRN PRN Reason: Pain, severe (8-10) Last Admin: 03/01/18 07:57 Dose: 5 mg Nitroglycerin (Nitrostat Sl Tab) 0.4 mg SL Q5MIN PRN PRN Reason: Chest pain Olopatadine HCl (Patanol 0.1% Opht Soln) 1 drop OU DAILY [facility] Last Admin: 03/02/18 09:39 Dose: 1 drop Ondansetron HCl (Zofran Inj) 4 mg IVP Q4 PRN PRN Reason: Nausea/Vomiting Last Admin: 02/20/18 03:54 Dose: 4 mg Pantoprazole Sodium (Protonix Inj) 40 mg IVP DAILY [facility] Last Admin: 03/02/18 09:39 Dose: 40 mg Potassium Chloride (K-Dur 20 Meq Er Tab) 20 meq PO QPM [facility] Last Admin: 02/24/18 17:28 Dose: 20 meq Fluticasone/Salmeterol (Advair Diskus 250/50) 1 puff IH Q12 [facility] Last Admin: 03/02/18 21:50 Dose: 1 puff - Labs Labs: 03/03/18 04:20 03/03/18 04:20 PT 15.4 Seconds (9.8-13.1) H 03/01/18 05:20 INR 1.4 (0.9-1.2) H 03/01/18 05:20 APTT 35.9 Seconds (25.6-37.1) 02/26/18 04:35 - Constitutional Appears: Well, Non-toxic, No Acute Distress - Head Exam Head Exam: NORMOCEPHALIC - ENT Exam ENT Exam: Mucous Membranes Moist - Respiratory Exam Respiratory Exam: Clear to Ausculation Bilateral, NORMAL BREATHING PATTERN - Cardiovascular Exam Cardiovascular Exam: REGULAR RHYTHM, +S1, +S2 - GI/Abdominal Exam GI & Abdominal Exam: Soft, Tenderness. absent: Distended, Firm, Guarding, Rigid Additional comments: ostomy is pink output noted in ostomy bag Assessment and Plan - Assessment and Plan (Free Text) Assessment: 87 F who is s/p ex lap for rectosigmoid perforation and free air with resection and colostomy POD#6 Plan: -Continue CLD -Continue IV antibiotics -Pain control -continue to monitor output colostomy -Further recommendations as per Dr. Montaño/Dr. Gilbert Edmond DPM PGY-1
[2018-03-03] MEDS: Albuterol-Ipratrop 3 mg / 0.5 (3 ml) UD INH SCH ×4 (07:37→19:09)
[2018-03-03] MEDS ORDERED: Potassium Chloride 20 mEq/15 ml LIQ UD PO ONE (07:43)
[2018-03-03] MEDS: Fluticasone-Salmeterol 250-50mcg Diskus IH SCH ×2 (08:58→20:10)
--- NOTE | 2018-03-03 09:03 | CP.PCM.PN ---
Subjective - Date & Time of Evaluation Date of Evaluation: 03/03/18 Time of Evaluation: 09:03 - Subjective Subjective: no chest pains/sob comfortable today Objective - Vital Signs/Intake and Output Vital Signs (last 24 hours): Temp Pulse Resp BP Pulse Ox 98.8 F 81 20 162/70 H 100 03/03/18 07:57 03/03/18 07:57 03/03/18 07:57 03/03/18 07:57 03/03/18 07:57 - Medications Medications: Current Medications Acetaminophen (Tylenol 650 Mg Supp) 650 mg [place] Q6 PRN PRN Reason: Fever >100.4 F Last Admin: 02/25/18 23:26 Dose: 650 mg Albuterol/Ipratropium (Duoneb 3 Mg/0.5 Mg (3 Ml) Ud) 3 ml INH RQID [facility] Last Admin: 03/03/18 07:37 Dose: 3 ml Atorvastatin Calcium (Lipitor) 40 mg PO QPM [facility] Last Admin: 03/02/18 18:07 Dose: 40 mg Diltiazem HCl (Cardizem) 30 mg PO TID [facility] Last Admin: 03/02/18 18:06 Dose: 30 mg Furosemide (Lasix) 40 mg PO DAILY [facility] Last Admin: 02/25/18 09:00 Dose: Not Given Hydralazine HCl (Apresoline) 10 mg IV Q6 PRN PRN Reason: SBP >160 Last Admin: 03/03/18 00:37 Dose: 10 mg Hydromorphone HCl (Dilaudid) 1 mg IVP Q4 PRN PRN Reason: Pain, moderate (4-7) Last Admin: 02/26/18 23:53 Dose: 1 mg Iron Sucrose 100 mg/ Sodium (Chloride) 105 mls @ 105 mls/hr IVPB DAILY [facility] Last Admin: 03/02/18 14:29 Dose: 105 mls/hr Metronidazole (Flagyl 500mg/100ml Ns) 100 mls @ 100 mls/hr IVPB Q8 JOSE A PRN Reason: Protocol Last Admin: 03/03/18 00:40 Dose: 100 mls/hr Ceftriaxone Sodium 1 gm/ (Sodium Chloride) 100 mls @ 100 mls/hr IVPB DAILY [facility] PRN Reason: Protocol Last Admin: 03/02/18 14:29 Dose: 100 mls/hr Levothyroxine Sodium (Synthroid) 175 mcg PO DAILY@0630 [facility] Last Admin: 03/03/18 07:00 Dose: 175 mcg Losartan Potassium (Cozaar) 100 mg PO DAILY [facility] Last Admin: 03/02/18 09:37 Dose: 100 mg Morphine Sulfate (Morphine) 5 mg IVP Q4H PRN PRN Reason: Pain, severe (8-10) Last Admin: 03/01/18 07:57 Dose: 5 mg Nitroglycerin (Nitrostat Sl Tab) 0.4 mg SL Q5MIN PRN PRN Reason: Chest pain Olopatadine HCl (Patanol 0.1% Opht Soln) 1 drop OU DAILY [facility] Last Admin: 03/02/18 09:39 Dose: 1 drop Ondansetron HCl (Zofran Inj) 4 mg IVP Q4 PRN PRN Reason: Nausea/Vomiting Last Admin: 02/20/18 03:54 Dose: 4 mg Pantoprazole Sodium (Protonix Inj) 40 mg IVP DAILY [facility] Last Admin: 03/02/18 09:39 Dose: 40 mg Potassium Chloride (K-Dur 20 Meq Er Tab) 20 meq PO QPM [facility] Last Admin: 02/24/18 17:28 Dose: 20 meq Potassium Chloride (Potassium Chloride Oral Soln) 40 meq PO ONCE ONE Stop: 03/03/18 07:44 Fluticasone/Salmeterol (Advair Diskus 250/50) 1 puff IH Q12 [facility] Last Admin: 03/02/18 21:50 Dose: 1 puff - Labs Labs: 03/03/18 04:20 03/03/18 04:20 PT 15.4 Seconds (9.8-13.1) H 03/01/18 05:20 INR 1.4 (0.9-1.2) H 03/01/18 05:20 APTT 35.9 Seconds (25.6-37.1) 02/26/18 04:35 - Constitutional Appears: No Acute Distress - Head Exam Head Exam: ATRAUMATIC, NORMAL INSPECTION, NORMOCEPHALIC - Eye Exam Eye Exam: EOMI, Normal appearance, PERRL Pupil Exam: NORMAL ACCOMODATION, PERRL - ENT Exam ENT Exam: Mucous Membranes Moist, Normal Exam - Neck Exam Neck Exam: Full ROM, Normal Inspection. absent: Lymphadenopathy - Respiratory Exam Respiratory Exam: Prolonged Expiratory Phase, NORMAL BREATHING PATTERN - Cardiovascular Exam Cardiovascular Exam: REGULAR RHYTHM, +S1, +S2. absent: Murmur - GI/Abdominal Exam GI & Abdominal Exam: Soft, Normal Bowel Sounds. absent: Tenderness Additional comments: s/p colon resection - Rectal Exam Rectal Exam: NORMAL INSPECTION - Extremities Exam Extremities Exam: Full ROM, Normal Capillary Refill, Normal Inspection. absent : Joint Swelling, Pedal Edema - Back Exam Back Exam: NORMAL INSPECTION - Neurological Exam Neurological Exam: Alert, Awake, CN II-XII Intact, Oriented x3 - Psychiatric Exam Psychiatric exam: Normal Affect, Normal Mood - Skin Skin Exam: Dry, Intact, Normal Color, Warm Assessment and Plan - Assessment and Plan (Free Text) Assessment: copd--stable pulmonary infilterate improved s/p colon resection and colostomy
[2018-03-03] MEDS: Olopatadine 0.1% Opht SOLN OU SCH (09:04)
--- NOTE | 2018-03-03 10:46 | CP.PCM.PN ---
Subjective - Date & Time of Evaluation Date of Evaluation: 03/03/18 Time of Evaluation: 10:46 - Subjective Subjective: pt comfortable still becomes confused NGT removed oozing from op site, likely hematoma? hd stable nad Objective - Vital Signs/Intake and Output Vital Signs (last 24 hours): Temp Pulse Resp BP Pulse Ox 98.8 F 81 20 131/71 100 03/03/18 07:57 03/03/18 07:57 03/03/18 07:57 03/03/18 08:59 03/03/18 07:57 Intake and Output: General: awake, alert HEENT: NCAT, PERRL, EOMI HEART: RRR, S1, S2 no MRG LUNG: CTAB, no WRR ABD: soft, NT, ND, no mass, no HSM EXT: warm, well perfused NEURO: awake, alert SKIN: warm, dry PSYCH: normal mood, normal affect - Medications Medications: Current Medications Acetaminophen (Tylenol 650 Mg Supp) 650 mg IN Q6 PRN PRN Reason: Fever >100.4 F Last Admin: 02/25/18 23:26 Dose: 650 mg Albuterol/Ipratropium (Duoneb 3 Mg/0.5 Mg (3 Ml) Ud) 3 ml INH RQID [facility] Last Admin: 03/03/18 07:37 Dose: 3 ml Atorvastatin Calcium (Lipitor) 40 mg PO QPM [facility] Last Admin: 03/02/18 18:07 Dose: 40 mg Diltiazem HCl (Cardizem) 30 mg PO TID [facility] Last Admin: 03/03/18 08:59 Dose: 30 mg Furosemide (Lasix) 40 mg PO DAILY [facility] Last Admin: 02/25/18 09:00 Dose: Not Given Hydralazine HCl (Apresoline) 10 mg IV Q6 PRN PRN Reason: SBP >160 Last Admin: 03/03/18 00:37 Dose: 10 mg Hydromorphone HCl (Dilaudid) 1 mg IVP Q4 PRN PRN Reason: Pain, moderate (4-7) Last Admin: 02/26/18 23:53 Dose: 1 mg Iron Sucrose 100 mg/ Sodium (Chloride) 105 mls @ 105 mls/hr IVPB DAILY [facility] Last Admin: 03/02/18 14:29 Dose: 105 mls/hr Metronidazole (Flagyl 500mg/100ml Ns) 100 mls @ 100 mls/hr IVPB Q8 JOSE A PRN Reason: Protocol Last Admin: 03/03/18 09:00 Dose: 100 mls/hr Ceftriaxone Sodium 1 gm/ (Sodium Chloride) 100 mls @ 100 mls/hr IVPB DAILY JOSE A PRN Reason: Protocol Last Admin: 03/03/18 09:01 Dose: 100 mls/hr Levothyroxine Sodium (Synthroid) 175 mcg PO DAILY@0630 [facility] Last Admin: 03/03/18 07:00 Dose: 175 mcg Losartan Potassium (Cozaar) 100 mg PO DAILY [facility] Last Admin: 03/03/18 08:59 Dose: 100 mg Morphine Sulfate (Morphine) 5 mg IVP Q4H PRN PRN Reason: Pain, severe (8-10) Last Admin: 03/01/18 07:57 Dose: 5 mg Nitroglycerin (Nitrostat Sl Tab) 0.4 mg SL Q5MIN PRN PRN Reason: Chest pain Olopatadine HCl (Patanol 0.1% Opht Soln) 1 drop OU DAILY [facility] Last Admin: 03/03/18 09:04 Dose: 1 drop Ondansetron HCl (Zofran Inj) 4 mg IVP Q4 PRN PRN Reason: Nausea/Vomiting Last Admin: 02/20/18 03:54 Dose: 4 mg Pantoprazole Sodium (Protonix Inj) 40 mg IVP DAILY [facility] Last Admin: 03/03/18 09:04 Dose: 40 mg Potassium Chloride (K-Dur 20 Meq Er Tab) 20 meq PO QPM [facility] Last Admin: 02/24/18 17:28 Dose: 20 meq Fluticasone/Salmeterol (Advair Diskus 250/50) 1 puff IH Q12 [facility] Last Admin: 03/03/18 08:58 Dose: 1 puff - Labs Labs: 03/03/18 04:20 03/03/18 04:20 PT 15.4 Seconds (9.8-13.1) H 03/01/18 05:20 INR 1.4 (0.9-1.2) H 03/01/18 05:20 APTT 35.9 Seconds (25.6-37.1) 02/26/18 04:35 Assessment and Plan - Assessment and Plan (Free Text) Plan: 87 year old female with a past medical history significant for coronary artery disease, essential hypertension, atrial fibrillation (was on Eliquis starting 1 month ago), congestive heart failure, type 2 DM, COPD, diverticulitis, sleep apnea, and hypothyroidism, admitted to ICU for upper GI bleed. Patient's hgb found to be 5.2 on admission . She was transfused 2 unit PRBC , GI consulted and underwent EGD that showed no active bleed. Eliquis on hold since admission. No more bleeding episodes noted since admission . She was started empirically on Zosyn after spiking fever 02/23 and being somewhat sleepy. Urine cx reported as < [id number] colonies of mixed tarah. Taken for colonoscopy 02/[address] Calvert that showed diverticulosis, no active bleed. Post colonoscopy developed severe intractable abdominal pain secondary to colon perforation . Taken to OR and underwent Emergency exploratory laparatomy with sigmoid resection and sigmoid colostomy. Transfused 2 PRBC and 2 FFP in OR . Maintained intubated post op and monitored in ICU. Extubated on 02/26 Afib with RVR on monitor post op . Digoxin IV started 03/02 hypertensive urgency, labetolol given, will monitor closely throughout day 03/03 BP better controlled. Hydralazine PRN, pt was refusing meds yesterdya, better today. Oozing from op site, poss hematoma, will monitor per surgery. 1. Colon perforation post colonoscopy s/p exploratory laparatomy with sigmoid resection and colostomy 02/25 Surgery following pt Continue IVF hydration. Monitor I/O closely since patient has CHF On Zosyn and Flagyl IV empirically - WBC ct still elevated , Abx changed to Ceftriaxone by Surgery On Morphine PRN for pain control and sedation ID consulted start Liquid diet NGT d/c very minimal serosanguinous drainage from Colostomy 2. Acute blood loss anemia secondary to GI bleed with melena Hgb 5.2 on admission s/p total 6 units PRBC transfusion Hold Eliquis On Protonix IV cont Venofer IV GI following . EGD and colonoscopy showed no active bleeding 3. Diastolic chronic CHF (congestive heart failure), without exacerbation stable hold Lasix 40mg , Metoprolol and Losartan for now ECHO: normal LV function on previous admission. Monitor I/O closely 4. COPD (chronic obstructive pulmonary disease), mild exacerbation Maintained intubated post op , extubated 02/26 Dr Otto on consult Continue Segundo 5. CAD (coronary artery disease) Chronic Holding ASA and Eliquis due to GI bleed losartan and BB on hold 6. Hypertension restart Cardizem monitor closely 7. Atrial fibrillation with RVR Digoxin IV given Eliquis on hold, rpt INR as noted some coagulopathy Cardizem restarted 8. Diabetes mellitus, type II Chronic Insulin sliding scale. metformin on hold 9. Hypothyroidism Chronic levothyroxine 175mcg PO daily 10. DVT prophylaxis SCDs, no anticoag sec to GIB
--- NOTE | 2018-03-03 12:17 | CP.PCM.PN ---
Subjective - Date & Time of Evaluation Date of Evaluation: 03/03/18 Time of Evaluation: 08:00 - Subjective Subjective: afeb nad Objective - Vital Signs/Intake and Output Vital Signs (last 24 hours): Temp Pulse Resp BP Pulse Ox 98.1 F 76 18 151/73 H 98 03/03/18 12:00 03/03/18 12:00 03/03/18 12:00 03/03/18 12:00 03/03/18 12:00 - Medications Medications: Current Medications Acetaminophen (Tylenol 650 Mg Supp) 650 mg [place] Q6 PRN PRN Reason: Fever >100.4 F Last Admin: 02/25/18 23:26 Dose: 650 mg Albuterol/Ipratropium (Duoneb 3 Mg/0.5 Mg (3 Ml) Ud) 3 ml INH RQID [facility] Last Admin: 03/03/18 12:14 Dose: 3 ml Atorvastatin Calcium (Lipitor) 40 mg PO QPM [facility] Last Admin: 03/02/18 18:07 Dose: 40 mg Diltiazem HCl (Cardizem) 30 mg PO TID [facility] Last Admin: 03/03/18 08:59 Dose: 30 mg Furosemide (Lasix) 40 mg PO DAILY [facility] Last Admin: 02/25/18 09:00 Dose: Not Given Hydralazine HCl (Apresoline) 10 mg IV Q6 PRN PRN Reason: SBP >160 Last Admin: 03/03/18 00:37 Dose: 10 mg Hydromorphone HCl (Dilaudid) 1 mg IVP Q4 PRN PRN Reason: Pain, moderate (4-7) Last Admin: 02/26/18 23:53 Dose: 1 mg Iron Sucrose 100 mg/ Sodium (Chloride) 105 mls @ 105 mls/hr IVPB DAILY [facility] Last Admin: 03/02/18 14:29 Dose: 105 mls/hr Metronidazole (Flagyl 500mg/100ml Ns) 100 mls @ 100 mls/hr IVPB Q8 JOSE A PRN Reason: Protocol Last Admin: 03/03/18 09:00 Dose: 100 mls/hr Ceftriaxone Sodium 1 gm/ (Sodium Chloride) 100 mls @ 100 mls/hr IVPB DAILY [facility] PRN Reason: Protocol Last Admin: 03/03/18 09:01 Dose: 100 mls/hr Levothyroxine Sodium (Synthroid) 175 mcg PO DAILY@0630 [facility] Last Admin: 03/03/18 07:00 Dose: 175 mcg Losartan Potassium (Cozaar) 100 mg PO DAILY [facility] Last Admin: 03/03/18 08:59 Dose: 100 mg Morphine Sulfate (Morphine) 5 mg IVP Q4H PRN PRN Reason: Pain, severe (8-10) Last Admin: 03/01/18 07:57 Dose: 5 mg Nitroglycerin (Nitrostat Sl Tab) 0.4 mg SL Q5MIN PRN PRN Reason: Chest pain Olopatadine HCl (Patanol 0.1% Opht Soln) 1 drop OU DAILY [facility] Last Admin: 03/03/18 09:04 Dose: 1 drop Ondansetron HCl (Zofran Inj) 4 mg IVP Q4 PRN PRN Reason: Nausea/Vomiting Last Admin: 02/20/18 03:54 Dose: 4 mg Pantoprazole Sodium (Protonix Inj) 40 mg IVP DAILY [facility] Last Admin: 03/03/18 09:04 Dose: 40 mg Potassium Chloride (K-Dur 20 Meq Er Tab) 20 meq PO QPM [facility] Last Admin: 02/24/18 17:28 Dose: 20 meq Fluticasone/Salmeterol (Advair Diskus 250/50) 1 puff IH Q12 [facility] Last Admin: 03/03/18 08:58 Dose: 1 puff - Labs Labs: 03/03/18 04:20 03/03/18 04:20 PT 15.4 Seconds (9.8-13.1) H 03/01/18 05:20 INR 1.4 (0.9-1.2) H 03/01/18 05:20 APTT 35.9 Seconds (25.6-37.1) 02/26/18 04:35 - Constitutional Appears: Non-toxic, Chronically Ill - Head Exam Head Exam: NORMOCEPHALIC - Eye Exam Eye Exam: PERRL - ENT Exam ENT Exam: Mucous Membranes Dry - Neck Exam Neck Exam: absent: Lymphadenopathy - Respiratory Exam Respiratory Exam: Decreased Breath Sounds - Cardiovascular Exam Cardiovascular Exam: REGULAR RHYTHM - GI/Abdominal Exam GI & Abdominal Exam: Distended, Soft - Rectal Exam Rectal Exam: Deferred - Exam Exam: NORMAL INSPECTION Assessment and Plan (1) Melena Status: Acute (2) Perforation of colon Status: Acute (3) Anemia Status: Chronic (4) CHF (congestive heart failure) Status: Acute
[2018-03-04] MEDS: metroNIDAZOLE 500mg/100ml NS 100 ML IVPB SCH ×3 (00:51→16:43)
[2018-03-04 05:49] LABS: HEMOGLOBIN 9.3 g/dL (12.0-16.0); MEAN CELL VOLUME 92.3 fl (81.0-99.0); MEAN CORPUSCULAR HEMOGLOBIN 28.5 pg (27.0-31.0); MEAN CORPUSCULAR HGB CONC 30.9 g/dL (33.0-37.0); RBC 3.26 Mil/uL (3.80-5.20); RED CELL DISTRIBUTION WIDTH 22.9 % (11.5-14.5); WHITE BLOOD COUNT 11.4 K/uL (4.8-10.8)
[2018-03-04 06:02] LABS: BLOOD UREA NITROGEN 11 mg/dl (7-17); CALCIUM 7.8 mg/dL (8.4-10.2); GFR AFRICAN-AMERICAN > 60; GFR NON-AFRICAN AMERICAN > 60
[2018-03-04] MEDS: Levothyroxine 175 MCG TAB PO SCH (06:06)
[2018-03-04] MEDS ORDERED: Potassium Chloride 20 mEq 100 ML IVPB ONE (07:26)
[2018-03-04] MEDS ORDERED: Potassium Chloride 20 mEq/15 ml LIQ UD PO ONE (07:27)
[2018-03-04] MEDS: Albuterol-Ipratrop 3 mg / 0.5 (3 ml) UD INH SCH ×4 (07:33→19:04)
[2018-03-04] MEDS: Fluticasone-Salmeterol 250-50mcg Diskus IH SCH ×2 (08:28→21:49)
[2018-03-04] MEDS: Olopatadine 0.1% Opht SOLN OU SCH (08:29)
--- NOTE | 2018-03-04 09:32 | CP.PCM.PN ---
Subjective - Date & Time of Evaluation Date of Evaluation: 03/04/18 Time of Evaluation: 08:45 - Subjective Subjective: No fever Pt is in better spirits today eating breakfast by herself, tolerating diet denies CP no SOB minimal abd pain moderate amount of dark fluid draining from Colostomy Objective - Vital Signs/Intake and Output Vital Signs (last 24 hours): Temp Pulse Resp BP Pulse Ox 97.9 F 85 20 149/77 100 03/04/18 07:57 03/04/18 08:29 03/04/18 07:57 03/04/18 08:29 03/04/18 07:57 - Medications Medications: Current Medications Acetaminophen (Tylenol 650 Mg Supp) 650 mg [place] Q6 PRN PRN Reason: Fever >100.4 F Last Admin: 02/25/18 23:26 Dose: 650 mg Albuterol/Ipratropium (Duoneb 3 Mg/0.5 Mg (3 Ml) Ud) 3 ml INH RQID [facility] Last Admin: 03/04/18 07:33 Dose: 3 ml Atorvastatin Calcium (Lipitor) 40 mg PO QPM [facility] Last Admin: 03/03/18 18:00 Dose: 40 mg Diltiazem HCl (Cardizem) 30 mg PO TID [facility] Last Admin: 03/04/18 08:28 Dose: 30 mg Furosemide (Lasix) 40 mg PO DAILY [facility] Last Admin: 02/25/18 09:00 Dose: Not Given Hydralazine HCl (Apresoline) 10 mg IV Q6 PRN PRN Reason: SBP >160 Last Admin: 03/03/18 20:06 Dose: 10 mg Hydromorphone HCl (Dilaudid) 1 mg IVP Q4 PRN PRN Reason: Pain, moderate (4-7) Last Admin: 02/26/18 23:53 Dose: 1 mg Iron Sucrose 100 mg/ Sodium (Chloride) 105 mls @ 105 mls/hr IVPB DAILY [facility] Last Admin: 03/03/18 10:27 Dose: 105 mls/hr Metronidazole (Flagyl 500mg/100ml Ns) 100 mls @ 100 mls/hr IVPB Q8 [facility]SE A PRN Reason: Protocol Last Admin: 03/04/18 08:32 Dose: 100 mls/hr Ceftriaxone Sodium 1 gm/ (Sodium Chloride) 100 mls @ 100 mls/hr IVPB DAILY [facility] PRN Reason: Protocol Last Admin: 03/04/18 08:32 Dose: 100 mls/hr Levothyroxine Sodium (Synthroid) 175 mcg PO DAILY@0630 [facility] Last Admin: 03/04/18 06:06 Dose: 175 mcg Losartan Potassium (Cozaar) 100 mg PO DAILY [facility] Last Admin: 03/04/18 08:29 Dose: 100 mg Morphine Sulfate (Morphine) 5 mg IVP Q4H PRN PRN Reason: Pain, severe (8-10) Last Admin: 03/01/18 07:57 Dose: 5 mg Nitroglycerin (Nitrostat Sl Tab) 0.4 mg SL Q5MIN PRN PRN Reason: Chest pain Olopatadine HCl (Patanol 0.1% Opht Soln) 1 drop OU DAILY [facility] Last Admin: 03/04/18 08:29 Dose: 1 drop Ondansetron HCl (Zofran Inj) 4 mg IVP Q4 PRN PRN Reason: Nausea/Vomiting Last Admin: 02/20/18 03:54 Dose: 4 mg Pantoprazole Sodium (Protonix Inj) 40 mg IVP DAILY [facility] Last Admin: 03/04/18 08:30 Dose: 40 mg Potassium Chloride (K-Dur 20 Meq Er Tab) 20 meq PO QPM [facility] Last Admin: 02/24/18 17:28 Dose: 20 meq Fluticasone/Salmeterol (Advair Diskus 250/50) 1 puff IH Q12 [facility] Last Admin: 03/04/18 08:28 Dose: 1 puff - Labs Labs: 03/04/18 04:20 03/04/18 04:20 PT 15.4 Seconds (9.8-13.1) H 03/01/18 05:20 INR 1.4 (0.9-1.2) H 03/01/18 05:20 APTT 35.9 Seconds (25.6-37.1) 02/26/18 04:35 - Constitutional Appears: No Acute Distress - Head Exam Head Exam: NORMAL INSPECTION, NORMOCEPHALIC - Eye Exam Eye Exam: EOMI, Normal appearance Pupil Exam: NORMAL ACCOMODATION - ENT Exam ENT Exam: Mucous Membranes Dry, Normal External Ear Exam - Neck Exam Neck Exam: Full ROM. absent: Meningismus - Respiratory Exam Respiratory Exam: Rhonchi, NORMAL BREATHING PATTERN. absent: Respiratory Distress - Cardiovascular Exam Cardiovascular Exam: Tachycardia, Irregular Rhythm, +S1, +S2 - GI/Abdominal Exam GI & Abdominal Exam: Tenderness, Normal Bowel Sounds Additional comments: Left Colostomy - with moderate amount of dark liquid drainage Midline Surgical wound - a small area where there is erythema and some drainage on the upper portion - Extremities Exam Extremities Exam: Full ROM, Normal Capillary Refill. absent: Calf Tenderness - Back Exam Back Exam: absent: CVA tenderness (L), CVA tenderness (R) - Neurological Exam Neurological Exam: Awake, CN II-XII Intact Additional comments: oriented to person , place - Psychiatric Exam Psychiatric exam: normal mood and affect - Skin Skin Exam: Dry, Warm Assessment and Plan - Assessment and Plan (Free Text) Assessment: 87 year old female with a past medical history significant for coronary artery disease, essential hypertension, atrial fibrillation (was on Eliquis starting 1 month ago), congestive heart failure, type 2 DM, COPD, diverticulitis, sleep apnea, and hypothyroidism, admitted to ICU for upper GI bleed. Patient's hgb found to be 5.2 on admission . She was transfused 2 unit PRBC , GI consulted and underwent EGD that showed no active bleed. Eliquis on hold since admission. No more bleeding episodes noted since admission . She was started empirically on Zosyn after spiking fever 02/23 and being somewhat sleepy. Urine cx reported as < [id number] colonies of mixed tarah. Taken for colonoscopy 02/[address] Calvert that showed diverticulosis, no active bleed. Post colonoscopy developed severe intractable abdominal pain secondary to colon perforation . Taken to OR and underwent Emergency exploratory laparatomy with sigmoid resection and sigmoid colostomy. Transfused 2 PRBC and 2 FFP in OR . Maintained intubated post op and monitored in ICU. Extubated on 02/26 Afib with RVR on monitor post op . Digoxin IV started 03/02 hypertensive urgency, labetolol given 03/03 Oozing from op site, poss hematoma, will monitor per surgery. 1. Colon perforation post colonoscopy s/p exploratory laparatomy with sigmoid resection and colostomy 02/25 Surgery following pt- small area of oozing serosanguinous noted ( will monitor ) Continue IVF hydration. Monitor I/O closely since patient has CHF cont IV Ceftriaxone and Flagyl On Morphine PRN for pain control ID consulted Upgrade diet to Full Liquid NGT d/c Colostomy draining dark fluid 2. Acute blood loss anemia secondary to GI bleed with melena Hgb 5.2 on admission s/p total 6 units PRBC transfusion Hold Eliquis On Protonix IV cont Venofer IV GI following . EGD and colonoscopy showed no active bleeding 3. Diastolic chronic CHF (congestive heart failure), without exacerbation stable hold Lasix 40mg , Metoprolol for now ECHO: normal LV function on previous admission. Monitor I/O closely cont Losartan 4. COPD (chronic obstructive pulmonary disease), mild exacerbation Maintained intubated post op , extubated 02/26 Dr Sorto on consult Continue Duonebs 5. CAD (coronary artery disease) Chronic Holding ASA and Eliquis due to GI bleed losartan and BB on hold 6. Hypertension restart Cardizem- increase dose monitor closely 7. Atrial fibrillation with RVR Digoxin IV given Eliquis on hold, rpt INR as noted some coagulopathy Cardizem restarted- increase dose 8. Diabetes mellitus, type II Chronic Insulin sliding scale. metformin on hold 9. Hypothyroidism Chronic levothyroxine 175mcg PO daily 10. DVT prophylaxis SCDs start Lovenox proph dose only
--- NOTE | 2018-03-04 10:41 | CP.PCM.PN ---
Subjective - Date & Time of Evaluation Date of Evaluation: 03/04/18 Time of Evaluation: 10:37 - Subjective Subjective: SURGERY NOTE FOR DR. UNDERWOOD covering for DR. BAEZ 87F seen and examined at bedside. Patient resting comfortable, tolerating diet, passing gas and having bowel movements. Denies fevers or chills. Pain is well controlled. Objective - Vital Signs/Intake and Output Vital Signs (last 24 hours): Temp Pulse Resp BP Pulse Ox 97.9 F 85 20 149/77 100 03/04/18 07:57 03/04/18 08:29 03/04/18 07:57 03/04/18 08:29 03/04/18 07:57 - Medications Medications: Current Medications Acetaminophen (Tylenol 650 Mg Supp) 650 mg [place] Q6 PRN PRN Reason: Fever >100.4 F Last Admin: 02/25/18 23:26 Dose: 650 mg Albuterol/Ipratropium (Duoneb 3 Mg/0.5 Mg (3 Ml) Ud) 3 ml INH RQID [facility] Last Admin: 03/04/18 07:33 Dose: 3 ml Atorvastatin Calcium (Lipitor) 40 mg PO QPM [facility] Last Admin: 03/03/18 18:00 Dose: 40 mg Diltiazem HCl (Cardizem) 30 mg PO TID [facility] Last Admin: 03/04/18 08:28 Dose: 30 mg Enoxaparin Sodium (Lovenox) 40 mg SC DAILY [facility] PRN Reason: Protocol Furosemide (Lasix) 40 mg PO DAILY [facility] Last Admin: 02/25/18 09:00 Dose: Not Given Hydralazine HCl (Apresoline) 10 mg IV Q6 PRN PRN Reason: SBP >160 Last Admin: 03/03/18 20:06 Dose: 10 mg Hydromorphone HCl (Dilaudid) 1 mg IVP Q4 PRN PRN Reason: Pain, moderate (4-7) Last Admin: 02/26/18 23:53 Dose: 1 mg Iron Sucrose 100 mg/ Sodium (Chloride) 105 mls @ 105 mls/hr IVPB DAILY [facility] Last Admin: 03/03/18 10:27 Dose: 105 mls/hr Metronidazole (Flagyl 500mg/100ml Ns) 100 mls @ 100 mls/hr IVPB Q8 JOSE A PRN Reason: Protocol Last Admin: 03/04/18 08:32 Dose: 100 mls/hr Ceftriaxone Sodium 1 gm/ (Sodium Chloride) 100 mls @ 100 mls/hr IVPB DAILY [facility] A PRN Reason: Protocol Last Admin: 03/04/18 08:32 Dose: 100 mls/hr Levothyroxine Sodium (Synthroid) 175 mcg PO DAILY@0630 [facility] Last Admin: 03/04/18 06:06 Dose: 175 mcg Losartan Potassium (Cozaar) 100 mg PO DAILY [facility] Last Admin: 03/04/18 08:29 Dose: 100 mg Morphine Sulfate (Morphine) 5 mg IVP Q4H PRN PRN Reason: Pain, severe (8-10) Last Admin: 03/01/18 07:57 Dose: 5 mg Nitroglycerin (Nitrostat Sl Tab) 0.4 mg SL Q5MIN PRN PRN Reason: Chest pain Olopatadine HCl (Patanol 0.1% Opht Soln) 1 drop OU DAILY [facility] Last Admin: 03/04/18 08:29 Dose: 1 drop Ondansetron HCl (Zofran Inj) 4 mg IVP Q4 PRN PRN Reason: Nausea/Vomiting Last Admin: 02/20/18 03:54 Dose: 4 mg Pantoprazole Sodium (Protonix Inj) 40 mg IVP DAILY [facility] Last Admin: 03/04/18 08:30 Dose: 40 mg Potassium Chloride (K-Dur 20 Meq Er Tab) 20 meq PO QPM [facility] Last Admin: 02/24/18 17:28 Dose: 20 meq Fluticasone/Salmeterol (Advair Diskus 250/50) 1 puff IH Q12 [facility] Last Admin: 03/04/18 08:28 Dose: 1 puff - Labs Labs: 03/04/18 04:20 03/04/18 04:20 PT 15.4 Seconds (9.8-13.1) H 03/01/18 05:20 INR 1.4 (0.9-1.2) H 03/01/18 05:20 APTT 35.9 Seconds (25.6-37.1) 02/26/18 04:35 - Constitutional Appears: Non-toxic, No Acute Distress - Respiratory Exam Respiratory Exam: Clear to Ausculation Bilateral, NORMAL BREATHING PATTERN - Cardiovascular Exam Cardiovascular Exam: REGULAR RHYTHM, +S1, +S2 - GI/Abdominal Exam GI & Abdominal Exam: Soft. absent: Distended, Firm, Guarding, Rigid, Tenderness , Rebound Additional comments: incision draining small amount serosanguinous fluid this AM Ostomy pink and patent - Neurological Exam Neurological Exam: Awake Assessment and Plan - Assessment and Plan (Free Text) Assessment: 87F s/p ex lap for rectosigmoid perforation and free air with resection and colostomy POD#7 Plan: - Advance diet as tolerated - Monitor drainage from incisional site - monitor ostomy Further recs discuss with Dr. Gilbert Ellis, PGY2
[2018-03-04] MEDS: Enoxaparin 40 mg Syringe SC SCH (12:38)
--- NOTE | 2018-03-04 17:18 | CP.PCM.PN ---
Subjective - Date & Time of Evaluation Date of Evaluation: 03/04/18 Time of Evaluation: 09:00 - Subjective Subjective: afebrile awake alert c/o pain nad Objective - Vital Signs/Intake and Output Vital Signs (last 24 hours): Temp Pulse Resp BP Pulse Ox 97.4 F L 89 20 137/53 L 99 03/04/18 15:51 03/04/18 16:42 03/04/18 15:51 03/04/18 16:42 03/04/18 15:51 - Medications Medications: Current Medications Acetaminophen (Tylenol 650 Mg Supp) 650 mg [place] Q6 PRN PRN Reason: Fever >100.4 F Last Admin: 02/25/18 23:26 Dose: 650 mg Albuterol/Ipratropium (Duoneb 3 Mg/0.5 Mg (3 Ml) Ud) 3 ml INH RQID [facility] Last Admin: 03/04/18 15:48 Dose: 3 ml Atorvastatin Calcium (Lipitor) 40 mg PO QPM [facility] Last Admin: 03/04/18 17:00 Dose: 40 mg Diltiazem HCl (Cardizem) 30 mg PO QID [facility] Last Admin: 03/04/18 16:42 Dose: 30 mg Enoxaparin Sodium (Lovenox) 40 mg SC DAILY [facility] PRN Reason: Protocol Last Admin: 03/04/18 12:38 Dose: 40 mg Furosemide (Lasix) 40 mg PO DAILY [facility] Last Admin: 02/25/18 09:00 Dose: Not Given Hydralazine HCl (Apresoline) 10 mg IV Q6 PRN PRN Reason: SBP >160 Last Admin: 03/03/18 20:06 Dose: 10 mg Iron Sucrose 100 mg/ Sodium (Chloride) 105 mls @ 105 mls/hr IVPB DAILY [facility] Last Admin: 03/04/18 12:36 Dose: 105 mls/hr Metronidazole (Flagyl 500mg/100ml Ns) 100 mls @ 100 mls/hr IVPB Q8 JOSE A PRN Reason: Protocol Last Admin: 03/04/18 16:43 Dose: 100 mls/hr Ceftriaxone Sodium 1 gm/ (Sodium Chloride) 100 mls @ 100 mls/hr IVPB DAILY [facility] PRN Reason: Protocol Last Admin: 03/04/18 08:32 Dose: 100 mls/hr Levothyroxine Sodium (Synthroid) 175 mcg PO DAILY@0630 [facility] Last Admin: 03/04/18 06:06 Dose: 175 mcg Losartan Potassium (Cozaar) 100 mg PO DAILY [facility] Last Admin: 03/04/18 08:29 Dose: 100 mg Nitroglycerin (Nitrostat Sl Tab) 0.4 mg SL Q5MIN PRN PRN Reason: Chest pain Olopatadine HCl (Patanol 0.1% Opht Soln) 1 drop OU DAILY [facility] Last Admin: 03/04/18 08:29 Dose: 1 drop Ondansetron HCl (Zofran Inj) 4 mg IVP Q4 PRN PRN Reason: Nausea/Vomiting Last Admin: 02/20/18 03:54 Dose: 4 mg Pantoprazole Sodium (Protonix Inj) 40 mg IVP DAILY [facility] Last Admin: 03/04/18 08:30 Dose: 40 mg Potassium Chloride (K-Dur 20 Meq Er Tab) 20 meq PO QPM [facility] Last Admin: 02/24/18 17:28 Dose: 20 meq Fluticasone/Salmeterol (Advair Diskus 250/50) 1 puff IH Q12 [facility] Last Admin: 03/04/18 08:28 Dose: 1 puff - Labs Labs: 03/04/18 04:20 03/04/18 04:20 PT 15.4 Seconds (9.8-13.1) H 03/01/18 05:20 INR 1.4 (0.9-1.2) H 03/01/18 05:20 APTT 35.9 Seconds (25.6-37.1) 02/26/18 04:35 - Constitutional Appears: Non-toxic, Chronically Ill - Head Exam Head Exam: NORMOCEPHALIC - Eye Exam Eye Exam: PERRL. absent: Scleral icterus - ENT Exam ENT Exam: Mucous Membranes Dry - Neck Exam Neck Exam: absent: Lymphadenopathy - Respiratory Exam Respiratory Exam: Decreased Breath Sounds - Cardiovascular Exam Cardiovascular Exam: REGULAR RHYTHM - GI/Abdominal Exam GI & Abdominal Exam: Distended, Soft Additional comments: incision healing some serous drainage of incision inferiorly colostomy ok - Rectal Exam Rectal Exam: Deferred - Exam Exam: NORMAL INSPECTION - Extremities Exam Extremities Exam: absent: Pedal Edema - Back Exam Back Exam: absent: CVA tenderness (L), CVA tenderness (R) - Neurological Exam Neurological Exam: Alert, Awake, Oriented x3 Assessment and Plan (1) Melena Status: Acute (2) Perforation of colon Status: Acute (3) Anemia Status: Chronic (4) CHF (congestive heart failure) Status: Acute
[2018-03-05] MEDS: metroNIDAZOLE 500mg/100ml NS 100 ML IVPB SCH ×3 (00:44→16:39)
[2018-03-05] MEDS: Levothyroxine 175 MCG TAB PO SCH (06:29)
[2018-03-05 06:47] LABS: BASO % 0.2 % (0.0-2.0); EOS # 0.2 K/uL (0.0-0.7); EOS % 1.2 % (0.0-4.0); HEMOGLOBIN 9.2 g/dL (12.0-16.0); LYMPH # 1.2 K/uL (1.0-4.3); LYMPH % 9.6 % (20.0-40.0); MEAN CELL VOLUME 92.4 fl (81.0-99.0); MEAN CORPUSCULAR HGB CONC 31.4 g/dL (33.0-37.0); MONO # 1.1 K/uL (0.0-0.8); NEUT # 9.8 K/uL (1.8-7.0); NRBC % 0.2 % (0.0-0.0); PLATELET COUNT 354 K/uL (130-400); RBC 3.19 Mil/uL (3.80-5.20); RED CELL DISTRIBUTION WIDTH 22.9 % (11.5-14.5); WHITE BLOOD COUNT 12.3 K/uL (4.8-10.8)
[2018-03-05] MEDS: Albuterol-Ipratrop 3 mg / 0.5 (3 ml) UD INH SCH ×4 (07:09→19:42)
--- NOTE | 2018-03-05 07:29 | CP.PCM.PN ---
Subjective - Date & Time of Evaluation Date of Evaluation: 03/05/18 Time of Evaluation: 07:24 - Subjective Subjective: SURGERY NOTE FOR DR. UNDERWOOD covering for DR. BAEZ 87 y.o female s/p ex lap for rectosigmoid perforation and free air with resection and colostomy POD#8. Patient is seen resting comfortably at bedside. Patient alert and awake. Patient denies acute overnight events. Denies nausea, fever, chills, vomiting. Reports pain. Pain well controlled. Patient tolerating diet. Objective - Vital Signs/Intake and Output Vital Signs (last 24 hours): Temp Pulse Resp BP Pulse Ox 98.2 F 92 H 18 114/54 L 95 03/05/18 05:24 03/05/18 05:24 03/05/18 05:24 03/05/18 05:24 03/05/18 05:24 - Medications Medications: Current Medications Acetaminophen (Tylenol 325mg Tab) 650 mg PO Q6 PRN PRN Reason: Fever >100.4 F Albuterol/Ipratropium (Duoneb 3 Mg/0.5 Mg (3 Ml) Ud) 3 ml INH RQID [facility] Last Admin: 03/05/18 07:09 Dose: 3 ml Atorvastatin Calcium (Lipitor) 40 mg PO QPM [facility] Last Admin: 03/04/18 17:00 Dose: 40 mg Diltiazem HCl (Cardizem) 30 mg PO QID [facility] Last Admin: 03/04/18 21:50 Dose: 30 mg Enoxaparin Sodium (Lovenox) 40 mg SC DAILY JO[facility] A PRN Reason: Protocol Last Admin: 03/04/18 12:38 Dose: 40 mg Furosemide (Lasix) 40 mg PO DAILY [facility] Last Admin: 02/25/18 09:00 Dose: Not Given Hydralazine HCl (Apresoline) 10 mg IV Q6 PRN PRN Reason: SBP >160 Last Admin: 03/03/18 20:06 Dose: 10 mg Iron Sucrose 100 mg/ Sodium (Chloride) 105 mls @ 105 mls/hr IVPB DAILY [facility] Last Admin: 03/04/18 12:36 Dose: 105 mls/hr Metronidazole (Flagyl 500mg/100ml Ns) 100 mls @ 100 mls/hr IVPB Q8 JOSE A PRN Reason: Protocol Last Admin: 03/05/18 00:44 Dose: 100 mls/hr Ceftriaxone Sodium 1 gm/ (Sodium Chloride) 100 mls @ 100 mls/hr IVPB DAILY [facility] A PRN Reason: Protocol Last Admin: 03/04/18 08:32 Dose: 100 mls/hr Levothyroxine Sodium (Synthroid) 175 mcg PO DAILY@0630 [facility] Last Admin: 03/05/18 06:29 Dose: 175 mcg Losartan Potassium (Cozaar) 100 mg PO DAILY [facility] Last Admin: 03/04/18 08:29 Dose: 100 mg Morphine Sulfate (Morphine) 5 mg IVP Q6H PRN PRN Reason: Pain, severe (8-10) Last Admin: 03/05/18 03:23 Dose: 5 mg Morphine Sulfate (Morphine) 2 mg IVP Q6 PRN PRN Reason: Pain, moderate (4-7) Nitroglycerin (Nitrostat Sl Tab) 0.4 mg SL Q5MIN PRN PRN Reason: Chest pain Olopatadine HCl (Patanol 0.1% Opht Soln) 1 drop OU DAILY [facility] Last Admin: 03/04/18 08:29 Dose: 1 drop Ondansetron HCl (Zofran Inj) 4 mg IVP Q4 PRN PRN Reason: Nausea/Vomiting Last Admin: 02/20/18 03:54 Dose: 4 mg Pantoprazole Sodium (Protonix Inj) 40 mg IVP DAILY [facility] Last Admin: 03/04/18 08:30 Dose: 40 mg Potassium Chloride (K-Dur 20 Meq Er Tab) 20 meq PO QPM [facility] Last Admin: 02/24/18 17:28 Dose: 20 meq Fluticasone/Salmeterol (Advair Diskus 250/50) 1 puff IH Q12 [facility] Last Admin: 03/04/18 21:49 Dose: 1 puff - Labs Labs: 03/05/18 05:40 03/04/18 04:20 PT 15.4 Seconds (9.8-13.1) H 03/01/18 05:20 INR 1.4 (0.9-1.2) H 03/01/18 05:20 APTT 35.9 Seconds (25.6-37.1) 02/26/18 04:35 - Constitutional Appears: Well, Non-toxic, No Acute Distress - Head Exam Head Exam: NORMAL INSPECTION - ENT Exam ENT Exam: Mucous Membranes Moist - Respiratory Exam Respiratory Exam: NORMAL BREATHING PATTERN - Cardiovascular Exam Cardiovascular Exam: +S1, +S2 - GI/Abdominal Exam Additional comments: Soft. absent: Distended, Firm, Guarding, Rigid, Tenderness, Rebound incision c/d/i without drainage noted surgical incision coapted, well re-approximated alaina intact Ostomy pink and patent Assessment and Plan - Assessment and Plan (Free Text) Assessment: 87F s/p ex lap for rectosigmoid perforation and free air with resection and colostomy POD#8 Plan: - c/w diet - monitor drainage from incision sites - monitor ostomy Further recs discuss with Dr. Gilbert Edmond DPM PGY-1
[2018-03-05 07:41] LABS: ALB/GLOB RATIO 0.7 (1.0-2.1); ALBUMIN 2.2 g/dL (3.5-5.0); ALT/SGPT 27 U/L (9-52); AST/SGOT 26 U/L (14-36); BLOOD UREA NITROGEN 10 mg/dl (7-17); CALCIUM 7.5 mg/dL (8.4-10.2); GFR AFRICAN-AMERICAN > 60; GFR NON-AFRICAN AMERICAN > 60
[2018-03-05] MEDS: Fluticasone-Salmeterol 250-50mcg Diskus IH SCH (08:21)
[2018-03-05 08:22] VITALS: RESP 20; O2SAT 98
[2018-03-05] MEDS: Olopatadine 0.1% Opht SOLN OU SCH (08:24)
[2018-03-05] MEDS: Enoxaparin 40 mg Syringe SC SCH (08:24)
[2018-03-05] MEDS ORDERED: Potassium Phosphate 30 MMOLE in Sodium Chloride 0.9% 250 ML IV ONE (08:28)
--- NOTE | 2018-03-05 09:05 | CP.PCM.PN ---
Objective - Vital Signs/Intake and Output Vital Signs (last 24 hours): Temp Pulse Resp BP Pulse Ox 98.0 F 92 H 20 132/70 98 03/05/18 08:21 03/05/18 08:23 03/05/18 08:22 03/05/18 08:23 03/05/18 08:22 - Medications Medications: Current Medications Acetaminophen (Tylenol 325mg Tab) 650 mg PO Q6 PRN PRN Reason: Fever >100.4 F Albuterol/Ipratropium (Duoneb 3 Mg/0.5 Mg (3 Ml) Ud) 3 ml INH RQID [facility] Last Admin: 03/05/18 07:09 Dose: 3 ml Atorvastatin Calcium (Lipitor) 40 mg PO QPM [facility] Last Admin: 03/04/18 17:00 Dose: 40 mg Diltiazem HCl (Cardizem) 30 mg PO QID [facility] Last Admin: 03/05/18 08:22 Dose: 30 mg Enoxaparin Sodium (Lovenox) 40 mg SC DAILY [facility] PRN Reason: Protocol Last Admin: 03/05/18 08:24 Dose: 40 mg Furosemide (Lasix) 40 mg PO DAILY [facility] Last Admin: 02/25/18 09:00 Dose: Not Given Hydralazine HCl (Apresoline) 10 mg IV Q6 PRN PRN Reason: SBP >160 Last Admin: 03/03/18 20:06 Dose: 10 mg Iron Sucrose 100 mg/ Sodium (Chloride) 105 mls @ 105 mls/hr IVPB DAILY [facility] Last Admin: 03/05/18 08:25 Dose: 105 mls/hr Metronidazole (Flagyl 500mg/100ml Ns) 100 mls @ 100 mls/hr IVPB Q8 [facility] PRN Reason: Protocol Last Admin: 03/05/18 08:24 Dose: 100 mls/hr Ceftriaxone Sodium 1 gm/ (Sodium Chloride) 100 mls @ 100 mls/hr IVPB DAILY [facility] PRN Reason: Protocol Last Admin: 03/05/18 08:25 Dose: 100 mls/hr Potassium Phosphate 30 mmole/ (Sodium Chloride) 260 mls @ 65 mls/hr IV ONCE ONE Stop: 03/05/18 12:27 Levothyroxine Sodium (Synthroid) 175 mcg PO DAILY@0630 [facility] Last Admin: 03/05/18 06:29 Dose: 175 mcg Losartan Potassium (Cozaar) 100 mg PO DAILY [facility] Last Admin: 03/05/18 08:23 Dose: 100 mg Morphine Sulfate (Morphine) 5 mg IVP Q6H PRN PRN Reason: Pain, severe (8-10) Last Admin: 03/05/18 03:23 Dose: 5 mg Morphine Sulfate (Morphine) 2 mg IVP Q6 PRN PRN Reason: Pain, moderate (4-7) Nitroglycerin (Nitrostat Sl Tab) 0.4 mg SL Q5MIN PRN PRN Reason: Chest pain Olopatadine HCl (Patanol 0.1% Opht Soln) 1 drop OU DAILY [facility] Last Admin: 03/05/18 08:24 Dose: 1 drop Ondansetron HCl (Zofran Inj) 4 mg IVP Q4 PRN PRN Reason: Nausea/Vomiting Last Admin: 02/20/18 03:54 Dose: 4 mg Pantoprazole Sodium (Protonix Inj) 40 mg IVP DAILY [facility] Last Admin: 03/05/18 08:24 Dose: 40 mg Potassium Chloride (K-Dur 20 Meq Er Tab) 20 meq PO QPM [facility] Last Admin: 02/24/18 17:28 Dose: 20 meq Fluticasone/Salmeterol (Advair Diskus 250/50) 1 puff IH Q12 [facility] Last Admin: 03/05/18 08:21 Dose: 1 puff - Labs Labs: 03/05/18 05:40 03/05/18 05:40 PT 15.4 Seconds (9.8-13.1) H 03/01/18 05:20 INR 1.4 (0.9-1.2) H 03/01/18 05:20 APTT 35.9 Seconds (25.6-37.1) 02/26/18 04:35
[2018-03-05 10:12] LABS: ANISOCYTOSIS MODERATE; BANDS 2 % (0-2); BASOPHIL 1 % (0-2); EOSINOPHIL 1 % (0-7); LYMPHOCYTE 12 % (20-50); MONOCYTE 9 % (0-10); NEUTROPHIL 75 % (42-75); PLATELET ESTIMATE NORMAL (NORMAL); TOTAL CELLS COUNTED 100
[2018-03-05 10:13] LABS: HYPOCHROMIC MODERATE; OVALOCYTES SLIGHT; SCHISTOCYTES SLIGHT; TEARDROP CELLS SLIGHT
--- NOTE | 2018-03-05 15:22 | CP.PCM.DIS ---
Provider - Provider Date of Admission: 02/19/18 17:32 Attending physician: Dae Barone DO Primary care physician: Dr Duran Consults: GI : Dr Calvert Pulm: Dr Sorto Surgery : Dr Montaño ID: DR Garcia Time Spent in preparation of Discharge (in minutes): 40 Diagnosis - Discharge Diagnosis (1) Perforation of colon Status: Acute (2) Acute blood loss anemia Status: Acute (3) GIB (gastrointestinal bleeding) Status: Acute (4) Chronic congestive heart failure Status: Chronic (5) Atrial fibrillation Status: Chronic (6) COPD (chronic obstructive pulmonary disease) Status: Chronic (7) Diabetes mellitus, type II Status: Chronic Priority: High (8) Hypertension Status: Chronic Priority: Medium (9) Hypothyroidism Status: Chronic Priority: Medium Hospital Course - Lab Results Lab Results: Micro Results 03/01/18 13:00 Nose MRSA Culture (Admit) - Final MRSA NOT DETECTED 02/25/18 13:50 Nose MRSA Culture (Admit) - Final MRSA NOT DETECTED 02/23/18 18:30 Urine,Clean Catch Urine Culture - Final 50-100,000 CFU/ML. MULTIPLE SPECIES. SUGGEST REPEAT SPECIMEN. 02/19/18 08:20 Nose MRSA Culture (Admit) - Final MRSA NOT DETECTED Most Recent Lab Values WBC 12.3 K/uL (4.8-10.8) H 03/05/18 05:40 RBC 3.19 Mil/uL (3.80-5.20) L 03/05/18 05:40 Hgb 9.2 g/dL (12.0-16.0) L 03/05/18 05:40 Hct 29.5 % (34.0-47.0) L 03/05/18 05:40 MCV 92.4 fl (81.0-99.0) 03/05/18 05:40 MCH 29.0 pg (27.0-31.0) 03/05/18 05:40 MCHC 31.4 g/dL (33.0-37.0) L 03/05/18 05:40 RDW 22.9 % (11.5-14.5) H 03/05/18 05:40 Plt Count 354 K/uL (130-400) 03/05/18 05:40 MPV 8.0 fl (7.2-11.7) 03/05/18 05:40 Neut % (Auto) 80.0 % (50.0-75.0) H 03/05/18 05:40 Lymph % (Auto) 9.6 % (20.0-40.0) L 03/05/18 05:40 Franklin % (Auto) 9.0 % (0.0-10.0) 03/05/18 05:40 Eos % (Auto) 1.2 % (0.0-4.0) 03/05/18 05:40 Baso % (Auto) 0.2 % (0.0-2.0) 03/05/18 05:40 Neut # (Auto) 9.8 K/uL (1.8-7.0) H 03/05/18 05:40 Lymph # (Auto) 1.2 K/uL (1.0-4.3) 03/05/18 05:40 Franklin # (Auto) 1.1 K/uL (0.0-0.8) H 03/05/18 05:40 Eos # (Auto) 0.2 K/uL (0.0-0.7) 03/05/18 05:40 Baso # (Auto) 0.0 K/uL (0.0-0.2) 03/05/18 05:40 Total Counted Cancelled 02/26/18 04:35 Neutrophils % (Manual) 75 % (42-75) 03/05/18 05:40 Band Neutrophils % 2 % (0-2) 03/05/18 05:40 Lymphocytes % (Manual) 12 % (20-50) L 03/05/18 05:40 Reactive Lymphs % Cancelled 02/26/18 04:35 Monocytes % (Manual) 9 % (0-10) 03/05/18 05:40 Eosinophils % (Manual) 1 % (0-7) 03/05/18 05:40 Basophils % (Manual) 1 % (0-2) 03/05/18 05:40 Metamyelocytes % Cancelled 02/26/18 04:35 Myelocytes % Cancelled 02/26/18 04:35 Promyelocytes % Cancelled 02/26/18 04:35 Blast Cells % Cancelled 02/26/18 04:35 Plasma Cell % (Manual) Cancelled 02/26/18 04:35 Nucleated RBC % Cancelled 02/26/18 04:35 Hypersegmented Polys Cancelled 02/26/18 04:35 Smudge Cells Cancelled 02/26/18 04:35 Toxic Granulation Cancelled 02/26/18 04:35 Dohle Bodies Cancelled 02/26/18 04:35 Isaac Rods Cancelled 02/26/18 04:35 Platelet Estimate Normal (NORMAL) 03/05/18 05:40 Plt Clumps, EDTA Cancelled 02/26/18 04:35 Large Platelets Present 03/01/18 05:20 Giant Platelets Cancelled 02/26/18 04:35 RBC Morphology Cancelled 02/26/18 04:35 Polychromasia Cancelled 02/26/18 04:35 Hypochromasia (manual) Moderate 03/05/18 05:40 Poikilocytosis (manual Cancelled 02/26/18 04:35 Basophilic Stippling Cancelled 02/26/18 04:35 Anisocytosis (manual) Moderate 03/05/18 05:40 Microcytosis (manual) Cancelled 02/26/18 04:35 Macrocytosis (manual) Slight 03/01/18 05:20 Spherocytes Cancelled 02/26/18 04:35 Sickle Cells Cancelled 02/26/18 04:35 Target Cells Cancelled 02/26/18 04:35 Tear Drop Cells Slight 03/05/18 05:40 Ovalocytes Slight 03/05/18 05:40 Stomatocytes Cancelled 02/26/18 04:35 Helmet Cells Cancelled 02/26/18 04:35 [place] Bodies Cancelled 02/26/18 04:35 Franklin Cells Cancelled 02/26/18 04:35 Acanthocytes (Spur) Cancelled 02/26/18 04:35 Rouleaux Cancelled 02/26/18 04:35 Schistocytes Slight 03/05/18 05:40 Retic Count 3.8 % (0.5-1.5) H D 02/22/18 11:45 PT 15.4 Seconds (9.8-13.1) H 03/01/18 05:20 INR 1.4 (0.9-1.2) H 03/01/18 05:20 APTT 35.9 Seconds (25.6-37.1) 02/26/18 04:35 pCO2 38 mm/Hg (35-45) 02/26/18 04:46 pO2 56 mm/Hg (80-100) L 02/26/18 04:46 HCO3 26.6 mmol/L (21-28) 02/26/18 04:46 ABG pH 7.45 (7.35-7.45) 02/26/18 04:46 ABG Total CO2 27.6 mmol/L (22-28) 02/26/18 04:46 ABG O2 Saturation 91.4 % (95-98) L 02/26/18 04:46 ABG Base Excess 2.4 mmol/L (-2.0-3.0) 02/26/18 04:46 Fredi Test Yes 02/26/18 04:46 ABG Potassium 4.7 mmol/L (3.6-5.2) 02/26/18 04:46 A-a O2 Difference 182.0 mm/Hg 02/26/18 04:46 Sodium 136.0 mmol/L (132-148) 02/26/18 04:46 Chloride 107.0 mmol/L (98-107) 02/26/18 04:46 Glucose 160 mg/dL (65-105) H 02/26/18 04:46 Lactate 2.1 mmol/L (0.7-2.1) 02/26/18 04:46 Vent Mode Prvc ac 02/26/18 04:46 Mechanical Rate 12 02/26/18 04:46 FiO2 40.0 % 02/26/18 04:46 Tidal Volume 500 02/26/18 04:46 PEEP 5 02/26/18 04:46 Blood Gas Comments Lac=2.2 02/25/18 17:57 Crit Value Called To celeste Meneses 02/25/18 17:57 Crit Value Called By 02/25/18 17:57 Crit Value Read Back Y 02/25/18 17:57 Blood Gas Notified Time 1803 02/25/18 17:57 Sodium 136 mmol/l (132-148) 03/05/18 05:40 Potassium 3.5 MMOL/L (3.6-5.0) L 03/05/18 05:40 Chloride 104 mmol/L (98-107) 03/05/18 05:40 Carbon Dioxide 27 mmol/L (22-30) 03/05/18 05:40 Anion Gap 9 (10-20) L 03/05/18 05:40 BUN 10 mg/dl (7-17) 03/05/18 05:40 Creatinine 0.4 mg/dl (0.7-1.2) L 03/05/18 05:40 Est GFR ( Amer) > 60 03/05/18 05:40 Est GFR (Non-Af Amer) > 60 03/05/18 05:40 POC Glucose (mg/dL) 168 mg/dL (65-110) H 03/05/18 05:55 Random Glucose 156 mg/dL (65-105) H 03/05/18 05:40 Calcium 7.5 mg/dL (8.4-10.2) L 03/05/18 05:40 Phosphorus 1.9 mg/dl (2.5-4.5) L 03/05/18 05:40 Magnesium 1.8 MG/DL (1.6-2.3) 03/05/18 05:40 Iron 25 ug/dL (37-170) L 02/22/18 11:45 TIBC 397 ug/dL (250-450) 02/22/18 11:45 % Saturation 6 % (20-55) L 02/22/18 11:45 Transferrin 318.32 mg/dL (206-381) 02/22/18 11:45 Ferritin 10.0 ng/Ml (11.1-264.0) L 02/22/18 11:45 Total Bilirubin 0.4 mg/dl (0.2-1.3) 03/05/18 05:40 AST 26 U/L (14-36) 03/05/18 05:40 ALT 27 U/L (9-52) 03/05/18 05:40 Alkaline Phosphatase 55 U/L (38-126) 03/05/18 05:40 Total Protein 5.1 G/DL (6.3-8.2) L 03/05/18 05:40 Albumin 2.2 g/dL (3.5-5.0) L 03/05/18 05:40 Globulin 2.9 gm/dL (2.2-3.9) 03/05/18 05:40 Albumin/Globulin Ratio 0.7 (1.0-2.1) L 03/05/18 05:40 Vitamin B12 309 pg/mL (239-931) 02/22/18 11:45 Folate 9.8 ng/mL 02/22/18 11:45 Thyroxine (T4) 4.72 ug/dl (5.5-11.0) L 02/26/18 04:35 Total T3 0.276 nmol/L (1.49-2.60) L 02/26/18 04:35 TSH 3rd Generation 5.57 mIU/ML (0.46-4.68) H 02/26/18 04:35 Arterial Blood Potassium 4.7 mmol/L (3.6-5.2) 02/26/18 04:46 Urine Color Karla (YELLOW) 02/23/18 18:30 Urine Clarity Turbid (Clear) 02/23/18 18:30 Urine pH 6.0 (5.0-8.0) 02/23/18 18:30 Ur Specific [place] 1.028 (1.003-1.030) 02/23/18 18:30 Urine Protein 30 mg/dL (NEGATIVE) 02/23/18 18:30 Urine Glucose (UA) Neg mg/dL (Normal) 02/23/18 18:30 Urine Ketones Negative mg/dL (NEGATIVE) 02/23/18 18:30 Urine Blood Large (NEGATIVE) 02/23/18 18:30 Urine Nitrate Negative (NEGATIVE) 02/23/18 18:30 Urine Bilirubin Negative (NEGATIVE) 02/23/18 18:30 Urine Urobilinogen 0.2-1.0 mg/dL (0.2-1.0) 02/23/18 18:30 Ur Leukocyte Esterase Mod Olvin/uL (Negative) 02/23/18 18:30 Urine RBC (Auto) 141 /hpf (0-3) H 02/23/18 18:30 Urine Microscopic WBC 41 /hpf (0-5) H 02/23/18 18:30 Ur Squamous Epith Cells 9 /hpf (0-5) H 02/23/18 18:30 Urine Bacteria Few (<OCC) H 02/23/18 18:30 Digoxin 1.5 ng/mL (0.8-2.0) 03/01/18 05:20 Blood Type O NEGATIVE 02/23/18 14:18 Antibody Screen Positive 02/23/18 14:18 Antibody Identification Anti D Anti K 04/16/18 14:18 Antibody Identification Anti D Anti K 02/23/18 14:18 Crossmatch See Detail 02/23/18 14:18 BBK History Checked Patient has bt 02/23/18 14:18 - Hospital Course Hospital Course: 87 year old female with a past medical history significant for coronary artery disease, essential hypertension, atrial fibrillation (was on Eliquis starting 1 month ago), congestive heart failure, type 2 DM, COPD, diverticulitis, sleep apnea, and hypothyroidism, admitted to ICU for upper GI bleed. Patient's hgb found to be 5.2 on admission . She was transfused 2 unit PRBC , GI consulted and underwent EGD that showed no active bleed. Eliquis on hold since admission. No more bleeding episodes noted since admission . She was started empirically on Zosyn after spiking fever 02/23 and being somewhat sleepy. Urine cx reported as < [id number] colonies of mixed tarah. Taken for colonoscopy 02/[address] Calvert that showed diverticulosis, no active bleed. Post colonoscopy developed severe intractable abdominal pain secondary to colon perforation . Taken to OR and underwent Emergency exploratory laparatomy with sigmoid resection and sigmoid colostomy. Transfused 2 PRBC and 2 FFP in OR . Maintained intubated post op and monitored in ICU. Extubated on 02/26 Afib with RVR on monitor post op . Digoxin IV started 03/02 hypertensive urgency, labetolol given 1. Colon perforation post colonoscopy s/p exploratory laparatomy with sigmoid resection and colostomy 02/25 Surgery following pt cont IV Ceftriaxone and Flagyl x 1 more week Pain mgt ID consulted: Dr Garcia Upgrade diet to Soft diet NGT d/c Colostomy draining yellowish liquid stool Cleared by Surgery for discharge to [facility] 2. Acute blood loss anemia secondary to GI bleed with melena Hgb 5.2 on admission s/p total 6 units PRBC transfusion Hold Eliquis Received IV Venofer cont Protonix GI consulted EGD and colonoscopy showed no active bleeding 3. Diastolic chronic CHF (congestive heart failure), without exacerbation stable cont Lasix 40mg , Losartan ECHO: normal LV function on previous admission. Monitor I/O closely 4. COPD (chronic obstructive pulmonary disease), mild exacerbation Maintained intubated post op , extubated 02/26 Dr Sorto on consult Continue Duonebs 5. CAD (coronary artery disease) Chronic Holding ASA and Eliquis due to GI bleed cont Losartan 6. Hypertension restarted Cardizem- increase dose cont Losartan and Lasix monitor closely 7. Atrial fibrillation with RVR Digoxin IV given Eliquis d/c due to GI bleed Cardizem restarted- increased dose 8. Diabetes mellitus, type II Chronic Insulin sliding scale. restart Januvia 9. Hypothyroidism Chronic levothyroxine 175mcg PO daily 10. DVT prophylaxis SCDs Lovenox proph dose only Discharge Exam - Head Exam Head Exam: ATRAUMATIC, NORMAL INSPECTION, NORMOCEPHALIC - Eye Exam Eye Exam: EOMI, Normal appearance Pupil Exam: NORMAL ACCOMODATION - ENT Exam ENT Exam: Mucous Membranes Moist, Normal External Ear Exam - Neck Exam Neck exam: Full Rom - Respiratory Exam Respiratory Exam: NORMAL BREATHING PATTERN. absent: Rales, Wheezes, Respiratory Distress - Cardiovascular Exam Cardiovascular Exam: Irregular Rhythm, +S1, +S2 - GI/Abdominal Exam GI & Abdominal Exam: Normal Bowel Sounds Additional comments: mild tenderness midline surgical scar with alaina intact Colostomy with some yellow liquid stools in bag - Extremities Exam Extremities exam: normal capillary refill, pedal pulses present Additional comments: hand edema - Back Exam Back exam: absent: CVA tenderness (L), CVA tenderness (R) - Neurological Exam Neurological exam: Alert, CN II-XII Intact, Reflexes Normal Additional comments: oriented to person and place - Psychiatric Exam Psychiatric exam: Normal Affect, Normal Mood - Skin Skin Exam: Dry, Normal Color, Warm Discharge Plan - Discharge Medications Prescriptions: cefTRIAXone 1 gm [Rocephin 1 gram IVPB] 1 gm IVPB DAILY 7 Days bag metroNIDAZOLE 500mg/100ml NS [Flagyl 500MG/100ML NS] 500 mg IVPB Q8 7 Days bag Pantoprazole [Protonix] 40 mg PO DAILY #1 ect SITagliptin [Januvia] 100 mg PO DAILY 5 Days tab traMADol [Ultram] 50 mg PO TID PRN #1 tab PRN Reason: Pain, Moderate (4-7) - Follow Up Plan Condition: STABLE Disposition: TRANSF TO SNF Instructions: Anemia of Chronic Disease (DC), Hiatal Hernia (DC) Additional Instructions: ff up with Dr Montaño in 1 wk ff up with PMD after d/c from [facility] Referrals: Dayne Duran MD [Family Provider] - Adrien Calvert MD [Staff Provider] -
[2018-03-05 16:39] VITALS: PULSE 86
[2018-03-05 18:55] VITALS: BP 116/55; TEMP 98.5
== END 2018-03-05 20:00 | DRG 329 ==
LOC: H.ER 14:12 → SUPCPDRO 14:12 → H.ERHOLD 17:32 → H.ICU/CCU 20:19 → H.TEL 02-20 17:45 → H.ICU/CCU 02-25 11:13 → H.TEL 03-01 18:00
PROVIDERS: ADMIT Internal Medicine; ATTEND Internal Medicine
PROC: 30233K1 Transfusion of Nonautologous Frozen Plasma into Peripheral Vein, Percutaneous Approach (ICD-10-PCS; 2018-02-20)
PROC: 30233N1 Transfusion of Nonautologous Red Blood Cells into Peripheral Vein, Percutaneous Approach (ICD-10-PCS; 2018-02-20)
PROC: 0DJ08ZZ Inspection of Upper Intestinal Tract, Via Natural or Artificial Opening Endoscopic (ICD-10-PCS; principal; 2018-02-20 09:30)
PROC: 0DBN0ZZ Excision of Sigmoid Colon, Open Approach (ICD-10-PCS; 2018-02-25)
PROC: 0D1N0Z4 Bypass Sigmoid Colon to Cutaneous, Open Approach (ICD-10-PCS; 2018-02-25)
PROC: 0DJD8ZZ Inspection of Lower Intestinal Tract, Via Natural or Artificial Opening Endoscopic (ICD-10-PCS; 2018-02-25)
DX: K92.2 Gastrointestinal hemorrhage, unspecified (principal); K63.1 Perforation of intestine (nontraumatic); D62 Acute posthemorrhagic anemia; I50.32 Chronic diastolic (congestive) heart failure; K91.71 Accidental puncture and laceration of a digestive system organ or structure during a digestive system procedure; J44.1 Chronic obstructive pulmonary disease with (acute) exacerbation; E03.9 Hypothyroidism, unspecified; G47.30 Sleep apnea, unspecified; I25.10 Atherosclerotic heart disease of native coronary artery without angina pectoris; I48.2 Chronic atrial fibrillation; Z79.01 Long term (current) use of anticoagulants; I11.0 Hypertensive heart disease with heart failure; E11.9 Type 2 diabetes mellitus without complications; E78.00 Pure hypercholesterolemia, unspecified; M19.90 Unspecified osteoarthritis, unspecified site; F32.9 Major depressive disorder, single episode, unspecified; Z87.891 Personal history of nicotine dependence; Z99.81 Dependence on supplemental oxygen; Z86.73 Personal history of transient ischemic attack (TIA), and cerebral infarction without residual deficits; K44.9 Diaphragmatic hernia without obstruction or gangrene; K57.30 Diverticulosis of large intestine without perforation or abscess without bleeding; K64.8 Other hemorrhoids; Y83.8 Other surgical procedures as the cause of abnormal reaction of the patient, or of later complication, without mention of misadventure at the time of the procedure; K29.70 Gastritis, unspecified, without bleeding; I16.0 Hypertensive urgency

== ENCOUNTER 2018-04-06 20:07 | Inpatient (IN) | payer MEDICARE, MEDICAID ==
[2018-04-06 20:07] VITALS: PULSE 94
[2018-04-06] MEDS ORDERED: Sodium Chloride 0.9% 1,000 ML IV STA (20:24)
[2018-04-06] MEDS ORDERED: Piperacillin/Tazobact 3.375 GM in Sodium Chloride 0.9% 100 ML IVPB STA (20:25)
--- NOTE | 2018-04-06 20:30 | ED PDOC ---
HPI: General Adult Time Seen by Provider: 04/06/18 20:15 Chief Complaint (Nursing): Wound Check History Per: Family Onset/Duration Of Symptoms: Days Current Symptoms Are (Timing): Still Present Severity: Moderate Pain Scale Rating Of: 5 Additional Complaint(s): Transferred from rehab, noted to have prulent drainage from surgical wound x 2 days. S/p repair perforated viscus February 2018 with colostomy. Has been having abd pain but no vomiting or diarrhea. No fever. Past Medical History Vital Signs: Last Vital Signs Temp 98.9 F 04/06/18 21:00 Pulse 117 H 04/06/18 21:00 Resp 22 04/06/18 21:00 BP 127/66 04/06/18 21:00 Pulse Ox 100 04/06/18 21:00 - Medical History PMH: Arthritis, Asthma, Atrial Fibrillation, Bronchitis, CAD (Questionable), CHF , COPD, Depression, Diabetes (type II), Diverticulitis, HTN, Hypercholesterolemia, Hyperthyroidism, Hypothyroidism, Pneumonia, Sleep Apnea Denies: HIV, Chronic Kidney Disease - Surgical History Surgical History: Back Surgery, Cholecystectomy Denies: CABG Other surgeries: Repair perforated viscus with colostomy - Family History Family History: States: Unknown Family Hx, Hypertension - Immunization History Hx Tetanus Toxoid Vaccination: No Hx Influenza Vaccination: No Hx Pneumococcal Vaccination: No - Home Medications Home Medications: Ambulatory Orders Medication Instructions Recorded Olopatadine HCl [Pazeo] 1 drop EACHEYE DAILY #1 bottle 11/04/17 Losartan [Cozaar] 100 mg PO DAILY 01/22/18 Nitroglycerin [Nitrostat] 0.4 mg SL Q5MIN PRN 01/22/18 Atorvastatin [Lipitor] 40 mg PO QPM 02/19/18 Fluticasone/Vilanterol [Breo 1 puff IH DAILY 02/19/18 Ellipta 200-25 Mcg INH] Levothyroxine [Synthroid] 175 mcg PO DAILY 02/19/18 Acetaminophen [Tylenol 325mg tab] 650 mg PO Q6 PRN tab 03/05/18 Albuterol/Ipratropium [Duoneb 3 3 ml INH RQID neb 03/05/18 mg/0.5 mg (3 ml) UD] Enoxaparin [Lovenox] 40 mg SC DAILY syr 03/05/18 Furosemide [Lasix] 20 mg PO DAILY #1 tablet 03/05/18 Pantoprazole [Protonix] 40 mg PO DAILY #1 ect 03/05/18 Potassium Chloride 8 meq PO DAILY #1 capsule.er 03/05/18 SITagliptin [Januvia] 100 mg PO DAILY 5 Days tab 03/05/18 cefTRIAXone 1 gm [Rocephin 1 gram 1 gm IVPB DAILY 7 Days bag 03/05/18 IVPB] diltiaZEM [Cardizem] 30 mg PO QID tab 03/05/18 metroNIDAZOLE 500mg/100ml NS 500 mg IVPB Q8 7 Days bag 03/05/18 [Flagyl 500MG/100ML NS] traMADol [Ultram] 50 mg PO TID PRN #1 tab 03/05/18 - Allergies Allergies/Adverse Reactions: Allergies Allergy/AdvReac Type Severity Reaction Status Date / Time No Known Allergies Allergy Verified 01/22/18 12:12 Review of Systems ROS Statement: Except As Marked, All Systems Reviewed And Found Negative Gastrointestinal: Positive for: Abdominal Pain Physical Exam - Reviewed Nursing Documentation Reviewed: Yes Vital Signs Reviewed: Yes - Physical Exam Appears: Positive for: Non-toxic, Uncomfortable Head Exam: Positive for: ATRAUMATIC, NORMAL INSPECTION, NORMOCEPHALIC Skin: Positive for: Normal Color, Warm, DRY Eye Exam: Positive for: EOMI, Normal appearance, PERRL ENT: Positive for: Normal ENT Inspection Neck: Positive for: Normal, Painless ROM Cardiovascular/Chest: Positive for: Regular Rate, Rhythm, Tachycardia Respiratory: Positive for: Decreased Breath Sounds. Negative for: Respiratory Distress Gastrointestinal/Abdominal: Positive for: Bowel Sounds (Decreased), Distended, Other (Surgical wound erythemetous with purulent drainage lower pole.) Back: Positive for: Normal Inspection Extremity: Positive for: Normal ROM Neurologic/Psych: Positive for: Alert, Oriented - Laboratory Results Result Diagrams: 04/06/18 20:46 04/06/18 20:46 - ECG O2 Sat by Pulse Oximetry: 100 - Physician Consult Information Time Consulting Physican Contacted: 21:46 Physician Contacted: Peter Montaño Outcome Of Conversation: Will discuss with surgical services coordinator pending CT results. Aware that pt is on Vanco and Zosyn Disposition - Clinical Impression Clinical Impression: Wound infection, Sepsis - Patient ED Disposition Is Patient to be Admitted: Yes - Disposition Disposition Time: 21:48 Condition: GUARDED - Pt Status Changed To: Hospital Disposition Of: Inpatient - Admit Certification Admit to Inpatient:: After my assessment, the patient will require hospitalization for at least two midnights. This is because of the severity of symptoms shown, intensity of services needed, and/or the medical risk in this patient being treated as an outpatient. - POA Present On Arrival: Surgical Site Infection
[2018-04-06] MEDS ORDERED: Piperacillin/Tazobact 3.375 gm Inj IVPB ONE (20:41)
[2018-04-06] MEDS ORDERED: Vancomycin 1 g Inj ONE (20:41)
[2018-04-06 20:52] LABS: BASO % 0.3 % (0.0-2.0); EOS % 0.2 % (0.0-4.0); LYMPH # 3.1 K/uL (1.0-4.3); LYMPH % 26.4 % (20.0-40.0); MEAN CORPUSCULAR HGB CONC 31.8 g/dL (33.0-37.0); MEAN PLATELET VOLUME 8.3 fl (7.2-11.7); MONO # 0.8 K/uL (0.0-0.8); MONO % 7.2 % (0.0-10.0); NEUT # 7.6 K/uL (1.8-7.0); NEUT % 65.9 % (50.0-75.0); NRBC % 0.1 % (0.0-0.0); RBC 4.3 Mil/uL (3.80-5.20); RED CELL DISTRIBUTION WIDTH 20.3 % (11.5-14.5); WHITE BLOOD COUNT 11.6 K/uL (4.8-10.8)
[2018-04-06 20:53] LABS: VENOUS BLOOD GAS BASE EXCESS 2.3 mmol/L (0.0-2.0); VENOUS BLOOD GAS PCO2 39 mmHg (40-60); VENOUS BLOOD GAS PO2 49 mm/Hg (30-55); VENOUS BLOOD PH 7.44 (7.32-7.43)
[2018-04-06 20:59] LABS: HEMOGLOBIN 12.5 g/dL (12.0-16.0)
[2018-04-06 21:01] LABS: ALB/GLOB RATIO 0.6 (1.0-2.1); ALBUMIN 2.2 g/dL (3.5-5.0); ALT/SGPT 31 U/L (9-52); AST/SGOT 37 U/L (14-36); BLOOD UREA NITROGEN 11 mg/dl (7-17); CALCIUM 7.6 mg/dL (8.4-10.2); GFR AFRICAN-AMERICAN > 60; GFR NON-AFRICAN AMERICAN > 60
[2018-04-06] MEDS ORDERED: Sodium Chloride 0.9% 50 ML IV ONE (21:16)
[2018-04-06] MEDS ORDERED: Iohexol 300 100 ML IJ ONE (21:16)
[2018-04-06] MEDS ORDERED: Lactated Ringer's 1,000 ML IV SCH (21:30)
--- NOTE | 2018-04-06 21:30 | CP.PCM.HP ---
History of Present Illness - History of Present Illness History of Present Illness: CC: Purulent drainage from surgical wound (Patient is poor historian, provides minimal hx; mostly obtained from chart, ER staff) HPI: This is an 87 y/o female with multiple chronic conditions as noted below who was admitted to this hospital last month for GIB. At the time she had had a perforation of her colon following colonoscopy, and required surgery. Now she is s/p colostomy. She was noted to have abd pain and drainage from the surgical wound site for past 2 days, and was sent here. No f/c/n/v/d. ROS: limited given patient poor historian MHx: Arthritis, Asthma, Atrial Fibrillation, CAD (Questionable), CHF, COPD, Depression, Diabetes (type II), Diverticulitis, HTN, Hypercholesterolemia, Hypothyroidism, Sleep Apnea SHx: Recent bowel surgery as noted above, cholecystectomy, back surgery Allergies: NKDA Medications: Per med rec Family Hx: HTN runs in family, o/w unknown Social Hx: at a rehab currently; no EtOH no tobacco Cannot provide surrogate dec mkr info at this time. Present on Admission - Present on Admission Any Indicators Present on Admission: No Past Patient History - Infectious Disease Hx of Infectious Diseases: None - Past Medical History & Family History Past Medical History?: Yes - Past Social History Smoking Status: Former Smoker - CARDIAC Hx Atrial Fibrillation: Yes Hx Congestive Heart Failure: Yes Hx Hypercholesterolemia: Yes Hx Hypertension: Yes - PULMONARY Hx Asthma: Yes Hx Bronchitis: Yes Hx Chronic Obstructive Pulmonary Disease (COPD): Yes Hx Pneumonia: Yes Hx Sleep Apnea: Yes - NEUROLOGICAL Hx Neurological Disorder: No - HEENT Hx HEENT Problems: No - RENAL Hx Chronic Kidney Disease: No - ENDOCRINE/METABOLIC Hx Hyperthyroidism: Yes Hx Hypothyroidism: Yes - HEMATOLOGICAL/ONCOLOGICAL Hx Human Immunodeficiency Virus (HIV): No - INTEGUMENTARY Hx Dermatological Problems: No - MUSCULOSKELETAL/RHEUMATOLOGICAL Hx Arthritis: Yes - GASTROINTESTINAL Hx Diverticulitis: Yes - GENITOURINARY/GYNECOLOGICAL Hx Genitourinary Disorders: No - PSYCHIATRIC Hx Depression: Yes Hx Substance Use: No - SURGICAL HISTORY Hx Cholecystectomy: Yes Hx Coronary Artery Bypass Graft: No - ANESTHESIA Hx Anesthesia: Yes Hx Anesthesia Reactions: No Hx Malignant Hyperthermia: No Meds Allergies/Adverse Reactions: Allergies Allergy/AdvReac Type Severity Reaction Status Date / Time No Known Allergies Allergy Verified 01/22/18 12:12 Physical Exam - Constitutional Appears: No Acute Distress - Head Exam Head Exam: ATRAUMATIC, NORMOCEPHALIC - Eye Exam Eye Exam: EOMI, PERRL - ENT Exam ENT Exam: Mucous Membranes Dry - Neck Exam Neck exam: Positive for: Full Rom - Respiratory Exam Respiratory Exam: Clear to Auscultation Bilateral, NORMAL BREATHING PATTERN - Cardiovascular Exam Cardiovascular Exam: Tachycardia, +S1, +S2 - GI/Abdominal Exam GI & Abdominal Exam: Normal Bowel Sounds, Soft Additional comments: Drainage from surgical site, purulent - Extremities Exam Extremities exam: Positive for: full ROM, normal inspection - Neurological Exam Neurological exam: Alert, CN II-XII Intact, Oriented x3 - Psychiatric Exam Psychiatric exam: Normal Affect, Normal Mood - Skin Skin Exam: Dry, Warm Results - Vital Signs Recent Vital Signs: Last Vital Signs Temp 98.9 F 04/06/18 21:00 Pulse 117 H 04/06/18 21:00 Resp 22 04/06/18 21:00 BP 127/66 04/06/18 21:00 Pulse Ox 100 04/06/18 21:00 - Labs Result Diagrams: 04/06/18 20:46 04/06/18 20:46 Labs: Laboratory Results - last 24 hr 04/06/18 04/06/18 04/06/18 20:23 20:46 20:46 WBC 11.6 H RBC 4.30 Hgb 12.5 D Hct 39.2 MCV 91.0 MCH 29.0 MCHC 31.8 L RDW 20.3 H Plt Count 250 D MPV 8.3 Neut % (Auto) 65.9 Lymph % (Auto) 26.4 Curry % (Auto) 7.2 Eos % (Auto) 0.2 Baso % (Auto) 0.3 Neut # (Auto) 7.6 H Lymph # (Auto) 3.1 Curry # (Auto) 0.8 Eos # (Auto) 0.0 Baso # (Auto) 0.0 pO2 VBG pH VBG pCO2 VBG HCO3 VBG Total CO2 VBG O2 Sat (Calc) VBG Base Excess VBG Potassium Glucose Lactate FiO2 Sodium 133 Potassium 4.0 Chloride 100 Carbon Dioxide 21 L Anion Gap 16 BUN 11 Creatinine 0.5 L Est GFR ( Amer) > 60 Est GFR (Non-Af Amer) > 60 POC Glucose (mg/dL) 165 H Random Glucose 161 H Calcium 7.6 L Total Bilirubin 0.5 AST 37 H D ALT 31 Alkaline Phosphatase 133 H D Total Protein 5.7 L Albumin 2.2 L Globulin 3.5 Albumin/Globulin Ratio 0.6 L Venous Blood Potassium 04/06/18 20:50 WBC RBC Hgb Hct MCV MCH MCHC RDW Plt Count MPV Neut % (Auto) Lymph % (Auto) Curry % (Auto) Eos % (Auto) Baso % (Auto) Neut # (Auto) Lymph # (Auto) Curry # (Auto) Eos # (Auto) Baso # (Auto) pO2 49 VBG pH 7.44 H VBG pCO2 39 L VBG HCO3 26.4 VBG Total CO2 27.7 VBG O2 Sat (Calc) 87.3 H VBG Base Excess 2.3 H VBG Potassium 3.9 Glucose 170 H Lactate 1.3 FiO2 21.0 Sodium 131.0 L Potassium Chloride 101.0 Carbon Dioxide Anion Gap BUN Creatinine Est GFR ( Amer) Est GFR (Non-Af Amer) POC Glucose (mg/dL) Random Glucose Calcium Total Bilirubin AST ALT Alkaline Phosphatase Total Protein Albumin Globulin Albumin/Globulin Ratio Venous Blood Potassium 3.9 - Imaging and Cardiology CT scan - abdomen Status: Pending Assessment & Plan (1) Sepsis Assessment and Plan: 87 y/o female with sepsis in setting of infection of recent abdominal surgical incision; possible fistula formation. 1) Sepsis, abdominal wound infection -NPO, gentle IVF -Vanc and Zosyn started IV, continue -f/u BCx -Surgical consult for AM -Pain mgmt per scale -Hold BP medications for now given recent low BP 2) DM2 -- NPO, SSI with q6h accucheck 3) HTN -- hold BP meds overnight as above 4) Hypothyroid -- cont home meds 5) CHF -- stable, careful with IVF; restart lasix tmrw if BP permites 6) DVT PPx --SCDs only for now Status: Acute (2) Abdominal wall abscess at site of surgical wound Status: Acute (3) Diabetes mellitus, type II Status: Chronic Priority: High (4) CHF (congestive heart failure) Status: Acute (5) Atrial fibrillation Status: Chronic (6) COPD (chronic obstructive pulmonary disease) Status: Chronic (7) Hypertension Status: Chronic Priority: Medium (8) Hypothyroidism Status: Chronic Priority: Medium (9) DVT prophylaxis Status: Acute
[2018-04-06] MEDS: Insulin Lispro (humaLOG) 100 Units/ml Inj SC SCH (22:01)
--- NOTE | 2018-04-06 22:27 | CP.PCM.CON ---
History of Present Illness - History of Present Illness History of Present Illness: General Surgery Consult: Dr. Montaño 87F with PMHx HTN, Afib, CHF, COPD, DM, diverticulitis, sleep apnea, hypothyroidism, hypercholesterolemia, presents to [facility] ED with complaints of abdominal discomfort and purulent abdominal wound drainage. Patient's family at bedside from which most information was gathered from as patient is a poor historian. Patient operated on 02/25/18 for perforated viscous following c- scope. She is s/p laparotomy with massive lysis of adhesions, LAR, and Bebo' s POD #40. At time of examination patient reported nausea. However, she states she is feeling better since admission. As per patient's brother, patient's abdomen had been quite distended at senior care, and he reports she had a massive BM. Patient's lower abdominal region currently draining purulent fluid. PMHx: as stated above SurgHx: Recent bowel surgery as noted above, cholecystectomy,appendectomy, back surgery Allergies: NKDA Family Hx: non- contributory Social Hx: at a rehab currently; no EtOH no tobacco Review of Systems - Review of Systems Review of Systems: 12 pt ROS unremarkable except as stated in HPI Past Patient History - Infectious Disease Hx of Infectious Diseases: None - Past Medical History & Family History Past Medical History?: Yes - Past Social History Smoking Status: Former Smoker - CARDIAC Hx Cardiac Disorders: Yes - PULMONARY Hx Respiratory Disorders: Yes - NEUROLOGICAL Hx Neurological Disorder: No - HEENT Hx HEENT Problems: No - RENAL Hx Chronic Kidney Disease: No - ENDOCRINE/METABOLIC Hx Hyperthyroidism: Yes Hx Hypothyroidism: Yes - HEMATOLOGICAL/ONCOLOGICAL Hx Blood Disorders: Yes - INTEGUMENTARY Hx Dermatological Problems: Yes - MUSCULOSKELETAL/RHEUMATOLOGICAL Hx Musculoskeletal Disorders: Yes - GASTROINTESTINAL Hx Diverticulitis: Yes - GENITOURINARY/GYNECOLOGICAL Hx Genitourinary Disorders: No - PSYCHIATRIC Hx Depression: Yes - SURGICAL HISTORY Hx Cholecystectomy: Yes Hx Coronary Artery Bypass Graft: No - ANESTHESIA Hx Anesthesia: Yes Hx Anesthesia Reactions: No Hx Malignant Hyperthermia: No Meds Allergies/Adverse Reactions: Allergies Allergy/AdvReac Type Severity Reaction Status Date / Time No Known Allergies Allergy Verified 01/22/18 12:12 - Medications Medications: Current Medications Acetaminophen (Tylenol 325mg Tab) 650 mg PO Q6H PRN PRN Reason: Pain, Mild (1-3) Acetaminophen (Tylenol 325mg Tab) 650 mg PO Q6H PRN PRN Reason: Fever >100.4 F Albuterol/Ipratropium (Duoneb 3 Mg/0.5 Mg (3 Ml) Ud) 3 ml INH RQID [facility] Home Med (Fluticasone/Vilanterol [Breo Ellipta 200-25 Mcg Inh]) 1 puff IH DAILY [facility] Home Med (Olopatadine Hcl [Pazeo]) 1 drop EACHEYE DAILY [facility] Vancomycin HCl 1 gm/ Sodium (Chloride) 250 mls @ 166.667 mls/hr IVPB Q12 JOSE A PRN Reason: Protocol Piperacillin Sod/Tazobactam (Sod 4.5 gm/ Sodium Chloride) 100 mls @ 100 mls/hr IVPB Q8 JOSE A PRN Reason: Protocol Lactated Ringer's (Lactated Ringer's) 1,000 mls @ 75 mls/hr IV .[id number] [facility] Stop: 04/07/18 07:31 Insulin Human Lispro (Humalog) 0 units SC Q6H JOSE A PRN Reason: Protocol Last Admin: 04/06/18 22:01 Dose: Not Given Levothyroxine Sodium (Synthroid) 175 mcg PO DAILY@0630 [facility] Morphine Sulfate (Morphine) 2 mg IVP Q4H PRN PRN Reason: Pain, severe (8-10) Pantoprazole Sodium (Protonix Ec Tab) 40 mg PO DAILY [facility] Tramadol HCl (Ultram) 50 mg PO TID PRN PRN Reason: Pain, moderate (4-7) Physical Exam - Constitutional Appears: Non-toxic, No Acute Distress - Head Exam Head Exam: NORMOCEPHALIC - Eye Exam Eye Exam: EOMI, Normal appearance - ENT Exam ENT Exam: Mucous Membranes Moist - Respiratory Exam Respiratory Exam: NORMAL BREATHING PATTERN - Cardiovascular Exam Cardiovascular Exam: +S1, +S2 - GI/Abdominal Exam GI & Abdominal Exam: Soft. absent: Distended, Firm, Guarding, Hernia, Rebound, Rigid, Tenderness Additional comments: Colostomy intact, functioning, liquid stool in ostomy bag Lower inferior pole of laparotomy scar actively having purulent drainage - Neurological Exam Neurological exam: Alert - Psychiatric Exam Psychiatric exam: Normal Mood - Skin Additional comments: purulent drainage from inferior pole of laparotomy incision Results - Vital Signs Recent Vital Signs: Last Vital Signs Temp 98.9 F 04/06/18 22:21 Pulse 106 H 04/06/18 22:21 Resp 21 04/06/18 22:21 BP 110/69 04/06/18 22:21 Pulse Ox 99 04/06/18 22:21 - Labs Result Diagrams: 04/07/18 06:00 04/07/18 06:00 Labs: Laboratory Results - last 24 hr 04/06/18 04/06/18 04/06/18 20:23 20:46 20:46 WBC 11.6 H RBC 4.30 Hgb 12.5 D Hct 39.2 MCV 91.0 MCH 29.0 MCHC 31.8 L RDW 20.3 H Plt Count 250 D MPV 8.3 Neut % (Auto) 65.9 Lymph % (Auto) 26.4 Frio % (Auto) 7.2 Eos % (Auto) 0.2 Baso % (Auto) 0.3 Neut # (Auto) 7.6 H Lymph # (Auto) 3.1 Frio # (Auto) 0.8 Eos # (Auto) 0.0 Baso # (Auto) 0.0 pO2 VBG pH VBG pCO2 VBG HCO3 VBG Total CO2 VBG O2 Sat (Calc) VBG Base Excess VBG Potassium Glucose Lactate FiO2 Sodium 133 Potassium 4.0 Chloride 100 Carbon Dioxide 21 L Anion Gap 16 BUN 11 Creatinine 0.5 L Est GFR ( Amer) > 60 Est GFR (Non-Af Amer) > 60 POC Glucose (mg/dL) 165 H Random Glucose 161 H Calcium 7.6 L Total Bilirubin 0.5 AST 37 H D ALT 31 Alkaline Phosphatase 133 H D Total Protein 5.7 L Albumin 2.2 L Globulin 3.5 Albumin/Globulin Ratio 0.6 L Venous Blood Potassium 04/06/18 20:50 WBC RBC Hgb Hct MCV MCH MCHC RDW Plt Count MPV Neut % (Auto) Lymph % (Auto) Frio % (Auto) Eos % (Auto) Baso % (Auto) Neut # (Auto) Lymph # (Auto) Frio # (Auto) Eos # (Auto) Baso # (Auto) pO2 49 VBG pH 7.44 H VBG pCO2 39 L VBG HCO3 26.4 VBG Total CO2 27.7 VBG O2 Sat (Calc) 87.3 H VBG Base Excess 2.3 H VBG Potassium 3.9 Glucose 170 H Lactate 1.3 FiO2 21.0 Sodium 131.0 L Potassium Chloride 101.0 Carbon Dioxide Anion Gap BUN Creatinine Est GFR ( Amer) Est GFR (Non-Af Amer) POC Glucose (mg/dL) Random Glucose Calcium Total Bilirubin AST ALT Alkaline Phosphatase Total Protein Albumin Globulin Albumin/Globulin Ratio Venous Blood Potassium 3.9 Assessment & Plan - Assessment and Plan (Free Text) Assessment: 87F with pelvic abscess likely 2/2 rectal stump leak and anterior abdominal wall abscess Plan: NPO IVF ABx Monitor vital signs Recommend IR evaluation for drainage of pelvic abscess Anterior abdominal wall may need a larger incision to allow purulent material to drain more efficiently F/u wound culture Analgesic prn Anti-emetic prn Further recs per Dr. Danyel NEWSOME PGY2
--- NOTE | 2018-04-06 22:48 | CT ---
EXAM: CT Abdomen and Pelvis With Intravenous Contrast CLINICAL HISTORY: 87 years old, female; Signs and symptoms; Other: Enterocutaneous fistula; Prior surgery; Surgery date: 1-6 months; Surgery type: S/P repair perforated viscus, february 2018 with colostomy. Gb removed TECHNIQUE: Axial computed tomography images of the abdomen and pelvis with intravenous contrast. All CT scans at this facility use one or more dose reduction techniques, viz.: automated exposure control; ma/kV adjustment per patient size (including targeted exams where dose is matched to indication; i.e. head); or iterative reconstruction technique. Coronal and sagittal reformatted images were created and reviewed. CONTRAST: 90 mL of [id number] administered intravenously. COMPARISON: CT - ABD PELVIS W/O PO OR IV CONT 2018-02-25 10:54 FINDINGS: Lung bases: See below. Pleural space: Small bilateral pleural effusions with overlying compressive atelectasis or infiltrate. Heart: There is a small pericardial fluid collection present. ABDOMEN: Liver: Unremarkable. No mass. Gallbladder and bile ducts: There has been a cholecystectomy. There is a mild, expected degree of intrahepatic and common bile duct dilation. Pancreas: Unremarkable. No mass. No ductal dilation. Spleen: 11 mm low density lesion in the spleen, probably a cyst. Adrenals: Unremarkable. No mass. Kidneys and ureters: There are left renal cysts. No hydronephrosis. Stomach and bowel: There is a LEFT lower quadrant colostomy. Moderate diverticulosis is present in the descending colon. The large bowel is decompressed and appears thickwalled likely secondary to nondistention. PELVIS: Appendix: Not visualized. Bladder: Unremarkable. No mass. Reproductive: Hysterectomy. ABDOMEN and PELVIS: Intraperitoneal space: There is a rim-enhancing fluid collection with gas in the pelvis measuring 7.4 x 9.7 x 7.1 cm consistent with an abscess. The fluid collection is closely associated with the suture material at the rectal stump raising suspicion for a leak. There are thickwalled distal small bowel loops draped along the anterior margin of the fluid collection likely reactive inflammatory changes. Bones/joints: Degenerative changes. No acute fracture. No dislocation. Soft tissues: The midline abdominal wall incision. There is stranding of the subcutaneous fat in the abdominal and pelvic wall with minimal fluid most likely secondary to postsurgical changes. No abscess collection. Vasculature: The vasculature demonstrates diffuse severe atherosclerotic calcification. No abdominal aortic aneurysm. IMPRESSION: Large pelvic abscess collection closely associated with the rectal stump raising suspicion for leak. LEFT lower quadrant colostomy with postsurgical changes in the abdominal and pelvic wall. Small amount of fluid in the abdominal and pelvic wall with inflammatory stranding. No significant drainable fluid collection or abscess. Diverticulosis. Bilateral pleural effusions with overlying compressive atelectasis or infiltrate. Cholecystectomy. LEFT renal cysts. No followup necessary. Probable splenic cyst. No followup necessary. Small pericardial effusion. THIS REPORT CONTAINS FINDINGS THAT MAY BE CRITICAL TO PATIENT CARE. The findings were verbally communicaated via telephone conference with Kb Cárdenas at 10:36 PM EDT on 04/06/2018. The findings were acknowledged and understood.
[2018-04-07] MEDS: Piperacillin/Tazobact 4.5 GM in Sodium Chloride 0.9% 100 ML IVPB SCH ×3 (01:04→16:33)
[2018-04-07 02:59] VITALS: BMI 28.2
[2018-04-07] MEDS: Insulin Lispro (humaLOG) 100 Units/ml Inj SC SCH ×4 (04:30→22:31)
[2018-04-07 06:21] LABS: HEMOGLOBIN 11.4 g/dL (12.0-16.0); MEAN CELL VOLUME 89.7 fl (81.0-99.0); MEAN CORPUSCULAR HEMOGLOBIN 29.6 pg (27.0-31.0); RBC 3.85 Mil/uL (3.80-5.20); RED CELL DISTRIBUTION WIDTH 20.6 % (11.5-14.5); WHITE BLOOD COUNT 10.3 K/uL (4.8-10.8)
[2018-04-07 06:44] LABS: BLOOD UREA NITROGEN 8 mg/dl (7-17); CALCIUM 7.2 mg/dL (8.4-10.2); GFR AFRICAN-AMERICAN > 60; GFR NON-AFRICAN AMERICAN > 60
--- NOTE | 2018-04-07 07:39 | CP.CCUPN ---
CCU Subjective - Physician Review Subjective (Free Text): 04/07/18 The patient was Seen/interviewed and examined by me at the bedside during ICU round, Medical records reviewed and Management issues were discussed and formulated with the house staff. Events reviewed Mrs Cook is 87 Years old Female with PMHx of HTN, Hypercholesterolemia, Diabetes (type II), Hypothyroidism, Arthritis, Atrial Fibrillation, Bronchitis, CAD (Questionable), CHF, Depression, Diverticulitis, COPD/Asthma and Sleep Apnea Who was transferred from rehab for evaluation of having abd pain but no vomiting or diarrhea, she was noted to have prulent drainage from surgical wound x 2 days. 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 No fever/chills. Admitted to the ICU for severe sepsis sec to pelvic abscess, started on IV Vanco and Zosyn Scheduled for CT guided pelvic abscess drainage by IR Pt JACINTOO x3. Alert, follows some commands Denies any chest pain, SOB or Palpitations CCU Objective - Vital Signs / Intake & Output Vital Signs (Last 4 hours): Vital Signs Temp Pulse Resp BP Pulse Ox 04/07/18 06:00 91 H 16 138/69 99 04/07/18 04:00 98.7 F 95 H 18 116/56 L 96 Intake and Output (Last 8hrs): Intake & Output 04/06/18 04/07/18 04/07/18 22:59 06:59 14:59 Intake Total 525 Balance 525 Weight 170 lb 169 lb 12.8 oz Intake: IV 525 Other: # Voids Urine, Voided 0 - Physical Exam Physical Exam Limitations: Positive for: Clinical Condition Head: Positive for: Atraumatic, Normocephalic Pupils: Positive for: PERRL. Negative for: Sluggish, Non-Reactive Extroacular Muscles: Positive for: EOMI Conjunctiva: Positive for: Normal. Negative for: Injected, Icteric Mouth: Positive for: Moist Mucous Membranes Pharnyx: Positive for: Normal. Negative for: ERYTHEMA, EXUDATE Neck: Positive for: Normal Range of Motion, Trachea Midline. Negative for: Meningeal Signs, MIDLINE TENDERNESS, Paraspinal Tenderness, JVD, Lymphadenopathy , Bruit, Other Respiratory/Chest: Positive for: Decreased Breath Sounds. Negative for: Respiratory Distress, Accessory Muscle Use, Rales, Rhonchi Cardiovascular: Positive for: Irregular Rhythm, Peripheal Pulses Present. Negative for: Tachycardic, Bradycardic Abdomen: Positive for: Tenderness, Distention, Normal Bowel Sounds. Negative for: Peritoneal Signs Neurological: Positive for: Motor Func Grossly Intact, Normal Sensory Function Psychiatric: Positive for: Alert, Oriented x 3, Normal Insight - Medications Active Medications: Active Medications Generic Name Dose Route Start Last Admin Trade Name Freq PRN Reason Stop Dose Admin Acetaminophen 650 mg 04/06/18 21:21 Tylenol 325mg Tab PO Q6H PRN Pain, Mild (1-3) Acetaminophen 650 mg 04/06/18 21:21 Tylenol 325mg Tab PO Q6H PRN Fever >100.4 F Albuterol/Ipratropium 3 ml 04/07/18 08:00 Duoneb 3 Mg/0.5 Mg (3 Ml) Ud INH RQID [facility] Home Med 1 drop 04/07/18 09:00 Olopatadine Hcl [Pazeo] EACHEYE DAILY [facility] Vancomycin HCl 1 gm/ Sodium 250 mls @ 166.667 mls/hr 04/07/18 09:00 Chloride IVPB Q12 [facility] Protocol Piperacillin Sod/Tazobactam 100 mls @ 100 mls/hr 04/07/18 01:00 04/07/18 01: 04 Sod 4.5 gm/ Sodium Chloride IVPB 100 mls/hr Q8 [facility] Administration Protocol Insulin Human Lispro 0 units 04/06/18 21:30 04/07/18 04:30 Humalog SC Not Given Q6H [facility] Protocol Levothyroxine Sodium 175 mcg 04/07/18 09:00 Synthroid PO DAILY@0630 [facility] Morphine Sulfate 2 mg 04/06/18 21:21 Morphine IVP Q4H PRN Pain, severe (8-10) Pantoprazole Sodium 40 mg 04/07/18 09:00 Protonix Ec Tab PO DAILY [facility] Fluticasone/Salmeterol 1 puff 04/07/18 09:00 Advair Diskus 250/50 IH Q12 [facility] Tramadol HCl 50 mg 04/06/18 21:19 Ultram PO TID PRN Pain, moderate (4-7) - Patient Studies Lab Studies: Lab Studies 04/07/18 04/07/18 04/07/18 Range/Units 06:00 06:00 06:00 WBC 10.3 (4.8-10.8) K/uL RBC 3.85 (3.80-5.20) Mil/uL Hgb 11.4 L (12.0-16.0) g/dL Hct 34.5 (34.0-47.0) % MCV 89.7 (81.0-99.0) fl MCH 29.6 (27.0-31.0) pg MCHC 33.0 (33.0-37.0) g/dL RDW 20.6 H (11.5-14.5) % Plt Count 238 (130-400) K/uL MPV (7.2-11.7) fl Neut % (Auto) (50.0-75.0) % Lymph % (Auto) (20.0-40.0) % Taylor % (Auto) (0.0-10.0) % Eos % (Auto) (0.0-4.0) % Baso % (Auto) (0.0-2.0) % Neut # (Auto) (1.8-7.0) K/uL Lymph # (Auto) (1.0-4.3) K/uL Taylor # (Auto) (0.0-0.8) K/uL Eos # (Auto) (0.0-0.7) K/uL Baso # (Auto) (0.0-0.2) K/uL pO2 (30-55) mm/Hg VBG pH (7.32-7.43) VBG pCO2 (40-60) mmHg VBG HCO3 mmol/L VBG Total CO2 (22-28) mmol/L VBG O2 Sat (Calc) (40-65) % VBG Base Excess (0.0-2.0) mmol/L VBG Potassium (3.6-5.2) mmol/L Glucose (65-105) mg/dL Lactate (0.7-2.1) mmol/L FiO2 % Sodium 133 (132-148) mmol/l Potassium 3.7 (3.6-5.0) MMOL/L Chloride 103 (98-107) mmol/L Carbon Dioxide 25 (22-30) mmol/L Anion Gap 9 L (10-20) BUN 8 (7-17) mg/dl Creatinine 0.4 L (0.7-1.2) mg/dl Est GFR ( Amer) > 60 Est GFR (Non-Af Amer) > 60 POC Glucose (mg/dL) (65-110) mg/dL Random Glucose 88 (65-105) mg/dL Lactic Acid 1.0 (0.7-2.1) MMOL/L Calcium 7.2 L (8.4-10.2) mg/dL Total Bilirubin (0.2-1.3) mg/dl AST (14-36) U/L ALT (9-52) U/L Alkaline Phosphatase (38-126) U/L Total Protein (6.3-8.2) G/DL Albumin (3.5-5.0) g/dL Globulin (2.2-3.9) gm/dL Albumin/Globulin Ratio (1.0-2.1) Venous Blood Potassium (3.6-5.2) mmol/L 04/06/18 04/06/18 04/06/18 Range/Units 20:50 20:46 20:46 WBC 11.6 H (4.8-10.8) K/uL RBC 4.30 (3.80-5.20) Mil/uL Hgb 12.5 D (12.0-16.0) g/dL Hct 39.2 (34.0-47.0) % MCV 91.0 (81.0-99.0) fl MCH 29.0 (27.0-31.0) pg MCHC 31.8 L (33.0-37.0) g/dL RDW 20.3 H (11.5-14.5) % Plt Count 250 D (130-400) K/uL MPV 8.3 (7.2-11.7) fl Neut % (Auto) 65.9 (50.0-75.0) % Lymph % (Auto) 26.4 (20.0-40.0) % Taylor % (Auto) 7.2 (0.0-10.0) % Eos % (Auto) 0.2 (0.0-4.0) % Baso % (Auto) 0.3 (0.0-2.0) % Neut # (Auto) 7.6 H (1.8-7.0) K/uL Lymph # (Auto) 3.1 (1.0-4.3) K/uL Taylor # (Auto) 0.8 (0.0-0.8) K/uL Eos # (Auto) 0.0 (0.0-0.7) K/uL Baso # (Auto) 0.0 (0.0-0.2) K/uL pO2 49 (30-55) mm/Hg VBG pH 7.44 H (7.32-7.43) VBG pCO2 39 L (40-60) mmHg VBG HCO3 26.4 mmol/L VBG Total CO2 27.7 (22-28) mmol/L VBG O2 Sat (Calc) 87.3 H (40-65) % VBG Base Excess 2.3 H (0.0-2.0) mmol/L VBG Potassium 3.9 (3.6-5.2) mmol/L Glucose 170 H (65-105) mg/dL Lactate 1.3 (0.7-2.1) mmol/L FiO2 21.0 % Sodium 131.0 L 133 (132-148) mmol/l Potassium 4.0 (3.6-5.0) MMOL/L Chloride 101.0 100 (98-107) mmol/L Carbon Dioxide 21 L (22-30) mmol/L Anion Gap 16 (10-20) BUN 11 (7-17) mg/dl Creatinine 0.5 L (0.7-1.2) mg/dl Est GFR ( Amer) > 60 Est GFR (Non-Af Amer) > 60 POC Glucose (mg/dL) (65-110) mg/dL Random Glucose 161 H (65-105) mg/dL Lactic Acid (0.7-2.1) MMOL/L Calcium 7.6 L (8.4-10.2) mg/dL Total Bilirubin 0.5 (0.2-1.3) mg/dl AST 37 H D (14-36) U/L ALT 31 (9-52) U/L Alkaline Phosphatase 133 H D (38-126) U/L Total Protein 5.7 L (6.3-8.2) G/DL Albumin 2.2 L (3.5-5.0) g/dL Globulin 3.5 (2.2-3.9) gm/dL Albumin/Globulin Ratio 0.6 L (1.0-2.1) Venous Blood Potassium 3.9 (3.6-5.2) mmol/L 04/06/18 Range/Units 20:23 WBC (4.8-10.8) K/uL RBC (3.80-5.20) Mil/uL Hgb (12.0-16.0) g/dL Hct (34.0-47.0) % MCV (81.0-99.0) fl MCH (27.0-31.0) pg MCHC (33.0-37.0) g/dL RDW (11.5-14.5) % Plt Count (130-400) K/uL MPV (7.2-11.7) fl Neut % (Auto) (50.0-75.0) % Lymph % (Auto) (20.0-40.0) % Taylor % (Auto) (0.0-10.0) % Eos % (Auto) (0.0-4.0) % Baso % (Auto) (0.0-2.0) % Neut # (Auto) (1.8-7.0) K/uL Lymph # (Auto) (1.0-4.3) K/uL Taylor # (Auto) (0.0-0.8) K/uL Eos # (Auto) (0.0-0.7) K/uL Baso # (Auto) (0.0-0.2) K/uL pO2 (30-55) mm/Hg VBG pH (7.32-7.43) VBG pCO2 (40-60) mmHg VBG HCO3 mmol/L VBG Total CO2 (22-28) mmol/L VBG O2 Sat (Calc) (40-65) % VBG Base Excess (0.0-2.0) mmol/L VBG Potassium (3.6-5.2) mmol/L Glucose (65-105) mg/dL Lactate (0.7-2.1) mmol/L FiO2 % Sodium (132-148) mmol/l Potassium (3.6-5.0) MMOL/L Chloride (98-107) mmol/L Carbon Dioxide (22-30) mmol/L Anion Gap (10-20) BUN (7-17) mg/dl Creatinine (0.7-1.2) mg/dl Est GFR ( Amer) Est GFR (Non-Af Amer) POC Glucose (mg/dL) 165 H (65-110) mg/dL Random Glucose (65-105) mg/dL Lactic Acid (0.7-2.1) MMOL/L Calcium (8.4-10.2) mg/dL Total Bilirubin (0.2-1.3) mg/dl AST (14-36) U/L ALT (9-52) U/L Alkaline Phosphatase (38-126) U/L Total Protein (6.3-8.2) G/DL Albumin (3.5-5.0) g/dL Globulin (2.2-3.9) gm/dL Albumin/Globulin Ratio (1.0-2.1) Venous Blood Potassium (3.6-5.2) mmol/L Laboratory Results - last 24 hr 04/06/18 04/06/18 04/06/18 20:23 20:46 20:46 WBC 11.6 H RBC 4.30 Hgb 12.5 D Hct 39.2 MCV 91.0 MCH 29.0 MCHC 31.8 L RDW 20.3 H Plt Count 250 D MPV 8.3 Neut % (Auto) 65.9 Lymph % (Auto) 26.4 Taylor % (Auto) 7.2 Eos % (Auto) 0.2 Baso % (Auto) 0.3 Neut # (Auto) 7.6 H Lymph # (Auto) 3.1 Taylor # (Auto) 0.8 Eos # (Auto) 0.0 Baso # (Auto) 0.0 pO2 VBG pH VBG pCO2 VBG HCO3 VBG Total CO2 VBG O2 Sat (Calc) VBG Base Excess VBG Potassium Glucose Lactate FiO2 Sodium 133 Potassium 4.0 Chloride 100 Carbon Dioxide 21 L Anion Gap 16 BUN 11 Creatinine 0.5 L Est GFR ( Amer) > 60 Est GFR (Non-Af Amer) > 60 POC Glucose (mg/dL) 165 H Random Glucose 161 H Lactic Acid Calcium 7.6 L Total Bilirubin 0.5 AST 37 H D ALT 31 Alkaline Phosphatase 133 H D Total Protein 5.7 L Albumin 2.2 L Globulin 3.5 Albumin/Globulin Ratio 0.6 L Venous Blood Potassium 04/06/18 04/07/18 04/07/18 20:50 06:00 06:00 WBC 10.3 RBC 3.85 Hgb 11.4 L Hct 34.5 MCV 89.7 MCH 29.6 MCHC 33.0 RDW 20.6 H Plt Count 238 MPV Neut % (Auto) Lymph % (Auto) Taylor % (Auto) Eos % (Auto) Baso % (Auto) Neut # (Auto) Lymph # (Auto) Taylor # (Auto) Eos # (Auto) Baso # (Auto) pO2 49 VBG pH 7.44 H VBG pCO2 39 L VBG HCO3 26.4 VBG Total CO2 27.7 VBG O2 Sat (Calc) 87.3 H VBG Base Excess 2.3 H VBG Potassium 3.9 Glucose 170 H Lactate 1.3 FiO2 21.0 Sodium 131.0 L 133 Potassium 3.7 Chloride 101.0 103 Carbon Dioxide 25 Anion Gap 9 L BUN 8 Creatinine 0.4 L Est GFR ( Amer) > 60 Est GFR (Non-Af Amer) > 60 POC Glucose (mg/dL) Random Glucose 88 Lactic Acid Calcium 7.2 L Total Bilirubin AST ALT Alkaline Phosphatase Total Protein Albumin Globulin Albumin/Globulin Ratio Venous Blood Potassium 3.9 04/07/18 06:00 WBC RBC Hgb Hct MCV MCH MCHC RDW Plt Count MPV Neut % (Auto) Lymph % (Auto) Taylor % (Auto) Eos % (Auto) Baso % (Auto) Neut # (Auto) Lymph # (Auto) Taylor # (Auto) Eos # (Auto) Baso # (Auto) pO2 VBG pH VBG pCO2 VBG HCO3 VBG Total CO2 VBG O2 Sat (Calc) VBG Base Excess VBG Potassium Glucose Lactate FiO2 Sodium Potassium Chloride Carbon Dioxide Anion Gap BUN Creatinine Est GFR ( Amer) Est GFR (Non-Af Amer) POC Glucose (mg/dL) Random Glucose Lactic Acid 1.0 Calcium Total Bilirubin AST ALT Alkaline Phosphatase Total Protein Albumin Globulin Albumin/Globulin Ratio Venous Blood Potassium EKG/Cardiology Studies: Cardiology / EKG Studies 04/06/18 20:35 ELECTROCARDIOGRAM Stat Comment: Mode Of Transportation: Reason For Exam: sepsis Fingerstick Blood Sugar Results: 84 Review of Systems - Cardiovascular Cardiovascular: absent: As Per HPI, Acrocyanosis, Chest Pain, Chest Pain at Rest , Chest Pain with Activity, Claudication, Diaphoresis, Dyspnea, Dyspnea on Exertion, Edema, Irregular Heart Rhythm, Pain Radiating to Arm/Neck/Jaw, Leg Edema, Leg Ulcers, Lightheadedness, Orthopnea, Palpitations, Paroxysmal Nocturnal Dyspnea, Pedal Edema, Radiating Pain, Rapid Heart Rate, Slow Heart Rate, Syncope, Other, UNREMARKABLE - Respiratory Respiratory: absent: As Per HPI, Cough, Dyspnea, Hemoptysis, Dyspnea on Exertion , Wheezing, Snoring, Stridor, Pain on Inspiration, Chest Congestion, Excessive Mucous Production, Change in Mucous Color, Pain with Coughing, Other, UNREMARKABLE - Gastrointestinal Gastrointestinal: Abdominal Pain, Nausea. absent: Vomiting Critical Care Progress Note - Extremities/Vascular Does the Patient have a Central Venous Catheter?: No Does the Patient need a Central Venous Catheter?: No Does the Patient have a Grijalva Catheter?: No Does the Patient need a Grijalva Catheter?: No - Nutrition Nutrition: Nutrition Category Date Time Status NPO Diet [DIET] Diets 04/06/18 Breakfast Active Assessment/Plan (1) Abdominal wall abscess at site of surgical wound Current Visit: Yes Status: Acute Priority: High Comment: Admitted to the ICU for severe sepsis sec to pelvic abscess, started on IV Vanco and Zosyn Scheduled for CT guided pelvic abscess drainage by IR (2) Sepsis Current Visit: Yes Status: Acute Priority: High Comment: Continue Antibiotics IV hydraions Pain control ID drainage (3) CHF (congestive heart failure) Current Visit: No Status: Acute (4) Paroxysmal atrial fibrillation Current Visit: No Status: Acute (5) Asthma Current Visit: No Status: Chronic Priority: High Comment: Continue Fluticasone/Salmeterol (Advair Diskus 250/50) 1 puff IH Q12 Continue Singulair Continue nebulizer treatment (6) COPD (chronic obstructive pulmonary disease) Current Visit: No Status: Chronic Comment: Continue Fluticasone/Salmeterol (Advair Diskus 250/50) 1 puff IH Q12 Continue Singulair Continue nebulizer treatment
[2018-04-07] MEDS: Albuterol-Ipratrop 3 mg / 0.5 (3 ml) UD INH SCH ×4 (07:42→19:18)
--- NOTE | 2018-04-07 08:24 | CP.PCM.PN ---
Subjective - Date & Time of Evaluation Date of Evaluation: 04/07/18 Time of Evaluation: 08:21 - Subjective Subjective: General Surgery Progress Note 87F seen at bedside for pelvic abscess likely 2/2 rectal stump leak and anterior abdominal wall abscess. Patient AAO x 3 at time of visit. States that she is still having abdominal pain. Denies any other complaints or acute overnight events. Denies N/V/F/C/CP/SOB. Colostomy bag noted to be in place. Objective - Vital Signs/Intake and Output Vital Signs (last 24 hours): Temp Pulse Resp BP Pulse Ox 98.7 F 91 H 16 138/69 99 04/07/18 04:00 04/07/18 07:44 04/07/18 06:00 04/07/18 06:00 04/07/18 06:00 Intake and Output: 04/07/18 04/07/18 06:59 18:59 Intake Total 525 Balance 525 - Medications Medications: Current Medications Acetaminophen (Tylenol 325mg Tab) 650 mg PO Q6H PRN PRN Reason: Pain, Mild (1-3) Acetaminophen (Tylenol 325mg Tab) 650 mg PO Q6H PRN PRN Reason: Fever >100.4 F Albuterol/Ipratropium (Duoneb 3 Mg/0.5 Mg (3 Ml) Ud) 3 ml INH RQID [facility] Last Admin: 04/07/18 07:42 Dose: 3 ml Home Med (Olopatadine Hcl [Pazeo]) 1 drop EACHEYE DAILY [facility] Vancomycin HCl 1 gm/ Sodium (Chloride) 250 mls @ 166.667 mls/hr IVPB Q12 [facility] PRN Reason: Protocol Piperacillin Sod/Tazobactam (Sod 4.5 gm/ Sodium Chloride) 100 mls @ 100 mls/hr IVPB Q8 [facility] PRN Reason: Protocol Last Admin: 04/07/18 01:04 Dose: 100 mls/hr Insulin Human Lispro (Humalog) 0 units SC Q6H [facility] PRN Reason: Protocol Last Admin: 04/07/18 04:30 Dose: Not Given Levothyroxine Sodium (Synthroid) 175 mcg PO DAILY@0630 [facility] Morphine Sulfate (Morphine) 2 mg IVP Q4H PRN PRN Reason: Pain, severe (8-10) Pantoprazole Sodium (Protonix Ec Tab) 40 mg PO DAILY [facility] Fluticasone/Salmeterol (Advair Diskus 250/50) 1 puff IH Q12 [facility] Tramadol HCl (Ultram) 50 mg PO TID PRN PRN Reason: Pain, moderate (4-7) - Labs Labs: 04/07/18 06:00 04/07/18 06:00 - Constitutional Appears: Well, Non-toxic, No Acute Distress - Head Exam Head Exam: ATRAUMATIC, NORMOCEPHALIC - Respiratory Exam Respiratory Exam: NORMAL BREATHING PATTERN. absent: Respiratory Distress - GI/Abdominal Exam GI & Abdominal Exam: Soft. absent: Distended, Firm, Guarding, Rigid, Tenderness , Hernia, Rebound Additional comments: Colostomy intact, functioning, liquid stool in ostomy bag Lower inferior pole of laparotomy scar actively having purulent drainage - Neurological Exam Neurological Exam: Alert, Awake, Oriented x3 - Psychiatric Exam Psychiatric exam: Normal Affect, Normal Mood Assessment and Plan - Assessment and Plan (Free Text) Assessment: 87F with pelvic abscess likely 2/2 rectal stump leak and anterior abdominal wall abscess Plan: Afebrile, absent leukocytosis CT abdomen: Large pelvic abscess collection closely associated with the rectal stump raising suspicion for leak Pain meds Abx NPO Pt for IR eval for drainage today Will f/u results
--- NOTE | 2018-04-07 08:24 | RAD ---
HISTORY: Sepsis COMPARISON: 03/02/2018. FINDINGS: LUNGS: The lungs are well inflated and clear. PLEURA: No significant pleural effusion identified, no pneumothorax apparent. CARDIOVASCULAR: The heart remains enlarged with OSSEOUS STRUCTURES: No significant abnormalities. VISUALIZED UPPER ABDOMEN: Normal. OTHER FINDINGS: None. IMPRESSION: No active pulmonary disease.
[2018-04-07] MEDS: Levothyroxine 175 MCG TAB PO SCH (08:28)
[2018-04-07] MEDS: Fluticasone-Salmeterol 250-50mcg Diskus IH SCH ×2 (08:28→22:17)
[2018-04-07] MEDS: Pantoprazole 40 mg EC Tab PO SCH (08:28)
--- NOTE | 2018-04-07 08:39 | CARD ---
APPROVED REPORT EKG Measurement Heart [id number] <Conclusion> Atrial fibrillation with rapid ventricular response Incomplete right bundle branch block Anterior infarct, age undetermined T wave abnormality, consider lateral ischemia Abnormal ECG
--- NOTE | 2018-04-07 09:01 | CP.PCM.PN ---
Subjective - Date & Time of Evaluation Date of Evaluation: 04/07/18 Time of Evaluation: 08:30 - Subjective Subjective: Pt is afebrile however complains of chills Very anxious about her condition has mild lower abdominal pain Surgical wound draining some purulent material No stool in Colostomy bag denies CP no SOB at present Objective - Vital Signs/Intake and Output Vital Signs (last 24 hours): Temp Pulse Resp BP Pulse Ox 97.8 F 99 H 13 94/47 L 98 04/07/18 08:00 04/07/18 08:00 04/07/18 08:00 04/07/18 08:00 04/07/18 08:00 Intake and Output: 04/07/18 04/07/18 06:59 18:59 Intake Total 525 Balance 525 - Medications Medications: Current Medications Acetaminophen (Tylenol 325mg Tab) 650 mg PO Q6H PRN PRN Reason: Pain, Mild (1-3) Acetaminophen (Tylenol 325mg Tab) 650 mg PO Q6H PRN PRN Reason: Fever >100.4 F Albuterol/Ipratropium (Duoneb 3 Mg/0.5 Mg (3 Ml) Ud) 3 ml INH RQID [facility] Last Admin: 04/07/18 07:42 Dose: 3 ml Home Med (Olopatadine Hcl [Pazeo]) 1 drop EACHEYE DAILY [facility] Vancomycin HCl 1 gm/ Sodium (Chloride) 250 mls @ 166.667 mls/hr IVPB Q12 [facility] PRN Reason: Protocol Piperacillin Sod/Tazobactam (Sod 4.5 gm/ Sodium Chloride) 100 mls @ 100 mls/hr IVPB Q8 [facility] PRN Reason: Protocol Last Admin: 04/07/18 08:30 Dose: 100 mls/hr Insulin Human Lispro (Humalog) 0 units SC Q6H [facility] PRN Reason: Protocol Last Admin: 04/07/18 04:30 Dose: Not Given Levothyroxine Sodium (Synthroid) 175 mcg PO DAILY@0630 [facility] Last Admin: 04/07/18 08:28 Dose: 175 mcg Morphine Sulfate (Morphine) 2 mg IVP Q4H PRN PRN Reason: Pain, severe (8-10) Pantoprazole Sodium (Protonix Ec Tab) 40 mg PO DAILY [facility] Last Admin: 04/07/18 08:28 Dose: 40 mg Fluticasone/Salmeterol (Advair Diskus 250/50) 1 puff IH Q12 [facility] Last Admin: 04/07/18 08:28 Dose: 1 puff Tramadol HCl (Ultram) 50 mg PO TID PRN PRN Reason: Pain, moderate (4-7) - Labs Labs: 04/07/18 06:00 04/07/18 06:00 - Constitutional Appears: Toxic, Chronically Ill - Head Exam Head Exam: ATRAUMATIC, NORMAL INSPECTION, NORMOCEPHALIC - Eye Exam Eye Exam: EOMI, Normal appearance Pupil Exam: NORMAL ACCOMODATION - ENT Exam ENT Exam: Mucous Membranes Dry, Normal External Ear Exam - Neck Exam Neck Exam: Full ROM. absent: Meningismus - Respiratory Exam Respiratory Exam: Rales, Rhonchi, NORMAL BREATHING PATTERN. absent: Wheezes, Respiratory Distress - Cardiovascular Exam Cardiovascular Exam: Tachycardia, Irregular Rhythm, +S1, +S2 - GI/Abdominal Exam GI & Abdominal Exam: Soft, Tenderness (mild lower abd tenderness), Normal Bowel Sounds Additional comments: Surgical Wound with 2 small area of dehiscence draining purulent material Left Colostomy - Extremities Exam Extremities Exam: Full ROM, Normal Capillary Refill. absent: Calf Tenderness, Pedal Edema - Back Exam Back Exam: Full ROM. absent: CVA tenderness (L), CVA tenderness (R) - Neurological Exam Neurological Exam: Alert, Awake, CN II-XII Intact, Oriented x3 - Psychiatric Exam Psychiatric exam: Anxious - Skin Skin Exam: Dry, Normal Color, Warm Assessment and Plan - Assessment and Plan (Free Text) Assessment: 87 y/o lady , well known to the Hospitalist team from previous admission last month. She had Colon Perforation after Colonoscopy and underwent Sigmoid Resection and Colostomy. She was d/c to a [facility] on 03/05. She came back because of abdominal pain, chills and purulent drainage from her surgical wound. CT of the abdomen/Pelvis: Large pelvic abscess collection closely associated with the rectal stump raising suspicion for leak. LEFT lower quadrant colostomy with postsurgical changes in the abdominal and pelvic wall. Small amount of fluid in the abdominal and pelvic wall with inflammatory stranding. No significant drainable fluid collection or abscess. Diverticulosis. Bilateral pleural effusions with overlying compressive atelectasis or infiltrate. Cholecystectomy. LEFT renal cysts. No followup necessary. Probable splenic cyst. No followup necessary. Small pericardial effusion (1) Sepsis sec to Pelvic Abscess and Abdominal Wound Abscess -cont Vanco and Zosyn IV - ID consulted- Dr Garcia ( ID who saw pt on previous admission) - recommended to add IV Diflucan -Wound c/s - Blood c/s -Surgery consulted - rec IR Drainage of abscess - Pt underwebt IR drainage of abscess - 100 ml of brownish material obtained- sent for Micro -Pain mgmt (2) Abdominal wall abscess at site of surgical wound Status: Acute 2 small areas of dehiscence noted draining purulent material (3) Diabetes mellitus, type II Status: Chronic Priority: High accucheck (4) CHF (congestive heart failure), chronic diastolic hold off on Losaratan and Lasix for now as pt has low BP (5) Atrial fibrillation, chronic with RVR Status: Chronic off anticoag due to her GI bleed restart low dose Cardizem bec of RVR Cardio consult - Dr Arriaga (6) Asthma ( mild intermittent ) chronic COPD (chronic obstructive pulmonary disease), chronic Atelectasis/Pleural Effusion seen on CT Pulm consult Duoneb treatments (7) Hypertension Status: Chronic Priority: Medium restart Cardizem for now , low normal BP, hold Lasix (8) Hypothyroidism Status: Chronic Priority: Medium cont Levothyroxine (9) DVT prophylaxis Status: Acute Lovenox -
--- NOTE | 2018-04-07 09:12 | CP.PCM.CON ---
History of Present Illness - History of Present Illness History of Present Illness: Seen on consultation in the ICU: This 87 year old female is well known to me from prior hospitalizations as well as the outpatient setting. She has been admitted now because of purulent drainage noter in the ZURDO coming from the surgical site. She did have repair of a colon perforation about 1 month ago and has a functioning colostomy in the LLQ. She claims to have been feeling poorly in general with a loss of appetite recently. The ER notes state that there had been purulent drainage for the 2 days prior to presentation coming from the surgical incision site. She is unaware of fever and does not complain of nausea or vomiting, but does have abdominal pain. CT abdomen does show a fluid/air collection in the pelvis closely associated with the rectal stump. Also noted are small bilateral pleural effusions with what seems to be passive atelectasis in the lung bases, more left than right. Review of Systems - Constitutional Constitutional: Lethargy, Weight Loss - Gastrointestinal Gastrointestinal: Abdominal Pain, Other (loss of appetite) - Psychiatric Psychiatric: Depression Past Patient History - Infectious Disease Hx of Infectious Diseases: None - Past Medical History & Family History Past Medical History?: Yes Pertinent Family History: thyroid disease, diabetes,asthma, OA, hyperlipidemia - Past Social History Smoking Status: Former Smoker (smoked casually many years ago, less than 100 cigarettes in her lifetime) Chewing Tobacco Use: No Cigar Use: No Alcohol: None Drugs: Denies Home Situation {Lives}: Other ([facility]) - CARDIAC Hx Atrial Fibrillation: Yes Hx Hypercholesterolemia: Yes Hx Hypertension: Yes - PULMONARY Hx Asthma: Yes Hx Pneumonia: Yes Hx Sleep Apnea: Yes - NEUROLOGICAL Hx Neurological Disorder: No - HEENT Hx HEENT Problems: No - RENAL Hx Chronic Kidney Disease: No - ENDOCRINE/METABOLIC Hx Hypothyroidism: Yes - HEMATOLOGICAL/ONCOLOGICAL Hx Anemia: Yes - INTEGUMENTARY Hx Dermatological Problems: Yes - MUSCULOSKELETAL/RHEUMATOLOGICAL Hx Back Pain: Yes Hx Degenerative Joint Disease: Yes (knees) Hx Osteoarthritis: Yes - GASTROINTESTINAL Hx Diverticulitis: Yes Other/Comment: perforated viscus repaired last admission - GENITOURINARY/GYNECOLOGICAL Hx Genitourinary Disorders: No - PSYCHIATRIC Hx Depression: Yes - SURGICAL HISTORY Hx Cholecystectomy: Yes Hx Hysterectomy: Yes Other/Comment: lumbar laminectomy-remote, repair of colon perforation with colostomy - ANESTHESIA Hx Anesthesia: Yes Hx Anesthesia Reactions: No Hx Malignant Hyperthermia: No Meds Allergies/Adverse Reactions: Allergies Allergy/AdvReac Type Severity Reaction Status Date / Time No Known Allergies Allergy Verified 01/22/18 12:12 - Medications Medications: Current Medications Acetaminophen (Tylenol 325mg Tab) 650 mg PO Q6H PRN PRN Reason: Pain, Mild (1-3) Acetaminophen (Tylenol 325mg Tab) 650 mg PO Q6H PRN PRN Reason: Fever >100.4 F Albuterol/Ipratropium (Duoneb 3 Mg/0.5 Mg (3 Ml) Ud) 3 ml INH RQID [facility] Last Admin: 04/07/18 07:42 Dose: 3 ml Home Med (Olopatadine Hcl [Pazeo]) 1 drop EACHEYE DAILY [facility] Vancomycin HCl 1 gm/ Sodium (Chloride) 250 mls @ 166.667 mls/hr IVPB Q12 [facility] PRN Reason: Protocol Piperacillin Sod/Tazobactam (Sod 4.5 gm/ Sodium Chloride) 100 mls @ 100 mls/hr IVPB Q8 [facility] PRN Reason: Protocol Last Admin: 04/07/18 08:30 Dose: 100 mls/hr Insulin Human Lispro (Humalog) 0 units SC Q6H [facility] PRN Reason: Protocol Last Admin: 04/07/18 04:30 Dose: Not Given Levothyroxine Sodium (Synthroid) 175 mcg PO DAILY@0630 [facility] Last Admin: 04/07/18 08:28 Dose: 175 mcg Morphine Sulfate (Morphine) 2 mg IVP Q4H PRN PRN Reason: Pain, severe (8-10) Pantoprazole Sodium (Protonix Ec Tab) 40 mg PO DAILY [facility] Last Admin: 04/07/18 08:28 Dose: 40 mg Fluticasone/Salmeterol (Advair Diskus 250/50) 1 puff IH Q12 [facility] Last Admin: 04/07/18 08:28 Dose: 1 puff Tramadol HCl (Ultram) 50 mg PO TID PRN PRN Reason: Pain, moderate (4-7) Physical Exam - Additional Findings Additional findings: Well nourished, well developed, depressed facies, tearful. No jaundice, no pallor. Neck is supple, trachea midline. Old sutures from apparent prior right IJ catheter. Pharynx is pink and moist without exudate. Conjunctivae are pink and non-icteric. Nares are patent bilaterally w/o bleeding or exudate. No dullness on percussion of the anterior chest wall. No subcut emphysema. Breath sounds are well heard bilaterally with harsh bronchial character in the left base posteriorly. No audible wheezing. Scattered sonorous rhonchi bilaterally, dry rales in left lower lobe. Heart sounds well heard, irregular rhythm. Abdomen seems slightly distended, hypo bowel sounds, large dressing over suture line, functioning colostomy LLQ. Trace dependant edema of LE's, no cyanosis or calf tenderness, no ecchymosis. Results - Vital Signs Recent Vital Signs: Last Vital Signs Temp 97.8 F 04/07/18 08:00 Pulse 99 H 04/07/18 08:00 Resp 13 04/07/18 08:00 BP 94/47 L 04/07/18 08:00 Pulse Ox 98 04/07/18 08:00 - Labs Result Diagrams: 04/07/18 06:00 04/07/18 06:00 Labs: Laboratory Results - last 24 hr 04/06/18 04/06/18 04/06/18 20:23 20:46 20:46 WBC 11.6 H RBC 4.30 Hgb 12.5 D Hct 39.2 MCV 91.0 MCH 29.0 MCHC 31.8 L RDW 20.3 H Plt Count 250 D MPV 8.3 Neut % (Auto) 65.9 Lymph % (Auto) 26.4 Walker % (Auto) 7.2 Eos % (Auto) 0.2 Baso % (Auto) 0.3 Neut # (Auto) 7.6 H Lymph # (Auto) 3.1 Walker # (Auto) 0.8 Eos # (Auto) 0.0 Baso # (Auto) 0.0 pO2 VBG pH VBG pCO2 VBG HCO3 VBG Total CO2 VBG O2 Sat (Calc) VBG Base Excess VBG Potassium Glucose Lactate FiO2 Sodium 133 Potassium 4.0 Chloride 100 Carbon Dioxide 21 L Anion Gap 16 BUN 11 Creatinine 0.5 L Est GFR ( Amer) > 60 Est GFR (Non-Af Amer) > 60 POC Glucose (mg/dL) 165 H Random Glucose 161 H Lactic Acid Calcium 7.6 L Total Bilirubin 0.5 AST 37 H D ALT 31 Alkaline Phosphatase 133 H D Total Protein 5.7 L Albumin 2.2 L Globulin 3.5 Albumin/Globulin Ratio 0.6 L Venous Blood Potassium 04/06/18 04/07/18 04/07/18 20:50 06:00 06:00 WBC 10.3 RBC 3.85 Hgb 11.4 L Hct 34.5 MCV 89.7 MCH 29.6 MCHC 33.0 RDW 20.6 H Plt Count 238 MPV Neut % (Auto) Lymph % (Auto) Walker % (Auto) Eos % (Auto) Baso % (Auto) Neut # (Auto) Lymph # (Auto) Walker # (Auto) Eos # (Auto) Baso # (Auto) pO2 49 VBG pH 7.44 H VBG pCO2 39 L VBG HCO3 26.4 VBG Total CO2 27.7 VBG O2 Sat (Calc) 87.3 H VBG Base Excess 2.3 H VBG Potassium 3.9 Glucose 170 H Lactate 1.3 FiO2 21.0 Sodium 131.0 L 133 Potassium 3.7 Chloride 101.0 103 Carbon Dioxide 25 Anion Gap 9 L BUN 8 Creatinine 0.4 L Est GFR ( Amer) > 60 Est GFR (Non-Af Amer) > 60 POC Glucose (mg/dL) Random Glucose 88 Lactic Acid Calcium 7.2 L Total Bilirubin AST ALT Alkaline Phosphatase Total Protein Albumin Globulin Albumin/Globulin Ratio Venous Blood Potassium 3.9 04/07/18 06:00 WBC RBC Hgb Hct MCV MCH MCHC RDW Plt Count MPV Neut % (Auto) Lymph % (Auto) Walker % (Auto) Eos % (Auto) Baso % (Auto) Neut # (Auto) Lymph # (Auto) Walker # (Auto) Eos # (Auto) Baso # (Auto) pO2 VBG pH VBG pCO2 VBG HCO3 VBG Total CO2 VBG O2 Sat (Calc) VBG Base Excess VBG Potassium Glucose Lactate FiO2 Sodium Potassium Chloride Carbon Dioxide Anion Gap BUN Creatinine Est GFR ( Amer) Est GFR (Non-Af Amer) POC Glucose (mg/dL) Random Glucose Lactic Acid 1.0 Calcium Total Bilirubin AST ALT Alkaline Phosphatase Total Protein Albumin Globulin Albumin/Globulin Ratio Venous Blood Potassium Assessment & Plan (1) Asthma Status: Chronic Priority: High Comment: Well controleed at present. Continue present aerosol regimen. (2) Pelvic abscess Status: Acute Priority: High Comment: Surgical consult requested. Presently on antibiotics empirically. Culture specimen obtained. (3) Atelectasis Status: Acute Priority: High Comment: Bibasal passive atelectasis, L>R. Deep breathing exercises, incentive spirometry, early ambulation. (4) BAR (obstructive sleep apnea) Status: Chronic Priority: Medium Comment: Presently not a factor, will observe clinically. Has equipment at home. (5) Pleural effusion Status: Inactive Comment: These are small effusions which can be followed with imaging studies. - Date & Time Date: 04/07/18 Time: 09:45
[2018-04-07 09:29] LABS: INR 1.3 (0.9-1.2); PROTHROMBIN TIME 14.9 Seconds (9.8-13.1)
[2018-04-07] MEDS ORDERED: LIDOCAINE 2% 10ML 20 MG/ML VIAL IJ ONE (14:20)
[2018-04-07] MEDS ORDERED: Propofol 10 mg/ml Inj (20 ML) ONE (14:57)
--- NOTE | 2018-04-07 16:07 | PCM.SURG1 ---
Surgeon's Initial Post Op Note - Surgeon's Notes Surgeon: Galen Paige MD Pediatric Associate: None Type of Anesthesia: MAC Pre-Operative Diagnosis: pelvic abscess Operative Findings: abscess near rectal stump suture line Post-Operative Diagnosis: same Operation Performed: CT guided pelvic abscess drainage Specimen/Specimens Removed: 100 cc thickn brownish fluid removed; sample submitted Estimated Blood Loss: EBL {In ML}: 3 Date of Surgery/Procedure: 04/07/18 Time of Surgery/Procedure: 15:30
[2018-04-07] MEDS ORDERED: Fluconazole IV 400mg/200ml NS 200 ML IVPB SCH (17:15)
[2018-04-07] MEDS: OLOPATADINE HCL EACHEYE SCH (18:13)
[2018-04-07] MEDS: Fluconazole IV 400mg/200ml NS 200 ML IVPB SCH (18:28)
[2018-04-07] MEDS ORDERED: Hydrogen Peroxide 237 ML SOL TP ONE (19:20)
[2018-04-07] MEDS: Hydrogen Peroxide 3% Soln (480ml) TP ONE ×2 (22:31→23:53)
[2018-04-07] MEDS ORDERED: Meropenem 1 GM in Sodium Chloride 0.9% 100 ML IVPB STA (23:09)
[2018-04-08] MEDS: Piperacillin/Tazobact 4.5 GM in Sodium Chloride 0.9% 100 ML IVPB SCH ×2 (00:02→08:35)
[2018-04-08] MEDS: Meropenem 1 GM in Sodium Chloride 0.9% 100 ML IVPB SCH ×3 (00:07→16:49)
[2018-04-08] MEDS: Insulin Lispro (humaLOG) 100 Units/ml Inj SC SCH ×4 (04:00→22:03)
[2018-04-08] MEDS: Levothyroxine 175 MCG TAB PO SCH (05:40)
[2018-04-08 05:46] LABS: BASO % 0.4 % (0.0-2.0); EOS # 0.1 K/uL (0.0-0.7); EOS % 0.9 % (0.0-4.0); HEMOGLOBIN 10.5 g/dL (12.0-16.0); LYMPH # 3.2 K/uL (1.0-4.3); LYMPH % 36.1 % (20.0-40.0); MEAN CELL VOLUME 90.2 fl (81.0-99.0); MEAN CORPUSCULAR HEMOGLOBIN 29.6 pg (27.0-31.0); MEAN CORPUSCULAR HGB CONC 32.7 g/dL (33.0-37.0); MONO # 0.9 K/uL (0.0-0.8); NEUT # 4.7 K/uL (1.8-7.0); NEUT % 52.6 % (50.0-75.0); RBC 3.55 Mil/uL (3.80-5.20); RED CELL DISTRIBUTION WIDTH 21.3 % (11.5-14.5); WHITE BLOOD COUNT 8.9 K/uL (4.8-10.8)
[2018-04-08 05:53] LABS: ALB/GLOB RATIO 0.6 (1.0-2.1); ALBUMIN 2.1 g/dL (3.5-5.0); ALT/SGPT 29 U/L (9-52); AST/SGOT 36 U/L (14-36); BLOOD UREA NITROGEN 7 mg/dl (7-17); CALCIUM 7.4 mg/dL (8.4-10.2); GFR AFRICAN-AMERICAN > 60; GFR NON-AFRICAN AMERICAN > 60
[2018-04-08] MEDS ORDERED: Potassium Chloride 20 mEq ER Tab PO ONE (06:53)
[2018-04-08] MEDS: Albuterol-Ipratrop 3 mg / 0.5 (3 ml) UD INH SCH ×4 (08:00→20:07)
[2018-04-08] MEDS ORDERED: Potassium Chloride 20 mEq 100 ML IVPB ONE (08:22)
--- NOTE | 2018-04-08 08:24 | CP.PCM.PN ---
Subjective - Date & Time of Evaluation Date of Evaluation: 04/08/18 Time of Evaluation: 08:23 - Subjective Subjective: pt comfortable this am, however states she still does not have appetite. denies pain, cp/dyspnea HD stable NAD Objective - Vital Signs/Intake and Output Vital Signs (last 24 hours): Temp Pulse Resp BP Pulse Ox 98.3 F 97 H 19 141/82 100 04/08/18 08:00 04/08/18 08:00 04/08/18 08:00 04/08/18 08:00 04/08/18 08:00 Intake and Output: 04/08/18 04/08/18 06:59 18:59 Intake Total 728 Output Total 340 Balance 388 - Medications Medications: Current Medications Acetaminophen (Tylenol 325mg Tab) 650 mg PO Q6H PRN PRN Reason: Pain, Mild (1-3) Last Admin: 04/07/18 16:35 Dose: 650 mg Acetaminophen (Tylenol 325mg Tab) 650 mg PO Q6H PRN PRN Reason: Fever >100.4 F Acetaminophen (Tylenol 325mg Tab) 650 mg PO Q6 PRN PRN Reason: Fever >100.4 F Albuterol/Ipratropium (Duoneb 3 Mg/0.5 Mg (3 Ml) Ud) 3 ml INH RQID [facility] Last Admin: 04/08/18 08:00 Dose: 3 ml Atorvastatin Calcium (Lipitor) 40 mg PO QPM [facility] Last Admin: 04/07/18 18:28 Dose: 40 mg Diltiazem HCl (Cardizem) 30 mg PO QID [facility] Last Admin: 04/07/18 22:17 Dose: 30 mg Enoxaparin Sodium (Lovenox) 40 mg SC DAILY [facility] PRN Reason: Protocol Home Med (Olopatadine Hcl [Pazeo]) 1 drop EACHEYE DAILY [facility] Last Admin: 04/07/18 18:13 Dose: Not Given Vancomycin HCl 1 gm/ Sodium (Chloride) 250 mls @ 166.667 mls/hr IVPB Q12 [facility] PRN Reason: Protocol Last Admin: 04/07/18 20:15 Dose: 166.667 mls/hr Piperacillin Sod/Tazobactam (Sod 4.5 gm/ Sodium Chloride) 100 mls @ 100 mls/hr IVPB Q8 [facility] PRN Reason: Protocol Last Admin: 04/08/18 00:02 Dose: 100 mls/hr Fluconazole (Diflucan Iv 400mg/200ml Ns) 200 mls @ 100 mls/hr IVPB DAILY [facility] PRN Reason: Protocol Last Admin: 04/07/18 18:28 Dose: 100 mls/hr Meropenem 1 gm/ Sodium (Chloride) 100 mls @ 100 mls/hr IVPB Q8 [facility] PRN Reason: Protocol Last Admin: 04/08/18 00:07 Dose: Not Given Potassium Chloride (Potassium Chloride 20 Meq/100 Ml) 100 mls @ 50 mls/hr IVPB ONCE ONE Stop: 04/08/18 10:21 Insulin Human Lispro (Humalog) 0 units SC Q6H [facility] PRN Reason: Protocol Last Admin: 04/08/18 04:00 Dose: Not Given Levothyroxine Sodium (Synthroid) 175 mcg PO DAILY@0630 [facility] Last Admin: 04/08/18 05:40 Dose: 175 mcg Morphine Sulfate (Morphine) 2 mg IVP Q4H PRN PRN Reason: Pain, severe (8-10) Last Admin: 04/07/18 22:26 Dose: 2 mg Pantoprazole Sodium (Protonix Ec Tab) 40 mg PO DAILY [facility] Last Admin: 04/07/18 08:28 Dose: 40 mg Fluticasone/Salmeterol (Advair Diskus 250/50) 1 puff IH Q12 [facility] Last Admin: 04/07/18 22:17 Dose: 1 puff Tramadol HCl (Ultram) 50 mg PO TID PRN PRN Reason: Pain, moderate (4-7) Last Admin: 04/08/18 05:39 Dose: 50 mg - Labs Labs: 04/08/18 04:25 04/08/18 04:25 PT 14.9 Seconds (9.8-13.1) H 04/07/18 08:22 INR 1.3 (0.9-1.2) H 04/07/18 08:22 - Constitutional Appears: Non-toxic, No Acute Distress - Head Exam Head Exam: ATRAUMATIC, NORMOCEPHALIC - Eye Exam Eye Exam: EOMI, Normal appearance - ENT Exam ENT Exam: Mucous Membranes Moist, Normal Oropharynx - Neck Exam Neck Exam: Full ROM, Normal Inspection - Respiratory Exam Respiratory Exam: Clear to Ausculation Bilateral, NORMAL BREATHING PATTERN - Cardiovascular Exam Cardiovascular Exam: RRR, +S1, +S2 - GI/Abdominal Exam GI & Abdominal Exam: Soft, Tenderness (at op sites), Normal Bowel Sounds. absent: Mass, Organomegaly - Extremities Exam Extremities Exam: Normal Capillary Refill, Normal Inspection - Neurological Exam Neurological Exam: Alert, Awake, Oriented x3 - Psychiatric Exam Psychiatric exam: Normal Affect, Normal Mood - Skin Skin Exam: Dry, Warm Assessment and Plan - Assessment and Plan (Free Text) Plan: 87 y/o lady , well known to the Hospitalist team from previous admission last month. She had Colon Perforation after Colonoscopy and underwent Sigmoid Resection and Colostomy. She was d/c to a [facility] on 03/05. She came back because of abdominal pain, chills and purulent drainage from her surgical wound. CT of the abdomen/Pelvis: Large pelvic abscess collection closely associated with the rectal stump raising suspicion for leak. LEFT lower quadrant colostomy with postsurgical changes in the abdominal and pelvic wall. Small amount of fluid in the abdominal and pelvic wall with inflammatory stranding. No significant drainable fluid collection or abscess. Diverticulosis. Bilateral pleural effusions with overlying compressive atelectasis or infiltrate. Cholecystectomy. LEFT renal cysts. No followup necessary. Probable splenic cyst. No followup necessary. Small pericardial effusion 04/08 - patient doing well in ICU, vitals stable, intermittent episodes of tachycardia, pt has hx of afib. Stable for downgrade to telemetry. Likely D/C Vanc, will discuss with ID. (1) Sepsis sec to Pelvic Abscess and Abdominal Wound Abscess - cont Vanco and Zosyn IV, afebrile - ID consulted- Dr Garcia (ID who saw pt on previous admission) - recommended to add IV Diflucan - Abdominal Abscess c/s - GRAM NEGATIVE RODS - Blood c/s - Neg 24 hours - Surgery consulted - rec IR Drainage of abscess - Pt underwent IR drainage of abscess - 100 ml of brownish material obtained- sent for Micro - Initial result GRAM NEG RODS - Pain mgmt (2) Abdominal wall abscess at site of surgical wound Status: Acute 2 small areas of dehiscence noted draining purulent material (3) Diabetes mellitus, type II Status: Chronic Priority: High accucheck (4) CHF (congestive heart failure), chronic diastolic hold off on Losaratan and Lasix for now as pt has low BP (5) Atrial fibrillation, chronic with RVR Status: Chronic off anticoag due to her GI bleed restart low dose Cardizem bec of RVR Cardio consult - Dr Arriaga (6) Asthma ( mild intermittent ) chronic COPD (chronic obstructive pulmonary disease), chronic Atelectasis/Pleural Effusion seen on CT Pulm consult Duoneb treatments (7) Hypertension Status: Chronic Priority: Medium restart Cardizem for now , low normal BP, hold Lasix (8) Hypothyroidism Status: Chronic Priority: Medium cont Levothyroxine (9) DVT prophylaxis Status: Acute Lovenox -
[2018-04-08] MEDS: Fluticasone-Salmeterol 250-50mcg Diskus IH SCH ×2 (08:28→22:01)
[2018-04-08] MEDS: Fluconazole IV 400mg/200ml NS 200 ML IVPB SCH (08:30)
[2018-04-08] MEDS: Enoxaparin 40 mg Syringe SC SCH (08:32)
[2018-04-08] MEDS: Pantoprazole 40 mg EC Tab PO SCH (08:34)
--- NOTE | 2018-04-08 08:58 | CP.PCM.PN ---
Subjective - Date & Time of Evaluation Date of Evaluation: 04/08/18 Time of Evaluation: 08:58 - Subjective Subjective: Seen on morning rounds in ICU. More awake and appears a little more comfortable. Drainage catheter inserted by IR yesterday, small volume of fluid, gram neg rods. Remains in triple antibiotic coverage. Has remained afebrile, mildly tachycardic, mildly hypertensive, well oxygenated. + dependant edema in the abdominal area, no edema of LE's, no cyanosis. Neck is supple, no visible JVD, no jaundice. No dullness on percussion of the anterior chest wall, no subcut emphysema. Breath sounds are well heard bilaterally with improved air entry in the area of the LLL. No audible wheezes or bronchial breath sounds. Dry rales are heard in the lower lobe regions posteriorly. Heart sounds well heard, irregular rhythm. Abdominal dressing intact, colostomy intact, right sided drainage catheter intact. Respiratory status seems quite stable at this time. Would not make any changes in this area. Awaiting culture ID of organism. Further plans depend on the above and the surgical followup. Agree patient may be transferred out of the ICU. Objective - Vital Signs/Intake and Output Vital Signs (last 24 hours): Temp Pulse Resp BP Pulse Ox 98.3 F 114 H 13 141/82 100 04/08/18 08:00 04/08/18 08:29 04/08/18 08:29 04/08/18 08:29 04/08/18 08:29 Intake and Output: 04/07/18 04/08/18 23:59 11:59 Intake Total 1260 928 Output Total 230 190 Balance 1030 738 - Medications Medications: Current Medications Acetaminophen (Tylenol 325mg Tab) 650 mg PO Q6H PRN PRN Reason: Pain, Mild (1-3) Last Admin: 04/07/18 16:35 Dose: 650 mg Acetaminophen (Tylenol 325mg Tab) 650 mg PO Q6H PRN PRN Reason: Fever >100.4 F Acetaminophen (Tylenol 325mg Tab) 650 mg PO Q6 PRN PRN Reason: Fever >100.4 F Albuterol/Ipratropium (Duoneb 3 Mg/0.5 Mg (3 Ml) Ud) 3 ml INH RQID [facility] Last Admin: 04/08/18 08:00 Dose: 3 ml Atorvastatin Calcium (Lipitor) 40 mg PO QPM [facility] Last Admin: 04/07/18 18:28 Dose: 40 mg Diltiazem HCl (Cardizem) 30 mg PO QID [facility] Last Admin: 04/08/18 08:29 Dose: 30 mg Enoxaparin Sodium (Lovenox) 40 mg SC DAILY [facility] PRN Reason: Protocol Last Admin: 04/08/18 08:32 Dose: 40 mg Home Med (Olopatadine Hcl [Pazeo]) 1 drop EACHEYE DAILY [facility] Last Admin: 04/07/18 18:13 Dose: Not Given Vancomycin HCl 1 gm/ Sodium (Chloride) 250 mls @ 166.667 mls/hr IVPB Q12 [facility] PRN Reason: Protocol Last Admin: 04/08/18 08:34 Dose: 166.667 mls/hr Piperacillin Sod/Tazobactam (Sod 4.5 gm/ Sodium Chloride) 100 mls @ 100 mls/hr IVPB Q8 [facility] PRN Reason: Protocol Last Admin: 04/08/18 08:35 Dose: 100 mls/hr Fluconazole (Diflucan Iv 400mg/200ml Ns) 200 mls @ 100 mls/hr IVPB DAILY [facility] PRN Reason: Protocol Last Admin: 04/08/18 08:30 Dose: 100 mls/hr Meropenem 1 gm/ Sodium (Chloride) 100 mls @ 100 mls/hr IVPB Q8 [facility] PRN Reason: Protocol Last Admin: 04/08/18 08:33 Dose: 100 mls/hr Potassium Chloride (Potassium Chloride 20 Meq/100 Ml) 100 mls @ 50 mls/hr IVPB ONCE ONE Stop: 04/08/18 10:21 Insulin Human Lispro (Humalog) 0 units SC Q6H [facility] PRN Reason: Protocol Last Admin: 04/08/18 04:00 Dose: Not Given Levothyroxine Sodium (Synthroid) 175 mcg PO DAILY@0630 [facility] Last Admin: 04/08/18 05:40 Dose: 175 mcg Morphine Sulfate (Morphine) 2 mg IVP Q4H PRN PRN Reason: Pain, severe (8-10) Last Admin: 04/07/18 22:26 Dose: 2 mg Pantoprazole Sodium (Protonix Ec Tab) 40 mg PO DAILY [facility] Last Admin: 04/08/18 08:34 Dose: 40 mg Fluticasone/Salmeterol (Advair Diskus 250/50) 1 puff IH Q12 [facility] Last Admin: 04/08/18 08:28 Dose: 1 puff Tramadol HCl (Ultram) 50 mg PO TID PRN PRN Reason: Pain, moderate (4-7) Last Admin: 04/08/18 05:39 Dose: 50 mg - Labs Labs: 04/08/18 04:25 04/08/18 04:25 PT 14.9 Seconds (9.8-13.1) H 04/07/18 08:22 INR 1.3 (0.9-1.2) H 04/07/18 08:22 Assessment and Plan (1) Asthma Status: Chronic (2) Pelvic abscess Status: Acute (3) Atelectasis Status: Acute (4) BAR (obstructive sleep apnea) Status: Chronic (5) Pleural effusion Status: Inactive
--- NOTE | 2018-04-08 11:15 | CT ---
PROCEDURE: CT-GUIDED ABSCESS DRAINAGE CLINICAL HISTORY: 87-year-old female with abscess near rectal stump is referred to Interventional Radiology for percutaneous abscess drainage. COMPARISON: CT scan of the abdomen and pelvis dated 04/06/2018 PROCEDURE: 1. Focused CT of the pelvis. 2. CT-guided abscess drainage. PRE-PROCEDURE FINDINGS: 1. Abscess near rectal stump POST-PROCEDURE FINDINGS: 1. No evidence of post-procedural complication. INTERVENTIONAL RADIOLOGIST: Galen Paige M.D. (the attending was present for the entire procedure) ANESTHESIA: Provided by the attending anesthesiologist. Sedation was supervised by the anesthesiology attending with the presence of independent radiology nursing monitoring. Physiological data monitoring was performed throughout the entire procedure. The patient's blood pressure, EKG and pulse oximetry were recorded. The patient tolerated the procedure and sedation without untoward reactions. The intra-procedural sedation time was 15 minutes. MEDICATIONS: Lidocaine 1% for local subcutaneous analgesia. See anesthesia record for intravenous sedation medication COMPLICATIONS: None. PROCEDURE DESCRIPTION AND FINDINGS: The risks, benefits, alternatives and possible complications of the procedure were fully discussed; all questions were answered and informed consent was obtained. The patient was brought into the interventional suite and a pre-procedure 'time-out' was performed. The patient was placed on the CT table in the supine position. The fluid collection was localized under CT-guidance and a mildred was made on the overlying skin. The right lower quadrant was prepped and draped in the usual sterile fashion. Maximum sterile barrier precautions were maintained throughout the entire procedure. Preliminary focused CT images of the pelvis again demonstrate abscess near rectal stump. Following subcutaneous infiltration of lidocaine 1% for local analgesia, under CT-guidance, an 18-gauge trocar needle was advanced into the abscess. An 0.035 guidewire was looped within the collection and optimal position was confirmed with CT imaging. After serial dilatation, an 8 Ukrainian all purpose drainage pigtail catheter was advanced over the guidewire into the collection. Approximately 100 mL of thick, brownish fluid was aspirated and a sample was sent to microbiology for culture and sensitivity. Post-procedure imaging demonstrated decompression of the fluid collection post pigtail catheter placement without evidence of complications. The catheter was secured to the skin utilizing a sterile adhesive bandage and left to external gravity bag drainage. The patient tolerated the procedure well without immediate post-procedure complications and was transferred back to the floor in stable condition. IMPRESSION: Successful CT-guided drainage of pelvic abscess with placement of 8 Ukrainian all purpose drainage pigtail catheter within the collection.
--- NOTE | 2018-04-08 12:00 | CP.PCM.CON ---
History of Present Illness - History of Present Illness History of Present Illness: 87 y/o female with multiple chronic conditions was admitted to this hospital last month for GIB. At the time she had had a perforation of her colon following colonoscopy, and required surgery. Now she is s/p colostomy. She was noted to have abd pain and drainage from the surgical wound site for past 2 days , and was sent here. ON admission was found to have abscess in pelvis at rectal stump - went for drainage Now in ICU on IV antibiotics ID consult requested ROS: limited given patient poor historian MHx: Arthritis, Asthma, Atrial Fibrillation, CAD (Questionable), CHF, COPD, Depression, Diabetes (type II), Diverticulitis, HTN, Hypercholesterolemia, Hypothyroidism, Sleep Apnea SHx: Recent bowel surgery as noted above, cholecystectomy, back surgery Allergies: NKDA Medications: Per med rec Family Hx: HTN runs in family, o/w unknown Social Hx: at a rehab currently; no EtOH no tobacco Review of Systems - Review of Systems All systems: reviewed and no additional remarkable complaints except Past Patient History - Infectious Disease Hx of Infectious Diseases: None - Past Medical History & Family History Past Medical History?: Yes - Past Social History Smoking Status: Former Smoker (smoked casually many years ago, less than 100 cigarettes in her lifetime) Chewing Tobacco Use: No Cigar Use: No Alcohol: None Drugs: Denies Home Situation {Lives}: Other ([facility]) - CARDIAC Hx Atrial Fibrillation: Yes Hx Hypercholesterolemia: Yes Hx Hypertension: Yes - PULMONARY Hx Asthma: Yes Hx Pneumonia: Yes Hx Sleep Apnea: Yes - NEUROLOGICAL Hx Neurological Disorder: No - HEENT Hx HEENT Problems: No - RENAL Hx Chronic Kidney Disease: No - ENDOCRINE/METABOLIC Hx Hypothyroidism: Yes - HEMATOLOGICAL/ONCOLOGICAL Hx Anemia: Yes - INTEGUMENTARY Hx Dermatological Problems: Yes - MUSCULOSKELETAL/RHEUMATOLOGICAL Hx Back Pain: Yes Hx Degenerative Joint Disease: Yes (knees) Hx Osteoarthritis: Yes - GASTROINTESTINAL Hx Diverticulitis: Yes Other/Comment: perforated viscus repaired last admission - GENITOURINARY/GYNECOLOGICAL Hx Genitourinary Disorders: No - PSYCHIATRIC Hx Depression: Yes - SURGICAL HISTORY Hx Cholecystectomy: Yes Hx Hysterectomy: Yes Other/Comment: lumbar laminectomy-remote, repair of colon perforation with colostomy - ANESTHESIA Hx Anesthesia: Yes Hx Anesthesia Reactions: No Hx Malignant Hyperthermia: No Meds Allergies/Adverse Reactions: Allergies Allergy/AdvReac Type Severity Reaction Status Date / Time No Known Allergies Allergy Verified 03/15/18 12:12 - Medications Medications: Current Medications Acetaminophen (Tylenol 325mg Tab) 650 mg PO Q6H PRN PRN Reason: Pain, Mild (1-3) Last Admin: 04/07/18 16:35 Dose: 650 mg Acetaminophen (Tylenol 325mg Tab) 650 mg PO Q6H PRN PRN Reason: Fever >100.4 F Acetaminophen (Tylenol 325mg Tab) 650 mg PO Q6 PRN PRN Reason: Fever >100.4 F Albuterol/Ipratropium (Duoneb 3 Mg/0.5 Mg (3 Ml) Ud) 3 ml INH RQID [facility] Last Admin: 04/08/18 11:16 Dose: 3 ml Atorvastatin Calcium (Lipitor) 40 mg PO QPM [facility] Last Admin: 04/07/18 18:28 Dose: 40 mg Diltiazem HCl (Cardizem) 30 mg PO QID [facility] Last Admin: 04/08/18 08:29 Dose: 30 mg Enoxaparin Sodium (Lovenox) 40 mg SC DAILY [facility] PRN Reason: Protocol Last Admin: 04/08/18 08:32 Dose: 40 mg Home Med (Olopatadine Hcl [Pazeo]) 1 drop EACHEYE DAILY [facility] Last Admin: 04/07/18 18:13 Dose: Not Given Vancomycin HCl 1 gm/ Sodium (Chloride) 250 mls @ 166.667 mls/hr IVPB Q12 [facility] PRN Reason: Protocol Last Admin: 04/08/18 08:34 Dose: 166.667 mls/hr Piperacillin Sod/Tazobactam (Sod 4.5 gm/ Sodium Chloride) 100 mls @ 100 mls/hr IVPB Q8 [facility] PRN Reason: Protocol Last Admin: 04/08/18 08:35 Dose: 100 mls/hr Fluconazole (Diflucan Iv 400mg/200ml Ns) 200 mls @ 100 mls/hr IVPB DAILY [facility] PRN Reason: Protocol Last Admin: 04/08/18 08:30 Dose: 100 mls/hr Meropenem 1 gm/ Sodium (Chloride) 100 mls @ 100 mls/hr IVPB Q8 [facility] PRN Reason: Protocol Last Admin: 04/08/18 08:33 Dose: 100 mls/hr Insulin Human Lispro (Humalog) 0 units SC Q6H [facility] PRN Reason: Protocol Last Admin: 04/08/18 04:00 Dose: Not Given Levothyroxine Sodium (Synthroid) 175 mcg PO DAILY@0630 [facility] Last Admin: 04/08/18 05:40 Dose: 175 mcg Morphine Sulfate (Morphine) 2 mg IVP Q4H PRN PRN Reason: Pain, severe (8-10) Last Admin: 04/07/18 22:26 Dose: 2 mg Pantoprazole Sodium (Protonix Ec Tab) 40 mg PO DAILY [facility] Last Admin: 04/08/18 08:34 Dose: 40 mg Fluticasone/Salmeterol (Advair Diskus 250/50) 1 puff IH Q12 [facility] Last Admin: 04/08/18 08:28 Dose: 1 puff Tramadol HCl (Ultram) 50 mg PO TID PRN PRN Reason: Pain, moderate (4-7) Last Admin: 04/08/18 05:39 Dose: 50 mg Physical Exam - Constitutional Appears: Non-toxic, No Acute Distress, Chronically Ill - Head Exam Head Exam: ATRAUMATIC, NORMOCEPHALIC - Eye Exam Eye Exam: PERRL. absent: Scleral icterus - ENT Exam ENT Exam: Mucous Membranes Dry, Normal External Ear Exam - Neck Exam Neck exam: Negative for: Lymphadenopathy - Respiratory Exam Respiratory Exam: Decreased Breath Sounds, Rhonchi - Cardiovascular Exam Cardiovascular Exam: REGULAR RHYTHM, +S1, +S2 - GI/Abdominal Exam GI & Abdominal Exam: Diminished Bowel Sounds, Distended, Soft, Tenderness Additional comments: RLQ Drain midline incision LLQ colostomy - Rectal Exam Rectal Exam: Deferred - Exam Exam: NORMAL INSPECTION - Extremities Exam Extremities exam: Negative for: pedal edema - Back Exam Back exam: absent: CVA tenderness (L), CVA tenderness (R) - Neurological Exam Neurological exam: Alert, CN II-XII Intact - Psychiatric Exam Psychiatric exam: Depressed Results - Vital Signs Recent Vital Signs: Last Vital Signs Temp 98.3 F 04/08/18 08:00 Pulse 114 H 04/08/18 08:29 Resp 13 04/08/18 08:29 BP 141/82 04/08/18 08:29 Pulse Ox 100 04/08/18 08:29 - Labs Result Diagrams: 04/08/18 04:25 04/08/18 04:25 Labs: Laboratory Results - last 24 hr 04/07/18 04/07/18 04/07/18 16:39 19:58 21:02 WBC RBC Hgb Hct MCV MCH MCHC RDW Plt Count MPV Neut % (Auto) Lymph % (Auto) [place] % (Auto) Eos % (Auto) Baso % (Auto) Neut # (Auto) Lymph # (Auto) [place] # (Auto) Eos # (Auto) Baso # (Auto) Sodium Potassium Chloride Carbon Dioxide Anion Gap BUN Creatinine Est GFR ( Amer) Est GFR (Non-Af Amer) POC Glucose (mg/dL) 95 77 101 Random Glucose Calcium Magnesium Total Bilirubin AST ALT Alkaline Phosphatase Total Protein Albumin Globulin Albumin/Globulin Ratio 04/08/18 04/08/18 04/08/18 04:08 04:25 04:25 WBC 8.9 RBC 3.55 L Hgb 10.5 L Hct 32.1 L MCV 90.2 MCH 29.6 MCHC 32.7 L RDW 21.3 H Plt Count 218 MPV 8.0 Neut % (Auto) 52.6 Lymph % (Auto) 36.1 [place] % (Auto) 10.0 Eos % (Auto) 0.9 Baso % (Auto) 0.4 Neut # (Auto) 4.7 Lymph # (Auto) 3.2 [place] # (Auto) 0.9 H Eos # (Auto) 0.1 Baso # (Auto) 0.0 Sodium 137 Potassium 3.1 L Chloride 103 Carbon Dioxide 24 Anion Gap 13 BUN 7 Creatinine 0.3 L Est GFR ( Amer) > 60 Est GFR (Non-Af Amer) > 60 POC Glucose (mg/dL) 88 Random Glucose 78 Calcium 7.4 L Magnesium Total Bilirubin 0.4 AST 36 ALT 29 Alkaline Phosphatase 113 Total Protein 5.3 L Albumin 2.1 L Globulin 3.3 Albumin/Globulin Ratio 0.6 L 04/08/18 04/08/18 08:30 11:28 WBC RBC Hgb Hct MCV MCH MCHC RDW Plt Count MPV Neut % (Auto) Lymph % (Auto) [place] % (Auto) Eos % (Auto) Baso % (Auto) Neut # (Auto) Lymph # (Auto) [place] # (Auto) Eos # (Auto) Baso # (Auto) Sodium Potassium Chloride Carbon Dioxide Anion Gap BUN Creatinine Est GFR ( Amer) Est GFR (Non-Af Amer) POC Glucose (mg/dL) 122 H Random Glucose Calcium Magnesium 1.4 L Total Bilirubin AST ALT Alkaline Phosphatase Total Protein Albumin Globulin Albumin/Globulin Ratio Assessment & Plan - Assessment and Plan (Free Text) Assessment: s/p drainage pelvic abscess hx GIB and colostomy IV Vanco/ Merrem and Diflucan
[2018-04-08] MEDS: OLOPATADINE HCL EACHEYE SCH (12:09)
--- NOTE | 2018-04-08 13:26 | CP.PCM.PN ---
Subjective - Date & Time of Evaluation Date of Evaluation: 04/08/18 Time of Evaluation: 13:24 - Subjective Subjective: General Surgery Progress Note 87F seen at bedside for pelvic abscess likely 2/2 rectal stump leak and anterior abdominal wall abscess one day s/p abscess drainage by IR. 100 cc of thick brown fluid drained. Patient AAO x 3 at time of visit. States that she is still having abdominal pain. Denies any other complaints or acute overnight events. Denies N/V/F/C/CP/SOB. Colostomy bag noted to be in place. Objective - Vital Signs/Intake and Output Vital Signs (last 24 hours): Temp Pulse Resp BP Pulse Ox 98.5 F 101 H 19 120/65 97 04/08/18 12:00 04/08/18 12:08 04/08/18 12:08 04/08/18 12:08 04/08/18 12:08 Intake and Output: 04/08/18 04/08/18 06:59 18:59 Intake Total 728 870 Output Total 340 Balance 388 870 - Medications Medications: Current Medications Acetaminophen (Tylenol 325mg Tab) 650 mg PO Q6H PRN PRN Reason: Pain, Mild (1-3) Last Admin: 04/07/18 16:35 Dose: 650 mg Acetaminophen (Tylenol 325mg Tab) 650 mg PO Q6H PRN PRN Reason: Fever >100.4 F Acetaminophen (Tylenol 325mg Tab) 650 mg PO Q6 PRN PRN Reason: Fever >100.4 F Albuterol/Ipratropium (Duoneb 3 Mg/0.5 Mg (3 Ml) Ud) 3 ml INH RQID [facility] Last Admin: 04/08/18 11:16 Dose: 3 ml Atorvastatin Calcium (Lipitor) 40 mg PO QPM [facility] Last Admin: 04/07/18 18:28 Dose: 40 mg Diltiazem HCl (Cardizem) 30 mg PO QID [facility] Last Admin: 04/08/18 12:08 Dose: 30 mg Enoxaparin Sodium (Lovenox) 40 mg SC DAILY [facility] PRN Reason: Protocol Last Admin: 04/08/18 08:32 Dose: 40 mg Home Med (Olopatadine Hcl [Pazeo]) 1 drop EACHEYE DAILY [facility] Last Admin: 04/08/18 12:09 Dose: Not Given Fluconazole (Diflucan Iv 400mg/200ml Ns) 200 mls @ 100 mls/hr IVPB DAILY [facility] PRN Reason: Protocol Last Admin: 04/08/18 08:30 Dose: 100 mls/hr Meropenem 1 gm/ Sodium (Chloride) 100 mls @ 100 mls/hr IVPB Q8 [facility] PRN Reason: Protocol Last Admin: 04/08/18 08:33 Dose: 100 mls/hr Insulin Human Lispro (Humalog) 0 units SC Q6H [facility] PRN Reason: Protocol Last Admin: 04/08/18 12:08 Dose: Not Given Levothyroxine Sodium (Synthroid) 175 mcg PO DAILY@0630 [facility] Last Admin: 04/08/18 05:40 Dose: 175 mcg Morphine Sulfate (Morphine) 2 mg IVP Q4H PRN PRN Reason: Pain, severe (8-10) Last Admin: 04/07/18 22:26 Dose: 2 mg Pantoprazole Sodium (Protonix Ec Tab) 40 mg PO DAILY [facility] Last Admin: 04/08/18 08:34 Dose: 40 mg Fluticasone/Salmeterol (Advair Diskus 250/50) 1 puff IH Q12 [facility] Last Admin: 04/08/18 08:28 Dose: 1 puff Tramadol HCl (Ultram) 50 mg PO TID PRN PRN Reason: Pain, moderate (4-7) Last Admin: 04/08/18 05:39 Dose: 50 mg - Labs Labs: 04/08/18 04:25 04/08/18 04:25 PT 14.9 Seconds (9.8-13.1) H 04/07/18 08:22 INR 1.3 (0.9-1.2) H 04/07/18 08:22 - Constitutional Appears: Well, Non-toxic, No Acute Distress - Head Exam Head Exam: ATRAUMATIC, NORMOCEPHALIC - GI/Abdominal Exam Additional comments: Colostomy intact, functioning, liquid stool in ostomy bag Scant purulent output overnight - Neurological Exam Neurological Exam: Alert, Awake, Oriented x3 - Psychiatric Exam Psychiatric exam: Normal Affect, Normal Mood Assessment and Plan - Assessment and Plan (Free Text) Assessment: 87F with pelvic abscess likely 2/2 rectal stump leak and anterior abdominal wall abscess Plan: Afebrile, absent leukocytosis Pain meds Abx HHD Anterior abdominal wall copiously flushed with hydrogen peroxide and saline; dressed with ABD pad GNR on abdominal cx prelim Will f/u results
--- NOTE | 2018-04-08 14:15 | CP.PCM.CON ---
History of Present Illness - History of Present Illness History of Present Illness: CARDIOLOGY CONSULT 87F seen at bedside for pelvic abscess likely 2/2 rectal stump leak and anterior abdominal wall abscess POD #1 s/p abscess drainage Pt c/o mild abdominal discomfort Denies palpitations/SOB/chest pain Consult called for prior Hx of chronic Atrial Fibrillation and CHF EKG: Atrial Fibrillation 01/22/2018 Echo: Good LV Function EF: 65-70% Trace MR PMH: Arthritis, Asthma, Atrial Fibrillation, CHF, COPD, Depression, Diabetes (type II), Diverticulitis, HTN, Hypercholesterolemia, Hypothyroidism, Sleep Apnea colostomy Review of Systems - Constitutional Constitutional: As Per HPI - Cardiovascular Cardiovascular: Irregular Heart Rhythm - Respiratory Respiratory: As Per HPI - Gastrointestinal Gastrointestinal: As Per HPI, Abdominal Pain Past Patient History - Infectious Disease Hx of Infectious Diseases: None - Past Medical History & Family History Past Medical History?: Yes - Past Social History Smoking Status: Former Smoker (smoked casually many years ago, less than 100 cigarettes in her lifetime) Chewing Tobacco Use: No Cigar Use: No Alcohol: None Drugs: Denies Home Situation {Lives}: Other ([place]) - CARDIAC Hx Atrial Fibrillation: Yes Hx Hypercholesterolemia: Yes Hx Hypertension: Yes - PULMONARY Hx Asthma: Yes Hx Pneumonia: Yes Hx Sleep Apnea: Yes - NEUROLOGICAL Hx Neurological Disorder: No - HEENT Hx HEENT Problems: No - RENAL Hx Chronic Kidney Disease: No - ENDOCRINE/METABOLIC Hx Hypothyroidism: Yes - HEMATOLOGICAL/ONCOLOGICAL Hx Anemia: Yes - INTEGUMENTARY Hx Dermatological Problems: Yes - MUSCULOSKELETAL/RHEUMATOLOGICAL Hx Back Pain: Yes Hx Degenerative Joint Disease: Yes (knees) Hx Osteoarthritis: Yes - GASTROINTESTINAL Hx Bowel Surgery: Yes Hx Colostomy: Yes Hx Diverticulitis: Yes Other/Comment: perforated viscus repaired last admission - GENITOURINARY/GYNECOLOGICAL Hx Genitourinary Disorders: No - PSYCHIATRIC Hx Depression: Yes - SURGICAL HISTORY Hx Cholecystectomy: Yes Hx Hysterectomy: Yes Other/Comment: lumbar laminectomy-remote, repair of colon perforation with colostomy - ANESTHESIA Hx Anesthesia: Yes Hx Anesthesia Reactions: No Hx Malignant Hyperthermia: No Meds Allergies/Adverse Reactions: Allergies Allergy/AdvReac Type Severity Reaction Status Date / Time No Known Allergies Allergy Verified 01/22/18 12:12 - Medications Medications: Current Medications Acetaminophen (Tylenol 325mg Tab) 650 mg PO Q6H PRN PRN Reason: Pain, Mild (1-3) Last Admin: 05/29/18 16:35 Dose: 650 mg Acetaminophen (Tylenol 325mg Tab) 650 mg PO Q6H PRN PRN Reason: Fever >100.4 F Acetaminophen (Tylenol 325mg Tab) 650 mg PO Q6 PRN PRN Reason: Fever >100.4 F Albuterol/Ipratropium (Duoneb 3 Mg/0.5 Mg (3 Ml) Ud) 3 ml INH RQID [facility] Last Admin: 04/08/18 11:16 Dose: 3 ml Atorvastatin Calcium (Lipitor) 40 mg PO QPM [facility] Last Admin: 04/07/18 18:28 Dose: 40 mg Diltiazem HCl (Cardizem) 30 mg PO QID [facility] Last Admin: 04/08/18 12:08 Dose: 30 mg Enoxaparin Sodium (Lovenox) 40 mg SC DAILY [facility] PRN Reason: Protocol Last Admin: 04/08/18 08:32 Dose: 40 mg Home Med (Olopatadine Hcl [Pazeo]) 1 drop EACHEYE DAILY [facility] Last Admin: 04/08/18 12:09 Dose: Not Given Fluconazole (Diflucan Iv 400mg/200ml Ns) 200 mls @ 100 mls/hr IVPB DAILY [facility] PRN Reason: Protocol Last Admin: 04/08/18 08:30 Dose: 100 mls/hr Meropenem 1 gm/ Sodium (Chloride) 100 mls @ 100 mls/hr IVPB Q8 [facility] PRN Reason: Protocol Last Admin: 04/08/18 08:33 Dose: 100 mls/hr Insulin Human Lispro (Humalog) 0 units SC Q6H [facility] PRN Reason: Protocol Last Admin: 04/08/18 12:08 Dose: Not Given Levothyroxine Sodium (Synthroid) 175 mcg PO DAILY@0630 [facility] Last Admin: 04/08/18 05:40 Dose: 175 mcg Morphine Sulfate (Morphine) 2 mg IVP Q4H PRN PRN Reason: Pain, severe (8-10) Last Admin: 04/07/18 22:26 Dose: 2 mg Pantoprazole Sodium (Protonix Ec Tab) 40 mg PO DAILY [facility] Last Admin: 04/08/18 08:34 Dose: 40 mg Fluticasone/Salmeterol (Advair Diskus 250/50) 1 puff IH Q12 [facility] Last Admin: 04/08/18 08:28 Dose: 1 puff Tramadol HCl (Ultram) 50 mg PO TID PRN PRN Reason: Pain, moderate (4-7) Last Admin: 04/08/18 05:39 Dose: 50 mg Physical Exam - Constitutional Appears: No Acute Distress - Head Exam Head Exam: ATRAUMATIC - Eye Exam Eye Exam: Normal appearance - ENT Exam ENT Exam: Mucous Membranes Moist - Neck Exam Neck exam: Positive for: Normal Inspection - Respiratory Exam Respiratory Exam: NORMAL BREATHING PATTERN - Cardiovascular Exam Cardiovascular Exam: Irregular Rhythm - GI/Abdominal Exam GI & Abdominal Exam: Diminished Bowel Sounds, Distended, Soft - Extremities Exam Extremities exam: Positive for: normal inspection Results - Vital Signs Recent Vital Signs: Last Vital Signs Temp 98.5 F 04/08/18 12:00 Pulse 101 H 04/08/18 12:08 Resp 19 04/08/18 12:08 BP 120/65 04/08/18 12:08 Pulse Ox 97 04/08/18 12:08 - Labs Result Diagrams: 04/08/18 04:25 04/08/18 04:25 Labs: Laboratory Results - last 24 hr 04/07/18 04/07/18 04/07/18 16:39 19:58 21:02 WBC RBC Hgb Hct MCV MCH MCHC RDW Plt Count MPV Neut % (Auto) Lymph % (Auto) Bates % (Auto) Eos % (Auto) Baso % (Auto) Neut # (Auto) Lymph # (Auto) Bates # (Auto) Eos # (Auto) Baso # (Auto) Sodium Potassium Chloride Carbon Dioxide Anion Gap BUN Creatinine Est GFR ( Amer) Est GFR (Non-Af Amer) POC Glucose (mg/dL) 95 77 101 Random Glucose Calcium Magnesium Total Bilirubin AST ALT Alkaline Phosphatase Total Protein Albumin Globulin Albumin/Globulin Ratio 04/08/18 04/08/18 04/08/18 04:08 04:25 04:25 WBC 8.9 RBC 3.55 L Hgb 10.5 L Hct 32.1 L MCV 90.2 MCH 29.6 MCHC 32.7 L RDW 21.3 H Plt Count 218 MPV 8.0 Neut % (Auto) 52.6 Lymph % (Auto) 36.1 Bates % (Auto) 10.0 Eos % (Auto) 0.9 Baso % (Auto) 0.4 Neut # (Auto) 4.7 Lymph # (Auto) 3.2 Bates # (Auto) 0.9 H Eos # (Auto) 0.1 Baso # (Auto) 0.0 Sodium 137 Potassium 3.1 L Chloride 103 Carbon Dioxide 24 Anion Gap 13 BUN 7 Creatinine 0.3 L Est GFR ( Amer) > 60 Est GFR (Non-Af Amer) > 60 POC Glucose (mg/dL) 88 Random Glucose 78 Calcium 7.4 L Magnesium Total Bilirubin 0.4 AST 36 ALT 29 Alkaline Phosphatase 113 Total Protein 5.3 L Albumin 2.1 L Globulin 3.3 Albumin/Globulin Ratio 0.6 L 04/08/18 04/08/18 08:30 11:28 WBC RBC Hgb Hct MCV MCH MCHC RDW Plt Count MPV Neut % (Auto) Lymph % (Auto) Bates % (Auto) Eos % (Auto) Baso % (Auto) Neut # (Auto) Lymph # (Auto) Bates # (Auto) Eos # (Auto) Baso # (Auto) Sodium Potassium Chloride Carbon Dioxide Anion Gap BUN Creatinine Est GFR ( Amer) Est GFR (Non-Af Amer) POC Glucose (mg/dL) 122 H Random Glucose Calcium Magnesium 1.4 L Total Bilirubin AST ALT Alkaline Phosphatase Total Protein Albumin Globulin Albumin/Globulin Ratio Assessment & Plan (1) Abdominal wall abscess at site of surgical wound Status: Acute Priority: High (2) Pelvic abscess Status: Acute Priority: High (3) Atrial fibrillation Assessment and Plan: Patient appears stable cardiac walkre Atrial Fibrillation is controlled will follow Status: Chronic (4) Diabetes mellitus, type II Status: Chronic Priority: High (5) Hypertension Status: Chronic Priority: Medium (6) Hypothyroidism Status: Chronic Priority: Medium
[2018-04-09] MEDS: Meropenem 1 GM in Sodium Chloride 0.9% 100 ML IVPB SCH ×3 (01:52→17:20)
[2018-04-09 07:11] LABS: HEMOGLOBIN 10.5 g/dL (12.0-16.0); MEAN CELL VOLUME 89.7 fl (81.0-99.0); MEAN CORPUSCULAR HEMOGLOBIN 29.4 pg (27.0-31.0); MEAN CORPUSCULAR HGB CONC 32.8 g/dL (33.0-37.0); RBC 3.57 Mil/uL (3.80-5.20); RED CELL DISTRIBUTION WIDTH 21.1 % (11.5-14.5); WHITE BLOOD COUNT 9.9 K/uL (4.8-10.8)
[2018-04-09 07:23] LABS: BLOOD UREA NITROGEN 6 mg/dl (7-17); CALCIUM 7.5 mg/dL (8.4-10.2); GFR AFRICAN-AMERICAN > 60; GFR NON-AFRICAN AMERICAN > 60
[2018-04-09] MEDS: Albuterol-Ipratrop 3 mg / 0.5 (3 ml) UD INH SCH ×4 (07:52→19:31)
--- NOTE | 2018-04-09 08:13 | CP.PCM.PN ---
Subjective - Date & Time of Evaluation Date of Evaluation: 04/09/18 Time of Evaluation: 08:08 - Subjective Subjective: General Surgery Progress Note 87F seen at bedside for pelvic abscess likely 2/2 rectal stump leak and anterior abdominal wall abscess two days s/p abscess drainage by IR. 100 cc of thick brown fluid was drained. Patient AAO x 3 at time of visit. States that she is still having abdominal pain, improved over yesterday. Denies any other complaints or acute overnight events. Denies N/V/F/C/CP/SOB. Colostomy bag noted to be in place. Objective - Vital Signs/Intake and Output Vital Signs (last 24 hours): Temp Pulse Resp BP Pulse Ox 98.5 F 97 H 18 145/70 96 04/09/18 05:00 04/09/18 05:00 04/09/18 05:00 04/09/18 05:00 04/09/18 05:00 Intake and Output: 04/09/18 04/09/18 06:59 18:59 Intake Total 50 Output Total 440 Balance -390 - Medications Medications: Current Medications Acetaminophen (Tylenol 325mg Tab) 650 mg PO Q6H PRN PRN Reason: Pain, Mild (1-3) Last Admin: 04/07/18 16:35 Dose: 650 mg Acetaminophen (Tylenol 325mg Tab) 650 mg PO Q6H PRN PRN Reason: Fever >100.4 F Acetaminophen (Tylenol 325mg Tab) 650 mg PO Q6 PRN PRN Reason: Fever >100.4 F Albuterol/Ipratropium (Duoneb 3 Mg/0.5 Mg (3 Ml) Ud) 3 ml INH RQID [facility] Last Admin: 04/09/18 07:52 Dose: 3 ml Atorvastatin Calcium (Lipitor) 40 mg PO QPM [facility] Last Admin: 04/08/18 17:02 Dose: 40 mg Diltiazem HCl (Cardizem) 30 mg PO QID [facility] Last Admin: 04/08/18 22:02 Dose: 30 mg Enoxaparin Sodium (Lovenox) 40 mg SC DAILY [facility] PRN Reason: Protocol Last Admin: 04/08/18 08:32 Dose: 40 mg Home Med (Olopatadine Hcl [Pazeo]) 1 drop EACHEYE DAILY [facility] Last Admin: 04/08/18 12:09 Dose: Not Given Fluconazole (Diflucan Iv 400mg/200ml Ns) 200 mls @ 100 mls/hr IVPB DAILY [facility] PRN Reason: Protocol Last Admin: 04/08/18 08:30 Dose: 100 mls/hr Meropenem 1 gm/ Sodium (Chloride) 100 mls @ 100 mls/hr IVPB Q8 [facility] PRN Reason: Protocol Last Admin: 04/09/18 01:52 Dose: 100 mls/hr Insulin Human Lispro (Humalog) 0 units SC Q6H [facility] PRN Reason: Protocol Last Admin: 04/08/18 22:03 Dose: Not Given Levothyroxine Sodium (Synthroid) 175 mcg PO DAILY@0630 [facility] Last Admin: 04/08/18 05:40 Dose: 175 mcg Morphine Sulfate (Morphine) 2 mg IVP Q4H PRN PRN Reason: Pain, severe (8-10) Last Admin: 04/08/18 16:51 Dose: 2 mg Pantoprazole Sodium (Protonix Ec Tab) 40 mg PO DAILY [facility] Last Admin: 04/08/18 08:34 Dose: 40 mg Fluticasone/Salmeterol (Advair Diskus 250/50) 1 puff IH Q12 [facility] Last Admin: 04/08/18 22:01 Dose: 1 puff Tramadol HCl (Ultram) 50 mg PO TID PRN PRN Reason: Pain, moderate (4-7) Last Admin: 04/08/18 05:39 Dose: 50 mg - Labs Labs: 04/09/18 07:07 04/09/18 07:07 PT 14.9 Seconds (9.8-13.1) H 04/07/18 08:22 INR 1.3 (0.9-1.2) H 04/07/18 08:22 - Constitutional Appears: Well, Non-toxic, No Acute Distress - Head Exam Head Exam: ATRAUMATIC, NORMOCEPHALIC - GI/Abdominal Exam GI & Abdominal Exam: Soft. absent: Firm, Guarding, Rigid, Tenderness Additional comments: Colostomy intact, functioning, liquid stool in ostomy bag 250 cc of scant purulent, bañuelos colored output overnight - Neurological Exam Neurological Exam: Alert, Awake, Oriented x3 - Psychiatric Exam Psychiatric exam: Normal Affect, Normal Mood Assessment and Plan - Assessment and Plan (Free Text) Assessment: 87F with pelvic abscess likely 2/2 rectal stump leak and anterior abdominal wall abscess Plan: Afebrile, absent leukocytosis Pain meds Abx HHD Anterior abdominal wall copiously flushed with hydrogen peroxide and saline; dressed with ABD pad GNR on abdominal cx prelim, f/u final results D/w Dr. Montaño
[2018-04-09] MEDS: Fluticasone-Salmeterol 250-50mcg Diskus IH SCH (09:10)
[2018-04-09] MEDS: Fluconazole IV 400mg/200ml NS 200 ML IVPB SCH (09:13)
[2018-04-09] MEDS: Enoxaparin 40 mg Syringe SC SCH (09:14)
[2018-04-09] MEDS: Pantoprazole 40 mg EC Tab PO SCH (09:16)
[2018-04-09] MEDS: OLOPATADINE HCL EACHEYE SCH (09:16)
[2018-04-09] MEDS: Levothyroxine 175 MCG TAB PO SCH (09:17)
--- NOTE | 2018-04-09 09:20 | CP.PCM.PN ---
Subjective - Date & Time of Evaluation Date of Evaluation: 04/09/18 Time of Evaluation: :18 - Subjective Subjective: Still in ICU, awaiting bed in telemetry. Awake and alert, mood is fairly good. Drainage from abscess cavity has increased overnight and this morning. Culture from the abdominal wound growing E coli sensitive to meropenem. Gram stain from IR abscess specimen=gram positive cocci, ID pending. No real stool in colostomy since admission, only small amounts of liquid. She still complains of nausea and the urge to vomit. Minimal liquid intake orally. Vital signs have been stable. She remains afebrile. No elevated WBC, hemoglobin has dropped 2GM since admission w/o evidence of bleeding. Dependant edema still present around the abdominal wall. Bowel sounds are more well heard today. No dullness on percussion of the chest wall. Breath sounds are well heard bilaterally with increased bronchial BS in left base posteriorly. No audible wheezes, + egophony in the left base posteriorly. No dependant edema in the lower extremities. No cyanosis. Warm fingers and toes. Likely will need another CT abdomen (?contrast) to eval the size of the abscess as well as the pleural effusions and atelectasis. Will discuss this with icd 9 coder and surgery. Still up for transfer to telemetry. Mobilize as tolerated. Continue the albuterol/ipratropium QID, but stop the Advair (too much adrenergic stimulation). Add budesonide via nebulized OD and use albuterol on a PRN basis as well. Objective - Vital Signs/Intake and Output Vital Signs (last 24 hours): Temp Pulse Resp BP Pulse Ox 98.3 F 116 H 20 138/60 100 04/09/18 08:00 04/09/18 09:11 04/09/18 09:11 04/09/18 09:11 04/09/18 09:11 Intake and Output: 04/08/18 04/09/18 23:59 11:59 Intake Total 174 120 Output Total 250 400 Balance -76 -280 - Medications Medications: Current Medications Acetaminophen (Tylenol 325mg Tab) 650 mg PO Q6H PRN PRN Reason: Pain, Mild (1-3) Last Admin: 04/07/18 16:35 Dose: 650 mg Acetaminophen (Tylenol 325mg Tab) 650 mg PO Q6H PRN PRN Reason: Fever >100.4 F Acetaminophen (Tylenol 325mg Tab) 650 mg PO Q6 PRN PRN Reason: Fever >100.4 F Albuterol/Ipratropium (Duoneb 3 Mg/0.5 Mg (3 Ml) Ud) 3 ml INH RQID [facility] Last Admin: 04/09/18 07:52 Dose: 3 ml Atorvastatin Calcium (Lipitor) 40 mg PO QPM [facility] Last Admin: 04/08/18 17:02 Dose: 40 mg Diltiazem HCl (Cardizem) 30 mg PO QID [facility] Last Admin: 04/09/18 09:11 Dose: 30 mg Enoxaparin Sodium (Lovenox) 40 mg SC DAILY [facility] PRN Reason: Protocol Last Admin: 04/09/18 09:14 Dose: 40 mg Home Med (Olopatadine Hcl [Pazeo]) 1 drop EACHEYE DAILY [facility] Last Admin: 04/09/18 09:16 Dose: Not Given Fluconazole (Diflucan Iv 400mg/200ml Ns) 200 mls @ 100 mls/hr IVPB DAILY [facility] PRN Reason: Protocol Last Admin: 04/09/18 09:13 Dose: 100 mls/hr Meropenem 1 gm/ Sodium (Chloride) 100 mls @ 100 mls/hr IVPB Q8 [facility] PRN Reason: Protocol Last Admin: 04/09/18 09:15 Dose: 100 mls/hr Insulin Human Lispro (Humalog) 0 units SC Q6H [facility] PRN Reason: Protocol Last Admin: 04/08/18 22:03 Dose: Not Given Levothyroxine Sodium (Synthroid) 175 mcg PO DAILY@0630 [facility] Last Admin: 04/09/18 09:17 Dose: 175 mcg Morphine Sulfate (Morphine) 2 mg IVP Q4H PRN PRN Reason: Pain, severe (8-10) Last Admin: 04/08/18 16:51 Dose: 2 mg Pantoprazole Sodium (Protonix Ec Tab) 40 mg PO DAILY [facility] Last Admin: 04/09/18 09:16 Dose: 40 mg Fluticasone/Salmeterol (Advair Diskus 250/50) 1 puff IH Q12 [facility] Last Admin: 04/09/18 09:10 Dose: 1 puff Tramadol HCl (Ultram) 50 mg PO TID PRN PRN Reason: Pain, moderate (4-7) Last Admin: 04/08/18 05:39 Dose: 50 mg - Labs Labs: 04/09/18 07:07 04/09/18 07:07 PT 14.9 Seconds (9.8-13.1) H 04/07/18 08:22 INR 1.3 (0.9-1.2) H 04/07/18 08:22 Assessment and Plan (1) Asthma Status: Chronic (2) Pelvic abscess Status: Acute (3) Atelectasis Status: Acute (4) BAR (obstructive sleep apnea) Status: Chronic (5) Pleural effusion Status: Inactive
[2018-04-09] MEDS ORDERED: Albuterol 0.083% Inhal Sol (2.5 mg/3 mL) UD INH PRN (09:35)
[2018-04-09] MEDS ORDERED: Magnesium Sulfate 2 gm/50 ml 2 GM/50 ML BAG IVPB ONE (11:30)
[2018-04-09] MEDS: Insulin Lispro (humaLOG) 100 Units/ml Inj SC SCH ×3 (13:14→21:48)
--- NOTE | 2018-04-09 14:39 | CP.PCM.PN ---
Subjective - Date & Time of Evaluation Date of Evaluation: 04/09/18 Time of Evaluation: 14:00 - Subjective Subjective: Pt is afebrile in good spirits today compared to previous days mild abd pain has sl nausea poor PO intake has more drainage from Pigtail today- light brownish , purulent minimal stool in Colostomy denies CP no SOB Objective - Vital Signs/Intake and Output Vital Signs (last 24 hours): Temp Pulse Resp BP Pulse Ox 98.6 F 106 H 16 129/83 100 04/09/18 12:00 04/09/18 13:21 04/09/18 13:21 04/09/18 13:21 04/09/18 13:21 Intake and Output: 04/09/18 04/09/18 06:59 18:59 Intake Total 50 620 Output Total 440 Balance -390 620 - Medications Medications: Current Medications Acetaminophen (Tylenol 325mg Tab) 650 mg PO Q6H PRN PRN Reason: Pain, Mild (1-3) Last Admin: 04/07/18 16:35 Dose: 650 mg Acetaminophen (Tylenol 325mg Tab) 650 mg PO Q6H PRN PRN Reason: Fever >100.4 F Acetaminophen (Tylenol 325mg Tab) 650 mg PO Q6 PRN PRN Reason: Fever >100.4 F Albuterol Sulfate (Albuterol 0.083% Inhal [place] (2.5 Mg/3 Ml) Ud) 2.5 mg INH RQ4 PRN PRN Reason: Shortness of Breath Albuterol/Ipratropium (Duoneb 3 Mg/0.5 Mg (3 Ml) Ud) 3 ml INH RQID [facility] Last Admin: 04/09/18 10:59 Dose: 3 ml Atorvastatin Calcium (Lipitor) 40 mg PO QPM [facility] Last Admin: 04/08/18 17:02 Dose: 40 mg Budesonide (Pulmicort Respules) 0.25 mg INH RBID [facility] Cyanocobalamin (Vitamin B12 1000 Mcg/Ml Inj) 1,000 mcg IM DAILY [facility] Stop: 04/11/18 09:01 Last Admin: 04/09/18 13:22 Dose: 1,000 mcg Diltiazem HCl (Cardizem) 30 mg PO QID [facility] Last Admin: 04/09/18 13:21 Dose: 30 mg Enoxaparin Sodium (Lovenox) 40 mg SC DAILY [facility] PRN Reason: Protocol Last Admin: 04/09/18 09:14 Dose: 40 mg Home Med (Olopatadine Hcl [Pazeo]) 1 drop EACHEYE DAILY [facility] Last Admin: 04/09/18 09:16 Dose: Not Given Fluconazole (Diflucan Iv 400mg/200ml Ns) 200 mls @ 100 mls/hr IVPB DAILY [facility] PRN Reason: Protocol Last Admin: 04/09/18 09:13 Dose: 100 mls/hr Meropenem 1 gm/ Sodium (Chloride) 100 mls @ 100 mls/hr IVPB Q8 [facility] PRN Reason: Protocol Last Admin: 04/09/18 09:15 Dose: 100 mls/hr Insulin Human Lispro (Humalog) 0 units SC Q6H [facility] PRN Reason: Protocol Last Admin: 04/09/18 13:14 Dose: Not Given Levothyroxine Sodium (Synthroid) 175 mcg PO DAILY@0630 [facility] Last Admin: 04/09/18 09:17 Dose: 175 mcg Morphine Sulfate (Morphine) 2 mg IVP Q4H PRN PRN Reason: Pain, severe (8-10) Last Admin: 04/08/18 16:51 Dose: 2 mg Pantoprazole Sodium (Protonix Ec Tab) 40 mg PO DAILY [facility] Last Admin: 04/09/18 09:16 Dose: 40 mg Tramadol HCl (Ultram) 50 mg PO TID PRN PRN Reason: Pain, moderate (4-7) Last Admin: 04/08/18 05:39 Dose: 50 mg - Labs Labs: 04/09/18 07:07 04/09/18 07:07 PT 14.9 Seconds (9.8-13.1) H 04/07/18 08:22 INR 1.3 (0.9-1.2) H 04/07/18 08:22 - Constitutional Appears: alert, oriented, not in distress - Head Exam Head Exam: ATRAUMATIC, NORMAL INSPECTION, NORMOCEPHALIC - Eye Exam Eye Exam: EOMI, Normal appearance Pupil Exam: NORMAL ACCOMODATION - ENT Exam ENT Exam: Mucous Membranes Dry, Normal External Ear Exam - Neck Exam Neck Exam: Full ROM. absent: Meningismus - Respiratory Exam Respiratory Exam: Rales, Rhonchi, NORMAL BREATHING PATTERN. absent: Wheezes, Respiratory Distress - Cardiovascular Exam Cardiovascular Exam: Irregular Rhythm, +S1, +S2 - GI/Abdominal Exam GI & Abdominal Exam: Soft, Tenderness (mild lower abd tenderness), Normal Bowel Sounds Additional comments: Surgical Wound with 2 small area of dehiscence draining purulent material Left Colostomy Right pigtail catheter - Extremities Exam Extremities Exam: Full ROM, Normal Capillary Refill. absent: Calf Tenderness, Pedal Edema - Back Exam Back Exam: Full ROM. absent: CVA tenderness (L), CVA tenderness (R) - Neurological Exam Neurological Exam: Alert, Awake, CN II-XII Intact, Oriented x3 - Psychiatric Exam Psychiatric exam: normal affect/mood - Skin Skin Exam: Dry, Normal Color, Warm Assessment and Plan - Assessment and Plan (Free Text) Assessment: 87 y/o lady , well known to the Hospitalist team from previous admission last month. She had Colon Perforation after Colonoscopy and underwent Sigmoid Resection and Colostomy. She was d/c to a [facility] on 03/05. She came back because of abdominal pain, chills and purulent drainage from her surgical wound. CT of the abdomen/Pelvis: Large pelvic abscess collection closely associated with the rectal stump raising suspicion for leak. LEFT lower quadrant colostomy with postsurgical changes in the abdominal and pelvic wall. Small amount of fluid in the abdominal and pelvic wall with inflammatory stranding. No significant drainable fluid collection or abscess. Diverticulosis. Bilateral pleural effusions with overlying compressive atelectasis or infiltrate. Cholecystectomy. LEFT renal cysts. No followup necessary. Probable splenic cyst. No followup necessary. Small pericardial effusion (1) Sepsis sec to Pelvic Abscess and Abdominal Wound Abscess s/p CT guided Incision and Drainage and placement of pigtail catheter done by IR -cont Meropenem and Diflucan - ID consulted- Dr Garcia -Wound c/s : E Colis ESBL - Blood c/s: neg so far -Surgery consulted - rec IR Drainage of abscess- initially drained about 120 ml now more drainage coming out -Pain mgmt - Pigtail cath draining brownish , purulent material - 250 ml overnight (2) Abdominal wall abscess at site of surgical wound Status: Acute 2 small areas of dehiscence noted draining purulent material (3) Diabetes mellitus, type II Status: Chronic Priority: High accucheck with coverage (4) CHF (congestive heart failure), chronic diastolic hold off on Losaratan and Lasix for now as pt has low BP (5) Atrial fibrillation, chronic with RVR Status: Chronic off anticoag due to her GI bleed cont Cardizem bec of RVR Cardio consulted - Dr Arriaga (6) Asthma ( mild intermittent ) chronic COPD (chronic obstructive pulmonary disease), chronic Atelectasis/Pleural Effusion seen on CT Pulm consulted- Dr Macario Hilario treatments changed Advair to Pulmicort (7) Hypertension Status: Chronic Priority: Medium cont Cardizem hold Lasix and LOsaratn for now (8) Hypothyroidism Status: Chronic Priority: Medium cont Levothyroxine check TSH (9) DVT prophylaxis Status: Acute Lovenox -
--- NOTE | 2018-04-09 15:59 | CP.PCM.PN ---
Subjective - Date & Time of Evaluation Date of Evaluation: 04/09/18 Time of Evaluation: 08:00 - Subjective Subjective: + ESBL E coli from abd on Merrem Objective - Vital Signs/Intake and Output Vital Signs (last 24 hours): Temp Pulse Resp BP Pulse Ox 98.6 F 106 H 16 129/83 100 04/09/18 12:00 04/09/18 13:21 04/09/18 13:21 04/09/18 13:21 04/09/18 13:21 Intake and Output: 04/09/18 04/09/18 06:59 18:59 Intake Total 50 620 Output Total 440 Balance -390 620 - Medications Medications: Current Medications Acetaminophen (Tylenol 325mg Tab) 650 mg PO Q6H PRN PRN Reason: Pain, Mild (1-3) Last Admin: 04/07/18 16:35 Dose: 650 mg Acetaminophen (Tylenol 325mg Tab) 650 mg PO Q6H PRN PRN Reason: Fever >100.4 F Acetaminophen (Tylenol 325mg Tab) 650 mg PO Q6 PRN PRN Reason: Fever >100.4 F Albuterol Sulfate (Albuterol 0.083% Inhal [place] (2.5 Mg/3 Ml) Ud) 2.5 mg INH RQ4 PRN PRN Reason: Shortness of Breath Albuterol/Ipratropium (Duoneb 3 Mg/0.5 Mg (3 Ml) Ud) 3 ml INH RQID [facility] Last Admin: 04/09/18 15:34 Dose: 3 ml Atorvastatin Calcium (Lipitor) 40 mg PO QPM [facility] Last Admin: 04/08/18 17:02 Dose: 40 mg Budesonide (Pulmicort Respules) 0.25 mg INH RBID [facility] Cyanocobalamin (Vitamin B12 1000 Mcg/Ml Inj) 1,000 mcg IM DAILY [facility] Stop: 04/11/18 09:01 Last Admin: 04/09/18 13:22 Dose: 1,000 mcg Diltiazem HCl (Cardizem) 30 mg PO QID [facility] Last Admin: 04/09/18 13:21 Dose: 30 mg Enoxaparin Sodium (Lovenox) 40 mg SC DAILY [facility] PRN Reason: Protocol Last Admin: 04/09/18 09:14 Dose: 40 mg Home Med (Olopatadine Hcl [Pazeo]) 1 drop EACHEYE DAILY [facility] Last Admin: 04/09/18 09:16 Dose: Not Given Fluconazole (Diflucan Iv 400mg/200ml Ns) 200 mls @ 100 mls/hr IVPB DAILY [facility] PRN Reason: Protocol Last Admin: 04/09/18 09:13 Dose: 100 mls/hr Meropenem 1 gm/ Sodium (Chloride) 100 mls @ 100 mls/hr IVPB Q8 [facility] PRN Reason: Protocol Last Admin: 04/09/18 09:15 Dose: 100 mls/hr Insulin Human Lispro (Humalog) 0 units SC Q6H [facility] PRN Reason: Protocol Last Admin: 04/09/18 13:14 Dose: Not Given Levothyroxine Sodium (Synthroid) 175 mcg PO DAILY@0630 [facility] Last Admin: 04/09/18 09:17 Dose: 175 mcg Morphine Sulfate (Morphine) 2 mg IVP Q4H PRN PRN Reason: Pain, severe (8-10) Last Admin: 04/08/18 16:51 Dose: 2 mg Pantoprazole Sodium (Protonix Ec Tab) 40 mg PO DAILY [facility] Last Admin: 04/09/18 09:16 Dose: 40 mg Tramadol HCl (Ultram) 50 mg PO TID PRN PRN Reason: Pain, moderate (4-7) Last Admin: 04/08/18 05:39 Dose: 50 mg - Labs Labs: 04/09/18 07:07 04/09/18 07:07 PT 14.9 Seconds (9.8-13.1) H 04/07/18 08:22 INR 1.3 (0.9-1.2) H 04/07/18 08:22
[2018-04-09] MEDS: Budesonide 0.25 mg/2 ml Inhal Susp UD INH SCH (19:31)
[2018-04-10] MEDS: Meropenem 1 GM in Sodium Chloride 0.9% 100 ML IVPB SCH ×3 (00:36→17:05)
[2018-04-10] MEDS: Insulin Lispro (humaLOG) 100 Units/ml Inj SC SCH ×4 (05:13→21:21)
[2018-04-10] MEDS: Levothyroxine 175 MCG TAB PO SCH (06:42)
[2018-04-10 06:54] LABS: BASO % 0.5 % (0.0-2.0); EOS # 0.1 K/uL (0.0-0.7); EOS % 0.9 % (0.0-4.0); HEMOGLOBIN 10.3 g/dL (12.0-16.0); LYMPH # 2.8 K/uL (1.0-4.3); MEAN CELL VOLUME 90.3 fl (81.0-99.0); MEAN CORPUSCULAR HEMOGLOBIN 29.4 pg (27.0-31.0); MEAN CORPUSCULAR HGB CONC 32.6 g/dL (33.0-37.0); MONO # 0.9 K/uL (0.0-0.8); MONO % 11.1 % (0.0-10.0); NEUT # 4.4 K/uL (1.8-7.0); NEUT % 53.5 % (50.0-75.0); NRBC % 0.1 % (0.0-0.0); RBC 3.48 Mil/uL (3.80-5.20); RED CELL DISTRIBUTION WIDTH 21.4 % (11.5-14.5); WHITE BLOOD COUNT 8.2 K/uL (4.8-10.8)
[2018-04-10 07:14] LABS: ALB/GLOB RATIO 0.6 (1.0-2.1); ALT/SGPT 24 U/L (9-52); AST/SGOT 33 U/L (14-36); BLOOD UREA NITROGEN 4 mg/dl (7-17); CALCIUM 7.5 mg/dL (8.4-10.2); GFR AFRICAN-AMERICAN > 60; GFR NON-AFRICAN AMERICAN > 60
[2018-04-10] MEDS: Albuterol-Ipratrop 3 mg / 0.5 (3 ml) UD INH SCH ×4 (07:23→19:06)
[2018-04-10] MEDS: Budesonide 0.25 mg/2 ml Inhal Susp UD INH SCH ×2 (07:23→19:06)
[2018-04-10] MEDS ORDERED: Potassium Phosphate 15 MMOLE in Sodium Chloride 0.9% 250 ML IV ONE (07:26)
--- NOTE | 2018-04-10 07:50 | CP.PCM.PN ---
Subjective - Date & Time of Evaluation Date of Evaluation: 04/10/18 Time of Evaluation: 07:50 - Subjective Subjective: General Surgery Progress Note 87F seen and examined this AM. Patient is 3 days s/p abscess drainage by IR. No acute events overnight. Abdominal pain improving. Dressing clean/dry/intact. Colostomy bag in place. Objective - Vital Signs/Intake and Output Vital Signs (last 24 hours): Temp Pulse Resp BP Pulse Ox 98.2 F 99 H 13 120/65 96 04/10/18 04:00 04/10/18 06:00 04/10/18 06:00 04/10/18 06:00 04/10/18 06:00 Intake and Output: 04/10/18 04/10/18 06:59 18:59 Intake Total 120 Balance 120 - Medications Medications: Current Medications Acetaminophen (Tylenol 325mg Tab) 650 mg PO Q6H PRN PRN Reason: Pain, Mild (1-3) Last Admin: 04/07/18 16:35 Dose: 650 mg Acetaminophen (Tylenol 325mg Tab) 650 mg PO Q6H PRN PRN Reason: Fever >100.4 F Acetaminophen (Tylenol 325mg Tab) 650 mg PO Q6 PRN PRN Reason: Fever >100.4 F Albuterol Sulfate (Albuterol 0.083% Inhal [place] (2.5 Mg/3 Ml) Ud) 2.5 mg INH RQ4 PRN PRN Reason: Shortness of Breath Albuterol/Ipratropium (Duoneb 3 Mg/0.5 Mg (3 Ml) Ud) 3 ml INH RQID [facility] Last Admin: 04/10/18 07:23 Dose: 3 ml Atorvastatin Calcium (Lipitor) 40 mg PO QPM [facility] Last Admin: 04/09/18 17:15 Dose: 40 mg Budesonide (Pulmicort Respules) 0.25 mg INH RBID [facility] Last Admin: 04/10/18 07:23 Dose: 0.25 mg Cyanocobalamin (Vitamin B12 1000 Mcg/Ml Inj) 1,000 mcg IM DAILY [facility] Stop: 04/11/18 09:01 Last Admin: 04/09/18 13:22 Dose: 1,000 mcg Diltiazem HCl (Cardizem) 30 mg PO QID [facility] Last Admin: 04/09/18 21:04 Dose: 30 mg Enoxaparin Sodium (Lovenox) 40 mg SC DAILY [facility] PRN Reason: Protocol Last Admin: 04/09/18 09:14 Dose: 40 mg Home Med (Olopatadine Hcl [Pazeo]) 1 drop EACHEYE DAILY [facility] Last Admin: 04/09/18 09:16 Dose: Not Given Fluconazole (Diflucan Iv 400mg/200ml Ns) 200 mls @ 100 mls/hr IVPB DAILY [facility] PRN Reason: Protocol Last Admin: 04/09/18 09:13 Dose: 100 mls/hr Meropenem 1 gm/ Sodium (Chloride) 100 mls @ 100 mls/hr IVPB Q8 [facility] PRN Reason: Protocol Last Admin: 04/10/18 00:36 Dose: 100 mls/hr Potassium Phosphate 15 mmole/ (Sodium Chloride) 255 mls @ 65 mls/hr IV ONCE ONE Stop: 04/10/18 11:21 Insulin Human Lispro (Humalog) 0 units SC Q6H [facility] PRN Reason: Protocol Last Admin: 04/10/18 05:13 Dose: Not Given Levothyroxine Sodium (Synthroid) 175 mcg PO DAILY@0630 [facility] Last Admin: 04/10/18 06:42 Dose: 175 mcg Morphine Sulfate (Morphine) 2 mg IVP Q4H PRN PRN Reason: Pain, severe (8-10) Last Admin: 04/08/18 16:51 Dose: 2 mg Pantoprazole Sodium (Protonix Ec Tab) 40 mg PO DAILY [facility] Last Admin: 04/09/18 09:16 Dose: 40 mg Tramadol HCl (Ultram) 50 mg PO TID PRN PRN Reason: Pain, moderate (4-7) Last Admin: 04/08/18 05:39 Dose: 50 mg - Labs Labs: 04/10/18 06:40 04/10/18 06:40 PT 14.9 Seconds (9.8-13.1) H 04/07/18 08:22 INR 1.3 (0.9-1.2) H 04/07/18 08:22 - Constitutional Appears: Well, Non-toxic, No Acute Distress - Head Exam Head Exam: ATRAUMATIC, NORMOCEPHALIC - Eye Exam Eye Exam: EOMI - Respiratory Exam Respiratory Exam: NORMAL BREATHING PATTERN - GI/Abdominal Exam GI & Abdominal Exam: Soft. absent: Guarding Additional comments: Colostomy intact, functioning, liquid stool in ostomy bag 35cc of scant purulence in IR drain - Neurological Exam Neurological Exam: Alert, Awake, Oriented x3 - Psychiatric Exam Psychiatric exam: Normal Affect, Normal Mood Assessment and Plan - Assessment and Plan (Free Text) Assessment: 87F with pelvic abscess likely 2/2 rectal stump leak and anterior abdominal wall abscess Plan: Afebrile, absent leukocytosis Pain meds Abx HHD Anterior abdominal wall copiously flushed with hydrogen peroxide and saline; dressed with sterile gauze Continue to monitor I/O E.coli abdominal cx D/w Dr. Montaño
--- NOTE | 2018-04-10 08:28 | PN ---
DATE: 04/09/2018 SUBJECTIVE: The patient was seen in the ICU at [place]. Vital signs are noted to be good with a pulse somewhat in 100-110. The white count is now normal at 9.9 and SMA-6 was normal. The drain is in left lower quadrant and mostly is 150 for the last 24 hours. It is certainly thick, purulent. The abdomen is much softer and she feels better,although she still has nausea and is not very hungry. The ostotomy is not putting out much, but it is nice and pink. The wound itself is examined, then there is much less drainage. We will start to pack it, possibly place a Yoli depending on further issues. Peter Montaño MD
[2018-04-10] MEDS: Enoxaparin 40 mg Syringe SC SCH (08:47)
[2018-04-10] MEDS: Pantoprazole 40 mg EC Tab PO SCH (08:47)
[2018-04-10] MEDS: Fluconazole IV 400mg/200ml NS 200 ML IVPB SCH (08:50)
--- NOTE | 2018-04-10 09:03 | CP.PCM.PN ---
Subjective - Date & Time of Evaluation Date of Evaluation: 04/10/18 Time of Evaluation: 09:00 - Subjective Subjective: No fever complains of sl nausea and poor appetite denies abd pain noted brownish purulent drainage ( similar to the pigtail drainage) soiling her bed padding minimal drainage in pigtail approx 35 ml minimal stool in Colostomy denies CP no SOB Objective - Vital Signs/Intake and Output Vital Signs (last 24 hours): Temp Pulse Resp BP Pulse Ox 97.9 F 111 H 12 127/69 98 04/10/18 08:00 04/10/18 08:47 04/10/18 08:00 04/10/18 08:47 04/10/18 08:47 Intake and Output: 04/10/18 04/10/18 06:59 18:59 Intake Total 120 Balance 120 - Medications Medications: Current Medications Acetaminophen (Tylenol 325mg Tab) 650 mg PO Q6H PRN PRN Reason: Pain, Mild (1-3) Last Admin: 04/07/18 16:35 Dose: 650 mg Acetaminophen (Tylenol 325mg Tab) 650 mg PO Q6H PRN PRN Reason: Fever >100.4 F Acetaminophen (Tylenol 325mg Tab) 650 mg PO Q6 PRN PRN Reason: Fever >100.4 F Albuterol Sulfate (Albuterol 0.083% Inhal [place] (2.5 Mg/3 Ml) Ud) 2.5 mg INH RQ4 PRN PRN Reason: Shortness of Breath Albuterol/Ipratropium (Duoneb 3 Mg/0.5 Mg (3 Ml) Ud) 3 ml INH RQID [facility] Last Admin: 04/10/18 07:23 Dose: 3 ml Atorvastatin Calcium (Lipitor) 40 mg PO QPM [facility] Last Admin: 04/09/18 17:15 Dose: 40 mg Budesonide (Pulmicort Respules) 0.25 mg INH RBID [facility] Last Admin: 04/10/18 07:23 Dose: 0.25 mg Cyanocobalamin (Vitamin B12 1000 Mcg/Ml Inj) 1,000 mcg IM DAILY [facility] Stop: 04/11/18 09:01 Last Admin: 04/10/18 08:52 Dose: 1,000 mcg Diltiazem HCl (Cardizem) 30 mg PO QID [facility] Last Admin: 04/10/18 08:47 Dose: 30 mg Enoxaparin Sodium (Lovenox) 40 mg SC DAILY [facility] PRN Reason: Protocol Last Admin: 04/10/18 08:47 Dose: 40 mg Home Med (Olopatadine Hcl [Pazeo]) 1 drop EACHEYE DAILY [facility] Last Admin: 04/09/18 09:16 Dose: Not Given Fluconazole (Diflucan Iv 400mg/200ml Ns) 200 mls @ 100 mls/hr IVPB DAILY [facility] PRN Reason: Protocol Last Admin: 04/10/18 08:50 Dose: 100 mls/hr Meropenem 1 gm/ Sodium (Chloride) 100 mls @ 100 mls/hr IVPB Q8 [facility] PRN Reason: Protocol Last Admin: 04/10/18 08:51 Dose: 100 mls/hr Potassium Phosphate 15 mmole/ (Sodium Chloride) 255 mls @ 65 mls/hr IV ONCE ONE Stop: 04/10/18 11:21 Insulin Human Lispro (Humalog) 0 units SC Q6H [facility] PRN Reason: Protocol Last Admin: 04/10/18 05:13 Dose: Not Given Levothyroxine Sodium (Synthroid) 175 mcg PO DAILY@0630 [facility] Last Admin: 04/10/18 06:42 Dose: 175 mcg Morphine Sulfate (Morphine) 2 mg IVP Q4H PRN PRN Reason: Pain, severe (8-10) Last Admin: 04/08/18 16:51 Dose: 2 mg Pantoprazole Sodium (Protonix Ec Tab) 40 mg PO DAILY [facility] Last Admin: 04/10/18 08:47 Dose: 40 mg Tramadol HCl (Ultram) 50 mg PO TID PRN PRN Reason: Pain, moderate (4-7) Last Admin: 04/08/18 05:39 Dose: 50 mg - Labs Labs: 04/10/18 06:40 04/10/18 06:40 PT 14.9 Seconds (9.8-13.1) H 04/07/18 08:22 INR 1.3 (0.9-1.2) H 04/07/18 08:22 - Constitutional Appears: alert, oriented, not in distress - Head Exam Head Exam: ATRAUMATIC, NORMAL INSPECTION, NORMOCEPHALIC - Eye Exam Eye Exam: EOMI, Normal appearance Pupil Exam: NORMAL ACCOMODATION - ENT Exam ENT Exam: Mucous Membranes Dry, Normal External Ear Exam - Neck Exam Neck Exam: Full ROM. absent: Meningismus - Respiratory Exam Respiratory Exam: Rales, Rhonchi, NORMAL BREATHING PATTERN. absent: Wheezes, Respiratory Distress - Cardiovascular Exam Cardiovascular Exam: Irregular Rhythm, +S1, +S2 - GI/Abdominal Exam GI & Abdominal Exam: Soft, Tenderness (mild lower abd tenderness), Normal Bowel Sounds Additional comments: Surgical Wound with 2 small area of dehiscence draining purulent material Left Colostomy with minimal stool Right pigtail catheter: today minimal drainage Extrenal Genitalia: examined ext genitalia and rectum as we noted brownish discharge sinilar to pigtail catheter drainage on pt's bedsheet noted drainage coming from vagina ( unclear source if from vagina or rectum- as pt refuses vaginal exam due to pain) - Extremities Exam Extremities Exam: Full ROM, Normal Capillary Refill. absent: Calf Tenderness, Pedal Edema - Back Exam Back Exam: Full ROM. absent: CVA tenderness (L), CVA tenderness (R) - Neurological Exam Neurological Exam: Alert, Awake, CN II-XII Intact, Oriented x3 - Psychiatric Exam Psychiatric exam: normal affect/mood - Skin Skin Exam: Dry, Normal Color, Warm Assessment and Plan - Assessment and Plan (Free Text) Assessment: 87 y/o lady , well known to the Hospitalist team from previous admission last month. She had Colon Perforation after Colonoscopy and underwent Sigmoid Resection and Colostomy. She was d/c to a [facility] on 03/05. She came back because of abdominal pain, chills and purulent drainage from her surgical wound. CT of the abdomen/Pelvis: Large pelvic abscess collection closely associated with the rectal stump raising suspicion for leak. LEFT lower quadrant colostomy with postsurgical changes in the abdominal and pelvic wall. Small amount of fluid in the abdominal and pelvic wall with inflammatory stranding. No significant drainable fluid collection or abscess. Diverticulosis. Bilateral pleural effusions with overlying compressive atelectasis or infiltrate. Cholecystectomy. LEFT renal cysts. No followup necessary. Probable splenic cyst. No followup necessary. Small pericardial effusion (1) Sepsis sec to Pelvic Abscess and Abdominal Wound Abscess s/p CT guided Incision and Drainage and placement of pigtail catheter done by IR -cont Meropenem and Diflucan - ID consulted- Dr Garcia -Wound c/s : E Coli ESBL - Blood c/s: neg so far -Surgery consulted - rec IR Drainage of abscess -Pain mgt - Pigtail cath draining brownish , purulent material - 35 ml overnight however also noted drainage from rectal vs vaginal area - pt's padding is ( I cannot confirm on examination source of drainage but it seem like its vaginal ) ? fistula -will discuss with Surgery , ? need to rpt CT scan (2) Abdominal wall abscess at site of surgical wound Status: Acute 2 small areas of dehiscence noted draining purulent material (3) Diabetes mellitus, type II Status: Chronic Priority: High accucheck with coverage (4) CHF (congestive heart failure), chronic diastolic restart Losartan (5) Atrial fibrillation, chronic with RVR Status: Chronic off anticoag due to her GI bleed cont Cardizem bec of RVR Cardio consulted - Dr Arriaga (6) Asthma ( mild intermittent ) chronic COPD (chronic obstructive pulmonary disease), chronic Atelectasis/Pleural Effusion seen on CT Pulm consulted- Dr Macario Hilario treatments changed Advair to Pulmicort (7) Hypertension Status: Chronic Priority: Medium cont Cardizem restart Losartan (8) Hypothyroidism Status: Chronic Priority: Medium cont Levothyroxine check TSH (9) DVT prophylaxis Status: Acute Lovenox -
--- NOTE | 2018-04-10 10:09 | RAD ---
HISTORY: cough COMPARISON: Chest radiograph dated 04/06/2018 FINDINGS: LUNGS: Pulmonary vascular congestion. Bibasilar atelectasis. PLEURA: Questionable left pleural effusion versus overlying soft tissue. No pneumothorax apparent. CARDIOVASCULAR: Atherosclerotic aortic calcifications. Cardiomediastinal silhouette stably enlarged. Heavy mitral annular calcification. OSSEOUS STRUCTURES: Unchanged. VISUALIZED UPPER ABDOMEN: Normal. OTHER FINDINGS: Right upper extremity PICC, unchanged. IMPRESSION: Pulmonary vascular congestion with bibasilar atelectasis. Questionable small pleural effusion versus overlying soft tissue.
--- NOTE | 2018-04-10 11:19 | CP.PCM.PN ---
Subjective - Date & Time of Evaluation Date of Evaluation: 04/10/18 Time of Evaluation: 11:18 - Subjective Subjective: The patient was seen on rounds in the intensive care unit seated in her bedside chair. She was asleep initially but awakened easily. She appears alert and well- oriented. Her vital signs have remained stable and she continues to be afebrile. Surgical evaluation from the day before was reviewed. Chest x-ray shows some continued retrocardiac density with an indistinct left hemidiaphragm suggesting possible effusion and/or atelectasis. The right costophrenic angle is also blunted. Lab data was reviewed this morning and the WBCs remain within normal range. Hemoglobin is stable at 10.3 which is a 2 point drop from the time of admission. Electrolytes appear grossly normal with a glucose of 88 fasting. Proteins are significantly decreased with a total protein of 5.5 and an albumin of 2.0. Cultures are its from the needle aspiration performed on have grown Proteus mirabilis which is also sensitive to meropenem. Drainage from the suture line appears to have been decreasing and the drainage from the abscess cavity was 250 ML's over the last 24 hours. There has been reported oxygen desaturations overnight while asleep. There is no dependent edema at the ankles. There is still edema in the flanks and in the back of the lower abdomen. Bowel sounds are present but minimal brownish liquid is seen in her colostomy bag. The abdomen is less tender than before. There is dullness to percussion at the left base posteriorly with diminished breath sounds in this area. Bronchial breathing continues to be present as well in this same area. Few dry rales are heard in the lower lobes and there is no audible wheezing. Heart sounds are well heard and the rhythm remains irregular. Current antibiotic regimen will continue. Patient's family member will bring her nasal CPAP into the hospital from home for overnight use. Continue aerosol therapy and institute incentive spirometry as well. Mobilization with patient being out of bed as much as possible will also help. Follow-up CT scan to assess the effectiveness of the catheter drainage from the abscess. Objective - Vital Signs/Intake and Output Vital Signs (last 24 hours): Temp Pulse Resp BP Pulse Ox 97.9 F 111 H 12 127/69 98 04/10/18 08:00 04/10/18 08:47 04/10/18 08:00 04/10/18 08:47 04/10/18 08:47 Intake and Output: 04/09/18 04/10/18 23:59 11:59 Intake Total 276 114 Output Total 35 Balance 241 114 - Medications Medications: Current Medications Acetaminophen (Tylenol 325mg Tab) 650 mg PO Q6H PRN PRN Reason: Pain, Mild (1-3) Last Admin: 04/07/18 16:35 Dose: 650 mg Acetaminophen (Tylenol 325mg Tab) 650 mg PO Q6H PRN PRN Reason: Fever >100.4 F Acetaminophen (Tylenol 325mg Tab) 650 mg PO Q6 PRN PRN Reason: Fever >100.4 F Albuterol Sulfate (Albuterol 0.083% Inhal [place] (2.5 Mg/3 Ml) Ud) 2.5 mg INH RQ4 PRN PRN Reason: Shortness of Breath Albuterol/Ipratropium (Duoneb 3 Mg/0.5 Mg (3 Ml) Ud) 3 ml INH RQID [facility] Last Admin: 04/10/18 11:03 Dose: 3 ml Atorvastatin Calcium (Lipitor) 40 mg PO QPM [facility] Last Admin: 04/09/18 17:15 Dose: 40 mg Budesonide (Pulmicort Respules) 0.25 mg INH RBID [facility] Last Admin: 04/10/18 07:23 Dose: 0.25 mg Cyanocobalamin (Vitamin B12 1000 Mcg/Ml Inj) 1,000 mcg IM DAILY [facility] Stop: 04/11/18 09:01 Last Admin: 04/10/18 08:52 Dose: 1,000 mcg Diltiazem HCl (Cardizem) 30 mg PO QID [facility] Last Admin: 04/10/18 08:47 Dose: 30 mg Enoxaparin Sodium (Lovenox) 40 mg SC DAILY [facility] PRN Reason: Protocol Last Admin: 04/10/18 08:47 Dose: 40 mg Fluconazole (Diflucan Iv 400mg/200ml Ns) 200 mls @ 100 mls/hr IVPB DAILY [facility] PRN Reason: Protocol Last Admin: 04/10/18 08:50 Dose: 100 mls/hr Meropenem 1 gm/ Sodium (Chloride) 100 mls @ 100 mls/hr IVPB Q8 [facility] PRN Reason: Protocol Last Admin: 04/10/18 08:51 Dose: 100 mls/hr Potassium Phosphate 15 mmole/ (Sodium Chloride) 255 mls @ 65 mls/hr IV ONCE ONE Stop: 04/10/18 11:21 Last Admin: 04/10/18 10:38 Dose: 65 mls/hr Insulin Human Lispro (Humalog) 0 units SC Q6H [facility] PRN Reason: Protocol Last Admin: 04/10/18 05:13 Dose: Not Given Levothyroxine Sodium (Synthroid) 175 mcg PO DAILY@0630 [facility] Last Admin: 04/10/18 06:42 Dose: 175 mcg Morphine Sulfate (Morphine) 2 mg IVP Q4H PRN PRN Reason: Pain, severe (8-10) Last Admin: 04/08/18 16:51 Dose: 2 mg Olopatadine HCl (Patanol 0.1% Opht Soln) 1 drop OU DAILY [facility] Pantoprazole Sodium (Protonix Ec Tab) 40 mg PO DAILY [facility] Last Admin: 04/10/18 08:47 Dose: 40 mg Tramadol HCl (Ultram) 50 mg PO TID PRN PRN Reason: Pain, moderate (4-7) Last Admin: 04/08/18 05:39 Dose: 50 mg - Labs Labs: 04/10/18 06:40 04/10/18 06:40 PT 14.9 Seconds (9.8-13.1) H 04/07/18 08:22 INR 1.3 (0.9-1.2) H 04/07/18 08:22 Assessment and Plan (1) Asthma Status: Chronic (2) Pelvic abscess Status: Acute (3) Atelectasis Status: Acute (4) BAR (obstructive sleep apnea) Status: Chronic (5) Pleural effusion Status: Chronic
--- NOTE | 2018-04-10 12:42 | CP.PCM.PN ---
Subjective - Date & Time of Evaluation Date of Evaluation: 04/10/18 Time of Evaluation: 09:00 - Subjective Subjective: OOB to chair NAD afeb drainage per rectum noted by RN Objective - Vital Signs/Intake and Output Vital Signs (last 24 hours): Temp Pulse Resp BP Pulse Ox 97.9 F 98 H 16 120/65 96 04/10/18 08:00 04/10/18 12:25 04/10/18 10:00 04/10/18 12:25 04/10/18 12:25 Intake and Output: 04/10/18 04/10/18 06:59 18:59 Intake Total 120 400 Output Total 300 Balance 120 100 - Medications Medications: Current Medications Acetaminophen (Tylenol 325mg Tab) 650 mg PO Q6H PRN PRN Reason: Pain, Mild (1-3) Last Admin: 04/07/18 16:35 Dose: 650 mg Acetaminophen (Tylenol 325mg Tab) 650 mg PO Q6H PRN PRN Reason: Fever >100.4 F Acetaminophen (Tylenol 325mg Tab) 650 mg PO Q6 PRN PRN Reason: Fever >100.4 F Albuterol Sulfate (Albuterol 0.083% Inhal [place] (2.5 Mg/3 Ml) Ud) 2.5 mg INH RQ4 PRN PRN Reason: Shortness of Breath Albuterol/Ipratropium (Duoneb 3 Mg/0.5 Mg (3 Ml) Ud) 3 ml INH RQID [facility] Last Admin: 04/10/18 11:03 Dose: 3 ml Atorvastatin Calcium (Lipitor) 40 mg PO QPM [facility] Last Admin: 04/09/18 17:15 Dose: 40 mg Budesonide (Pulmicort Respules) 0.25 mg INH RBID [facility] Last Admin: 04/10/18 07:23 Dose: 0.25 mg Cyanocobalamin (Vitamin B12 1000 Mcg/Ml Inj) 1,000 mcg IM DAILY [facility] Stop: 04/11/18 09:01 Last Admin: 04/10/18 08:52 Dose: 1,000 mcg Diltiazem HCl (Cardizem) 30 mg PO QID [facility] Last Admin: 04/10/18 12:25 Dose: 30 mg Enoxaparin Sodium (Lovenox) 40 mg SC DAILY [facility] PRN Reason: Protocol Last Admin: 04/10/18 08:47 Dose: 40 mg Fluconazole (Diflucan Iv 400mg/200ml Ns) 200 mls @ 100 mls/hr IVPB DAILY [facility] PRN Reason: Protocol Last Admin: 04/10/18 08:50 Dose: 100 mls/hr Meropenem 1 gm/ Sodium (Chloride) 100 mls @ 100 mls/hr IVPB Q8 [facility] PRN Reason: Protocol Last Admin: 04/10/18 08:51 Dose: 100 mls/hr Insulin Human Lispro (Humalog) 0 units SC Q6H [facility] PRN Reason: Protocol Last Admin: 04/10/18 11:45 Dose: 1 u Levothyroxine Sodium (Synthroid) 175 mcg PO DAILY@0630 [facility] Last Admin: 04/10/18 06:42 Dose: 175 mcg Morphine Sulfate (Morphine) 2 mg IVP Q4H PRN PRN Reason: Pain, severe (8-10) Last Admin: 04/08/18 16:51 Dose: 2 mg Olopatadine HCl (Patanol 0.1% Opht Soln) 1 drop OU DAILY [facility] Ondansetron HCl (Zofran Odt) 4 mg PO Q8H PRN PRN Reason: Nausea/Vomiting Last Admin: 04/10/18 12:35 Dose: 4 mg Pantoprazole Sodium (Protonix Ec Tab) 40 mg PO DAILY [facility] Last Admin: 04/10/18 08:47 Dose: 40 mg Tramadol HCl (Ultram) 50 mg PO TID PRN PRN Reason: Pain, moderate (4-7) Last Admin: 04/08/18 05:39 Dose: 50 mg - Labs Labs: 04/10/18 06:40 04/10/18 06:40 PT 14.9 Seconds (9.8-13.1) H 04/07/18 08:22 INR 1.3 (0.9-1.2) H 04/07/18 08:22 - Constitutional Appears: Non-toxic, Chronically Ill - Head Exam Head Exam: NORMOCEPHALIC - Eye Exam Eye Exam: PERRL - ENT Exam ENT Exam: Mucous Membranes Dry - Neck Exam Neck Exam: absent: Lymphadenopathy - Respiratory Exam Respiratory Exam: Decreased Breath Sounds - Cardiovascular Exam Cardiovascular Exam: REGULAR RHYTHM - GI/Abdominal Exam GI & Abdominal Exam: Distended, Soft - Rectal Exam Rectal Exam: Deferred - Exam Exam: NORMAL INSPECTION - Extremities Exam Extremities Exam: absent: Pedal Edema - Back Exam Back Exam: absent: CVA tenderness (L), CVA tenderness (R) - Neurological Exam Neurological Exam: Alert, Awake, Oriented x3 Assessment and Plan (1) Abdominal wall abscess at site of surgical wound Status: Acute (2) Atelectasis Status: Acute (3) Pelvic abscess Status: Acute (4) Sepsis Status: Acute (5) Wound infection Status: Acute - Assessment and Plan (Free Text) Assessment: cont merrem for min 3 weeks will need follow up imaging Plan: surg follow up re- infected rectal stump
[2018-04-10] MEDS: Olopatadine 0.1% Opht SOLN OU SCH (18:08)
[2018-04-11] MEDS: Meropenem 1 GM in Sodium Chloride 0.9% 100 ML IVPB SCH ×3 (00:52→16:52)
[2018-04-11 05:36] LABS: HEMOGLOBIN 10.2 g/dL (12.0-16.0); MEAN CELL VOLUME 90.9 fl (81.0-99.0); RBC 3.41 Mil/uL (3.80-5.20); WHITE BLOOD COUNT 7.6 K/uL (4.8-10.8)
[2018-04-11 05:42] LABS: BLOOD UREA NITROGEN 4 mg/dl (7-17); CALCIUM 7.3 mg/dL (8.4-10.2); GFR AFRICAN-AMERICAN > 60; GFR NON-AFRICAN AMERICAN > 60
[2018-04-11] MEDS: Levothyroxine 175 MCG TAB PO SCH (06:15)
[2018-04-11] MEDS: Insulin Lispro (humaLOG) 100 Units/ml Inj SC SCH ×4 (07:28→22:52)
[2018-04-11] MEDS: Albuterol-Ipratrop 3 mg / 0.5 (3 ml) UD INH SCH ×4 (07:38→19:11)
[2018-04-11] MEDS: Budesonide 0.25 mg/2 ml Inhal Susp UD INH SCH (07:40)
--- NOTE | 2018-04-11 07:58 | CP.PCM.PN ---
Subjective - Date & Time of Evaluation Date of Evaluation: 04/11/18 Time of Evaluation: 07:30 - Subjective Subjective: Patient seen and examined bedside. Complains of cramps in abdomen and nausea with sight of food. Hemodybnamically stable , afebrile BP 127/74 HR 77 saturating 100 % on 2 L O2 via [place] Still with purulent discharge from midline surgical incision JAMIN drain with 30 ml output WBC 7.6 Hgb 10 Objective - Vital Signs/Intake and Output Vital Signs (last 24 hours): Temp Pulse Resp BP Pulse Ox 97.8 F 77 13 127/74 98 04/11/18 04:00 04/11/18 06:00 04/11/18 06:00 04/11/18 06:00 04/11/18 06:00 Intake and Output: 04/11/18 04/11/18 06:59 18:59 Intake Total 520 Output Total 30 Balance 490 - Medications Medications: Current Medications Acetaminophen (Tylenol 325mg Tab) 650 mg PO Q6H PRN PRN Reason: Pain, Mild (1-3) Last Admin: 04/11/18 01:52 Dose: 650 mg Acetaminophen (Tylenol 325mg Tab) 650 mg PO Q6H PRN PRN Reason: Fever >100.4 F Acetaminophen (Tylenol 325mg Tab) 650 mg PO Q6 PRN PRN Reason: Fever >100.4 F Albuterol Sulfate (Albuterol 0.083% Inhal [place] (2.5 Mg/3 Ml) Ud) 2.5 mg INH RQ4 PRN PRN Reason: Shortness of Breath Albuterol/Ipratropium (Duoneb 3 Mg/0.5 Mg (3 Ml) Ud) 3 ml INH RQID [facility] Last Admin: 04/11/18 07:38 Dose: 3 ml Atorvastatin Calcium (Lipitor) 40 mg PO QPM [facility] Last Admin: 04/10/18 18:07 Dose: 40 mg Budesonide (Pulmicort Respules) 0.25 mg INH RBID [facility] Last Admin: 04/11/18 07:40 Dose: 0.25 mg Cyanocobalamin (Vitamin B12 1000 Mcg/Ml Inj) 1,000 mcg IM DAILY [facility] Stop: 04/11/18 09:01 Last Admin: 04/10/18 08:52 Dose: 1,000 mcg Diltiazem HCl (Cardizem) 30 mg PO QID [facility] Last Admin: 04/10/18 21:13 Dose: 30 mg Enoxaparin Sodium (Lovenox) 40 mg SC DAILY [facility] PRN Reason: Protocol Last Admin: 04/10/18 08:47 Dose: 40 mg Fluconazole (Diflucan Iv 400mg/200ml Ns) 200 mls @ 100 mls/hr IVPB DAILY [facility] PRN Reason: Protocol Last Admin: 04/10/18 08:50 Dose: 100 mls/hr Meropenem 1 gm/ Sodium (Chloride) 100 mls @ 100 mls/hr IVPB Q8 [facility] PRN Reason: Protocol Last Admin: 04/11/18 00:52 Dose: 100 mls/hr Insulin Human Lispro (Humalog) 0 units SC ACHS [facility] PRN Reason: Protocol Last Admin: 04/11/18 07:28 Dose: Not Given Levothyroxine Sodium (Synthroid) 175 mcg PO DAILY@0630 [facility] Last Admin: 04/11/18 06:15 Dose: 175 mcg Losartan Potassium (Cozaar) 50 mg PO DAILY [facility] Morphine Sulfate (Morphine) 2 mg IVP Q4H PRN PRN Reason: Pain, severe (8-10) Last Admin: 04/08/18 16:51 Dose: 2 mg Olopatadine HCl (Patanol 0.1% Opht Soln) 1 drop OU DAILY [facility] Last Admin: 04/10/18 18:08 Dose: 1 drop Ondansetron HCl (Zofran Odt) 4 mg PO Q8H PRN PRN Reason: Nausea/Vomiting Last Admin: 04/10/18 12:35 Dose: 4 mg Pantoprazole Sodium (Protonix Ec Tab) 40 mg PO DAILY [facility] Last Admin: 04/10/18 08:47 Dose: 40 mg Tramadol HCl (Ultram) 50 mg PO TID PRN PRN Reason: Pain, moderate (4-7) Last Admin: 04/08/18 05:39 Dose: 50 mg - Labs Labs: 04/11/18 04:25 04/11/18 04:25 PT 14.9 Seconds (9.8-13.1) H 04/07/18 08:22 INR 1.3 (0.9-1.2) H 04/07/18 08:22 - Constitutional Appears: Non-toxic, No Acute Distress - Head Exam Head Exam: ATRAUMATIC, NORMAL INSPECTION, NORMOCEPHALIC - Eye Exam Eye Exam: EOMI, Normal appearance, PERRL Pupil Exam: NORMAL ACCOMODATION - ENT Exam ENT Exam: Mucous Membranes Moist, Normal Exam - Neck Exam Neck Exam: Full ROM, Normal Inspection - Respiratory Exam Respiratory Exam: Clear to Ausculation Bilateral, NORMAL BREATHING PATTERN. absent: Rales, Rhonchi, Wheezes - Cardiovascular Exam Cardiovascular Exam: REGULAR RHYTHM, RRR, +S1, +S2. absent: JVD - GI/Abdominal Exam GI & Abdominal Exam: Soft, Normal Bowel Sounds. absent: Distended, Guarding, Tenderness Additional comments: midline, mid surgical incision scar with 2 small opening with purulent discharge LLQ colostomy bag in place RLQ pig tail in place - Rectal Exam Rectal Exam: Deferred - Extremities Exam Extremities Exam: Full ROM, Normal Capillary Refill, Normal Inspection. absent : Pedal Edema - Neurological Exam Neurological Exam: Alert, Awake, CN II-XII Intact, Oriented x3 - Psychiatric Exam Psychiatric exam: Normal Affect, Normal Mood - Skin Skin Exam: Dry, Pallor, Warm Assessment and Plan - Assessment and Plan (Free Text) Assessment: 87 y/o lady , well known to the Hospitalist team from previous admission last month presented with drainage from surgical scar. She had Colon Perforation after Colonoscopy and underwent Sigmoid Resection and Colostomy. She was d/c to a [facility] on 03/05. She came back because of abdominal pain, chills and purulent drainage from her surgical wound. CT of the abdomen/Pelviss howed Large pelvic abscess collection closely associated with the rectal stump ,raising suspicion for leak. Surgery , ID and IR consulted . She was admitted startedon IV antibiotics and underwent IR drainage of abscess. Wound cultures reported positive for ESBL and Proteus. She is hemodynamically stable, afebrile with normal WBC count while on Meropenem and Diflucan. Pig tail with minimal drainage last 24 hours . Still with purulent drainage from openings of surgical scar. 1.Sepsis sec to Pelvic Abscess and Abdominal Wound Abscess Hemodynamically stable, afebrile WBC 7.6 s/p CT guided Incision and Drainage and placement of pigtail catheter done by IR. Last 24 hour output 30 ml ID , surgery on consult cont Meropenem and Diflucan Wound cx positive for ESBL and Proteus Contact isolation Pain management Promote ambulation with PT 2. Abdominal wall abscess at site of surgical wound Acute 2 small areas of dehiscence noted draining purulent material 3 Diabetes mellitus, type II accucheck with coverage controlled 4 CHF (congestive heart failure), chronic diastolic on Losartan 5. Atrial fibrillation, chronic with RVR Chronic off anticoag due to her GI bleed cont Cardizem Cardio consulted - Dr Arriaga 6. Asthma ( mild intermittent ) chronic COPD (chronic obstructive pulmonary disease), chronic Atelectasis/Pleural Effusion seen on CT Pulm consulted- Dr Macario Hilario treatments changed Advair to Pulmicort 7. Hypertension chronic , controlled cont Cardizem restart Losartan 8. Hypothyroidism Chronic cont Levothyroxine 9. Mild anemia Hgb 10 chronic , stable 10. Obesity BMI 31 11 DVT prophylaxis Lovenox
[2018-04-11] MEDS ORDERED: Hydrogen Peroxide 3% Soln (480ml) TP ONE (08:16)
[2018-04-11] MEDS: Olopatadine 0.1% Opht SOLN OU SCH (08:21)
[2018-04-11] MEDS: Pantoprazole 40 mg EC Tab PO SCH (08:23)
[2018-04-11] MEDS: Enoxaparin 40 mg Syringe SC SCH (08:36)
[2018-04-11] MEDS: Fluconazole IV 400mg/200ml NS 200 ML IVPB SCH (08:49)
--- NOTE | 2018-04-11 10:05 | CP.PCM.PN ---
Subjective - Date & Time of Evaluation Date of Evaluation: 04/11/18 Time of Evaluation: 07:30 - Subjective Subjective: Patient seen and examined. No acute events over night. Still has some purulent drainage from abdominal region, improving. Wound irrigated with hydrogen peroxide. IR drainage with 30cc purulent output over 24 hrs. As per nursing, patient had some vaginal discharge matching characted of fluid in IR bag. Objective - Vital Signs/Intake and Output Vital Signs (last 24 hours): Temp Pulse Resp BP Pulse Ox 97.9 F 93 H 16 130/53 L 100 04/11/18 07:43 04/11/18 09:01 04/11/18 09:01 04/11/18 09:01 04/11/18 09:01 Intake and Output: 04/11/18 04/11/18 06:59 18:59 Intake Total 520 660 Output Total 30 Balance 490 660 - Medications Medications: Current Medications Acetaminophen (Tylenol 325mg Tab) 650 mg PO Q6H PRN PRN Reason: Pain, Mild (1-3) Last Admin: 04/11/18 01:52 Dose: 650 mg Acetaminophen (Tylenol 325mg Tab) 650 mg PO Q6H PRN PRN Reason: Fever >100.4 F Acetaminophen (Tylenol 325mg Tab) 650 mg PO Q6 PRN PRN Reason: Fever >100.4 F Albuterol Sulfate (Albuterol 0.083% Inhal [place] (2.5 Mg/3 Ml) Ud) 2.5 mg INH RQ4 PRN PRN Reason: Shortness of Breath Albuterol/Ipratropium (Duoneb 3 Mg/0.5 Mg (3 Ml) Ud) 3 ml INH RQID [facility] Last Admin: 04/11/18 07:38 Dose: 3 ml Atorvastatin Calcium (Lipitor) 40 mg PO QPM [facility] Last Admin: 04/10/18 18:07 Dose: 40 mg Budesonide (Pulmicort Respules) 0.25 mg INH RBID [facility] Last Admin: 04/11/18 07:40 Dose: 0.25 mg Diltiazem HCl (Cardizem) 30 mg PO QID [facility] Last Admin: 04/11/18 08:36 Dose: 30 mg Enoxaparin Sodium (Lovenox) 40 mg SC DAILY [facility] PRN Reason: Protocol Last Admin: 04/11/18 08:36 Dose: 40 mg Fluconazole (Diflucan Iv 400mg/200ml Ns) 200 mls @ 100 mls/hr IVPB DAILY [facility] PRN Reason: Protocol Last Admin: 04/11/18 08:49 Dose: 100 mls/hr Meropenem 1 gm/ Sodium (Chloride) 100 mls @ 100 mls/hr IVPB Q8 [facility] PRN Reason: Protocol Last Admin: 04/11/18 08:18 Dose: 100 mls/hr Insulin Human Lispro (Humalog) 0 units SC ACHS [facility] PRN Reason: Protocol Last Admin: 04/11/18 07:28 Dose: Not Given Levothyroxine Sodium (Synthroid) 175 mcg PO DAILY@0630 [facility] Last Admin: 04/11/18 06:15 Dose: 175 mcg Losartan Potassium (Cozaar) 50 mg PO DAILY [facility] Last Admin: 04/11/18 08:19 Dose: 50 mg Morphine Sulfate (Morphine) 2 mg IVP Q4H PRN PRN Reason: Pain, severe (8-10) Last Admin: 04/08/18 16:51 Dose: 2 mg Olopatadine HCl (Patanol 0.1% Opht Soln) 1 drop OU DAILY [facility] Last Admin: 04/11/18 08:21 Dose: 1 drop Ondansetron HCl (Zofran Odt) 4 mg PO Q8H PRN PRN Reason: Nausea/Vomiting Last Admin: 04/10/18 12:35 Dose: 4 mg Pantoprazole Sodium (Protonix Ec Tab) 40 mg PO DAILY [facility] Last Admin: 04/11/18 08:23 Dose: 40 mg Tramadol HCl (Ultram) 50 mg PO TID PRN PRN Reason: Pain, moderate (4-7) Last Admin: 04/08/18 05:39 Dose: 50 mg - Labs Labs: 04/11/18 04:25 04/11/18 04:25 PT 14.9 Seconds (9.8-13.1) H 04/07/18 08:22 INR 1.3 (0.9-1.2) H 04/07/18 08:22 - Constitutional Appears: No Acute Distress - Head Exam Head Exam: NORMOCEPHALIC - Eye Exam Eye Exam: Normal appearance - ENT Exam ENT Exam: Mucous Membranes Moist - Respiratory Exam Respiratory Exam: NORMAL BREATHING PATTERN - GI/Abdominal Exam GI & Abdominal Exam: Soft - Neurological Exam Neurological Exam: Alert, Awake, Oriented x3 - Psychiatric Exam Psychiatric exam: Normal Mood - Skin Skin Exam: Dry, Normal Color, Warm Assessment and Plan - Assessment and Plan (Free Text) Assessment: 87F with anterior abdominal wall soft tissue abscess, intra abdominal abscess, 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 Danyel Kolb PGY 2
[2018-04-12] MEDS: Meropenem 1 GM in Sodium Chloride 0.9% 100 ML IVPB SCH ×3 (00:08→17:02)
[2018-04-12 06:05] LABS: BASO # 0.1 K/uL (0.0-0.2); BASO % 0.7 % (0.0-2.0); EOS # 0.1 K/uL (0.0-0.7); EOS % 1.2 % (0.0-4.0); HEMOGLOBIN 10.6 g/dL (12.0-16.0); LYMPH # 3.5 K/uL (1.0-4.3); LYMPH % 43.8 % (20.0-40.0); MEAN CELL VOLUME 90.4 fl (81.0-99.0); MEAN CORPUSCULAR HEMOGLOBIN 29.5 pg (27.0-31.0); MEAN CORPUSCULAR HGB CONC 32.7 g/dL (33.0-37.0); MEAN PLATELET VOLUME 7.9 fl (7.2-11.7); MONO # 0.7 K/uL (0.0-0.8); MONO % 9.3 % (0.0-10.0); NEUT # 3.5 K/uL (1.8-7.0); NRBC % 0.2 % (0.0-0.0); RBC 3.58 Mil/uL (3.80-5.20); RED CELL DISTRIBUTION WIDTH 21.2 % (11.5-14.5); WHITE BLOOD COUNT 7.9 K/uL (4.8-10.8)
[2018-04-12 06:24] LABS: BLOOD UREA NITROGEN 5 mg/dl (7-17); CALCIUM 7.4 mg/dL (8.4-10.2); GFR AFRICAN-AMERICAN > 60; GFR NON-AFRICAN AMERICAN > 60
[2018-04-12] MEDS: Levothyroxine 175 MCG TAB PO SCH (06:48)
--- NOTE | 2018-04-12 07:08 | CP.PCM.PN ---
Subjective - Date & Time of Evaluation Date of Evaluation: 04/12/18 Time of Evaluation: 07:08 - Subjective Subjective: pt continues to feel weak, not yet ambulating minimal drainage from pgitail continues to have some vaginal discharge, less than yesterday HD stable, no acute distress at this time Objective - Vital Signs/Intake and Output Vital Signs (last 24 hours): Temp Pulse Resp BP Pulse Ox 98.4 F 80 12 122/59 L 100 04/12/18 04:00 04/12/18 06:00 04/12/18 06:00 04/12/18 06:00 04/12/18 06:00 Intake and Output: Vitals Reviewed GEN: WDWN, alert, cooperative HEENT: NCAT, PERRL, EOMI HEART: RRR, +S1S2, NO MRG LUNG: CTAB, NO WRR ABD: soft, NT, ND, No HSM, No masses EXT: normal pedal pulses, normal capillary refill NEURO: awake, alert, no focal deficits SKIN: warm, dry PSYCH: normal mood, normal affect - Medications Medications: Current Medications Acetaminophen (Tylenol 325mg Tab) 650 mg PO Q6H PRN PRN Reason: Pain, Mild (1-3) Last Admin: 04/12/18 00:06 Dose: 650 mg Acetaminophen (Tylenol 325mg Tab) 650 mg PO Q6H PRN PRN Reason: Fever >100.4 F Acetaminophen (Tylenol 325mg Tab) 650 mg PO Q6 PRN PRN Reason: Fever >100.4 F Albuterol Sulfate (Albuterol 0.083% Inhal [place] (2.5 Mg/3 Ml) Ud) 2.5 mg INH RQ4 PRN PRN Reason: Shortness of Breath Albuterol/Ipratropium (Duoneb 3 Mg/0.5 Mg (3 Ml) Ud) 3 ml INH RQID [facility] Last Admin: 04/11/18 19:11 Dose: 3 ml Atorvastatin Calcium (Lipitor) 40 mg PO QPM [facility] Last Admin: 04/11/18 17:03 Dose: 40 mg Budesonide (Pulmicort Respules) 0.25 mg INH RBID [facility] Last Admin: 04/11/18 07:40 Dose: 0.25 mg Diltiazem HCl (Cardizem) 30 mg PO QID [facility] Last Admin: 04/11/18 22:28 Dose: 30 mg Enoxaparin Sodium (Lovenox) 40 mg SC DAILY [facility] PRN Reason: Protocol Last Admin: 04/11/18 08:36 Dose: 40 mg Fluconazole (Diflucan Iv 400mg/200ml Ns) 200 mls @ 100 mls/hr IVPB DAILY [facility] PRN Reason: Protocol Last Admin: 04/11/18 08:49 Dose: 100 mls/hr Meropenem 1 gm/ Sodium (Chloride) 100 mls @ 100 mls/hr IVPB Q8 [facility] PRN Reason: Protocol Last Admin: 04/12/18 00:08 Dose: 100 mls/hr Insulin Human Lispro (Humalog) 0 units SC ACHS [facility] PRN Reason: Protocol Last Admin: 04/11/18 22:52 Dose: Not Given Levothyroxine Sodium (Synthroid) 175 mcg PO DAILY@0630 [facility] Last Admin: 04/12/18 06:48 Dose: 175 mcg Losartan Potassium (Cozaar) 50 mg PO DAILY [facility] Last Admin: 04/11/18 08:19 Dose: 50 mg Morphine Sulfate (Morphine) 2 mg IVP Q4H PRN PRN Reason: Pain, severe (8-10) Last Admin: 04/12/18 02:09 Dose: 2 mg Olopatadine HCl (Patanol 0.1% Opht Soln) 1 drop OU DAILY [facility] Last Admin: 04/11/18 08:21 Dose: 1 drop Ondansetron HCl (Zofran Odt) 4 mg PO Q8H PRN PRN Reason: Nausea/Vomiting Last Admin: 04/10/18 12:35 Dose: 4 mg Pantoprazole Sodium (Protonix Ec Tab) 40 mg PO DAILY [facility] Last Admin: 04/11/18 08:23 Dose: 40 mg Tramadol HCl (Ultram) 50 mg PO TID PRN PRN Reason: Pain, moderate (4-7) Last Admin: 04/08/18 05:39 Dose: 50 mg - Labs Labs: 04/12/18 04:19 04/12/18 04:19 PT 14.9 Seconds (9.8-13.1) H 04/07/18 08:22 INR 1.3 (0.9-1.2) H 04/07/18 08:22 Assessment and Plan - Assessment and Plan (Free Text) Plan: 87 y/o lady, well known to the Hospitalist team from previous admission last month presented with drainage from surgical scar. She had Colon Perforation after Colonoscopy and underwent Sigmoid Resection and Colostomy. She was d/c to a [facility] on 03/05. She came back because of abdominal pain, chills and purulent drainage from her surgical wound. CT of the abdomen/Pelvis showed Large pelvic abscess collection closely associated with the rectal stump, raising suspicion for leak. Surgery , ID and IR consulted . She was admitted startedon IV antibiotics and underwent IR drainage of abscess. Wound cultures reported positive for ESBL and Proteus. She is hemodynamically stable, afebrile with normal WBC count while on Meropenem and Diflucan. Pig tail with minimal drainage last 24 hours . Still with purulent drainage from openings of surgical scar. 1.Sepsis sec to Pelvic Abscess and Abdominal Wound Abscess Hemodynamically stable, afebrile WBC stable s/p CT guided Incision and Drainage and placement of pigtail catheter done by IR. Last 24 hour output minimal, less than 5 cc ID , surgery on consult cont Meropenem and Diflucan Wound cx positive for ESBL and Proteus Contact isolation Pain management Promote ambulation with PT 2. Abdominal wall abscess at site of surgical wound Acute 2 small areas of dehiscence noted draining purulent material 3 Diabetes mellitus, type II accucheck with coverage controlled 4 CHF (congestive heart failure), chronic diastolic on Losartan 5. Atrial fibrillation, chronic with RVR Chronic off anticoag due to her GI bleed cont Cardizem Cardio consulted - Dr Arriaga 6. Asthma ( mild intermittent ) chronic COPD (chronic obstructive pulmonary disease), chronic Atelectasis/Pleural Effusion seen on CT Pulm consulted- Dr Macario Hilario treatments changed Advair to Pulmicort 7. Hypertension chronic , controlled cont Cardizem restart Losartan 8. Hypothyroidism Chronic cont Levothyroxine 9. Mild anemia Hgb 10 chronic , stable 10. Obesity BMI 31 11 DVT prophylaxis Lovenox 12. Vaginal discharge - cultures pending - improving, cont to have some discharge
[2018-04-12] MEDS: Albuterol-Ipratrop 3 mg / 0.5 (3 ml) UD INH SCH ×4 (07:42→19:13)
[2018-04-12] MEDS: Budesonide 0.25 mg/2 ml Inhal Susp UD INH SCH ×2 (07:42→19:13)
[2018-04-12] MEDS: Insulin Lispro (humaLOG) 100 Units/ml Inj SC SCH ×4 (07:42→21:10)
[2018-04-12] MEDS: Fluconazole IV 400mg/200ml NS 200 ML IVPB SCH (08:35)
[2018-04-12] MEDS: Enoxaparin 40 mg Syringe SC SCH (08:36)
[2018-04-12] MEDS: Olopatadine 0.1% Opht SOLN OU SCH (08:39)
[2018-04-12] MEDS: Pantoprazole 40 mg EC Tab PO SCH (08:40)
--- NOTE | 2018-04-12 09:09 | CP.PCM.PN ---
Subjective - Date & Time of Evaluation Date of Evaluation: 04/12/18 Time of Evaluation: 06:50 - Subjective Subjective: Surgery- Dr. Montaño Patient seen and examined at bedside this AM. States some purulent vaginal drainage when walking. Minimal abd pain. Tolerating current diet. Pigtail in place < 5cc of output from drain Objective - Vital Signs/Intake and Output Vital Signs (last 24 hours): Temp Pulse Resp BP Pulse Ox 98.4 F 96 H 16 151/69 H 100 04/12/18 04:00 04/12/18 08:34 04/12/18 08:29 04/12/18 08:34 04/12/18 08:29 - Medications Medications: Current Medications Acetaminophen (Tylenol 325mg Tab) 650 mg PO Q6H PRN PRN Reason: Pain, Mild (1-3) Last Admin: 04/12/18 00:06 Dose: 650 mg Acetaminophen (Tylenol 325mg Tab) 650 mg PO Q6H PRN PRN Reason: Fever >100.4 F Acetaminophen (Tylenol 325mg Tab) 650 mg PO Q6 PRN PRN Reason: Fever >100.4 F Albuterol Sulfate (Albuterol 0.083% Inhal [place] (2.5 Mg/3 Ml) Ud) 2.5 mg INH RQ4 PRN PRN Reason: Shortness of Breath Albuterol/Ipratropium (Duoneb 3 Mg/0.5 Mg (3 Ml) Ud) 3 ml INH RQID [facility] Last Admin: 04/12/18 07:42 Dose: 3 ml Atorvastatin Calcium (Lipitor) 40 mg PO QPM [facility] Last Admin: 04/11/18 17:03 Dose: 40 mg Budesonide (Pulmicort Respules) 0.25 mg INH RBID [facility] Last Admin: 04/12/18 07:42 Dose: 0.25 mg Diltiazem HCl (Cardizem) 30 mg PO QID [facility] Last Admin: 04/12/18 08:29 Dose: 30 mg Enoxaparin Sodium (Lovenox) 40 mg SC DAILY [facility] PRN Reason: Protocol Last Admin: 04/12/18 08:36 Dose: 40 mg Fluconazole (Diflucan Iv 400mg/200ml Ns) 200 mls @ 100 mls/hr IVPB DAILY [facility] PRN Reason: Protocol Last Admin: 04/12/18 08:35 Dose: 100 mls/hr Meropenem 1 gm/ Sodium (Chloride) 100 mls @ 100 mls/hr IVPB Q8 [facility] PRN Reason: Protocol Last Admin: 04/12/18 08:36 Dose: 100 mls/hr Insulin Human Lispro (Humalog) 0 units SC ACHS [facility] PRN Reason: Protocol Last Admin: 04/12/18 07:42 Dose: Not Given Levothyroxine Sodium (Synthroid) 175 mcg PO DAILY@0630 [facility] Last Admin: 04/12/18 06:48 Dose: 175 mcg Losartan Potassium (Cozaar) 50 mg PO DAILY [facility] Last Admin: 04/12/18 08:34 Dose: 50 mg Morphine Sulfate (Morphine) 2 mg IVP Q4H PRN PRN Reason: Pain, severe (8-10) Last Admin: 04/12/18 02:09 Dose: 2 mg Olopatadine HCl (Patanol 0.1% Opht Soln) 1 drop OU DAILY [facility] Last Admin: 04/12/18 08:39 Dose: 1 drop Ondansetron HCl (Zofran Odt) 4 mg PO Q8H PRN PRN Reason: Nausea/Vomiting Last Admin: 04/12/18 08:34 Dose: 4 mg Pantoprazole Sodium (Protonix Ec Tab) 40 mg PO DAILY [facility] Last Admin: 04/12/18 08:40 Dose: 40 mg Tramadol HCl (Ultram) 50 mg PO TID PRN PRN Reason: Pain, moderate (4-7) Last Admin: 04/08/18 05:39 Dose: 50 mg - Labs Labs: 04/12/18 04:19 04/12/18 04:19 PT 14.9 Seconds (9.8-13.1) H 04/07/18 08:22 INR 1.3 (0.9-1.2) H 04/07/18 08:22 - Constitutional Appears: Non-toxic, No Acute Distress - Head Exam Head Exam: ATRAUMATIC - Eye Exam Eye Exam: EOMI - ENT Exam ENT Exam: Mucous Membranes Moist - Respiratory Exam Respiratory Exam: NORMAL BREATHING PATTERN. absent: Accessory Muscle Use, Respiratory Distress - GI/Abdominal Exam GI & Abdominal Exam: Soft Additional comments: midline, x2 area of discharge. non-odorous Drain in RLQ in place < 5cc in drain no active drainage from incision site - Extremities Exam Extremities Exam: Normal Inspection. 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 Montaño. Case discussed in detail. PGY1
--- NOTE | 2018-04-12 11:43 | CP.PCM.PN ---
Subjective - Date & Time of Evaluation Date of Evaluation: 04/12/18 Time of Evaluation: 10:00 - Subjective Subjective: awake alert drainage less no fever no abd pain Objective - Vital Signs/Intake and Output Vital Signs (last 24 hours): Temp Pulse Resp BP Pulse Ox 98.4 F 86 10 L 114/59 L 100 04/12/18 08:00 04/12/18 10:00 04/12/18 10:00 04/12/18 10:00 04/12/18 10:00 Intake and Output: 04/12/18 04/12/18 06:59 18:59 Intake Total 450 Balance 450 - Medications Medications: Current Medications Acetaminophen (Tylenol 325mg Tab) 650 mg PO Q6H PRN PRN Reason: Pain, Mild (1-3) Last Admin: 04/12/18 00:06 Dose: 650 mg Acetaminophen (Tylenol 325mg Tab) 650 mg PO Q6H PRN PRN Reason: Fever >100.4 F Acetaminophen (Tylenol 325mg Tab) 650 mg PO Q6 PRN PRN Reason: Fever >100.4 F Albuterol Sulfate (Albuterol 0.083% Inhal [place] (2.5 Mg/3 Ml) Ud) 2.5 mg INH RQ4 PRN PRN Reason: Shortness of Breath Albuterol/Ipratropium (Duoneb 3 Mg/0.5 Mg (3 Ml) Ud) 3 ml INH RQID [facility] Last Admin: 04/12/18 07:42 Dose: 3 ml Atorvastatin Calcium (Lipitor) 40 mg PO QPM [facility] Last Admin: 04/11/18 17:03 Dose: 40 mg Budesonide (Pulmicort Respules) 0.25 mg INH RBID [facility] Last Admin: 04/12/18 07:42 Dose: 0.25 mg Diltiazem HCl (Cardizem) 30 mg PO QID [facility] Last Admin: 04/12/18 08:29 Dose: 30 mg Enoxaparin Sodium (Lovenox) 40 mg SC DAILY [facility] PRN Reason: Protocol Last Admin: 04/12/18 08:36 Dose: 40 mg Fluconazole (Diflucan Iv 400mg/200ml Ns) 200 mls @ 100 mls/hr IVPB DAILY [facility] PRN Reason: Protocol Last Admin: 04/12/18 08:35 Dose: 100 mls/hr Meropenem 1 gm/ Sodium (Chloride) 100 mls @ 100 mls/hr IVPB Q8 [facility] PRN Reason: Protocol Last Admin: 04/12/18 08:36 Dose: 100 mls/hr Insulin Human Lispro (Humalog) 0 units SC ACHS [facility] PRN Reason: Protocol Last Admin: 04/12/18 07:42 Dose: Not Given Levothyroxine Sodium (Synthroid) 175 mcg PO DAILY@0630 [facility] Last Admin: 04/12/18 06:48 Dose: 175 mcg Losartan Potassium (Cozaar) 50 mg PO DAILY [facility] Last Admin: 04/12/18 08:34 Dose: 50 mg Morphine Sulfate (Morphine) 2 mg IVP Q4H PRN PRN Reason: Pain, severe (8-10) Last Admin: 04/12/18 02:09 Dose: 2 mg Olopatadine HCl (Patanol 0.1% Opht Soln) 1 drop OU DAILY [facility] Last Admin: 04/12/18 08:39 Dose: 1 drop Ondansetron HCl (Zofran Odt) 4 mg PO Q8H PRN PRN Reason: Nausea/Vomiting Last Admin: 04/12/18 08:34 Dose: 4 mg Pantoprazole Sodium (Protonix Ec Tab) 40 mg PO DAILY [facility] Last Admin: 04/12/18 08:40 Dose: 40 mg Tramadol HCl (Ultram) 50 mg PO TID PRN PRN Reason: Pain, moderate (4-7) Last Admin: 04/08/18 05:39 Dose: 50 mg - Labs Labs: 04/12/18 04:19 04/12/18 04:19 PT 14.9 Seconds (9.8-13.1) H 04/07/18 08:22 INR 1.3 (0.9-1.2) H 04/07/18 08:22 - Constitutional Appears: Non-toxic - Head Exam Head Exam: ATRAUMATIC, NORMAL INSPECTION, NORMOCEPHALIC - Eye Exam Eye Exam: EOMI, Normal appearance, PERRL - Neck Exam Neck Exam: Full ROM, Normal Inspection. absent: Lymphadenopathy - Cardiovascular Exam Cardiovascular Exam: REGULAR RHYTHM, +S1, +S2. absent: Murmur - GI/Abdominal Exam GI & Abdominal Exam: Distended, Soft. absent: Tenderness - Rectal Exam Rectal Exam: Deferred - Exam Exam: NORMAL INSPECTION - Extremities Exam Extremities Exam: absent: Pedal Edema - Back Exam Back Exam: absent: CVA tenderness (L), CVA tenderness (R) - Neurological Exam Neurological Exam: Alert, Awake, Oriented x3 Neuro motor strength exam: Left Upper Extremity: 3, Right Upper Extremity: 3, Left Lower Extremity: 3, Right Lower Extremity: 3 - Psychiatric Exam Psychiatric exam: Normal Mood - Skin Skin Exam: Dry Assessment and Plan (1) Abdominal wall abscess at site of surgical wound Status: Acute (2) Atelectasis Status: Acute (3) Pelvic abscess Status: Acute (4) Sepsis Status: Acute (5) Wound infection Status: Acute - Assessment and Plan (Free Text) Assessment: IV rx renewed
[2018-04-13] MEDS: Meropenem 1 GM in Sodium Chloride 0.9% 100 ML IVPB SCH ×3 (01:44→16:36)
[2018-04-13 05:29] LABS: HEMOGLOBIN 10.2 g/dL (12.0-16.0); MEAN CELL VOLUME 90.1 fl (81.0-99.0); MEAN CORPUSCULAR HEMOGLOBIN 30.4 pg (27.0-31.0); MEAN CORPUSCULAR HGB CONC 33.8 g/dL (33.0-37.0); RBC 3.36 Mil/uL (3.80-5.20); RED CELL DISTRIBUTION WIDTH 20.7 % (11.5-14.5); WHITE BLOOD COUNT 7.9 K/uL (4.8-10.8)
[2018-04-13 05:51] LABS: BLOOD UREA NITROGEN 3 mg/dl (7-17); CALCIUM 7.6 mg/dL (8.4-10.2); GFR AFRICAN-AMERICAN > 60; GFR NON-AFRICAN AMERICAN > 60
[2018-04-13] MEDS: Levothyroxine 175 MCG TAB PO SCH (06:57)
[2018-04-13] MEDS: Insulin Lispro (humaLOG) 100 Units/ml Inj SC SCH ×4 (06:58→22:23)
--- NOTE | 2018-04-13 07:33 | CP.PCM.PN ---
Subjective - Date & Time of Evaluation Date of Evaluation: 04/13/18 Time of Evaluation: 07:33 - Subjective Subjective: pt comfortable less discharge today (cx +yeast - diflucan PO given) wound vac placed yesterday encouraged to participate in PT today hd stable at this time transfer to [place] Objective - Vital Signs/Intake and Output Vital Signs (last 24 hours): Temp Pulse Resp BP Pulse Ox 98.1 F 91 H 15 132/67 96 04/13/18 04:25 04/13/18 04:25 04/13/18 04:25 04/13/18 04:25 04/13/18 04:25 Vitals Reviewed GEN: WDWN, alert, cooperative HEENT: NCAT, PERRL, EOMI HEART: RRR, +S1S2, NO MRG LUNG: CTAB, NO WRR ABD: soft, NT, ND, No HSM, No masses EXT: normal pedal pulses, normal capillary refill NEURO: awake, alert, no focal deficits SKIN: warm, dry PSYCH: normal mood, normal affect Intake and Output: 04/13/18 04/13/18 06:59 18:59 Intake Total 172 Output Total 200 Balance -28 - Medications Medications: Current Medications Acetaminophen (Tylenol 325mg Tab) 650 mg PO Q6H PRN PRN Reason: Pain, Mild (1-3) Last Admin: 04/12/18 00:06 Dose: 650 mg Acetaminophen (Tylenol 325mg Tab) 650 mg PO Q6H PRN PRN Reason: Fever >100.4 F Acetaminophen (Tylenol 325mg Tab) 650 mg PO Q6 PRN PRN Reason: Fever >100.4 F Albuterol Sulfate (Albuterol 0.083% Inhal [place] (2.5 Mg/3 Ml) Ud) 2.5 mg INH RQ4 PRN PRN Reason: Shortness of Breath Albuterol/Ipratropium (Duoneb 3 Mg/0.5 Mg (3 Ml) Ud) 3 ml INH RQID [facility] Last Admin: 04/12/18 19:13 Dose: 3 ml Atorvastatin Calcium (Lipitor) 40 mg PO QPM [facility] Last Admin: 04/12/18 17:01 Dose: 40 mg Budesonide (Pulmicort Respules) 0.25 mg INH RBID [facility] Last Admin: 04/12/18 19:13 Dose: 0.25 mg Diltiazem HCl (Cardizem) 30 mg PO QID [facility] Last Admin: 04/12/18 21:03 Dose: 30 mg Enoxaparin Sodium (Lovenox) 40 mg SC DAILY [facility] PRN Reason: Protocol Last Admin: 04/12/18 08:36 Dose: 40 mg Meropenem 1 gm/ Sodium (Chloride) 100 mls @ 100 mls/hr IVPB Q8 [facility] PRN Reason: Protocol Last Admin: 04/13/18 01:44 Dose: 100 mls/hr Insulin Human Lispro (Humalog) 0 units SC ACHS [facility] PRN Reason: Protocol Last Admin: 04/13/18 06:58 Dose: Not Given Levothyroxine Sodium (Synthroid) 175 mcg PO DAILY@0630 [facility] Last Admin: 04/13/18 06:57 Dose: 175 mcg Losartan Potassium (Cozaar) 50 mg PO DAILY [facility] Last Admin: 04/12/18 08:34 Dose: 50 mg Morphine Sulfate (Morphine) 2 mg IVP Q4H PRN PRN Reason: Pain, severe (8-10) Last Admin: 04/12/18 02:09 Dose: 2 mg Olopatadine HCl (Patanol 0.1% Opht Soln) 1 drop OU DAILY [facility] Last Admin: 04/12/18 08:39 Dose: 1 drop Ondansetron HCl (Zofran Odt) 4 mg PO Q8H PRN PRN Reason: Nausea/Vomiting Last Admin: 04/12/18 08:34 Dose: 4 mg Pantoprazole Sodium (Protonix Ec Tab) 40 mg PO DAILY [facility] Last Admin: 04/12/18 08:40 Dose: 40 mg Tramadol HCl (Ultram) 50 mg PO TID PRN PRN Reason: Pain, moderate (4-7) Last Admin: 04/12/18 17:05 Dose: 50 mg - Labs Labs: 04/13/18 04:20 04/13/18 04:20 PT 14.9 Seconds (9.8-13.1) H 04/07/18 08:22 INR 1.3 (0.9-1.2) H 04/07/18 08:22 Assessment and Plan - Assessment and Plan (Free Text) Plan: 87 y/o lady, well known to the Hospitalist team from previous admission last month presented with drainage from surgical scar. She had Colon Perforation after Colonoscopy and underwent Sigmoid Resection and Colostomy. She was d/c to a [facility] on 03/05. She came back because of abdominal pain, chills and purulent drainage from her surgical wound. CT of the abdomen/Pelvis showed Large pelvic abscess collection closely associated with the rectal stump, raising suspicion for leak. Surgery , ID and IR consulted . She was admitted startedon IV antibiotics and underwent IR drainage of abscess. Wound cultures reported positive for ESBL and Proteus. She is hemodynamically stable, afebrile with normal WBC count while on Meropenem and Diflucan. Pig tail with minimal drainage last 24 hours . Still with purulent drainage from openings of surgical scar. 1.Sepsis sec to Pelvic Abscess and Abdominal Wound Abscess Hemodynamically stable, afebrile WBC stable s/p CT guided Incision and Drainage and placement of pigtail catheter done by IR. Last 24 hour output minimal, less than 5 cc - WOUND VAC PLACEd yesterday ID , surgery on consult cont Meropenem and Diflucan pO given once for vaginal discharge Wound cx positive for ESBL and Proteus Contact isolation Pain management Promote ambulation with PT 2. Abdominal wall abscess at site of surgical wound Acute 2 small areas of dehiscence noted draining purulent material 3 Diabetes mellitus, type II accucheck with coverage controlled 4 CHF (congestive heart failure), chronic diastolic on Losartan 5. Atrial fibrillation, chronic with RVR Chronic off anticoag due to her GI bleed cont Cardizem Cardio consulted - Dr Arriaga 6. Asthma ( mild intermittent ) chronic COPD (chronic obstructive pulmonary disease), chronic Atelectasis/Pleural Effusion seen on CT Pulm consulted- Dr Macario Hilario treatments changed Advair to Pulmicort 7. Hypertension chronic , controlled cont Cardizem restart Losartan 8. Hypothyroidism Chronic cont Levothyroxine 9. Mild anemia Hgb 10 chronic , stable 10. Obesity BMI 31 11 DVT prophylaxis Lovenox 12. Vaginal discharge - cultures pending - improving, les sdischarge today - DIFLUCAN PO GIVEN X1
[2018-04-13] MEDS: Pantoprazole 40 mg EC Tab PO SCH (08:23)
[2018-04-13] MEDS: Enoxaparin 40 mg Syringe SC SCH (08:23)
[2018-04-13] MEDS: Olopatadine 0.1% Opht SOLN OU SCH (08:24)
[2018-04-13] MEDS: Budesonide 0.25 mg/2 ml Inhal Susp UD INH SCH ×2 (08:29→19:47)
[2018-04-13] MEDS: Albuterol-Ipratrop 3 mg / 0.5 (3 ml) UD INH SCH ×4 (08:30→19:46)
--- NOTE | 2018-04-13 08:57 | CP.PCM.PN ---
Subjective - Date & Time of Evaluation Date of Evaluation: 04/13/18 Time of Evaluation: 08:57 - Subjective Subjective: Interim events and entries in the EMR were reviewed. Case was discussed with the hospitalist this morning. Vital signs remained stable and the patient remains afebrile. Hemoglobin is stable at 10.2 g platelets are stable at 228,000. No leukocytosis is noted and chemistries appear normal. Culture has grown Proteus mirabilis and Escherichia coli which are both sensitive to meropenem which the patient has been receiving. She has received approximate 7 days of antibiotic therapy thus far. Mention of vaginal discharge and the possibility of an enterovaginal fistulous tract is entertained. A specimen has been forwarded to the laboratory for culture. The patient is awake and alert and appears comfortable. Dependent edema in the posterolateral abdominal wall is noted. No other dependent edema is palpated. Her colostomy continues to have minimal liquid drainage. Drainage catheter inserted by interventional radiology continues to have a small volume of purulent material draining. A wound VAC has been applied to the abdominal/surgical wound. The abdomen appears soft and nontender with hypoactive bowel sounds. There is no dullness on percussion of the anterior thorax. Breath sounds are well heard bilaterally both anteriorly as well as posteriorly. No bronchial breath sounds are heard. No audible wheezing. Few scattered dry rales are present in dependent regions. Heart sounds are well heard and the rhythm remains regular. We'll discuss plans for continued care with surgery and infectious disease. Patient may be transferred out of the intensive care unit to a regular medical floor from a respiratory standpoint. Continue current medical/aerosol regimen. Objective - Vital Signs/Intake and Output Vital Signs (last 24 hours): Temp Pulse Resp BP Pulse Ox 98.3 F 88 16 144/74 100 04/13/18 07:52 04/13/18 08:23 04/13/18 08:19 04/13/18 08:23 04/13/18 08:19 Intake and Output: 04/12/18 04/13/18 23:59 11:59 Intake Total 400 292 Output Total 500 Balance -100 292 - Medications Medications: Current Medications Acetaminophen (Tylenol 325mg Tab) 650 mg PO Q6H PRN PRN Reason: Pain, Mild (1-3) Last Admin: 04/12/18 00:06 Dose: 650 mg Acetaminophen (Tylenol 325mg Tab) 650 mg PO Q6H PRN PRN Reason: Fever >100.4 F Acetaminophen (Tylenol 325mg Tab) 650 mg PO Q6 PRN PRN Reason: Fever >100.4 F Albuterol Sulfate (Albuterol 0.083% Inhal [place] (2.5 Mg/3 Ml) Ud) 2.5 mg INH RQ4 PRN PRN Reason: Shortness of Breath Albuterol/Ipratropium (Duoneb 3 Mg/0.5 Mg (3 Ml) Ud) 3 ml INH RQID [facility] Last Admin: 04/13/18 08:30 Dose: 3 ml Atorvastatin Calcium (Lipitor) 40 mg PO QPM [facility] Last Admin: 04/12/18 17:01 Dose: 40 mg Budesonide (Pulmicort Respules) 0.25 mg INH RBID [facility] Last Admin: 04/13/18 08:29 Dose: 0.25 mg Diltiazem HCl (Cardizem) 30 mg PO QID [facility] Last Admin: 04/13/18 08:19 Dose: 30 mg Enoxaparin Sodium (Lovenox) 40 mg SC DAILY [facility] PRN Reason: Protocol Last Admin: 04/13/18 08:23 Dose: 40 mg Meropenem 1 gm/ Sodium (Chloride) 100 mls @ 100 mls/hr IVPB Q8 [facility] PRN Reason: Protocol Last Admin: 04/13/18 08:25 Dose: 100 mls/hr Insulin Human Lispro (Humalog) 0 units SC ACHS [facility] PRN Reason: Protocol Last Admin: 04/13/18 06:58 Dose: Not Given Levothyroxine Sodium (Synthroid) 175 mcg PO DAILY@0630 [facility] Last Admin: 04/13/18 06:57 Dose: 175 mcg Losartan Potassium (Cozaar) 50 mg PO DAILY [facility] Last Admin: 04/13/18 08:23 Dose: 50 mg Morphine Sulfate (Morphine) 2 mg IVP Q4H PRN PRN Reason: Pain, severe (8-10) Last Admin: 04/12/18 02:09 Dose: 2 mg Olopatadine HCl (Patanol 0.1% Opht Soln) 1 drop OU DAILY [facility] Last Admin: 04/13/18 08:24 Dose: 1 drop Ondansetron HCl (Zofran Odt) 4 mg PO Q8H PRN PRN Reason: Nausea/Vomiting Last Admin: 04/12/18 08:34 Dose: 4 mg Pantoprazole Sodium (Protonix Ec Tab) 40 mg PO DAILY [facility] Last Admin: 04/13/18 08:23 Dose: 40 mg Tramadol HCl (Ultram) 50 mg PO TID PRN PRN Reason: Pain, moderate (4-7) Last Admin: 04/12/18 17:05 Dose: 50 mg - Labs Labs: 04/13/18 04:20 04/13/18 04:20 PT 14.9 Seconds (9.8-13.1) H 04/07/18 08:22 INR 1.3 (0.9-1.2) H 04/07/18 08:22 Assessment and Plan (1) Asthma Status: Chronic (2) Pelvic abscess Status: Acute (3) Atelectasis Status: Acute (4) BAR (obstructive sleep apnea) Status: Chronic (5) Pleural effusion Status: Chronic
--- NOTE | 2018-04-13 08:58 | CP.PCM.PN ---
Subjective - Date & Time of Evaluation Date of Evaluation: 04/13/18 Time of Evaluation: 06:45 - Subjective Subjective: Patient seen and examined. No acute events over night. No complaints. Objective - Vital Signs/Intake and Output Vital Signs (last 24 hours): Temp Pulse Resp BP Pulse Ox 98.3 F 88 16 144/74 100 04/13/18 07:52 04/13/18 08:23 04/13/18 08:19 04/13/18 08:23 04/13/18 08:19 Intake and Output: 04/13/18 04/13/18 06:59 18:59 Intake Total 172 120 Output Total 200 Balance -28 120 - Medications Medications: Current Medications Acetaminophen (Tylenol 325mg Tab) 650 mg PO Q6H PRN PRN Reason: Pain, Mild (1-3) Last Admin: 04/12/18 00:06 Dose: 650 mg Acetaminophen (Tylenol 325mg Tab) 650 mg PO Q6H PRN PRN Reason: Fever >100.4 F Acetaminophen (Tylenol 325mg Tab) 650 mg PO Q6 PRN PRN Reason: Fever >100.4 F Albuterol Sulfate (Albuterol 0.083% Inhal [place] (2.5 Mg/3 Ml) Ud) 2.5 mg INH RQ4 PRN PRN Reason: Shortness of Breath Albuterol/Ipratropium (Duoneb 3 Mg/0.5 Mg (3 Ml) Ud) 3 ml INH RQID [facility] Last Admin: 04/13/18 08:30 Dose: 3 ml Atorvastatin Calcium (Lipitor) 40 mg PO QPM [facility] Last Admin: 04/12/18 17:01 Dose: 40 mg Budesonide (Pulmicort Respules) 0.25 mg INH RBID [facility] Last Admin: 04/13/18 08:29 Dose: 0.25 mg Diltiazem HCl (Cardizem) 30 mg PO QID [facility] Last Admin: 04/13/18 08:19 Dose: 30 mg Enoxaparin Sodium (Lovenox) 40 mg SC DAILY [facility] PRN Reason: Protocol Last Admin: 04/13/18 08:23 Dose: 40 mg Meropenem 1 gm/ Sodium (Chloride) 100 mls @ 100 mls/hr IVPB Q8 [facility] PRN Reason: Protocol Last Admin: 04/13/18 08:25 Dose: 100 mls/hr Insulin Human Lispro (Humalog) 0 units SC ACHS [facility] PRN Reason: Protocol Last Admin: 04/13/18 06:58 Dose: Not Given Levothyroxine Sodium (Synthroid) 175 mcg PO DAILY@0630 [facility] Last Admin: 04/13/18 06:57 Dose: 175 mcg Losartan Potassium (Cozaar) 50 mg PO DAILY [facility] Last Admin: 04/13/18 08:23 Dose: 50 mg Morphine Sulfate (Morphine) 2 mg IVP Q4H PRN PRN Reason: Pain, severe (8-10) Last Admin: 04/12/18 02:09 Dose: 2 mg Olopatadine HCl (Patanol 0.1% Opht Soln) 1 drop OU DAILY [facility] Last Admin: 04/13/18 08:24 Dose: 1 drop Ondansetron HCl (Zofran Odt) 4 mg PO Q8H PRN PRN Reason: Nausea/Vomiting Last Admin: 04/12/18 08:34 Dose: 4 mg Pantoprazole Sodium (Protonix Ec Tab) 40 mg PO DAILY [facility] Last Admin: 04/13/18 08:23 Dose: 40 mg Tramadol HCl (Ultram) 50 mg PO TID PRN PRN Reason: Pain, moderate (4-7) Last Admin: 04/12/18 17:05 Dose: 50 mg - Labs Labs: 04/13/18 04:20 04/13/18 04:20 PT 14.9 Seconds (9.8-13.1) H 04/07/18 08:22 INR 1.3 (0.9-1.2) H 04/07/18 08:22 - Constitutional Appears: No Acute Distress - Head Exam Head Exam: NORMOCEPHALIC - Eye Exam Eye Exam: Normal appearance - ENT Exam ENT Exam: Mucous Membranes Moist - Respiratory Exam Respiratory Exam: NORMAL BREATHING PATTERN - Cardiovascular Exam Cardiovascular Exam: +S1, +S2 - GI/Abdominal Exam GI & Abdominal Exam: Soft Additional comments: Purulent drainage from abdominal wound - Neurological Exam Neurological Exam: Alert, Awake, Oriented x3 - Psychiatric Exam Psychiatric exam: Normal Mood - Skin Skin Exam: Dry, Intact, Warm Assessment and Plan - Assessment and Plan (Free Text) Assessment: 87F w/ intra abdominal abscess, rectal stump vaginal fistula formation Plan: - Monitor IR drain - c/w Regular diet - IV Abx - Abdominal wound vac applied, change every 72 hrs - gently flush IR drain BID -Further recs per Dr. Danyel Kolb PGY2
[2018-04-13] MEDS ORDERED: Fluconazole 150 MG TAB PO ONE (12:41)
--- NOTE | 2018-04-13 17:36 | PN ---
DATE: 04/13/2018 SUBJECTIVE: Katie Ward is seen on Friday. White count is normal. Hemoglobin is stable. She is weak and has nausea from no known reason. Chest x-ray on the showed pulmonary vascular congestion. The drainage from the IR drain is much down. The drainage from the vagina is much improved. We will follow a little bit longer, but probably discontinue the IR drain soon. Peter Montaño MD
[2018-04-14] MEDS: Meropenem 1 GM in Sodium Chloride 0.9% 100 ML IVPB SCH ×3 (00:02→16:42)
[2018-04-14] MEDS: Levothyroxine 175 MCG TAB PO SCH (05:35)
[2018-04-14 06:14] LABS: HEMOGLOBIN 10.2 g/dL (12.0-16.0); MEAN CELL VOLUME 91.3 fl (81.0-99.0); MEAN CORPUSCULAR HEMOGLOBIN 30.7 pg (27.0-31.0); MEAN CORPUSCULAR HGB CONC 33.6 g/dL (33.0-37.0); RBC 3.31 Mil/uL (3.80-5.20); RED CELL DISTRIBUTION WIDTH 20.4 % (11.5-14.5); WHITE BLOOD COUNT 8.8 K/uL (4.8-10.8)
[2018-04-14 06:19] LABS: BLOOD UREA NITROGEN 4 mg/dl (7-17); CALCIUM 7.6 mg/dL (8.4-10.2); GFR AFRICAN-AMERICAN > 60; GFR NON-AFRICAN AMERICAN > 60
[2018-04-14] MEDS: Albuterol-Ipratrop 3 mg / 0.5 (3 ml) UD INH SCH ×4 (07:38→19:01)
[2018-04-14] MEDS: Budesonide 0.25 mg/2 ml Inhal Susp UD INH SCH ×2 (07:38→19:02)
--- NOTE | 2018-04-14 08:06 | CP.PCM.PN ---
Subjective - Date & Time of Evaluation Date of Evaluation: 04/14/18 Time of Evaluation: 08:01 - Subjective Subjective: Surgery Progress Note - Dr. Nicholson 87F seen and examined this AM. No acute events overnight. C/o mild stomach pain. Objective - Vital Signs/Intake and Output Vital Signs (last 24 hours): Temp Pulse Resp BP Pulse Ox 97.8 F 83 19 134/74 97 04/14/18 01:48 04/14/18 01:48 04/14/18 01:48 04/14/18 01:48 04/14/18 01:48 Intake and Output: 04/14/18 04/14/18 06:59 18:59 Intake Total 120 Output Total 150 Balance -30 - Medications Medications: Current Medications Acetaminophen (Tylenol 325mg Tab) 650 mg PO Q6H PRN PRN Reason: Pain, Mild (1-3) Last Admin: 04/12/18 00:06 Dose: 650 mg Acetaminophen (Tylenol 325mg Tab) 650 mg PO Q6H PRN PRN Reason: Fever >100.4 F Acetaminophen (Tylenol 325mg Tab) 650 mg PO Q6 PRN PRN Reason: Fever >100.4 F Albuterol Sulfate (Albuterol 0.083% Inhal [place] (2.5 Mg/3 Ml) Ud) 2.5 mg INH RQ4 PRN PRN Reason: Shortness of Breath Albuterol/Ipratropium (Duoneb 3 Mg/0.5 Mg (3 Ml) Ud) 3 ml INH RQID [facility] Last Admin: 04/14/18 07:38 Dose: 3 ml Atorvastatin Calcium (Lipitor) 40 mg PO QPM [facility] Last Admin: 04/13/18 17:06 Dose: 40 mg Budesonide (Pulmicort Respules) 0.25 mg INH RBID [facility] Last Admin: 04/14/18 07:38 Dose: 0.25 mg Diltiazem HCl (Cardizem) 30 mg PO QID [facility] Last Admin: 04/13/18 21:11 Dose: 30 mg Enoxaparin Sodium (Lovenox) 40 mg SC DAILY [facility] PRN Reason: Protocol Last Admin: 04/13/18 08:23 Dose: 40 mg Meropenem 1 gm/ Sodium (Chloride) 100 mls @ 100 mls/hr IVPB Q8 [facility] PRN Reason: Protocol Last Admin: 04/14/18 00:02 Dose: 100 mls/hr Insulin Human Lispro (Humalog) 0 units SC ACHS [facility] PRN Reason: Protocol Last Admin: 04/13/18 22:23 Dose: Not Given Levothyroxine Sodium (Synthroid) 175 mcg PO DAILY@0630 [facility] Last Admin: 04/14/18 05:35 Dose: 175 mcg Losartan Potassium (Cozaar) 50 mg PO DAILY [facility] Last Admin: 04/13/18 08:23 Dose: 50 mg Morphine Sulfate (Morphine) 2 mg IVP Q4H PRN PRN Reason: Pain, severe (8-10) Last Admin: 04/12/18 02:09 Dose: 2 mg Olopatadine HCl (Patanol 0.1% Opht Soln) 1 drop OU DAILY [facility] Last Admin: 04/13/18 08:24 Dose: 1 drop Ondansetron HCl (Zofran Odt) 4 mg PO Q8H PRN PRN Reason: Nausea/Vomiting Last Admin: 04/14/18 03:51 Dose: 4 mg Pantoprazole Sodium (Protonix Ec Tab) 40 mg PO DAILY [facility] Last Admin: 04/13/18 08:23 Dose: 40 mg Tramadol HCl (Ultram) 50 mg PO TID PRN PRN Reason: Pain, moderate (4-7) Last Admin: 04/13/18 21:35 Dose: 50 mg - Labs Labs: 04/14/18 05:35 04/14/18 05:35 PT 14.9 Seconds (9.8-13.1) H 04/07/18 08:22 INR 1.3 (0.9-1.2) H 04/07/18 08:22 - Constitutional Appears: Non-toxic, No Acute Distress - Head Exam Head Exam: ATRAUMATIC, NORMAL INSPECTION - Eye Exam Eye Exam: EOMI, Normal appearance Pupil Exam: NORMAL ACCOMODATION - ENT Exam ENT Exam: Mucous Membranes Moist - Respiratory Exam Respiratory Exam: NORMAL BREATHING PATTERN. absent: Respiratory Distress - Cardiovascular Exam Cardiovascular Exam: REGULAR RHYTHM - GI/Abdominal Exam GI & Abdominal Exam: Soft Additional comments: Purulent drainage from abdominal wound - Extremities Exam Extremities Exam: Full ROM - Neurological Exam Neurological Exam: Alert, Awake, Oriented x3 - Psychiatric Exam Psychiatric exam: Normal Affect, Normal Mood - Skin Skin Exam: Dry, Warm Assessment and Plan - Assessment and Plan (Free Text) Assessment: 87F w/ intra abdominal abscess, rectal stump vaginal fistula formation Plan: - Monitor IR drain - c/w Regular diet - IV Abx - Continue abdominal wound vac - change every 72 hrs - gently flush IR drain BID - Further recs per Dr. Montaño
[2018-04-14] MEDS: Enoxaparin 40 mg Syringe SC SCH (08:23)
[2018-04-14] MEDS: Insulin Lispro (humaLOG) 100 Units/ml Inj SC SCH ×4 (08:31→22:07)
[2018-04-14] MEDS: Olopatadine 0.1% Opht SOLN OU SCH (08:32)
[2018-04-14] MEDS: Pantoprazole 40 mg EC Tab PO SCH (08:32)
[2018-04-14] MEDS ORDERED: Fluconazole IV 100mg/50 ml NS 50 ML IVPB SCH (09:00)
--- NOTE | 2018-04-14 10:56 | CP.PCM.PN ---
Subjective - Date & Time of Evaluation Date of Evaluation: 04/14/18 Time of Evaluation: 10:52 - Subjective Subjective: Nausea and abdominal pain this morning. Did eat some pizza last night. Vital signs and labs remain stable. Colostomy is functioning this morning with formed brown stool. Minimal drainage from pigtail catheter. Scant vaginal drainage reported. Small amount of drainage from wound-vac. Abdomen is soft with good bowel sounds. Lungs remain clear anteriorly as well as posteriorly. Spoke with her son who is at the bedside. Will maintain present plan of therapy. Objective - Vital Signs/Intake and Output Vital Signs (last 24 hours): Temp Pulse Resp BP Pulse Ox 98.4 F 95 H 97 H 149/71 95 04/14/18 08:06 04/14/18 08:29 04/14/18 08:28 04/14/18 08:29 04/14/18 08:28 Intake and Output: 04/13/18 04/14/18 23:59 11:59 Intake Total 1040 Output Total 550 Balance 490 - Medications Medications: Current Medications Acetaminophen (Tylenol 325mg Tab) 650 mg PO Q6H PRN PRN Reason: Pain, Mild (1-3) Last Admin: 04/12/18 00:06 Dose: 650 mg Acetaminophen (Tylenol 325mg Tab) 650 mg PO Q6H PRN PRN Reason: Fever >100.4 F Acetaminophen (Tylenol 325mg Tab) 650 mg PO Q6 PRN PRN Reason: Fever >100.4 F Albuterol Sulfate (Albuterol 0.083% Inhal [place] (2.5 Mg/3 Ml) Ud) 2.5 mg INH RQ4 PRN PRN Reason: Shortness of Breath Albuterol/Ipratropium (Duoneb 3 Mg/0.5 Mg (3 Ml) Ud) 3 ml INH RQID [facility] Last Admin: 04/14/18 07:38 Dose: 3 ml Atorvastatin Calcium (Lipitor) 40 mg PO QPM [facility] Last Admin: 04/13/18 17:06 Dose: 40 mg Budesonide (Pulmicort Respules) 0.25 mg INH RBID [facility] Last Admin: 04/14/18 07:38 Dose: 0.25 mg Diltiazem HCl (Cardizem) 30 mg PO QID [facility] Last Admin: 04/14/18 08:28 Dose: 30 mg Enoxaparin Sodium (Lovenox) 40 mg SC DAILY [facility] PRN Reason: Protocol Last Admin: 04/14/18 08:23 Dose: 40 mg Meropenem 1 gm/ Sodium (Chloride) 100 mls @ 100 mls/hr IVPB Q8 [facility] PRN Reason: Protocol Last Admin: 04/14/18 08:31 Dose: 100 mls/hr Fluconazole (Diflucan Iv 400mg/200ml Ns) 200 mls @ 100 mls/hr IVPB DAILY [facility] PRN Reason: Protocol Insulin Human Lispro (Humalog) 0 units SC ACHS [facility] PRN Reason: Protocol Last Admin: 04/14/18 08:31 Dose: Not Given Levothyroxine Sodium (Synthroid) 175 mcg PO DAILY@0630 [facility] Last Admin: 04/14/18 05:35 Dose: 175 mcg Losartan Potassium (Cozaar) 50 mg PO DAILY [facility] Last Admin: 04/14/18 08:29 Dose: 50 mg Morphine Sulfate (Morphine) 2 mg IVP Q4H PRN PRN Reason: Pain, severe (8-10) Last Admin: 04/12/18 02:09 Dose: 2 mg Olopatadine HCl (Patanol 0.1% Opht Soln) 1 drop OU DAILY [facility] Last Admin: 04/14/18 08:32 Dose: 1 drop Ondansetron HCl (Zofran Odt) 4 mg PO Q8H PRN PRN Reason: Nausea/Vomiting Last Admin: 04/14/18 03:51 Dose: 4 mg Pantoprazole Sodium (Protonix Ec Tab) 40 mg PO DAILY [facility] Last Admin: 04/14/18 08:32 Dose: 40 mg Tramadol HCl (Ultram) 50 mg PO TID PRN PRN Reason: Pain, moderate (4-7) Last Admin: 04/14/18 10:30 Dose: 50 mg - Labs Labs: 04/14/18 05:35 04/14/18 05:35 PT 14.9 Seconds (9.8-13.1) H 04/07/18 08:22 INR 1.3 (0.9-1.2) H 04/07/18 08:22 Assessment and Plan (1) Asthma Status: Chronic (2) Pelvic abscess Status: Acute (3) Atelectasis Status: Acute (4) BAR (obstructive sleep apnea) Status: Chronic (5) Pleural effusion Status: Chronic
--- NOTE | 2018-04-14 11:27 | CP.PCM.PN ---
Subjective - Date & Time of Evaluation Date of Evaluation: 04/14/18 Time of Evaluation: 10:45 - Subjective Subjective: Pt is afebrile complains of gassiness lower abd pain sl nausea, no vomiting no CP no SOB Minimal drainage from Pigtail catheter Wound Vac - minimal drainage some yellow stool in the Colostomy. Objective - Vital Signs/Intake and Output Vital Signs (last 24 hours): Temp Pulse Resp BP Pulse Ox 98.4 F 95 H 97 H 149/71 95 04/14/18 08:06 04/14/18 08:29 04/14/18 08:28 04/14/18 08:29 04/14/18 08:28 Intake and Output: 04/14/18 04/14/18 06:59 18:59 Intake Total 120 Output Total 150 Balance -30 - Medications Medications: Current Medications Acetaminophen (Tylenol 325mg Tab) 650 mg PO Q6H PRN PRN Reason: Pain, Mild (1-3) Last Admin: 04/12/18 00:06 Dose: 650 mg Acetaminophen (Tylenol 325mg Tab) 650 mg PO Q6H PRN PRN Reason: Fever >100.4 F Acetaminophen (Tylenol 325mg Tab) 650 mg PO Q6 PRN PRN Reason: Fever >100.4 F Albuterol Sulfate (Albuterol 0.083% Inhal [place] (2.5 Mg/3 Ml) Ud) 2.5 mg INH RQ4 PRN PRN Reason: Shortness of Breath Albuterol/Ipratropium (Duoneb 3 Mg/0.5 Mg (3 Ml) Ud) 3 ml INH RQID [facility] Last Admin: 04/14/18 11:25 Dose: 3 ml Atorvastatin Calcium (Lipitor) 40 mg PO QPM [facility] Last Admin: 04/13/18 17:06 Dose: 40 mg Budesonide (Pulmicort Respules) 0.25 mg INH RBID [facility] Last Admin: 04/14/18 07:38 Dose: 0.25 mg Diltiazem HCl (Cardizem) 30 mg PO QID [facility] Last Admin: 04/14/18 08:28 Dose: 30 mg Enoxaparin Sodium (Lovenox) 40 mg SC DAILY [facility] PRN Reason: Protocol Last Admin: 04/14/18 08:23 Dose: 40 mg Meropenem 1 gm/ Sodium (Chloride) 100 mls @ 100 mls/hr IVPB Q8 [facility] PRN Reason: Protocol Last Admin: 04/14/18 08:31 Dose: 100 mls/hr Fluconazole (Diflucan Iv 400mg/200ml Ns) 200 mls @ 100 mls/hr IVPB DAILY [facility] PRN Reason: Protocol Insulin Human Lispro (Humalog) 0 units SC ACHS [facility] PRN Reason: Protocol Last Admin: 04/14/18 08:31 Dose: Not Given Levothyroxine Sodium (Synthroid) 175 mcg PO DAILY@0630 [facility] Last Admin: 04/14/18 05:35 Dose: 175 mcg Losartan Potassium (Cozaar) 50 mg PO DAILY [facility] Last Admin: 04/14/18 08:29 Dose: 50 mg Morphine Sulfate (Morphine) 2 mg IVP Q4H PRN PRN Reason: Pain, severe (8-10) Last Admin: 04/12/18 02:09 Dose: 2 mg Olopatadine HCl (Patanol 0.1% Opht Soln) 1 drop OU DAILY [facility] Last Admin: 04/14/18 08:32 Dose: 1 drop Ondansetron HCl (Zofran Odt) 4 mg PO Q8H PRN PRN Reason: Nausea/Vomiting Last Admin: 04/14/18 10:55 Dose: 4 mg Pantoprazole Sodium (Protonix Ec Tab) 40 mg PO DAILY [facility] Last Admin: 04/14/18 08:32 Dose: 40 mg Tramadol HCl (Ultram) 50 mg PO TID PRN PRN Reason: Pain, moderate (4-7) Last Admin: 04/14/18 10:30 Dose: 50 mg - Labs Labs: 04/14/18 05:35 04/14/18 05:35 PT 14.9 Seconds (9.8-13.1) H 04/07/18 08:22 INR 1.3 (0.9-1.2) H 04/07/18 08:22 - Constitutional Appears: alert, oriented, not in distress - Head Exam Head Exam: ATRAUMATIC, NORMAL INSPECTION, NORMOCEPHALIC - Eye Exam Eye Exam: EOMI, Normal appearance Pupil Exam: NORMAL ACCOMODATION - ENT Exam ENT Exam: Mucous Membranes Dry, Normal External Ear Exam - Neck Exam Neck Exam: Full ROM. absent: Meningismus - Respiratory Exam Respiratory Exam: Rales, Rhonchi, NORMAL BREATHING PATTERN. absent: Wheezes, Respiratory Distress - Cardiovascular Exam Cardiovascular Exam: Irregular Rhythm, +S1, +S2 - GI/Abdominal Exam GI & Abdominal Exam: Soft, Tenderness (mild lower abd tenderness), Normal Bowel Sounds Additional comments: Surgical Wound with area of dehiscence- Wound Vac placed Left Colostomy with yellow stool Right pigtail catheter: minimal drainage - Extremities Exam Extremities Exam: Full ROM, Normal Capillary Refill. absent: Calf Tenderness, Pedal Edema - Back Exam Back Exam: Full ROM. absent: CVA tenderness (L), CVA tenderness (R) - Neurological Exam Neurological Exam: Alert, Awake, CN II-XII Intact, Oriented x3 - Psychiatric Exam Psychiatric exam: normal affect/mood - Skin Skin Exam: Dry, Normal Color, Warm Assessment and Plan - Assessment and Plan (Free Text) Assessment: 87 y/o lady, well known to the Hospitalist team from previous admission last month presented with drainage from surgical scar. She had Colon Perforation after Colonoscopy and underwent Sigmoid Resection and Colostomy. She was d/c to a [facility] on 03/05. She came back because of abdominal pain, chills and purulent drainage from her surgical wound. CT of the abdomen/Pelvis showed Large pelvic abscess collection closely associated with the rectal stump, raising suspicion for leak. Surgery , ID and IR consulted . She was admitted and started on IV antibiotics and underwent IR drainage of abscess. Wound cultures reported positive for ESBL E coli and Proteus. She is hemodynamically stable, afebrile with normal WBC count while on Meropenem and Diflucan. Pigtail with minimal drainage last 24 hours . Still with purulent drainage from openings of surgical scar. 1.Sepsis sec to Pelvic Abscess and Abdominal Wound Abscess s/p CT guided Incision and Drainage and placement of pigtail catheter done by IR. some drainage from the Pigtail catheter Wound Vac placed on the midline abd surgical wound ID and surgery on consult cont Meropenem and Diflucan IV Wound cx positive for ESBL and Proteus Contact isolation Pain management Promote ambulation with PT 2. Abdominal wall abscess at site of surgical wound Acute 2 small areas of dehiscence noted draining purulent material Wound Vac placed 3 Diabetes mellitus, type II accucheck with coverage controlled 4 CHF (congestive heart failure), chronic diastolic on Losartan 5. Atrial fibrillation, chronic with RVR Chronic off anticoag due to her GI bleed cont Cardizem Cardio consulted - Dr Arriaga 6. Asthma ( mild intermittent ) chronic COPD (chronic obstructive pulmonary disease), chronic Atelectasis/Pleural Effusion seen on CT Pulm consulted- Dr Macario Hilario treatments changed Advair to Pulmicort 7. Hypertension chronic , controlled cont Cardizem and Losartan 8. Hypothyroidism Chronic cont Levothyroxine 9. Mild anemia Hgb 10 chronic , stable 10. Obesity BMI 31 11 DVT prophylaxis Lovenox
[2018-04-14] MEDS: Fluconazole IV 400mg/200ml NS 200 ML IVPB SCH (11:43)
[2018-04-14] MEDS: Simethicone 80 mg Chewtab PO PRN ×2 (11:53→16:47)
[2018-04-14] MEDS ORDERED: Magnesium Sulfate 2 gm/50 ml 2 GM/50 ML BAG IVPB ONE (16:40)
[2018-04-14] MEDS: Potassium Phosphate 30 MMOLE in Sodium Chloride 0.9% 250 ML IV ONE ×2 (17:32→21:17)
[2018-04-15] MEDS: Meropenem 1 GM in Sodium Chloride 0.9% 100 ML IVPB SCH ×3 (01:02→16:59)
[2018-04-15] MEDS: Levothyroxine 175 MCG TAB PO SCH (06:32)
[2018-04-15 06:50] LABS: BASO % 0.5 % (0.0-2.0); EOS # 0.1 K/uL (0.0-0.7); EOS % 1.2 % (0.0-4.0); HEMOGLOBIN 10.8 g/dL (12.0-16.0); LYMPH # 3.3 K/uL (1.0-4.3); LYMPH % 35.1 % (20.0-40.0); MEAN CELL VOLUME 91.4 fl (81.0-99.0); MEAN CORPUSCULAR HGB CONC 32.9 g/dL (33.0-37.0); MONO # 0.8 K/uL (0.0-0.8); MONO % 8.2 % (0.0-10.0); NEUT # 5.1 K/uL (1.8-7.0); NRBC % 0.1 % (0.0-0.0); RBC 3.58 Mil/uL (3.80-5.20); RED CELL DISTRIBUTION WIDTH 21.1 % (11.5-14.5); WHITE BLOOD COUNT 9.3 K/uL (4.8-10.8)
[2018-04-15 07:33] LABS: ALB/GLOB RATIO 0.6 (1.0-2.1); ALT/SGPT 22 U/L (9-52); AST/SGOT 47 U/L (14-36); BLOOD UREA NITROGEN 5 mg/dl (7-17); CALCIUM 7.6 mg/dL (8.4-10.2); GFR AFRICAN-AMERICAN > 60; GFR NON-AFRICAN AMERICAN > 60
[2018-04-15] MEDS: Budesonide 0.25 mg/2 ml Inhal Susp UD INH SCH ×2 (07:57→19:18)
[2018-04-15] MEDS: Albuterol-Ipratrop 3 mg / 0.5 (3 ml) UD INH SCH ×4 (07:57→19:18)
[2018-04-15] MEDS: Insulin Lispro (humaLOG) 100 Units/ml Inj SC SCH ×4 (08:23→21:43)
[2018-04-15] MEDS: Olopatadine 0.1% Opht SOLN OU SCH (08:35)
[2018-04-15] MEDS: Enoxaparin 40 mg Syringe SC SCH (08:37)
[2018-04-15] MEDS: Simethicone 80 mg Chewtab PO PRN (08:51)
[2018-04-15] MEDS: Fluconazole IV 400mg/200ml NS 200 ML IVPB SCH (09:36)
[2018-04-15] MEDS: Pantoprazole 40 mg EC Tab PO SCH (09:37)
--- NOTE | 2018-04-15 11:29 | CP.PCM.PN ---
Subjective - Date & Time of Evaluation Date of Evaluation: 04/15/18 Time of Evaluation: 11:29 - Subjective Subjective: Seen on morning rounds and the medical floor. She does appear to be slightly improved from the day prior. Her vital signs remain stable and she continues to be afebrile. The colostomy appears to be functioning at this time. A small amount of drainage is coming from the pigtail catheter. The vaginal discharge appears to have diminished significantly. She continues to complain of some discomfort in the abdomen and some nausea but there is no vomiting. Her oral intake is improving. The neck is supple and trachea is midline. There is no neck vein distention. Breath sounds are well heard bilaterally with few dry rales in the lower lobes. No wheezes or bronchial breath sounds. Heart sounds are well heard and the rhythm is regular. Continue current regimen and increase mobilization as tolerated. Increase oral intake as tolerated. Objective - Vital Signs/Intake and Output Vital Signs (last 24 hours): Temp Pulse Resp BP Pulse Ox 97.9 F 84 19 143/71 96 04/15/18 08:10 04/15/18 08:36 04/15/18 08:34 04/15/18 08:36 04/15/18 08:34 Intake and Output: 04/14/18 04/15/18 23:59 11:59 Output Total 55 Balance -55 - Medications Medications: Current Medications Acetaminophen (Tylenol 325mg Tab) 650 mg PO Q6H PRN PRN Reason: Pain, Mild (1-3) Last Admin: 04/12/18 00:06 Dose: 650 mg Acetaminophen (Tylenol 325mg Tab) 650 mg PO Q6H PRN PRN Reason: Fever >100.4 F Acetaminophen (Tylenol 325mg Tab) 650 mg PO Q6 PRN PRN Reason: Fever >100.4 F Albuterol Sulfate (Albuterol 0.083% Inhal [place] (2.5 Mg/3 Ml) Ud) 2.5 mg INH RQ4 PRN PRN Reason: Shortness of Breath Albuterol/Ipratropium (Duoneb 3 Mg/0.5 Mg (3 Ml) Ud) 3 ml INH RQID [facility] Last Admin: 04/15/18 11:07 Dose: 3 ml Atorvastatin Calcium (Lipitor) 40 mg PO QPM [facility] Last Admin: 04/14/18 17:17 Dose: 40 mg Budesonide (Pulmicort Respules) 0.25 mg INH RBID [facility] Last Admin: 04/15/18 07:57 Dose: 0.25 mg Diltiazem HCl (Cardizem) 30 mg PO QID [facility] Last Admin: 04/15/18 08:34 Dose: 30 mg Enoxaparin Sodium (Lovenox) 40 mg SC DAILY [facility] PRN Reason: Protocol Last Admin: 04/15/18 08:37 Dose: 40 mg Meropenem 1 gm/ Sodium (Chloride) 100 mls @ 100 mls/hr IVPB Q8 [facility] PRN Reason: Protocol Last Admin: 04/15/18 08:39 Dose: 100 mls/hr Fluconazole (Diflucan Iv 400mg/200ml Ns) 200 mls @ 100 mls/hr IVPB DAILY [facility] PRN Reason: Protocol Last Admin: 04/15/18 09:36 Dose: 100 mls/hr Insulin Human Lispro (Humalog) 0 units SC ACHS [facility] PRN Reason: Protocol Last Admin: 04/15/18 08:23 Dose: Not Given Levothyroxine Sodium (Synthroid) 175 mcg PO DAILY@0630 [facility] Last Admin: 04/15/18 06:32 Dose: 175 mcg Losartan Potassium (Cozaar) 50 mg PO DAILY [facility] Last Admin: 04/15/18 08:36 Dose: 50 mg Morphine Sulfate (Morphine) 2 mg IVP Q4H PRN PRN Reason: Pain, severe (8-10) Last Admin: 04/12/18 02:09 Dose: 2 mg Olopatadine HCl (Patanol 0.1% Opht Soln) 1 drop OU DAILY [facility] Last Admin: 04/15/18 08:35 Dose: 1 drop Ondansetron HCl (Zofran Odt) 4 mg PO Q6 [facility] Last Admin: 04/15/18 08:35 Dose: 4 mg Pantoprazole Sodium (Protonix Ec Tab) 40 mg PO DAILY [facility] Last Admin: 04/15/18 09:37 Dose: 40 mg Simethicone (Mylicon Chew Tab) 80 mg PO QID PRN PRN Reason: Flatulence Last Admin: 04/15/18 08:51 Dose: 80 mg Tramadol HCl (Ultram) 50 mg PO TID PRN PRN Reason: Pain, moderate (4-7) Last Admin: 04/15/18 08:34 Dose: 50 mg - Labs Labs: 04/15/18 05:40 04/15/18 05:40 PT 14.9 Seconds (9.8-13.1) H 04/07/18 08:22 INR 1.3 (0.9-1.2) H 04/07/18 08:22 Assessment and Plan (1) Asthma Status: Chronic (2) Pelvic abscess Status: Acute (3) Atelectasis Status: Acute (4) BAR (obstructive sleep apnea) Status: Chronic (5) Pleural effusion Status: Chronic
--- NOTE | 2018-04-15 13:08 | CP.PCM.PN ---
Subjective - Date & Time of Evaluation Date of Evaluation: 04/15/18 Time of Evaluation: 09:55 - Subjective Subjective: Surgery- Dr. Montaño Patient seen and examined at bedside this AM. complaining of nausea, no vomiting. Good output from ostomy. [place] and patent. Wound vac on 50cc or serosang drainage. Denies: fevers, chills, vomiting, diarrhea Objective - Vital Signs/Intake and Output Vital Signs (last 24 hours): Temp Pulse Resp BP Pulse Ox 97.9 F 88 19 112/67 95 04/15/18 08:10 04/15/18 12:58 04/15/18 12:58 04/15/18 12:58 04/15/18 12:58 - Medications Medications: Current Medications Acetaminophen (Tylenol 325mg Tab) 650 mg PO Q6H PRN PRN Reason: Pain, Mild (1-3) Last Admin: 04/12/18 00:06 Dose: 650 mg Acetaminophen (Tylenol 325mg Tab) 650 mg PO Q6H PRN PRN Reason: Fever >100.4 F Acetaminophen (Tylenol 325mg Tab) 650 mg PO Q6 PRN PRN Reason: Fever >100.4 F Albuterol Sulfate (Albuterol 0.083% Inhal [place] (2.5 Mg/3 Ml) Ud) 2.5 mg INH RQ4 PRN PRN Reason: Shortness of Breath Albuterol/Ipratropium (Duoneb 3 Mg/0.5 Mg (3 Ml) Ud) 3 ml INH RQID [facility] Last Admin: 04/15/18 11:07 Dose: 3 ml Atorvastatin Calcium (Lipitor) 40 mg PO QPM [facility] Last Admin: 04/14/18 17:17 Dose: 40 mg Budesonide (Pulmicort Respules) 0.25 mg INH RBID [facility] Last Admin: 04/15/18 07:57 Dose: 0.25 mg Diltiazem HCl (Cardizem) 30 mg PO QID [facility] Last Admin: 04/15/18 12:58 Dose: 30 mg Enoxaparin Sodium (Lovenox) 40 mg SC DAILY [facility] PRN Reason: Protocol Last Admin: 04/15/18 08:37 Dose: 40 mg Meropenem 1 gm/ Sodium (Chloride) 100 mls @ 100 mls/hr IVPB Q8 [facility] PRN Reason: Protocol Last Admin: 04/15/18 08:39 Dose: 100 mls/hr Fluconazole (Diflucan Iv 400mg/200ml Ns) 200 mls @ 100 mls/hr IVPB DAILY [facility] PRN Reason: Protocol Last Admin: 04/15/18 09:36 Dose: 100 mls/hr Insulin Human Lispro (Humalog) 0 units SC ACHS [facility] PRN Reason: Protocol Last Admin: 04/15/18 11:45 Dose: Not Given Levothyroxine Sodium (Synthroid) 175 mcg PO DAILY@0630 [facility] Last Admin: 04/15/18 06:32 Dose: 175 mcg Losartan Potassium (Cozaar) 50 mg PO DAILY [facility] Last Admin: 04/15/18 08:36 Dose: 50 mg Morphine Sulfate (Morphine) 2 mg IVP Q4H PRN PRN Reason: Pain, severe (8-10) Last Admin: 04/12/18 02:09 Dose: 2 mg Olopatadine HCl (Patanol 0.1% Opht Soln) 1 drop OU DAILY [facility] Last Admin: 04/15/18 08:35 Dose: 1 drop Ondansetron HCl (Zofran Odt) 4 mg PO Q6 PRN PRN Reason: Nausea/Vomiting Pantoprazole Sodium (Protonix Ec Tab) 40 mg PO DAILY [facility] Last Admin: 04/15/18 09:37 Dose: 40 mg Simethicone (Mylicon Chew Tab) 80 mg PO QID PRN PRN Reason: Flatulence Last Admin: 04/15/18 08:51 Dose: 80 mg Tramadol HCl (Ultram) 50 mg PO TID PRN PRN Reason: Pain, moderate (4-7) Last Admin: 04/15/18 08:34 Dose: 50 mg - Labs Labs: 04/15/18 05:40 04/15/18 05:40 PT 14.9 Seconds (9.8-13.1) H 04/07/18 08:22 INR 1.3 (0.9-1.2) H 04/07/18 08:22 - Constitutional Appears: Non-toxic, No Acute Distress - Head Exam Head Exam: ATRAUMATIC - Eye Exam Eye Exam: EOMI. absent: Scleral icterus - ENT Exam ENT Exam: Mucous Membranes Moist - Respiratory Exam Respiratory Exam: NORMAL BREATHING PATTERN. absent: Accessory Muscle Use, Respiratory Distress - Cardiovascular Exam Cardiovascular Exam: +S1, +S2. absent: Bradycardia, Tachycardia - GI/Abdominal Exam GI & Abdominal Exam: Soft. absent: Distended, Firm, Guarding, Rigid, Tenderness Additional comments: Wound vac on, in place, suction at 125mmHg - Neurological Exam Neurological Exam: Alert, Awake, Oriented x3 - Skin Skin Exam: Intact, Warm Assessment and Plan - Assessment and Plan (Free Text) Assessment: 87F w/ intra abdominal abscess, rectal stump vaginal fistula formation Plan: - Monitor IR drain - c/w Regular diet - IV Abx - Continue abdominal wound vac - change every 72 hrs - continue to flush IR drain - discussed w/ [facility]
--- NOTE | 2018-04-15 13:09 | CP.PCM.PN ---
Subjective - Date & Time of Evaluation Date of Evaluation: 04/15/18 Time of Evaluation: 12:00 - Subjective Subjective: Pt is afebrile still with lower abd discomfort + nausea , no vomiting minimal discharge from the pigtail catheter Wound Vac in place at the midline surgical wound - minimal drainage Poor appetite slight drainage from vaginal Pt denies CP no SOB Objective - Vital Signs/Intake and Output Vital Signs (last 24 hours): Temp Pulse Resp BP Pulse Ox 97.9 F 88 19 112/67 95 04/15/18 08:10 04/15/18 12:58 04/15/18 12:58 04/15/18 12:58 04/15/18 12:58 - Medications Medications: Current Medications Acetaminophen (Tylenol 325mg Tab) 650 mg PO Q6H PRN PRN Reason: Pain, Mild (1-3) Last Admin: 04/12/18 00:06 Dose: 650 mg Acetaminophen (Tylenol 325mg Tab) 650 mg PO Q6H PRN PRN Reason: Fever >100.4 F Acetaminophen (Tylenol 325mg Tab) 650 mg PO Q6 PRN PRN Reason: Fever >100.4 F Albuterol Sulfate (Albuterol 0.083% Inhal [place] (2.5 Mg/3 Ml) Ud) 2.5 mg INH RQ4 PRN PRN Reason: Shortness of Breath Albuterol/Ipratropium (Duoneb 3 Mg/0.5 Mg (3 Ml) Ud) 3 ml INH RQID [facility] Last Admin: 04/15/18 11:07 Dose: 3 ml Atorvastatin Calcium (Lipitor) 40 mg PO QPM [facility] Last Admin: 04/14/18 17:17 Dose: 40 mg Budesonide (Pulmicort Respules) 0.25 mg INH RBID [facility] Last Admin: 04/15/18 07:57 Dose: 0.25 mg Diltiazem HCl (Cardizem) 30 mg PO QID [facility] Last Admin: 04/15/18 12:58 Dose: 30 mg Enoxaparin Sodium (Lovenox) 40 mg SC DAILY [facility] PRN Reason: Protocol Last Admin: 04/15/18 08:37 Dose: 40 mg Meropenem 1 gm/ Sodium (Chloride) 100 mls @ 100 mls/hr IVPB Q8 [facility] PRN Reason: Protocol Last Admin: 04/15/18 08:39 Dose: 100 mls/hr Fluconazole (Diflucan Iv 400mg/200ml Ns) 200 mls @ 100 mls/hr IVPB DAILY [facility] PRN Reason: Protocol Last Admin: 04/15/18 09:36 Dose: 100 mls/hr Insulin Human Lispro (Humalog) 0 units SC ACHS [facility] PRN Reason: Protocol Last Admin: 04/15/18 11:45 Dose: Not Given Levothyroxine Sodium (Synthroid) 175 mcg PO DAILY@0630 [facility] Last Admin: 04/15/18 06:32 Dose: 175 mcg Losartan Potassium (Cozaar) 50 mg PO DAILY [facility] Last Admin: 04/15/18 08:36 Dose: 50 mg Morphine Sulfate (Morphine) 2 mg IVP Q4H PRN PRN Reason: Pain, severe (8-10) Last Admin: 04/12/18 02:09 Dose: 2 mg Olopatadine HCl (Patanol 0.1% Opht Soln) 1 drop OU DAILY [facility] Last Admin: 04/15/18 08:35 Dose: 1 drop Ondansetron HCl (Zofran Odt) 4 mg PO Q6 PRN PRN Reason: Nausea/Vomiting Pantoprazole Sodium (Protonix Ec Tab) 40 mg PO DAILY [facility] Last Admin: 04/15/18 09:37 Dose: 40 mg Simethicone (Mylicon Chew Tab) 80 mg PO QID PRN PRN Reason: Flatulence Last Admin: 04/15/18 08:51 Dose: 80 mg Tramadol HCl (Ultram) 50 mg PO TID PRN PRN Reason: Pain, moderate (4-7) Last Admin: 04/15/18 08:34 Dose: 50 mg - Labs Labs: 04/15/18 05:40 04/15/18 05:40 PT 14.9 Seconds (9.8-13.1) H 04/07/18 08:22 INR 1.3 (0.9-1.2) H 04/07/18 08:22 - Constitutional Appears: alert, oriented, not in distress - Head Exam Head Exam: ATRAUMATIC, NORMAL INSPECTION, NORMOCEPHALIC - Eye Exam Eye Exam: EOMI, Normal appearance Pupil Exam: NORMAL ACCOMODATION - ENT Exam ENT Exam: Mucous Membranes Dry, Normal External Ear Exam - Neck Exam Neck Exam: Full ROM. absent: Meningismus - Respiratory Exam Respiratory Exam: Rales, Rhonchi, NORMAL BREATHING PATTERN. absent: Wheezes, Respiratory Distress - Cardiovascular Exam Cardiovascular Exam: Irregular Rhythm, +S1, +S2 - GI/Abdominal Exam GI & Abdominal Exam: Soft, Tenderness (mild lower abd tenderness), Normal Bowel Sounds Additional comments: Surgical Wound with area of dehiscence- Wound Vac placed Left Colostomy with yellow stool Right pigtail catheter: minimal drainage - Extremities Exam Extremities Exam: Full ROM, Normal Capillary Refill. absent: Calf Tenderness, Pedal Edema - Back Exam Back Exam: Full ROM. absent: CVA tenderness (L), CVA tenderness (R) - Neurological Exam Neurological Exam: Alert, Awake, CN II-XII Intact, Oriented x3 - Psychiatric Exam Psychiatric exam: normal affect/mood - Skin Skin Exam: Dry, Normal Color, Warm Assessment and Plan - Assessment and Plan (Free Text) Assessment: 87 y/o lady, well known to the Hospitalist team from previous admission last month presented with drainage from surgical scar. She had Colon Perforation after Colonoscopy and underwent Sigmoid Resection and Colostomy. She was d/c to a [facility] on 03/05. She came back because of abdominal pain, chills and purulent drainage from her surgical wound. CT of the abdomen/Pelvis showed Large pelvic abscess collection closely associated with the rectal stump, raising suspicion for leak. Surgery , ID and IR consulted . She was admitted and started on IV antibiotics and underwent IR drainage of abscess. Wound cultures reported positive for ESBL E coli and Proteus. She is on Meropenem and Diflucan. Pigtail with minimal drainage last 24 hours . Still with purulent drainage from openings of surgical scar - Wound Vac in place 1.Sepsis sec to Pelvic Abscess and Abdominal Wound Abscess s/p CT guided Incision and Drainage and placement of pigtail catheter done by IR. at present ther is very minimal drainage from the Pigtail catheter - discussed with IR Dr Perla - he recommends repeat CT scan of the abd/pelvis with contrast and that pigtail catheter needs to be removed Wound Vac placed on the midline abd surgical wound ID and surgery on consult cont Meropenem and Diflucan IV Wound cx positive for ESBL E Coli and Proteus Contact isolation Pain management Promote ambulation with PT 2. Abdominal wall abscess at site of surgical wound Acute 2 small areas of dehiscence noted draining purulent material Wound Vac placed 3 Diabetes mellitus, type II accucheck with coverage controlled 4 CHF (congestive heart failure), chronic diastolic dysfunction on Losartan 5. Atrial fibrillation, chronic with RVR Chronic off anticoag due to her GI bleed- family refuses any further therapeutic anticoag in the future cont Cardizem Cardio consulted - Dr Arriaga 6. Asthma ( mild intermittent ) chronic COPD (chronic obstructive pulmonary disease), chronic Atelectasis/Pleural Effusion seen on CT Pulm consulted- Dr Macario Hilario treatments cont Pulmicort 7. Hypertension chronic , controlled cont Cardizem and Losartan 8. Hypothyroidism Chronic cont Levothyroxine 9. Mild anemia chronic , stable 10. Obesity BMI 31 11 DVT prophylaxis Lovenox
--- NOTE | 2018-04-15 13:41 | CP.PCM.PN ---
Subjective - Date & Time of Evaluation Date of Evaluation: 04/15/18 Time of Evaluation: 08:00 - Subjective Subjective: complaining of nausea, no vomiting. Good output from ostomy. [place] and patent. Wound vac on 50cc or serosang drainage. Denies: fevers, chills, vomiting, diarrhea Objective - Vital Signs/Intake and Output Vital Signs (last 24 hours): Temp Pulse Resp BP Pulse Ox 97.9 F 88 19 112/67 95 04/15/18 08:10 04/15/18 12:58 04/15/18 12:58 04/15/18 12:58 04/15/18 12:58 - Medications Medications: Current Medications Acetaminophen (Tylenol 325mg Tab) 650 mg PO Q6H PRN PRN Reason: Pain, Mild (1-3) Last Admin: 04/12/18 00:06 Dose: 650 mg Acetaminophen (Tylenol 325mg Tab) 650 mg PO Q6H PRN PRN Reason: Fever >100.4 F Acetaminophen (Tylenol 325mg Tab) 650 mg PO Q6 PRN PRN Reason: Fever >100.4 F Albuterol Sulfate (Albuterol 0.083% Inhal [place] (2.5 Mg/3 Ml) Ud) 2.5 mg INH RQ4 PRN PRN Reason: Shortness of Breath Albuterol/Ipratropium (Duoneb 3 Mg/0.5 Mg (3 Ml) Ud) 3 ml INH RQID [facility] Last Admin: 04/15/18 11:07 Dose: 3 ml Atorvastatin Calcium (Lipitor) 40 mg PO QPM [facility] Last Admin: 04/14/18 17:17 Dose: 40 mg Budesonide (Pulmicort Respules) 0.25 mg INH RBID [facility] Last Admin: 04/15/18 07:57 Dose: 0.25 mg Diltiazem HCl (Cardizem) 30 mg PO QID [facility] Last Admin: 04/15/18 12:58 Dose: 30 mg Enoxaparin Sodium (Lovenox) 40 mg SC DAILY [facility] PRN Reason: Protocol Last Admin: 04/15/18 08:37 Dose: 40 mg Meropenem 1 gm/ Sodium (Chloride) 100 mls @ 100 mls/hr IVPB Q8 [facility] PRN Reason: Protocol Last Admin: 04/15/18 08:39 Dose: 100 mls/hr Fluconazole (Diflucan Iv 400mg/200ml Ns) 200 mls @ 100 mls/hr IVPB DAILY [facility] PRN Reason: Protocol Last Admin: 04/15/18 09:36 Dose: 100 mls/hr Insulin Human Lispro (Humalog) 0 units SC ACHS [facility] PRN Reason: Protocol Last Admin: 04/15/18 11:45 Dose: Not Given Levothyroxine Sodium (Synthroid) 175 mcg PO DAILY@0630 [facility] Last Admin: 04/15/18 06:32 Dose: 175 mcg Losartan Potassium (Cozaar) 50 mg PO DAILY [facility] Last Admin: 04/15/18 08:36 Dose: 50 mg Morphine Sulfate (Morphine) 2 mg IVP Q4H PRN PRN Reason: Pain, severe (8-10) Last Admin: 04/12/18 02:09 Dose: 2 mg Olopatadine HCl (Patanol 0.1% Opht Soln) 1 drop OU DAILY [facility] Last Admin: 04/15/18 08:35 Dose: 1 drop Ondansetron HCl (Zofran Odt) 4 mg PO Q6 PRN PRN Reason: Nausea/Vomiting Pantoprazole Sodium (Protonix Ec Tab) 40 mg PO DAILY [facility] Last Admin: 04/15/18 09:37 Dose: 40 mg Simethicone (Mylicon Chew Tab) 80 mg PO QID PRN PRN Reason: Flatulence Last Admin: 04/15/18 08:51 Dose: 80 mg Tramadol HCl (Ultram) 50 mg PO TID PRN PRN Reason: Pain, moderate (4-7) Last Admin: 04/15/18 08:34 Dose: 50 mg - Labs Labs: 04/15/18 05:40 04/15/18 05:40 PT 14.9 Seconds (9.8-13.1) H 04/07/18 08:22 INR 1.3 (0.9-1.2) H 04/07/18 08:22 - Constitutional Appears: Cachectic, Chronically Ill - Head Exam Head Exam: NORMOCEPHALIC - Eye Exam Eye Exam: absent: Scleral icterus - ENT Exam ENT Exam: Mucous Membranes Dry - Neck Exam Neck Exam: absent: Lymphadenopathy - Respiratory Exam Respiratory Exam: Decreased Breath Sounds - Cardiovascular Exam Cardiovascular Exam: REGULAR RHYTHM - GI/Abdominal Exam GI & Abdominal Exam: Distended, Soft - Rectal Exam Rectal Exam: Deferred - Exam Exam: NORMAL INSPECTION Assessment and Plan (1) Abdominal wall abscess at site of surgical wound Status: Acute (2) Atelectasis Status: Acute (3) Pelvic abscess Status: Acute (4) Sepsis Status: Acute (5) Wound infection Status: Acute
[2018-04-15] MEDS ORDERED: Iohexol 240 (50 ml) PO ONE (13:46)
[2018-04-15] MEDS ORDERED: Iohexol 300 100 ML IJ ONE (15:51)
[2018-04-15] MEDS ORDERED: Sodium Chloride 0.9% 50 ML IV ONE (15:51)
[2018-04-15] MEDS: Sucralfate 1 gm/10 ml Oral Susp UD PO SCH (17:00)
[2018-04-16] MEDS: Meropenem 1 GM in Sodium Chloride 0.9% 100 ML IVPB SCH ×3 (00:32→16:46)
[2018-04-16] MEDS: Levothyroxine 175 MCG TAB PO SCH (06:10)
[2018-04-16 06:46] LABS: HEMOGLOBIN 10.6 g/dL (12.0-16.0); MEAN CELL VOLUME 89.6 fl (81.0-99.0); MEAN CORPUSCULAR HEMOGLOBIN 29.7 pg (27.0-31.0); MEAN CORPUSCULAR HGB CONC 33.1 g/dL (33.0-37.0); RBC 3.56 Mil/uL (3.80-5.20); RED CELL DISTRIBUTION WIDTH 20.9 % (11.5-14.5); WHITE BLOOD COUNT 8.4 K/uL (4.8-10.8)
[2018-04-16 07:14] LABS: BLOOD UREA NITROGEN 5 mg/dl (7-17); CALCIUM 7.4 mg/dL (8.4-10.2); GFR AFRICAN-AMERICAN > 60; GFR NON-AFRICAN AMERICAN > 60
[2018-04-16] MEDS: Budesonide 0.25 mg/2 ml Inhal Susp UD INH SCH ×2 (07:14→19:07)
[2018-04-16] MEDS: Albuterol-Ipratrop 3 mg / 0.5 (3 ml) UD INH SCH ×4 (07:14→19:08)
--- NOTE | 2018-04-16 07:48 | CP.PCM.PN ---
Subjective - Date & Time of Evaluation Date of Evaluation: 04/16/18 Time of Evaluation: 07:41 - Subjective Subjective: Surgery - Dr. Montaño Patient seen and evaluated. Patient complains of persistent lower abdominal pain. Admits to nausea, no vomiting. Still having vaginal discharge. Good output from colostomy. Wound vac in place on continuous suction. Objective - Vital Signs/Intake and Output Vital Signs (last 24 hours): Temp Pulse Resp BP Pulse Ox 98.0 F 89 18 129/66 95 04/16/18 00:09 04/16/18 00:09 04/16/18 00:09 04/16/18 00:09 04/16/18 00:09 - Medications Medications: Current Medications Acetaminophen (Tylenol 325mg Tab) 650 mg PO Q6H PRN PRN Reason: Pain, Mild (1-3) Last Admin: 04/12/18 00:06 Dose: 650 mg Acetaminophen (Tylenol 325mg Tab) 650 mg PO Q6H PRN PRN Reason: Fever >100.4 F Acetaminophen (Tylenol 325mg Tab) 650 mg PO Q6 PRN PRN Reason: Fever >100.4 F Albuterol Sulfate (Albuterol 0.083% Inhal [place] (2.5 Mg/3 Ml) Ud) 2.5 mg INH RQ4 PRN PRN Reason: Shortness of Breath Albuterol/Ipratropium (Duoneb 3 Mg/0.5 Mg (3 Ml) Ud) 3 ml INH RQID [facility] Last Admin: 04/16/18 07:14 Dose: 3 ml Atorvastatin Calcium (Lipitor) 40 mg PO QPM [facility] Last Admin: 04/15/18 17:01 Dose: 40 mg Budesonide (Pulmicort Respules) 0.25 mg INH RBID [facility] Last Admin: 04/16/18 07:14 Dose: 0.25 mg Diltiazem HCl (Cardizem) 30 mg PO QID [facility] Last Admin: 04/15/18 21:42 Dose: 30 mg Enoxaparin Sodium (Lovenox) 40 mg SC DAILY [facility] PRN Reason: Protocol Last Admin: 04/15/18 08:37 Dose: 40 mg Meropenem 1 gm/ Sodium (Chloride) 100 mls @ 100 mls/hr IVPB Q8 [facility] PRN Reason: Protocol Last Admin: 04/16/18 00:32 Dose: 100 mls/hr Fluconazole (Diflucan Iv 400mg/200ml Ns) 200 mls @ 100 mls/hr IVPB DAILY [facility] PRN Reason: Protocol Last Admin: 04/15/18 09:36 Dose: 100 mls/hr Insulin Human Lispro (Humalog) 0 units SC ACHS [facility] PRN Reason: Protocol Last Admin: 04/15/18 21:43 Dose: Not Given Levothyroxine Sodium (Synthroid) 175 mcg PO DAILY@0630 [facility] Last Admin: 04/16/18 06:10 Dose: 175 mcg Losartan Potassium (Cozaar) 50 mg PO DAILY [facility] Last Admin: 04/15/18 08:36 Dose: 50 mg Morphine Sulfate (Morphine) 2 mg IVP Q4H PRN PRN Reason: Pain, severe (8-10) Last Admin: 04/12/18 02:09 Dose: 2 mg Olopatadine HCl (Patanol 0.1% Opht Soln) 1 drop OU DAILY [facility] Last Admin: 04/15/18 08:35 Dose: 1 drop Ondansetron HCl (Zofran Odt) 4 mg PO Q6 PRN PRN Reason: Nausea/Vomiting Pantoprazole Sodium (Protonix Ec Tab) 40 mg PO DAILY [facility] Last Admin: 04/15/18 09:37 Dose: 40 mg Simethicone (Mylicon Chew Tab) 80 mg PO QID PRN PRN Reason: Flatulence Last Admin: 04/15/18 08:51 Dose: 80 mg Sucralfate (Carafate Oral Susp) 1 gm PO TID [facility] Last Admin: 04/15/18 17:00 Dose: 1 gm Tramadol HCl (Ultram) 50 mg PO TID PRN PRN Reason: Pain, moderate (4-7) Last Admin: 04/16/18 05:51 Dose: 50 mg - Labs Labs: 04/16/18 06:20 04/16/18 06:20 PT 14.9 Seconds (9.8-13.1) H 04/07/18 08:22 INR 1.3 (0.9-1.2) H 04/07/18 08:22 - Constitutional Appears: Non-toxic - Head Exam Head Exam: ATRAUMATIC, NORMAL INSPECTION - Eye Exam Eye Exam: EOMI, Normal appearance Pupil Exam: NORMAL ACCOMODATION - ENT Exam ENT Exam: Mucous Membranes Moist - Neck Exam Neck Exam: Full ROM - Respiratory Exam Respiratory Exam: absent: Respiratory Distress - Cardiovascular Exam Cardiovascular Exam: +S1, +S2 - GI/Abdominal Exam GI & Abdominal Exam: Tenderness Additional comments: Woundvac in place 125 mmHg continuous suction Colostomy output present Pigtail drain in place - Extremities Exam Extremities Exam: Full ROM, Normal Inspection - Neurological Exam Neurological Exam: Alert, Awake, Oriented x3 - Psychiatric Exam Psychiatric exam: Normal Affect, Normal Mood Assessment and Plan - Assessment and Plan (Free Text) Assessment: 87F w/ intra abdominal abscess, rectal stump vaginal fistula formation Plan: - F/u IR recs regarding drain management - Continue to flush IR drain - F/u repeat CT - Continue IV abx - Maintain woundvac - change q72h - C/w Regular diet - Discussed w/ Dr. Montaño surgical attending
[2018-04-16] MEDS: Insulin Lispro (humaLOG) 100 Units/ml Inj SC SCH ×4 (07:50→22:04)
[2018-04-16] MEDS: Sucralfate 1 gm/10 ml Oral Susp UD PO SCH ×3 (08:47→16:46)
[2018-04-16] MEDS: Enoxaparin 40 mg Syringe SC SCH (08:47)
[2018-04-16] MEDS: Olopatadine 0.1% Opht SOLN OU SCH (08:49)
[2018-04-16] MEDS: Pantoprazole 40 mg EC Tab PO SCH (08:50)
[2018-04-16] MEDS: Fluconazole IV 400mg/200ml NS 200 ML IVPB SCH (08:51)
--- NOTE | 2018-04-16 10:56 | CT ---
PROCEDURE: CT Abdomen and Pelvis with contrast HISTORY: pelvic abscess COMPARISON: None. TECHNIQUE: Contrast dose: 90 mL Omnipaque 300 Radiation dose: Total exam DLP = 1036.5 mGy-cm. This CT exam was performed using one or more of the following dose reduction techniques: Automated exposure control, adjustment of the mA and/or kV according to patient size, and/or use of iterative reconstruction technique. FINDINGS: LOWER THORAX: Small to moderate bilateral pleural effusions with subjacent atelectasis. Heart size enlarged. Heavy mitral annular calcification. Coronary arterial and valvular calcifications. LIVER: Mild hepatic steatosis. No gross lesion or ductal dilatation. GALLBLADDER AND BILE DUCTS: Unremarkable. PANCREAS: Unremarkable. No gross lesion or ductal dilatation. SPLEEN: Small stable splenic cyst. ADRENALS: Unremarkable. No mass. KIDNEYS AND URETERS: Stable left renal cyst. No hydronephrosis. No solid mass. VASCULATURE: Heavy atherosclerotic calcification. No aortic aneurysm. BOWEL: Left lower quadrant colostomy redemonstrated. Relatively collapsed rectal stump with a pelvic abscess adjacent to suture line. Diverticulosis. No obstruction. No gross mural thickening. APPENDIX: Prior appendectomy. PERITONEUM: Decreased size of pelvic abscess now measuring 6.6 x 4.1 cm with pigtail drainage catheter in place. New fistula to vaginal cuff. Fistula to the distal ileum not excluded. Midline abdominal wall incision with 4.9 x 2.3 cm incisional seroma. LYMPH NODES: Unremarkable. No enlarged lymph nodes. BLADDER: Unremarkable. REPRODUCTIVE: Pelvic abscess to vaginal cuff fistula. Prior hysterectomy. BONES: No acute fracture. OTHER FINDINGS: None. IMPRESSION: Interval decreased size of persistent pelvic abscess now measuring 6.6 x 4.1 cm with pigtail drainage catheter in place. 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 Fistula from pelvic abscess to superiorly coursing distal ileum not excluded. Midline abdominal wall incisional seroma measuring 4.9 x 2.3 cm. Increased size of small to moderate bilateral pleural effusions. Additional stable findings as above.
--- NOTE | 2018-04-16 14:24 | CP.PCM.PN ---
Subjective - Date & Time of Evaluation Date of Evaluation: 04/16/18 Time of Evaluation: 14:19 - Subjective Subjective: Seen on morning rounds and the medical unit. She appears more comfortable today and her oral intake is gradually increasing. She still had does have some complaint of discomfort in the lower abdomen/ pelvis at this is also decreasing. At times there is some mild nausea but no vomiting. Colostomy appears to be functioning well. The patient denies any vaginal discharge. Abdomen is soft and nontender with good bowel sounds. Wound VAC is attached to the surgical incision. Pigtail catheter continues to drain a small amount of purulent material. The pharynx is pink and the mucous membranes are moist. The neck is supple and trachea is midline. There is no dullness on chest percussion. Breath sounds are SLIGHTLY diminished bilaterally without any wheezing. Few dry rales are heard posteriorly in the lower lobes. No areas of bronchial breathing or egophony. There is residual edema of the abdominal wall posteriorly, but this is decreasing with time. Follow-up CT of the abdomen and pelvis has been performed. The report has been reviewed. There are small to moderate pleural effusions bilaterally with passive atelectasis in both lung bases. Patient mobilization is very important and she has been advised to remain up in the chair as much as can be tolerated. Medical regimen will remain unchanged at this time. Objective - Vital Signs/Intake and Output Vital Signs (last 24 hours): Temp Pulse Resp BP Pulse Ox 97.6 F 80 18 124/71 97 04/16/18 09:00 04/16/18 12:36 04/16/18 12:36 04/16/18 12:36 04/16/18 12:36 - Medications Medications: Current Medications Acetaminophen (Tylenol 325mg Tab) 650 mg PO Q6H PRN PRN Reason: Pain, Mild (1-3) Last Admin: 04/12/18 00:06 Dose: 650 mg Acetaminophen (Tylenol 325mg Tab) 650 mg PO Q6H PRN PRN Reason: Fever >100.4 F Acetaminophen (Tylenol 325mg Tab) 650 mg PO Q6 PRN PRN Reason: Fever >100.4 F Albuterol Sulfate (Albuterol 0.083% Inhal [place] (2.5 Mg/3 Ml) Ud) 2.5 mg INH RQ4 PRN PRN Reason: Shortness of Breath Albuterol/Ipratropium (Duoneb 3 Mg/0.5 Mg (3 Ml) Ud) 3 ml INH RQID [facility] Last Admin: 04/16/18 11:06 Dose: 3 ml Atorvastatin Calcium (Lipitor) 40 mg PO QPM [facility] Last Admin: 04/15/18 17:01 Dose: 40 mg Budesonide (Pulmicort Respules) 0.25 mg INH RBID [facility] Last Admin: 04/16/18 07:14 Dose: 0.25 mg Diltiazem HCl (Cardizem) 30 mg PO QID [facility] Last Admin: 04/16/18 12:36 Dose: 30 mg Enoxaparin Sodium (Lovenox) 40 mg SC DAILY [facility] PRN Reason: Protocol Last Admin: 04/16/18 08:47 Dose: 40 mg Meropenem 1 gm/ Sodium (Chloride) 100 mls @ 100 mls/hr IVPB Q8 [facility] PRN Reason: Protocol Last Admin: 04/16/18 08:50 Dose: 100 mls/hr Fluconazole (Diflucan Iv 400mg/200ml Ns) 200 mls @ 100 mls/hr IVPB DAILY [facility] PRN Reason: Protocol Last Admin: 04/16/18 08:51 Dose: 100 mls/hr Insulin Human Lispro (Humalog) 0 units SC ACHS [facility] PRN Reason: Protocol Last Admin: 04/16/18 12:24 Dose: Not Given Levothyroxine Sodium (Synthroid) 175 mcg PO DAILY@0630 [facility] Last Admin: 04/16/18 06:10 Dose: 175 mcg Losartan Potassium (Cozaar) 50 mg PO DAILY [facility] Last Admin: 04/16/18 08:48 Dose: 50 mg Morphine Sulfate (Morphine) 2 mg IVP Q4H PRN PRN Reason: Pain, severe (8-10) Last Admin: 04/12/18 02:09 Dose: 2 mg Olopatadine HCl (Patanol 0.1% Opht Soln) 1 drop OU DAILY [facility] Last Admin: 04/16/18 08:49 Dose: 1 drop Ondansetron HCl (Zofran Odt) 4 mg PO Q6 PRN PRN Reason: Nausea/Vomiting Pantoprazole Sodium (Protonix Ec Tab) 40 mg PO DAILY [facility] Last Admin: 04/16/18 08:50 Dose: 40 mg Simethicone (Mylicon Chew Tab) 80 mg PO QID PRN PRN Reason: Flatulence Last Admin: 04/15/18 08:51 Dose: 80 mg Sucralfate (Carafate Oral Susp) 1 gm PO TID [facility] Last Admin: 04/16/18 12:36 Dose: 1 gm Tramadol HCl (Ultram) 50 mg PO TID PRN PRN Reason: Pain, moderate (4-7) Last Admin: 04/16/18 05:51 Dose: 50 mg - Labs Labs: 04/16/18 06:20 04/16/18 06:20 PT 14.9 Seconds (9.8-13.1) H 04/07/18 08:22 INR 1.3 (0.9-1.2) H 04/07/18 08:22 Assessment and Plan (1) Asthma Status: Chronic (2) Pelvic abscess Status: Acute (3) Atelectasis Status: Acute (4) BAR (obstructive sleep apnea) Status: Chronic (5) Pleural effusion Status: Chronic
--- NOTE | 2018-04-16 15:59 | CP.PCM.PN ---
Subjective - Date & Time of Evaluation Date of Evaluation: 04/16/18 Time of Evaluation: 11:30 - Subjective Subjective: Patient seen and examined bedside. Feeling better . Still feeling nauseated and has no appetite but enjoying the soups her son brings her . Hemodynamically stable, afebrile With minimal ,only 15 ml of purulent output from pig tail from RLQ colostomy to LLQ with good output Midline surgical incision with wound vac in place with minimal output No acute issues overnight repeat CT abdomen showed :Interval decreased size of persistent pelvic abscess now measuring 6.6 x 4.1 cm with pigtail drainage catheter in place. 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 Fistula from pelvic abscess to superiorly coursing distal ileum not excluded.Midline abdominal wall incisional seroma measuring 4.9 x 2.3 cm. Increased size of small to moderate bilateral pleural effusions. Objective - Vital Signs/Intake and Output Vital Signs (last 24 hours): Temp Pulse Resp BP Pulse Ox 97.6 F 80 18 124/71 97 04/16/18 09:00 04/16/18 12:36 04/16/18 12:36 04/16/18 12:36 04/16/18 12:36 - Medications Medications: Current Medications Acetaminophen (Tylenol 325mg Tab) 650 mg PO Q6H PRN PRN Reason: Pain, Mild (1-3) Last Admin: 04/12/18 00:06 Dose: 650 mg Acetaminophen (Tylenol 325mg Tab) 650 mg PO Q6H PRN PRN Reason: Fever >100.4 F Acetaminophen (Tylenol 325mg Tab) 650 mg PO Q6 PRN PRN Reason: Fever >100.4 F Albuterol Sulfate (Albuterol 0.083% Inhal [place] (2.5 Mg/3 Ml) Ud) 2.5 mg INH RQ4 PRN PRN Reason: Shortness of Breath Albuterol/Ipratropium (Duoneb 3 Mg/0.5 Mg (3 Ml) Ud) 3 ml INH RQID [facility] Last Admin: 04/16/18 15:13 Dose: 3 ml Atorvastatin Calcium (Lipitor) 40 mg PO QPM [facility] Last Admin: 04/15/18 17:01 Dose: 40 mg Budesonide (Pulmicort Respules) 0.25 mg INH RBID [facility] Last Admin: 04/16/18 07:14 Dose: 0.25 mg Diltiazem HCl (Cardizem) 30 mg PO QID [facility] Last Admin: 04/16/18 12:36 Dose: 30 mg Enoxaparin Sodium (Lovenox) 40 mg SC DAILY [facility] PRN Reason: Protocol Last Admin: 04/16/18 08:47 Dose: 40 mg Meropenem 1 gm/ Sodium (Chloride) 100 mls @ 100 mls/hr IVPB Q8 [facility] PRN Reason: Protocol Last Admin: 04/16/18 08:50 Dose: 100 mls/hr Fluconazole (Diflucan Iv 400mg/200ml Ns) 200 mls @ 100 mls/hr IVPB DAILY [facility] PRN Reason: Protocol Last Admin: 04/16/18 08:51 Dose: 100 mls/hr Insulin Human Lispro (Humalog) 0 units SC ACHS [facility] PRN Reason: Protocol Last Admin: 04/16/18 12:24 Dose: Not Given Levothyroxine Sodium (Synthroid) 175 mcg PO DAILY@0630 [facility] Last Admin: 04/16/18 06:10 Dose: 175 mcg Losartan Potassium (Cozaar) 50 mg PO DAILY [facility] Last Admin: 04/16/18 08:48 Dose: 50 mg Morphine Sulfate (Morphine) 2 mg IVP Q4H PRN PRN Reason: Pain, severe (8-10) Last Admin: 04/12/18 02:09 Dose: 2 mg Olopatadine HCl (Patanol 0.1% Opht Soln) 1 drop OU DAILY [facility] Last Admin: 04/16/18 08:49 Dose: 1 drop Ondansetron HCl (Zofran Odt) 4 mg PO Q6 PRN PRN Reason: Nausea/Vomiting Pantoprazole Sodium (Protonix Ec Tab) 40 mg PO DAILY [facility] Last Admin: 04/16/18 08:50 Dose: 40 mg Simethicone (Mylicon Chew Tab) 80 mg PO QID PRN PRN Reason: Flatulence Last Admin: 04/15/18 08:51 Dose: 80 mg Sucralfate (Carafate Oral Susp) 1 gm PO TID [facility] Last Admin: 04/16/18 12:36 Dose: 1 gm Tramadol HCl (Ultram) 50 mg PO TID PRN PRN Reason: Pain, moderate (4-7) Last Admin: 06/07/18 05:51 Dose: 50 mg - Labs Labs: 04/16/18 06:20 04/16/18 06:20 PT 14.9 Seconds (9.8-13.1) H 04/07/18 08:22 INR 1.3 (0.9-1.2) H 04/07/18 08:22 - Constitutional Appears: Non-toxic, No Acute Distress - Head Exam Head Exam: ATRAUMATIC, NORMAL INSPECTION, NORMOCEPHALIC - Eye Exam Eye Exam: EOMI, Normal appearance, PERRL Pupil Exam: NORMAL ACCOMODATION - ENT Exam ENT Exam: Mucous Membranes Moist, Normal Exam - Neck Exam Neck Exam: Full ROM, Normal Inspection - Respiratory Exam Respiratory Exam: Clear to Ausculation Bilateral, Rales (bibasilar ), NORMAL BREATHING PATTERN. absent: Wheezes - Cardiovascular Exam Cardiovascular Exam: REGULAR RHYTHM, RRR, +S1, +S2. absent: JVD - GI/Abdominal Exam GI & Abdominal Exam: Soft, Normal Bowel Sounds. absent: Distended, Guarding, Tenderness, Rebound Additional comments: LLQ colostomy in place RLQ pig tail Midline surgical incision with wound vac in place - Rectal Exam Rectal Exam: Deferred - Extremities Exam Extremities Exam: Normal Inspection, Pedal Edema. absent: Full ROM - Back Exam Back Exam: NORMAL INSPECTION - Neurological Exam Neurological Exam: Alert, Awake, CN II-XII Intact, Oriented x3 - Psychiatric Exam Psychiatric exam: Flat Affect - Skin Skin Exam: Pallor, Warm Assessment and Plan - Assessment and Plan (Free Text) Assessment: 87 y/o lady, well known to the Hospitalist team from previous admission last month presented with drainage from surgical scar. She had Colon Perforation after Colonoscopy and underwent Sigmoid Resection and Colostomy. She was discharged to [facility] on 03/05. She came back because of abdominal pain, chills and purulent drainage from her surgical wound. CT of the abdomen/Pelvis showed Large pelvic abscess collection closely associated with the rectal stump, raising suspicion for leak. Surgery , ID and IR consulted . She was admitted and started on IV antibiotics and underwent IR drainage of abscess. Wound cultures reported positive for ESBL E coli and Proteus. She is on Meropenem and Diflucan. Repeat Ct abdomen 04/15 shows decreased size of persistent pelvic abscess now measuring 6.6 x 4.1 cm with pigtail drainage catheter in place. 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 Fistula from pelvic abscess to superiorly coursing distal ileum not excluded.Midline abdominal wall incisional seroma measuring 4.9 x 2.3 cm.Increased size of small to moderate bilateral pleural effusions. Pigtail has been having minimal output the last few days and wound vac placed to midline surgical wound has minimal output. Hemodynamically is stable, afebrile with normal WBC 1.Sepsis sec to Pelvic Abscess and Abdominal Wound Abscess s/p CT guided Incision and Drainage and placement of pigtail catheter done by IR. With minimal output during the last few days. Repeat CT abdomen as above, decresaed size of abscess but present fistula from pelvoic abscess to vaginal cuff and possible from abscess to distal ileum . As per IR pig tail will need to be removed . Will follow up with IR for removal of pig tail in AM Continue IV antibiotics, Meropenem and Diflucan Wound cx positive for ESBL E Coli and Proteus . vaginal cx positive for yeast ID and surgery on consult Wound Vac placed to the midline abdominal surgical wound in place with minimal output Contact isolation Pain management Promote ambulation with PT As per ID will need to continue antibiotics at least 3 weeks Will discuss with surgery and ID and plan discharge to [facility] for continuation of IV antibiotics. 2. Abdominal wall abscess at site of surgical wound Acute 2 small areas of dehiscence noted draining purulent material on admission Wound Vac placed , and now with minimal output 3 Diabetes mellitus, type II accucheck with coverage controlled 4 CHF (congestive heart failure), chronic diastolic dysfunction on Losartan 5. Atrial fibrillation, chronic with RVR Chronic off anticoag due to her GI bleed- family refuses any further therapeutic anticoag in the future cont Cardizem Cardio consulted - Dr Arriaga 6. Asthma ( mild intermittent ) chronic COPD (chronic obstructive pulmonary disease), chronic Atelectasis/Pleural Effusion seen on CT Pulm consulted- Dr Macario Hilario treatments cont Pulmicort Ct abdomen shows bilateral minimal pleural effusion Promote ambulation 7. Hypertension chronic , controlled cont Cardizem and Losartan 8. Hypothyroidism Chronic cont Levothyroxine 9. Mild anemia chronic , stable 10. Obesity BMI 31 11 DVT prophylaxis Lovenox 12. GI prophylaxis carafate , Protonix and Simeticone Reglan PRN for nausea
[2018-04-17] MEDS: Meropenem 1 GM in Sodium Chloride 0.9% 100 ML IVPB SCH ×3 (01:00→16:10)
[2018-04-17 06:27] LABS: HEMOGLOBIN 10.5 g/dL (12.0-16.0); MEAN CELL VOLUME 89.9 fl (81.0-99.0); MEAN CORPUSCULAR HEMOGLOBIN 30.4 pg (27.0-31.0); MEAN CORPUSCULAR HGB CONC 33.8 g/dL (33.0-37.0); RBC 3.44 Mil/uL (3.80-5.20); RED CELL DISTRIBUTION WIDTH 20.9 % (11.5-14.5); WHITE BLOOD COUNT 7.7 K/uL (4.8-10.8)
[2018-04-17 06:32] LABS: BLOOD UREA NITROGEN 4 mg/dl (7-17); CALCIUM 7.4 mg/dL (8.4-10.2); GFR AFRICAN-AMERICAN > 60; GFR NON-AFRICAN AMERICAN > 60
[2018-04-17] MEDS: Levothyroxine 175 MCG TAB PO SCH (06:34)
--- NOTE | 2018-04-17 07:43 | CP.PCM.PN ---
Subjective - Date & Time of Evaluation Date of Evaluation: 04/17/18 Time of Evaluation: 07:35 - Subjective Subjective: Surgery - Dr. Montaño 87F seen and examined this AM. Patient reports abdominal pain and nausea is improving. Wound vac in place on continuous suction. Denies fever, chills, SOB, chest pain. Objective - Vital Signs/Intake and Output Vital Signs (last 24 hours): Temp Pulse Resp BP Pulse Ox 98.2 F 102 H 20 100/65 96 04/17/18 04:00 04/17/18 04:00 04/17/18 04:00 04/17/18 04:00 04/17/18 04:00 - Medications Medications: Current Medications Acetaminophen (Tylenol 325mg Tab) 650 mg PO Q6H PRN PRN Reason: Pain, Mild (1-3) Last Admin: 04/12/18 00:06 Dose: 650 mg Acetaminophen (Tylenol 325mg Tab) 650 mg PO Q6H PRN PRN Reason: Fever >100.4 F Acetaminophen (Tylenol 325mg Tab) 650 mg PO Q6 PRN PRN Reason: Fever >100.4 F Albuterol Sulfate (Albuterol 0.083% Inhal [place] (2.5 Mg/3 Ml) Ud) 2.5 mg INH RQ4 PRN PRN Reason: Shortness of Breath Albuterol/Ipratropium (Duoneb 3 Mg/0.5 Mg (3 Ml) Ud) 3 ml INH RQID [facility] Last Admin: 04/16/18 19:08 Dose: 3 ml Atorvastatin Calcium (Lipitor) 40 mg PO QPM [facility] Last Admin: 04/16/18 17:12 Dose: 40 mg Budesonide (Pulmicort Respules) 0.25 mg INH RBID [facility] Last Admin: 04/16/18 19:07 Dose: 0.25 mg Diltiazem HCl (Cardizem) 30 mg PO QID [facility] Last Admin: 04/16/18 22:03 Dose: 30 mg Enoxaparin Sodium (Lovenox) 40 mg SC DAILY [facility] PRN Reason: Protocol Last Admin: 04/16/18 08:47 Dose: 40 mg Meropenem 1 gm/ Sodium (Chloride) 100 mls @ 100 mls/hr IVPB Q8 [facility] PRN Reason: Protocol Last Admin: 04/17/18 01:00 Dose: 100 mls/hr Fluconazole (Diflucan Iv 400mg/200ml Ns) 200 mls @ 100 mls/hr IVPB DAILY [facility] PRN Reason: Protocol Last Admin: 04/16/18 08:51 Dose: 100 mls/hr Insulin Human Lispro (Humalog) 0 units SC ACHS [facility] PRN Reason: Protocol Last Admin: 04/16/18 22:04 Dose: Not Given Levothyroxine Sodium (Synthroid) 175 mcg PO DAILY@0630 [facility] Last Admin: 04/17/18 06:34 Dose: 175 mcg Losartan Potassium (Cozaar) 50 mg PO DAILY [facility] Last Admin: 04/16/18 08:48 Dose: 50 mg Morphine Sulfate (Morphine) 2 mg IVP Q4H PRN PRN Reason: Pain, severe (8-10) Last Admin: 04/12/18 02:09 Dose: 2 mg Olopatadine HCl (Patanol 0.1% Opht Soln) 1 drop OU DAILY [facility] Last Admin: 04/16/18 08:49 Dose: 1 drop Ondansetron HCl (Zofran Odt) 4 mg PO Q6 PRN PRN Reason: Nausea/Vomiting Pantoprazole Sodium (Protonix Ec Tab) 40 mg PO DAILY [facility] Last Admin: 04/16/18 08:50 Dose: 40 mg Simethicone (Mylicon Chew Tab) 80 mg PO QID PRN PRN Reason: Flatulence Last Admin: 04/15/18 08:51 Dose: 80 mg Sucralfate (Carafate Oral Susp) 1 gm PO TID [facility] Last Admin: 04/16/18 16:46 Dose: 1 gm Tramadol HCl (Ultram) 50 mg PO TID PRN PRN Reason: Pain, moderate (4-7) Last Admin: 04/16/18 05:51 Dose: 50 mg - Labs Labs: 04/17/18 05:55 04/17/18 05:55 PT 14.9 Seconds (9.8-13.1) H 04/07/18 08:22 INR 1.3 (0.9-1.2) H 04/07/18 08:22 - Constitutional Appears: Well, Non-toxic, No Acute Distress - Head Exam Head Exam: NORMAL INSPECTION, NORMOCEPHALIC - Eye Exam Eye Exam: EOMI, Normal appearance Pupil Exam: NORMAL ACCOMODATION - ENT Exam ENT Exam: Mucous Membranes Moist, Normal Exam - Neck Exam Neck Exam: Full ROM - Respiratory Exam Respiratory Exam: NORMAL BREATHING PATTERN. 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 Montaño
[2018-04-17] MEDS: Albuterol-Ipratrop 3 mg / 0.5 (3 ml) UD INH SCH ×3 (07:45→15:05)
[2018-04-17] MEDS: Budesonide 0.25 mg/2 ml Inhal Susp UD INH SCH (07:46)
[2018-04-17] MEDS: Insulin Lispro (humaLOG) 100 Units/ml Inj SC SCH ×3 (07:50→16:56)
[2018-04-17] MEDS: Sucralfate 1 gm/10 ml Oral Susp UD PO SCH ×3 (08:45→17:39)
[2018-04-17] MEDS: Olopatadine 0.1% Opht SOLN OU SCH (08:45)
[2018-04-17] MEDS: Pantoprazole 40 mg EC Tab PO SCH (08:46)
[2018-04-17] MEDS: Fluconazole IV 400mg/200ml NS 200 ML IVPB SCH (08:47)
[2018-04-17] MEDS: Enoxaparin 40 mg Syringe SC SCH (08:47)
--- NOTE | 2018-04-17 10:49 | PN ---
DATE: 04/16/2018 The CAT scan was reviewed. There is still residual abscess in the pelvis, but it is much smaller than it was. We are, in fact, for now completing the irrigations. We will discuss other manipulations, possibly might need another drainage, or consideration of a laparotomy, which I hope to vigorously avoid. Peter Montaño MD
--- NOTE | 2018-04-17 12:58 | CP.PCM.PN ---
Subjective - Date & Time of Evaluation Date of Evaluation: 04/17/18 Time of Evaluation: 12:53 - Subjective Subjective: The patient was seen on rounds earlier today in the medical unit. She appears much more comfortable and her oral intake is increasing. She does still have some mild degree of lower abdominal/pelvic discomfort. She denies any further vaginal discharge. Colostomy appears to be functioning well at this time. A plan is noted to remove the pigtail catheter draining the abscess fluid. Her vital signs have remained stable and she continues to be afebrile. CBC done this morning shows a white count of 7.7 with a hemoglobin of 10.5 platelets of 262. Sodium is decreased at 131 and the carbon dioxide is increased at 32. This may well reflect a degree of volume contraction. The abdomen is soft and not distended and the bowel sounds are well heard. The surgical incision appears to be healing well and the wound VAC is in place. There is no dullness on percussion of the thorax anteriorly. Breath sounds are slightly diminished but present equally in both lungs. Rare sonorous rhonchi are heard in the lower lobes posteriorly, cleared with coughing. Rare dry rales are heard in the lower lobes. No bronchial breathing or egophony. The heart sounds are well heard and the rhythm is irregularly irregular. From a respiratory standpoint she remains stable on the current regimen. Continue current regimen as outlined for her pelvic abscess. Continue deep breathing and coughing and out of bed activity. Objective - Vital Signs/Intake and Output Vital Signs (last 24 hours): Temp Pulse Resp BP Pulse Ox 98.0 F 97 H 18 119/60 95 04/17/18 07:52 04/17/18 12:20 04/17/18 12:20 04/17/18 12:20 04/17/18 12:20 - Medications Medications: Current Medications Acetaminophen (Tylenol 325mg Tab) 650 mg PO Q6H PRN PRN Reason: Pain, Mild (1-3) Last Admin: 04/12/18 00:06 Dose: 650 mg Acetaminophen (Tylenol 325mg Tab) 650 mg PO Q6H PRN PRN Reason: Fever >100.4 F Acetaminophen (Tylenol 325mg Tab) 650 mg PO Q6 PRN PRN Reason: Fever >100.4 F Albuterol Sulfate (Albuterol 0.083% Inhal [place] (2.5 Mg/3 Ml) Ud) 2.5 mg INH RQ4 PRN PRN Reason: Shortness of Breath Albuterol/Ipratropium (Duoneb 3 Mg/0.5 Mg (3 Ml) Ud) 3 ml INH RQID [facility] Last Admin: 04/17/18 11:22 Dose: 3 ml Atorvastatin Calcium (Lipitor) 40 mg PO QPM [facility] Last Admin: 04/16/18 17:12 Dose: 40 mg Budesonide (Pulmicort Respules) 0.25 mg INH RBID [facility] Last Admin: 04/17/18 07:46 Dose: 0.25 mg Diltiazem HCl (Cardizem) 30 mg PO QID [facility] Last Admin: 04/17/18 12:20 Dose: 30 mg Enoxaparin Sodium (Lovenox) 40 mg SC DAILY [facility] PRN Reason: Protocol Last Admin: 04/17/18 08:47 Dose: 40 mg Meropenem 1 gm/ Sodium (Chloride) 100 mls @ 100 mls/hr IVPB Q8 [facility] PRN Reason: Protocol Last Admin: 04/17/18 08:48 Dose: 100 mls/hr Fluconazole (Diflucan Iv 400mg/200ml Ns) 200 mls @ 100 mls/hr IVPB DAILY [facility] PRN Reason: Protocol Last Admin: 04/17/18 08:47 Dose: 100 mls/hr Insulin Human Lispro (Humalog) 0 units SC ACHS [facility] PRN Reason: Protocol Last Admin: 04/17/18 11:57 Dose: Not Given Levothyroxine Sodium (Synthroid) 175 mcg PO DAILY@0630 [facility] Last Admin: 04/17/18 06:34 Dose: 175 mcg Losartan Potassium (Cozaar) 50 mg PO DAILY [facility] Last Admin: 04/17/18 08:45 Dose: 50 mg Morphine Sulfate (Morphine) 2 mg IVP Q4H PRN PRN Reason: Pain, severe (8-10) Last Admin: 04/12/18 02:09 Dose: 2 mg Olopatadine HCl (Patanol 0.1% Opht Soln) 1 drop OU DAILY [facility] Last Admin: 04/17/18 08:45 Dose: 1 drop Ondansetron HCl (Zofran Odt) 4 mg PO Q6 PRN PRN Reason: Nausea/Vomiting Pantoprazole Sodium (Protonix Ec Tab) 40 mg PO DAILY [facility] Last Admin: 04/17/18 08:46 Dose: 40 mg Simethicone (Mylicon Chew Tab) 80 mg PO QID PRN PRN Reason: Flatulence Last Admin: 04/15/18 08:51 Dose: 80 mg Sucralfate (Carafate Oral Susp) 1 gm PO TID [facility] Last Admin: 04/17/18 12:20 Dose: 1 gm Tramadol HCl (Ultram) 50 mg PO TID PRN PRN Reason: Pain, moderate (4-7) Last Admin: 04/16/18 05:51 Dose: 50 mg - Labs Labs: 04/17/18 05:55 04/17/18 05:55 PT 14.9 Seconds (9.8-13.1) H 04/07/18 08:22 INR 1.3 (0.9-1.2) H 04/07/18 08:22 Assessment and Plan (1) Asthma Status: Chronic (2) Pelvic abscess Status: Acute (3) Atelectasis Status: Acute (4) BAR (obstructive sleep apnea) Status: Chronic (5) Pleural effusion Status: Chronic
--- NOTE | 2018-04-17 12:59 | PCM.IRP ---
History of Present Illness - History of Present Illness History of Present Illness: Pt Joyce brought to IR. Abscess drain evaluated. Drainage catheter continues to have purulent output albeit minimal. Catheter was flushed and attached to bulb drainage bag. Plan to repeat CT scan next week and will decide on drainage catheter removal at that point. Objective - Vital Signs/Intake and Output Vital Signs (last 24 hours): Vital Signs - 24 hr 04/16/18 04/16/18 04/16/18 16:07 16:46 17:00 Temperature 98.3 F 98.3 F Pulse Rate 88 88 88 Respiratory 20 20 20 Rate Blood Pressure 125/71 125/71 125/71 O2 Sat by Pulse 93 L 96 93 L Oximetry 04/16/18 04/17/18 04/17/18 22:03 00:00 04:00 Temperature 98.1 F 98.2 F Pulse Rate 94 H 85 102 H Respiratory 18 18 20 Rate Blood Pressure 139/70 128/66 100/65 O2 Sat by Pulse 95 96 96 Oximetry 04/17/18 04/17/18 04/17/18 07:47 07:52 08:45 Temperature 98.0 F 98.0 F Pulse Rate 68 68 68 Respiratory 18 18 Rate Blood Pressure 139/79 139/79 139/79 O2 Sat by Pulse 97 97 Oximetry 04/17/18 04/17/18 08:46 12:20 Temperature Pulse Rate 68 97 H Respiratory 18 Rate Blood Pressure 139/79 119/60 O2 Sat by Pulse 95 Oximetry Intake and Output (last 12 hours): Intake & Output 04/16/18 04/17/18 04/17/18 18:59 06:59 18:59 Intake Total 920 Output Total 260 Balance 660 Intake: Intake, Piggyback 300 Oral 620 Output: Drainage 10 Right Lower Abdomen 10 Stool 250 Other: # Voids Urine, Voided 2 - Medications Medications: Current Medications Acetaminophen (Tylenol 325mg Tab) 650 mg PO Q6H PRN PRN Reason: Pain, Mild (1-3) Last Admin: 04/12/18 00:06 Dose: 650 mg Acetaminophen (Tylenol 325mg Tab) 650 mg PO Q6H PRN PRN Reason: Fever >100.4 F Acetaminophen (Tylenol 325mg Tab) 650 mg PO Q6 PRN PRN Reason: Fever >100.4 F Albuterol Sulfate (Albuterol 0.083% Inhal [place] (2.5 Mg/3 Ml) Ud) 2.5 mg INH RQ4 PRN PRN Reason: Shortness of Breath Albuterol/Ipratropium (Duoneb 3 Mg/0.5 Mg (3 Ml) Ud) 3 ml INH RQID [facility] Last Admin: 04/17/18 11:22 Dose: 3 ml Atorvastatin Calcium (Lipitor) 40 mg PO QPM [facility] Last Admin: 04/16/18 17:12 Dose: 40 mg Budesonide (Pulmicort Respules) 0.25 mg INH RBID [facility] Last Admin: 04/17/18 07:46 Dose: 0.25 mg Diltiazem HCl (Cardizem) 30 mg PO QID [facility] Last Admin: 04/17/18 12:20 Dose: 30 mg Enoxaparin Sodium (Lovenox) 40 mg SC DAILY [facility] PRN Reason: Protocol Last Admin: 04/17/18 08:47 Dose: 40 mg Meropenem 1 gm/ Sodium (Chloride) 100 mls @ 100 mls/hr IVPB Q8 [facility] PRN Reason: Protocol Last Admin: 04/17/18 08:48 Dose: 100 mls/hr Fluconazole (Diflucan Iv 400mg/200ml Ns) 200 mls @ 100 mls/hr IVPB DAILY [facility] PRN Reason: Protocol Last Admin: 04/17/18 08:47 Dose: 100 mls/hr Insulin Human Lispro (Humalog) 0 units SC ACHS [facility] PRN Reason: Protocol Last Admin: 04/17/18 11:57 Dose: Not Given Levothyroxine Sodium (Synthroid) 175 mcg PO DAILY@0630 [facility] Last Admin: 04/17/18 06:34 Dose: 175 mcg Losartan Potassium (Cozaar) 50 mg PO DAILY [facility] Last Admin: 04/17/18 08:45 Dose: 50 mg Morphine Sulfate (Morphine) 2 mg IVP Q4H PRN PRN Reason: Pain, severe (8-10) Last Admin: 04/12/18 02:09 Dose: 2 mg Olopatadine HCl (Patanol 0.1% Opht Soln) 1 drop OU DAILY [facility] Last Admin: 04/17/18 08:45 Dose: 1 drop Ondansetron HCl (Zofran Odt) 4 mg PO Q6 PRN PRN Reason: Nausea/Vomiting Pantoprazole Sodium (Protonix Ec Tab) 40 mg PO DAILY [facility] Last Admin: 04/17/18 08:46 Dose: 40 mg Simethicone (Mylicon Chew Tab) 80 mg PO QID PRN PRN Reason: Flatulence Last Admin: 04/15/18 08:51 Dose: 80 mg Sucralfate (Carafate Oral Susp) 1 gm PO TID [facility] Last Admin: 04/17/18 12:20 Dose: 1 gm Tramadol HCl (Ultram) 50 mg PO TID PRN PRN Reason: Pain, moderate (4-7) Last Admin: 04/16/18 05:51 Dose: 50 mg - Labs Labs (last 24 hours): Laboratory Results - last 24 hr 04/16/18 04/16/18 04/17/18 15:53 21:13 05:55 WBC 7.7 RBC 3.44 L Hgb 10.5 L Hct 31.0 L MCV 89.9 MCH 30.4 MCHC 33.8 RDW 20.9 H Plt Count 262 Sodium Potassium Chloride Carbon Dioxide Anion Gap BUN Creatinine Est GFR ( Amer) Est GFR (Non-Af Amer) POC Glucose (mg/dL) 75 84 Random Glucose Calcium 04/17/18 04/17/18 04/17/18 05:55 05:55 07:01 WBC RBC Hgb Hct MCV MCH MCHC RDW Plt Count Sodium 131 L Potassium 3.7 Chloride 98 Carbon Dioxide 32 H Anion Gap 5 L BUN 4 L Creatinine 0.4 L Est GFR ( Amer) > 60 Est GFR (Non-Af Amer) > 60 POC Glucose (mg/dL) 68 86 Random Glucose 67 Calcium 7.4 L 04/17/18 10:57 WBC RBC Hgb Hct MCV MCH MCHC RDW Plt Count Sodium Potassium Chloride Carbon Dioxide Anion Gap BUN Creatinine Est GFR ( Amer) Est GFR (Non-Af Amer) POC Glucose (mg/dL) 79 Random Glucose Calcium
--- NOTE | 2018-04-17 13:13 | CP.PCM.PN ---
Subjective - Date & Time of Evaluation Date of Evaluation: 04/17/18 Time of Evaluation: 09:00 - Subjective Subjective: DOING WELL DRAIN IN PLACE NAD Objective - Vital Signs/Intake and Output Vital Signs (last 24 hours): Temp Pulse Resp BP Pulse Ox 98.0 F 97 H 18 119/60 95 04/17/18 07:52 04/17/18 12:20 04/17/18 12:20 04/17/18 12:20 04/17/18 12:20 - Medications Medications: Current Medications Acetaminophen (Tylenol 325mg Tab) 650 mg PO Q6H PRN PRN Reason: Pain, Mild (1-3) Last Admin: 04/12/18 00:06 Dose: 650 mg Acetaminophen (Tylenol 325mg Tab) 650 mg PO Q6H PRN PRN Reason: Fever >100.4 F Acetaminophen (Tylenol 325mg Tab) 650 mg PO Q6 PRN PRN Reason: Fever >100.4 F Albuterol Sulfate (Albuterol 0.083% Inhal [place] (2.5 Mg/3 Ml) Ud) 2.5 mg INH RQ4 PRN PRN Reason: Shortness of Breath Albuterol/Ipratropium (Duoneb 3 Mg/0.5 Mg (3 Ml) Ud) 3 ml INH RQID [facility] Last Admin: 04/17/18 11:22 Dose: 3 ml Atorvastatin Calcium (Lipitor) 40 mg PO QPM [facility] Last Admin: 04/16/18 17:12 Dose: 40 mg Budesonide (Pulmicort Respules) 0.25 mg INH RBID [facility] Last Admin: 04/17/18 07:46 Dose: 0.25 mg Diltiazem HCl (Cardizem) 30 mg PO QID [facility] Last Admin: 04/17/18 12:20 Dose: 30 mg Enoxaparin Sodium (Lovenox) 40 mg SC DAILY JOSE A PRN Reason: Protocol Last Admin: 04/17/18 08:47 Dose: 40 mg Meropenem 1 gm/ Sodium (Chloride) 100 mls @ 100 mls/hr IVPB Q8 JOSE A PRN Reason: Protocol Last Admin: 04/17/18 08:48 Dose: 100 mls/hr Fluconazole (Diflucan Iv 400mg/200ml Ns) 200 mls @ 100 mls/hr IVPB DAILY [facility] PRN Reason: Protocol Last Admin: 04/17/18 08:47 Dose: 100 mls/hr Insulin Human Lispro (Humalog) 0 units SC ACHS [facility] PRN Reason: Protocol Last Admin: 04/17/18 11:57 Dose: Not Given Levothyroxine Sodium (Synthroid) 175 mcg PO DAILY@0630 [facility] Last Admin: 04/17/18 06:34 Dose: 175 mcg Losartan Potassium (Cozaar) 50 mg PO DAILY [facility] Last Admin: 04/17/18 08:45 Dose: 50 mg Morphine Sulfate (Morphine) 2 mg IVP Q4H PRN PRN Reason: Pain, severe (8-10) Last Admin: 04/12/18 02:09 Dose: 2 mg Olopatadine HCl (Patanol 0.1% Opht Soln) 1 drop OU DAILY [facility] Last Admin: 04/17/18 08:45 Dose: 1 drop Ondansetron HCl (Zofran Odt) 4 mg PO Q6 PRN PRN Reason: Nausea/Vomiting Pantoprazole Sodium (Protonix Ec Tab) 40 mg PO DAILY [facility] Last Admin: 04/17/18 08:46 Dose: 40 mg Simethicone (Mylicon Chew Tab) 80 mg PO QID PRN PRN Reason: Flatulence Last Admin: 04/15/18 08:51 Dose: 80 mg Sucralfate (Carafate Oral Susp) 1 gm PO TID [facility] Last Admin: 04/17/18 12:20 Dose: 1 gm Tramadol HCl (Ultram) 50 mg PO TID PRN PRN Reason: Pain, moderate (4-7) Last Admin: 04/16/18 05:51 Dose: 50 mg - Labs Labs: 04/17/18 05:55 04/17/18 05:55 PT 14.9 Seconds (9.8-13.1) H 04/07/18 08:22 INR 1.3 (0.9-1.2) H 04/07/18 08:22 - Constitutional Appears: Non-toxic, Chronically Ill - Head Exam Head Exam: NORMOCEPHALIC - Eye Exam Eye Exam: PERRL - ENT Exam ENT Exam: Mucous Membranes Dry - Neck Exam Neck Exam: absent: Lymphadenopathy - Respiratory Exam Respiratory Exam: Decreased Breath Sounds - Cardiovascular Exam Cardiovascular Exam: REGULAR RHYTHM - GI/Abdominal Exam GI & Abdominal Exam: Distended - Exam Exam: NORMAL INSPECTION - Extremities Exam Extremities Exam: absent: Pedal Edema - Back Exam Back Exam: absent: CVA tenderness (L), CVA tenderness (R) - Neurological Exam Neurological Exam: Alert, Awake, Oriented x3 - Psychiatric Exam Psychiatric exam: Normal Mood Assessment and Plan (1) Abdominal wall abscess at site of surgical wound Status: Acute (2) Atelectasis Status: Acute (3) Pelvic abscess Status: Acute (4) Sepsis Status: Acute (5) Wound infection Status: Acute
--- NOTE | 2018-04-17 14:12 | CP.PCM.DIS ---
Provider - Provider Date of Admission: 04/06/18 20:32 Attending physician: Omar Neves MD Primary care physician: Dr. Sorto Consults: Surgery consult ID consult IR consult Pulmonary consult Time Spent in preparation of Discharge (in minutes): 10 Hospital Course - Lab Results Lab Results: Micro Results 04/14/18 08:07 Naris MRSA Culture (Admit) - Final MRSA NOT DETECTED 04/10/18 12:25 Vaginal Gram Stain - Final 04/10/18 12:25 Vaginal Genital Culture - Final Yeast Species 04/06/18 20:40 Blood Blood Culture - Final NO GROWTH AFTER 5 DAYS 04/06/18 20:40 Blood Gram Stain - Final TEST NOT PERFORMED 04/07/18 18:06 Other: Please Indicate Gram Stain - Final 04/07/18 18:06 Other: Please Indicate Body Fluid Culture - Final Proteus Mirabilis 04/06/18 23:00 Abdomen Gram Stain - Final 04/06/18 23:00 Abdomen Wound Culture - Final Escherichia Coli 04/06/18 08:22 Naris MRSA Culture (Admit) - Final MRSA NOT DETECTED Most Recent Lab Values WBC 7.7 K/uL (4.8-10.8) 04/17/18 05:55 RBC 3.44 Mil/uL (3.80-5.20) L 04/17/18 05:55 Hgb 10.5 g/dL (12.0-16.0) L 04/17/18 05:55 Hct 31.0 % (34.0-47.0) L 04/17/18 05:55 MCV 89.9 fl (81.0-99.0) 04/17/18 05:55 MCH 30.4 pg (27.0-31.0) 04/17/18 05:55 MCHC 33.8 g/dL (33.0-37.0) 04/17/18 05:55 RDW 20.9 % (11.5-14.5) H 04/17/18 05:55 Plt Count 262 K/uL (130-400) 04/17/18 05:55 MPV 8.0 fl (7.2-11.7) 04/15/18 05:40 Neut % (Auto) 55.0 % (50.0-75.0) 04/15/18 05:40 Lymph % (Auto) 35.1 % (20.0-40.0) 04/15/18 05:40 [place] % (Auto) 8.2 % (0.0-10.0) 04/15/18 05:40 Eos % (Auto) 1.2 % (0.0-4.0) 04/15/18 05:40 Baso % (Auto) 0.5 % (0.0-2.0) 04/15/18 05:40 Neut # (Auto) 5.1 K/uL (1.8-7.0) 04/15/18 05:40 Lymph # (Auto) 3.3 K/uL (1.0-4.3) 04/15/18 05:40 [place] # (Auto) 0.8 K/uL (0.0-0.8) 04/15/18 05:40 Eos # (Auto) 0.1 K/uL (0.0-0.7) 04/15/18 05:40 Baso # (Auto) 0.0 K/uL (0.0-0.2) 04/15/18 05:40 PT 14.9 Seconds (9.8-13.1) H 04/07/18 08:22 INR 1.3 (0.9-1.2) H 04/07/18 08:22 pO2 49 mm/Hg (30-55) 04/06/18 20:50 VBG pH 7.44 (7.32-7.43) H 04/06/18 20:50 VBG pCO2 39 mmHg (40-60) L 04/06/18 20:50 VBG HCO3 26.4 mmol/L 04/06/18 20:50 VBG Total CO2 27.7 mmol/L (22-28) 04/06/18 20:50 VBG O2 Sat (Calc) 87.3 % (40-65) H 04/06/18 20:50 VBG Base Excess 2.3 mmol/L (0.0-2.0) H 04/06/18 20:50 VBG Potassium 3.9 mmol/L (3.6-5.2) 04/06/18 20:50 Sodium 131.0 mmol/L (132-148) L 04/06/18 20:50 Chloride 101.0 mmol/L (98-107) 04/06/18 20:50 Glucose 170 mg/dL (65-105) H 04/06/18 20:50 Lactate 1.3 mmol/L (0.7-2.1) 04/06/18 20:50 FiO2 21.0 % 04/06/18 20:50 Sodium 131 mmol/l (132-148) L 04/17/18 05:55 Potassium 3.7 MMOL/L (3.6-5.0) 04/17/18 05:55 Chloride 98 mmol/L (98-107) 04/17/18 05:55 Carbon Dioxide 32 mmol/L (22-30) H 04/17/18 05:55 Anion Gap 5 (10-20) L 04/17/18 05:55 BUN 4 mg/dl (7-17) L 04/17/18 05:55 Creatinine 0.4 mg/dl (0.7-1.2) L 04/17/18 05:55 Est GFR ( Amer) > 60 04/17/18 05:55 Est GFR (Non-Af Amer) > 60 04/17/18 05:55 POC Glucose (mg/dL) 79 mg/dL (65-110) 04/17/18 10:57 Random Glucose 67 mg/dL (65-105) 04/17/18 05:55 Lactic Acid 1.0 MMOL/L (0.7-2.1) 04/07/18 06:00 Calcium 7.4 mg/dL (8.4-10.2) L 04/17/18 05:55 Phosphorus 3.3 mg/dl (2.5-4.5) 04/15/18 05:40 Magnesium 1.8 MG/DL (1.6-2.3) 04/15/18 05:40 Total Bilirubin 0.4 mg/dl (0.2-1.3) 04/15/18 05:40 AST 47 U/L (14-36) H D 04/15/18 05:40 ALT 22 U/L (9-52) 04/15/18 05:40 Alkaline Phosphatase 161 U/L (38-126) H D 04/15/18 05:40 Total Protein 5.6 G/DL (6.3-8.2) L 04/15/18 05:40 Albumin 2.0 g/dL (3.5-5.0) L 04/15/18 05:40 Globulin 3.6 gm/dL (2.2-3.9) 04/15/18 05:40 Albumin/Globulin Ratio 0.6 (1.0-2.1) L 04/15/18 05:40 TSH 3rd Generation 1.09 mIU/ML (0.46-4.68) 04/10/18 06:40 Venous Blood Potassium 3.9 mmol/L (3.6-5.2) 04/06/18 20:50 Vancomycin Trough 9.5 ug/mL (5.0-10.0) 04/09/18 07:07 - Hospital Course Hospital Course: 87 y/o lady, well known to the Hospitalist team from previous admission last month presented with drainage from surgical scar. She had Colon Perforation after Colonoscopy and underwent Sigmoid Resection and Colostomy. She was discharged to a [facility] on 03/05. She came back because of abdominal pain, chills and purulent drainage from her surgical wound. CT of the abdomen/Pelvis showed Large pelvic abscess collection closely associated with the rectal stump, raising suspicion for leak. Surgery , ID and IR consulted . She was admitted and started on IV antibiotics and underwent IR drainage of abscess. Wound cultures reported positive for ESBL E coli and Proteus. She is on Meropenem and Diflucan. Repeat Ct abdomen 04/15 shows decreased size of persistent pelvic abscess now measuring 6.6 x 4.1 cm with pigtail drainage catheter in place. 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 Fistula from pelvic abscess to superiorly coursing distal ileum not excluded.Midline abdominal wall incisional seroma measuring 4.9 x 2.3 cm.Increased size of small to moderate bilateral pleural effusions. Pigtail has been having minimal output the last few days and wound vac placed to midline surgical wound has minimal output. Hemodynamically is stable, afebrile with normal WBC As per IR will keep the pig tail for now but the bag changed by the vacuum ball.patient will needd to continue IV antibiotics for a long time . It waill be in patient's best interset to be transferred top TCU where can be followed closely by surgical team and later to [facility] for continuation of her antibiotic treatment and PT. 1.Sepsis sec to Pelvic Abscess and Abdominal Wound Abscess s/p CT guided Incision and Drainage and placement of pigtail catheter done by IR. With minimal output during the last few days. Repeat CT abdomen as above, showed decreased size of abscess but present fistula from pelvic abscess to vaginal cuff and possible from abscess to distal ileum . As per IR will keep pig tail for now. Changed the bag to vacuum ball and might repeat CT abdomen next week before removing pig tail. Continue IV antibiotics, Meropenem and Diflucan Wound cx positive for ESBL E Coli and Proteus . vaginal cx positive for yeast ID and surgery on consult Wound Vac placed to the surgical wound with minimal output . Will be changed by surgery Q72 hours Contact isolation Pain management Promote ambulation with PT As per ID will need to continue antibiotics at least 3 weeks Will d/c to TCU to continue IV antibiotics,wound vac change Q72 hours by surgery , PT and close monitoring . 2. Abdominal wall abscess at site of surgical wound Acute 2 small areas of dehiscence noted draining purulent material on admission Wound Vac placed , and now with minimal output 3 Diabetes mellitus, type II accucheck with coverage controlled 4 CHF (congestive heart failure), chronic diastolic dysfunction on Losartan 5. Atrial fibrillation, chronic with RVR Chronic off anticoag due to her GI bleed- family refuses any further therapeutic anticoag in the future cont Cardizem Cardio consulted - Dr Arriaga 6. Asthma ( mild intermittent ) chronic COPD (chronic obstructive pulmonary disease), chronic Atelectasis/Pleural Effusion seen on CT Pulm consulted- Dr Macario Hilario treatments cont Pulmicort Ct abdomen shows bilateral minimal pleural effusion Promote ambulation 7. Hypertension chronic , controlled cont Cardizem and Losartan 8. Hypothyroidism Chronic cont Levothyroxine 9. Mild anemia chronic , stable 10. Obesity BMI 31 11 DVT prophylaxis Lovenox 12. GI prophylaxis carafate , Protonix and Simeticone Reglan PRN for nausea Discharge Exam - Head Exam Head Exam: ATRAUMATIC, NORMOCEPHALIC - Eye Exam Eye Exam: EOMI, PERRL Pupil Exam: NORMAL ACCOMODATION - ENT Exam ENT Exam: Mucous Membranes Moist, Normal Exam - Neck Exam Neck exam: Full Rom, Normal Inspection - Respiratory Exam Respiratory Exam: Clear to PA & Lateral. absent: Rales, Rhonchi, Wheezes, Respiratory Distress - Cardiovascular Exam Cardiovascular Exam: Irregular Rhythm, +S1, +S2. absent: JVD - GI/Abdominal Exam GI & Abdominal Exam: Normal Bowel Sounds, Soft. absent: Distended, Guarding, Rebound, Tenderness Additional comments: midline surgical incision with wound vac in place and with minimal output Colostomy to LLQ pig tail to RLQ - Rectal Exam Rectal Exam: Deferred - Extremities Exam Extremities exam: normal inspection - Back Exam Back exam: NORMAL INSPECTION - Neurological Exam Neurological exam: Alert, CN II-XII Intact, Oriented x3 - Psychiatric Exam Psychiatric exam: Normal Affect, Normal Mood - Skin Skin Exam: Dry, Pallor, Warm Discharge Plan - Follow Up Plan Condition: STABLE Disposition: TRANSF TO SNF Patient education suggested?: Yes Instructions: Wound Infection Referrals: Hemant Sorto MD [Staff Provider] - Peter Montaño MD [Staff Provider] -
[2018-04-17 16:14] VITALS: BP 130/74; PULSE 75; RESP 20; TEMP 97.6; O2SAT 99
--- NOTE | 2018-04-20 08:49 | PN ---
DATE: The drainage has pretty much stopped, although there is residual abscess. So, we will leave the drain a little bit longer. Discussed with IR about getting better drainage with a larger tube. The tip of the drainage catheter might be a little bit too long. We discussed that also. Presently, there is no drainage. is having bowel movements and eating a little bit better. The patient will be transferred to the continue to follow there. Ultimately, I hope we were able to avoid an operation to excise this abscess. Peter Montaño MD
== END 2018-04-17 18:35 | DRG 862 ==
LOC: H.ER 20:07 → H.ERHOLD 20:32 → H.ICU/CCU 23:29 → H.MEDSURG1 04-14 01:20
PROVIDERS: ADMIT Internal Medicine; ATTEND Internal Medicine
PROC: 0D9W30Z Drainage of Peritoneum with Drainage Device, Percutaneous Approach (ICD-10-PCS; principal; 2018-04-07 12:45)
DX: T81.4XXA Infection following a procedure, initial encounter (principal); A41.9 Sepsis, unspecified organism; K65.1 Peritoneal abscess; T81.31XA Disruption of external operation (surgical) wound, not elsewhere classified, initial encounter; I50.32 Chronic diastolic (congestive) heart failure; I31.3 Pericardial effusion (noninflammatory); J98.11 Atelectasis; N82.8 Other female genital tract fistulae; B96.20 Unspecified Escherichia coli [E. coli] as the cause of diseases classified elsewhere; B96.4 Proteus (mirabilis) (morganii) as the cause of diseases classified elsewhere; I11.0 Hypertensive heart disease with heart failure; E03.9 Hypothyroidism, unspecified; I25.10 Atherosclerotic heart disease of native coronary artery without angina pectoris; I48.0 Paroxysmal atrial fibrillation; I48.2 Chronic atrial fibrillation; J45.20 Mild intermittent asthma, uncomplicated; J44.9 Chronic obstructive pulmonary disease, unspecified; G47.33 Obstructive sleep apnea (adult) (pediatric); E78.00 Pure hypercholesterolemia, unspecified; E11.9 Type 2 diabetes mellitus without complications; D64.9 Anemia, unspecified; N73.9 Female pelvic inflammatory disease, unspecified; E66.9 Obesity, unspecified; Z68.31 Body mass index [BMI] 31.0-31.9, adult; Z93.3 Colostomy status; Z79.84 Long term (current) use of oral hypoglycemic drugs; Z87.01 Personal history of pneumonia (recurrent); Z87.891 Personal history of nicotine dependence; Z90.710 Acquired absence of both cervix and uterus

== ENCOUNTER 2018-04-17 16:59 | Inpatient (IN) | payer MEDICARE, MEDICAID ==
[2018-04-17 19:01] VITALS: BMI 29.5
[2018-04-17] MEDS: Insulin Lispro (humaLOG) 100 Units/ml Inj SC SCH (23:17)
[2018-04-18] MEDS ORDERED: Patient's Own Med (Meropenem [Meropenem] 1 GM) IV SCH (01:00)
[2018-04-18] MEDS: Meropenem 1 GM in Sodium Chloride 0.9% 100 ML IVPB SCH ×3 (04:00→19:44)
[2018-04-18] MEDS: Insulin Lispro (humaLOG) 100 Units/ml Inj SC SCH ×4 (06:34→21:29)
--- NOTE | 2018-04-18 06:43 | CP.PCM.CON ---
History of Present Illness - History of Present Illness History of Present Illness: Consult Note- Dr. Montaño Reason for consult: Abdominal wall abscess- follow up to patient in TCU 87F w/ pmhx significant for HTN, A.Fib, CHF, COPD, DM, diverticulitis, sleep apnea, hypothyroidism s/p LAR & Bebo's on 02/2018, returned to the hospital because of abd pain, purulent drainage from surgical wound. CT scan was done and showed large pelvic abscess collection close to the rectal stump. Surgery and IR were consulted. IR drain was placed, IVabx started, and wound vac was placed to help with closure of abd wall. Patient states some purulent discharge from vagina. Currently is having normal BM via ostomy. Stoma pink and patent. Denies fevers, chills chest pain, shortness of breath PMH: stated above PSH: extensive lysis of adhesions LAR & Bebo's, cholecystectomy, appendectomy, backsurgery ALL: NKDA SocialHx: denies ETOH, tobacco, recreational drug use FH: non-contributory Review of Systems - Review of Systems All systems: reviewed and no additional remarkable complaints except - Constitutional Constitutional: As Per HPI Past Patient History - Infectious Disease Hx of Infectious Diseases: None - Past Medical History & Family History Past Medical History?: Yes - Past Social History Smoking Status: Never Smoked - CARDIAC Hx Cardiac Disorders: Yes (AF, ? CAD) Hx Congestive Heart Failure: Yes Hx Hypercholesterolemia: Yes Hx Hypertension: Yes - PULMONARY Hx Chronic Obstructive Pulmonary Disease (COPD): Yes (home O2, asthma, bronchitis) - NEUROLOGICAL Hx Neurological Disorder: No - HEENT Hx HEENT Problems: No - RENAL Hx Chronic Kidney Disease: No - ENDOCRINE/METABOLIC Hx Diabetes Mellitus Type 1: Yes Hx Diabetes Mellitus Type 2: Yes Hx Hypothyroidism: Yes (thyroid dz) - HEMATOLOGICAL/ONCOLOGICAL Hx AIDS: No Hx Anemia: Yes Hx Human Immunodeficiency Virus (HIV): No - INTEGUMENTARY Hx Dermatological Problems: Yes - MUSCULOSKELETAL/RHEUMATOLOGICAL Hx Falls: No - GASTROINTESTINAL Hx Bowel Surgery: Yes Hx Colostomy: Yes Hx Diverticulitis: Yes Other/Comment: perforated viscus repaired last admission - GENITOURINARY/GYNECOLOGICAL Hx Genitourinary Disorders: No - PSYCHIATRIC Hx Substance Use: No - SURGICAL HISTORY Hx Cholecystectomy: Yes Hx Hysterectomy: Yes Other/Comment: lumbar laminectomy-remote, repair of colon perforation with colostomy - ANESTHESIA Hx Anesthesia: Yes Hx Anesthesia Reactions: No Hx Malignant Hyperthermia: No Meds Allergies/Adverse Reactions: Allergies Allergy/AdvReac Type Severity Reaction Status Date / Time No Known Allergies Allergy Verified 04/17/18 19:00 - Medications Medications: Current Medications Acetaminophen (Tylenol 325mg Tab) 650 mg PO Q6 PRN PRN Reason: Fever >100.4 F Albuterol/Ipratropium (Duoneb 3 Mg/0.5 Mg (3 Ml) Ud) 3 ml INH RQID JOSE A Atorvastatin Calcium (Lipitor) 40 mg PO QPM JOSE A Diltiazem HCl (Cardizem) 30 mg PO QID [facility] Last Admin: 04/17/18 22:00 Dose: 30 mg Enoxaparin Sodium (Lovenox) 40 mg SC DAILY [facility] PRN Reason: Protocol Fluconazole (Diflucan Iv 400mg/200ml Ns) 200 mls @ 100 mls/hr IVPB DAILY [facility] Meropenem 1 gm/ Sodium (Chloride) 100 mls @ 100 mls/hr IVPB Q8H JOSE A PRN Reason: Protocol Last Admin: 04/18/18 04:00 Dose: 100 mls/hr Insulin Human Lispro (Humalog) 0 units SC ACHS [facility] PRN Reason: Protocol Last Admin: 04/18/18 06:34 Dose: Not Given Losartan Potassium (Cozaar) 50 mg PO DAILY [facility] Olopatadine HCl (Patanol 0.1% Opht Soln) 1 drop OU DAILY [facility] Ondansetron HCl (Zofran Odt) 4 mg PO Q6 PRN PRN Reason: Nausea/Vomiting Pantoprazole Sodium (Protonix Ec Tab) 40 mg PO DAILY [facility] Simethicone (Mylicon Chew Tab) 80 mg PO QID PRN PRN Reason: Flatulence Tramadol HCl (Ultram) 50 mg PO TID PRN PRN Reason: Pain, moderate (4-7) Last Admin: 04/18/18 01:28 Dose: 50 mg Physical Exam - Constitutional Appears: Non-toxic, No Acute Distress - Head Exam Head Exam: ATRAUMATIC - Eye Exam Eye Exam: EOMI. absent: Scleral icterus - ENT Exam ENT Exam: Mucous Membranes Moist - Respiratory Exam Respiratory Exam: NORMAL BREATHING PATTERN. absent: Accessory Muscle Use, Respiratory Distress - Cardiovascular Exam Cardiovascular Exam: +S1, +S2. absent: Bradycardia, Tachycardia - GI/Abdominal Exam GI & Abdominal Exam: Soft. absent: Tenderness Additional comments: woundvac in place on suction with minimal output in cannister - Extremities Exam Extremities exam: Positive for: normal inspection. 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 Montaño surgical attending [employer] [email or web address]
[2018-04-18 07:29] LABS: BASO # 0.1 K/uL (0.0-0.2); EOS # 0.2 K/uL (0.0-0.7); EOS % 2.5 % (0.0-4.0); HEMOGLOBIN 10.9 g/dL (12.0-16.0); LYMPH # 3.2 K/uL (1.0-4.3); LYMPH % 42.6 % (20.0-40.0); MEAN CELL VOLUME 89.3 fl (81.0-99.0); MEAN CORPUSCULAR HEMOGLOBIN 30.1 pg (27.0-31.0); MEAN CORPUSCULAR HGB CONC 33.7 g/dL (33.0-37.0); MEAN PLATELET VOLUME 7.8 fl (7.2-11.7); MONO # 0.7 K/uL (0.0-0.8); MONO % 9.2 % (0.0-10.0); NEUT # 3.4 K/uL (1.8-7.0); NEUT % 44.7 % (50.0-75.0); NRBC % 0.2 % (0.0-0.0); RBC 3.61 Mil/uL (3.80-5.20); RED CELL DISTRIBUTION WIDTH 20.4 % (11.5-14.5); WHITE BLOOD COUNT 7.5 K/uL (4.8-10.8)
[2018-04-18 07:33] LABS: BLOOD UREA NITROGEN 3 mg/dl (7-17); CALCIUM 7.7 mg/dL (8.4-10.2); GFR AFRICAN-AMERICAN > 60; GFR NON-AFRICAN AMERICAN > 60
[2018-04-18 07:48] LABS: INR 1.4 (0.9-1.2); PARTIAL THROMBOPLASTIN TIME 35.4 Seconds (25.6-37.1); PROTHROMBIN TIME 15.7 Seconds (9.8-13.1)
[2018-04-18] MEDS: Albuterol-Ipratrop 3 mg / 0.5 (3 ml) UD INH SCH ×5 (07:52→19:41)
[2018-04-18] MEDS: Simethicone 80 mg Chewtab PO PRN ×2 (08:51→13:25)
[2018-04-18] MEDS: Enoxaparin 40 mg Syringe SC SCH (08:54)
[2018-04-18] MEDS: Pantoprazole 40 mg EC Tab PO SCH (08:55)
[2018-04-18] MEDS ORDERED: [UNRECOGNIZED DRUG - OTHER] IVPB SCH (09:00)
[2018-04-18] MEDS ORDERED: FLUCONAZOLE 400 MG/200 ML IVPB SCH (09:00)
[2018-04-18] MEDS ORDERED: Fluconazole IV 400mg/200ml NS 200 ML IVPB SCH (09:00)
[2018-04-18] MEDS: Olopatadine 0.1% Opht SOLN OU SCH (13:30)
--- NOTE | 2018-04-18 14:27 | CP.PCM.HP ---
History of Present Illness - History of Present Illness History of Present Illness: 87 y/o F with PMH OF HTN, A.Fib, CHF, COPD, DM, diverticulitis, hypothyroidism was admitted last month for GIB and had a colon perforation post colonoscopy.Subsequently underwent colon resection with colostomy on 02/2018. Patient returned to the hospital because of abdominal pain and purulent drainage from surgical wound. CT scan was done and showed large pelvic abscess collection. Surgery, ID and IR were consulted and started on Iv antibiotics. IR drain and wound vac were placed to help with closure of abdominal.Repeat Ct abdomen showed decrease in size of abdominal abscess and recto-vaginal fistula.Clinically patient is doing well and now transferred to TCU for continuation of IV antibiotics and Physical therapy . Feeling better , denies any abdominal pain or discomfort, denies chest pain , SOB, palpitations, nausea, vomiting , fever chills. With normal bowel movements via stoma . Allergies : NKDA PMH:Arthritis, Asthma, Atrial Fibrillation, CAD (Questionable), CHF, COPD, Depression, Diabetes (type II), Diverticulitis, HTN, Hypercholesterolemia, Hypothyroidism, Sleep Apnea SHx: cholecystectomy, back surgery, appendectomy, partila colon resection post perforation with colostomy 02/25 Medications:See med rec Family Hx: HTN runs in family Social Hx: no EtOH no tobacco, no drug abuse Surrogate decision maker : Son ROS ; 14 point review of system negative except above PMD ; Dr. Sorto Present on Admission - Present on Admission Any Indicators Present on Admission: No Review of Systems - Review of Systems All systems: reviewed and no additional remarkable complaints except Past Patient History - Infectious Disease Hx of Infectious Diseases: None - Tetanus Immunizations Tetanus Immunization: Unknown - Past Medical History & Family History Past Medical History?: Yes - Past Social History Smoking Status: Never Smoked Chewing Tobacco Use: No Cigar Use: No Alcohol: None Drugs: Denies Domestic Violence: Negative - CARDIAC Hx Cardiac Disorders: Yes (AF, ? CAD) Hx Congestive Heart Failure: Yes Hx Hypercholesterolemia: Yes Hx Hypertension: Yes - PULMONARY Hx Chronic Obstructive Pulmonary Disease (COPD): Yes (home O2, asthma, bronchitis) - NEUROLOGICAL Hx Neurological Disorder: No - HEENT Hx HEENT Problems: No - RENAL Hx Chronic Kidney Disease: No - ENDOCRINE/METABOLIC Hx Diabetes Mellitus Type 1: Yes Hx Diabetes Mellitus Type 2: Yes Hx Hypothyroidism: Yes (thyroid dz) - HEMATOLOGICAL/ONCOLOGICAL Hx AIDS: No Hx Anemia: Yes Hx Human Immunodeficiency Virus (HIV): No - INTEGUMENTARY Hx Dermatological Problems: Yes - MUSCULOSKELETAL/RHEUMATOLOGICAL Hx Falls: No - GASTROINTESTINAL Hx Bowel Surgery: Yes Hx Colostomy: Yes Hx Diverticulitis: Yes Other/Comment: perforated viscus repaired last admission - GENITOURINARY/GYNECOLOGICAL Hx Genitourinary Disorders: No - PSYCHIATRIC Hx Substance Use: No - SURGICAL HISTORY Hx Cholecystectomy: Yes Hx Hysterectomy: Yes Other/Comment: lumbar laminectomy-remote, repair of colon perforation with colostomy - ANESTHESIA Hx Anesthesia: Yes Hx Anesthesia Reactions: No Hx Malignant Hyperthermia: No Meds Allergies/Adverse Reactions: Allergies Allergy/AdvReac Type Severity Reaction Status Date / Time No Known Allergies Allergy Verified 04/17/18 19:00 Physical Exam - Constitutional Appears: Non-toxic, No Acute Distress - Head Exam Head Exam: ATRAUMATIC, NORMOCEPHALIC - Eye Exam Eye Exam: EOMI, PERRL Pupil Exam: NORMAL ACCOMODATION - ENT Exam ENT Exam: Mucous Membranes Moist, Normal Exam - Neck Exam Neck exam: Positive for: Full Rom, Normal Inspection - Respiratory Exam Respiratory Exam: Clear to Auscultation Bilateral, NORMAL BREATHING PATTERN. absent: Rales, Rhonchi, Wheezes - Cardiovascular Exam Cardiovascular Exam: REGULAR RHYTHM, RRR, +S1, +S2. absent: JVD - GI/Abdominal Exam GI & Abdominal Exam: Soft. absent: Distended, Guarding, Rebound, Tenderness Additional comments: colostomy to LLQ PIg tail to RLQ Midline surgical incision with wound vac - Rectal Exam Rectal Exam: Deferred - Extremities Exam Extremities exam: Positive for: normal inspection, pedal pulses present. Negative for: pedal edema - Neurological Exam Neurological exam: Alert, CN II-XII Intact, Reflexes Normal - Psychiatric Exam Psychiatric exam: Normal Affect - Skin Skin Exam: Dry, Pallor, Warm Results - Vital Signs Recent Vital Signs: Last Vital Signs Temp 97.3 F L 04/18/18 07:58 Pulse 76 04/18/18 08:54 Resp 76 H 04/18/18 08:53 BP 129/67 04/18/18 13:29 Pulse Ox 100 04/18/18 08:53 - Labs Result Diagrams: 04/18/18 05:20 04/18/18 05:20 Labs: Laboratory Results - last 24 hr 0604/18/18 04/18/18 23:00 05:08 05:20 WBC 7.5 RBC 3.61 L Hgb 10.9 L Hct 32.2 L MCV 89.3 MCH 30.1 MCHC 33.7 RDW 20.4 H Plt Count 269 MPV 7.8 Neut % (Auto) 44.7 L Lymph % (Auto) 42.6 H Clarke % (Auto) 9.2 Eos % (Auto) 2.5 Baso % (Auto) 1.0 Neut # (Auto) 3.4 Lymph # (Auto) 3.2 Clarke # (Auto) 0.7 Eos # (Auto) 0.2 Baso # (Auto) 0.1 PT INR APTT Sodium Potassium Chloride Carbon Dioxide Anion Gap BUN Creatinine Est GFR ( Amer) Est GFR (Non-Af Amer) POC Glucose (mg/dL) 72 63 L Random Glucose Calcium 04/18/18 04/18/18 04/18/18 05:20 05:20 10:39 WBC RBC Hgb Hct MCV MCH MCHC RDW Plt Count MPV Neut % (Auto) Lymph % (Auto) Clarke % (Auto) Eos % (Auto) Baso % (Auto) Neut # (Auto) Lymph # (Auto) Clarke # (Auto) Eos # (Auto) Baso # (Auto) PT 15.7 H INR 1.4 H APTT 35.4 Sodium 131 L Potassium 4.0 Chloride 98 Carbon Dioxide 32 H Anion Gap 5 L BUN 3 L Creatinine 0.4 L Est GFR ( Amer) > 60 Est GFR (Non-Af Amer) > 60 POC Glucose (mg/dL) 94 Random Glucose 85 Calcium 7.7 L Assessment & Plan - Assessment and Plan (Free Text) Assessment: 87 y/o F with PMH OF HTN, A.Fib, CHF, COPD, DM, diverticulitis, hypothyroidism was admitted last month for GIB and had a colon perforation post colonoscopy.Subsequently underwent colon resection with colostomy on 02/2018. Patient returned to the hospital because of abdominal pain and purulent drainage from surgical wound. CT scan was done and showed large pelvic abscess collection. Surgery, ID and IR were consulted and started on Iv antibiotics. IR drain and wound vac were placed to help with closure of abdominal.Repeat Ct abdomen showed decrease in size of abdominal abscess and recto-vaginal fistula.Clinically patient is doing well and now transferred to TCU for continuation of IV antibiotics and Physical therapy . Feeling better , denies any abdominal pain or discomfort, denies chest pain , SOB, palpitations, nausea, vomiting , fever chills. With normal bowel movements via stoma . 1.Pelvic Abscess and Abdominal Wound Abscess at surgical site admit to TCU for continuation of IV antibiotics and physical therapy s/p CT guided Incision and Drainage and placement of pigtail catheter done by IR. Repeat Ct abdomen 04/15 shows decreased size of persistent pelvic abscess now measuring 6.6 x 4.1 cm with pigtail drainage catheter in place. 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 Fistula from pelvic abscess to superiorly coursing distal ileum not excluded.Midline abdominal wall incisional seroma measuring 4.9 x 2.3 cm.Increased size of small to moderate bilateral pleural effusions. Pigtail has been having minimal output the last few days and wound vac placed to midline surgical wound has minimal output.As per IR will keep pig tail for now and repeat CT abdomen next week Wound cx positive for ESBL E Coli and Proteus . Vaginal cx positive for yeast Continue IV antibiotics, Meropenem and Diflucan ID and surgery on consult Wound Vac placed to the surgical wound with minimal output . Will be changed by surgery Q72 hours Contact isolation Pain management Promote ambulation with PT As per ID will need to continue antibiotics at least 3 weeks 2. Diabetes mellitus, type II accucheck with coverage controlled 3 CHF (congestive heart failure), chronic diastolic dysfunction on Losartan 4. Atrial fibrillation, chronic with RVR Chronic off anticoag due to her recent GI bleed .Family refuses any further therapeutic anticoagulation in the future on Cardizem 5. Asthma ( mild intermittent ) chronic COPD (chronic obstructive pulmonary disease), chronic Atelectasis/Pleural Effusion seen on CT Duoneb treatments cont Pulmicort Ct abdomen shows bilateral minimal pleural effusion Promote ambulation 6. Hypertension chronic , controlled cont Cardizem and Losartan 7. Hypothyroidism Chronic cont Levothyroxine 8. Mild anemia chronic , stable 9. Obesity BMI 31 10 DVT prophylaxis Lovenox 11. GI prophylaxis carafate , Protonix and Simeticone Reglan PRN for nausea
[2018-04-19] MEDS: Meropenem 1 GM in Sodium Chloride 0.9% 100 ML IVPB SCH ×3 (04:01→19:48)
[2018-04-19] MEDS: Simethicone 80 mg Chewtab PO PRN ×2 (05:55→09:18)
[2018-04-19] MEDS: Insulin Lispro (humaLOG) 100 Units/ml Inj SC SCH ×4 (07:45→21:29)
[2018-04-19] MEDS: Albuterol-Ipratrop 3 mg / 0.5 (3 ml) UD INH SCH ×4 (08:03→19:43)
[2018-04-19] MEDS: Enoxaparin 40 mg Syringe SC SCH (09:13)
[2018-04-19] MEDS: Olopatadine 0.1% Opht SOLN OU SCH (09:14)
[2018-04-19] MEDS: Pantoprazole 40 mg EC Tab PO SCH (09:21)
--- NOTE | 2018-04-19 12:33 | CP.PCM.CON ---
History of Present Illness - History of Present Illness History of Present Illness: 87 y/o female with multiple chronic conditions was admitted to this hospital last month for GIB. At the time she had had a perforation of her colon following colonoscopy, and required surgery. Now she is s/p colostomy. She was noted to have abd pain and drainage from the surgical wound site and was found to have abscess in pelvis at rectal stump - went for drainage and has drain in place Cultre + ESBL gram neg rods Now in TCU on IV antibiotics ID consult requested ROS: limited given patient poor historian denies fever abd pain MHx: Arthritis, Asthma, Atrial Fibrillation, CAD (Questionable), CHF, COPD, Depression, Diabetes (type II), Diverticulitis, HTN, Hypercholesterolemia, Hypothyroidism, Sleep Apnea SHx: Recent bowel surgery as noted above, cholecystectomy, back surgery Allergies: NKDA Medications: Per med rec Family Hx: HTN runs in family, o/w unknown Social Hx: no EtOH no tobacco Review of Systems - Review of Systems All systems: reviewed and no additional remarkable complaints except - Constitutional Constitutional: As Per HPI - EENT Eyes: absent: As Per HPI, Blind Spots, Blurred Vision, Change in Vision, Decreased Night Vision, Diplopia, Discharge, Dry Eye, Exophthalmos, Floaters, Irritation, Itchy Eyes, Loss of Peripheral Vision, Pain, Photophobia, Requires Corrective Lenses, Sees Flashes, Spots in Vision, Tunnel Vision, Other Visual Disturbances, Loss of Vision, Other Ears: absent: As Per HPI, Decreased Hearing, Ear Discharge, Ear Pain, Tinnitus, Abnormal Hearing, Disequilibrium, Dizziness, Other Nose/Mouth/Throat: absent: As Per HPI, Epistaxis, Nasal Congestion, Nasal Discharge, Nasal Obstruction, Nasal Trauma, Nose Pain, Post Nasal Drip, Sinus Pain, Sinus Pressure, Bleeding Gums, Change in Voice, Dental Pain, Dry Mouth, Dysphagia, Halitosis, Hoarsness, Lip Swelling, Mouth Lesions, Mouth Pain, Odynophagia, Sore Throat, Throat Swelling, Tongue Swelling, Facial Pain, Neck Pain, Neck Mass, Other - Breasts Breasts: absent: As Per HPI, Change in Shape, Mass, Pain, Nipple Discharge, Nipple Inversion, Skin Changes, Swelling, Other - Cardiovascular Cardiovascular: absent: As Per HPI, Acrocyanosis, Chest Pain, Chest Pain at Rest , Chest Pain with Activity, Claudication, Diaphoresis, Dyspnea, Dyspnea on Exertion, Edema, Irregular Heart Rhythm, Pain Radiating to Arm/Neck/Jaw, Leg Edema, Leg Ulcers, Lightheadedness, Orthopnea, Palpitations, Paroxysmal Nocturnal Dyspnea, Pedal Edema, Radiating Pain, Rapid Heart Rate, Slow Heart Rate, Syncope, Other - Respiratory Respiratory: absent: As Per HPI, Cough, Dyspnea, Hemoptysis, Dyspnea on Exertion , Wheezing, Snoring, Stridor, Pain on Inspiration, Chest Congestion, Excessive Mucous Production, Change in Mucous Color, Pain with Coughing, Other - Gastrointestinal Gastrointestinal: As Per HPI - Genitourinary Genitourinary: As Per HPI - Reproductive: Female Reproductive:Female: absent: As Per HPI, Amenorrhea, Amenorrhea/ Control, Currently Menstual, Cycle <21 Days, Cycle >35 Days, Cycle Variable, Menses 1-7 Days, Menses >/= 8 Days, Menses Variable, Cycle > 4 Weeks Between, No Menses for 6 Months, Heavy Menses, Light Menses, Normal Menses, Spotting Between Cycles , S/P Hysterectomy, Menopausal, Post Menopausal, Premenarche, Abnormal Vaginal Bleeding, Dysmenorrhea, Dyspareunia, Genital Lesions, Genital Pruritis, Pelvic Pain, Prolapse Symptoms, Sexual Dysfunction, Vaginal Discharge, Vaginal Dryness , Vaginal Odor, Vaginal Pruritis, Other - Menstruation Menstruation: absent: As Per HPI, Amenorrhea, Amenorrhea/ Control, Currently Menstual, Cycle <21 Days, Cycle >35 Days, Cycle Variable, Menses 1-7 Days, Menses >/= 8 Days, Menses Variable, Cycle > 4 Weeks Between, No Menses for 6 Months, Heavy Menses, Light Menses, Normal Menses, Spotting Between Cycles , S/P Hysterectomy, Menopausal, Post Menopausal, Premenarche, Abnormal Vaginal Bleeding, Dysmenorrhea, Other - Musculoskeletal Musculoskeletal: absent: As Per HPI, Abnormal Gait, Arthralgias, Atrophy, Back Pain, Deformity, Joint Swelling, Limited Range of Motion, Loss of Height, Muscle Cramps, Muscle Weakness, Myalgias, Neck Pain, Numbness, Radiating Pain into Limb, Stiffness, Tingling, Other - Integumentary Integumentary: absent: As Per HPI, Acne, Alopecia, Bleeding Lesions, Change in Hair, Change in Nails, Change in Pigmentation, Changing Lesions, Dry Skin, Erythema, Furuncle, Hirsutism, Lesions, New Lesions, Non-Healing Lesions, Photosensitivity, Pruritus, Rash, Skin Pain, Skin Ulcer, Sores, Striae, Swelling , Unusual Bruising, Wounds, Jaundice, Other - Neurological Neurological: absent: As Per HPI, Abnormal Gait, Abnormal Hearing, Abnormal Movements, Abnormal Speech, Behavioral Changes, Burning Sensations, Confusion, Convulsions, Disequilibrium, Dizziness, Numbness, Focal Weakness, Frequent Falls , Headaches, Lack of Coordination, Loss of Vision, Memory Loss, Paresthesias, Radicular Pain, Restless Legs, Sensory Deficit, Syncope, Tingling, Tremor, Vertigo, Weakness, Other Visual Disturbances, Other - Psychiatric Psychiatric: absent: As Per HPI, Abnormal Sleep Pattern, Anhedonia, Anxiety, Auditory Hallucinations, Behavioral Changes, Change in Appetite, Change in Libido, Confusion, Depression, Difficulty Concentrating, Hallucinations, Homicidal Ideation, Hopelessness, Irritability, Memory Loss, Mood Swings, Panic Attacks, Paranoia, Suicidal Ideation, Visual Hallucinations, Tactile Hallucinations, Other - Endocrine Endocrine: absent: As Per HPI, Change in Body Appearance, Change in Libido, Cold Intolorance, Deepening of Voice, Excessive Sweating, Fatigue, Flushing, Heat Intolorance, Increase in Ring/Shoe/Hat Size, Palpitations, Polydipsia, Polyphagia, Polyuria, Other - Hematologic/Lymphatic Hematologic: absent: As Per HPI, Easy Bleeding, Easy Bruising, Lymphadenopathy, Other Past Patient History - Infectious Disease Hx of Infectious Diseases: None - Tetanus Immunizations Tetanus Immunization: Unknown - Past Medical History & Family History Past Medical History?: Yes - Past Social History Smoking Status: Never Smoked Chewing Tobacco Use: No Cigar Use: No Alcohol: None Drugs: Denies Domestic Violence: Negative - CARDIAC Hx Cardiac Disorders: Yes (AF, ? CAD) Hx Congestive Heart Failure: Yes Hx Hypercholesterolemia: Yes Hx Hypertension: Yes - PULMONARY Hx Chronic Obstructive Pulmonary Disease (COPD): Yes (home O2, asthma, bronchitis) - NEUROLOGICAL Hx Neurological Disorder: No - HEENT Hx HEENT Problems: No - RENAL Hx Chronic Kidney Disease: No - ENDOCRINE/METABOLIC Hx Diabetes Mellitus Type 1: Yes Hx Diabetes Mellitus Type 2: Yes Hx Hypothyroidism: Yes (thyroid dz) - HEMATOLOGICAL/ONCOLOGICAL Hx AIDS: No Hx Anemia: Yes Hx Human Immunodeficiency Virus (HIV): No - INTEGUMENTARY Hx Dermatological Problems: Yes - MUSCULOSKELETAL/RHEUMATOLOGICAL Hx Falls: No - GASTROINTESTINAL Hx Bowel Surgery: Yes Hx Colostomy: Yes Hx Diverticulitis: Yes Other/Comment: perforated viscus repaired last admission - GENITOURINARY/GYNECOLOGICAL Hx Genitourinary Disorders: No - PSYCHIATRIC Hx Substance Use: No - SURGICAL HISTORY Hx Cholecystectomy: Yes Hx Hysterectomy: Yes Other/Comment: lumbar laminectomy-remote, repair of colon perforation with colostomy - ANESTHESIA Hx Anesthesia: Yes Hx Anesthesia Reactions: No Hx Malignant Hyperthermia: No Meds Allergies/Adverse Reactions: Allergies Allergy/AdvReac Type Severity Reaction Status Date / Time No Known Allergies Allergy Verified 04/17/18 19:00 - Medications Medications: Current Medications Acetaminophen (Tylenol 325mg Tab) 650 mg PO Q6 PRN PRN Reason: Fever >100.4 F Albuterol/Ipratropium (Duoneb 3 Mg/0.5 Mg (3 Ml) Ud) 3 ml INH RQID [facility] Last Admin: 04/19/18 11:36 Dose: 3 ml Atorvastatin Calcium (Lipitor) 40 mg PO QPM [facility] Last Admin: 04/18/18 17:29 Dose: 40 mg Diltiazem HCl (Cardizem) 30 mg PO QID [facility] Last Admin: 04/19/18 12:29 Dose: 30 mg Enoxaparin Sodium (Lovenox) 40 mg SC DAILY [facility] PRN Reason: Protocol Last Admin: 04/19/18 09:13 Dose: 40 mg Meropenem 1 gm/ Sodium (Chloride) 100 mls @ 100 mls/hr IVPB Q8H [facility] PRN Reason: Protocol Last Admin: 04/19/18 12:25 Dose: 100 mls/hr Fluconazole (Diflucan Iv 400mg/200ml Ns) 200 mls @ 100 mls/hr IVPB DAILY@1700 [facility] Insulin Human Lispro (Humalog) 0 units SC ACHS [facility] PRN Reason: Protocol Last Admin: 04/19/18 12:30 Dose: Not Given Losartan Potassium (Cozaar) 50 mg PO DAILY [facility] Last Admin: 04/19/18 09:14 Dose: 50 mg Olopatadine HCl (Patanol 0.1% Opht Soln) 1 drop OU DAILY [facility] Last Admin: 04/19/18 09:14 Dose: 1 drop Ondansetron HCl (Zofran Odt) 4 mg PO Q6 PRN PRN Reason: Nausea/Vomiting Last Admin: 04/19/18 09:06 Dose: 4 mg Pantoprazole Sodium (Protonix Ec Tab) 40 mg PO DAILY [facility] Last Admin: 04/19/18 09:21 Dose: 40 mg Simethicone (Mylicon Chew Tab) 80 mg PO QID PRN PRN Reason: Flatulence Last Admin: 04/19/18 09:18 Dose: 80 mg Tramadol HCl (Ultram) 50 mg PO TID PRN PRN Reason: Pain, moderate (4-7) Last Admin: 04/18/18 22:18 Dose: 50 mg Physical Exam - Constitutional Appears: Non-toxic, Chronically Ill - Head Exam Head Exam: NORMOCEPHALIC - Eye Exam Eye Exam: absent: Scleral icterus - ENT Exam ENT Exam: Mucous Membranes Dry, Normal External Ear Exam - Neck Exam Neck exam: Negative for: Lymphadenopathy - Respiratory Exam Respiratory Exam: Decreased Breath Sounds, Clear to Auscultation Bilateral - Cardiovascular Exam Cardiovascular Exam: REGULAR RHYTHM, +S1, +S2 - GI/Abdominal Exam GI & Abdominal Exam: Diminished Bowel Sounds, Distended, Soft. absent: Guarding , Rebound, Rigid, Tenderness Additional comments: drain in place wounds healing - Rectal Exam Rectal Exam: Deferred - Exam Exam: NORMAL INSPECTION - Extremities Exam Extremities exam: Positive for: pedal pulses present. Negative for: calf tenderness, pedal edema, tenderness - Back Exam Back exam: absent: CVA tenderness (L), CVA tenderness (R), NORMAL INSPECTION - Neurological Exam Neurological exam: Alert, CN II-XII Intact, Oriented x3, Reflexes Normal - Psychiatric Exam Psychiatric exam: Normal Mood - Skin Skin Exam: Dry Results - Vital Signs Recent Vital Signs: Last Vital Signs Temp 98.1 F 04/19/18 08:12 Pulse 87 04/19/18 12:29 Resp 20 04/19/18 09:05 BP 108/59 L 04/19/18 12:29 Pulse Ox 98 04/19/18 11:03 - Labs Result Diagrams: 04/18/18 05:20 04/18/18 05:20 Labs: Laboratory Results - last 24 hr 04/18/18 04/18/18 04/19/18 16:05 20:59 05:34 POC Glucose (mg/dL) 89 84 67 04/19/18 04/19/18 06:37 10:37 POC Glucose (mg/dL) 92 108 Assessment & Plan (1) Abdominal wall abscess at site of surgical wound Status: Acute Priority: High (2) ESBL (extended spectrum beta-lactamase) producing bacteria infection Status: Acute (3) History of ESBL E. coli infection Status: Acute - Assessment and Plan (Free Text) Assessment: cont drainage, IV antibiotics , wound care, nutritional support, surgical follow up Plan: follow up imaging
[2018-04-19] MEDS: Fluconazole IV 400mg/200ml NS 200 ML IVPB SCH (16:34)
[2018-04-20] MEDS: Meropenem 1 GM in Sodium Chloride 0.9% 100 ML IVPB SCH ×3 (04:00→20:30)
[2018-04-20] MEDS: Insulin Lispro (humaLOG) 100 Units/ml Inj SC SCH ×4 (06:31→22:24)
[2018-04-20] MEDS: Albuterol-Ipratrop 3 mg / 0.5 (3 ml) UD INH SCH ×4 (07:00→19:14)
[2018-04-20] MEDS: Enoxaparin 40 mg Syringe SC SCH (08:13)
[2018-04-20] MEDS: Olopatadine 0.1% Opht SOLN OU SCH (08:13)
[2018-04-20] MEDS: Pantoprazole 40 mg EC Tab PO SCH (08:16)
--- NOTE | 2018-04-20 16:04 | CP.PCM.PN ---
Subjective - Date & Time of Evaluation Date of Evaluation: 04/20/18 Time of Evaluation: 12:00 - Subjective Subjective: General Surgery Progress Note - Dr. Montaño 87F seen and examined in TCU. No issues overnight. Reports decreased appetite. Woundvac in place on continuous suction. No other complaints. Denies n/v/f/d/c/ sob. Objective - Vital Signs/Intake and Output Vital Signs (last 24 hours): Temp Pulse Resp BP Pulse Ox 97.3 F L 75 20 149/70 100 04/20/18 08:38 04/20/18 08:38 04/20/18 08:38 04/20/18 12:52 04/20/18 08:38 - Medications Medications: Current Medications Acetaminophen (Tylenol 325mg Tab) 650 mg PO Q6 PRN PRN Reason: Fever >100.4 F Albuterol/Ipratropium (Duoneb 3 Mg/0.5 Mg (3 Ml) Ud) 3 ml INH RQID [facility] Last Admin: 04/20/18 15:37 Dose: 3 ml Atorvastatin Calcium (Lipitor) 40 mg PO QPM [facility] Last Admin: 04/19/18 17:18 Dose: 40 mg Diltiazem HCl (Cardizem) 30 mg PO QID [facility] Last Admin: 04/20/18 12:52 Dose: 30 mg Enoxaparin Sodium (Lovenox) 40 mg SC DAILY [facility] PRN Reason: Protocol Last Admin: 04/20/18 08:13 Dose: 40 mg Meropenem 1 gm/ Sodium (Chloride) 100 mls @ 100 mls/hr IVPB Q8H [facility] PRN Reason: Protocol Last Admin: 04/20/18 11:43 Dose: 100 mls/hr Fluconazole (Diflucan Iv 400mg/200ml Ns) 200 mls @ 100 mls/hr IVPB DAILY@1700 [facility] Last Admin: 04/19/18 16:34 Dose: 100 mls/hr Insulin Human Lispro (Humalog) 0 units SC ACHS [facility] PRN Reason: Protocol Last Admin: 04/20/18 11:17 Dose: Not Given Losartan Potassium (Cozaar) 50 mg PO DAILY [facility] Last Admin: 04/20/18 08:14 Dose: Not Given Olopatadine HCl (Patanol 0.1% Opht Soln) 1 drop OU DAILY [facility] Last Admin: 04/20/18 08:13 Dose: 1 drop Ondansetron HCl (Zofran Odt) 4 mg PO Q6 PRN PRN Reason: Nausea/Vomiting Last Admin: 04/19/18 09:06 Dose: 4 mg Pantoprazole Sodium (Protonix Ec Tab) 40 mg PO DAILY [facility] Last Admin: 04/20/18 08:16 Dose: 40 mg Simethicone (Mylicon Chew Tab) 80 mg PO QID PRN PRN Reason: Flatulence Last Admin: 04/19/18 09:18 Dose: 80 mg Tramadol HCl (Ultram) 50 mg PO TID PRN PRN Reason: Pain, moderate (4-7) Last Admin: 04/20/18 12:51 Dose: 50 mg - Labs Labs: 04/18/18 05:20 04/18/18 05:20 PT 15.7 Seconds (9.8-13.1) H 04/18/18 05:20 INR 1.4 (0.9-1.2) H 04/18/18 05:20 APTT 35.4 Seconds (25.6-37.1) 04/18/18 05:20 - Constitutional Appears: Non-toxic, No Acute Distress - Head Exam Head Exam: ATRAUMATIC, NORMAL INSPECTION, NORMOCEPHALIC - Eye Exam Eye Exam: EOMI, Normal appearance. absent: Scleral icterus Pupil Exam: PERRL - ENT Exam ENT Exam: Mucous Membranes Moist - Neck Exam Neck Exam: Full ROM - Respiratory Exam Respiratory Exam: NORMAL BREATHING PATTERN. absent: Respiratory Distress - Cardiovascular Exam Cardiovascular Exam: REGULAR RHYTHM - GI/Abdominal Exam GI & Abdominal Exam: Soft Additional comments: woundvac in place on suction with minimal output in canister - Extremities Exam Extremities Exam: Normal Inspection - Neurological Exam Neurological Exam: Alert, Awake, Oriented x3 - Psychiatric Exam Psychiatric exam: Normal Affect, Normal Mood - Skin Skin Exam: Normal Color, Warm Assessment and Plan - Assessment and Plan (Free Text) Assessment: 87F w/ intra abdominal abscess, rectal stump vaginal fistula s/p IR pigtail drain Plan: - Woundvac discontinued; gauze dressing applied - Continue IV abx - Regular diet - f/u IR recs regarding pigtail drain management - Pain regimen per primary team - Discussed with Dr. Montaño
[2018-04-20] MEDS: Fluconazole IV 400mg/200ml NS 200 ML IVPB SCH (16:12)
[2018-04-21] MEDS: Meropenem 1 GM in Sodium Chloride 0.9% 100 ML IVPB SCH ×3 (04:45→20:06)
[2018-04-21] MEDS: Insulin Lispro (humaLOG) 100 Units/ml Inj SC SCH ×4 (06:32→21:23)
--- NOTE | 2018-04-21 08:05 | CP.PCM.PN ---
Subjective - Date & Time of Evaluation Date of Evaluation: 04/21/18 Time of Evaluation: 07:00 - Subjective Subjective: General Surgery Progress Note - Dr. Montaño 87F seen and examined this AM. No acute events overnight. Reports minimal abdominal discomfort. Abdominal dressings clean/dry/intact. Denies n/v/f/d/c/ sob. Objective - Vital Signs/Intake and Output Vital Signs (last 24 hours): Temp Pulse Resp BP Pulse Ox 97.7 F 90 20 140/63 96 04/20/18 19:45 04/20/18 21:21 04/20/18 19:45 04/20/18 21:21 04/20/18 19:45 - Medications Medications: Current Medications Acetaminophen (Tylenol 325mg Tab) 650 mg PO Q6 PRN PRN Reason: Fever >100.4 F Albuterol/Ipratropium (Duoneb 3 Mg/0.5 Mg (3 Ml) Ud) 3 ml INH RQID [facility] Last Admin: 04/20/18 19:14 Dose: 3 ml Atorvastatin Calcium (Lipitor) 40 mg PO QPM [facility] Last Admin: 04/20/18 17:08 Dose: 40 mg Diltiazem HCl (Cardizem) 30 mg PO QID [facility] Last Admin: 04/20/18 21:21 Dose: 30 mg Enoxaparin Sodium (Lovenox) 40 mg SC DAILY [facility] PRN Reason: Protocol Last Admin: 04/20/18 08:13 Dose: 40 mg Fluconazole (Diflucan Iv 400mg/200ml Ns) 200 mls @ 100 mls/hr IVPB DAILY@1700 [facility] Last Admin: 04/20/18 16:12 Dose: 100 mls/hr Insulin Human Lispro (Humalog) 0 units SC ACHS [facility] PRN Reason: Protocol Last Admin: 04/21/18 06:32 Dose: Not Given Losartan Potassium (Cozaar) 50 mg PO DAILY [facility] Last Admin: 04/20/18 08:14 Dose: Not Given Olopatadine HCl (Patanol 0.1% Opht Soln) 1 drop OU DAILY [facility] Last Admin: 04/20/18 08:13 Dose: 1 drop Ondansetron HCl (Zofran Odt) 4 mg PO Q6 PRN PRN Reason: Nausea/Vomiting Last Admin: 04/19/18 09:06 Dose: 4 mg Pantoprazole Sodium (Protonix Ec Tab) 40 mg PO DAILY [facility] Last Admin: 04/20/18 08:16 Dose: 40 mg Simethicone (Mylicon Chew Tab) 80 mg PO QID PRN PRN Reason: Flatulence Last Admin: 04/19/18 09:18 Dose: 80 mg Tramadol HCl (Ultram) 50 mg PO TID PRN PRN Reason: Pain, moderate (4-7) Last Admin: 04/20/18 12:51 Dose: 50 mg - Labs Labs: 04/18/18 05:20 04/18/18 05:20 PT 15.7 Seconds (9.8-13.1) H 04/18/18 05:20 INR 1.4 (0.9-1.2) H 04/18/18 05:20 APTT 35.4 Seconds (25.6-37.1) 04/18/18 05:20 - Constitutional Appears: Non-toxic, No Acute Distress - Head Exam Head Exam: ATRAUMATIC, NORMAL INSPECTION - Eye Exam Eye Exam: EOMI, Normal appearance Pupil Exam: NORMAL ACCOMODATION - ENT Exam ENT Exam: Mucous Membranes Moist - Neck Exam Neck Exam: Full ROM - Respiratory Exam Respiratory Exam: NORMAL BREATHING PATTERN. absent: Respiratory Distress - Cardiovascular Exam Cardiovascular Exam: REGULAR RHYTHM - GI/Abdominal Exam GI & Abdominal Exam: Soft. 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 Montaño
[2018-04-21] MEDS: Albuterol-Ipratrop 3 mg / 0.5 (3 ml) UD INH SCH ×4 (08:34→19:29)
[2018-04-21] MEDS: Enoxaparin 40 mg Syringe SC SCH (09:02)
[2018-04-21] MEDS: Olopatadine 0.1% Opht SOLN OU SCH (09:03)
[2018-04-21] MEDS: Pantoprazole 40 mg EC Tab PO SCH (09:06)
--- NOTE | 2018-04-21 11:05 | CP.PCM.PN ---
Subjective - Date & Time of Evaluation Date of Evaluation: 04/21/18 Time of Evaluation: 10:45 - Subjective Subjective: Patient seen and examined. Claimed she was doing better aside from mild pain on suprapubic pain. Objective - Vital Signs/Intake and Output Vital Signs (last 24 hours): Temp Pulse Resp BP Pulse Ox 97.5 F L 90 20 139/73 97 04/21/18 08:07 04/21/18 09:03 04/21/18 08:07 04/21/18 09:03 04/21/18 08:07 - Medications Medications: Current Medications Acetaminophen (Tylenol 325mg Tab) 650 mg PO Q6 PRN PRN Reason: Fever >100.4 F Albuterol/Ipratropium (Duoneb 3 Mg/0.5 Mg (3 Ml) Ud) 3 ml INH RQID [facility] Last Admin: 04/21/18 08:34 Dose: 3 ml Atorvastatin Calcium (Lipitor) 40 mg PO QPM [facility] Last Admin: 04/20/18 17:08 Dose: 40 mg Diltiazem HCl (Cardizem) 30 mg PO QID [facility] Last Admin: 04/21/18 09:02 Dose: 30 mg Fluconazole (Diflucan Iv 400mg/200ml Ns) 200 mls @ 100 mls/hr IVPB DAILY@1700 [facility] Last Admin: 04/20/18 16:12 Dose: 100 mls/hr Meropenem 1 gm/ Sodium (Chloride) 100 mls @ 100 mls/hr IVPB Q8 [facility] PRN Reason: Protocol Insulin Human Lispro (Humalog) 0 units SC ACHS [facility] PRN Reason: Protocol Last Admin: 04/21/18 06:32 Dose: Not Given Losartan Potassium (Cozaar) 50 mg PO DAILY [facility] Last Admin: 04/21/18 09:03 Dose: 50 mg Olopatadine HCl (Patanol 0.1% Opht Soln) 1 drop OU DAILY [facility] Last Admin: 04/21/18 09:03 Dose: 1 drop Ondansetron HCl (Zofran Odt) 4 mg PO Q6 PRN PRN Reason: Nausea/Vomiting Last Admin: 04/19/18 09:06 Dose: 4 mg Pantoprazole Sodium (Protonix Ec Tab) 40 mg PO DAILY [facility] Last Admin: 04/21/18 09:06 Dose: 40 mg Simethicone (Mylicon Chew Tab) 80 mg PO QID PRN PRN Reason: Flatulence Last Admin: 04/19/18 09:18 Dose: 80 mg Tramadol HCl (Ultram) 50 mg PO TID PRN PRN Reason: Pain, moderate (4-7) Last Admin: 04/20/18 12:51 Dose: 50 mg - Labs Labs: 04/18/18 05:20 04/18/18 05:20 PT 15.7 Seconds (9.8-13.1) H 04/18/18 05:20 INR 1.4 (0.9-1.2) H 04/18/18 05:20 APTT 35.4 Seconds (25.6-37.1) 04/18/18 05:20 - Constitutional Appears: No Acute Distress - Head Exam Head Exam: ATRAUMATIC - Eye Exam Eye Exam: absent: Scleral icterus - ENT Exam ENT Exam: Mucous Membranes Moist - Neck Exam Neck Exam: absent: Meningismus - Respiratory Exam Respiratory Exam: absent: Rales, Rhonchi, Wheezes, Respiratory Distress - Cardiovascular Exam Cardiovascular Exam: REGULAR RHYTHM, +S1, +S2 - GI/Abdominal Exam GI & Abdominal Exam: Soft. absent: Tenderness Additional comments: colostomy bag intact and empty, slight erythema on lower border of midline surgical incision, no discharge - Rectal Exam Rectal Exam: Deferred - Neurological Exam Neurological Exam: Alert, Oriented x3 - Psychiatric Exam Psychiatric exam: Normal Affect - Skin Skin Exam: Dry, Intact Assessment and Plan - Assessment and Plan (Free Text) Assessment: 87 yo female with history of CHF, COPD, AFib, HTN, DM2 and Hypothyroidism had colon resection with colostomy on 02/25/2018 after perforating colon during colonoscopy. Post op days were uneventful and patient was discharged in stable condition 8 days later. A month later patient was brought back because of abdominal pain associated with purulent discharge from the surgical wound. CT scan of abdomen showed large pelvic abscess. Patient was started on IV antibiotics and IR drained the abscess followed with wound vac placement. Repeat CT scan showed reduced pelvic abscess and new recto-vaginal fistula. Patient was transferred to TCU for continuation of IV antibiotic and therapy. 1. Pelvic Abscess and Abdominal Wound Abscess at surgical site minimal output on wound vac wound vac to be changed every [address] scan in a week wound culture grew Proteus and ESBL E Coli continue Meropenem and Diflucan ID and surgery on consult Contact isolation Pain management Promote ambulation with PT As per ID will need to continue antibiotics at least 3 weeks 2. Diabetes mellitus, type II BS controlled accucheck ACHS with coverage 3 CHF (congestive heart failure), chronic diastolic dysfunction continue Losartan 4. Atrial fibrillation, chronic with RVR Chronic and stable off anticoagulation because of recent GI bleed. Family refuses any further therapeutic anticoagulation in the future on Cardizem 5. COPD (chronic obstructive pulmonary disease) chronic atelectasis/pleural effusion on CT scan Duoneb treatments continue Pulmicort 6. Hypertension BP stable continue Cardizem and Losartan 7. Hypothyroidism continue Levothyroxine 8. Mild anemia chronic, stable 9. Obesity BMI 31 10 DVT prophylaxis continue Lovenox
--- NOTE | 2018-04-21 11:19 | CP.PCM.CON ---
History of Present Illness - History of Present Illness History of Present Illness: Seen in subacute rehab for followup after discharge from acute medicine. Seated in a wheelchair at the bedside. Her mmod is a little depressed because of her current problems. She does not complain of shortness of breath, and there has been no cough or chest pain. Her appetite is a little better, and there has been no abdominal pain. Past Patient History - Infectious Disease Hx of Infectious Diseases: None - Tetanus Immunizations Tetanus Immunization: Unknown - Past Medical History & Family History Past Medical History?: Yes - Past Social History Smoking Status: Never Smoked Chewing Tobacco Use: No Cigar Use: No Alcohol: None Drugs: Denies Domestic Violence: Negative - CARDIAC Hx Cardiac Disorders: Yes (AF, ? CAD) Hx Congestive Heart Failure: Yes Hx Hypercholesterolemia: Yes Hx Hypertension: Yes - PULMONARY Hx Chronic Obstructive Pulmonary Disease (COPD): Yes (home O2, asthma, bronchitis) - NEUROLOGICAL Hx Neurological Disorder: No - HEENT Hx HEENT Problems: No - RENAL Hx Chronic Kidney Disease: No - ENDOCRINE/METABOLIC Hx Diabetes Mellitus Type 1: Yes Hx Diabetes Mellitus Type 2: Yes Hx Hypothyroidism: Yes (thyroid dz) - HEMATOLOGICAL/ONCOLOGICAL Hx AIDS: No Hx Anemia: Yes Hx Human Immunodeficiency Virus (HIV): No - INTEGUMENTARY Hx Dermatological Problems: Yes - MUSCULOSKELETAL/RHEUMATOLOGICAL Hx Falls: No - GASTROINTESTINAL Hx Bowel Surgery: Yes Hx Colostomy: Yes Hx Diverticulitis: Yes Other/Comment: perforated viscus repaired last admission - GENITOURINARY/GYNECOLOGICAL Hx Genitourinary Disorders: No - PSYCHIATRIC Hx Substance Use: No - SURGICAL HISTORY Hx Cholecystectomy: Yes Hx Hysterectomy: Yes Other/Comment: lumbar laminectomy-remote, repair of colon perforation with colostomy - ANESTHESIA Hx Anesthesia: Yes Hx Anesthesia Reactions: No Hx Malignant Hyperthermia: No Meds Allergies/Adverse Reactions: Allergies Allergy/AdvReac Type Severity Reaction Status Date / Time No Known Allergies Allergy Verified 04/17/18 19:00 - Medications Medications: Current Medications Acetaminophen (Tylenol 325mg Tab) 650 mg PO Q6 PRN PRN Reason: Fever >100.4 F Albuterol/Ipratropium (Duoneb 3 Mg/0.5 Mg (3 Ml) Ud) 3 ml INH RQID [facility] Last Admin: 04/21/18 08:34 Dose: 3 ml Atorvastatin Calcium (Lipitor) 40 mg PO QPM [facility] Last Admin: 04/20/18 17:08 Dose: 40 mg Diltiazem HCl (Cardizem) 30 mg PO QID [facility] Last Admin: 04/21/18 09:02 Dose: 30 mg Fluconazole (Diflucan Iv 400mg/200ml Ns) 200 mls @ 100 mls/hr IVPB DAILY@1700 [facility] Last Admin: 04/20/18 16:12 Dose: 100 mls/hr Meropenem 1 gm/ Sodium (Chloride) 100 mls @ 100 mls/hr IVPB Q8 [facility] PRN Reason: Protocol Insulin Human Lispro (Humalog) 0 units SC ACHS [facility] PRN Reason: Protocol Last Admin: 04/21/18 06:32 Dose: Not Given Losartan Potassium (Cozaar) 50 mg PO DAILY [facility] Last Admin: 04/21/18 09:03 Dose: 50 mg Olopatadine HCl (Patanol 0.1% Opht Soln) 1 drop OU DAILY [facility] Last Admin: 04/21/18 09:03 Dose: 1 drop Ondansetron HCl (Zofran Odt) 4 mg PO Q6 PRN PRN Reason: Nausea/Vomiting Last Admin: 04/19/18 09:06 Dose: 4 mg Pantoprazole Sodium (Protonix Ec Tab) 40 mg PO DAILY [facility] Last Admin: 04/21/18 09:06 Dose: 40 mg Simethicone (Mylicon Chew Tab) 80 mg PO QID PRN PRN Reason: Flatulence Last Admin: 04/19/18 09:18 Dose: 80 mg Tramadol HCl (Ultram) 50 mg PO TID PRN PRN Reason: Pain, moderate (4-7) Last Admin: 04/20/18 12:51 Dose: 50 mg Physical Exam - Additional Findings Additional findings: Mood appears slightly depressed. Cooperates with physical exam. Memory is intact, no focal motor weakness. Neck is supple, trachea midline, no JVD. Pharynx is pink and moist. Nares are patent bilaterally w/o bleeding. No dullness to chest percussion. Diminished breath sounds bilaterally w/o audible wheezing or bronchial breathing. Few dry basal rales posteriorly. Abdomen is soft, drainage catheter on right, colostomy on left, + bowel sounds. No cyanosis, no dependant edema. Results - Vital Signs Recent Vital Signs: Last Vital Signs Temp 97.5 F L 04/21/18 08:07 Pulse 90 04/21/18 09:03 Resp 20 04/21/18 08:07 BP 139/73 04/21/18 09:03 Pulse Ox 97 04/21/18 08:07 - Labs Result Diagrams: 04/18/18 05:20 04/18/18 05:20 Labs: Laboratory Results - last 24 hr 04/20/18 04/20/18 04/21/18 16:02 20:41 05:03 POC Glucose (mg/dL) 97 105 64 L Assessment & Plan (1) Pelvic abscess Status: Acute Priority: High (2) Anemia Status: Chronic Priority: Low (3) COPD (chronic obstructive pulmonary disease) Status: Chronic Priority: Medium (4) BAR (obstructive sleep apnea) Status: Inactive Priority: Medium - Assessment and Plan (Free Text) Plan: Continue current medical therapy. Follow directions of the surgical team. - Date & Time Date: 04/21/18 Time: 11:30
--- NOTE | 2018-04-21 14:08 | PN ---
DATE: 04/21/2018 Her wounds are improving nicely. Dr. Perla from IR will examine the drainage from the catheter and determine whether remove it or not. I have a feeling that the best course would be to dilate the area and probably put a bigger catheter this area is completely drained yet. If this would recur, I consider an operation. At this time, the wounds look very nice. She is eating without nausea. Peter Montaño MD
[2018-04-21] MEDS: Saccharomyces Boulardi 250 mg Cap PO SCH (16:47)
[2018-04-21] MEDS: Fluconazole IV 400mg/200ml NS 200 ML IVPB SCH (16:49)
[2018-04-22] MEDS: Meropenem 1 GM in Sodium Chloride 0.9% 100 ML IVPB SCH ×3 (04:48→21:20)
[2018-04-22] MEDS: Insulin Lispro (humaLOG) 100 Units/ml Inj SC SCH ×4 (06:41→21:52)
[2018-04-22] MEDS: Albuterol-Ipratrop 3 mg / 0.5 (3 ml) UD INH SCH ×4 (07:20→19:20)
[2018-04-22] MEDS: Saccharomyces Boulardi 250 mg Cap PO SCH ×2 (09:28→17:40)
[2018-04-22] MEDS: Pantoprazole 40 mg EC Tab PO SCH (09:28)
[2018-04-22] MEDS: Enoxaparin 40 mg Syringe SC SCH (09:53)
[2018-04-22] MEDS: Olopatadine 0.1% Opht SOLN OU SCH (09:53)
--- NOTE | 2018-04-22 12:18 | CP.PCM.PN ---
Subjective - Date & Time of Evaluation Date of Evaluation: 04/22/18 Time of Evaluation: 10:00 - Subjective Subjective: drain in place IV rx in progress NAD Objective - Vital Signs/Intake and Output Vital Signs (last 24 hours): Temp Pulse Resp BP Pulse Ox 97.5 F L 82 20 145/74 100 04/22/18 09:32 04/22/18 09:32 04/22/18 09:32 04/22/18 09:32 04/22/18 09:32 - Medications Medications: Current Medications Acetaminophen (Tylenol 325mg Tab) 650 mg PO 0900,2100 [facility] Last Admin: 04/22/18 09:29 Dose: 650 mg Albuterol/Ipratropium (Duoneb 3 Mg/0.5 Mg (3 Ml) Ud) 3 ml INH RQID [facility] Last Admin: 04/22/18 11:10 Dose: 3 ml Atorvastatin Calcium (Lipitor) 40 mg PO QPM [facility] Last Admin: 04/21/18 18:06 Dose: 40 mg Diltiazem HCl (Cardizem) 30 mg PO QID [facility] Last Admin: 04/22/18 09:27 Dose: 30 mg Enoxaparin Sodium (Lovenox) 40 mg SC DAILY [facility] PRN Reason: Protocol Last Admin: 04/22/18 09:53 Dose: 40 mg Fluconazole (Diflucan Iv 400mg/200ml Ns) 200 mls @ 100 mls/hr IVPB DAILY@1700 [facility] Last Admin: 04/21/18 16:49 Dose: 100 mls/hr Meropenem 1 gm/ Sodium (Chloride) 100 mls @ 100 mls/hr IVPB Q8H [facility] PRN Reason: Protocol Last Admin: 04/22/18 04:48 Dose: 100 mls/hr Insulin Human Lispro (Humalog) 0 units SC ACHS [facility] PRN Reason: Protocol Last Admin: 04/22/18 06:41 Dose: Not Given Losartan Potassium (Cozaar) 50 mg PO DAILY [facility] Last Admin: 04/22/18 09:28 Dose: 50 mg Olopatadine HCl (Patanol 0.1% Opht Soln) 1 drop OU DAILY [facility] Last Admin: 04/22/18 09:53 Dose: 1 drop Ondansetron HCl (Zofran Odt) 4 mg PO Q6 PRN PRN Reason: Nausea/Vomiting Last Admin: 04/19/18 09:06 Dose: 4 mg Pantoprazole Sodium (Protonix Ec Tab) 40 mg PO DAILY [facility] Last Admin: 04/22/18 09:28 Dose: 40 mg Saccharomyces Boulardii (Florastor) 250 mg PO BID [facility] Last Admin: 04/22/18 09:28 Dose: 250 mg Senna/Docusate Sodium (Senokot S 50 Mg-8.6 Mg) 1 tab PO [facility] Simethicone (Mylicon Chew Tab) 80 mg PO QID PRN PRN Reason: Flatulence Last Admin: 04/19/18 09:18 Dose: 80 mg Tramadol HCl (Ultram) 50 mg PO TID PRN PRN Reason: Pain, moderate (4-7) Last Admin: 04/20/18 12:51 Dose: 50 mg - Labs Labs: 04/18/18 05:20 04/18/18 05:20 PT 15.7 Seconds (9.8-13.1) H 04/18/18 05:20 INR 1.4 (0.9-1.2) H 04/18/18 05:20 APTT 35.4 Seconds (25.6-37.1) 04/18/18 05:20 - Constitutional Appears: Non-toxic, Chronically Ill - Head Exam Head Exam: NORMOCEPHALIC - Eye Exam Eye Exam: absent: Scleral icterus - ENT Exam ENT Exam: Mucous Membranes Dry - Neck Exam Neck Exam: absent: Lymphadenopathy - Respiratory Exam Respiratory Exam: Decreased Breath Sounds - Cardiovascular Exam Cardiovascular Exam: REGULAR RHYTHM - GI/Abdominal Exam GI & Abdominal Exam: Distended, Soft Assessment and Plan (1) Abdominal wall abscess at site of surgical wound Status: Acute (2) ESBL (extended spectrum beta-lactamase) producing bacteria infection Status: Acute (3) History of ESBL E. coli infection Status: Acute
[2018-04-22] MEDS: Fluconazole IV 400mg/200ml NS 200 ML IVPB SCH (17:40)
[2018-04-22] MEDS: Docusate-Senna 50 mg-8.6 mg Tab PO SCH (21:24)
[2018-04-23] MEDS: Meropenem 1 GM in Sodium Chloride 0.9% 100 ML IVPB SCH ×3 (04:16→20:30)
[2018-04-23] MEDS: Insulin Lispro (humaLOG) 100 Units/ml Inj SC SCH ×4 (06:36→21:45)
[2018-04-23] MEDS: Albuterol-Ipratrop 3 mg / 0.5 (3 ml) UD INH SCH ×4 (08:04→19:26)
[2018-04-23] MEDS: Enoxaparin 40 mg Syringe SC SCH (09:15)
[2018-04-23] MEDS: Saccharomyces Boulardi 250 mg Cap PO SCH ×2 (09:15→17:45)
[2018-04-23] MEDS: Olopatadine 0.1% Opht SOLN OU SCH (09:16)
[2018-04-23] MEDS: Pantoprazole 40 mg EC Tab PO SCH (09:16)
[2018-04-23] MEDS ORDERED: Chlorhexidine Gluconate 1 APPL/PKT TP ONE (10:03)
--- NOTE | 2018-04-23 11:11 | CP.PCM.PN ---
Subjective - Date & Time of Evaluation Date of Evaluation: 04/23/18 Time of Evaluation: 11:11 - Subjective Subjective: Lying in bed, mood is good. Still without BM, but gas + in colostomy. Able to make some progress with physical therapy. Had a suppository inserted via colostomy stoma. Breath sounds remain good for her w/o wheezes. Few dependant dry rales . Continue on present regimen. Objective - Vital Signs/Intake and Output Vital Signs (last 24 hours): Temp Pulse Resp BP Pulse Ox 97.7 F 88 18 138/69 98 04/23/18 08:26 04/23/18 09:14 04/23/18 09:14 04/23/18 09:14 04/23/18 08:26 - Medications Medications: Current Medications Acetaminophen (Tylenol 325mg Tab) 650 mg PO 0900,2100 [facility] Last Admin: 04/23/18 09:19 Dose: 650 mg Albuterol/Ipratropium (Duoneb 3 Mg/0.5 Mg (3 Ml) Ud) 3 ml INH RQID [facility] Last Admin: 04/23/18 08:04 Dose: 3 ml Atorvastatin Calcium (Lipitor) 40 mg PO QPM [facility] Last Admin: 04/22/18 17:40 Dose: 40 mg Diltiazem HCl (Cardizem) 30 mg PO QID [facility] Last Admin: 04/23/18 09:14 Dose: 30 mg Enoxaparin Sodium (Lovenox) 40 mg SC DAILY [facility] PRN Reason: Protocol Last Admin: 04/23/18 09:15 Dose: 40 mg Fluconazole (Diflucan Iv 400mg/200ml Ns) 200 mls @ 100 mls/hr IVPB DAILY@1700 [facility] Last Admin: 04/22/18 17:40 Dose: 100 mls/hr Meropenem 1 gm/ Sodium (Chloride) 100 mls @ 100 mls/hr IVPB Q8H [facility] PRN Reason: Protocol Last Admin: 04/23/18 04:16 Dose: 100 mls/hr Insulin Human Lispro (Humalog) 0 units SC ACHS [facility] PRN Reason: Protocol Last Admin: 04/23/18 06:36 Dose: Not Given Losartan Potassium (Cozaar) 50 mg PO DAILY [facility] Last Admin: 04/23/18 09:14 Dose: 50 mg Olopatadine HCl (Patanol 0.1% Opht Soln) 1 drop OU DAILY [facility] Last Admin: 04/23/18 09:16 Dose: 1 drop Ondansetron HCl (Zofran Odt) 4 mg PO Q6 PRN PRN Reason: Nausea/Vomiting Last Admin: 04/19/18 09:06 Dose: 4 mg Pantoprazole Sodium (Protonix Ec Tab) 40 mg PO DAILY [facility] Last Admin: 04/23/18 09:16 Dose: 40 mg Saccharomyces Boulardii (Florastor) 250 mg PO BID [facility] Last Admin: 04/23/18 09:15 Dose: 250 mg Senna/Docusate Sodium (Senokot S 50 Mg-8.6 Mg) 1 tab PO HS [facility] Last Admin: 04/22/18 21:24 Dose: 1 tab Simethicone (Mylicon Chew Tab) 80 mg PO QID PRN PRN Reason: Flatulence Last Admin: 04/19/18 09:18 Dose: 80 mg Tramadol HCl (Ultram) 50 mg PO TID PRN PRN Reason: Pain, moderate (4-7) Last Admin: 04/20/18 12:51 Dose: 50 mg - Labs Labs: 04/18/18 05:20 04/18/18 05:20 PT 15.7 Seconds (9.8-13.1) H 04/18/18 05:20 INR 1.4 (0.9-1.2) H 04/18/18 05:20 APTT 35.4 Seconds (25.6-37.1) 04/18/18 05:20 Assessment and Plan (1) Pelvic abscess Status: Acute (2) Anemia Status: Chronic (3) COPD (chronic obstructive pulmonary disease) Status: Chronic (4) BAR (obstructive sleep apnea) Status: Inactive
[2018-04-23] MEDS: Simethicone 80 mg Chewtab PO PRN (14:03)
--- NOTE | 2018-04-23 14:34 | CP.PCM.PN ---
Subjective - Date & Time of Evaluation Date of Evaluation: 04/23/18 Time of Evaluation: 10:00 - Subjective Subjective: Patient seen and examined. Claimed she was doing fine. Objective - Vital Signs/Intake and Output Vital Signs (last 24 hours): Temp Pulse Resp BP Pulse Ox 97.7 F 91 H 18 113/56 L 98 04/23/18 08:26 04/23/18 12:56 04/23/18 09:14 04/23/18 12:56 04/23/18 08:26 - Medications Medications: Current Medications Acetaminophen (Tylenol 325mg Tab) 650 mg PO 0900,2100 [facility] Last Admin: 04/23/18 09:19 Dose: 650 mg Albuterol/Ipratropium (Duoneb 3 Mg/0.5 Mg (3 Ml) Ud) 3 ml INH RQID [facility] Last Admin: 04/23/18 11:22 Dose: 3 ml Atorvastatin Calcium (Lipitor) 40 mg PO QPM [facility] Last Admin: 04/22/18 17:40 Dose: 40 mg Diltiazem HCl (Cardizem) 30 mg PO QID [facility] Last Admin: 04/23/18 12:56 Dose: Not Given Enoxaparin Sodium (Lovenox) 40 mg SC DAILY [facility] PRN Reason: Protocol Last Admin: 04/23/18 09:15 Dose: 40 mg Fluconazole (Diflucan Iv 400mg/200ml Ns) 200 mls @ 100 mls/hr IVPB DAILY@1700 [facility] Last Admin: 04/22/18 17:40 Dose: 100 mls/hr Meropenem 1 gm/ Sodium (Chloride) 100 mls @ 100 mls/hr IVPB Q8H [facility] PRN Reason: Protocol Last Admin: 04/23/18 12:52 Dose: 100 mls/hr Insulin Human Lispro (Humalog) 0 units SC ACHS [facility] PRN Reason: Protocol Last Admin: 04/23/18 12:20 Dose: Not Given Losartan Potassium (Cozaar) 50 mg PO DAILY [facility] Last Admin: 04/23/18 09:14 Dose: 50 mg Olopatadine HCl (Patanol 0.1% Opht Soln) 1 drop OU DAILY [facility] Last Admin: 04/23/18 09:16 Dose: 1 drop Ondansetron HCl (Zofran Odt) 4 mg PO Q6 PRN PRN Reason: Nausea/Vomiting Last Admin: 04/19/18 09:06 Dose: 4 mg Pantoprazole Sodium (Protonix Ec Tab) 40 mg PO DAILY [facility] Last Admin: 04/23/18 09:16 Dose: 40 mg Saccharomyces Boulardii (Florastor) 250 mg PO BID [facility] Last Admin: 04/23/18 09:15 Dose: 250 mg Senna/Docusate Sodium (Senokot S 50 Mg-8.6 Mg) 1 tab PO HS [facility] Last Admin: 04/22/18 21:24 Dose: 1 tab Simethicone (Mylicon Chew Tab) 80 mg PO QID PRN PRN Reason: Flatulence Last Admin: 04/23/18 14:03 Dose: 80 mg Tramadol HCl (Ultram) 50 mg PO TID PRN PRN Reason: Pain, moderate (4-7) Last Admin: 04/20/18 12:51 Dose: 50 mg - Labs Labs: 04/18/18 05:20 04/18/18 05:20 PT 15.7 Seconds (9.8-13.1) H 04/18/18 05:20 INR 1.4 (0.9-1.2) H 04/18/18 05:20 APTT 35.4 Seconds (25.6-37.1) 04/18/18 05:20 - Constitutional Appears: No Acute Distress - Head Exam Head Exam: ATRAUMATIC - Eye Exam Eye Exam: absent: Scleral icterus - ENT Exam ENT Exam: Mucous Membranes Moist - Neck Exam Neck Exam: absent: Meningismus - Respiratory Exam Respiratory Exam: absent: Rales, Rhonchi, Wheezes, Respiratory Distress - Cardiovascular Exam Cardiovascular Exam: REGULAR RHYTHM, +S1, +S2 - GI/Abdominal Exam GI & Abdominal Exam: Soft. absent: Tenderness - Rectal Exam Rectal Exam: Deferred - Neurological Exam Neurological Exam: Alert, Oriented x3 - Psychiatric Exam Psychiatric exam: Normal Affect - Skin Skin Exam: Dry, Intact Assessment and Plan - Assessment and Plan (Free Text) Assessment: 87 yo female with history of CHF, COPD, AFib, HTN, DM2 and Hypothyroidism had colon resection with colostomy on 02/25/2018 after perforating colon during colonoscopy. Post op days were uneventful and patient was discharged in stable condition 8 days later. A month later patient was brought back because of abdominal pain associated with purulent discharge from the surgical wound. CT scan of abdomen showed large pelvic abscess. Patient was started on IV antibiotics and IR drained the abscess followed with wound vac placement. Repeat CT scan showed reduced pelvic abscess and new recto-vaginal fistula. Patient was transferred to TCU for continuation of IV antibiotic and therapy. 1. Pelvic Abscess and Abdominal Wound Abscess at surgical site minimal output on wound vac wound vac to be changed every [address] scan in a week wound culture grew Proteus and ESBL E Coli continue Meropenem and Diflucan Dr Garcia on ID consult continue contact isolation Pain management Promote ambulation with PT As per ID will need to continue antibiotics at least 3 weeks 2. Diabetes mellitus, type II BS controlled accucheck ACHS with coverage 3. CHF, chronic diastolic dysfunction continue Losartan 4. Atrial fibrillation, chronic with RVR chronic and stable off anticoagulation because of recent GI bleed. family refuses any further therapeutic anticoagulation in the future on Cardizem 5. COPD chronic atelectasis/pleural effusion on CT scan Duoneb treatments continue Pulmicort 6. Hypertension BP stable continue Cardizem and Losartan 7. Hypothyroidism continue Levothyroxine 8. Mild anemia chronic, stable 9. Obesity BMI 31 10. DVT prophylaxis continue Lovenox
[2018-04-23] MEDS: Fluconazole IV 400mg/200ml NS 200 ML IVPB SCH (16:54)
[2018-04-23] MEDS: Docusate-Senna 50 mg-8.6 mg Tab PO SCH (21:53)
[2018-04-24] MEDS: Meropenem 1 GM in Sodium Chloride 0.9% 100 ML IVPB SCH ×3 (04:48→21:00)
[2018-04-24 05:57] LABS: BASO # 0.1 K/uL (0.0-0.2); BASO % 0.7 % (0.0-2.0); EOS # 0.2 K/uL (0.0-0.7); HEMOGLOBIN 10.4 g/dL (12.0-16.0); LYMPH # 3.7 K/uL (1.0-4.3); MEAN CELL VOLUME 89.7 fl (81.0-99.0); MEAN CORPUSCULAR HEMOGLOBIN 29.2 pg (27.0-31.0); MEAN CORPUSCULAR HGB CONC 32.5 g/dL (33.0-37.0); MEAN PLATELET VOLUME 7.9 fl (7.2-11.7); MONO # 0.7 K/uL (0.0-0.8); MONO % 7.9 % (0.0-10.0); NEUT % 46.4 % (50.0-75.0); RBC 3.57 Mil/uL (3.80-5.20); RED CELL DISTRIBUTION WIDTH 20.4 % (11.5-14.5); WHITE BLOOD COUNT 8.6 K/uL (4.8-10.8)
[2018-04-24] MEDS: Insulin Lispro (humaLOG) 100 Units/ml Inj SC SCH ×4 (06:56→21:15)
[2018-04-24] MEDS: Olopatadine 0.1% Opht SOLN OU SCH (08:15)
[2018-04-24] MEDS: Enoxaparin 40 mg Syringe SC SCH (08:16)
[2018-04-24] MEDS: Saccharomyces Boulardi 250 mg Cap PO SCH ×2 (08:16→16:43)
[2018-04-24] MEDS: Pantoprazole 40 mg EC Tab PO SCH (08:19)
[2018-04-24] MEDS: Albuterol-Ipratrop 3 mg / 0.5 (3 ml) UD INH SCH ×4 (08:22→20:04)
--- NOTE | 2018-04-24 10:11 | CP.PCM.PN ---
Subjective - Date & Time of Evaluation Date of Evaluation: 04/24/18 Time of Evaluation: 10:02 - Subjective Subjective: Remains stable, presently seated in wheelchair. Drainage catheter removed yesterday by IR. Patient is still having small amount of vaginal discharge. Bowel movements (multiple) via colostomy. Remains on meropenem, no leukocytosis. Will discuss with hospitalist and vice president of talent acquisition regarding a follow up CT abdomen/pelvis. Objective - Vital Signs/Intake and Output Vital Signs (last 24 hours): Temp Pulse Resp BP Pulse Ox 97.7 F 84 20 144/86 98 04/24/18 08:44 04/24/18 08:44 04/24/18 08:44 04/24/18 08:44 04/24/18 08:44 - Medications Medications: Current Medications Acetaminophen (Tylenol 325mg Tab) 650 mg PO 0900,2100 [facility] Last Admin: 04/24/18 08:19 Dose: 650 mg Albuterol/Ipratropium (Duoneb 3 Mg/0.5 Mg (3 Ml) Ud) 3 ml INH RQID [facility] Last Admin: 04/24/18 08:22 Dose: 3 ml Atorvastatin Calcium (Lipitor) 40 mg PO QPM [facility] Last Admin: 04/23/18 17:45 Dose: 40 mg Diltiazem HCl (Cardizem) 30 mg PO QID [facility] Last Admin: 04/24/18 08:16 Dose: 30 mg Enoxaparin Sodium (Lovenox) 40 mg SC DAILY [facility] PRN Reason: Protocol Last Admin: 04/24/18 08:16 Dose: 40 mg Fluconazole (Diflucan Iv 400mg/200ml Ns) 200 mls @ 100 mls/hr IVPB DAILY@1700 [facility] Last Admin: 04/23/18 16:54 Dose: 100 mls/hr Meropenem 1 gm/ Sodium (Chloride) 100 mls @ 100 mls/hr IVPB Q8H [facility] PRN Reason: Protocol Last Admin: 04/24/18 04:48 Dose: 100 mls/hr Insulin Human Lispro (Humalog) 0 units SC ACHS [facility] PRN Reason: Protocol Last Admin: 04/24/18 06:56 Dose: Not Given Losartan Potassium (Cozaar) 50 mg PO DAILY [facility] Last Admin: 04/24/18 08:17 Dose: 50 mg Olopatadine HCl (Patanol 0.1% Opht Soln) 1 drop OU DAILY [facility] Last Admin: 04/24/18 08:15 Dose: 1 drop Ondansetron HCl (Zofran Odt) 4 mg PO Q6 PRN PRN Reason: Nausea/Vomiting Last Admin: 04/24/18 00:09 Dose: 4 mg Pantoprazole Sodium (Protonix Ec Tab) 40 mg PO DAILY [facility] Last Admin: 04/24/18 08:19 Dose: 40 mg Saccharomyces Boulardii (Florastor) 250 mg PO BID [facility] Last Admin: 04/24/18 08:16 Dose: 250 mg Senna/Docusate Sodium (Senokot S 50 Mg-8.6 Mg) 1 tab PO HS [facility] Last Admin: 04/23/18 21:53 Dose: 1 tab Simethicone (Mylicon Chew Tab) 80 mg PO QID PRN PRN Reason: Flatulence Last Admin: 04/23/18 14:03 Dose: 80 mg Tramadol HCl (Ultram) 50 mg PO TID PRN PRN Reason: Pain, moderate (4-7) Last Admin: 04/20/18 12:51 Dose: 50 mg - Labs Labs: 04/24/18 05:51 04/18/18 05:20 PT 15.7 Seconds (9.8-13.1) H 04/18/18 05:20 INR 1.4 (0.9-1.2) H 04/18/18 05:20 APTT 35.4 Seconds (25.6-37.1) 04/18/18 05:20 Assessment and Plan (1) Pelvic abscess Status: Acute (2) Anemia Status: Chronic (3) COPD (chronic obstructive pulmonary disease) Status: Chronic (4) BAR (obstructive sleep apnea) Status: Inactive
[2018-04-24 13:25] LABS: BLOOD UREA NITROGEN 7 mg/dl (7-17); CALCIUM 7.7 mg/dL (8.4-10.2); GFR AFRICAN-AMERICAN > 60; GFR NON-AFRICAN AMERICAN > 60
--- NOTE | 2018-04-24 14:55 | CP.PCM.PN ---
Subjective - Date & Time of Evaluation Date of Evaluation: 04/24/18 Time of Evaluation: 14:55 Objective - Vital Signs/Intake and Output Vital Signs (last 24 hours): Temp Pulse Resp BP Pulse Ox 97.7 F 90 20 109/55 L 98 04/24/18 08:44 04/24/18 12:45 04/24/18 08:44 04/24/18 12:45 04/24/18 08:44 - Medications Medications: Current Medications Acetaminophen (Tylenol 325mg Tab) 650 mg PO 0900,2100 [facility] Last Admin: 04/24/18 08:19 Dose: 650 mg Albuterol/Ipratropium (Duoneb 3 Mg/0.5 Mg (3 Ml) Ud) 3 ml INH RQID [facility] Last Admin: 04/24/18 11:36 Dose: 3 ml Atorvastatin Calcium (Lipitor) 40 mg PO QPM [facility] Last Admin: 04/23/18 17:45 Dose: 40 mg Diltiazem HCl (Cardizem) 30 mg PO QID [facility] Last Admin: 04/24/18 12:45 Dose: Not Given Enoxaparin Sodium (Lovenox) 40 mg SC DAILY [facility] PRN Reason: Protocol Last Admin: 04/24/18 08:16 Dose: 40 mg Fluconazole (Diflucan Iv 400mg/200ml Ns) 200 mls @ 100 mls/hr IVPB DAILY@1700 [facility] Last Admin: 04/23/18 16:54 Dose: 100 mls/hr Meropenem 1 gm/ Sodium (Chloride) 100 mls @ 100 mls/hr IVPB Q8H [facility] PRN Reason: Protocol Last Admin: 04/24/18 12:08 Dose: 100 mls/hr Insulin Human Lispro (Humalog) 0 units SC ACHS [facility] PRN Reason: Protocol Last Admin: 04/24/18 12:08 Dose: Not Given Losartan Potassium (Cozaar) 50 mg PO DAILY [facility] Last Admin: 04/24/18 08:17 Dose: 50 mg Olopatadine HCl (Patanol 0.1% Opht Soln) 1 drop OU DAILY [facility] Last Admin: 04/24/18 08:15 Dose: 1 drop Ondansetron HCl (Zofran Odt) 4 mg PO Q6 PRN PRN Reason: Nausea/Vomiting Last Admin: 04/24/18 00:09 Dose: 4 mg Pantoprazole Sodium (Protonix Ec Tab) 40 mg PO DAILY [facility] Last Admin: 04/24/18 08:19 Dose: 40 mg Saccharomyces Boulardii (Florastor) 250 mg PO BID [facility] Last Admin: 04/24/18 08:16 Dose: 250 mg Senna/Docusate Sodium (Senokot S 50 Mg-8.6 Mg) 1 tab PO HS [facility] Last Admin: 04/23/18 21:53 Dose: 1 tab Simethicone (Mylicon Chew Tab) 80 mg PO QID PRN PRN Reason: Flatulence Last Admin: 04/23/18 14:03 Dose: 80 mg Tramadol HCl (Ultram) 50 mg PO TID PRN PRN Reason: Pain, moderate (4-7) Last Admin: 04/20/18 12:51 Dose: 50 mg - Labs Labs: 04/24/18 05:51 04/24/18 12:53 PT 15.7 Seconds (9.8-13.1) H 04/18/18 05:20 INR 1.4 (0.9-1.2) H 04/18/18 05:20 APTT 35.4 Seconds (25.6-37.1) 04/18/18 05:20
[2018-04-24] MEDS: Fluconazole IV 400mg/200ml NS 200 ML IVPB SCH (16:03)
--- NOTE | 2018-04-24 16:25 | CP.PCM.PN ---
Subjective - Date & Time of Evaluation Date of Evaluation: 04/24/18 Time of Evaluation: 16:21 - Subjective Subjective: General Surgery Progress Note - Dr. Montaño Patient seen and examined. No acute events overnight. Colostomy functioning well w/good output. IR drain removed yesterday. Patient admits to continued vaginal discharge. Reports minimal abdominal pain. Dressing c/d/i. Denies n/v/f/ d/c/sob. Objective - Vital Signs/Intake and Output Vital Signs (last 24 hours): Temp Pulse Resp BP Pulse Ox 97.7 F 90 20 109/55 L 98 04/24/18 08:44 04/24/18 12:45 04/24/18 08:44 04/24/18 12:45 04/24/18 08:44 - Medications Medications: Current Medications Acetaminophen (Tylenol 325mg Tab) 650 mg PO 0900,2100 [facility] Last Admin: 04/24/18 08:19 Dose: 650 mg Albuterol/Ipratropium (Duoneb 3 Mg/0.5 Mg (3 Ml) Ud) 3 ml INH RQID [facility] Last Admin: 04/24/18 15:53 Dose: 3 ml Atorvastatin Calcium (Lipitor) 40 mg PO QPM [facility] Last Admin: 04/23/18 17:45 Dose: 40 mg Diltiazem HCl (Cardizem) 30 mg PO QID [facility] Last Admin: 04/24/18 12:45 Dose: Not Given Enoxaparin Sodium (Lovenox) 40 mg SC DAILY [facility] PRN Reason: Protocol Last Admin: 04/24/18 08:16 Dose: 40 mg Fluconazole (Diflucan Iv 400mg/200ml Ns) 200 mls @ 100 mls/hr IVPB DAILY@1700 [facility] Last Admin: 04/24/18 16:03 Dose: 100 mls/hr Meropenem 1 gm/ Sodium (Chloride) 100 mls @ 100 mls/hr IVPB Q8H [facility] PRN Reason: Protocol Last Admin: 04/24/18 12:08 Dose: 100 mls/hr Insulin Human Lispro (Humalog) 0 units SC ACHS [facility] PRN Reason: Protocol Last Admin: 04/24/18 12:08 Dose: Not Given Losartan Potassium (Cozaar) 50 mg PO DAILY [facility] Last Admin: 04/24/18 08:17 Dose: 50 mg Olopatadine HCl (Patanol 0.1% Opht Soln) 1 drop OU DAILY [facility] Last Admin: 04/24/18 08:15 Dose: 1 drop Ondansetron HCl (Zofran Odt) 4 mg PO Q6 PRN PRN Reason: Nausea/Vomiting Last Admin: 04/24/18 00:09 Dose: 4 mg Pantoprazole Sodium (Protonix Ec Tab) 40 mg PO DAILY [facility] Last Admin: 04/24/18 08:19 Dose: 40 mg Saccharomyces Boulardii (Florastor) 250 mg PO BID [facility] Last Admin: 04/24/18 08:16 Dose: 250 mg Senna/Docusate Sodium (Senokot S 50 Mg-8.6 Mg) 1 tab PO HS [facility] Last Admin: 04/23/18 21:53 Dose: 1 tab Simethicone (Mylicon Chew Tab) 80 mg PO QID PRN PRN Reason: Flatulence Last Admin: 04/23/18 14:03 Dose: 80 mg Tramadol HCl (Ultram) 50 mg PO TID PRN PRN Reason: Pain, moderate (4-7) Last Admin: 04/20/18 12:51 Dose: 50 mg - Labs Labs: 04/24/18 05:51 04/24/18 12:53 PT 15.7 Seconds (9.8-13.1) H 04/18/18 05:20 INR 1.4 (0.9-1.2) H 04/18/18 05:20 APTT 35.4 Seconds (25.6-37.1) 04/18/18 05:20 - Constitutional Appears: Non-toxic, No Acute Distress - Head Exam Head Exam: ATRAUMATIC, NORMAL INSPECTION - Eye Exam Eye Exam: EOMI, Normal appearance Pupil Exam: NORMAL ACCOMODATION - ENT Exam ENT Exam: Mucous Membranes Moist - Neck Exam Neck Exam: Full ROM - Respiratory Exam Respiratory Exam: NORMAL BREATHING PATTERN. absent: Respiratory Distress - Cardiovascular Exam Cardiovascular Exam: REGULAR RHYTHM - GI/Abdominal Exam GI & Abdominal Exam: Soft, Tenderness. 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 Montaño
[2018-04-24] MEDS: Docusate-Senna 50 mg-8.6 mg Tab PO SCH (21:15)
[2018-04-25] MEDS: Meropenem 1 GM in Sodium Chloride 0.9% 100 ML IVPB SCH ×3 (04:22→21:11)
[2018-04-25] MEDS: Albuterol-Ipratrop 3 mg / 0.5 (3 ml) UD INH SCH ×4 (07:31→19:11)
[2018-04-25] MEDS: Insulin Lispro (humaLOG) 100 Units/ml Inj SC SCH ×4 (07:45→21:18)
[2018-04-25] MEDS: Enoxaparin 40 mg Syringe SC SCH (09:23)
[2018-04-25] MEDS: Olopatadine 0.1% Opht SOLN OU SCH (09:24)
[2018-04-25] MEDS: Saccharomyces Boulardi 250 mg Cap PO SCH ×2 (09:24→16:31)
[2018-04-25] MEDS: Pantoprazole 40 mg EC Tab PO SCH (09:29)
[2018-04-25] MEDS: Fluconazole IV 400mg/200ml NS 200 ML IVPB SCH (16:25)
[2018-04-25] MEDS: Docusate-Senna 50 mg-8.6 mg Tab PO SCH (21:12)
[2018-04-26] MEDS: Meropenem 1 GM in Sodium Chloride 0.9% 100 ML IVPB SCH ×3 (04:01→21:27)
[2018-04-26] MEDS: Insulin Lispro (humaLOG) 100 Units/ml Inj SC SCH ×4 (06:29→21:26)
[2018-04-26] MEDS: Albuterol-Ipratrop 3 mg / 0.5 (3 ml) UD INH SCH ×4 (07:19→19:26)
[2018-04-26] MEDS: Enoxaparin 40 mg Syringe SC SCH (10:41)
[2018-04-26] MEDS: Saccharomyces Boulardi 250 mg Cap PO SCH ×2 (10:41→18:33)
[2018-04-26] MEDS: Olopatadine 0.1% Opht SOLN OU SCH (10:41)
[2018-04-26] MEDS: Pantoprazole 40 mg EC Tab PO SCH (10:50)
[2018-04-26] MEDS: Simethicone 80 mg Chewtab PO PRN (10:50)
--- NOTE | 2018-04-26 13:48 | CP.PCM.PN ---
Subjective - Date & Time of Evaluation Date of Evaluation: 04/26/18 Time of Evaluation: 09:00 - Subjective Subjective: Colostomy functioning well w/good output. IR drain removed yesterday. Patient admits to continued vaginal discharge. Reports minimal abdominal pain. Dressing c/d/i. Denies n/v/f/d/c/sob. Objective - Vital Signs/Intake and Output Vital Signs (last 24 hours): Temp Pulse Resp BP Pulse Ox 97.7 F 84 20 135/73 100 04/25/18 20:00 04/26/18 10:40 04/25/18 21:12 04/26/18 10:40 04/25/18 21:12 - Medications Medications: Current Medications Acetaminophen (Tylenol 325mg Tab) 650 mg PO 0900,2099 [facility] Last Admin: 04/26/18 10:50 Dose: 650 mg Albuterol/Ipratropium (Duoneb 3 Mg/0.5 Mg (3 Ml) Ud) 3 ml INH RQID [facility] Last Admin: 04/26/18 11:15 Dose: 3 ml Atorvastatin Calcium (Lipitor) 40 mg PO 2100 [facility] Last Admin: 04/25/18 21:12 Dose: 40 mg Diltiazem HCl (Cardizem) 30 mg PO QID [facility] Last Admin: 04/26/18 10:39 Dose: 30 mg Enoxaparin Sodium (Lovenox) 40 mg SC DAILY [facility] PRN Reason: Protocol Last Admin: 04/26/18 10:41 Dose: 40 mg Fluconazole (Diflucan Iv 400mg/200ml Ns) 200 mls @ 100 mls/hr IVPB DAILY@1700 [facility] Last Admin: 04/25/18 16:25 Dose: 100 mls/hr Meropenem 1 gm/ Sodium (Chloride) 100 mls @ 100 mls/hr IVPB Q8H [facility] PRN Reason: Protocol Last Admin: 04/26/18 11:51 Dose: 100 mls/hr Insulin Human Lispro (Humalog) 0 units SC ACHS [facility] PRN Reason: Protocol Last Admin: 04/26/18 11:51 Dose: Not Given Losartan Potassium (Cozaar) 50 mg PO DAILY [facility] Last Admin: 04/26/18 10:40 Dose: 50 mg Olopatadine HCl (Patanol 0.1% Opht Soln) 1 drop OU DAILY [facility] Last Admin: 04/26/18 10:41 Dose: 1 drop Ondansetron HCl (Zofran Odt) 4 mg PO Q6 PRN PRN Reason: Nausea/Vomiting Last Admin: 04/25/18 09:24 Dose: 4 mg Pantoprazole Sodium (Protonix Ec Tab) 40 mg PO DAILY [facility] Last Admin: 04/26/18 10:50 Dose: 40 mg Saccharomyces Boulardii (Florastor) 250 mg PO BID [facility] Last Admin: 04/26/18 10:41 Dose: 250 mg Senna/Docusate Sodium (Senokot S 50 Mg-8.6 Mg) 1 tab PO HS [facility] Last Admin: 04/25/18 21:12 Dose: 1 tab Simethicone (Mylicon Chew Tab) 80 mg PO QID PRN PRN Reason: Flatulence Last Admin: 04/26/18 10:50 Dose: 80 mg Tramadol HCl (Ultram) 50 mg PO TID PRN PRN Reason: Pain, moderate (4-7) Last Admin: 04/20/18 12:51 Dose: 50 mg - Labs Labs: 04/24/18 05:51 04/24/18 12:53 PT 15.7 Seconds (9.8-13.1) H 04/18/18 05:20 INR 1.4 (0.9-1.2) H 04/18/18 05:20 APTT 35.4 Seconds (25.6-37.1) 04/18/18 05:20 - Constitutional Appears: Chronically Ill - Head Exam Head Exam: ATRAUMATIC - Eye Exam Eye Exam: PERRL - ENT Exam ENT Exam: Mucous Membranes Dry - Neck Exam Neck Exam: absent: Lymphadenopathy - Respiratory Exam Respiratory Exam: Decreased Breath Sounds - Cardiovascular Exam Cardiovascular Exam: REGULAR RHYTHM - GI/Abdominal Exam GI & Abdominal Exam: Distended - Rectal Exam Rectal Exam: Deferred - Exam Exam: NORMAL INSPECTION - Extremities Exam Extremities Exam: absent: Pedal Edema - Back Exam Back Exam: absent: CVA tenderness (L), CVA tenderness (R) - Neurological Exam Neurological Exam: Alert, Awake, Oriented x3 - Psychiatric Exam Psychiatric exam: Normal Mood Assessment and Plan (1) Abdominal wall abscess at site of surgical wound Status: Acute (2) ESBL (extended spectrum beta-lactamase) producing bacteria infection Status: Acute (3) History of ESBL E. coli infection Status: Acute - Assessment and Plan (Free Text) Assessment: consider imaging iv rx reordered
[2018-04-26] MEDS: Fluconazole IV 400mg/200ml NS 200 ML IVPB SCH (18:31)
[2018-04-26] MEDS: Docusate-Senna 50 mg-8.6 mg Tab PO SCH (21:27)
[2018-04-27] MEDS: Meropenem 1 GM in Sodium Chloride 0.9% 100 ML IVPB SCH ×3 (04:22→20:30)
[2018-04-27] MEDS: Insulin Lispro (humaLOG) 100 Units/ml Inj SC SCH ×4 (06:58→21:43)
[2018-04-27] MEDS: Albuterol-Ipratrop 3 mg / 0.5 (3 ml) UD INH SCH ×4 (07:31→19:04)
[2018-04-27] MEDS: Enoxaparin 40 mg Syringe SC SCH (09:31)
[2018-04-27] MEDS: Olopatadine 0.1% Opht SOLN OU SCH (09:31)
[2018-04-27] MEDS: Saccharomyces Boulardi 250 mg Cap PO SCH ×2 (09:32→16:17)
--- NOTE | 2018-04-27 10:35 | CP.PCM.PN ---
Subjective - Date & Time of Evaluation Date of Evaluation: 04/27/18 Time of Evaluation: 11:00 - Subjective Subjective: Patient was seen ambulating in the hallway with physical therapist using a walker. Her spirits are good. Her vital signs remained stable. She continues to be afebrile. Her appetite is fair. Her colostomy is functioning. She continues to have some vaginal drainage. Not complaining of abdominal pain. Discussed case with surgical attending this morning and no aggressive intervention is contemplated at this time. The plan will be to continue antibiotic therapy and discharge to long-term rehabilitation and monitor her clinically. Her current clinical condition does not allow for elective surgical intervention without high risk. If her clinical condition deteriorates, then a surgical reevaluation would be indicated. Objective - Vital Signs/Intake and Output Vital Signs (last 24 hours): Temp Pulse Resp BP Pulse Ox 97.7 F 95 H 20 125/58 L 99 04/27/18 09:00 04/27/18 09:31 04/27/18 09:00 04/27/18 09:31 04/27/18 09:00 - Medications Medications: Current Medications Acetaminophen (Tylenol 325mg Tab) 650 mg PO 0900,2100 [facility] Last Admin: 04/27/18 09:35 Dose: 650 mg Albuterol/Ipratropium (Duoneb 3 Mg/0.5 Mg (3 Ml) Ud) 3 ml INH RQID [facility] Last Admin: 04/27/18 07:31 Dose: 3 ml Atorvastatin Calcium (Lipitor) 40 mg PO 2100 [facility] Last Admin: 04/26/18 21:27 Dose: 40 mg Diltiazem HCl (Cardizem) 30 mg PO QID [facility] Last Admin: 04/27/18 09:30 Dose: 30 mg Enoxaparin Sodium (Lovenox) 40 mg SC DAILY [facility] PRN Reason: Protocol Last Admin: 04/27/18 09:31 Dose: 40 mg Fluconazole (Diflucan Iv 400mg/200ml Ns) 200 mls @ 100 mls/hr IVPB DAILY@1700 [facility] Last Admin: 04/26/18 18:31 Dose: 100 mls/hr Meropenem 1 gm/ Sodium (Chloride) 100 mls @ 100 mls/hr IVPB Q8H [facility] PRN Reason: Protocol Last Admin: 04/27/18 04:22 Dose: 100 mls/hr Insulin Human Lispro (Humalog) 0 units SC ACHS [facility] PRN Reason: Protocol Last Admin: 04/27/18 06:58 Dose: Not Given Losartan Potassium (Cozaar) 50 mg PO DAILY [facility] Last Admin: 04/27/18 09:31 Dose: 50 mg Olopatadine HCl (Patanol 0.1% Opht Soln) 1 drop OU DAILY [facility] Last Admin: 04/27/18 09:31 Dose: 1 drop Ondansetron HCl (Zofran Odt) 4 mg PO Q6 PRN PRN Reason: Nausea/Vomiting Last Admin: 04/25/18 09:24 Dose: 4 mg Pantoprazole Sodium (Protonix Ec Tab) 40 mg PO DAILY [facility] Last Admin: 04/26/18 10:50 Dose: 40 mg Saccharomyces Boulardii (Florastor) 250 mg PO BID [facility] Last Admin: 04/27/18 09:32 Dose: 250 mg Senna/Docusate Sodium (Senokot S 50 Mg-8.6 Mg) 1 tab PO HS [facility] Last Admin: 04/26/18 21:27 Dose: 1 tab Simethicone (Mylicon Chew Tab) 80 mg PO QID PRN PRN Reason: Flatulence Last Admin: 04/26/18 10:50 Dose: 80 mg Tramadol HCl (Ultram) 50 mg PO TID PRN PRN Reason: Pain, moderate (4-7) Last Admin: 04/20/18 12:51 Dose: 50 mg - Labs Labs: 04/24/18 05:51 04/24/18 12:53 PT 15.7 Seconds (9.8-13.1) H 04/18/18 05:20 INR 1.4 (0.9-1.2) H 04/18/18 05:20 APTT 35.4 Seconds (25.6-37.1) 04/18/18 05:20 Assessment and Plan (1) Pelvic abscess Status: Acute (2) Anemia Status: Chronic (3) COPD (chronic obstructive pulmonary disease) Status: Chronic (4) BAR (obstructive sleep apnea) Status: Inactive
[2018-04-27] MEDS: Pantoprazole 40 mg EC Tab PO SCH (10:40)
--- NOTE | 2018-04-27 11:32 | CP.PCM.PN ---
Subjective - Date & Time of Evaluation Date of Evaluation: 04/27/18 Time of Evaluation: 07:15 - Subjective Subjective: Surgery Progress note. Dr. Montaño. Pt seen and examined at bedside. No acute events overnight. No N/V/D. Tolerating diet. No new complaints. Objective - Vital Signs/Intake and Output Vital Signs (last 24 hours): Temp Pulse Resp BP Pulse Ox 97.7 F 95 H 20 125/58 L 99 04/27/18 09:00 04/27/18 09:31 04/27/18 09:00 04/27/18 09:31 04/27/18 09:00 - Medications Medications: Current Medications Acetaminophen (Tylenol 325mg Tab) 650 mg PO 0900,2100 [facility] Last Admin: 04/27/18 09:35 Dose: 650 mg Albuterol/Ipratropium (Duoneb 3 Mg/0.5 Mg (3 Ml) Ud) 3 ml INH RQID [facility] Last Admin: 04/27/18 11:26 Dose: 3 ml Atorvastatin Calcium (Lipitor) 40 mg PO 2100 [facility] Last Admin: 04/26/18 21:27 Dose: 40 mg Diltiazem HCl (Cardizem) 30 mg PO QID [facility] Last Admin: 04/27/18 09:30 Dose: 30 mg Enoxaparin Sodium (Lovenox) 40 mg SC DAILY [facility] PRN Reason: Protocol Last Admin: 04/27/18 09:31 Dose: 40 mg Fluconazole (Diflucan Iv 400mg/200ml Ns) 200 mls @ 100 mls/hr IVPB DAILY@1700 [facility] Last Admin: 04/26/18 18:31 Dose: 100 mls/hr Meropenem 1 gm/ Sodium (Chloride) 100 mls @ 100 mls/hr IVPB Q8H [facility] PRN Reason: Protocol Last Admin: 04/27/18 04:22 Dose: 100 mls/hr Insulin Human Lispro (Humalog) 0 units SC ACHS [facility] PRN Reason: Protocol Last Admin: 04/27/18 06:58 Dose: Not Given Losartan Potassium (Cozaar) 50 mg PO DAILY [facility] Last Admin: 04/27/18 09:31 Dose: 50 mg Olopatadine HCl (Patanol 0.1% Opht Soln) 1 drop OU DAILY [facility] Last Admin: 04/27/18 09:31 Dose: 1 drop Ondansetron HCl (Zofran Odt) 4 mg PO Q6 PRN PRN Reason: Nausea/Vomiting Last Admin: 04/25/18 09:24 Dose: 4 mg Pantoprazole Sodium (Protonix Ec Tab) 40 mg PO DAILY [facility] Last Admin: 04/27/18 10:40 Dose: 40 mg Saccharomyces Boulardii (Florastor) 250 mg PO BID [facility] Last Admin: 04/27/18 09:32 Dose: 250 mg Senna/Docusate Sodium (Senokot S 50 Mg-8.6 Mg) 1 tab PO HS [facility] Last Admin: 04/26/18 21:27 Dose: 1 tab Simethicone (Mylicon Chew Tab) 80 mg PO QID PRN PRN Reason: Flatulence Last Admin: 04/26/18 10:50 Dose: 80 mg Tramadol HCl (Ultram) 50 mg PO TID PRN PRN Reason: Pain, moderate (4-7) Last Admin: 04/20/18 12:51 Dose: 50 mg - Labs Labs: 04/24/18 05:51 04/24/18 12:53 PT 15.7 Seconds (9.8-13.1) H 04/18/18 05:20 INR 1.4 (0.9-1.2) H 04/18/18 05:20 APTT 35.4 Seconds (25.6-37.1) 04/18/18 05:20 - Constitutional Appears: Well, Non-toxic, No Acute Distress - Head Exam Head Exam: ATRAUMATIC, NORMAL INSPECTION, NORMOCEPHALIC - Eye Exam Eye Exam: EOMI - ENT Exam ENT Exam: Mucous Membranes Moist - Neck Exam Neck Exam: Full ROM - Respiratory Exam Respiratory Exam: NORMAL BREATHING PATTERN. absent: Accessory Muscle Use, Respiratory Distress - GI/Abdominal Exam GI & Abdominal Exam: Soft. absent: Distended, Firm, Guarding, Rebound Additional comments: Ostomy appliance in place. Midline dressing replaced, clean, dry and intact. Previous R sided IR drain site well healed. Small approximately 2cm x 1cm area of redness infraumbilically, with no fluctuance or induration noted; healing well. - Extremities Exam Extremities Exam: Normal Inspection. absent: Calf Tenderness - Neurological Exam Neurological Exam: Alert, Awake, Oriented x3 Assessment and Plan - Assessment and Plan (Free Text) Assessment: 87yo F w/ intra-abdominal abscess, rectal stump and vaginal fistula Plan: - Abdominal dressing changed. Continue prn changes - Continue warm compresses - Continue abx - Diet as tolerated - Pain management Further recs as per Dr. Danyel Espinoza PGY1 surgery pager: [phone]
[2018-04-27] MEDS: Fluconazole IV 400mg/200ml NS 200 ML IVPB SCH (16:01)
--- NOTE | 2018-04-27 21:31 | PN ---
DATE: 04/27/2018 Seen on the floor on Friday. She is very weak and tired and not gaining much rehab. She is eating and pooping into the colostomy. I do not think she is an operative candidate. My feeling is that there is an abscess in the pelvis that is controlled at the moment, but my feeling is it is going to recur. Ordinarily, operative intervention would be the way to go, but I do not think she would tolerate very much a repeat operation. If this would recur, we would drain it again, but probably the drains seem longer. Continue to follow her. Peter Montaño MD
[2018-04-27] MEDS: Proshield Plus GEL TOP SCH (21:44)
[2018-04-27] MEDS: Docusate-Senna 50 mg-8.6 mg Tab PO SCH (21:45)
[2018-04-28] MEDS: Meropenem 1 GM in Sodium Chloride 0.9% 100 ML IVPB SCH ×3 (04:50→20:45)
[2018-04-28] MEDS: Insulin Lispro (humaLOG) 100 Units/ml Inj SC SCH ×4 (06:51→22:00)
[2018-04-28] MEDS: Enoxaparin 40 mg Syringe SC SCH (08:00)
[2018-04-28] MEDS: Saccharomyces Boulardi 250 mg Cap PO SCH ×2 (08:01→17:03)
[2018-04-28] MEDS: Pantoprazole 40 mg EC Tab PO SCH (08:01)
[2018-04-28] MEDS: Olopatadine 0.1% Opht SOLN OU SCH (08:02)
[2018-04-28] MEDS: Proshield Plus GEL TOP SCH ×2 (08:02→21:30)
[2018-04-28] MEDS: Albuterol-Ipratrop 3 mg / 0.5 (3 ml) UD INH SCH ×4 (08:12→19:28)
--- NOTE | 2018-04-28 09:38 | CP.PCM.PN ---
Subjective - Date & Time of Evaluation Date of Evaluation: 04/28/18 Time of Evaluation: 09:37 - Subjective Subjective: Seen on morning rounds, presently lying in bed. She had been observed sitting up in the wheelchair earlier in the morning. She has been complaining of some discomfort in the buttock area and there is mention of moisture associated dermatitis by the nursing staff. Her vital signs appear to be stable and she continues to be afebrile. She does continue to have some small amount of vaginal discharge. Her colostomy is functioning well at this time. She is not complaining of abdominal pelvic pain presently. Surgical note from yesterday was reviewed. The plan will remain unchanged with long-term antibiotic and evaluation of her clinical status. Objective - Vital Signs/Intake and Output Vital Signs (last 24 hours): Temp Pulse Resp BP Pulse Ox 97.9 F 78 20 140/79 98 04/28/18 09:11 04/28/18 09:11 04/28/18 09:11 04/28/18 09:11 04/28/18 09:11 - Medications Medications: Current Medications Acetaminophen (Tylenol 325mg Tab) 650 mg PO 0900,2100 [facility] Last Admin: 04/28/18 08:00 Dose: 650 mg Albuterol/Ipratropium (Duoneb 3 Mg/0.5 Mg (3 Ml) Ud) 3 ml INH RQID [facility] Last Admin: 04/28/18 08:12 Dose: 3 ml Atorvastatin Calcium (Lipitor) 40 mg PO 2100 [facility] Last Admin: 04/27/18 21:44 Dose: 40 mg Diltiazem HCl (Cardizem) 30 mg PO QID [facility] Last Admin: 04/28/18 08:01 Dose: 30 mg Dimethicone (Proshield Plus Skin Protectant) 1 applic TOP Q12 [facility] Last Admin: 04/28/18 08:02 Dose: 1 applic Enoxaparin Sodium (Lovenox) 40 mg SC DAILY [facility] PRN Reason: Protocol Last Admin: 04/28/18 08:00 Dose: 40 mg Fluconazole (Diflucan Iv 400mg/200ml Ns) 200 mls @ 100 mls/hr IVPB DAILY@1700 [facility] Last Admin: 04/27/18 16:01 Dose: 100 mls/hr Meropenem 1 gm/ Sodium (Chloride) 100 mls @ 100 mls/hr IVPB Q8H [facility] PRN Reason: Protocol Last Admin: 04/28/18 04:50 Dose: 100 mls/hr Insulin Human Lispro (Humalog) 0 units SC ACHS [facility] PRN Reason: Protocol Last Admin: 04/28/18 06:51 Dose: Not Given Losartan Potassium (Cozaar) 50 mg PO DAILY [facility] Last Admin: 04/28/18 08:01 Dose: 50 mg Olopatadine HCl (Patanol 0.1% Opht Soln) 1 drop OU DAILY [facility] Last Admin: 04/28/18 08:02 Dose: 1 drop Ondansetron HCl (Zofran Odt) 4 mg PO Q6 PRN PRN Reason: Nausea/Vomiting Last Admin: 04/25/18 09:24 Dose: 4 mg Pantoprazole Sodium (Protonix Ec Tab) 40 mg PO DAILY [facility] Last Admin: 04/28/18 08:01 Dose: 40 mg Saccharomyces Boulardii (Florastor) 250 mg PO BID [facility] Last Admin: 04/28/18 08:01 Dose: 250 mg Senna/Docusate Sodium (Senokot S 50 Mg-8.6 Mg) 1 tab PO HS [facility] Last Admin: 04/27/18 21:45 Dose: 1 tab Simethicone (Mylicon Chew Tab) 80 mg PO QID PRN PRN Reason: Flatulence Last Admin: 04/26/18 10:50 Dose: 80 mg Tramadol HCl (Ultram) 50 mg PO TID PRN PRN Reason: Pain, moderate (4-7) Last Admin: 04/20/18 12:51 Dose: 50 mg - Labs Labs: 04/24/18 05:51 04/24/18 12:53 PT 15.7 Seconds (9.8-13.1) H 04/18/18 05:20 INR 1.4 (0.9-1.2) H 04/18/18 05:20 APTT 35.4 Seconds (25.6-37.1) 04/18/18 05:20 Assessment and Plan (1) Pelvic abscess Status: Acute (2) Anemia Status: Chronic (3) COPD (chronic obstructive pulmonary disease) Status: Chronic
--- NOTE | 2018-04-28 13:32 | CP.PCM.PN ---
Subjective - Date & Time of Evaluation Date of Evaluation: 04/28/18 Time of Evaluation: 10:30 - Subjective Subjective: Patient seen and examined. Complained of leakage and pruritus from her vagina. Objective - Vital Signs/Intake and Output Vital Signs (last 24 hours): Temp Pulse Resp BP Pulse Ox 97.9 F 78 20 103/67 98 04/28/18 09:11 04/28/18 09:11 04/28/18 09:11 04/28/18 12:06 04/28/18 09:11 - Medications Medications: Current Medications Acetaminophen (Tylenol 325mg Tab) 650 mg PO 0900,2099 [facility] Last Admin: 04/28/18 08:00 Dose: 650 mg Albuterol/Ipratropium (Duoneb 3 Mg/0.5 Mg (3 Ml) Ud) 3 ml INH RQID [facility] Last Admin: 04/28/18 12:09 Dose: 3 ml Atorvastatin Calcium (Lipitor) 40 mg PO 2099 [facility] Last Admin: 04/27/18 21:44 Dose: 40 mg Diltiazem HCl (Cardizem) 30 mg PO QID [facility] Last Admin: 04/28/18 12:06 Dose: Not Given Dimethicone (Proshield Plus Skin Protectant) 1 applic TOP Q12 [facility] Last Admin: 04/28/18 08:02 Dose: 1 applic Enoxaparin Sodium (Lovenox) 40 mg SC DAILY [facility] PRN Reason: Protocol Last Admin: 04/28/18 08:00 Dose: 40 mg Fluconazole (Diflucan Iv 400mg/200ml Ns) 200 mls @ 100 mls/hr IVPB DAILY@1700 [facility] Last Admin: 04/27/18 16:01 Dose: 100 mls/hr Meropenem 1 gm/ Sodium (Chloride) 100 mls @ 100 mls/hr IVPB Q8H [facility] PRN Reason: Protocol Last Admin: 04/28/18 12:00 Dose: 100 mls/hr Insulin Human Lispro (Humalog) 0 units SC ACHS [facility] PRN Reason: Protocol Last Admin: 04/28/18 11:33 Dose: Not Given Losartan Potassium (Cozaar) 50 mg PO DAILY [facility] Last Admin: 04/28/18 08:01 Dose: 50 mg Olopatadine HCl (Patanol 0.1% Opht Soln) 1 drop OU DAILY [facility] Last Admin: 04/28/18 08:02 Dose: 1 drop Ondansetron HCl (Zofran Odt) 4 mg PO Q6 PRN PRN Reason: Nausea/Vomiting Last Admin: 04/25/18 09:24 Dose: 4 mg Pantoprazole Sodium (Protonix Ec Tab) 40 mg PO DAILY [facility] Last Admin: 04/28/18 08:01 Dose: 40 mg Saccharomyces Boulardii (Florastor) 250 mg PO BID [facility] Last Admin: 04/28/18 08:01 Dose: 250 mg Senna/Docusate Sodium (Senokot S 50 Mg-8.6 Mg) 1 tab PO HS [facility] Last Admin: 04/27/18 21:45 Dose: 1 tab Simethicone (Mylicon Chew Tab) 80 mg PO QID PRN PRN Reason: Flatulence Last Admin: 04/26/18 10:50 Dose: 80 mg Tramadol HCl (Ultram) 50 mg PO TID PRN PRN Reason: Pain, moderate (4-7) Last Admin: 04/20/18 12:51 Dose: 50 mg - Labs Labs: 04/24/18 05:51 04/24/18 12:53 PT 15.7 Seconds (9.8-13.1) H 04/18/18 05:20 INR 1.4 (0.9-1.2) H 04/18/18 05:20 APTT 35.4 Seconds (25.6-37.1) 04/18/18 05:20 - Constitutional Appears: No Acute Distress - Head Exam Head Exam: ATRAUMATIC - Eye Exam Eye Exam: absent: Scleral icterus - ENT Exam ENT Exam: Mucous Membranes Moist - Neck Exam Neck Exam: absent: Meningismus - Respiratory Exam Respiratory Exam: absent: Rales, Rhonchi, Wheezes, Respiratory Distress - Cardiovascular Exam Cardiovascular Exam: REGULAR RHYTHM, +S1, +S2 - GI/Abdominal Exam GI & Abdominal Exam: Soft. absent: Tenderness - Rectal Exam Rectal Exam: Deferred - Neurological Exam Neurological Exam: Alert, Oriented x3 - Psychiatric Exam Psychiatric exam: Normal Affect - Skin Skin Exam: Dry, Intact Assessment and Plan - Assessment and Plan (Free Text) Assessment: 87 yo female with history of CHF, COPD, AFib, HTN, DM2 and Hypothyroidism had colon resection with colostomy on 02/25/2018 after perforating colon during colonoscopy. Post op days were uneventful and patient was discharged in stable condition 8 days later. A month later patient was brought back because of abdominal pain associated with purulent discharge from the surgical wound. CT scan of abdomen showed large pelvic abscess. Patient was started on IV antibiotics and IR drained the abscess followed with wound vac placement. Repeat CT scan showed reduced pelvic abscess and new recto-vaginal fistula. Patient was transferred to TCU for continuation of IV antibiotic and therapy. 1. 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 Diabetes mellitus, type II BS controlled continue accuchek ACHS with Lispro coverage 3. CHF, diastolic dysfunction continue Losartan 4. Atrial fibrillation rate controlled continue Cardizem 5. COPD asymptomatic on Duoneb and Pulmicort 6. Hypertension BP stable continue Cardizem and Losartan 7. Hypothyroidism continue Levothyroxine 8. DVT prophylaxis continue Lovenox
[2018-04-28] MEDS: Fluconazole IV 400mg/200ml NS 200 ML IVPB SCH (17:04)
[2018-04-28] MEDS: Docusate-Senna 50 mg-8.6 mg Tab PO SCH (21:31)
[2018-04-29] MEDS: Meropenem 1 GM in Sodium Chloride 0.9% 100 ML IVPB SCH ×2 (04:35→11:58)
[2018-04-29] MEDS: Insulin Lispro (humaLOG) 100 Units/ml Inj SC SCH ×4 (06:35→22:00)
[2018-04-29 06:48] LABS: HEMOGLOBIN 10.8 g/dL (12.0-16.0); MEAN CELL VOLUME 90.8 fl (81.0-99.0); MEAN CORPUSCULAR HEMOGLOBIN 29.7 pg (27.0-31.0); MEAN CORPUSCULAR HGB CONC 32.7 g/dL (33.0-37.0); RBC 3.62 Mil/uL (3.80-5.20); WHITE BLOOD COUNT 8.2 K/uL (4.8-10.8)
[2018-04-29 07:15] LABS: BLOOD UREA NITROGEN 7 mg/dl (7-17); CALCIUM 8.1 mg/dL (8.4-10.2); GFR AFRICAN-AMERICAN > 60; GFR NON-AFRICAN AMERICAN > 60
[2018-04-29] MEDS: Albuterol-Ipratrop 3 mg / 0.5 (3 ml) UD INH SCH ×4 (07:31→19:25)
[2018-04-29] MEDS: Enoxaparin 40 mg Syringe SC SCH (08:49)
[2018-04-29] MEDS: Saccharomyces Boulardi 250 mg Cap PO SCH ×2 (08:49→17:32)
[2018-04-29] MEDS: Olopatadine 0.1% Opht SOLN OU SCH (08:54)
[2018-04-29] MEDS: Proshield Plus GEL TOP SCH ×2 (08:54→22:00)
[2018-04-29] MEDS: Pantoprazole 40 mg EC Tab PO SCH (08:55)
--- NOTE | 2018-04-29 11:39 | CP.PCM.PN ---
Subjective - Date & Time of Evaluation Date of Evaluation: 04/29/18 Time of Evaluation: 09:00 - Subjective Subjective: still has leakage and itching diflucan renewed cont iv rx and surgical follow up Objective - Vital Signs/Intake and Output Vital Signs (last 24 hours): Temp Pulse Resp BP Pulse Ox 97.9 F 77 20 133/75 99 04/29/18 08:11 04/29/18 08:49 04/29/18 08:11 04/29/18 08:49 04/29/18 08:11 - Medications Medications: Current Medications Acetaminophen (Tylenol 325mg Tab) 650 mg PO 0900,2099 [facility] Last Admin: 04/29/18 08:47 Dose: 650 mg Albuterol/Ipratropium (Duoneb 3 Mg/0.5 Mg (3 Ml) Ud) 3 ml INH RQID [facility] Last Admin: 04/29/18 11:01 Dose: 3 ml Atorvastatin Calcium (Lipitor) 40 mg PO 2100 [facility] Last Admin: 04/28/18 21:31 Dose: 40 mg Diltiazem HCl (Cardizem) 30 mg PO QID [facility] Last Admin: 04/29/18 08:48 Dose: 30 mg Dimethicone (Proshield Plus Skin Protectant) 1 applic TOP Q12 [facility] Last Admin: 04/29/18 08:54 Dose: 1 applic Enoxaparin Sodium (Lovenox) 40 mg SC DAILY [facility] PRN Reason: Protocol Last Admin: 04/29/18 08:49 Dose: 40 mg Meropenem 1 gm/ Sodium (Chloride) 100 mls @ 100 mls/hr IVPB Q8H [facility] PRN Reason: Protocol Last Admin: 04/29/18 04:35 Dose: 100 mls/hr Insulin Human Lispro (Humalog) 0 units SC ACHS [facility] PRN Reason: Protocol Last Admin: 04/29/18 06:35 Dose: Not Given Losartan Potassium (Cozaar) 50 mg PO DAILY [facility] Last Admin: 04/29/18 08:49 Dose: 50 mg Olopatadine HCl (Patanol 0.1% Opht Soln) 1 drop OU DAILY [facility] Last Admin: 04/29/18 08:54 Dose: 1 drop Ondansetron HCl (Zofran Odt) 4 mg PO Q6 PRN PRN Reason: Nausea/Vomiting Last Admin: 04/25/18 09:24 Dose: 4 mg Pantoprazole Sodium (Protonix Ec Tab) 40 mg PO DAILY [facility] Last Admin: 04/29/18 08:55 Dose: 40 mg Saccharomyces Boulardii (Florastor) 250 mg PO BID [facility] Last Admin: 04/29/18 08:49 Dose: 250 mg Senna/Docusate Sodium (Senokot S 50 Mg-8.6 Mg) 1 tab PO HS [facility] Last Admin: 04/28/18 21:31 Dose: 1 tab Simethicone (Mylicon Chew Tab) 80 mg PO QID PRN PRN Reason: Flatulence Last Admin: 04/26/18 10:50 Dose: 80 mg - Labs Labs: 04/29/18 05:45 04/29/18 05:45 PT 15.7 Seconds (9.8-13.1) H 04/18/18 05:20 INR 1.4 (0.9-1.2) H 04/18/18 05:20 APTT 35.4 Seconds (25.6-37.1) 04/18/18 05:20 - Constitutional Appears: Non-toxic, Chronically Ill - Head Exam Head Exam: NORMOCEPHALIC - Eye Exam Eye Exam: absent: Scleral icterus - ENT Exam ENT Exam: Mucous Membranes Dry - Neck Exam Neck Exam: absent: Lymphadenopathy - Respiratory Exam Respiratory Exam: Decreased Breath Sounds - Cardiovascular Exam Cardiovascular Exam: REGULAR RHYTHM - GI/Abdominal Exam GI & Abdominal Exam: Distended, Soft - Rectal Exam Rectal Exam: Deferred - Exam Exam: NORMAL INSPECTION - Extremities Exam Extremities Exam: absent: Pedal Edema - Back Exam Back Exam: absent: CVA tenderness (L), CVA tenderness (R) - Neurological Exam Neurological Exam: Alert, Awake, Oriented x3 - Psychiatric Exam Psychiatric exam: Depressed - Skin Skin Exam: Dry Assessment and Plan (1) Abdominal wall abscess at site of surgical wound Status: Acute (2) ESBL (extended spectrum beta-lactamase) producing bacteria infection Status: Acute (3) History of ESBL E. coli infection Status: Acute
[2018-04-29] MEDS ORDERED: Fluconazole IV 200mg/100 ml NS 100 ML IVPB SCH (11:45)
[2018-04-29] MEDS ORDERED: Iohexol 240 (50 ml) PO ONE (15:42)
[2018-04-29] MEDS: Fluconazole IV 200mg/100 ml NS 100 ML IVPB SCH (17:19)
[2018-04-29] MEDS: Docusate-Senna 50 mg-8.6 mg Tab PO SCH (21:57)
[2018-04-30] MEDS: Albuterol-Ipratrop 3 mg / 0.5 (3 ml) UD INH SCH ×5 (07:25→19:18)
[2018-04-30] MEDS: Insulin Lispro (humaLOG) 100 Units/ml Inj SC SCH ×4 (07:28→22:10)
[2018-04-30] MEDS: Saccharomyces Boulardi 250 mg Cap PO SCH ×2 (08:16→16:35)
[2018-04-30] MEDS: Pantoprazole 40 mg EC Tab PO SCH (08:18)
[2018-04-30] MEDS: Olopatadine 0.1% Opht SOLN OU SCH (08:19)
[2018-04-30] MEDS: Proshield Plus GEL TOP SCH ×2 (08:22→22:18)
[2018-04-30] MEDS ORDERED: Meropenem 1 GM in Sodium Chloride 0.9% 100 ML IVPB SCH (10:15)
--- NOTE | 2018-04-30 11:27 | CP.PCM.PN ---
Subjective - Date & Time of Evaluation Date of Evaluation: 04/30/18 Time of Evaluation: 11:27 - Subjective Subjective: The patient was seen on rounds this morning seated in a wheelchair in the hallway participating with physical therapy. Her mood is good and she is not complaining of any pain. She does complain of some itching in the perivaginal region for the past day or 2. Minimal amount of vaginal drainage is noted by the nursing staff. CT scan of the abdomen and pelvis was reviewed today and it shows some residual abscess cavity which is smaller in size as well as some residual infiltrate in the left lung base in the area of the prior atelectasis and pleural effusion. Her colostomy is functioning well at this time and her appetite appears to be improving. Overall she appears to be getting stronger on the current regimen and it is unlikely that any surgical intervention will occur at this time. Surgery will review the findings of the CT scan and make their decision. Objective - Vital Signs/Intake and Output Vital Signs (last 24 hours): Temp Pulse Resp BP Pulse Ox 98.2 F 106 H 20 127/75 96 04/30/18 08:00 04/30/18 08:17 04/30/18 08:17 04/30/18 08:17 04/30/18 08:00 - Medications Medications: Current Medications Acetaminophen (Tylenol 325mg Tab) 650 mg PO 0900,2100 [facility] Last Admin: 04/30/18 08:18 Dose: 650 mg Albuterol/Ipratropium (Duoneb 3 Mg/0.5 Mg (3 Ml) Ud) 3 ml INH RQID [facility] Last Admin: 04/30/18 07:25 Dose: 3 ml Atorvastatin Calcium (Lipitor) 40 mg PO 2100 [facility] Last Admin: 04/29/18 21:57 Dose: 40 mg Diltiazem HCl (Cardizem) 30 mg PO QID [facility] Last Admin: 04/30/18 08:17 Dose: 30 mg Dimethicone (Proshield Plus Skin Protectant) 1 applic TOP Q12 [facility] Last Admin: 04/30/18 08:22 Dose: 1 applic Enoxaparin Sodium (Lovenox) 40 mg SC DAILY [facility] PRN Reason: Protocol Fluconazole (Diflucan Iv 200 Mg/100 Ml Ns) 100 mls @ 100 mls/hr IVPB DAILY@ 1700 [facility] PRN Reason: Protocol Last Admin: 04/29/18 17:19 Dose: 100 mls/hr Meropenem 1 gm/ Sodium (Chloride) 100 mls @ 100 mls/hr IVPB Q8@0400,1200,2000 [facility] PRN Reason: Protocol Insulin Human Lispro (Humalog) 0 units SC ACHS [facility] PRN Reason: Protocol Last Admin: 04/30/18 07:28 Dose: Not Given Losartan Potassium (Cozaar) 50 mg PO DAILY [facility] Last Admin: 04/30/18 08:17 Dose: 50 mg Olopatadine HCl (Patanol 0.1% Opht Soln) 1 drop OU DAILY [facility] Last Admin: 04/30/18 08:19 Dose: 1 drop Ondansetron HCl (Zofran Odt) 4 mg PO Q6 PRN PRN Reason: Nausea/Vomiting Last Admin: 04/25/18 09:24 Dose: 4 mg Pantoprazole Sodium (Protonix Ec Tab) 40 mg PO DAILY [facility] Last Admin: 04/30/18 08:18 Dose: 40 mg Saccharomyces Boulardii (Florastor) 250 mg PO BID [facility] Last Admin: 04/30/18 08:16 Dose: 250 mg Senna/Docusate Sodium (Senokot S 50 Mg-8.6 Mg) 1 tab PO HS [facility] Last Admin: 04/29/18 21:57 Dose: 1 tab Simethicone (Mylicon Chew Tab) 80 mg PO QID PRN PRN Reason: Flatulence Last Admin: 04/26/18 10:50 Dose: 80 mg - Labs Labs: 04/29/18 05:45 04/29/18 05:45 PT 15.7 Seconds (9.8-13.1) H 04/18/18 05:20 INR 1.4 (0.9-1.2) H 04/18/18 05:20 APTT 35.4 Seconds (25.6-37.1) 04/18/18 05:20 Assessment and Plan (1) Pelvic abscess Status: Acute (2) Anemia Status: Chronic (3) COPD (chronic obstructive pulmonary disease) Status: Chronic
[2018-04-30] MEDS: Meropenem 1 GM in Sodium Chloride 0.9% 100 ML IVPB SCH ×2 (11:29→20:15)
[2018-04-30] MEDS: Enoxaparin 40 mg Syringe SC SCH (11:33)
--- NOTE | 2018-04-30 11:39 | CP.PCM.PN ---
Subjective - Date & Time of Evaluation Date of Evaluation: 04/30/18 Time of Evaluation: 10:00 - Subjective Subjective: Patient was seen and examined. Still has leakage but has improved somewhat. Otherwise states she feels well with no other complaints. Objective - Vital Signs/Intake and Output Vital Signs (last 24 hours): Temp Pulse Resp BP Pulse Ox 98.2 F 106 H 20 127/75 96 04/30/18 08:00 04/30/18 08:17 04/30/18 08:17 04/30/18 08:17 04/30/18 08:00 - Medications Medications: Current Medications Acetaminophen (Tylenol 325mg Tab) 650 mg PO 0900,2100 [facility] Last Admin: 04/30/18 08:18 Dose: 650 mg Albuterol/Ipratropium (Duoneb 3 Mg/0.5 Mg (3 Ml) Ud) 3 ml INH RQID [facility] Last Admin: 04/30/18 11:34 Dose: Not Given Atorvastatin Calcium (Lipitor) 40 mg PO 2100 [facility] Last Admin: 04/29/18 21:57 Dose: 40 mg Diltiazem HCl (Cardizem) 30 mg PO QID [facility] Last Admin: 04/30/18 08:17 Dose: 30 mg Dimethicone (Proshield Plus Skin Protectant) 1 applic TOP Q12 [facility] Last Admin: 04/30/18 08:22 Dose: 1 applic Enoxaparin Sodium (Lovenox) 40 mg SC DAILY [facility] PRN Reason: Protocol Last Admin: 04/30/18 11:33 Dose: 40 mg Fluconazole (Diflucan Iv 200 Mg/100 Ml Ns) 100 mls @ 100 mls/hr IVPB DAILY@ 1700 [facility] PRN Reason: Protocol Last Admin: 04/29/18 17:19 Dose: 100 mls/hr Meropenem 1 gm/ Sodium (Chloride) 100 mls @ 100 mls/hr IVPB Q8@0400,1200,2000 [facility] PRN Reason: Protocol Last Admin: 04/30/18 11:29 Dose: 100 mls/hr Insulin Human Lispro (Humalog) 0 units SC ACHS [facility] PRN Reason: Protocol Last Admin: 04/30/18 11:33 Dose: 3 unit Losartan Potassium (Cozaar) 50 mg PO DAILY [facility] Last Admin: 04/30/18 08:17 Dose: 50 mg Olopatadine HCl (Patanol 0.1% Opht Soln) 1 drop OU DAILY [facility] Last Admin: 04/30/18 08:19 Dose: 1 drop Ondansetron HCl (Zofran Odt) 4 mg PO Q6 PRN PRN Reason: Nausea/Vomiting Last Admin: 04/25/18 09:24 Dose: 4 mg Pantoprazole Sodium (Protonix Ec Tab) 40 mg PO DAILY [facility] Last Admin: 04/30/18 08:18 Dose: 40 mg Saccharomyces Boulardii (Florastor) 250 mg PO BID [facility] Last Admin: 04/30/18 08:16 Dose: 250 mg Senna/Docusate Sodium (Senokot S 50 Mg-8.6 Mg) 1 tab PO HS [facility] Last Admin: 04/29/18 21:57 Dose: 1 tab Simethicone (Mylicon Chew Tab) 80 mg PO QID PRN PRN Reason: Flatulence Last Admin: 04/26/18 10:50 Dose: 80 mg - Labs Labs: 04/29/18 05:45 04/29/18 05:45 PT 15.7 Seconds (9.8-13.1) H 04/18/18 05:20 INR 1.4 (0.9-1.2) H 04/18/18 05:20 APTT 35.4 Seconds (25.6-37.1) 04/18/18 05:20 - Additional Findings Additional findings: Physical exam: Constitutional- cooperative, awake, alert Head- NCAT, PERRL Eye- PERRL, EOMI ENT- normal exam, MMM. Neck- normal inspection, supple, no JVD Respiratory- CTAB, no wheezes rales rhonchi Cardiovascular- RRR, +S1, +S2 no MRG GI/Abdominal- +Mildline surgical scare, slowly healing, with eschar, normal bowel sounds, soft, no mass, no hsm. + colostomy functioning well Skin- warm, dry Extremities Exam- normal capillary refill, normal inspection Neurological Exam- alert, awake, oriented Psych- normal mood, normal affect Assessment and Plan - Assessment and Plan (Free Text) Plan: ASSESSMENT/PLAN 87 yo female with history of CHF, COPD, AFib, HTN, DM2 and Hypothyroidism had colon resection with colostomy on 02/25/2018 after perforating colon during colonoscopy. Post op days were uneventful and patient was discharged in stable condition 8 days later. A month later patient was brought back because of abdominal pain associated with purulent discharge from the surgical wound. CT scan of abdomen showed large pelvic abscess. Patient was started on IV antibiotics and IR drained the abscess followed with wound vac placement. Repeat CT scan showed reduced pelvic abscess and new recto-vaginal fistula. Patient was transferred to TCU for continuation of IV antibiotic and therapy. 1. 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 Diabetes mellitus, type II BS controlled continue accuchek ACHS with Lispro coverage 3. CHF, diastolic dysfunction continue Losartan 4. Atrial fibrillation rate controlled continue Cardizem 5. COPD asymptomatic on Duoneb and Pulmicort 6. Hypertension BP stable continue Cardizem and Losartan 7. Hypothyroidism continue Levothyroxine 8. DVT prophylaxis continue Lovenox
[2018-04-30] MEDS: Fluconazole IV 200mg/100 ml NS 100 ML IVPB SCH (16:34)
[2018-04-30] MEDS: Docusate-Senna 50 mg-8.6 mg Tab PO SCH (22:11)
[2018-05-01] MEDS: Meropenem 1 GM in Sodium Chloride 0.9% 100 ML IVPB SCH ×3 (04:45→21:13)
[2018-05-01] MEDS: Insulin Lispro (humaLOG) 100 Units/ml Inj SC SCH ×4 (06:40→21:12)
[2018-05-01] MEDS: Albuterol-Ipratrop 3 mg / 0.5 (3 ml) UD INH SCH ×4 (07:41→19:14)
[2018-05-01] MEDS: Olopatadine 0.1% Opht SOLN OU SCH (08:27)
[2018-05-01] MEDS: Proshield Plus GEL TOP SCH ×2 (08:27→21:36)
[2018-05-01] MEDS: Pantoprazole 40 mg EC Tab PO SCH (08:28)
[2018-05-01] MEDS: Saccharomyces Boulardi 250 mg Cap PO SCH ×2 (08:28→16:23)
[2018-05-01] MEDS: Enoxaparin 40 mg Syringe SC SCH (08:28)
[2018-05-01 08:48] LABS: ALB/GLOB RATIO 0.6 (1.0-2.1); ALBUMIN 2.3 g/dL (3.5-5.0); ALT/SGPT 36 U/L (9-52); AST/SGOT 78 U/L (14-36); BLOOD UREA NITROGEN 9 mg/dl (7-17); GFR AFRICAN-AMERICAN > 60; GFR NON-AFRICAN AMERICAN > 60
--- NOTE | 2018-05-01 12:48 | CP.PCM.PN ---
Subjective - Date & Time of Evaluation Date of Evaluation: 05/01/18 Time of Evaluation: 12:47 - Subjective Subjective: Mood is good. Patient states she is feeling well. Vital signs are stable. Colostomy is functioning well. Still with nasima-vaginal discomfort because of continued small quantity drainage. Planned I&D of abdominal wall abscess in OR Friday. Topical steroid and anti-mycotic applied to thighs and perineum. Objective - Vital Signs/Intake and Output Vital Signs (last 24 hours): Temp Pulse Resp BP Pulse Ox 97.9 F 74 20 126/78 98 05/01/18 08:21 05/01/18 08:27 05/01/18 08:21 05/01/18 12:14 05/01/18 08:21 - Medications Medications: Current Medications Acetaminophen (Tylenol 325mg Tab) 650 mg PO 0900,2100 [facility] Last Admin: 05/01/18 08:28 Dose: 650 mg Albuterol/Ipratropium (Duoneb 3 Mg/0.5 Mg (3 Ml) Ud) 3 ml INH RQID [facility] Last Admin: 05/01/18 11:13 Dose: 3 ml Atorvastatin Calcium (Lipitor) 40 mg PO 2100 [facility] Last Admin: 04/30/18 20:15 Dose: 40 mg Desoximetasone (Topicort 0.25%) 1 ea TOP BID [facility] Diltiazem HCl (Cardizem) 30 mg PO QID [facility] Last Admin: 05/01/18 12:14 Dose: 30 mg Dimethicone (Proshield Plus Skin Protectant) 1 applic TOP Q12 [facility] Last Admin: 05/01/18 08:27 Dose: 1 applic Enoxaparin Sodium (Lovenox) 40 mg SC DAILY [facility] PRN Reason: Protocol Last Admin: 05/01/18 08:28 Dose: 40 mg Fluconazole (Diflucan Iv 200 Mg/100 Ml Ns) 100 mls @ 100 mls/hr IVPB DAILY@ 1700 [facility] PRN Reason: Protocol Last Admin: 04/30/18 16:34 Dose: 100 mls/hr Meropenem 1 gm/ Sodium (Chloride) 100 mls @ 100 mls/hr IVPB Q8@0400,1200,2000 [facility] PRN Reason: Protocol Last Admin: 05/01/18 11:47 Dose: 100 mls/hr Insulin Human Lispro (Humalog) 0 units SC ACHS [facility] PRN Reason: Protocol Last Admin: 05/01/18 11:47 Dose: 1 unit Losartan Potassium (Cozaar) 50 mg PO DAILY [facility] Last Admin: 05/01/18 08:27 Dose: Not Given Nystatin (Nystop Topical Powder) 1 applic TOP TID [facility] Last Admin: 05/01/18 12:14 Dose: 1 applic Olopatadine HCl (Patanol 0.1% Opht Soln) 1 drop OU DAILY [facility] Last Admin: 05/01/18 08:27 Dose: 1 drop Ondansetron HCl (Zofran Odt) 4 mg PO Q6 PRN PRN Reason: Nausea/Vomiting Last Admin: 04/25/18 09:24 Dose: 4 mg Pantoprazole Sodium (Protonix Ec Tab) 40 mg PO DAILY [facility] Last Admin: 05/01/18 08:28 Dose: 40 mg Saccharomyces Boulardii (Florastor) 250 mg PO BID [facility] Last Admin: 05/01/18 08:28 Dose: 250 mg Senna/Docusate Sodium (Senokot S 50 Mg-8.6 Mg) 1 tab PO HS [facility] Last Admin: 04/30/18 22:11 Dose: 1 tab Simethicone (Mylicon Chew Tab) 80 mg PO QID PRN PRN Reason: Flatulence Last Admin: 04/26/18 10:50 Dose: 80 mg - Labs Labs: 04/29/18 05:45 05/01/18 08:14 PT 15.7 Seconds (9.8-13.1) H 04/18/18 05:20 INR 1.4 (0.9-1.2) H 04/18/18 05:20 APTT 35.4 Seconds (25.6-37.1) 04/18/18 05:20 Assessment and Plan (1) Pelvic abscess Status: Acute (2) Anemia Status: Chronic (3) COPD (chronic obstructive pulmonary disease) Status: Chronic
[2018-05-01] MEDS: Fluconazole IV 200mg/100 ml NS 100 ML IVPB SCH (16:21)
[2018-05-01] MEDS: Desoximetasone 0.25% Cream(15 gm) TOP SCH (16:22)
[2018-05-01] MEDS: Docusate-Senna 50 mg-8.6 mg Tab PO SCH (21:12)
--- NOTE | 2018-05-01 22:07 | CP.PCM.PCO ---
Physician Communication Note - Physician Communication Note Physician Communication Note: Plan for OR Friday for I&D of abd abscess
[2018-05-02] MEDS: Meropenem 1 GM in Sodium Chloride 0.9% 100 ML IVPB SCH ×3 (03:22→20:16)
[2018-05-02] MEDS: Insulin Lispro (humaLOG) 100 Units/ml Inj SC SCH ×4 (06:39→21:21)
[2018-05-02] MEDS: Albuterol-Ipratrop 3 mg / 0.5 (3 ml) UD INH SCH ×4 (07:43→19:09)
[2018-05-02] MEDS: Desoximetasone 0.25% Cream(15 gm) TOP SCH ×2 (09:00→16:52)
[2018-05-02] MEDS: Saccharomyces Boulardi 250 mg Cap PO SCH ×2 (09:04→16:43)
[2018-05-02] MEDS: Enoxaparin 40 mg Syringe SC SCH (09:04)
[2018-05-02] MEDS: Olopatadine 0.1% Opht SOLN OU SCH (09:07)
[2018-05-02] MEDS: Simethicone 80 mg Chewtab PO PRN (09:11)
[2018-05-02] MEDS: Pantoprazole 40 mg EC Tab PO SCH (09:11)
[2018-05-02] MEDS: Proshield Plus GEL TOP SCH ×2 (09:17→21:35)
[2018-05-02] MEDS: Fluconazole IV 200mg/100 ml NS 100 ML IVPB SCH (16:42)
[2018-05-02] MEDS: Docusate-Senna 50 mg-8.6 mg Tab PO SCH (21:20)
[2018-05-03] MEDS: Meropenem 1 GM in Sodium Chloride 0.9% 100 ML IVPB SCH ×3 (03:39→21:14)
[2018-05-03] MEDS: Insulin Lispro (humaLOG) 100 Units/ml Inj SC SCH ×4 (07:10→21:12)
[2018-05-03] MEDS: Albuterol-Ipratrop 3 mg / 0.5 (3 ml) UD INH SCH ×4 (07:34→19:43)
--- NOTE | 2018-05-03 07:41 | CP.PCM.PCO ---
Assessment & Plan - Assessment and Plan (Free Text) Assessment: 87yo F with abdominal wall abscess. Also with improving intra-abdominal abscess. Plan: - To OR for I&D of abdominal wall abscess on 05/04/18 - NPO past midnight - Continue Abx as per ID - Diet as tolerated today - Bowel regimen Further recs as per Dr. Danyel Espinoza PGY1 surgery pager: [phone]
[2018-05-03] MEDS: Saccharomyces Boulardi 250 mg Cap PO SCH ×2 (08:11→16:33)
[2018-05-03] MEDS: Enoxaparin 40 mg Syringe SC SCH (08:14)
[2018-05-03] MEDS: Olopatadine 0.1% Opht SOLN OU SCH (08:15)
[2018-05-03] MEDS: Proshield Plus GEL TOP SCH ×2 (08:22→21:14)
[2018-05-03] MEDS: Pantoprazole 40 mg EC Tab PO SCH (08:22)
[2018-05-03] MEDS: Desoximetasone 0.25% Cream(15 gm) TOP SCH (08:23)
[2018-05-03] MEDS: Fluconazole IV 200mg/100 ml NS 100 ML IVPB SCH (16:32)
[2018-05-03] MEDS: Docusate-Senna 50 mg-8.6 mg Tab PO SCH (21:13)
[2018-05-04] MEDS: Meropenem 1 GM in Sodium Chloride 0.9% 100 ML IVPB SCH ×3 (04:37→20:10)
[2018-05-04 06:37] LABS: HEMOGLOBIN 11.2 g/dL (12.0-16.0); MEAN CELL VOLUME 92.2 fl (81.0-99.0); MEAN CORPUSCULAR HGB CONC 33.6 g/dL (33.0-37.0); RBC 3.6 Mil/uL (3.80-5.20)
[2018-05-04] MEDS: Insulin Lispro (humaLOG) 100 Units/ml Inj SC SCH ×4 (06:47→22:01)
[2018-05-04 07:03] LABS: BLOOD UREA NITROGEN 10 mg/dl (7-17); CALCIUM 8.4 mg/dL (8.4-10.2); GFR AFRICAN-AMERICAN > 60; GFR NON-AFRICAN AMERICAN > 60
[2018-05-04] MEDS: Albuterol-Ipratrop 3 mg / 0.5 (3 ml) UD INH SCH ×4 (07:15→19:16)
[2018-05-04] MEDS ORDERED: Succinylcholine 200 mg/10 ml Inj IV ONE (07:55)
[2018-05-04] MEDS: Saccharomyces Boulardi 250 mg Cap PO SCH ×2 (08:04→16:21)
[2018-05-04] MEDS: Pantoprazole 40 mg EC Tab PO SCH (08:05)
[2018-05-04] MEDS: Olopatadine 0.1% Opht SOLN OU SCH (08:05)
[2018-05-04] MEDS: Proshield Plus GEL TOP SCH (08:05)
[2018-05-04] MEDS: Desoximetasone 0.25% Cream(15 gm) TOP SCH ×2 (08:06→18:45)
[2018-05-04] MEDS ORDERED: Midazolam 2 MG/2 ML VIAL ONE (08:29)
--- NOTE | 2018-05-04 08:45 | CP.SDSHP ---
Same Day Surgery H & P - History Proposed Procedure: Incision and drainage of abdominal wall abscess Pre-Op Diagnosis: Abdominal Wall Abscess - Previous Medical/Surgical History Cardiac: Hypertension, ASHD/CAD, Hx of CHF Endocrine/Metabolic: Thyroid Disease, Diabetes Pain: 0. No Pain - Allergies Allergies: Allergies No Known Allergies Allergy (Verified 04/17/18 19:00) - Physical Exam Vital Signs: Vital Signs 05/04/18 08:16 Temperature 97.9 F Pulse Rate 88 Respiratory 20 Rate Blood Pressure 128/68 O2 Sat by Pulse 99 Oximetry - {Optional Preform as Required} Abdomen: Other (ostomy in place. Infraumbilical abdominal wall area of erythema and some fluctuance) - Impression Impression: 87yo F with Abdominal wall abscess Pt. Evaluated Today:Candidate for Anesthesia & Procedure: Yes Short Stay Discharge - Short Stay Discharge Admitting Diagnosis/Reason for Visit: WOUND INFECTION Disposition: REHAB FACILITY/REHAB UNIT Additional Instructions (Diet, Activity): Resume Diet. Replace abdominal wound dressing as needed.
--- NOTE | 2018-05-04 09:34 | PCM.SURG1 ---
Surgeon's Initial Post Op Note - Surgeon's Notes Surgeon: Dr. Montaño Spray Ii Painter: Silas PGY2; Olga PGY1 Type of Anesthesia: IV Sedation, Local Anesthesia Administered By: Dr. Nazario Pre-Operative Diagnosis: Abdominal wall abscess Operative Findings: Abdominal wall abscess with approximately 20cc of purulent material expressed from abscess cavity. See operative report Post-Operative Diagnosis: Same Operation Performed: Incision and Drainage of Abdominal wall abscess Specimen/Specimens Removed: Wound culture Estimated Blood Loss: EBL {In ML}: 5 Blood Products Given: N/A Drains Used: Yoli ([place] x2) Post-Op Condition: Fair Date of Surgery/Procedure: 05/04/18 Time of Surgery/Procedure: 09:37
[2018-05-04] MEDS: Fluconazole IV 200mg/100 ml NS 100 ML IVPB SCH (16:00)
[2018-05-04] MEDS: Docusate-Senna 50 mg-8.6 mg Tab PO SCH (21:27)
[2018-05-05] MEDS: Meropenem 1 GM in Sodium Chloride 0.9% 100 ML IVPB SCH ×2 (03:26→11:17)
[2018-05-05] MEDS: Proshield Plus GEL TOP SCH ×2 (04:57→16:22)
[2018-05-05] MEDS: Desoximetasone 0.25% Cream(15 gm) TOP SCH ×2 (04:58→16:14)
[2018-05-05] MEDS: Insulin Lispro (humaLOG) 100 Units/ml Inj SC SCH ×4 (06:31→21:28)
[2018-05-05] MEDS: Albuterol-Ipratrop 3 mg / 0.5 (3 ml) UD INH SCH ×4 (07:13→19:20)
--- NOTE | 2018-05-05 07:36 | CP.PCM.PN ---
Subjective - Date & Time of Evaluation Date of Evaluation: 05/05/18 Time of Evaluation: 07:00 - Subjective Subjective: Surgery Progress note. Dr. Montaño Pt seen and examined at bedside. No acute events overnight. States that she feels constipated and has not had a BM in 3 days. Midline abdominal wound intact with dressing in place. States that she continues to work with physical therapy. Objective - Vital Signs/Intake and Output Vital Signs (last 24 hours): Temp Pulse Resp BP Pulse Ox 97.7 F 80 20 120/74 97 05/04/18 20:23 05/04/18 21:25 05/04/18 21:25 05/04/18 21:25 05/04/18 21:25 - Medications Medications: Current Medications Acetaminophen (Tylenol 325mg Tab) 650 mg PO 0900,2100 PRN PRN Reason: Pain, Mild (1-3) Albuterol/Ipratropium (Duoneb 3 Mg/0.5 Mg (3 Ml) Ud) 3 ml INH RQID [facility] Last Admin: 05/05/18 07:13 Dose: 3 ml Atorvastatin Calcium (Lipitor) 40 mg PO 2100 [facility] Last Admin: 05/04/18 21:26 Dose: 40 mg Bisacodyl (Dulcolax) 10 mg [place] ONCE ONE Stop: 05/05/18 07:33 Desoximetasone (Topicort 0.25%) 1 ea TOP Q12@0500,1700 [facility] Last Admin: 05/05/18 04:58 Dose: 1 applic Diltiazem HCl (Cardizem) 30 mg PO QID [facility] Last Admin: 05/04/18 21:25 Dose: 30 mg Dimethicone (Proshield Plus Skin Protectant) 1 applic TOP Q12@0500,1700 [facility] Last Admin: 05/05/18 04:57 Dose: 1 applic Enoxaparin Sodium (Lovenox) 40 mg SC DAILY [facility] PRN Reason: Protocol Last Admin: 05/03/18 08:14 Dose: 40 mg Fluconazole (Diflucan Iv 200 Mg/100 Ml Ns) 100 mls @ 100 mls/hr IVPB DAILY@ 1700 [facility] PRN Reason: Protocol Last Admin: 05/04/18 16:00 Dose: 100 mls/hr Meropenem 1 gm/ Sodium (Chloride) 100 mls @ 100 mls/hr IVPB Q8@0400,1200,2000 [facility] PRN Reason: Protocol Last Admin: 05/05/18 03:26 Dose: 100 mls/hr Insulin Human Lispro (Humalog) 0 units SC ACHS [facility] PRN Reason: Protocol Last Admin: 05/05/18 06:31 Dose: Not Given Losartan Potassium (Cozaar) 50 mg PO DAILY [facility] Last Admin: 05/04/18 08:04 Dose: Not Given Nystatin (Nystop Topical Powder) 1 applic TOP TID@0900,1300,2100 [facility] Last Admin: 05/04/18 21:27 Dose: 1 appl Olopatadine HCl (Patanol 0.1% Opht Soln) 1 drop OU DAILY [facility] Last Admin: 05/04/18 08:05 Dose: 1 drop Ondansetron HCl (Zofran Odt) 4 mg PO Q6 PRN PRN Reason: Nausea/Vomiting Last Admin: 04/25/18 09:24 Dose: 4 mg Pantoprazole Sodium (Protonix Ec Tab) 40 mg PO DAILY [facility] Last Admin: 05/04/18 08:05 Dose: Not Given Saccharomyces Boulardii (Florastor) 250 mg PO BID [facility] Last Admin: 05/04/18 16:21 Dose: 250 mg Senna/Docusate Sodium (Senokot S 50 Mg-8.6 Mg) 1 tab PO HS [facility] Last Admin: 05/04/18 21:27 Dose: 1 tab Simethicone (Mylicon Chew Tab) 80 mg PO QID PRN PRN Reason: Flatulence Last Admin: 05/02/18 09:11 Dose: 80 mg Tramadol HCl (Ultram) 50 mg PO TID PRN PRN Reason: Pain, severe (8-10) Last Admin: 05/05/18 02:16 Dose: 50 mg - Labs Labs: 05/04/18 05:50 05/04/18 05:50 PT 15.7 Seconds (9.8-13.1) H 04/18/18 05:20 INR 1.4 (0.9-1.2) H 04/18/18 05:20 APTT 35.4 Seconds (25.6-37.1) 04/18/18 05:20 - Constitutional Appears: Non-toxic, No Acute Distress - Head Exam Head Exam: ATRAUMATIC, NORMAL INSPECTION, NORMOCEPHALIC - Eye Exam Eye Exam: EOMI, Normal appearance. absent: Scleral icterus - ENT Exam ENT Exam: Mucous Membranes Moist - Respiratory Exam Respiratory Exam: NORMAL BREATHING PATTERN. absent: Accessory Muscle Use, Respiratory Distress - Cardiovascular Exam Cardiovascular Exam: RRR. absent: JVD - GI/Abdominal Exam GI & Abdominal Exam: Soft. absent: Firm, Guarding, Rigid, Rebound Additional comments: mild upper mid abdominal tenderness and distention. Soft, no rebound, no guarding. Infraumbilical I&D site with myrna x2 in place. Packing removed. Dressing replaced. - Extremities Exam Extremities Exam: Normal Inspection. absent: Calf Tenderness - Neurological Exam Neurological Exam: Alert, Awake, Oriented x3 Assessment and Plan - Assessment and Plan (Free Text) Assessment: 87yo F with abdominal wall abscess, s/p I&D POD1. Also with improving intra- abdominal abscess. Plan: - Dressing care as needed: Dry gauze and Abdominal pads with tape - Resume regular diet - Continue Abx as per ID - Bowel regimen: Will also administer Dulcolax supp per ostomy Further recs as per Dr. Danyel Espinoza PGY1 surgery pager: [phone]
[2018-05-05] MEDS: Olopatadine 0.1% Opht SOLN OU SCH (08:09)
[2018-05-05] MEDS: Enoxaparin 40 mg Syringe SC SCH (08:09)
[2018-05-05] MEDS: Pantoprazole 40 mg EC Tab PO SCH (08:09)
[2018-05-05] MEDS: Saccharomyces Boulardi 250 mg Cap PO SCH ×2 (08:10→16:13)
--- NOTE | 2018-05-05 11:20 | CP.PCM.PN ---
Subjective - Date & Time of Evaluation Date of Evaluation: 05/05/18 Time of Evaluation: 11:20 - Subjective Subjective: Spirits are good. Colostomy is functioning well. No complaints of abdominal pain. Appetite is good, no nausea or vomiting. Less perinial irritation with current regimen. Still has a small amount of vaginal discharge/drainage. Stronger and able to cooperate with PT program. No cough or sputum expectoration. No audible wheezing. Few sonorous rhonchi in dependant zones. Objective - Vital Signs/Intake and Output Vital Signs (last 24 hours): Temp Pulse Resp BP Pulse Ox 97.7 F 77 20 134/72 97 05/05/18 09:04 05/05/18 09:04 05/05/18 09:04 05/05/18 09:04 05/05/18 09:04 - Medications Medications: Current Medications Acetaminophen (Tylenol 325mg Tab) 650 mg PO 0900,2100 PRN PRN Reason: Pain, Mild (1-3) Albuterol/Ipratropium (Duoneb 3 Mg/0.5 Mg (3 Ml) Ud) 3 ml INH RQID [facility] Last Admin: 05/05/18 11:11 Dose: 3 ml Atorvastatin Calcium (Lipitor) 40 mg PO 2100 [facility] Last Admin: 05/04/18 21:26 Dose: 40 mg Desoximetasone (Topicort 0.25%) 1 ea TOP Q12@0500,1700 [facility] Last Admin: 05/05/18 04:58 Dose: 1 applic Diltiazem HCl (Cardizem) 30 mg PO QID [facility] Last Admin: 05/05/18 08:08 Dose: 30 mg Dimethicone (Proshield Plus Skin Protectant) 1 applic TOP Q12@0500,1700 [facility] Last Admin: 05/05/18 04:57 Dose: 1 applic Enoxaparin Sodium (Lovenox) 40 mg SC DAILY [facility] PRN Reason: Protocol Last Admin: 05/05/18 08:09 Dose: 40 mg Fluconazole (Diflucan Iv 200 Mg/100 Ml Ns) 100 mls @ 100 mls/hr IVPB DAILY@ 1700 [facility] PRN Reason: Protocol Last Admin: 05/04/18 16:00 Dose: 100 mls/hr Meropenem 1 gm/ Sodium (Chloride) 100 mls @ 100 mls/hr IVPB Q8@0400,1200,2000 [facility] PRN Reason: Protocol Last Admin: 05/05/18 03:26 Dose: 100 mls/hr Insulin Human Lispro (Humalog) 0 units SC ACHS [facility] PRN Reason: Protocol Last Admin: 05/05/18 11:04 Dose: Not Given Losartan Potassium (Cozaar) 50 mg PO DAILY [facility] Last Admin: 05/05/18 08:09 Dose: 50 mg Nystatin (Nystop Topical Powder) 1 applic TOP TID@0900,1300,2100 [facility] Last Admin: 05/05/18 08:15 Dose: 1 appl Olopatadine HCl (Patanol 0.1% Opht Soln) 1 drop OU DAILY [facility] Last Admin: 05/05/18 08:09 Dose: 1 drop Ondansetron HCl (Zofran Odt) 4 mg PO Q6 PRN PRN Reason: Nausea/Vomiting Last Admin: 04/25/18 09:24 Dose: 4 mg Pantoprazole Sodium (Protonix Ec Tab) 40 mg PO DAILY [facility] Last Admin: 05/05/18 08:09 Dose: 40 mg Saccharomyces Boulardii (Florastor) 250 mg PO BID [facility] Last Admin: 05/05/18 08:10 Dose: 250 mg Senna/Docusate Sodium (Senokot S 50 Mg-8.6 Mg) 1 tab PO HS [facility] Last Admin: 05/04/18 21:27 Dose: 1 tab Simethicone (Mylicon Chew Tab) 80 mg PO QID PRN PRN Reason: Flatulence Last Admin: 05/02/18 09:11 Dose: 80 mg Tramadol HCl (Ultram) 50 mg PO TID PRN PRN Reason: Pain, severe (8-10) Last Admin: 05/05/18 02:16 Dose: 50 mg - Labs Labs: 05/04/18 05:50 05/04/18 05:50 PT 15.7 Seconds (9.8-13.1) H 04/18/18 05:20 INR 1.4 (0.9-1.2) H 04/18/18 05:20 APTT 35.4 Seconds (25.6-37.1) 04/18/18 05:20 Assessment and Plan (1) Pelvic abscess Status: Acute (2) Anemia Status: Chronic (3) COPD (chronic obstructive pulmonary disease) Status: Chronic
--- NOTE | 2018-05-05 15:49 | CP.PCM.PN ---
Subjective - Date & Time of Evaluation Date of Evaluation: 05/05/18 Time of Evaluation: 11:00 - Subjective Subjective: Patient seen and examined. Claimed surgical wound seems to be improving when dressed today. Denied any complaint. Objective - Vital Signs/Intake and Output Vital Signs (last 24 hours): Temp Pulse Resp BP Pulse Ox 97.7 F 77 20 118/59 L 97 05/05/18 09:04 05/05/18 09:04 05/05/18 09:04 05/05/18 12:13 05/05/18 09:04 - Medications Medications: Current Medications Acetaminophen (Tylenol 325mg Tab) 650 mg PO 0900,2100 PRN PRN Reason: Pain, Mild (1-3) Albuterol/Ipratropium (Duoneb 3 Mg/0.5 Mg (3 Ml) Ud) 3 ml INH RQID [facility] Last Admin: 05/05/18 15:44 Dose: 3 ml Atorvastatin Calcium (Lipitor) 40 mg PO 2100 [facility] Last Admin: 05/04/18 21:26 Dose: 40 mg Desoximetasone (Topicort 0.25%) 1 ea TOP Q12@0500,1700 [facility] Last Admin: 05/05/18 04:58 Dose: 1 applic Diltiazem HCl (Cardizem) 30 mg PO QID [facility] Last Admin: 05/05/18 12:13 Dose: Not Given Dimethicone (Proshield Plus Skin Protectant) 1 applic TOP Q12@0500,1700 [facility] Last Admin: 05/05/18 04:57 Dose: 1 applic Enoxaparin Sodium (Lovenox) 40 mg SC DAILY [facility] PRN Reason: Protocol Last Admin: 05/05/18 08:09 Dose: 40 mg Fluconazole (Diflucan Iv 200 Mg/100 Ml Ns) 100 mls @ 100 mls/hr IVPB DAILY@ 1700 [facility] PRN Reason: Protocol Last Admin: 05/04/18 16:00 Dose: 100 mls/hr Meropenem 1 gm/ Sodium (Chloride) 100 mls @ 100 mls/hr IVPB Q8@0400,1200,2000 [facility] PRN Reason: Protocol Last Admin: 05/05/18 11:17 Dose: 100 mls/hr Insulin Human Lispro (Humalog) 0 units SC ACHS [facility] PRN Reason: Protocol Last Admin: 05/05/18 15:35 Dose: Not Given Losartan Potassium (Cozaar) 50 mg PO DAILY [facility] Last Admin: 05/05/18 08:09 Dose: 50 mg Nystatin (Nystop Topical Powder) 1 applic TOP TID@0900,1300,2100 [facility] Last Admin: 05/05/18 12:13 Dose: 1 appl Olopatadine HCl (Patanol 0.1% Opht Soln) 1 drop OU DAILY [facility] Last Admin: 05/05/18 08:09 Dose: 1 drop Ondansetron HCl (Zofran Odt) 4 mg PO Q6 PRN PRN Reason: Nausea/Vomiting Last Admin: 04/25/18 09:24 Dose: 4 mg Pantoprazole Sodium (Protonix Ec Tab) 40 mg PO DAILY [facility] Last Admin: 05/05/18 08:09 Dose: 40 mg Saccharomyces Boulardii (Florastor) 250 mg PO BID [facility] Last Admin: 05/05/18 08:10 Dose: 250 mg Senna/Docusate Sodium (Senokot S 50 Mg-8.6 Mg) 1 tab PO HS [facility] Last Admin: 05/04/18 21:27 Dose: 1 tab Simethicone (Mylicon Chew Tab) 80 mg PO QID PRN PRN Reason: Flatulence Last Admin: 05/02/18 09:11 Dose: 80 mg Tramadol HCl (Ultram) 50 mg PO TID PRN PRN Reason: Pain, severe (8-10) Last Admin: 05/05/18 02:16 Dose: 50 mg - Labs Labs: 05/04/18 05:50 05/04/18 05:50 PT 15.7 Seconds (9.8-13.1) H 04/18/18 05:20 INR 1.4 (0.9-1.2) H 04/18/18 05:20 APTT 35.4 Seconds (25.6-37.1) 04/18/18 05:20 - Constitutional Appears: No Acute Distress - Head Exam Head Exam: ATRAUMATIC - Eye Exam Eye Exam: absent: Scleral icterus - ENT Exam ENT Exam: Mucous Membranes Moist - Neck Exam Neck Exam: absent: Meningismus - Respiratory Exam Respiratory Exam: absent: Rales, Rhonchi, Wheezes, Respiratory Distress - Cardiovascular Exam Cardiovascular Exam: REGULAR RHYTHM, +S1, +S2 - GI/Abdominal Exam GI & Abdominal Exam: Soft. absent: Tenderness Additional comments: dressing clean and dry. colostomy bag intact. no sign of infection. - Rectal Exam Rectal Exam: Deferred - Neurological Exam Neurological Exam: Alert, Oriented x3 - Psychiatric Exam Psychiatric exam: Normal Affect - Skin Skin Exam: Dry, Intact Assessment and Plan - Assessment and Plan (Free Text) Assessment: 87 yo female with history of CHF, COPD, AFib, HTN, DM2 and Hypothyroidism had colon resection with colostomy on 02/25/2018 after perforating colon during colonoscopy. Post op days were uneventful and patient was discharged in stable condition 8 days later. A month later patient was brought back because of abdominal pain associated with purulent discharge from the surgical wound. CT scan of abdomen showed large pelvic abscess. Patient was started on IV antibiotics and IR drained the abscess followed with wound vac placement. Repeat CT scan showed reduced pelvic abscess and new recto-vaginal fistula. Patient was transferred to TCU for continuation of IV antibiotic and therapy. 1. Pelvic Abscess and Abdominal Wound Abscess at surgical site wound culture grew Proteus and ESBL E Coli continue Meropenem and Diflucan Dr Garcia on ID consult 2. Diabetes mellitus, type II BS controlled continue accuchek ACHS with Lispro coverage 3. CHF, diastolic dysfunction continue Losartan 4. Atrial fibrillation rate controlled continue Cardizem 5. COPD asymptomatic on Duoneb and Pulmicort 6. Hypertension BP stable continue Cardizem and Losartan 7. Hypothyroidism continue Levothyroxine 8. DVT prophylaxis continue Lovenox
[2018-05-05] MEDS: Fluconazole IV 200mg/100 ml NS 100 ML IVPB SCH (16:12)
[2018-05-05] MEDS: Simethicone 80 mg Chewtab PO PRN (21:26)
[2018-05-05] MEDS: Docusate-Senna 50 mg-8.6 mg Tab PO SCH (21:27)
[2018-05-06] MEDS: Proshield Plus GEL TOP SCH ×2 (04:14→17:04)
[2018-05-06] MEDS: Meropenem 1 GM in Sodium Chloride 0.9% 100 ML IVPB SCH ×3 (04:15→20:18)
[2018-05-06] MEDS: Desoximetasone 0.25% Cream(15 gm) TOP SCH ×2 (04:16→17:04)
[2018-05-06] MEDS: Insulin Lispro (humaLOG) 100 Units/ml Inj SC SCH ×4 (06:32→21:15)
[2018-05-06] MEDS: Albuterol-Ipratrop 3 mg / 0.5 (3 ml) UD INH SCH ×4 (07:18→19:30)
[2018-05-06] MEDS: Saccharomyces Boulardi 250 mg Cap PO SCH ×2 (09:39→17:02)
[2018-05-06] MEDS: Enoxaparin 40 mg Syringe SC SCH (09:39)
[2018-05-06] MEDS: Olopatadine 0.1% Opht SOLN OU SCH (09:40)
[2018-05-06] MEDS: Pantoprazole 40 mg EC Tab PO SCH (09:46)
--- NOTE | 2018-05-06 12:37 | CP.PCM.PN ---
Subjective - Date & Time of Evaluation Date of Evaluation: 05/06/18 Time of Evaluation: 10:25 - Subjective Subjective: Surgery Progress note. Dr. Montaño Pt seen and examined at bedside. No acute events overnight. No N/V/D. States that her ostomy started functioning after Dulcolax yesterday. No F/C. No new complaints. Objective - Vital Signs/Intake and Output Vital Signs (last 24 hours): Temp Pulse Resp BP Pulse Ox 96.4 F L 87 20 134/86 98 05/06/18 08:23 05/06/18 09:38 05/06/18 08:23 05/06/18 09:38 05/06/18 08:23 - Medications Medications: Current Medications Acetaminophen (Tylenol 325mg Tab) 650 mg PO 0900,2100 PRN PRN Reason: Pain, Mild (1-3) Albuterol/Ipratropium (Duoneb 3 Mg/0.5 Mg (3 Ml) Ud) 3 ml INH RQID [facility] Last Admin: 05/06/18 11:18 Dose: 3 ml Atorvastatin Calcium (Lipitor) 40 mg PO 2100 [facility] Last Admin: 05/05/18 21:26 Dose: 40 mg Desoximetasone (Topicort 0.25%) 1 ea TOP Q12@0500,1700 [facility] Last Admin: 05/06/18 04:16 Dose: 1 applic Diltiazem HCl (Cardizem) 30 mg PO QID [facility] Last Admin: 05/06/18 09:38 Dose: 30 mg Dimethicone (Proshield Plus Skin Protectant) 1 applic TOP Q12@0500,1700 [facility] Last Admin: 05/06/18 04:14 Dose: 1 applic Enoxaparin Sodium (Lovenox) 40 mg SC DAILY [facility] PRN Reason: Protocol Last Admin: 05/06/18 09:39 Dose: 40 mg Fluconazole (Diflucan Iv 200 Mg/100 Ml Ns) 100 mls @ 100 mls/hr IVPB DAILY@ 1700 [facility] PRN Reason: Protocol Last Admin: 05/05/18 16:12 Dose: 100 mls/hr Meropenem 1 gm/ Sodium (Chloride) 100 mls @ 100 mls/hr IVPB Q8@0400,1200,2000 [facility] PRN Reason: Protocol Last Admin: 05/06/18 12:06 Dose: 100 mls/hr Insulin Human Lispro (Humalog) 0 units SC ACHS [facility] PRN Reason: Protocol Last Admin: 05/06/18 12:05 Dose: Not Given Losartan Potassium (Cozaar) 50 mg PO DAILY [facility] Last Admin: 05/06/18 09:38 Dose: 50 mg Nystatin (Nystop Topical Powder) 1 applic TOP TID@0900,1300,2100 [facility] Last Admin: 05/06/18 09:45 Dose: 1 appl Olopatadine HCl (Patanol 0.1% Opht Soln) 1 drop OU DAILY [facility] Last Admin: 05/06/18 09:40 Dose: 1 drop Ondansetron HCl (Zofran Odt) 4 mg PO Q6 PRN PRN Reason: Nausea/Vomiting Last Admin: 04/25/18 09:24 Dose: 4 mg Pantoprazole Sodium (Protonix Ec Tab) 40 mg PO DAILY [facility] Last Admin: 05/06/18 09:46 Dose: 40 mg Saccharomyces Boulardii (Florastor) 250 mg PO BID [facility] Last Admin: 05/06/18 09:39 Dose: 250 mg Senna/Docusate Sodium (Senokot S 50 Mg-8.6 Mg) 1 tab PO HS [facility] Last Admin: 05/05/18 21:27 Dose: 1 tab Simethicone (Mylicon Chew Tab) 80 mg PO QID PRN PRN Reason: Flatulence Last Admin: 05/05/18 21:26 Dose: 80 mg Tramadol HCl (Ultram) 50 mg PO TID PRN PRN Reason: Pain, severe (8-10) Last Admin: 05/05/18 16:12 Dose: 50 mg - Labs Labs: 05/04/18 05:50 05/04/18 05:50 PT 15.7 Seconds (9.8-13.1) H 04/18/18 05:20 INR 1.4 (0.9-1.2) H 04/18/18 05:20 APTT 35.4 Seconds (25.6-37.1) 04/18/18 05:20 - Constitutional Appears: Well, Non-toxic, No Acute Distress - Head Exam Head Exam: ATRAUMATIC, NORMAL INSPECTION, NORMOCEPHALIC - Eye Exam Eye Exam: EOMI, Normal appearance. absent: Scleral icterus - ENT Exam ENT Exam: Mucous Membranes Moist - GI/Abdominal Exam GI & Abdominal Exam: Soft. absent: Distended, Firm, Guarding, Tenderness, Rebound Additional comments: Ostomy appliance in place with brown stool output present. Midline infraumbilical wound with myrna x2 in place. Jaimee-incisional erythema improved. Dressing replaced. - Extremities Exam Extremities Exam: Normal Inspection. absent: Calf Tenderness - Neurological Exam Neurological Exam: Alert, Awake, Oriented x3 Assessment and Plan - Assessment and Plan (Free Text) Assessment: 87yo F w abdominal wall abscess, s/p I&D POD 2. Improving Intra-abdominal abscess. Plan: - Please replace dressing as needed: Dry gauze and Abdominal pads with tape - Continue regular diet - Continue Abx as per ID - Continue bowel regimen prn - Encourage PT - No further surgical intervention needed at this time. Please follow up with Dr. Montaño in office in 10-14 days after discharge. Further recs as per Dr. Danyel Espinoza PGY1 surgery pager: [phone]
[2018-05-06] MEDS: Fluconazole IV 200mg/100 ml NS 100 ML IVPB SCH (17:01)
[2018-05-06] MEDS: Docusate-Senna 50 mg-8.6 mg Tab PO SCH (21:19)
[2018-05-07] MEDS: Meropenem 1 GM in Sodium Chloride 0.9% 100 ML IVPB SCH ×3 (04:57→21:04)
[2018-05-07] MEDS: Proshield Plus GEL TOP SCH ×2 (05:00→16:13)
[2018-05-07] MEDS: Desoximetasone 0.25% Cream(15 gm) TOP SCH ×2 (05:08→17:29)
[2018-05-07] MEDS: Albuterol-Ipratrop 3 mg / 0.5 (3 ml) UD INH SCH ×4 (07:05→19:54)
[2018-05-07] MEDS: Insulin Lispro (humaLOG) 100 Units/ml Inj SC SCH ×4 (07:45→21:06)
[2018-05-07] MEDS: Saccharomyces Boulardi 250 mg Cap PO SCH ×2 (08:48→16:00)
[2018-05-07] MEDS: Enoxaparin 40 mg Syringe SC SCH (08:48)
[2018-05-07] MEDS: Pantoprazole 40 mg EC Tab PO SCH (08:51)
[2018-05-07] MEDS: Olopatadine 0.1% Opht SOLN OU SCH (09:29)
--- NOTE | 2018-05-07 15:37 | CP.PCM.PN ---
Subjective - Date & Time of Evaluation Date of Evaluation: 05/07/18 Time of Evaluation: 11:30 - Subjective Subjective: Patient seen and examined. Complaining of itchiness and drainage from her vagina Objective - Vital Signs/Intake and Output Vital Signs (last 24 hours): Temp Pulse Resp BP Pulse Ox 97.3 F L 91 H 20 105/56 L 99 05/07/18 09:02 05/07/18 13:05 05/07/18 13:05 05/07/18 13:05 05/07/18 09:02 - Medications Medications: Current Medications Acetaminophen (Tylenol 325mg Tab) 650 mg PO 0900,2100 PRN PRN Reason: Pain, Mild (1-3) Albuterol/Ipratropium (Duoneb 3 Mg/0.5 Mg (3 Ml) Ud) 3 ml INH RQID [facility] Last Admin: 05/07/18 11:22 Dose: 3 ml Atorvastatin Calcium (Lipitor) 40 mg PO 2100 [facility] Last Admin: 05/06/18 21:17 Dose: 40 mg Desoximetasone (Topicort 0.25%) 1 ea TOP Q12@0500,1700 [facility] Last Admin: 05/07/18 05:08 Dose: 1 applic Diltiazem HCl (Cardizem) 30 mg PO QID [facility] Last Admin: 05/07/18 13:05 Dose: 30 mg Dimethicone (Proshield Plus Skin Protectant) 1 applic TOP Q12@0500,1700 [facility] Last Admin: 05/07/18 05:00 Dose: 1 applic Enoxaparin Sodium (Lovenox) 40 mg SC DAILY [facility] PRN Reason: Protocol Last Admin: 05/07/18 08:48 Dose: 40 mg Fluconazole (Diflucan Iv 200 Mg/100 Ml Ns) 100 mls @ 100 mls/hr IVPB DAILY@ 1700 [facility] PRN Reason: Protocol Last Admin: 05/06/18 17:01 Dose: 100 mls/hr Meropenem 1 gm/ Sodium (Chloride) 100 mls @ 100 mls/hr IVPB Q8@0400,1200,2000 [facility] PRN Reason: Protocol Last Admin: 05/07/18 13:04 Dose: 100 mls/hr Insulin Human Lispro (Humalog) 0 units SC ACHS [facility] PRN Reason: Protocol Last Admin: 05/07/18 11:34 Dose: Not Given Losartan Potassium (Cozaar) 50 mg PO DAILY [facility] Last Admin: 05/07/18 08:51 Dose: 50 mg Miconazole (Monistat 7 Vag Suppository) 100 mg [facility] Nystatin (Nystop Topical Powder) 1 applic TOP TID@0900,1300,2100 [facility] Last Admin: 05/07/18 13:29 Dose: 1 appl Olopatadine HCl (Patanol 0.1% Opht Soln) 1 drop OU DAILY [facility] Last Admin: 05/07/18 09:29 Dose: 1 drop Ondansetron HCl (Zofran Odt) 4 mg PO Q6 PRN PRN Reason: Nausea/Vomiting Last Admin: 04/25/18 09:24 Dose: 4 mg Pantoprazole Sodium (Protonix Ec Tab) 40 mg PO DAILY [facility] Last Admin: 05/07/18 08:51 Dose: 40 mg Saccharomyces Boulardii (Florastor) 250 mg PO BID [facility] Last Admin: 05/07/18 08:48 Dose: 250 mg Senna/Docusate Sodium (Senokot S 50 Mg-8.6 Mg) 1 tab PO HS [facility] Last Admin: 05/06/18 21:19 Dose: 1 tab Simethicone (Mylicon Chew Tab) 80 mg PO QID PRN PRN Reason: Flatulence Last Admin: 05/05/18 21:26 Dose: 80 mg - Labs Labs: 05/04/18 05:50 05/04/18 05:50 PT 15.7 Seconds (9.8-13.1) H 04/18/18 05:20 INR 1.4 (0.9-1.2) H 04/18/18 05:20 APTT 35.4 Seconds (25.6-37.1) 04/18/18 05:20 - Constitutional Appears: No Acute Distress - Head Exam Head Exam: ATRAUMATIC - Eye Exam Eye Exam: absent: Scleral icterus - ENT Exam ENT Exam: Mucous Membranes Moist - Neck Exam Neck Exam: absent: Meningismus - Respiratory Exam Respiratory Exam: absent: Rales, Rhonchi, Wheezes, Respiratory Distress - Cardiovascular Exam Cardiovascular Exam: REGULAR RHYTHM, +S1, +S2 - GI/Abdominal Exam GI & Abdominal Exam: Soft. absent: Tenderness Additional comments: colostomy intact, no sign of infection - Rectal Exam Rectal Exam: Deferred - Neurological Exam Neurological Exam: Alert, Oriented x3 - Psychiatric Exam Psychiatric exam: Normal Affect - Skin Skin Exam: Dry, Intact Assessment and Plan - Assessment and Plan (Free Text) Assessment: 87 yo female with history of CHF, COPD, AFib, HTN, DM2 and Hypothyroidism had colon resection with colostomy on 02/25/2018 after perforating colon during colonoscopy. Post op days were uneventful and patient was discharged in stable condition 8 days later. A month later patient was brought back because of abdominal pain associated with purulent discharge from the surgical wound. CT scan of abdomen showed large pelvic abscess. Patient was started on IV antibiotics and IR drained the abscess followed with wound vac placement. Repeat CT scan showed reduced pelvic abscess and new recto-vaginal fistula. Patient was transferred to TCU for continuation of IV antibiotic and therapy. 1. Pelvic Abscess and Abdominal Wound Abscess at surgical site wound culture grew Proteus and ESBL E Coli continue Meropenem and Diflucan Dr Garcia on ID consult vaginal itciness and drainage probably secondary fistula formation noted on CT ( 04/15/18) from pelvic abscess to vagina 2. Diabetes mellitus, type II BS controlled continue accuchek ACHS with Lispro coverage 3. CHF, diastolic dysfunction continue Losartan 4. Atrial fibrillation rate controlled continue Cardizem 5. COPD asymptomatic on Duoneb and Pulmicort 6. Hypertension BP stable continue Cardizem and Losartan 7. Hypothyroidism continue Levothyroxine 8. DVT prophylaxis continue Lovenox
[2018-05-07] MEDS: Fluconazole IV 200mg/100 ml NS 100 ML IVPB SCH (16:04)
--- NOTE | 2018-05-07 16:07 | PN ---
DATE: 05/07/2018 SUBJECTIVE: Katie Cook is seen on the floor in the TCU at [place]. She is much more awake, alert, and oriented. She is speaking, getting out of bed, moving around, in generalized much healthier. She is progressed nicely. The drainage was successful. The wounds are draining a little bit. It is culturing out E. coli and fungus. OBJECTIVE: VITAL SIGNS: She is afebrile. Vital signs are normal. ABDOMEN: Soft. Colostomy is working well. LABORATORY DATA: White count is normal. Glucose is normal. In general, I think she is doing very well. Discussed with her attending. My impression is that there is an open piece of mucosa in the pelvis causing this abscess which I think will recur. We leave the drains in for now. What I would like to do in a healthy vigorous person, would be to do a laparotomy and resect this area of the pelvis, do a primary anastomosis at some other time. I do not believe Ms. Cook at this time would tolerate this, so the conservative watch and wait symptomatic approach is more prudent. I will follow the patient with you. Peter Montaño MD
[2018-05-07 20:07] LABS: URINE BACTERIA RARE (<OCC); URINE BILIRUBIN NEGATIVE (NEGATIVE); URINE BLOOD NEGATIVE (NEGATIVE); URINE CLARITY CLEAR (Clear); URINE COLOR YELLOW (YELLOW); URINE GLUCOSE (UA) NEG (Normal); URINE LEUKOCYTE ESTERASE NEG Leu/uL (Negative); URINE PROTEIN 30 mg/dL (NEGATIVE); URINE UROBILINOGEN 0.2-1.0 mg/dL (0.2-1.0)
[2018-05-07] MEDS: Docusate-Senna 50 mg-8.6 mg Tab PO SCH (21:04)
[2018-05-07] MEDS: Miconazole 100 MG Vaginal Supp VG SCH (21:06)
[2018-05-08] MEDS: Miconazole 2% Vaginal 7 CREAM VAG SCH ×2 (00:09→22:25)
[2018-05-08] MEDS: Meropenem 1 GM in Sodium Chloride 0.9% 100 ML IVPB SCH ×3 (03:55→20:06)
[2018-05-08] MEDS: Desoximetasone 0.25% Cream(15 gm) TOP SCH ×2 (04:01→17:50)
[2018-05-08] MEDS: Proshield Plus GEL TOP SCH ×2 (04:01→17:27)
[2018-05-08] MEDS: Insulin Lispro (humaLOG) 100 Units/ml Inj SC SCH ×4 (06:37→22:12)
[2018-05-08] MEDS: Albuterol-Ipratrop 3 mg / 0.5 (3 ml) UD INH SCH ×5 (07:11→19:20)
[2018-05-08] MEDS: Saccharomyces Boulardi 250 mg Cap PO SCH ×2 (09:39→17:27)
[2018-05-08] MEDS: Olopatadine 0.1% Opht SOLN OU SCH (09:41)
--- NOTE | 2018-05-08 12:32 | CP.PCM.PN ---
Subjective - Date & Time of Evaluation Date of Evaluation: 05/08/18 Time of Evaluation: 07:00 - Subjective Subjective: events noted iv rx renewed consider follow up imaging Objective - Vital Signs/Intake and Output Vital Signs (last 24 hours): Temp Pulse Resp BP Pulse Ox 97.0 F L 90 20 125/71 100 05/08/18 08:19 05/08/18 09:40 05/08/18 08:19 05/08/18 09:40 05/08/18 08:19 - Medications Medications: Current Medications Acetaminophen (Tylenol 325mg Tab) 650 mg PO 0900,2100 PRN PRN Reason: Pain, Mild (1-3) Last Admin: 05/07/18 15:59 Dose: 650 mg Albuterol/Ipratropium (Duoneb 3 Mg/0.5 Mg (3 Ml) Ud) 3 ml INH RQID [facility] Last Admin: 05/08/18 10:59 Dose: Not Given Atorvastatin Calcium (Lipitor) 40 mg PO 2100 [facility] Last Admin: 05/07/18 21:06 Dose: 40 mg Desoximetasone (Topicort 0.25%) 1 ea TOP Q12@0500,1700 [facility] Last Admin: 05/08/18 04:01 Dose: 1 applic Diltiazem HCl (Cardizem) 30 mg PO QID [facility] Last Admin: 05/08/18 09:40 Dose: 30 mg Dimethicone (Proshield Plus Skin Protectant) 1 applic TOP Q12@0500,1700 [facility] Last Admin: 05/08/18 04:01 Dose: 1 applic Fluconazole (Diflucan Iv 200 Mg/100 Ml Ns) 100 mls @ 100 mls/hr IVPB DAILY@ 1700 [facility] PRN Reason: Protocol Last Admin: 05/07/18 16:04 Dose: 100 mls/hr Meropenem 1 gm/ Sodium (Chloride) 100 mls @ 100 mls/hr IVPB Q8@0400,1200,2000 [facility] PRN Reason: Protocol Last Admin: 05/08/18 03:55 Dose: 100 mls/hr Insulin Human Lispro (Humalog) 0 units SC ACHS [facility] PRN Reason: Protocol Last Admin: 05/08/18 06:37 Dose: Not Given Losartan Potassium (Cozaar) 50 mg PO DAILY [facility] Last Admin: 05/08/18 09:40 Dose: 50 mg Miconazole (Monistat 7 Vag Suppository) 100 mg VG HS [facility] Last Admin: 05/07/18 21:06 Dose: 100 mg Miconazole Nitrate (Monistat 7 Vaginal Cream) 1 applic VAG HS [facility] Stop: 05/13/18 22:01 Last Admin: 05/08/18 00:09 Dose: Not Given Nystatin (Nystop Topical Powder) 1 applic TOP TID@0900,1300,2100 [facility] Last Admin: 05/08/18 09:35 Dose: 1 appl Olopatadine HCl (Patanol 0.1% Opht Soln) 1 drop OU DAILY [facility] Last Admin: 05/08/18 09:41 Dose: 1 drop Ondansetron HCl (Zofran Odt) 4 mg PO Q6 PRN PRN Reason: Nausea/Vomiting Last Admin: 04/25/18 09:24 Dose: 4 mg Pantoprazole Sodium (Protonix Ec Tab) 40 mg PO DAILY [facility] Last Admin: 05/07/18 08:51 Dose: 40 mg Saccharomyces Boulardii (Florastor) 250 mg PO BID [facility] Last Admin: 05/08/18 09:39 Dose: 250 mg Simethicone (Mylicon Chew Tab) 80 mg PO QID PRN PRN Reason: Flatulence Last Admin: 05/05/18 21:26 Dose: 80 mg - Labs Labs: 05/04/18 05:50 05/04/18 05:50 PT 15.7 Seconds (9.8-13.1) H 04/18/18 05:20 INR 1.4 (0.9-1.2) H 04/18/18 05:20 APTT 35.4 Seconds (25.6-37.1) 04/18/18 05:20 - Constitutional Appears: Non-toxic, Chronically Ill - Head Exam Head Exam: NORMOCEPHALIC - Eye Exam Eye Exam: absent: Scleral icterus - ENT Exam ENT Exam: Mucous Membranes Dry - Neck Exam Neck Exam: absent: Lymphadenopathy - Respiratory Exam Respiratory Exam: Decreased Breath Sounds - Cardiovascular Exam Cardiovascular Exam: REGULAR RHYTHM - GI/Abdominal Exam GI & Abdominal Exam: Distended - Rectal Exam Rectal Exam: Deferred Assessment and Plan (1) Abdominal wall abscess at site of surgical wound Status: Acute (2) ESBL (extended spectrum beta-lactamase) producing bacteria infection Status: Acute (3) History of ESBL E. coli infection Status: Acute
[2018-05-08] MEDS: Pantoprazole 40 mg EC Tab PO SCH (12:44)
--- NOTE | 2018-05-08 15:16 | CP.PCM.PN ---
Subjective - Date & Time of Evaluation Date of Evaluation: 05/08/18 Time of Evaluation: 15:16 - Subjective Subjective: Continues to gain strength. Appetite is improved. Colostomy functioning well. Abdomen is soft with good BS, non-tender. Breathes comfortably w/o cough. Rare dry rales, no wheezes. Continue present regimen. Imaging next week. Objective - Vital Signs/Intake and Output Vital Signs (last 24 hours): Temp Pulse Resp BP Pulse Ox 97.0 F L 87 20 116/66 100 05/08/18 08:19 05/08/18 12:44 05/08/18 08:19 05/08/18 12:44 05/08/18 08:19 - Medications Medications: Current Medications Acetaminophen (Tylenol 325mg Tab) 650 mg PO 0900,2100 PRN PRN Reason: Pain, Mild (1-3) Last Admin: 05/08/18 15:01 Dose: 650 mg Albuterol/Ipratropium (Duoneb 3 Mg/0.5 Mg (3 Ml) Ud) 3 ml INH RQID [facility] Last Admin: 05/08/18 10:59 Dose: Not Given Atorvastatin Calcium (Lipitor) 40 mg PO 2100 [facility] Last Admin: 05/07/18 21:06 Dose: 40 mg Desoximetasone (Topicort 0.25%) 1 ea TOP Q12@0500,1700 [facility] Last Admin: 05/08/18 04:01 Dose: 1 applic Diltiazem HCl (Cardizem) 30 mg PO QID [facility] Last Admin: 05/08/18 12:44 Dose: 30 mg Dimethicone (Proshield Plus Skin Protectant) 1 applic TOP Q12@0500,1700 [facility] Last Admin: 05/08/18 04:01 Dose: 1 applic Fluconazole (Diflucan Iv 200 Mg/100 Ml Ns) 100 mls @ 100 mls/hr IVPB DAILY@ 1700 [facility] PRN Reason: Protocol Last Admin: 05/07/18 16:04 Dose: 100 mls/hr Meropenem 1 gm/ Sodium (Chloride) 100 mls @ 100 mls/hr IVPB Q8@0400,1200,2000 [facility] PRN Reason: Protocol Last Admin: 05/08/18 12:45 Dose: 100 mls/hr Insulin Human Lispro (Humalog) 0 units SC ACHS [facility] PRN Reason: Protocol Last Admin: 05/08/18 12:43 Dose: 1 unit Losartan Potassium (Cozaar) 50 mg PO DAILY [facility] Last Admin: 05/08/18 09:40 Dose: 50 mg Miconazole (Monistat 7 Vag Suppository) 100 mg VG HS [facility] Last Admin: 05/07/18 21:06 Dose: 100 mg Miconazole Nitrate (Monistat 7 Vaginal Cream) 1 applic VAG HS [facility] Stop: 05/13/18 22:01 Last Admin: 05/08/18 00:09 Dose: Not Given Nystatin (Nystop Topical Powder) 1 applic TOP TID@0900,1300,2100 [facility] Last Admin: 05/08/18 12:46 Dose: 1 appl Olopatadine HCl (Patanol 0.1% Opht Soln) 1 drop OU DAILY [facility] Last Admin: 05/08/18 09:41 Dose: 1 drop Ondansetron HCl (Zofran Odt) 4 mg PO Q6 PRN PRN Reason: Nausea/Vomiting Last Admin: 04/25/18 09:24 Dose: 4 mg Pantoprazole Sodium (Protonix Ec Tab) 40 mg PO DAILY [facility] Last Admin: 05/08/18 12:44 Dose: 40 mg Saccharomyces Boulardii (Florastor) 250 mg PO BID [facility] Last Admin: 05/08/18 09:39 Dose: 250 mg Simethicone (Mylicon Chew Tab) 80 mg PO QID PRN PRN Reason: Flatulence Last Admin: 05/05/18 21:26 Dose: 80 mg - Labs Labs: 05/04/18 05:50 05/04/18 05:50 PT 15.7 Seconds (9.8-13.1) H 04/18/18 05:20 INR 1.4 (0.9-1.2) H 04/18/18 05:20 APTT 35.4 Seconds (25.6-37.1) 04/18/18 05:20 Assessment and Plan (1) Pelvic abscess Status: Acute (2) Anemia Status: Chronic (3) COPD (chronic obstructive pulmonary disease) Status: Chronic
[2018-05-08] MEDS: Fluconazole IV 200mg/100 ml NS 100 ML IVPB SCH (17:26)
[2018-05-08] MEDS: Simethicone 80 mg Chewtab PO PRN (20:04)
[2018-05-08] MEDS: Miconazole 100 MG Vaginal Supp VG SCH (21:42)
[2018-05-09] MEDS: Meropenem 1 GM in Sodium Chloride 0.9% 100 ML IVPB SCH ×3 (04:13→20:24)
[2018-05-09] MEDS: Proshield Plus GEL TOP SCH ×2 (04:15→17:48)
[2018-05-09] MEDS: Desoximetasone 0.25% Cream(15 gm) TOP SCH ×3 (04:16→17:50)
[2018-05-09] MEDS: Insulin Lispro (humaLOG) 100 Units/ml Inj SC SCH ×4 (06:36→22:15)
[2018-05-09] MEDS: Albuterol-Ipratrop 3 mg / 0.5 (3 ml) UD INH SCH ×4 (07:40→19:49)
[2018-05-09 07:46] LABS: BASO # 0.1 K/uL (0.0-0.2); BASO % 1.5 % (0.0-2.0); EOS # 0.8 K/uL (0.0-0.7); EOS % 8.6 % (0.0-4.0); HEMOGLOBIN 11.7 g/dL (12.0-16.0); LYMPH # 3.4 K/uL (1.0-4.3); LYMPH % 38.5 % (20.0-40.0); MEAN CELL VOLUME 92.4 fl (81.0-99.0); MEAN CORPUSCULAR HEMOGLOBIN 31.3 pg (27.0-31.0); MEAN CORPUSCULAR HGB CONC 33.9 g/dL (33.0-37.0); MEAN PLATELET VOLUME 8.2 fl (7.2-11.7); MONO # 0.5 K/uL (0.0-0.8); MONO % 5.2 % (0.0-10.0); NEUT # 4.1 K/uL (1.8-7.0); NEUT % 46.2 % (50.0-75.0); NRBC % 0.1 % (0.0-0.0); RBC 3.74 Mil/uL (3.80-5.20); RED CELL DISTRIBUTION WIDTH 19.8 % (11.5-14.5); WHITE BLOOD COUNT 8.8 K/uL (4.8-10.8)
[2018-05-09 08:04] LABS: ALB/GLOB RATIO 0.8 (1.0-2.1); ALT/SGPT 61 U/L (9-52); AST/SGOT 115 U/L (14-36); BLOOD UREA NITROGEN 10 mg/dl (7-17); CALCIUM 8.7 mg/dL (8.4-10.2); GFR AFRICAN-AMERICAN > 60; GFR NON-AFRICAN AMERICAN > 60
[2018-05-09] MEDS: Saccharomyces Boulardi 250 mg Cap PO SCH ×2 (08:44→17:47)
[2018-05-09] MEDS: Olopatadine 0.1% Opht SOLN OU SCH (08:49)
[2018-05-09] MEDS: Pantoprazole 40 mg EC Tab PO SCH (08:50)
[2018-05-09] MEDS: Simethicone 80 mg Chewtab PO PRN ×2 (12:48→23:57)
[2018-05-09] MEDS: Fluconazole IV 200mg/100 ml NS 100 ML IVPB SCH (17:56)
[2018-05-09] MEDS: Miconazole 2% Vaginal 7 CREAM VAG SCH (22:15)
[2018-05-09] MEDS: Miconazole 100 MG Vaginal Supp VG SCH (22:15)
[2018-05-10] MEDS: Meropenem 1 GM in Sodium Chloride 0.9% 100 ML IVPB SCH ×3 (04:11→22:00)
[2018-05-10] MEDS: Proshield Plus GEL TOP SCH ×2 (04:19→16:50)
[2018-05-10] MEDS: Desoximetasone 0.25% Cream(15 gm) TOP SCH ×2 (04:20→16:50)
[2018-05-10] MEDS: Insulin Lispro (humaLOG) 100 Units/ml Inj SC SCH ×4 (07:06→22:01)
[2018-05-10] MEDS: Albuterol-Ipratrop 3 mg / 0.5 (3 ml) UD INH SCH ×4 (07:19→19:18)
[2018-05-10 07:27] LABS: HEMOGLOBIN 11.5 g/dL (12.0-16.0); MEAN CELL VOLUME 93.8 fl (81.0-99.0); RBC 3.7 Mil/uL (3.80-5.20); RED CELL DISTRIBUTION WIDTH 19.8 % (11.5-14.5); WHITE BLOOD COUNT 8.4 K/uL (4.8-10.8)
[2018-05-10 07:35] LABS: BLOOD UREA NITROGEN 9 mg/dl (7-17); CALCIUM 8.8 mg/dL (8.4-10.2); GFR AFRICAN-AMERICAN > 60; GFR NON-AFRICAN AMERICAN > 60
[2018-05-10] MEDS: Pantoprazole 40 mg EC Tab PO SCH (08:26)
[2018-05-10] MEDS: Saccharomyces Boulardi 250 mg Cap PO SCH ×2 (08:27→16:51)
[2018-05-10] MEDS: Olopatadine 0.1% Opht SOLN OU SCH (12:27)
[2018-05-10] MEDS: Fluconazole IV 200mg/100 ml NS 100 ML IVPB SCH (17:54)
[2018-05-10] MEDS: Miconazole 100 MG Vaginal Supp VG SCH (22:00)
[2018-05-10] MEDS: Miconazole 2% Vaginal 7 CREAM VAG SCH (22:00)
[2018-05-11] MEDS: Meropenem 1 GM in Sodium Chloride 0.9% 100 ML IVPB SCH ×3 (04:58→20:33)
[2018-05-11] MEDS: Proshield Plus GEL TOP SCH ×2 (05:00→17:17)
[2018-05-11] MEDS: Desoximetasone 0.25% Cream(15 gm) TOP SCH ×2 (05:02→17:17)
[2018-05-11] MEDS: Albuterol-Ipratrop 3 mg / 0.5 (3 ml) UD INH SCH ×4 (07:22→19:08)
[2018-05-11] MEDS ORDERED: Iohexol 240 (50 ml) ONE (07:54)
[2018-05-11] MEDS ORDERED: Iohexol 240 (10 ml) PO ONE (08:03)
[2018-05-11] MEDS: Insulin Lispro (humaLOG) 100 Units/ml Inj SC SCH ×4 (08:05→21:34)
[2018-05-11] MEDS ORDERED: Iohexol 240 (50 ml) PO ONE (08:10)
[2018-05-11] MEDS: Olopatadine 0.1% Opht SOLN OU SCH (09:13)
[2018-05-11] MEDS: Pantoprazole 40 mg EC Tab PO SCH (09:14)
[2018-05-11] MEDS: Saccharomyces Boulardi 250 mg Cap PO SCH ×2 (09:14→17:15)
--- NOTE | 2018-05-11 11:26 | CP.PCM.PN ---
<KendellMadhavi corrales - Last Filed: 05/11/18 14:54> Subjective - Date & Time of Evaluation Date of Evaluation: 05/11/18 Time of Evaluation: 07:15 - Subjective Subjective: Patient seen and examined bedside with Dr Sorto. Patient report feeling better today. Denies SOb, chest pain, improving on PT. Colostomy in place. wound with less erythema and less discharge. Continue PT Objective - Vital Signs/Intake and Output Vital Signs (last 24 hours): Temp Pulse Resp BP Pulse Ox 98.1 F 87 20 137/68 99 05/11/18 08:09 05/11/18 08:09 05/11/18 08:09 05/11/18 08:09 05/11/18 08:09 - Medications Medications: Current Medications Acetaminophen (Tylenol 325mg Tab) 650 mg PO 0900,2100 [facility] Last Admin: 05/11/18 09:14 Dose: Not Given Albuterol/Ipratropium (Duoneb 3 Mg/0.5 Mg (3 Ml) Ud) 3 ml INH RQID [facility] Last Admin: 05/11/18 11:19 Dose: Not Given Atorvastatin Calcium (Lipitor) 40 mg PO 2100 [facility] Last Admin: 05/10/18 22:01 Dose: 40 mg Desoximetasone (Topicort 0.25%) 1 ea TOP Q12@0500,1700 [facility] Last Admin: 05/11/18 05:02 Dose: 1 applic Diltiazem HCl (Cardizem) 30 mg PO QID [facility] Last Admin: 05/11/18 09:14 Dose: Not Given Dimethicone (Proshield Plus Skin Protectant) 1 applic TOP Q12@0500,1700 [facility] Last Admin: 05/11/18 05:00 Dose: 1 applic Meropenem 1 gm/ Sodium (Chloride) 100 mls @ 100 mls/hr IVPB Q8@0400,1200,2000 [facility] PRN Reason: Protocol Last Admin: 05/11/18 04:58 Dose: 100 mls/hr FLUCONAZOLE IN DEXTROSE (Fluconazole-Dext 200 Mg/100 Ml) 200 mg in 100 mls @ 100 mls/hr IVPB DAILY@1700 [facility] PRN Reason: Protocol Insulin Human Lispro (Humalog) 0 units SC ACHS [facility] PRN Reason: Protocol Last Admin: 05/11/18 08:05 Dose: Not Given Losartan Potassium (Cozaar) 50 mg PO DAILY [facility] Last Admin: 05/11/18 09:14 Dose: Not Given Miconazole (Monistat 7 Vag Suppository) 100 mg VG HS [facility] Last Admin: 05/10/18 22:00 Dose: 100 mg Miconazole Nitrate (Monistat 7 Vaginal Cream) 1 applic VAG HS [facility] Stop: 05/13/18 22:01 Last Admin: 05/10/18 22:00 Dose: 1 applic Nystatin (Nystop Topical Powder) 1 applic TOP TID@0900,1300,2100 [facility] Last Admin: 05/11/18 09:14 Dose: 1 appl Olopatadine HCl (Patanol 0.1% Opht Soln) 1 drop OU DAILY [facility] Last Admin: 05/11/18 09:13 Dose: 1 drop Ondansetron HCl (Zofran Odt) 4 mg PO Q6 PRN PRN Reason: Nausea/Vomiting Last Admin: 05/10/18 22:10 Dose: 4 mg Pantoprazole Sodium (Protonix Ec Tab) 40 mg PO DAILY [facility] Last Admin: 05/11/18 09:14 Dose: Not Given Saccharomyces Boulardii (Florastor) 250 mg PO BID [facility] Last Admin: 05/11/18 09:14 Dose: Not Given Simethicone (Mylicon Chew Tab) 80 mg PO QID PRN PRN Reason: Flatulence Last Admin: 05/09/18 23:57 Dose: 80 mg - Labs Labs: 05/10/18 05:30 05/10/18 05:30 PT 15.7 Seconds (9.8-13.1) H 04/18/18 05:20 INR 1.4 (0.9-1.2) H 04/18/18 05:20 APTT 35.4 Seconds (25.6-37.1) 04/18/18 05:20 - Constitutional Appears: Non-toxic, No Acute Distress - Head Exam Head Exam: ATRAUMATIC, NORMOCEPHALIC - Eye Exam Eye Exam: Normal appearance - ENT Exam ENT Exam: Mucous Membranes Moist - Respiratory Exam Respiratory Exam: Clear to Ausculation Bilateral, Rales (scattered dry rales lung bases). absent: Rhonchi, Wheezes - Cardiovascular Exam Cardiovascular Exam: REGULAR RHYTHM, +S1, +S2 - GI/Abdominal Exam GI & Abdominal Exam: Soft, Normal Bowel Sounds. absent: Tenderness Additional comments: colostomy LLQ, colostomy bag in place, no colostomy signs of infection. Midline infraumbilical wound with myrna x2 in place. Jaimee-incisional erythema improved - Extremities Exam Extremities Exam: Normal Inspection - Back Exam Back Exam: NORMAL INSPECTION - Neurological Exam Neurological Exam: Alert, Awake, Oriented x3 - Psychiatric Exam Psychiatric exam: Normal Affect - Skin Skin Exam: absent: Cyanosis, Mottled Assessment and Plan (1) COPD (chronic obstructive pulmonary disease) Assessment & Plan: -Continue Duoneb PRN SOB Status: Chronic (2) Pelvic abscess Status: Acute (3) Abdominal wall abscess at site of surgical wound Assessment & Plan: -c/w abx Meropenen Status: Acute <Hemant Sorto - Last Filed: 05/11/18 15:06> Subjective - Subjective Subjective: The patient was seen on rounds with the resident earlier in the morning. Agree with the above findingsand recommendations. Objective - Vital Signs/Intake and Output Vital Signs (last 24 hours): Temp Pulse Resp BP Pulse Ox 98.1 F 87 20 137/68 99 05/11/18 08:09 05/11/18 08:09 05/11/18 08:09 05/11/18 08:09 05/11/18 08:09 - Medications Medications: Current Medications Acetaminophen (Tylenol 325mg Tab) 650 mg PO 0900,2099 [facility] Last Admin: 05/11/18 09:14 Dose: Not Given Albuterol/Ipratropium (Duoneb 3 Mg/0.5 Mg (3 Ml) Ud) 3 ml INH RQID [facility] Last Admin: 05/11/18 11:19 Dose: Not Given Atorvastatin Calcium (Lipitor) 40 mg PO 2100 [facility] Last Admin: 05/10/18 22:01 Dose: 40 mg Desoximetasone (Topicort 0.25%) 1 ea TOP Q12@0500,1700 [facility] Last Admin: 05/11/18 05:02 Dose: 1 applic Diltiazem HCl (Cardizem) 30 mg PO QID [facility] Last Admin: 05/11/18 12:01 Dose: Not Given Dimethicone (Proshield Plus Skin Protectant) 1 applic TOP Q12@0500,1700 [facility] Last Admin: 05/11/18 05:00 Dose: 1 applic Meropenem 1 gm/ Sodium (Chloride) 100 mls @ 100 mls/hr IVPB Q8@0400,1200,2000 [facility] PRN Reason: Protocol Last Admin: 05/11/18 11:55 Dose: 100 mls/hr FLUCONAZOLE IN DEXTROSE (Fluconazole-Dext 200 Mg/100 Ml) 200 mg in 100 mls @ 100 mls/hr IVPB DAILY@1700 [facility] PRN Reason: Protocol Insulin Human Lispro (Humalog) 0 units SC ACHS [facility] PRN Reason: Protocol Last Admin: 05/11/18 11:54 Dose: Not Given Losartan Potassium (Cozaar) 50 mg PO DAILY [facility] Last Admin: 05/11/18 09:14 Dose: Not Given Miconazole (Monistat 7 Vag Suppository) 100 mg VG HS [facility] Last Admin: 05/10/18 22:00 Dose: 100 mg Miconazole Nitrate (Monistat 7 Vaginal Cream) 1 applic VAG HS [facility] Stop: 05/13/18 22:01 Last Admin: 05/10/18 22:00 Dose: 1 applic Nystatin (Nystop Topical Powder) 1 applic TOP TID@0900,1300,2100 [facility] Last Admin: 05/11/18 12:02 Dose: 1 appl Olopatadine HCl (Patanol 0.1% Opht Soln) 1 drop OU DAILY [facility] Last Admin: 05/11/18 09:13 Dose: 1 drop Ondansetron HCl (Zofran Odt) 4 mg PO Q6 PRN PRN Reason: Nausea/Vomiting Last Admin: 05/10/18 22:10 Dose: 4 mg Pantoprazole Sodium (Protonix Ec Tab) 40 mg PO DAILY [facility] Last Admin: 05/11/18 09:14 Dose: Not Given Saccharomyces Boulardii (Florastor) 250 mg PO BID [facility] Last Admin: 05/11/18 09:14 Dose: Not Given Simethicone (Mylicon Chew Tab) 80 mg PO QID PRN PRN Reason: Flatulence Last Admin: 05/09/18 23:57 Dose: 80 mg - Labs Labs: 05/10/18 05:30 05/10/18 05:30 PT 15.7 Seconds (9.8-13.1) H 04/18/18 05:20 INR 1.4 (0.9-1.2) H 04/18/18 05:20 APTT 35.4 Seconds (25.6-37.1) 04/18/18 05:20 Assessment and Plan (1) Pelvic abscess Status: Acute (2) Anemia Status: Chronic (3) COPD (chronic obstructive pulmonary disease) Status: Chronic
[2018-05-11] MEDS ORDERED: Sodium Chloride 0.9% 50 ML IV ONE (12:53)
[2018-05-11] MEDS ORDERED: Iohexol 300 100 ML IJ ONE (12:53)
[2018-05-11] MEDS: FLUCONAZOLE IN DEXTROSE 200 MG/100 ML PIGGYBACK IVPB SCH (17:16)
[2018-05-11] MEDS: Miconazole 2% Vaginal 7 CREAM VAG SCH (21:24)
[2018-05-11] MEDS: Miconazole 100 MG Vaginal Supp VG SCH (21:25)
[2018-05-11] MEDS: Simethicone 80 mg Chewtab PO PRN (22:58)
[2018-05-12] MEDS: Meropenem 1 GM in Sodium Chloride 0.9% 100 ML IVPB SCH ×3 (03:56→21:00)
[2018-05-12] MEDS: Desoximetasone 0.25% Cream(15 gm) TOP SCH ×2 (04:01→16:52)
[2018-05-12] MEDS: Proshield Plus GEL TOP SCH ×2 (04:02→16:51)
[2018-05-12] MEDS: Insulin Lispro (humaLOG) 100 Units/ml Inj SC SCH ×4 (06:50→22:08)
[2018-05-12] MEDS: Albuterol-Ipratrop 3 mg / 0.5 (3 ml) UD INH SCH ×4 (07:16→19:36)
[2018-05-12] MEDS: Saccharomyces Boulardi 250 mg Cap PO SCH ×2 (08:06→16:50)
[2018-05-12] MEDS: Olopatadine 0.1% Opht SOLN OU SCH (08:08)
[2018-05-12] MEDS: Pantoprazole 40 mg EC Tab PO SCH (08:12)
--- NOTE | 2018-05-12 11:00 | CP.PCM.PN ---
Subjective - Date & Time of Evaluation Date of Evaluation: 05/12/18 Time of Evaluation: 07:30 - Subjective Subjective: Patient seen and examined bedside with Dr Sorto sitting on chair, doing PT in the looney. Patient reports doing well with PT and feels more strong to stand up from bed, but still needs assistance. Reports good appetite, 2 BM yesterday. Colostomy in place. wound with less erythema and less discharge. Denies fever, abdominal pain, vaginal discharge, pelvic pain, dysuria. Ct Abd reviewed: noticed improvement in size of pelvic abscess will discuss with ID how more days of abx Objective - Vital Signs/Intake and Output Vital Signs (last 24 hours): Temp Pulse Resp BP Pulse Ox 97.3 F L 76 20 107/54 L 98 05/12/18 08:07 05/12/18 08:07 05/12/18 08:07 05/12/18 08:07 05/12/18 08:07 - Medications Medications: Current Medications Acetaminophen (Tylenol 325mg Tab) 650 mg PO 0900,2100 [facility] Last Admin: 05/12/18 08:05 Dose: 650 mg Albuterol/Ipratropium (Duoneb 3 Mg/0.5 Mg (3 Ml) Ud) 3 ml INH RQID [facility] Last Admin: 05/12/18 07:16 Dose: 3 ml Atorvastatin Calcium (Lipitor) 40 mg PO 2100 [facility] Last Admin: 05/11/18 21:18 Dose: 40 mg Desoximetasone (Topicort 0.25%) 1 ea TOP Q12@0500,1700 [facility] Last Admin: 05/12/18 04:01 Dose: 1 applic Diltiazem HCl (Cardizem) 30 mg PO QID [facility] Last Admin: 05/12/18 08:06 Dose: Not Given Dimethicone (Proshield Plus Skin Protectant) 1 applic TOP Q12@0500,1700 [facility] Last Admin: 05/12/18 04:02 Dose: 1 applic Meropenem 1 gm/ Sodium (Chloride) 100 mls @ 100 mls/hr IVPB Q8@0400,1200,2000 [facility] PRN Reason: Protocol Last Admin: 05/12/18 03:56 Dose: 100 mls/hr FLUCONAZOLE IN DEXTROSE (Fluconazole-Dext 200 Mg/100 Ml) 200 mg in 100 mls @ 100 mls/hr IVPB DAILY@1700 [facility] PRN Reason: Protocol Last Admin: 05/11/18 17:16 Dose: 100 mls/hr Insulin Human Lispro (Humalog) 0 units SC ACHS [facility] PRN Reason: Protocol Last Admin: 05/12/18 06:50 Dose: Not Given Losartan Potassium (Cozaar) 50 mg PO DAILY [facility] Last Admin: 05/12/18 08:07 Dose: 50 mg Miconazole (Monistat 7 Vag Suppository) 100 mg VG HS [facility] Last Admin: 05/11/18 21:25 Dose: 100 mg Miconazole Nitrate (Monistat 7 Vaginal Cream) 1 applic VAG HS [facility] Stop: 05/13/18 22:01 Last Admin: 05/11/18 21:24 Dose: 1 applic Nystatin (Nystop Topical Powder) 1 applic TOP TID@0900,1300,2100 [facility] Last Admin: 05/12/18 08:10 Dose: 1 appl Olopatadine HCl (Patanol 0.1% Opht Soln) 1 drop OU DAILY [facility] Last Admin: 05/12/18 08:08 Dose: 1 drop Ondansetron HCl (Zofran Odt) 4 mg PO Q6 PRN PRN Reason: Nausea/Vomiting Last Admin: 05/10/18 22:10 Dose: 4 mg Pantoprazole Sodium (Protonix Ec Tab) 40 mg PO DAILY [facility] Last Admin: 05/12/18 08:12 Dose: 40 mg Saccharomyces Boulardii (Florastor) 250 mg PO BID [facility] Last Admin: 05/12/18 08:06 Dose: 250 mg Simethicone (Mylicon Chew Tab) 80 mg PO QID PRN PRN Reason: Flatulence Last Admin: 05/11/18 22:58 Dose: 80 mg - Labs Labs: 05/10/18 05:30 05/10/18 05:30 PT 15.7 Seconds (9.8-13.1) H 04/18/18 05:20 INR 1.4 (0.9-1.2) H 04/18/18 05:20 APTT 35.4 Seconds (25.6-37.1) 04/18/18 05:20 - Constitutional Appears: Non-toxic, No Acute Distress - Head Exam Head Exam: ATRAUMATIC, NORMOCEPHALIC - Eye Exam Eye Exam: Normal appearance - ENT Exam ENT Exam: Mucous Membranes Moist - Respiratory Exam Respiratory Exam: Clear to Ausculation Bilateral. absent: Rales, Rhonchi, Wheezes - Cardiovascular Exam Cardiovascular Exam: REGULAR RHYTHM, +S1, +S2 - GI/Abdominal Exam GI & Abdominal Exam: Soft, Normal Bowel Sounds. absent: Tenderness Additional comments: colostomy LLQ, colostomy bag in place, no colostomy signs of infection. Midline infraumbilical wound with myrna x2 in place. Jaimee-incisional erythema improved - Extremities Exam Extremities Exam: Normal Inspection. absent: Pedal Edema - Back Exam Back Exam: NORMAL INSPECTION - Neurological Exam Neurological Exam: Alert, Awake, Oriented x3 - Psychiatric Exam Psychiatric exam: Normal Affect - Skin Skin Exam: Intact Assessment and Plan (1) COPD (chronic obstructive pulmonary disease) Status: Chronic (2) Pelvic abscess Assessment & Plan: Ct Abd reviewed: noticed improvement in size of pelvic abscess. pending final report will discuss with ID how more days of abx Status: Acute (3) Abdominal wall abscess at site of surgical wound Assessment & Plan: -myrna in place, no discharge noticed Status: Acute
[2018-05-12] MEDS: FLUCONAZOLE IN DEXTROSE 200 MG/100 ML PIGGYBACK IVPB SCH (16:49)
--- NOTE | 2018-05-12 16:55 | CP.PCM.PN ---
Subjective - Date & Time of Evaluation Date of Evaluation: 05/12/18 Time of Evaluation: 11:00 - Subjective Subjective: Patient seen and examined. Claimed itching from her vagina had disappeared. Objective - Vital Signs/Intake and Output Vital Signs (last 24 hours): Temp Pulse Resp BP Pulse Ox 98.1 F 94 H 20 129/77 98 05/12/18 16:24 05/12/18 16:24 05/12/18 16:24 05/12/18 16:24 05/12/18 16:24 - Medications Medications: Current Medications Acetaminophen (Tylenol 325mg Tab) 650 mg PO 0900,2100 [facility] Last Admin: 05/12/18 08:05 Dose: 650 mg Albuterol/Ipratropium (Duoneb 3 Mg/0.5 Mg (3 Ml) Ud) 3 ml INH RQID [facility] Last Admin: 05/12/18 15:21 Dose: Not Given Atorvastatin Calcium (Lipitor) 40 mg PO 2100 [facility] Desoximetasone (Topicort 0.25%) 1 ea TOP Q12@0500,1700 [facility] Last Admin: 05/12/18 04:01 Dose: 1 applic Diltiazem HCl (Cardizem) 30 mg PO QID [facility] Last Admin: 05/12/18 12:48 Dose: Not Given Dimethicone (Proshield Plus Skin Protectant) 1 applic TOP Q12@0500,1700 [facility] Last Admin: 05/12/18 04:02 Dose: 1 applic Meropenem 1 gm/ Sodium (Chloride) 100 mls @ 100 mls/hr IVPB Q8@0400,1200,2000 [facility] PRN Reason: Protocol Last Admin: 05/12/18 12:47 Dose: 100 mls/hr FLUCONAZOLE IN DEXTROSE (Fluconazole-Dext 200 Mg/100 Ml) 200 mg in 100 mls @ 100 mls/hr IVPB DAILY@1700 [facility] PRN Reason: Protocol Last Admin: 05/11/18 17:16 Dose: 100 mls/hr Insulin Human Lispro (Humalog) 0 units SC ACHS [facility] PRN Reason: Protocol Last Admin: 05/12/18 11:30 Dose: Not Given Losartan Potassium (Cozaar) 50 mg PO DAILY [facility] Last Admin: 05/12/18 08:07 Dose: 50 mg Miconazole (Monistat 7 Vag Suppository) 100 mg VG HS [facility] Last Admin: 05/11/18 21:25 Dose: 100 mg Miconazole Nitrate (Monistat 7 Vaginal Cream) 1 applic VAG HS [facility] Stop: 05/13/18 22:01 Last Admin: 05/11/18 21:24 Dose: 1 applic Nystatin (Nystop Topical Powder) 1 applic TOP TID@0900,1300,2100 [facility] Last Admin: 05/12/18 12:52 Dose: 1 appl Olopatadine HCl (Patanol 0.1% Opht Soln) 1 drop OU DAILY [facility] Last Admin: 05/12/18 08:08 Dose: 1 drop Ondansetron HCl (Zofran Odt) 4 mg PO Q6 PRN PRN Reason: Nausea/Vomiting Last Admin: 05/10/18 22:10 Dose: 4 mg Pantoprazole Sodium (Protonix Ec Tab) 40 mg PO DAILY [facility] Last Admin: 05/12/18 08:12 Dose: 40 mg Saccharomyces Boulardii (Florastor) 250 mg PO BID [facility] Last Admin: 05/12/18 08:06 Dose: 250 mg Simethicone (Mylicon Chew Tab) 80 mg PO QID PRN PRN Reason: Flatulence Last Admin: 05/11/18 22:58 Dose: 80 mg - Labs Labs: 05/10/18 05:30 05/10/18 05:30 PT 15.7 Seconds (9.8-13.1) H 04/18/18 05:20 INR 1.4 (0.9-1.2) H 04/18/18 05:20 APTT 35.4 Seconds (25.6-37.1) 04/18/18 05:20 - Constitutional Appears: No Acute Distress - Head Exam Head Exam: ATRAUMATIC - Eye Exam Eye Exam: absent: Scleral icterus - ENT Exam ENT Exam: Mucous Membranes Moist - Neck Exam Neck Exam: absent: Meningismus - Respiratory Exam Respiratory Exam: absent: Rales, Rhonchi, Wheezes, Respiratory Distress - Cardiovascular Exam Cardiovascular Exam: REGULAR RHYTHM, +S1, +S2 - GI/Abdominal Exam GI & Abdominal Exam: Soft. absent: Tenderness Additional comments: colostomy intact. 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 Post op days were uneventful and patient was discharged in stable condition 8 days later. A month later patient was brought back because of abdominal pain associated with purulent discharge from the surgical wound. CT scan of abdomen showed large pelvic abscess. Patient was started on IV antibiotics and IR drained the abscess followed with wound vac placement. Repeat CT scan showed reduced pelvic abscess and new recto-vaginal fistula. Patient was transferred to TCU for continuation of IV antibiotic and therapy. 1. Pelvic Abscess and Abdominal Wound Abscess at surgical site wound culture grew Proteus and ESBL E Coli continue Meropenem and Diflucan Dr Garcia on ID consult 2. Diabetes mellitus, type II BS controlled continue accuchek ACHS with Lispro coverage 3. CHF, diastolic dysfunction continue Losartan 4. Atrial fibrillation rate controlled continue Cardizem 5. COPD asymptomatic on Duoneb and Pulmicort 6. Hypertension BP stable continue Cardizem and Losartan 7. Hypothyroidism continue Levothyroxine 8. DVT prophylaxis continue Lovenox
[2018-05-12] MEDS: Miconazole 100 MG Vaginal Supp VG SCH (21:46)
[2018-05-12] MEDS: Miconazole 2% Vaginal 7 CREAM VAG SCH (21:47)
[2018-05-13] MEDS: Meropenem 1 GM in Sodium Chloride 0.9% 100 ML IVPB SCH ×3 (04:46→21:00)
[2018-05-13] MEDS: Proshield Plus GEL TOP SCH ×2 (06:11→16:35)
[2018-05-13] MEDS: Desoximetasone 0.25% Cream(15 gm) TOP SCH ×2 (06:12→16:35)
[2018-05-13] MEDS: Insulin Lispro (humaLOG) 100 Units/ml Inj SC SCH ×4 (06:52→22:00)
[2018-05-13] MEDS: Albuterol-Ipratrop 3 mg / 0.5 (3 ml) UD INH SCH ×4 (08:05→19:33)
[2018-05-13] MEDS: Olopatadine 0.1% Opht SOLN OU SCH (08:38)
[2018-05-13] MEDS: Saccharomyces Boulardi 250 mg Cap PO SCH ×2 (08:38→16:38)
[2018-05-13] MEDS: Pantoprazole 40 mg EC Tab PO SCH (08:41)
[2018-05-13] MEDS: FLUCONAZOLE IN DEXTROSE 200 MG/100 ML PIGGYBACK IVPB SCH (16:35)
[2018-05-13] MEDS: Miconazole 100 MG Vaginal Supp VG SCH (21:58)
[2018-05-13] MEDS: Miconazole 2% Vaginal 7 CREAM VAG SCH (21:59)
[2018-05-14] MEDS: Meropenem 1 GM in Sodium Chloride 0.9% 100 ML IVPB SCH (05:01)
[2018-05-14] MEDS: Levothyroxine 175 MCG TAB PO SCH (05:35)
[2018-05-14] MEDS: Proshield Plus GEL TOP SCH ×2 (05:36→16:39)
[2018-05-14] MEDS: Desoximetasone 0.25% Cream(15 gm) TOP SCH ×2 (05:36→16:39)
[2018-05-14] MEDS: Insulin Lispro (humaLOG) 100 Units/ml Inj SC SCH ×4 (06:59→22:04)
[2018-05-14] MEDS: Albuterol-Ipratrop 3 mg / 0.5 (3 ml) UD INH SCH ×4 (07:22→19:10)
[2018-05-14] MEDS: Enoxaparin 40 mg Syringe SC SCH (08:44)
[2018-05-14] MEDS: Saccharomyces Boulardi 250 mg Cap PO SCH ×2 (08:45→16:37)
[2018-05-14] MEDS: Olopatadine 0.1% Opht SOLN OU SCH (08:47)
[2018-05-14] MEDS: Pantoprazole 40 mg EC Tab PO SCH (08:57)
--- NOTE | 2018-05-14 11:18 | CP.PCM.PN ---
Subjective - Date & Time of Evaluation Date of Evaluation: 05/14/18 Time of Evaluation: 07:35 - Subjective Subjective: Patient seen and examined bedside with Dr Sorto today. Patient improving with Physical therapy. Denies abdominal pain, pelvic pain, fever, dysuria. Colostomy bag in place. 1 BM noted on colostomy bag. Abdominal wall wound with dressing with mild yellowish discharge and myrna drainage. Patient reports left knee pain lateral sided intermittent, and unstability while walking. Reports she was prescribed a knee brace in the past but she never received it. Will consult purchasing associate. Consulted ID. Abx discontinued today. Objective - Vital Signs/Intake and Output Vital Signs (last 24 hours): Temp Pulse Resp BP Pulse Ox 98.1 F 83 20 132/71 97 05/14/18 09:23 05/14/18 09:23 05/14/18 09:23 05/14/18 09:23 05/14/18 09:23 - Medications Medications: Current Medications Acetaminophen (Tylenol 325mg Tab) 650 mg PO 0900,2100 [facility] Last Admin: 05/14/18 08:43 Dose: 650 mg Albuterol/Ipratropium (Duoneb 3 Mg/0.5 Mg (3 Ml) Ud) 3 ml INH RQID [facility] Last Admin: 05/14/18 11:11 Dose: Not Given Atorvastatin Calcium (Lipitor) 40 mg PO 2100 [facility] Last Admin: 05/13/18 21:53 Dose: 40 mg Desoximetasone (Topicort 0.25%) 1 ea TOP Q12@0500,1700 [facility] Last Admin: 05/14/18 05:36 Dose: 1 applic Diltiazem HCl (Cardizem) 30 mg PO QID [facility] Last Admin: 05/14/18 08:45 Dose: 30 mg Dimethicone (Proshield Plus Skin Protectant) 1 applic TOP Q12@0500,1700 [facility] Last Admin: 05/14/18 05:36 Dose: 1 applic Enoxaparin Sodium (Lovenox) 40 mg SC DAILY [facility] PRN Reason: Protocol Last Admin: 05/14/18 08:44 Dose: 40 mg Meropenem 1 gm/ Sodium (Chloride) 100 mls @ 100 mls/hr IVPB Q8@0400,1200,2000 [facility] PRN Reason: Protocol Last Admin: 05/14/18 05:01 Dose: 100 mls/hr FLUCONAZOLE IN DEXTROSE (Fluconazole-Dext 200 Mg/100 Ml) 200 mg in 100 mls @ 100 mls/hr IVPB DAILY@1700 [facility] PRN Reason: Protocol Last Admin: 05/13/18 16:35 Dose: 100 mls/hr Insulin Human Lispro (Humalog) 0 units SC ACHS [facility] PRN Reason: Protocol Last Admin: 05/14/18 06:59 Dose: Not Given Levothyroxine Sodium (Synthroid) 175 mcg PO DAILY@0630 [facility] Last Admin: 05/14/18 05:35 Dose: 175 mcg Losartan Potassium (Cozaar) 50 mg PO DAILY [facility] Last Admin: 05/14/18 08:45 Dose: 50 mg Miconazole (Monistat 7 Vag Suppository) 100 mg VG HS [facility] Last Admin: 05/13/18 21:58 Dose: 100 mg Nystatin (Nystop Topical Powder) 1 applic TOP TID@0900,1300,2100 [facility] Last Admin: 05/14/18 08:46 Dose: 1 appl Olopatadine HCl (Patanol 0.1% Opht Soln) 1 drop OU DAILY [facility] Last Admin: 05/14/18 08:47 Dose: 1 drop Ondansetron HCl (Zofran Odt) 4 mg PO Q6 PRN PRN Reason: Nausea/Vomiting Last Admin: 05/10/18 22:10 Dose: 4 mg Pantoprazole Sodium (Protonix Ec Tab) 40 mg PO DAILY [facility] Last Admin: 05/14/18 08:57 Dose: 40 mg Saccharomyces Boulardii (Florastor) 250 mg PO BID [facility] Last Admin: 05/14/18 08:45 Dose: 250 mg Simethicone (Mylicon Chew Tab) 80 mg PO QID PRN PRN Reason: Flatulence Last Admin: 05/11/18 22:58 Dose: 80 mg - Labs Labs: 05/10/18 05:30 05/10/18 05:30 PT 15.7 Seconds (9.8-13.1) H 04/18/18 05:20 INR 1.4 (0.9-1.2) H 04/18/18 05:20 APTT 35.4 Seconds (25.6-37.1) 04/18/18 05:20 - Constitutional Appears: Non-toxic, No Acute Distress - Eye Exam Eye Exam: Normal appearance - ENT Exam ENT Exam: Mucous Membranes Moist - Respiratory Exam Respiratory Exam: Clear to Ausculation Bilateral. absent: Rales, Rhonchi - Cardiovascular Exam Cardiovascular Exam: REGULAR RHYTHM, +S1, +S2 - GI/Abdominal Exam GI & Abdominal Exam: Soft, Normal Bowel Sounds Additional comments: colostomy LLQ, colostomy bag in place, no colostomy signs of infection. Midline infraumbilical wound with myrna x2 in place. Jaimee-incisional erythema improved, minimal yellowish discharge noticed - Extremities Exam Extremities Exam: Normal Inspection. absent: Pedal Edema Additional comments: Left knee TD to palpation lateral joint line - Neurological Exam Neurological Exam: Alert, Awake - Psychiatric Exam Psychiatric exam: Normal Affect, Normal Mood - Skin Skin Exam: absent: Petechiae, Rash Assessment and Plan (1) COPD (chronic obstructive pulmonary disease) Assessment & Plan: -controlled Status: Chronic (2) Pelvic abscess Assessment & Plan: Ct Abd reviewed: Decreased in size of culc de sac cavity about 40 % The cavity is contiguous with the vaginal cuff and pelvic loops of small bowel as well as the rectal suture line. Abx discontinued as per ID Status: Acute (3) Abdominal wall abscess at site of surgical wound Assessment & Plan: -myrna in place, mild yellowish discharge noticed Status: Acute
--- NOTE | 2018-05-14 15:55 | CP.PCM.PN ---
Subjective - Date & Time of Evaluation Date of Evaluation: 05/14/18 Time of Evaluation: 11:30 - Subjective Subjective: Patient seen and examined. Complained again of vaginal itchiness but denied any discharge at this time Objective - Vital Signs/Intake and Output Vital Signs (last 24 hours): Temp Pulse Resp BP Pulse Ox 98.1 F 92 H 20 120/67 97 05/14/18 09:23 05/14/18 12:56 05/14/18 09:23 05/14/18 12:56 05/14/18 09:23 - Medications Medications: Current Medications Acetaminophen (Tylenol 325mg Tab) 650 mg PO 0900,2100 [facility] Last Admin: 05/14/18 08:43 Dose: 650 mg Albuterol/Ipratropium (Duoneb 3 Mg/0.5 Mg (3 Ml) Ud) 3 ml INH RQID [facility] Last Admin: 05/14/18 15:24 Dose: 3 ml Atorvastatin Calcium (Lipitor) 40 mg PO 2100 [facility] Last Admin: 05/13/18 21:53 Dose: 40 mg Desoximetasone (Topicort 0.25%) 1 ea TOP Q12@0500,1700 [facility] Last Admin: 05/14/18 05:36 Dose: 1 applic Diltiazem HCl (Cardizem) 30 mg PO QID [facility] Last Admin: 05/14/18 12:56 Dose: 30 mg Dimethicone (Proshield Plus Skin Protectant) 1 applic TOP Q12@0500,1700 [facility] Last Admin: 05/14/18 05:36 Dose: 1 applic Enoxaparin Sodium (Lovenox) 40 mg SC DAILY [facility] PRN Reason: Protocol Last Admin: 05/14/18 08:44 Dose: 40 mg Insulin Human Lispro (Humalog) 0 units SC ACHS [facility] PRN Reason: Protocol Last Admin: 05/14/18 11:45 Dose: 1 unit Levothyroxine Sodium (Synthroid) 175 mcg PO DAILY@0630 [facility] Last Admin: 05/14/18 05:35 Dose: 175 mcg Losartan Potassium (Cozaar) 25 mg PO DAILY [facility] Miconazole (Monistat 7 Vag Suppository) 100 mg VG HS [facility] Last Admin: 05/13/18 21:58 Dose: 100 mg Nystatin (Nystop Topical Powder) 1 applic TOP TID@0900,1300,2100 [facility] Last Admin: 05/14/18 12:58 Dose: 1 appl Olopatadine HCl (Patanol 0.1% Opht Soln) 1 drop OU DAILY [facility] Last Admin: 05/14/18 08:47 Dose: 1 drop Ondansetron HCl (Zofran Odt) 4 mg PO Q6 PRN PRN Reason: Nausea/Vomiting Last Admin: 05/10/18 22:10 Dose: 4 mg Pantoprazole Sodium (Protonix Ec Tab) 40 mg PO DAILY [facility] Last Admin: 05/14/18 08:57 Dose: 40 mg Saccharomyces Boulardii (Florastor) 250 mg PO BID [facility] Last Admin: 05/14/18 08:45 Dose: 250 mg Simethicone (Mylicon Chew Tab) 80 mg PO QID PRN PRN Reason: Flatulence Last Admin: 05/11/18 22:58 Dose: 80 mg - Labs Labs: 05/10/18 05:30 05/10/18 05:30 PT 15.7 Seconds (9.8-13.1) H 04/18/18 05:20 INR 1.4 (0.9-1.2) H 04/18/18 05:20 APTT 35.4 Seconds (25.6-37.1) 04/18/18 05:20 - Constitutional Appears: No Acute Distress - Head Exam Head Exam: ATRAUMATIC - Eye Exam Eye Exam: absent: Scleral icterus - ENT Exam ENT Exam: Mucous Membranes Moist - Neck Exam Neck Exam: absent: Meningismus - Respiratory Exam Respiratory Exam: absent: Rales, Rhonchi, Wheezes, Respiratory Distress - Cardiovascular Exam Cardiovascular Exam: REGULAR RHYTHM, +S1, +S2 - GI/Abdominal Exam GI & Abdominal Exam: Soft. absent: Tenderness - Rectal Exam Rectal Exam: Deferred - Neurological Exam Neurological Exam: Alert, Oriented x3 - Psychiatric Exam Psychiatric exam: Normal Affect - Skin Skin Exam: Dry, Intact Assessment and Plan - Assessment and Plan (Free Text) Assessment: 87 yo female with history of CHF, COPD, AFib, HTN, DM2 and Hypothyroidism had colon resection with colostomy on 02/25/2018 after perforating colon during colonoscopy. Post op days were uneventful and patient was discharged in stable condition 8 days later. A month later patient was brought back because of abdominal pain associated with purulent discharge from the surgical wound. CT scan of abdomen showed large pelvic abscess. Patient was started on IV antibiotics and IR drained the abscess followed with wound vac placement. Repeat CT scan showed reduced pelvic abscess and new recto-vaginal fistula. Patient was transferred to TCU for continuation of IV antibiotic and therapy. 1. Pelvic Abscess and Abdominal Wound Abscess at surgical site wound culture grew Proteus and ESBL E Coli off antibiotics per ID recommendation Dr Garcia on ID consult 2. Diabetes mellitus, type II BS controlled continue accuchek ACHS with Lispro coverage 3. CHF, diastolic dysfunction continue Losartan 4. Atrial fibrillation rate controlled continue Cardizem 5. COPD asymptomatic on Duoneb and Pulmicort 6. Hypertension BP stable continue Cardizem and Losartan 7. Hypothyroidism continue Levothyroxine 8. DVT prophylaxis continue Lovenox
[2018-05-14] MEDS: Miconazole 100 MG Vaginal Supp VG SCH (21:09)
[2018-05-15] MEDS: Desoximetasone 0.25% Cream(15 gm) TOP SCH ×2 (05:43→16:46)
[2018-05-15] MEDS: Proshield Plus GEL TOP SCH ×2 (05:44→16:46)
[2018-05-15] MEDS: Levothyroxine 175 MCG TAB PO SCH (05:45)
[2018-05-15] MEDS: Insulin Lispro (humaLOG) 100 Units/ml Inj SC SCH ×4 (06:51→22:57)
--- NOTE | 2018-05-15 08:03 | CP.PCM.PN ---
Subjective - Date & Time of Evaluation Date of Evaluation: 05/15/18 Objective - Vital Signs/Intake and Output Vital Signs (last 24 hours): Temp Pulse Resp BP Pulse Ox 98.1 F 84 20 118/73 99 05/14/18 20:42 05/14/18 21:07 05/14/18 20:42 05/14/18 21:07 05/14/18 21:07 - Medications Medications: Current Medications Acetaminophen (Tylenol 325mg Tab) 650 mg PO 0900,2100 [facility] Last Admin: 05/14/18 21:06 Dose: 650 mg Albuterol/Ipratropium (Duoneb 3 Mg/0.5 Mg (3 Ml) Ud) 3 ml INH RQID [facility] Last Admin: 05/14/18 19:10 Dose: 3 ml Atorvastatin Calcium (Lipitor) 40 mg PO 2100 [facility] Last Admin: 05/14/18 21:04 Dose: 40 mg Desoximetasone (Topicort 0.25%) 1 ea TOP Q12@0500,1700 [facility] Last Admin: 05/15/18 05:43 Dose: 1 applic Diltiazem HCl (Cardizem) 30 mg PO QID [facility] Last Admin: 05/14/18 21:07 Dose: 30 mg Dimethicone (Proshield Plus Skin Protectant) 1 applic TOP Q12@0500,1700 [facility] Last Admin: 05/15/18 05:44 Dose: 1 applic Enoxaparin Sodium (Lovenox) 40 mg SC DAILY [facility] PRN Reason: Protocol Last Admin: 05/14/18 08:44 Dose: 40 mg Insulin Human Lispro (Humalog) 0 units SC [facility] PRN Reason: Protocol Last Admin: 05/15/18 06:51 Dose: Not Given Levothyroxine Sodium (Synthroid) 175 mcg PO DAILY@0630 [facility] Last Admin: 05/15/18 05:45 Dose: 175 mcg Losartan Potassium (Cozaar) 25 mg PO DAILY [facility] Miconazole (Monistat 7 Vag Suppository) 100 mg VG HS [facility] Last Admin: 05/14/18 21:09 Dose: 100 mg Nystatin (Nystop Topical Powder) 1 applic TOP TID@0900,1300,2100 [facility] Last Admin: 05/14/18 21:03 Dose: 1 appl Olopatadine HCl (Patanol 0.1% Opht Soln) 1 drop OU DAILY [facility] Last Admin: 05/14/18 08:47 Dose: 1 drop Ondansetron HCl (Zofran Odt) 4 mg PO Q6 PRN PRN Reason: Nausea/Vomiting Last Admin: 05/10/18 22:10 Dose: 4 mg Pantoprazole Sodium (Protonix Ec Tab) 40 mg PO DAILY [facility] Last Admin: 05/14/18 08:57 Dose: 40 mg Saccharomyces Boulardii (Florastor) 250 mg PO BID [facility] Last Admin: 05/14/18 16:37 Dose: 250 mg Simethicone (Mylicon Chew Tab) 80 mg PO QID PRN PRN Reason: Flatulence Last Admin: 05/11/18 22:58 Dose: 80 mg - Labs Labs: 05/10/18 05:30 05/10/18 05:30 PT 15.7 Seconds (9.8-13.1) H 04/18/18 05:20 INR 1.4 (0.9-1.2) H 04/18/18 05:20 APTT 35.4 Seconds (25.6-37.1) 04/18/18 05:20 - Constitutional Appears: Well, Non-toxic, No Acute Distress - Head Exam Head Exam: ATRAUMATIC, NORMAL INSPECTION, NORMOCEPHALIC - Eye Exam Eye Exam: EOMI, Normal appearance, PERRL Pupil Exam: NORMAL ACCOMODATION, PERRL - ENT Exam ENT Exam: Mucous Membranes Moist, Normal Exam - Neck Exam Neck Exam: Full ROM, Normal Inspection - Respiratory Exam Respiratory Exam: Clear to Ausculation Bilateral, NORMAL BREATHING PATTERN - Cardiovascular Exam Cardiovascular Exam: REGULAR RHYTHM, +S2 - GI/Abdominal Exam GI & Abdominal Exam: Soft, Normal Bowel Sounds (Colostomy bag noted on the LLQ, No erythema, tenderness). absent: Tenderness - Rectal Exam Rectal Exam: NORMAL INSPECTION - Extremities Exam Extremities Exam: Full ROM, Normal Capillary Refill, Normal Inspection - Back Exam Back Exam: NORMAL INSPECTION - Neurological Exam Neurological Exam: Alert, Awake, CN II-XII Intact, Normal Gait, Oriented x3 - Psychiatric Exam Psychiatric exam: Normal Affect, Normal Mood - Skin Skin Exam: Dry, Intact, Normal Color, Warm
--- NOTE | 2018-05-15 08:09 | CP.PCM.PN ---
Subjective - Date & Time of Evaluation Date of Evaluation: 05/15/18 Time of Evaluation: 10:00 - Subjective Subjective: pt seen and examined with Dr. bocanegra. Pt was laying down comfortable and no acute distress. pt have no complain today. She have no fever, chills, nausea, vomit, diarrhea, chest pain, SOB, abdominal pain, dysuria, polyuria. she is improving with physical therapy and want to go home to see her husbend. Objective - Vital Signs/Intake and Output Vital Signs (last 24 hours): Temp Pulse Resp BP Pulse Ox 98.1 F 84 20 118/73 99 05/14/18 20:42 05/14/18 21:07 05/14/18 20:42 05/14/18 21:07 05/14/18 21:07 - Medications Medications: Current Medications Acetaminophen (Tylenol 325mg Tab) 650 mg PO 0900,2100 [facility] Last Admin: 05/14/18 21:06 Dose: 650 mg Albuterol/Ipratropium (Duoneb 3 Mg/0.5 Mg (3 Ml) Ud) 3 ml INH RQID [facility] Last Admin: 05/14/18 19:10 Dose: 3 ml Atorvastatin Calcium (Lipitor) 40 mg PO 2100 [facility] Last Admin: 05/14/18 21:04 Dose: 40 mg Desoximetasone (Topicort 0.25%) 1 ea TOP Q12@0500,1700 [facility] Last Admin: 05/15/18 05:43 Dose: 1 applic Diltiazem HCl (Cardizem) 30 mg PO QID [facility] Last Admin: 05/14/18 21:07 Dose: 30 mg Dimethicone (Proshield Plus Skin Protectant) 1 applic TOP Q12@0500,1700 [facility] Last Admin: 05/15/18 05:44 Dose: 1 applic Enoxaparin Sodium (Lovenox) 40 mg SC DAILY [facility] PRN Reason: Protocol Last Admin: 05/14/18 08:44 Dose: 40 mg Insulin Human Lispro (Humalog) 0 units SC ACHS [facility] PRN Reason: Protocol Last Admin: 05/15/18 06:51 Dose: Not Given Levothyroxine Sodium (Synthroid) 175 mcg PO DAILY@0630 [facility] Last Admin: 05/15/18 05:45 Dose: 175 mcg Losartan Potassium (Cozaar) 25 mg PO DAILY [facility] Miconazole (Monistat 7 Vag Suppository) 100 mg VG HS [facility] Last Admin: 05/14/18 21:09 Dose: 100 mg Nystatin (Nystop Topical Powder) 1 applic TOP TID@0900,1300,2100 [facility] Last Admin: 05/14/18 21:03 Dose: 1 appl Olopatadine HCl (Patanol 0.1% Opht Soln) 1 drop OU DAILY [facility] Last Admin: 05/14/18 08:47 Dose: 1 drop Ondansetron HCl (Zofran Odt) 4 mg PO Q6 PRN PRN Reason: Nausea/Vomiting Last Admin: 05/10/18 22:10 Dose: 4 mg Pantoprazole Sodium (Protonix Ec Tab) 40 mg PO DAILY [facility] Last Admin: 05/14/18 08:57 Dose: 40 mg Saccharomyces Boulardii (Florastor) 250 mg PO BID [facility] Last Admin: 05/14/18 16:37 Dose: 250 mg Simethicone (Mylicon Chew Tab) 80 mg PO QID PRN PRN Reason: Flatulence Last Admin: 05/11/18 22:58 Dose: 80 mg - Labs Labs: 05/10/18 05:30 05/10/18 05:30 PT 15.7 Seconds (9.8-13.1) H 04/18/18 05:20 INR 1.4 (0.9-1.2) H 04/18/18 05:20 APTT 35.4 Seconds (25.6-37.1) 04/18/18 05:20 - Constitutional Appears: Well, Non-toxic, No Acute Distress - Head Exam Head Exam: ATRAUMATIC, NORMAL INSPECTION, NORMOCEPHALIC - Eye Exam Eye Exam: EOMI, Normal appearance, PERRL Pupil Exam: NORMAL ACCOMODATION, PERRL - ENT Exam ENT Exam: Mucous Membranes Moist, Normal Exam - Neck Exam Neck Exam: Full ROM, Normal Inspection - Respiratory Exam Respiratory Exam: Clear to Ausculation Bilateral, NORMAL BREATHING PATTERN. absent: Rales, Rhonchi, Wheezes, Respiratory Distress, Stridor - Cardiovascular Exam Cardiovascular Exam: REGULAR RHYTHM, +S1, +S2 - GI/Abdominal Exam GI & Abdominal Exam: Soft, Normal Bowel Sounds (Colostumy bag noted on LLQ, No erythima, tenderness, or any sign of infection. ) - Extremities Exam Extremities Exam: Full ROM, Normal Capillary Refill, Normal Inspection - Back Exam Back Exam: NORMAL INSPECTION - Neurological Exam Neurological Exam: Alert, Awake, CN II-XII Intact, Oriented x3 - Psychiatric Exam Psychiatric exam: Normal Affect, Normal Mood - Skin Skin Exam: Dry, Intact, Normal Color, Warm Assessment and Plan (1) COPD (chronic obstructive pulmonary disease) Assessment & Plan: controlled Status: Chronic (2) Abdominal wall abscess at site of surgical wound Status: Acute (3) Pelvic abscess Status: Acute
[2018-05-15] MEDS: Saccharomyces Boulardi 250 mg Cap PO SCH ×2 (08:27→16:46)
[2018-05-15] MEDS: Olopatadine 0.1% Opht SOLN OU SCH (08:28)
[2018-05-15] MEDS: Enoxaparin 40 mg Syringe SC SCH (08:28)
[2018-05-15] MEDS: Albuterol-Ipratrop 3 mg / 0.5 (3 ml) UD INH SCH ×4 (08:35→19:11)
[2018-05-15] MEDS: Pantoprazole 40 mg EC Tab PO SCH (08:35)
--- NOTE | 2018-05-15 14:10 | CP.PCM.CON ---
History of Present Illness - History of Present Illness History of Present Illness: Dr Mccormack PMR consultation on Katie Cook, born 1930 who has been admitted to the TCU for ZURDO while recovering from surgery and abdominal wall abscess. She had a colon perforation post colonoscopy. Subsequently underwent colon resection with colostomy on 02/2018. Patient returned to the hospital because of abdominal pain and purulent drainage from surgical wound. CT scan was done and showed large pelvic abscess collection. Surgery, ID and IR were consulted and started on Iv antibiotics. IR drain and wound vac were placed to help with closure of abdominal.Repeat CT abdomen showed decrease in size of abdominal abscess and recto-vaginal fistula.Clinically patient is doing well and now transferred to TCU for continuation of IV antibiotics and Physical therapy Review of Systems - Constitutional Constitutional: absent: Chills - EENT Ears: absent: Ear Pain, Tinnitus, Dizziness Nose/Mouth/Throat: absent: Nasal Congestion - Cardiovascular Cardiovascular: absent: Chest Pain - Respiratory Respiratory: absent: Cough - Gastrointestinal Gastrointestinal: Abdominal Pain. absent: Bloating - Integumentary Integumentary: Other (abdominal incision) Past Patient History - Infectious Disease Hx of Infectious Diseases: None - Tetanus Immunizations Tetanus Immunization: Unknown - Past Medical History & Family History Past Medical History?: Yes - Past Social History Smoking Status: Never Smoked Chewing Tobacco Use: No Cigar Use: No Alcohol: None Drugs: Denies Home Situation {Lives}: With Family (+ elevator) Domestic Violence: Negative - CARDIAC Hx Cardiac Disorders: Yes (AF, ? CAD) Hx Congestive Heart Failure: Yes Hx Hypercholesterolemia: Yes Hx Hypertension: Yes - PULMONARY Hx Chronic Obstructive Pulmonary Disease (COPD): Yes (home O2, asthma, bronchitis) - NEUROLOGICAL Hx Neurological Disorder: No - HEENT Hx HEENT Problems: No - RENAL Hx Chronic Kidney Disease: No - ENDOCRINE/METABOLIC Hx Diabetes Mellitus Type 1: Yes Hx Diabetes Mellitus Type 2: Yes Hx Hypothyroidism: Yes (thyroid dz) - HEMATOLOGICAL/ONCOLOGICAL Hx AIDS: No Hx Anemia: Yes Hx Human Immunodeficiency Virus (HIV): No - INTEGUMENTARY Hx Dermatological Problems: Yes - MUSCULOSKELETAL/RHEUMATOLOGICAL Hx Falls: No - GASTROINTESTINAL Hx Bowel Surgery: Yes Hx Colostomy: Yes Hx Diverticulitis: Yes Other/Comment: perforated viscus repaired last admission - GENITOURINARY/GYNECOLOGICAL Hx Genitourinary Disorders: No - PSYCHIATRIC Hx Substance Use: No - SURGICAL HISTORY Hx Cholecystectomy: Yes Hx Hysterectomy: Yes Other/Comment: lumbar laminectomy-remote, repair of colon perforation with colostomy - ANESTHESIA Hx Anesthesia: Yes Hx Anesthesia Reactions: No Hx Malignant Hyperthermia: No Meds Allergies/Adverse Reactions: Allergies Allergy/AdvReac Type Severity Reaction Status Date / Time No Known Allergies Allergy Verified 05/11/18 13:23 - Medications Medications: Current Medications Acetaminophen (Tylenol 325mg Tab) 650 mg PO 0900,2100 [facility] Last Admin: 05/15/18 08:35 Dose: 650 mg Albuterol/Ipratropium (Duoneb 3 Mg/0.5 Mg (3 Ml) Ud) 3 ml INH RQID [facility] Last Admin: 05/15/18 12:47 Dose: 3 ml Atorvastatin Calcium (Lipitor) 40 mg PO 2100 [facility] Last Admin: 05/14/18 21:04 Dose: 40 mg Desoximetasone (Topicort 0.25%) 1 ea TOP Q12@0500,1700 [facility] Last Admin: 05/15/18 05:43 Dose: 1 applic Diltiazem HCl (Cardizem) 30 mg PO QID [facility] Last Admin: 05/15/18 12:24 Dose: Not Given Dimethicone (Proshield Plus Skin Protectant) 1 applic TOP Q12@0500,1700 [facility] Last Admin: 05/15/18 05:44 Dose: 1 applic Enoxaparin Sodium (Lovenox) 40 mg SC DAILY [facility] PRN Reason: Protocol Last Admin: 05/15/18 08:28 Dose: 40 mg Insulin Human Lispro (Humalog) 0 units SC ACHS [facility] PRN Reason: Protocol Last Admin: 05/15/18 12:23 Dose: Not Given Levothyroxine Sodium (Synthroid) 175 mcg PO DAILY@0630 [facility] Last Admin: 05/15/18 05:45 Dose: 175 mcg Losartan Potassium (Cozaar) 25 mg PO DAILY [facility] Last Admin: 05/15/18 08:26 Dose: Not Given Miconazole (Monistat 7 Vag Suppository) 100 mg VG HS [facility] Last Admin: 05/14/18 21:09 Dose: 100 mg Nystatin (Nystop Topical Powder) 1 applic TOP TID@0900,1300,2100 [facility] Last Admin: 05/15/18 12:24 Dose: 1 appl Olopatadine HCl (Patanol 0.1% Opht Soln) 1 drop OU DAILY [facility] Last Admin: 05/15/18 08:28 Dose: 1 drop Ondansetron HCl (Zofran Odt) 4 mg PO Q6 PRN PRN Reason: Nausea/Vomiting Last Admin: 05/10/18 22:10 Dose: 4 mg Pantoprazole Sodium (Protonix Ec Tab) 40 mg PO DAILY [facility] Last Admin: 05/15/18 08:35 Dose: 40 mg Saccharomyces Boulardii (Florastor) 250 mg PO BID [facility] Last Admin: 05/15/18 08:27 Dose: 250 mg Simethicone (Mylicon Chew Tab) 80 mg PO QID PRN PRN Reason: Flatulence Last Admin: 05/11/18 22:58 Dose: 80 mg Physical Exam - Constitutional Appears: Non-toxic - Head Exam Head Exam: ATRAUMATIC, NORMAL INSPECTION, NORMOCEPHALIC - Eye Exam Eye Exam: EOMI - ENT Exam ENT Exam: Mucous Membranes Moist - Respiratory Exam Respiratory Exam: NORMAL BREATHING PATTERN - Cardiovascular Exam Cardiovascular Exam: REGULAR RHYTHM - GI/Abdominal Exam GI & Abdominal Exam: Normal Bowel Sounds (+ colostomy and central incision with retention sutures. No drainage at this time) Results - Vital Signs Recent Vital Signs: Last Vital Signs Temp 97.9 F 05/15/18 08:48 Pulse 89 05/15/18 08:48 Resp 20 05/15/18 08:48 BP 113/66 05/15/18 12:24 Pulse Ox 96 05/15/18 08:48 - Labs Result Diagrams: 05/10/18 05:30 05/10/18 05:30 Labs: Laboratory Results - last 24 hr 05/14/18 05/14/18 05/15/18 16:34 21:07 05:38 POC Glucose (mg/dL) 137 H 168 H 112 H 05/15/18 10:57 POC Glucose (mg/dL) 133 H Assessment & Plan - Assessment and Plan (Free Text) Assessment: PT/OT to continue to help increase functional independence Pain: controlled Vascular: no evidence of DVT GI: No evidence of constipation or diarrhea Patient continues to be an excellent TCU rehabilitation candidate and will have continued focused PT, OT and recreational therapy to help facilitate a safe and appropriate d/c plan
[2018-05-16] MEDS: Simethicone 80 mg Chewtab PO PRN (04:02)
[2018-05-16] MEDS: Desoximetasone 0.25% Cream(15 gm) TOP SCH ×2 (04:04→16:57)
[2018-05-16] MEDS: Proshield Plus GEL TOP SCH ×2 (04:04→16:56)
[2018-05-16] MEDS: Levothyroxine 175 MCG TAB PO SCH (05:48)
[2018-05-16] MEDS: Insulin Lispro (humaLOG) 100 Units/ml Inj SC SCH ×4 (06:45→21:50)
[2018-05-16] MEDS: Albuterol-Ipratrop 3 mg / 0.5 (3 ml) UD INH SCH ×4 (08:14→19:04)
[2018-05-16] MEDS: Olopatadine 0.1% Opht SOLN OU SCH (08:16)
[2018-05-16] MEDS: Enoxaparin 40 mg Syringe SC SCH (08:16)
[2018-05-16] MEDS: Pantoprazole 40 mg EC Tab PO SCH (08:17)
[2018-05-16] MEDS: Saccharomyces Boulardi 250 mg Cap PO SCH ×2 (08:17→16:57)
[2018-05-17] MEDS: Proshield Plus GEL TOP SCH ×2 (05:36→17:38)
[2018-05-17] MEDS: Levothyroxine 175 MCG TAB PO SCH (05:37)
[2018-05-17] MEDS: Desoximetasone 0.25% Cream(15 gm) TOP SCH ×2 (05:38→17:39)
[2018-05-17] MEDS: Insulin Lispro (humaLOG) 100 Units/ml Inj SC SCH ×4 (06:34→22:22)
[2018-05-17] MEDS: Albuterol-Ipratrop 3 mg / 0.5 (3 ml) UD INH SCH (07:34)
[2018-05-17] MEDS: Olopatadine 0.1% Opht SOLN OU SCH (09:11)
[2018-05-17] MEDS: Enoxaparin 40 mg Syringe SC SCH ×2 (09:12→16:03)
[2018-05-17] MEDS: Saccharomyces Boulardi 250 mg Cap PO SCH ×2 (09:12→17:37)
[2018-05-17] MEDS: Pantoprazole 40 mg EC Tab PO SCH (09:16)
[2018-05-18] MEDS: Levothyroxine 175 MCG TAB PO SCH (06:33)
[2018-05-18] MEDS: Proshield Plus GEL TOP SCH ×2 (06:33→16:19)
[2018-05-18] MEDS: Desoximetasone 0.25% Cream(15 gm) TOP SCH ×2 (06:34→16:21)
[2018-05-18] MEDS: Insulin Lispro (humaLOG) 100 Units/ml Inj SC SCH ×4 (06:51→21:49)
[2018-05-18] MEDS: Albuterol-Ipratrop 3 mg / 0.5 (3 ml) UD INH SCH ×4 (07:03→19:42)
--- NOTE | 2018-05-18 07:29 | CP.PCM.PN ---
Subjective - Date & Time of Evaluation Date of Evaluation: 05/18/18 Time of Evaluation: 07:45 - Subjective Subjective: Patient seen and examined bedside with dr Sorto. Patient sitting on chair in the looney waiting for PT. Reports good appetite and improving with PT. Colostomy functioning. urine output normal. Denies fever, abdominal pain, nausea, vomiting , vaginal discharge. Patient reports her is also admitted in the hospital and will try to see him later. Possible discharge this week. will need home wound care. Objective - Vital Signs/Intake and Output Vital Signs (last 24 hours): Temp Pulse Resp BP Pulse Ox 97.7 F 82 20 119/71 98 05/17/18 21:10 05/17/18 22:21 05/17/18 22:21 05/17/18 22:21 05/17/18 22:21 - Medications Medications: Current Medications Acetaminophen (Tylenol 325mg Tab) 650 mg PO 0900,2100 [facility] Last Admin: 05/17/18 22:24 Dose: 650 mg Albuterol/Ipratropium (Duoneb 3 Mg/0.5 Mg (3 Ml) Ud) 3 ml INH RQID [facility] Last Admin: 05/18/18 07:03 Dose: 3 ml Atorvastatin Calcium (Lipitor) 40 mg PO 2100 [facility] Last Admin: 05/17/18 22:23 Dose: 40 mg Desoximetasone (Topicort 0.25%) 1 ea TOP Q12@0500,1700 [facility] Last Admin: 05/18/18 06:34 Dose: 1 applic Diltiazem HCl (Cardizem) 30 mg PO QID [facility] Last Admin: 05/17/18 22:21 Dose: 30 mg Dimethicone (Proshield Plus Skin Protectant) 1 applic TOP Q12@0500,1700 [facility] Last Admin: 05/18/18 06:33 Dose: 1 applic Enoxaparin Sodium (Lovenox) 40 mg SC DAILY [facility] PRN Reason: Protocol Last Admin: 05/17/18 16:03 Dose: Not Given Insulin Human Lispro (Humalog) 0 units SC ACHS [facility] PRN Reason: Protocol Last Admin: 05/18/18 06:51 Dose: Not Given Levothyroxine Sodium (Synthroid) 175 mcg PO DAILY@0630 [facility] Last Admin: 05/18/18 06:33 Dose: 175 mcg Losartan Potassium (Cozaar) 25 mg PO DAILY [facility] Last Admin: 05/17/18 09:12 Dose: 25 mg Nystatin (Nystop Topical Powder) 1 applic TOP TID@0900,1300,2100 [facility] Last Admin: 05/17/18 22:28 Dose: 1 appl Olopatadine HCl (Patanol 0.1% Opht Soln) 1 drop OU DAILY [facility] Last Admin: 05/17/18 09:11 Dose: 1 drop Ondansetron HCl (Zofran Odt) 4 mg PO Q6 PRN PRN Reason: Nausea/Vomiting Last Admin: 05/10/18 22:10 Dose: 4 mg Pantoprazole Sodium (Protonix Ec Tab) 40 mg PO DAILY [facility] Last Admin: 05/17/18 09:16 Dose: 40 mg Saccharomyces Boulardii (Florastor) 250 mg PO BID [facility] Last Admin: 05/17/18 17:37 Dose: 250 mg Simethicone (Mylicon Chew Tab) 80 mg PO QID PRN PRN Reason: Flatulence Last Admin: 05/16/18 04:02 Dose: 80 mg - Labs Labs: 05/10/18 05:30 05/10/18 05:30 PT 15.7 Seconds (9.8-13.1) H 04/18/18 05:20 INR 1.4 (0.9-1.2) H 04/18/18 05:20 APTT 35.4 Seconds (25.6-37.1) 04/18/18 05:20 - Constitutional Appears: Non-toxic, No Acute Distress - Head Exam Head Exam: ATRAUMATIC, NORMOCEPHALIC - Eye Exam Eye Exam: Normal appearance - ENT Exam ENT Exam: Mucous Membranes Moist - Respiratory Exam Respiratory Exam: Clear to Ausculation Bilateral. absent: Rhonchi, Wheezes - Cardiovascular Exam Cardiovascular Exam: Irregular Rhythm, REGULAR RHYTHM, +S1, +S2 - GI/Abdominal Exam GI & Abdominal Exam: Soft, Normal Bowel Sounds. absent: Tenderness Additional comments: colostomy LLQ, colostomy bag in place, no colostomy signs of infection. Midline infraumbilical wound with myran x2 in place.no erythema Jaimee- incisional. minimal yellowish discharge noticed - Extremities Exam Extremities Exam: Normal Inspection - Neurological Exam Neurological Exam: Alert, Awake - Psychiatric Exam Psychiatric exam: Normal Affect, Normal Mood - Skin Skin Exam: absent: Rash Assessment and Plan (1) COPD (chronic obstructive pulmonary disease) Status: Chronic (2) Pelvic abscess Assessment & Plan: Ct Abd reviewed: Decreased in size of culc de sac cavity about 40 % The cavity is contiguous with the vaginal cuff and pelvic loops of small bowel as well as the rectal suture line. Abx discontinued Status: Acute (3) Abdominal wall abscess at site of surgical wound Status: Acute
[2018-05-18] MEDS: Enoxaparin 40 mg Syringe SC SCH (09:10)
[2018-05-18] MEDS: Saccharomyces Boulardi 250 mg Cap PO SCH ×2 (09:11→16:20)
[2018-05-18] MEDS: Simethicone 80 mg Chewtab PO PRN ×2 (09:11→22:30)
[2018-05-18] MEDS: Olopatadine 0.1% Opht SOLN OU SCH (09:13)
[2018-05-18] MEDS: Pantoprazole 40 mg EC Tab PO SCH (09:20)
--- NOTE | 2018-05-18 11:54 | PN ---
DATE: 05/17/2018 The patient is seen on the floor. She has Yoli drains in the left lower quadrant draining a pelvic abscess. The pelvic abscess is still present. The ideal treatment would be laparotomy resection followed at some time by a reversible colostomy. I do not think she is healthy enough to withstand that. Although, she is more vigorous than she has been, eating well, referred little pain. Because of her age and general condition, I do not think she would tolerate this procedure. The plan will be to try to get as healthy and strong. This abscess, I believe, will recur. going possibly with higher drainage. I am aware that the is admitted to the hospital. Peter Montaño MD
[2018-05-18 11:59] LABS: BASO % 0.5 % (0.0-2.0); EOS # 0.5 K/uL (0.0-0.7); EOS % 7.5 % (0.0-4.0); HEMOGLOBIN 10.9 g/dL (12.0-16.0); LYMPH # 3.4 K/uL (1.0-4.3); LYMPH % 46.3 % (20.0-40.0); MEAN CELL VOLUME 94.8 fl (81.0-99.0); MEAN CORPUSCULAR HEMOGLOBIN 31.8 pg (27.0-31.0); MEAN CORPUSCULAR HGB CONC 33.5 g/dL (33.0-37.0); MEAN PLATELET VOLUME 8.2 fl (7.2-11.7); MONO # 0.4 K/uL (0.0-0.8); NEUT # 2.9 K/uL (1.8-7.0); NEUT % 40.7 % (50.0-75.0); RBC 3.43 Mil/uL (3.80-5.20); RED CELL DISTRIBUTION WIDTH 18.5 % (11.5-14.5); WHITE BLOOD COUNT 7.2 K/uL (4.8-10.8)
[2018-05-18 12:13] LABS: ALB/GLOB RATIO 0.9 (1.0-2.1); ALBUMIN 3.2 g/dL (3.5-5.0); ALT/SGPT 90 U/L (9-52); AST/SGOT 127 U/L (14-36); BLOOD UREA NITROGEN 14 mg/dl (7-17); CALCIUM 8.1 mg/dL (8.4-10.2); GFR AFRICAN-AMERICAN > 60; GFR NON-AFRICAN AMERICAN > 60
[2018-05-19] MEDS: Desoximetasone 0.25% Cream(15 gm) TOP SCH ×2 (05:44→16:50)
[2018-05-19] MEDS: Levothyroxine 175 MCG TAB PO SCH (05:44)
[2018-05-19] MEDS: Proshield Plus GEL TOP SCH ×2 (05:44→16:50)
[2018-05-19] MEDS: Insulin Lispro (humaLOG) 100 Units/ml Inj SC SCH ×4 (07:05→21:43)
[2018-05-19] MEDS: Albuterol-Ipratrop 3 mg / 0.5 (3 ml) UD INH SCH ×4 (07:09→19:36)
[2018-05-19] MEDS: Saccharomyces Boulardi 250 mg Cap PO SCH ×2 (08:35→16:44)
[2018-05-19] MEDS: Enoxaparin 40 mg Syringe SC SCH (08:36)
[2018-05-19] MEDS: Pantoprazole 40 mg EC Tab PO SCH (08:36)
[2018-05-19] MEDS: Olopatadine 0.1% Opht SOLN OU SCH (08:37)
[2018-05-19] MEDS: Simethicone 80 mg Chewtab PO PRN (08:37)
--- NOTE | 2018-05-19 12:36 | CP.PCM.PN ---
Subjective - Date & Time of Evaluation Date of Evaluation: 05/19/18 Time of Evaluation: 12:33 - Subjective Subjective: General surgery progress note for Dr. Lee Donahue, PGY-2 Pt S & E at bedside at 1215 Pt sitting comfortably at bedside. No current complaints, is working with PT. Asking to go home Objective - Vital Signs/Intake and Output Vital Signs (last 24 hours): Temp Pulse Resp BP Pulse Ox 98.1 F 86 20 135/73 96 05/19/18 08:29 05/19/18 08:36 05/19/18 08:29 05/19/18 08:36 05/19/18 08:29 - Medications Medications: Current Medications Acetaminophen (Tylenol 325mg Tab) 650 mg PO 0900,2100 [facility] Last Admin: 05/19/18 08:34 Dose: 650 mg Albuterol/Ipratropium (Duoneb 3 Mg/0.5 Mg (3 Ml) Ud) 3 ml INH RQID [facility] Last Admin: 05/19/18 11:33 Dose: 3 ml Atorvastatin Calcium (Lipitor) 40 mg PO 2100 [facility] Last Admin: 05/18/18 21:50 Dose: 40 mg Desoximetasone (Topicort 0.25%) 1 ea TOP Q12@0500,1700 [facility] Last Admin: 05/19/18 05:44 Dose: 1 applic Diltiazem HCl (Cardizem) 30 mg PO QID [facility] Last Admin: 05/19/18 08:35 Dose: 30 mg Dimethicone (Proshield Plus Skin Protectant) 1 applic TOP Q12@0500,1700 [facility] Last Admin: 05/19/18 05:44 Dose: 1 applic Enoxaparin Sodium (Lovenox) 40 mg SC DAILY [facility] PRN Reason: Protocol Last Admin: 05/19/18 08:36 Dose: 40 mg Insulin Human Lispro (Humalog) 0 units SC ACHS [facility] PRN Reason: Protocol Last Admin: 05/19/18 07:05 Dose: Not Given Levothyroxine Sodium (Synthroid) 175 mcg PO DAILY@0630 [facility] Last Admin: 05/19/18 05:44 Dose: 175 mcg Losartan Potassium (Cozaar) 25 mg PO DAILY [facility] Last Admin: 05/19/18 08:36 Dose: 25 mg Nystatin (Nystop Topical Powder) 1 applic TOP TID@00,1300,2100 [facility] Last Admin: 05/18/18 21:50 Dose: 1 appl Olopatadine HCl (Patanol 0.1% Opht Soln) 1 drop OU DAILY [facility] Last Admin: 05/19/18 08:37 Dose: 1 drop Ondansetron HCl (Zofran Odt) 4 mg PO Q6 PRN PRN Reason: Nausea/Vomiting Last Admin: 05/10/18 22:10 Dose: 4 mg Pantoprazole Sodium (Protonix Ec Tab) 40 mg PO DAILY [facility] Last Admin: 05/19/18 08:36 Dose: 40 mg Saccharomyces Boulardii (Florastor) 250 mg PO BID [facility] Last Admin: 05/19/18 08:35 Dose: 250 mg Simethicone (Mylicon Chew Tab) 80 mg PO QID PRN PRN Reason: Flatulence Last Admin: 05/19/18 08:37 Dose: 80 mg - Labs Labs: 05/18/18 11:53 05/18/18 11:53 PT 15.7 Seconds (9.8-13.1) H 04/18/18 05:20 INR 1.4 (0.9-1.2) H 04/18/18 05:20 APTT 35.4 Seconds (25.6-37.1) 04/18/18 05:20 - Constitutional Appears: Non-toxic, No Acute Distress - Head Exam Head Exam: ATRAUMATIC, NORMAL INSPECTION, NORMOCEPHALIC - Eye Exam Eye Exam: EOMI, Normal appearance - ENT Exam ENT Exam: Mucous Membranes Moist, Normal Exam - Neck Exam Neck Exam: Full ROM, Normal Inspection - Respiratory Exam Respiratory Exam: NORMAL BREATHING PATTERN - Cardiovascular Exam Cardiovascular Exam: REGULAR RHYTHM, +S1, +S2 - GI/Abdominal Exam GI & Abdominal Exam: Soft. absent: Distended, Firm, Tenderness Additional comments: colostomy in place- no output currently Midline distal aspect of incision with yoli in place, minimal purulent drainage noted; dressing with small amount of purulent strike through - Extremities Exam Extremities Exam: Normal Inspection - Neurological Exam Neurological Exam: Alert, Awake, CN II-XII Intact, Oriented x3 - Psychiatric Exam Psychiatric exam: Normal Affect, Normal Mood - Skin Skin Exam: Dry, Normal Color, Warm Assessment and Plan - Assessment and Plan (Free Text) Assessment: 87F POD #84 s/p Ex lap, sigmod resection, colostomy Plan: Removed 1 Yoli drain Changed abdominal dressing Leave [address] To follow up with Dr. Montaño next week to assess wound Daily dressing changes as needed with gauze and tape Ok to shower after removing dressing; then replace dressing Spoke to son on telephone: Blake @ [phone] regarding wound care and patient 's current medical status- asking for medical records; instructed son to have mother sign a records release to access record DW attending Rowan, PGY-2
--- NOTE | 2018-05-19 18:54 | CP.PCM.PN ---
Subjective - Date & Time of Evaluation Date of Evaluation: 05/19/18 Time of Evaluation: 13:45 - Subjective Subjective: Patient seen and examined. No complaint. Objective - Vital Signs/Intake and Output Vital Signs (last 24 hours): Temp Pulse Resp BP Pulse Ox 98.2 F 86 20 131/70 97 05/19/18 16:08 05/19/18 16:44 05/19/18 16:08 05/19/18 16:44 05/19/18 16:08 - Medications Medications: Current Medications Acetaminophen (Tylenol 325mg Tab) 650 mg PO 0900,2100 [facility] Last Admin: 05/19/18 08:34 Dose: 650 mg Albuterol/Ipratropium (Duoneb 3 Mg/0.5 Mg (3 Ml) Ud) 3 ml INH RQID [facility] Last Admin: 05/19/18 15:53 Dose: 3 ml Atorvastatin Calcium (Lipitor) 40 mg PO 2100 [facility] Last Admin: 05/18/18 21:50 Dose: 40 mg Desoximetasone (Topicort 0.25%) 1 ea TOP Q12@0500,1700 [facility] Last Admin: 05/19/18 16:50 Dose: 1 applic Diltiazem HCl (Cardizem) 30 mg PO QID [facility] Last Admin: 05/19/18 16:44 Dose: 30 mg Dimethicone (Proshield Plus Skin Protectant) 1 applic TOP Q12@0500,1700 [facility] Last Admin: 05/19/18 16:50 Dose: 1 applic Enoxaparin Sodium (Lovenox) 40 mg SC DAILY [facility] PRN Reason: Protocol Last Admin: 05/19/18 08:36 Dose: 40 mg Insulin Human Lispro (Humalog) 0 units SC [facility] PRN Reason: Protocol Last Admin: 05/19/18 16:51 Dose: Not Given Levothyroxine Sodium (Synthroid) 175 mcg PO DAILY@0630 [facility] Last Admin: 05/19/18 05:44 Dose: 175 mcg Losartan Potassium (Cozaar) 25 mg PO DAILY [facility] Last Admin: 05/19/18 08:36 Dose: 25 mg Nystatin (Nystop Topical Powder) 1 applic TOP TID@0900,1300,2100 [facility] Last Admin: 05/19/18 12:45 Dose: 1 appl Olopatadine HCl (Patanol 0.1% Opht Soln) 1 drop OU DAILY [facility] Last Admin: 05/19/18 08:37 Dose: 1 drop Ondansetron HCl (Zofran Odt) 4 mg PO Q6 PRN PRN Reason: Nausea/Vomiting Last Admin: 05/10/18 22:10 Dose: 4 mg Pantoprazole Sodium (Protonix Ec Tab) 40 mg PO DAILY [facility] Last Admin: 05/19/18 08:36 Dose: 40 mg Saccharomyces Boulardii (Florastor) 250 mg PO BID [facility] Last Admin: 05/19/18 16:44 Dose: 250 mg Simethicone (Mylicon Chew Tab) 80 mg PO QID PRN PRN Reason: Flatulence Last Admin: 05/19/18 08:37 Dose: 80 mg - Labs Labs: 05/18/18 11:53 05/18/18 11:53 PT 15.7 Seconds (9.8-13.1) H 04/18/18 05:20 INR 1.4 (0.9-1.2) H 04/18/18 05:20 APTT 35.4 Seconds (25.6-37.1) 04/18/18 05:20 - Constitutional Appears: No Acute Distress - Head Exam Head Exam: ATRAUMATIC - Eye Exam Eye Exam: absent: Scleral icterus - ENT Exam ENT Exam: Mucous Membranes Moist - Neck Exam Neck Exam: absent: Meningismus - Respiratory Exam Respiratory Exam: absent: Rales, Rhonchi, Wheezes, Respiratory Distress - Cardiovascular Exam Cardiovascular Exam: REGULAR RHYTHM, +S1, +S2 - GI/Abdominal Exam GI & Abdominal Exam: Soft. absent: Tenderness - Rectal Exam Rectal Exam: Deferred - Neurological Exam Neurological Exam: Alert, Oriented x3 - Psychiatric Exam Psychiatric exam: Normal Affect - Skin Skin Exam: Dry, Intact Assessment and Plan - Assessment and Plan (Free Text) Assessment: 87 yo female with history of CHF, COPD, AFib, HTN, DM2 and Hypothyroidism had colon resection with colostomy on 02/25/2018 after perforating colon during colonoscopy. Post op days were uneventful and patient was discharged in stable condition 8 days later. A month later patient was brought back because of abdominal pain associated with purulent discharge from the surgical wound. CT scan of abdomen showed large pelvic abscess. Patient was started on IV antibiotics and IR drained the abscess followed with wound vac placement to help wound closure. Repeat CT scan showed reduction of pelvic abscess and new recto-vaginal fistula. Patient was transferred to TCU for continuation of IV antibiotic and therapy. 1. Pelvic Abscess and Abdominal Wound Abscess at surgical site wound culture grew Proteus and ESBL E Coli off antibiotics per ID recommendation Dr Garcia on ID consult 2. Diabetes mellitus, type II BS controlled continue accuchek ACHS with Lispro coverage 3. CHF, diastolic dysfunction continue Losartan 4. Atrial fibrillation rate controlled continue Cardizem 5. COPD asymptomatic on Duoneb and Pulmicort 6. Hypertension BP stable continue Cardizem and Losartan 7. Hypothyroidism continue Levothyroxine 8. DVT prophylaxis continue Lovenox
[2018-05-20] MEDS: Simethicone 80 mg Chewtab PO PRN (02:46)
[2018-05-20] MEDS: Proshield Plus GEL TOP SCH ×2 (05:33→17:45)
[2018-05-20] MEDS: Desoximetasone 0.25% Cream(15 gm) TOP SCH ×2 (05:33→17:45)
[2018-05-20] MEDS: Levothyroxine 175 MCG TAB PO SCH (05:34)
[2018-05-20] MEDS: Insulin Lispro (humaLOG) 100 Units/ml Inj SC SCH ×4 (06:38→22:10)
[2018-05-20] MEDS: Albuterol-Ipratrop 3 mg / 0.5 (3 ml) UD INH SCH ×4 (07:28→19:34)
--- NOTE | 2018-05-20 07:33 | CP.PCM.PN ---
Subjective - Date & Time of Evaluation Date of Evaluation: 05/20/18 Time of Evaluation: 08:00 - Subjective Subjective: Pt is seen and examined with Dr. Sorto. Pt is on bed comfortable, no acute distress, she have no complain except that she havent pass BM in the past 2 days. Pt denies having any fever, Nausea, Vomiting, dizziness, headache, SOB, Chest pain, Abdominal pain, Diarrhea, dysuria, polyuria. Pt is doing great with the physical therapy. She want to leave and see her . Objective - Vital Signs/Intake and Output Vital Signs (last 24 hours): Temp Pulse Resp BP Pulse Ox 97.2 F L 89 20 136/77 98 05/19/18 19:40 05/19/18 21:24 05/19/18 19:40 05/19/18 21:24 05/19/18 21:24 - Medications Medications: Current Medications Acetaminophen (Tylenol 325mg Tab) 650 mg PO 0900,2100 [facility] Last Admin: 05/19/18 21:22 Dose: 650 mg Albuterol/Ipratropium (Duoneb 3 Mg/0.5 Mg (3 Ml) Ud) 3 ml INH RQID [facility] Last Admin: 05/20/18 07:28 Dose: 3 ml Atorvastatin Calcium (Lipitor) 40 mg PO 2100 [facility] Last Admin: 05/19/18 21:23 Dose: 40 mg Desoximetasone (Topicort 0.25%) 1 ea TOP Q12@0500,1700 [facility] Last Admin: 05/20/18 05:33 Dose: 1 applic Diltiazem HCl (Cardizem) 30 mg PO QID [facility] Last Admin: 05/19/18 21:24 Dose: 30 mg Dimethicone (Proshield Plus Skin Protectant) 1 applic TOP Q12@0500,1700 [facility] Last Admin: 05/20/18 05:33 Dose: 1 applic Enoxaparin Sodium (Lovenox) 40 mg SC DAILY [facility] PRN Reason: Protocol Last Admin: 05/19/18 08:36 Dose: 40 mg Insulin Human Lispro (Humalog) 0 units SC ACHS [facility] PRN Reason: Protocol Last Admin: 05/20/18 06:38 Dose: Not Given Levothyroxine Sodium (Synthroid) 175 mcg PO DAILY@0630 [facility] Last Admin: 05/20/18 05:34 Dose: 175 mcg Losartan Potassium (Cozaar) 25 mg PO DAILY [facility] Last Admin: 05/19/18 08:36 Dose: 25 mg Nystatin (Nystop Topical Powder) 1 applic TOP TID@0900,1300,2100 [facility] Last Admin: 05/19/18 21:23 Dose: 1 appl Olopatadine HCl (Patanol 0.1% Opht Soln) 1 drop OU DAILY [facility] Last Admin: 05/19/18 08:37 Dose: 1 drop Ondansetron HCl (Zofran Odt) 4 mg PO Q6 PRN PRN Reason: Nausea/Vomiting Last Admin: 05/10/18 22:10 Dose: 4 mg Pantoprazole Sodium (Protonix Ec Tab) 40 mg PO DAILY [facility] Last Admin: 05/19/18 08:36 Dose: 40 mg Saccharomyces Boulardii (Florastor) 250 mg PO BID [facility] Last Admin: 05/19/18 16:44 Dose: 250 mg Simethicone (Mylicon Chew Tab) 80 mg PO QID PRN PRN Reason: Flatulence Last Admin: 05/20/18 02:46 Dose: 80 mg - Labs Labs: 05/18/18 11:53 05/18/18 11:53 PT 15.7 Seconds (9.8-13.1) H 04/18/18 05:20 INR 1.4 (0.9-1.2) H 04/18/18 05:20 APTT 35.4 Seconds (25.6-37.1) 04/18/18 05:20 - Constitutional Appears: Well, Non-toxic, No Acute Distress - Head Exam Head Exam: ATRAUMATIC, NORMAL INSPECTION, NORMOCEPHALIC - Eye Exam Eye Exam: EOMI, Normal appearance, PERRL Pupil Exam: NORMAL ACCOMODATION, PERRL - ENT Exam ENT Exam: Mucous Membranes Moist, Normal Exam - Neck Exam Neck Exam: Full ROM, Normal Inspection - Respiratory Exam Respiratory Exam: Clear to Ausculation Bilateral, NORMAL BREATHING PATTERN. absent: Rales, Rhonchi, Wheezes - Cardiovascular Exam Cardiovascular Exam: REGULAR RHYTHM, +S1, +S2 - GI/Abdominal Exam GI & Abdominal Exam: Normal Bowel Sounds Additional comments: There is erythema, and mild tenderness on the surgical incision found on the umbilical area. intact colustomy bag noted on LLQ, No erythema, warmth, or tenderness. - Extremities Exam Extremities Exam: Full ROM, Normal Capillary Refill, Normal Inspection - Back Exam Back Exam: NORMAL INSPECTION - Neurological Exam Neurological Exam: Alert, Awake, Oriented x3 - Psychiatric Exam Psychiatric exam: Normal Affect, Normal Mood - Skin Skin Exam: Normal Color, Warm Assessment and Plan (1) COPD (chronic obstructive pulmonary disease) Assessment & Plan: Pt is 87 yo with COPD, Improving, Pt have no SOB , CHest pain, VItal are stable Plan Continue same regiment Pt is ready to be discharged as point of view from Pulmonologits Status: Chronic (2) Abdominal wall abscess at site of surgical wound Assessment & Plan: Antibiotic discontinued Plan monitor for any change. Status: Acute (3) Pelvic abscess Status: Acute
[2018-05-20] MEDS: Enoxaparin 40 mg Syringe SC SCH (08:59)
[2018-05-20] MEDS: Saccharomyces Boulardi 250 mg Cap PO SCH ×2 (08:59→17:43)
[2018-05-20] MEDS: Olopatadine 0.1% Opht SOLN OU SCH (09:00)
[2018-05-20] MEDS: Pantoprazole 40 mg EC Tab PO SCH (09:00)
--- NOTE | 2018-05-20 15:07 | CP.PCM.PCO ---
Physician Communication Note - Physician Communication Note Physician Communication Note: Pt fell w/ head trauma. CT head stat ordered. No focal neuro deficits noted
[2018-05-21] MEDS: Proshield Plus GEL TOP SCH ×2 (06:07→16:48)
[2018-05-21] MEDS: Desoximetasone 0.25% Cream(15 gm) TOP SCH ×2 (06:08→16:49)
[2018-05-21] MEDS: Levothyroxine 175 MCG TAB PO SCH (06:12)
[2018-05-21] MEDS: Albuterol-Ipratrop 3 mg / 0.5 (3 ml) UD INH SCH ×4 (07:45→19:13)
[2018-05-21] MEDS: Insulin Lispro (humaLOG) 100 Units/ml Inj SC SCH ×4 (07:56→22:35)
--- NOTE | 2018-05-21 08:29 | CP.PCM.PN ---
Subjective - Date & Time of Evaluation Date of Evaluation: 05/21/18 Time of Evaluation: 08:27 - Subjective Subjective: General surgery short progress note for Dr. Lee Donahue, PGY-2 Pt S & E at bedside at 0815 Per nursing, pt sustained a fall yesterday. Nursing would like abdomen to be evaluated s/p fall. Pt reports she slipped and fell face first, did not hit/ hurt her abdomen, is not in any pain, having bowel function into her ostomy. Ostomy bag with soft solid stool-moderate amount. No abdominal complaints, just hurt the right side of her face. Objective - Vital Signs/Intake and Output Vital Signs (last 24 hours): Temp Pulse Resp BP Pulse Ox 97.3 F L 82 20 140/72 98 05/21/18 08:26 05/21/18 08:26 05/21/18 08:26 05/21/18 08:26 05/21/18 08:26 - Medications Medications: Current Medications Acetaminophen (Tylenol 325mg Tab) 650 mg PO 0900,2100 [facility] Last Admin: 05/20/18 22:12 Dose: Not Given Albuterol/Ipratropium (Duoneb 3 Mg/0.5 Mg (3 Ml) Ud) 3 ml INH RQID [facility] Last Admin: 05/21/18 07:45 Dose: 3 ml Atorvastatin Calcium (Lipitor) 40 mg PO 2100 [facility] Last Admin: 05/20/18 22:10 Dose: 40 mg Desoximetasone (Topicort 0.25%) 1 ea TOP Q12@0500,1700 [facility] Last Admin: 05/21/18 06:08 Dose: 1 applic Diltiazem HCl (Cardizem) 30 mg PO QID [facility] Last Admin: 05/20/18 22:08 Dose: Not Given Dimethicone (Proshield Plus Skin Protectant) 1 applic TOP Q12@0500,1700 [facility] Last Admin: 05/21/18 06:07 Dose: 1 applic Enoxaparin Sodium (Lovenox) 40 mg SC DAILY [facility] PRN Reason: Protocol Last Admin: 05/20/18 08:59 Dose: 40 mg Insulin Human Lispro (Humalog) 0 units SC ACHS [facility] PRN Reason: Protocol Last Admin: 05/21/18 07:56 Dose: Not Given Levothyroxine Sodium (Synthroid) 175 mcg PO DAILY@0630 [facility] Last Admin: 05/21/18 06:12 Dose: 175 mcg Losartan Potassium (Cozaar) 25 mg PO DAILY [facility] Last Admin: 05/20/18 08:59 Dose: 25 mg Nystatin (Nystop Topical Powder) 1 applic TOP TID@0900,1300,2100 [facility] Last Admin: 05/20/18 22:11 Dose: 1 appl Olopatadine HCl (Patanol 0.1% Opht Soln) 1 drop OU DAILY [facility] Last Admin: 05/20/18 09:00 Dose: 1 drop Ondansetron HCl (Zofran Odt) 4 mg PO Q6 PRN PRN Reason: Nausea/Vomiting Last Admin: 05/10/18 22:10 Dose: 4 mg Pantoprazole Sodium (Protonix Ec Tab) 40 mg PO DAILY [facility] Last Admin: 05/20/18 09:00 Dose: 40 mg Saccharomyces Boulardii (Florastor) 250 mg PO BID [facility] Last Admin: 05/20/18 17:43 Dose: 250 mg Simethicone (Mylicon Chew Tab) 80 mg PO QID PRN PRN Reason: Flatulence Last Admin: 05/20/18 02:46 Dose: 80 mg - Labs Labs: 05/18/18 11:53 05/18/18 11:53 PT 15.7 Seconds (9.8-13.1) H 04/18/18 05:20 INR 1.4 (0.9-1.2) H 04/18/18 05:20 APTT 35.4 Seconds (25.6-37.1) 04/18/18 05:20 - Constitutional Appears: Non-toxic, No Acute Distress - Head Exam Head Exam: absent: ATRAUMATIC, NORMAL INSPECTION, NORMOCEPHALIC Additional comments: Right eyebrow/eyelid with diffuse ecchymoses, swelling, tenderness to palpation. - Eye Exam Eye Exam: EOMI. absent: Normal appearance - ENT Exam ENT Exam: Mucous Membranes Moist, Normal Exam - Respiratory Exam Respiratory Exam: NORMAL BREATHING PATTERN - Cardiovascular Exam Cardiovascular Exam: REGULAR RHYTHM, +S1, +S2 - GI/Abdominal Exam GI & Abdominal Exam: Soft. absent: Distended, Firm, Guarding, Rigid, Tenderness Additional comments: Upper midline surgical incision well healed, Yoli in place in lower abdominal incision, ostomy in place with moderate amount of soft/solid brown stool. Non tender. No erythema. No fluctuance. - Neurological Exam Neurological Exam: Alert, Awake, Oriented x3 - Psychiatric Exam Psychiatric exam: Normal Affect, Normal Mood - Skin Additional comments: See head exam for skin findings of face Assessment and Plan - Assessment and Plan (Free Text) Assessment: 87F POD #86 s/p Ex lap, sigmod resection, colostomy, now s/p mechanical fall Plan: Ok to go home with [address] Cont diet To follow up with Dr. Montaño next week to assess wound Daily dressing changes as needed with gauze and tape Ok to shower after removing dressing; then replace dressing Further mgmt as per primary team Will EMMA attending Rowan, PGY-2
[2018-05-21 08:44] LABS: BASO % 0.6 % (0.0-2.0); EOS # 0.8 K/uL (0.0-0.7); EOS % 9.5 % (0.0-4.0); HEMOGLOBIN 10.6 g/dL (12.0-16.0); LYMPH # 3.9 K/uL (1.0-4.3); LYMPH % 47.1 % (20.0-40.0); MEAN CELL VOLUME 96.2 fl (81.0-99.0); MEAN CORPUSCULAR HEMOGLOBIN 32.3 pg (27.0-31.0); MEAN CORPUSCULAR HGB CONC 33.6 g/dL (33.0-37.0); MEAN PLATELET VOLUME 8.3 fl (7.2-11.7); MONO # 0.5 K/uL (0.0-0.8); MONO % 6.2 % (0.0-10.0); NEUT % 36.6 % (50.0-75.0); RBC 3.28 Mil/uL (3.80-5.20); RED CELL DISTRIBUTION WIDTH 18.6 % (11.5-14.5); WHITE BLOOD COUNT 8.3 K/uL (4.8-10.8)
[2018-05-21 08:59] LABS: ALB/GLOB RATIO 0.8 (1.0-2.1); ALT/SGPT 76 U/L (9-52); AST/SGOT 107 U/L (14-36); BLOOD UREA NITROGEN 9 mg/dl (7-17); CALCIUM 8.6 mg/dL (8.4-10.2); GFR AFRICAN-AMERICAN > 60; GFR NON-AFRICAN AMERICAN > 60
[2018-05-21] MEDS: Saccharomyces Boulardi 250 mg Cap PO SCH ×2 (09:10→16:56)
[2018-05-21] MEDS: Pantoprazole 40 mg EC Tab PO SCH (09:10)
[2018-05-21] MEDS: Olopatadine 0.1% Opht SOLN OU SCH (09:11)
[2018-05-21] MEDS ORDERED: Potassium Chloride 20 mEq ER Tab PO ONE (10:09)
--- NOTE | 2018-05-21 10:53 | CP.PCM.PN ---
Subjective - Date & Time of Evaluation Date of Evaluation: 05/21/18 Time of Evaluation: 07:55 - Subjective Subjective: Patient seen and examined bedside with dr Sorto. Patient sitting on chair in the looney before getting physical therapy. Patient reports a mechanical fall when trying to go to [employer] yesterday afternoon resulting in right frontal head trauma with bruising. Ct head w/o contrast did not showed acute intracraneal bleeding or fracture. Reports good appetite and improving with PT. Colostomy functioning. new area of cellulitis on abdomen. surgery consult appreciated. Denies fever, abdominal pain, nausea, vomiting, vaginal discharge. CBC,CMP ordered. no acute anemia, no leukocytosis. K 3.2, patient given Kdur Objective - Vital Signs/Intake and Output Vital Signs (last 24 hours): Temp Pulse Resp BP Pulse Ox 97.3 F L 82 20 140/72 98 05/21/18 08:26 05/21/18 09:13 05/21/18 08:26 05/21/18 09:13 05/21/18 08:26 - Medications Medications: Current Medications Acetaminophen (Tylenol 325mg Tab) 650 mg PO 0900,2100 [facility] Last Admin: 05/21/18 09:09 Dose: 650 mg Albuterol/Ipratropium (Duoneb 3 Mg/0.5 Mg (3 Ml) Ud) 3 ml INH RQID [facility] Last Admin: 05/21/18 07:45 Dose: 3 ml Atorvastatin Calcium (Lipitor) 40 mg PO 2100 [facility] Last Admin: 05/20/18 22:10 Dose: 40 mg Desoximetasone (Topicort 0.25%) 1 ea TOP Q12@0500,1700 [facility] Last Admin: 05/21/18 06:08 Dose: 1 applic Diltiazem HCl (Cardizem) 30 mg PO QID [facility] Last Admin: 05/21/18 09:10 Dose: 30 mg Dimethicone (Proshield Plus Skin Protectant) 1 applic TOP Q12@0500,1700 [facility] Last Admin: 05/21/18 06:07 Dose: 1 applic Enoxaparin Sodium (Lovenox) 40 mg SC DAILY [facility] PRN Reason: Protocol Last Admin: 05/20/18 08:59 Dose: 40 mg Insulin Human Lispro (Humalog) 0 units SC ACHS [facility] PRN Reason: Protocol Last Admin: 05/21/18 07:56 Dose: Not Given Levothyroxine Sodium (Synthroid) 175 mcg PO DAILY@0630 [facility] Last Admin: 05/21/18 06:12 Dose: 175 mcg Losartan Potassium (Cozaar) 25 mg PO DAILY [facility] Last Admin: 05/21/18 09:13 Dose: 25 mg Nystatin (Nystop Topical Powder) 1 applic TOP TID@0900,1300,2100 [facility] Last Admin: 05/20/18 22:11 Dose: 1 appl Olopatadine HCl (Patanol 0.1% Opht Soln) 1 drop OU DAILY [facility] Last Admin: 05/21/18 09:11 Dose: 1 drop Ondansetron HCl (Zofran Odt) 4 mg PO Q6 PRN PRN Reason: Nausea/Vomiting Last Admin: 05/10/18 22:10 Dose: 4 mg Pantoprazole Sodium (Protonix Ec Tab) 40 mg PO DAILY [facility] Last Admin: 05/21/18 09:10 Dose: 40 mg Saccharomyces Boulardii (Florastor) 250 mg PO BID [facility] Last Admin: 05/21/18 09:10 Dose: 250 mg Simethicone (Mylicon Chew Tab) 80 mg PO QID PRN PRN Reason: Flatulence Last Admin: 05/20/18 02:46 Dose: 80 mg - Labs Labs: 05/21/18 08:30 05/21/18 08:30 PT 15.7 Seconds (9.8-13.1) H 04/18/18 05:20 INR 1.4 (0.9-1.2) H 04/18/18 05:20 APTT 35.4 Seconds (25.6-37.1) 04/18/18 05:20 - Constitutional Appears: No Acute Distress - Head Exam Additional comments: right frontal and right orbital hematoma. no subconjunctival hemorrhage. - Eye Exam Eye Exam: Periorbital swelling (2/2 hematoma s/p mechanical fall ) Pupil Exam: PERRL - Neck Exam Neck Exam: Normal Inspection - Respiratory Exam Respiratory Exam: Clear to Ausculation Bilateral. absent: Rales, Rhonchi, Wheezes - Cardiovascular Exam Cardiovascular Exam: Irregular Rhythm, +S1, +S2 - GI/Abdominal Exam GI & Abdominal Exam: Soft, Normal Bowel Sounds. absent: Tenderness Additional comments: colostomy LLQ, colostomy bag in place,BM formed, no colostomy signs of infection. Midline infraumbilical wound with myrna x1 in place. new area of erythema noted nasima-incisional. minimal yellowish discharge noticed - Back Exam Back Exam: NORMAL INSPECTION - Neurological Exam Neurological Exam: Alert, Awake - Psychiatric Exam Psychiatric exam: Normal Mood - Skin Skin Exam: Erythema (area of erythema 4 cm infraumbilical) Assessment and Plan (1) COPD (chronic obstructive pulmonary disease) Status: Chronic (2) Pelvic abscess Assessment & Plan: Ct Abd reviewed: Decreased in size of culc de sac cavity about 40 % The cavity is contiguous with the vaginal cuff and pelvic loops of small bowel as well as the rectal suture line. Abx discontinued Status: Acute (3) Abdominal wall abscess at site of surgical wound Assessment & Plan: Surgery consult appreciated. recommends f/u wound with Dr Montaño outpatient next week Status: Acute
--- NOTE | 2018-05-21 12:08 | CP.PCM.PN ---
Subjective - Date & Time of Evaluation Date of Evaluation: 05/21/18 Time of Evaluation: 10:00 - Subjective Subjective: Patient was seen and examined OOB in the wheelchair before physical therapy. The patient was seen and examined. Yesterday the patient had a fall face first and now has a large forehead contusion with supraorbital hematoma. The patient was seen for CT head w/out contrast which was negative for intracranial bleed or fracture. In addition the patient had surgery reevaluate her after the fall to look at her colostomy- surgery stated that the colostomy looked good and was functioning properly. Today, the patient states that she feels better and denies any pain at the area of trauma. She relates that she would like to go home as soon as possible as she has some things to take care of at home. Objective - Vital Signs/Intake and Output Vital Signs (last 24 hours): Temp Pulse Resp BP Pulse Ox 97.3 F L 82 20 140/72 98 05/21/18 08:26 05/21/18 09:13 05/21/18 08:26 05/21/18 09:13 05/21/18 08:26 - Medications Medications: Current Medications Acetaminophen (Tylenol 325mg Tab) 650 mg PO 0900,2100 [facility] Last Admin: 05/21/18 09:09 Dose: 650 mg Albuterol/Ipratropium (Duoneb 3 Mg/0.5 Mg (3 Ml) Ud) 3 ml INH RQID [facility] Last Admin: 05/21/18 11:21 Dose: 3 ml Atorvastatin Calcium (Lipitor) 40 mg PO 2100 [facility] Last Admin: 05/20/18 22:10 Dose: 40 mg Desoximetasone (Topicort 0.25%) 1 ea TOP Q12@0500,1700 [facility] Last Admin: 05/21/18 06:08 Dose: 1 applic Diltiazem HCl (Cardizem) 30 mg PO QID [facility] Last Admin: 05/21/18 09:10 Dose: 30 mg Dimethicone (Proshield Plus Skin Protectant) 1 applic TOP Q12@0500,1700 [facility] Last Admin: 05/21/18 06:07 Dose: 1 applic Enoxaparin Sodium (Lovenox) 40 mg SC DAILY [facility] PRN Reason: Protocol Last Admin: 05/20/18 08:59 Dose: 40 mg Insulin Human Lispro (Humalog) 0 units SC ACHS [facility] PRN Reason: Protocol Last Admin: 05/21/18 07:56 Dose: Not Given Levothyroxine Sodium (Synthroid) 175 mcg PO DAILY@0630 [facility] Last Admin: 05/21/18 06:12 Dose: 175 mcg Losartan Potassium (Cozaar) 25 mg PO DAILY [facility] Last Admin: 05/21/18 09:13 Dose: 25 mg Nystatin (Nystop Topical Powder) 1 applic TOP TID@0900,1300,2100 [facility] Last Admin: 05/20/18 22:11 Dose: 1 appl Olopatadine HCl (Patanol 0.1% Opht Soln) 1 drop OU DAILY [facility] Last Admin: 05/21/18 09:11 Dose: 1 drop Ondansetron HCl (Zofran Odt) 4 mg PO Q6 PRN PRN Reason: Nausea/Vomiting Last Admin: 05/10/18 22:10 Dose: 4 mg Pantoprazole Sodium (Protonix Ec Tab) 40 mg PO DAILY [facility] Last Admin: 05/21/18 09:10 Dose: 40 mg Saccharomyces Boulardii (Florastor) 250 mg PO BID [facility] Last Admin: 05/21/18 09:10 Dose: 250 mg Simethicone (Mylicon Chew Tab) 80 mg PO QID PRN PRN Reason: Flatulence Last Admin: 05/20/18 02:46 Dose: 80 mg - Labs Labs: 05/21/18 08:30 05/21/18 08:30 PT 15.7 Seconds (9.8-13.1) H 04/18/18 05:20 INR 1.4 (0.9-1.2) H 04/18/18 05:20 APTT 35.4 Seconds (25.6-37.1) 04/18/18 05:20 - Additional Findings Additional findings: Physical exam: Constitutional- cooperative, awake, alert Head- + Right forehead contusion, right supraorbital hematoma, PERRL Eye- PERRL, EOMI ENT- normal exam, MMM. Neck- normal inspection, supple, no JVD Respiratory- CTAB, no wheezes rales rhonchi Cardiovascular- irregular rate and rhythm, +S1, +S2 no MRG GI/Abdominal- + ostomy, some soft tissue edema normal bowel sounds, soft, no mass, no hsm Skin- warm, dry Extremities Exam- normal capillary refill, normal inspection Neurological Exam- alert, awake, oriented Psych- normal mood, normal affect Assessment and Plan - Assessment and Plan (Free Text) Plan: 87 yo female with history of CHF, COPD, AFib, HTN, DM2 and Hypothyroidism had colon resection with colostomy on 02/25/2018 after perforating colon during colonoscopy. Post op days were uneventful and patient was discharged in stable condition 8 days later. A month later patient was brought back because of abdominal pain associated with purulent discharge from the surgical wound. CT scan of abdomen showed large pelvic abscess. Patient was started on IV antibiotics and IR drained the abscess followed with wound vac placement to help wound closure. Repeat CT scan showed reduction of pelvic abscess and new recto-vaginal fistula. Patient was transferred to TCU for continuation of IV antibiotic and therapy. 1. Pelvic Abscess and Abdominal Wound Abscess at surgical site wound culture grew Proteus and ESBL E Coli off antibiotics per ID recommendation Dr Garcia on ID consult 2. Fall with right forehead contusion and ecchymosis CT head negative for ICH or fx Neuro checks being performed, q 4 hours x 24 hours, no new neuro deficits noted Apply ice to area PRN Tylenol PRN 3. Diabetes mellitus, type II BS controlled continue accuchek ACHS with Lispro coverage 4. CHF, diastolic dysfunction continue Losartan 5. Atrial fibrillation rate controlled continue Cardizem 6. Hypokalemia, mild 3.2 Kdur 40 meq given 7. COPD asymptomatic on Duoneb and Pulmicort 8. Hypertension BP stable continue Cardizem and Losartan 8. Hypothyroidism continue Levothyroxine 9. DVT prophylaxis Resume Lovenox in AM, held due to trauma from fall
[2018-05-22] MEDS: Levothyroxine 175 MCG TAB PO SCH (06:30)
[2018-05-22] MEDS: Proshield Plus GEL TOP SCH ×2 (06:30→16:55)
[2018-05-22] MEDS: Desoximetasone 0.25% Cream(15 gm) TOP SCH ×2 (06:31→16:56)
[2018-05-22 06:34] LABS: HEMOGLOBIN 10.4 g/dL (12.0-16.0); MEAN CELL VOLUME 96.6 fl (81.0-99.0); MEAN CORPUSCULAR HEMOGLOBIN 32.8 pg (27.0-31.0); MEAN CORPUSCULAR HGB CONC 33.9 g/dL (33.0-37.0); RBC 3.17 Mil/uL (3.80-5.20); RED CELL DISTRIBUTION WIDTH 18.7 % (11.5-14.5); WHITE BLOOD COUNT 8.4 K/uL (4.8-10.8)
[2018-05-22 06:53] LABS: BLOOD UREA NITROGEN 11 mg/dl (7-17); CALCIUM 8.2 mg/dL (8.4-10.2); GFR AFRICAN-AMERICAN > 60; GFR NON-AFRICAN AMERICAN > 60
--- NOTE | 2018-05-22 07:06 | CP.PCM.PN ---
Subjective - Date & Time of Evaluation Date of Evaluation: 05/22/18 Time of Evaluation: 08:30 - Subjective Subjective: Patient seen and examined at bedside with Dr. Sorto. She was lying comfortably and reports no over night events. She states that she needs to go home because she has to pay her bills and help her (who is also in the hospital). She reports that she can see well and she is not complaining of any headache or pain from her fall two nights ago. She has no other complaints today. She denies chest pain, dyspnea, headache, vision changes, constipation, diarrhea, nausea, vomiting, and abdominal pain. Objective - Vital Signs/Intake and Output Vital Signs (last 24 hours): Temp Pulse Resp BP Pulse Ox 96.8 F L 91 H 20 128/73 96 05/21/18 19:57 05/21/18 21:49 05/21/18 19:57 05/21/18 19:57 05/21/18 19:57 - Medications Medications: Current Medications Acetaminophen (Tylenol 325mg Tab) 650 mg PO 0900,2100 [facility] Last Admin: 05/21/18 21:53 Dose: 650 mg Albuterol/Ipratropium (Duoneb 3 Mg/0.5 Mg (3 Ml) Ud) 3 ml INH RQID [facility] Last Admin: 05/21/18 19:13 Dose: 3 ml Atorvastatin Calcium (Lipitor) 40 mg PO 2100 [facility] Last Admin: 05/21/18 22:32 Dose: 40 mg Desoximetasone (Topicort 0.25%) 1 ea TOP Q12@0500,1700 [facility] Last Admin: 05/22/18 06:31 Dose: 1 applic Diltiazem HCl (Cardizem) 30 mg PO QID [facility] Last Admin: 05/21/18 21:49 Dose: 30 mg Dimethicone (Proshield Plus Skin Protectant) 1 applic TOP Q12@0500,1700 [facility] Last Admin: 05/22/18 06:30 Dose: 1 applic Enoxaparin Sodium (Lovenox) 40 mg SC DAILY [facility] PRN Reason: Protocol Last Admin: 05/20/18 08:59 Dose: 40 mg Insulin Human Lispro (Humalog) 0 units SC ACHS [facility] PRN Reason: Protocol Last Admin: 05/21/18 22:35 Dose: Not Given Levothyroxine Sodium (Synthroid) 175 mcg PO DAILY@0630 [facility] Last Admin: 05/22/18 06:30 Dose: 175 mcg Losartan Potassium (Cozaar) 25 mg PO DAILY [facility] Last Admin: 05/21/18 09:13 Dose: 25 mg Nystatin (Nystop Topical Powder) 1 applic TOP TID@0900,1300,2100 [facility] Last Admin: 05/21/18 21:49 Dose: 1 appl Olopatadine HCl (Patanol 0.1% Opht Soln) 1 drop OU DAILY [facility] Last Admin: 05/21/18 09:11 Dose: 1 drop Ondansetron HCl (Zofran Odt) 4 mg PO Q6 PRN PRN Reason: Nausea/Vomiting Last Admin: 05/10/18 22:10 Dose: 4 mg Pantoprazole Sodium (Protonix Ec Tab) 40 mg PO DAILY [facility] Last Admin: 05/21/18 09:10 Dose: 40 mg Saccharomyces Boulardii (Florastor) 250 mg PO BID [facility] Last Admin: 05/21/18 16:56 Dose: 250 mg Simethicone (Mylicon Chew Tab) 80 mg PO QID PRN PRN Reason: Flatulence Last Admin: 05/20/18 02:46 Dose: 80 mg - Labs Labs: 05/22/18 06:21 05/22/18 06:21 PT 15.7 Seconds (9.8-13.1) H 04/18/18 05:20 INR 1.4 (0.9-1.2) H 04/18/18 05:20 APTT 35.4 Seconds (25.6-37.1) 04/18/18 05:20 - Constitutional Appears: Well, Non-toxic, No Acute Distress - Head Exam Head Exam: NORMAL INSPECTION - Eye Exam Eye Exam: Normal appearance - ENT Exam ENT Exam: Mucous Membranes Moist - Neck Exam Neck Exam: Normal Inspection. absent: Lymphadenopathy, Tenderness, Thyromegaly - Respiratory Exam Respiratory Exam: Clear to Ausculation Bilateral, NORMAL BREATHING PATTERN. absent: Chest Wall Tenderness, Prolonged Expiratory Phase, Rales, Rhonchi, Wheezes, Respiratory Distress, Stridor - Cardiovascular Exam Cardiovascular Exam: REGULAR RHYTHM, RRR, +S1, +S2. absent: Diastolic murmur, Gallop, Rubs, Murmur - GI/Abdominal Exam GI & Abdominal Exam: Distended, Soft, Normal Bowel Sounds. absent: Guarding, Tenderness, Organomegaly, Pulsatile Mass, Rebound - Extremities Exam Extremities Exam: Normal Capillary Refill, Normal Inspection - Neurological Exam Neurological Exam: Alert, Awake, Oriented x3 - Psychiatric Exam Psychiatric exam: Normal Affect, Normal Mood - Skin Skin Exam: Dry, Normal Color, Warm Assessment and Plan (1) Abdominal wall abscess at site of surgical wound Assessment & Plan: F/U wound with Dr. Montaño outpatient next week. Status: Acute (2) Pelvic abscess Assessment & Plan: CT abd: decreased size of culc de sac cavity about 40%. Antibiotics Discontinued. Status: Acute (3) COPD (chronic obstructive pulmonary disease) Assessment & Plan: Stable. Status: Chronic
[2018-05-22] MEDS: Albuterol-Ipratrop 3 mg / 0.5 (3 ml) UD INH SCH ×3 (07:35→19:21)
[2018-05-22] MEDS: Insulin Lispro (humaLOG) 100 Units/ml Inj SC SCH ×4 (07:37→22:38)
[2018-05-22] MEDS: Saccharomyces Boulardi 250 mg Cap PO SCH ×2 (08:42→16:53)
[2018-05-22] MEDS: Olopatadine 0.1% Opht SOLN OU SCH (08:43)
[2018-05-22] MEDS: Pantoprazole 40 mg EC Tab PO SCH (08:45)
[2018-05-22] MEDS: Enoxaparin 40 mg Syringe SC SCH (16:54)
[2018-05-22 17:20] VITALS: RESP 20
[2018-05-23] MEDS: Insulin Lispro (humaLOG) 100 Units/ml Inj SC SCH ×4 (06:48→21:42)
[2018-05-23] MEDS: Levothyroxine 175 MCG TAB PO SCH (06:49)
[2018-05-23] MEDS: Proshield Plus GEL TOP SCH ×2 (06:50→16:21)
[2018-05-23] MEDS: Desoximetasone 0.25% Cream(15 gm) TOP SCH (06:50)
[2018-05-23] MEDS: Albuterol-Ipratrop 3 mg / 0.5 (3 ml) UD INH SCH ×4 (07:41→19:49)
[2018-05-23] MEDS: Saccharomyces Boulardi 250 mg Cap PO SCH ×2 (08:25→16:17)
[2018-05-23] MEDS: Olopatadine 0.1% Opht SOLN OU SCH (08:26)
[2018-05-23] MEDS: Enoxaparin 40 mg Syringe SC SCH (08:26)
[2018-05-23] MEDS: Pantoprazole 40 mg EC Tab PO SCH (08:29)
[2018-05-24] MEDS: Proshield Plus GEL TOP SCH ×2 (05:25→17:43)
[2018-05-24] MEDS: Levothyroxine 175 MCG TAB PO SCH (05:31)
[2018-05-24] MEDS: Albuterol-Ipratrop 3 mg / 0.5 (3 ml) UD INH SCH ×4 (07:14→19:16)
[2018-05-24] MEDS: Insulin Lispro (humaLOG) 100 Units/ml Inj SC SCH ×4 (07:49→21:21)
[2018-05-24] MEDS: Saccharomyces Boulardi 250 mg Cap PO SCH ×2 (08:33→17:33)
[2018-05-24] MEDS: Olopatadine 0.1% Opht SOLN OU SCH (08:35)
[2018-05-24] MEDS: Pantoprazole 40 mg EC Tab PO SCH (08:35)
[2018-05-24] MEDS: Enoxaparin 40 mg Syringe SC SCH (08:36)
[2018-05-25] MEDS: Proshield Plus GEL TOP SCH ×2 (05:15→16:32)
[2018-05-25] MEDS: Levothyroxine 175 MCG TAB PO SCH (05:29)
[2018-05-25] MEDS: Insulin Lispro (humaLOG) 100 Units/ml Inj SC SCH ×3 (06:32→16:16)
[2018-05-25] MEDS: Albuterol-Ipratrop 3 mg / 0.5 (3 ml) UD INH SCH (07:20)
[2018-05-25] MEDS: Olopatadine 0.1% Opht SOLN OU SCH (08:17)
[2018-05-25] MEDS: Saccharomyces Boulardi 250 mg Cap PO SCH ×2 (08:18→16:32)
[2018-05-25] MEDS: Enoxaparin 40 mg Syringe SC SCH (08:18)
[2018-05-25] MEDS: Pantoprazole 40 mg EC Tab PO SCH (08:18)
--- NOTE | 2018-05-25 10:47 | CP.PCM.PN ---
Subjective - Date & Time of Evaluation Date of Evaluation: 05/25/18 Time of Evaluation: 10:46 - Subjective Subjective: Seen on rounds in morning. Seated in wheelchair in her room. Mood appears to be good. She is anxious for discharge to home today. Jaimee-orbital ecchymosis on the right is pronounced. Swelling of eyelid is significant, but not shut. She claims vision is okay on the right. Abdominal discomfort is minimal. colostomy is functioning well. Vaginal drainage is minimal, if any at all. Vital signs have remained stable, she remains afebrile. Discussed discharge with the hospitalist. All meds will be renewed. Will follow up as outpatient in my office. Objective - Vital Signs/Intake and Output Vital Signs (last 24 hours): Temp Pulse Resp BP Pulse Ox 97.2 F L 86 20 138/67 100 05/25/18 08:18 05/25/18 08:19 05/25/18 08:18 05/25/18 08:19 05/25/18 08:18 - Medications Medications: Current Medications Acetaminophen (Tylenol 325mg Tab) 650 mg PO 0900,2100 [facility] Last Admin: 05/25/18 08:19 Dose: Not Given Atorvastatin Calcium (Lipitor) 40 mg PO 2100 [facility] Last Admin: 05/24/18 21:21 Dose: 40 mg Diltiazem HCl (Cardizem) 30 mg PO QID [facility] Last Admin: 05/25/18 08:19 Dose: 30 mg Dimethicone (Proshield Plus Skin Protectant) 1 applic TOP Q12@0500,1700 [facility] Last Admin: 05/25/18 05:15 Dose: 1 applic Enoxaparin Sodium (Lovenox) 40 mg SC DAILY [facility] PRN Reason: Protocol Last Admin: 05/25/18 08:18 Dose: 40 mg Insulin Human Lispro (Humalog) 0 units SC ACHS [facility] PRN Reason: Protocol Last Admin: 05/25/18 06:32 Dose: Not Given Levothyroxine Sodium (Synthroid) 175 mcg PO DAILY@0630 [facility] Last Admin: 05/25/18 05:29 Dose: 175 mcg Losartan Potassium (Cozaar) 25 mg PO DAILY [facility] Last Admin: 05/25/18 08:19 Dose: 25 mg Olopatadine HCl (Patanol 0.1% Opht Soln) 1 drop OU DAILY [facility] Last Admin: 05/25/18 08:17 Dose: 1 drop Ondansetron HCl (Zofran Odt) 4 mg PO Q6 PRN PRN Reason: Nausea/Vomiting Last Admin: 05/10/18 22:10 Dose: 4 mg Pantoprazole Sodium (Protonix Ec Tab) 40 mg PO DAILY [facility] Last Admin: 05/25/18 08:18 Dose: 40 mg Saccharomyces Boulardii (Florastor) 250 mg PO BID [facility] Last Admin: 05/25/18 08:18 Dose: 250 mg Simethicone (Mylicon Chew Tab) 80 mg PO QID PRN PRN Reason: Flatulence Last Admin: 05/20/18 02:46 Dose: 80 mg - Labs Labs: 05/22/18 06:21 05/22/18 06:21 PT 15.7 Seconds (9.8-13.1) H 04/18/18 05:20 INR 1.4 (0.9-1.2) H 04/18/18 05:20 APTT 35.4 Seconds (25.6-37.1) 04/18/18 05:20 Assessment and Plan (1) Pelvic abscess Status: Acute (2) Anemia Status: Chronic (3) COPD (chronic obstructive pulmonary disease) Status: Chronic
--- NOTE | 2018-05-25 11:14 | CP.PCM.DIS ---
Provider - Provider Date of Admission: 04/17/18 19:11 Attending physician: Sonido Mullen MD Time Spent in preparation of Discharge (in minutes): 35 Diagnosis - Discharge Diagnosis (1) Abdominal wall abscess at site of surgical wound Status: Acute Priority: High Hospital Course - Lab Results Lab Results: Most Recent Lab Values WBC 8.4 K/uL (4.8-10.8) 05/22/18 06:21 RBC 3.17 Mil/uL (3.80-5.20) L 05/22/18 06:21 Hgb 10.4 g/dL (12.0-16.0) L 05/22/18 06:21 Hct 30.6 % (34.0-47.0) L 05/22/18 06:21 MCV 96.6 fl (81.0-99.0) 05/22/18 06:21 MCH 32.8 pg (27.0-31.0) H 05/22/18 06:21 MCHC 33.9 g/dL (33.0-37.0) 05/22/18 06:21 RDW 18.7 % (11.5-14.5) H 05/22/18 06:21 Plt Count 274 K/uL (130-400) 05/22/18 06:21 MPV 8.3 fl (7.2-11.7) 05/21/18 08:30 Neut % (Auto) 36.6 % (50.0-75.0) L 05/21/18 08:30 Lymph % (Auto) 47.1 % (20.0-40.0) H 05/21/18 08:30 [place] % (Auto) 6.2 % (0.0-10.0) 05/21/18 08:30 Eos % (Auto) 9.5 % (0.0-4.0) H 05/21/18 08:30 Baso % (Auto) 0.6 % (0.0-2.0) 05/21/18 08:30 Neut # (Auto) 3.0 K/uL (1.8-7.0) 05/21/18 08:30 Lymph # (Auto) 3.9 K/uL (1.0-4.3) 05/21/18 08:30 [place] # (Auto) 0.5 K/uL (0.0-0.8) 05/21/18 08:30 Eos # (Auto) 0.8 K/uL (0.0-0.7) H 05/21/18 08:30 Baso # (Auto) 0.0 K/uL (0.0-0.2) 05/21/18 08:30 PT 15.7 Seconds (9.8-13.1) H 04/18/18 05:20 INR 1.4 (0.9-1.2) H 04/18/18 05:20 APTT 35.4 Seconds (25.6-37.1) 04/18/18 05:20 Sodium 136 mmol/l (132-148) 05/22/18 06:21 Potassium 4.0 MMOL/L (3.6-5.0) 05/22/18 06:21 Chloride 104 mmol/L (98-107) 05/22/18 06:21 Carbon Dioxide 22 mmol/L (22-30) 05/22/18 06:21 Anion Gap 14 (10-20) 05/22/18 06:21 BUN 11 mg/dl (7-17) 05/22/18 06:21 Creatinine 0.4 mg/dl (0.7-1.2) L 05/22/18 06:21 Est GFR ( Amer) > 60 05/22/18 06:21 Est GFR (Non-Af Amer) > 60 05/22/18 06:21 POC Glucose (mg/dL) 187 mg/dL (65-110) H 05/25/18 10:44 Random Glucose 112 mg/dL (65-105) H 05/22/18 06:21 Calcium 8.2 mg/dL (8.4-10.2) L 05/22/18 06:21 Total Bilirubin 0.6 mg/dl (0.2-1.3) 05/21/18 08:30 AST 107 U/L (14-36) H 05/21/18 08:30 ALT 76 U/L (9-52) H 05/21/18 08:30 Alkaline Phosphatase 188 U/L (38-126) H 05/21/18 08:30 Total Protein 6.7 G/DL (6.3-8.2) 05/21/18 08:30 Albumin 3.0 g/dL (3.5-5.0) L 05/21/18 08:30 Globulin 3.7 gm/dL (2.2-3.9) 05/21/18 08:30 Albumin/Globulin Ratio 0.8 (1.0-2.1) L 05/21/18 08:30 Urine Color Yellow (YELLOW) 05/07/18 19:45 Urine Clarity Clear (Clear) 05/07/18 19:45 Urine pH 7.0 (5.0-8.0) 05/07/18 19:45 Ur Specific [place] 1.019 (1.003-1.030) 05/07/18 19:45 Urine Protein 30 mg/dL (NEGATIVE) 05/07/18 19:45 Urine Glucose (UA) Neg mg/dL (Normal) 05/07/18 19:45 Urine Ketones Trace mg/dL (NEGATIVE) 05/07/18 19:45 Urine Blood Negative (NEGATIVE) 05/07/18 19:45 Urine Nitrate Negative (NEGATIVE) 05/07/18 19:45 Urine Bilirubin Negative (NEGATIVE) 05/07/18 19:45 Urine Urobilinogen 0.2-1.0 mg/dL (0.2-1.0) 05/07/18 19:45 Ur Leukocyte Esterase Neg Olvin/uL (Negative) 05/07/18 19:45 Urine RBC (Auto) 3 /hpf (0-3) 05/07/18 19:45 Urine Microscopic WBC 3 /hpf (0-5) 05/07/18 19:45 Urine Bacteria Rare (<OCC) 05/07/18 19:45 - Hospital Course Hospital Course: 87 yo female with history of CHF, COPD, AFib, HTN, DM2 and Hypothyroidism had colon resection with colostomy on 02/25/2018 after perforating colon during colonoscopy. Post op days were uneventful and patient was discharged in stable condition 8 days later. A month later patient was brought back because of abdominal pain associated with purulent discharge from the surgical wound. CT scan of abdomen showed large pelvic abscess. Patient was started on IV antibiotics and IR drained the abscess followed with wound vac placement to help wound closure. Repeat CT scan showed reduction of pelvic abscess and new recto-vaginal fistula. Patient was transferred to TCU for continuation of IV antibiotic and therapy, this was completed today on 05/25. Patient wants to go home, has not been home for four months now, wants to try being home. Spoke with PMD who was rounding today Dr. Sorto on the unit. 1. Pelvic Abscess and Abdominal Wound Abscess at surgical site wound culture grew Proteus and ESBL E Coli completed antibiotics per ID recommendation Dr Garcia 2. Fall with right forehead contusion and ecchymosis CT head negative for ICH or fx 3. Diabetes mellitus, type II 4. CHF, diastolic dysfunction continue Losartan 5. Atrial fibrillation rate controlled continue Cardizem its qid for now Dr. sorto to switch to long acting as out patient. 6. Hypokalemia resolved 7. COPD asymptomatic on Duoneb and Pulmicort 8. Hypertension BP stable continue Cardizem and Losartan 8. Hypothyroidism continue Levothyroxine Discharge Exam - Head Exam Head Exam: NORMAL INSPECTION Additional comments: NAD sitting in wheel chair used walker at times - Eye Exam Eye Exam: absent: Normal appearance Additional comments: eechymoses post fall - ENT Exam ENT Exam: Mucous Membranes Dry - Respiratory Exam Respiratory Exam: Clear to PA & Lateral, NORMAL BREATHING PATTERN. absent: Accessory Muscle Use, Wheezes - Cardiovascular Exam Cardiovascular Exam: REGULAR RHYTHM, +S1, +S2 - Neurological Exam Neurological exam: Alert, Oriented x3 - Psychiatric Exam Psychiatric exam: Normal Affect Discharge Plan - Discharge Medications Prescriptions: Albuterol/Ipratropium [Duoneb 3 mg/0.5 mg (3 ml) UD] 3 ml INH QID 30 Days #120 neb Atorvastatin [Lipitor] 40 mg PO QPM #30 tab diltiaZEM [Cardizem] 30 mg PO QID 30 Days #120 tab Dimethicone [Proshield Plus Skin Protectant] 1 applic TOP Q12@0500,1700 #30 gel Fluticasone/Vilanterol [Breo Ellipta 200-25 Mcg INH] 1 puff IH DAILY 30 Days # 30 blst.w.dev Levothyroxine [Synthroid] 175 mcg PO DAILY@0630 30 Days #30 tab Losartan [Cozaar] 25 mg PO DAILY 30 Days #30 tab Olopatadine HCl [Pazeo] 2.5 ml BOTHEYES DAILY 30 Days #1 bottle Olopatadine HCl [Pazeo] 1 drop EACHEYE DAILY #1 bottle Ondansetron ODT [Zofran ODT] 4 mg PO Q6 PRN 30 Days #120 odt PRN Reason: Nausea/Vomiting Pantoprazole [Protonix EC Tab] 40 mg PO DAILY #1 ect Saccharomyces Boulardi [Florastor] 250 mg PO BID 30 Days #60 cap Simethicone [Mylicon Chew Tab] 80 mg PO QID PRN 30 Days #120 chew PRN Reason: Flatulence - Follow Up Plan Condition: GOOD Disposition: HOME/ ROUTINE Additional Instructions: Resume Diet. Replace abdominal wound dressing as needed. May be discharged back to TCU when PACU D/C criteria has been met Please follow up with Dr. Montaño in next weeks after discharge home There is a single Yoli drain in the lower abdominal incision- this will stay in place until it is re-assessed by Dr. Montaño next week You may cover with a gauze pad and tape into place It is ok to shower after removing the gauze dressing, wash gently with soap and water; after the shower, replace the dressing Do not sit in a bath or hot tub Referrals: Hemant Sorto MD [Staff Provider] - Peter Montaño MD [Staff Provider] - Ricardo Garcia MD [Staff Provider] - Nato Arriaga MD [Staff Provider] -
[2018-05-25] MEDS: Simethicone 80 mg Chewtab PO PRN (12:29)
[2018-05-25 16:19] VITALS: BP 133/66; PULSE 80; TEMP 98.1; O2SAT 98
== END 2018-05-25 17:30 | disposition home health service (06) | DRG 758 ==
LOC: H.TCU 19:11
PROVIDERS: ADMIT Hospitalist; ATTEND Hospitalist
PROC: F08Z1FZ Dressing Techniques Treatment using Assistive, Adaptive, Supportive or Protective Equipment (ICD-10-PCS; principal; 2018-04-17)
PROC: F08Z0FZ Bathing/Showering Techniques Treatment using Assistive, Adaptive, Supportive or Protective Equipment (ICD-10-PCS; 2018-04-17)
PROC: F07Z9FZ Gait Training/Functional Ambulation Treatment using Assistive, Adaptive, Supportive or Protective Equipment (ICD-10-PCS; 2018-04-17)
PROC: F07Z8FZ Transfer Training Treatment using Assistive, Adaptive, Supportive or Protective Equipment (ICD-10-PCS; 2018-04-17)
PROC: F07Z5FZ Bed Mobility Treatment using Assistive, Adaptive, Supportive or Protective Equipment (ICD-10-PCS; 2018-04-17)
PROC: F07L6FZ Therapeutic Exercise Treatment of Musculoskeletal System - Lower Back / Lower Extremity using Assistive, Adaptive, Supportive or Protective Equipment (ICD-10-PCS; 2018-04-17)
DX: N73.9 Female pelvic inflammatory disease, unspecified (principal); I50.32 Chronic diastolic (congestive) heart failure; L02.211 Cutaneous abscess of abdominal wall; N82.3 Fistula of vagina to large intestine; B96.20 Unspecified Escherichia coli [E. coli] as the cause of diseases classified elsewhere; B96.4 Proteus (mirabilis) (morganii) as the cause of diseases classified elsewhere; E03.9 Hypothyroidism, unspecified; E11.9 Type 2 diabetes mellitus without complications; E78.00 Pure hypercholesterolemia, unspecified; I11.0 Hypertensive heart disease with heart failure; I48.2 Chronic atrial fibrillation; J44.9 Chronic obstructive pulmonary disease, unspecified; J45.20 Mild intermittent asthma, uncomplicated; Z93.3 Colostomy status; E66.9 Obesity, unspecified; Z68.31 Body mass index [BMI] 31.0-31.9, adult; D64.9 Anemia, unspecified; Z16.12 Extended spectrum beta lactamase (ESBL) resistance; G47.33 Obstructive sleep apnea (adult) (pediatric); E87.6 Hypokalemia; S00.83XA Contusion of other part of head, initial encounter; W01.0XXA Fall on same level from slipping, tripping and stumbling without subsequent striking against object, initial encounter; F32.9 Major depressive disorder, single episode, unspecified; M19.90 Unspecified osteoarthritis, unspecified site

== ENCOUNTER 2018-05-29 14:43 | Inpatient (IN) | payer MEDICARE, MEDICAID ==
[2018-05-29 14:43] VITALS: PULSE 94; BMI 28.9
[2018-05-29] MEDS ORDERED: Iohexol 240 (50 ml) PO ONE (15:42)
[2018-05-29 16:20] LABS: BASO # 0.1 K/uL (0.0-0.2); BASO % 1.3 % (0.0-2.0); EOS # 0.4 K/uL (0.0-0.7); EOS % 5.4 % (0.0-4.0); HEMOGLOBIN 10.7 g/dL (12.0-16.0); LYMPH # 2.6 K/uL (1.0-4.3); LYMPH % 33.9 % (20.0-40.0); MEAN CORPUSCULAR HEMOGLOBIN 32.8 pg (27.0-31.0); MEAN CORPUSCULAR HGB CONC 33.1 g/dL (33.0-37.0); MEAN PLATELET VOLUME 8.2 fl (7.2-11.7); MONO # 0.5 K/uL (0.0-0.8); MONO % 6.7 % (0.0-10.0); NEUT % 52.7 % (50.0-75.0); NRBC % 0.1 % (0.0-0.0); RBC 3.26 Mil/uL (3.80-5.20); RED CELL DISTRIBUTION WIDTH 18.6 % (11.5-14.5); WHITE BLOOD COUNT 7.6 K/uL (4.8-10.8)
[2018-05-29] MEDS ORDERED: Iohexol 240 (50 ml) ONE (16:25)
[2018-05-29 16:29] LABS: INR 1.2 (0.9-1.2); PARTIAL THROMBOPLASTIN TIME 33.8 Seconds (25.6-37.1); PROTHROMBIN TIME 13.4 Seconds (9.8-13.1)
[2018-05-29 16:33] LABS: ALB/GLOB RATIO 0.9 (1.0-2.1); ALBUMIN 3.2 g/dL (3.5-5.0); ALT/SGPT 32 U/L (9-52); AST/SGOT 40 U/L (14-36); BLOOD UREA NITROGEN 8 mg/dl (7-17); CALCIUM 8.7 mg/dL (8.4-10.2); GFR AFRICAN-AMERICAN > 60; GFR NON-AFRICAN AMERICAN > 60
--- NOTE | 2018-05-29 17:17 | ED PDOC ---
HPI: General Adult Time Seen by Provider: 05/29/18 15:01 Chief Complaint (Nursing): Abdominal Pain Chief Complaint (Provider): abdominal wound History Per: Patient, Family, Other (outpt Dr Sung granados) History/Exam Limitations: other (poor historian) Current Symptoms Are (Timing): Still Present Severity: Moderate Recently: Treated By A Physician, Hospitalized Additional Complaint(s): 87yo female presents to ED on rec of homevisit MD Dr Almaraz who states abdominal wound has tenderness and drainage concerned for worsening infection. Prior charts reviewed revealing complicated hospitalization for abdominal wall abscess and pelvic abscess s/p colostomy. Patient denies current fever. D/w surgical residents, state no Abx as completed in house, was pending followup w Dr Loya to remove abdominal wound drain. Past Medical History Reviewed: Historical Data, Nursing Documentation, Vital Signs Vital Signs: Last Vital Signs Temp 97.8 F 06/02/18 09:00 Pulse 85 06/02/18 13:06 Resp 20 06/02/18 13:06 BP 137/80 06/02/18 13:06 Pulse Ox 98 06/02/18 13:06 - Medical History PMH: Anemia, Arthritis (severe DJD B knees R > L), Asthma, Atrial Fibrillation, Bronchitis, CAD, CHF, COPD (home O2, asthma, bronchitis), Depression, Diabetes ( type II), Diverticulitis, HTN, Hypercholesterolemia, Hyperthyroidism, Hypothyroidism (thyroid dz), Pneumonia, Sleep Apnea Denies: HIV, Chronic Kidney Disease - Surgical History Surgical History: Back Surgery, Cholecystectomy Denies: CABG - Family History Family History: States: Unknown Family Hx, Hypertension - Immunization History Hx Tetanus Toxoid Vaccination: No Hx Influenza Vaccination: Yes Hx Pneumococcal Vaccination: Yes - Home Medications Home Medications: Ambulatory Orders Medication Instructions Recorded Albuterol/Ipratropium [Duoneb 3 3 ml INH QID 30 Days #120 neb 05/25/18 mg/0.5 mg (3 ml) UD] Atorvastatin [Lipitor] 40 mg PO QPM #30 tab 05/25/18 Dimethicone [Proshield Plus Skin 1 applic TOP Q12@0500,1700 #30 gel 05/25/18 Protectant] Fluticasone/Vilanterol [Breo 1 puff IH DAILY 30 Days #30 05/25/18 Ellipta 200-25 Mcg INH] blst.w.dev Levothyroxine [Synthroid] 175 mcg PO DAILY@0630 30 Days #30 05/25/18 tab Losartan [Cozaar] 25 mg PO DAILY 30 Days #30 tab 05/25/18 Olopatadine HCl [Pazeo] 1 drop EACHEYE DAILY #1 bottle 05/25/18 Ondansetron ODT [Zofran ODT] 4 mg PO Q6 PRN 30 Days #120 odt 05/25/18 Pantoprazole [Protonix EC Tab] 40 mg PO DAILY #1 ect 05/25/18 Saccharomyces Boulardi [Florastor] 250 mg PO BID 30 Days #60 cap 05/25/18 Simethicone [Mylicon Chew Tab] 80 mg PO QID PRN 30 Days #120 chew 05/25/18 diltiaZEM [Cardizem] 30 mg PO QID 30 Days #120 tab 05/25/18 Ciprofloxacin [Cipro] 500 mg PO Q12 #14 tab 06/02/18 - Allergies Allergies/Adverse Reactions: Allergies Allergy/AdvReac Type Severity Reaction Status Date / Time No Known Allergies Allergy Verified 05/11/18 13:23 Review of Systems Constitutional: Negative for: Fever Cardiovascular: Negative for: Chest Pain Respiratory: Negative for: Shortness of Breath Gastrointestinal: Positive for: Abdominal Pain. Negative for: Vomiting Genitourinary Female: Negative for: Dysuria Musculoskeletal: Positive for: Back Pain. Negative for: Neck Pain Skin: Negative for: Rash Neurological: Positive for: Dizziness. Negative for: Headache Physical Exam - Reviewed Nursing Documentation Reviewed: Yes Vital Signs Reviewed: Yes - Physical Exam Appears: Positive for: Well, Non-toxic, No Acute Distress Head Exam: Positive for: NORMAL INSPECTION, NORMOCEPHALIC. Negative for: ATRAUMATIC (old appearing facial trauma) Skin: Positive for: Normal Color, Warm, DRY Eye Exam: Positive for: EOMI, Normal appearance, PERRL ENT: Positive for: Normal ENT Inspection Neck: Positive for: Normal, Painless ROM Cardiovascular/Chest: Positive for: Regular Rate, Rhythm Respiratory: Positive for: CNT, Normal Breath Sounds Gastrointestinal/Abdominal: Positive for: Soft, Tenderness, Other (colostomy intact. surrounding area erythematous, indurated, ventral incision w drain mildly pustulent material). Negative for: Guarding Back: Positive for: Normal Inspection Extremity: Positive for: Normal ROM. Negative for: Deformity Neurologic/Psych: Positive for: Alert, Oriented. Negative for: Motor/Sensory Deficits - Laboratory Results Result Diagrams: 06/02/18 06:05 06/02/18 06:05 - ECG O2 Sat by Pulse Oximetry: 95 Medical Decision Making Medical Decision Making: workup for r/o recollection of abscess initiated Disposition - Clinical Impression Clinical Impression: Cellulitis - Patient ED Disposition Is Patient to be Admitted: Transfer of Care - Disposition Disposition: Transfer of Care Disposition Time: 19:00 Condition: STABLE Patient Signed Over To: Chucho Mcdonough Handoff Comments: pending CTs and surg re-eval
[2018-05-29] MEDS ORDERED: Sodium Chloride 0.9% 50 ML IV ONE (19:11)
[2018-05-29] MEDS ORDERED: Iodixanol 320 MG/ML 100 ML BOTTLE IV ONE (19:11)
--- NOTE | 2018-05-29 19:33 | ED PDOC ---
- Laboratory Results Result Diagrams: 05/29/18 16:13 05/29/18 16:13 - ECG O2 Sat by Pulse Oximetry: 95 (RA) Pulse Ox Interpretation: Normal Medical Decision Making Medical Decision Making: Time: [address] Hawthorne pending CT studies. Time: 2021 CT Abdomen/Pelvis FINDINGS: Tubes, lines and devices: Stable postoperative changes and tube placement in the umbilical region. Lower thorax: There is bibasilar atelectatic change or scarring. Stable small pericardial effusion. ABDOMEN: Liver: Normal. No mass. Gallbladder and bile ducts: Stable postoperative changes of cholecystectomy. Pancreas: Normal. No ductal dilation. Spleen: Stable splenic cyst measuring a maximum of 10 mm. Adrenals: Normal. No mass. Kidneys and ureters: Stable left renal cysts. Again, the largest left renal cyst measures 2.8 cm and likely a simple cyst. Stomach and bowel: Stable postoperative changes at the rectosigmoid junction. Stable postoperative changes of left lower quadrant colostomy. Stable colonic diverticulosis without evidence for acute diverticulitis. Stable mildly prominent loops of jejunum in the upper abdomen with some airfluid levels, cannot exclude mild focal ileus versus partial small bowel obstruction. Appendix: The appendix is not visible. PELVIS: Bladder: Unremarkable as visualized. Reproductive: Stable postoperative changes of hysterectomy. ABDOMEN and PELVIS: Intraperitoneal space: Normal. No free air. No significant fluid collection. Bones/joints: Stable diffuse osteopenia and degenerative changes of the spine. Soft tissues: Stable loculated fluid collection in the supraumbilical region of the ventral abdominal wall within the subcutaneous fat layer with this collection currently measuring 4.0 x 2.2 cm. Vasculature: Stable atherosclerotic aortic and iliac and femoral artery calcifications Lymph nodes: Normal. No enlarged lymph nodes. IMPRESSION: 1. Stable colonic diverticulosis without evidence for acute diverticulitis. 2. Stable mildly prominent loops of jejunum in the upper abdomen with some air- fluid levels, cannot exclude mild focal ileus versus partial small bowel obstruction. 3. Stable loculated fluid collection in the supraumbilical region of the ventral abdominal wall within the subcutaneous fat layer with this collection currently measuring 4.0 x 2.2 cm. 2030 Results were explained to patient and son. Son related reluctance with discharge and worry about worsening cellulitis to abdominal wall. Will order vanc and place in OBS M/S for abodminal wall cellulitis. Surgery aware of patient. Dr. Neves aware. Scribe Attestation: Documented by Yamileth Oshea, acting as a scribe for Chucho Mcdonough. Provider Scribe Attestation: All medical record entries made by the Scribe were at my direction and personally dictated by me. I have reviewed the chart and agree that the record accurately reflects my personal performance of the history, physical exam, medical decision making, and the department course for this patient. I have also personally directed, reviewed, and agree with the discharge instructions and disposition. Disposition - Clinical Impression Clinical Impression: Cellulitis - POA Present On Arrival: None - Disposition Disposition: Hospitalized as Observation Patient Disposition Time: 20:30 Condition: STABLE
--- NOTE | 2018-05-29 21:16 | CP.PCM.HP ---
History of Present Illness - History of Present Illness History of Present Illness: CC: abd wall cellulitis HPI: This is an 87 y/o female with multiple chronic conditions as noted below who was admitted here to the hospital in 02/2018 for GIB. She had had a perforation of her colon as a complication of colonoscopy, and required surgery. Now she is s/p colostomy. She was here again in 03/2018 for abdominal abscess for which she required a drainage catheter to be placed by IR. Today, she was noted by her home visit physician to have redness/warmth on abdominal wall, and was sent here with concern for cellulitis. No f/c/n/v/d. ROS: 14 systems reviewed, negative other than HPI MHx: Arthritis, Asthma, Atrial Fibrillation, CAD (Questionable), CHF, COPD, Depression, Diabetes (type II), Diverticulitis, HTN, Hypercholesterolemia, Hypothyroidism, Sleep Apnea SHx: Recent bowel surgery earlier this year, cholecystectomy, back surgery Allergies: NKDA Medications: Per med rec Family Hx: HTN in family Social Hx: at a rehab currently; no EtOH no tobacco Surrogate Dec Mkr: Son, info on chart Present on Admission - Present on Admission Any Indicators Present on Admission: No Past Patient History - Infectious Disease Hx of Infectious Diseases: None - Tetanus Immunizations Tetanus Immunization: Unknown - Past Medical History & Family History Past Medical History?: Yes - Past Social History Smoking Status: Former Smoker - CARDIAC Hx Atrial Fibrillation: Yes Hx Congestive Heart Failure: Yes Hx Hypercholesterolemia: Yes Hx Hypertension: Yes - PULMONARY Hx Asthma: Yes Hx Bronchitis: Yes Hx Chronic Obstructive Pulmonary Disease (COPD): Yes (home O2, asthma, bronchitis) Hx Pneumonia: Yes Hx Sleep Apnea: Yes - NEUROLOGICAL Hx Neurological Disorder: No - HEENT Hx HEENT Problems: No - RENAL Hx Chronic Kidney Disease: No - ENDOCRINE/METABOLIC Hx Hyperthyroidism: Yes Hx Hypothyroidism: Yes (thyroid dz) - HEMATOLOGICAL/ONCOLOGICAL Hx Anemia: Yes Hx Human Immunodeficiency Virus (HIV): No - INTEGUMENTARY Hx Dermatological Problems: Yes - MUSCULOSKELETAL/RHEUMATOLOGICAL 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) - GASTROINTESTINAL Hx Diverticulitis: Yes - GENITOURINARY/GYNECOLOGICAL Hx Genitourinary Disorders: No - PSYCHIATRIC Hx Depression: Yes - SURGICAL HISTORY Hx Cholecystectomy: Yes Hx Coronary Artery Bypass Graft: No - ANESTHESIA Hx Anesthesia: Yes Hx Anesthesia Reactions: No Hx Malignant Hyperthermia: No Meds Allergies/Adverse Reactions: Allergies Allergy/AdvReac Type Severity Reaction Status Date / Time No Known Allergies Allergy Verified 05/11/18 13:23 Physical Exam - Constitutional Appears: No Acute Distress - Head Exam Head Exam: ATRAUMATIC, NORMOCEPHALIC - Eye Exam Eye Exam: EOMI, PERRL - ENT Exam ENT Exam: Mucous Membranes Moist - Neck Exam Neck exam: Positive for: Full Rom - Respiratory Exam Respiratory Exam: Clear to Auscultation Bilateral, NORMAL BREATHING PATTERN - Cardiovascular Exam Cardiovascular Exam: REGULAR RHYTHM, +S1, +S2 - GI/Abdominal Exam GI & Abdominal Exam: Hypoactive Bowel Sounds, Soft, Tenderness Additional comments: redness and tenderness across abd wall, ? purulent drainage - Extremities Exam Extremities exam: Positive for: full ROM, normal inspection - Neurological Exam Neurological exam: Alert, CN II-XII Intact, Oriented x3 - Psychiatric Exam Psychiatric exam: Normal Affect, Normal Mood - Skin Skin Exam: Dry, Warm Results - Vital Signs Recent Vital Signs: Last Vital Signs Temp 98.1 F 05/29/18 19:41 Pulse 93 H 05/29/18 19:41 Resp 19 05/29/18 19:41 BP 132/76 05/29/18 19:41 Pulse Ox 95 05/29/18 20:41 - Labs Result Diagrams: 05/29/18 16:13 05/29/18 16:13 Labs: Laboratory Results - last 24 hr 05/29/18 05/29/18 05/29/18 16:13 16:13 16:13 WBC 7.6 RBC 3.26 L Hgb 10.7 L Hct 32.3 L MCV 99.0 D MCH 32.8 H MCHC 33.1 RDW 18.6 H Plt Count 248 MPV 8.2 Neut % (Auto) 52.7 Lymph % (Auto) 33.9 [place] % (Auto) 6.7 Eos % (Auto) 5.4 H Baso % (Auto) 1.3 Neut # (Auto) 4.0 Lymph # (Auto) 2.6 [place] # (Auto) 0.5 Eos # (Auto) 0.4 Baso # (Auto) 0.1 PT 13.4 H INR 1.2 APTT 33.8 Sodium 138 Potassium 3.9 Chloride 104 Carbon Dioxide 31 H Anion Gap 7 L BUN 8 Creatinine 0.4 L Est GFR ( Amer) > 60 Est GFR (Non-Af Amer) > 60 Random Glucose 166 H Calcium 8.7 Total Bilirubin 0.4 AST 40 H D ALT 32 Alkaline Phosphatase 140 H D Total Protein 6.8 Albumin 3.2 L Globulin 3.6 Albumin/Globulin Ratio 0.9 L - Imaging and Cardiology CT scan - abdomen Status: Image reviewed by me, Report reviewed by me (IMPRESSION:) Assessment & Plan (1) Abdominal wall cellulitis Assessment and Plan: 87 y/o female with multiple medical conditions and recurrent abd wall infection presenting with possible abd wall cellulitis. 1) Abd wall cellulitis, no dehisence noted -Start on Vanco 1 g q12h IV -Surgical consult -ID consult (Radha) 2) Ileus -NPO except medications and IVF overnight 3) DM2 -Accucheck and SSI -DM diet from AM 4) CHF stable 5) HTN stable, cont home medications 6) A afib stable, cont home medications; no anticoag 7) Hypothyroid stable, cont synthroid 8) Asthma stable, PRN duonebs 9) DVT PPx -- SCDs for now in case need for drainage of abscess Status: Acute (2) Atrial fibrillation Status: Chronic (3) Chronic congestive heart failure Status: Chronic (4) Diabetes mellitus, type II Status: Chronic Priority: High (5) Hypertension Status: Chronic Priority: Medium (6) Hypothyroidism Status: Chronic Priority: Medium (7) BAR (obstructive sleep apnea) Status: Inactive Priority: Medium
[2018-05-29] MEDS ORDERED: Vancomycin 1 g Inj ONE (21:28)
[2018-05-29] MEDS ORDERED: Lactated Ringer's 1,000 ML IV SCH (21:30)
[2018-05-29] MEDS ORDERED: Albuterol-Ipratrop 3 mg / 0.5 (3 ml) UD INH SCH (22:00)
[2018-05-30] MEDS: Levothyroxine 175 MCG TAB PO SCH (06:03)
[2018-05-30] MEDS: Insulin Lispro (humaLOG) 100 Units/ml Inj SC SCH ×4 (06:46→22:41)
[2018-05-30] MEDS: Albuterol-Ipratrop 3 mg / 0.5 (3 ml) UD INH SCH ×4 (07:29→19:27)
[2018-05-30 07:33] LABS: HEMOGLOBIN 10.7 g/dL (12.0-16.0); MEAN CELL VOLUME 98.1 fl (81.0-99.0); MEAN CORPUSCULAR HGB CONC 33.6 g/dL (33.0-37.0); RBC 3.25 Mil/uL (3.80-5.20); WHITE BLOOD COUNT 8.2 K/uL (4.8-10.8)
[2018-05-30] MEDS ORDERED: Patient's Own Med (Fluticasone/Vilanterol [Breo Ellipta 200-25 Mcg Inh] 1 PUFF) IH SCH (09:00)
[2018-05-30] MEDS ORDERED: OLOPATADINE HCL EACHEYE SCH (09:00)
[2018-05-30] MEDS: Pantoprazole 40 mg EC Tab PO SCH (09:06)
[2018-05-30] MEDS: Saccharomyces Boulardi 250 mg Cap PO SCH ×2 (09:07→17:10)
--- NOTE | 2018-05-30 13:22 | CT ---
Date of service: 05/29/2018 PROCEDURE: CT Abdomen and Pelvis with contrast HISTORY: r/o abd wall or pelvic abscess COMPARISON: 05/11/2018 TECHNIQUE: Contrast dose: 90 mL Visipaque 320 Radiation dose: Total exam DLP = 859.07 mGy-cm. This CT exam was performed using one or more of the following dose reduction techniques: Automated exposure control, adjustment of the mA and/or kV according to patient size, and/or use of iterative reconstruction technique. FINDINGS: LOWER THORAX: Small pericardial effusion. No infiltrate. LIVER: Unremarkable. No gross lesion or ductal dilatation. GALLBLADDER AND BILE DUCTS: Status post cholecystectomy PANCREAS: Unremarkable. No gross lesion or ductal dilatation. SPLEEN: Unremarkable. ADRENALS: Unremarkable. No mass. KIDNEYS AND URETERS: No other renal mass. No renal calculus or hydronephrosis. VASCULATURE: Unremarkable. No aortic aneurysm. BOWEL: Status post partial sigmoidectomy. Left lower quadrant colostomy again noted. There is extensive diverticulosis of the distal descending and remaining sigmoid colon. There is some slight mural thickening of the portion of the sigmoid colon in the abdominal wall, nonspecific. There is also mild infiltration/ injection of the adjacent soft tissues in the anterior abdominal wall. Again, this is unchanged and is of uncertain significance. This is unchanged from the prior examination. Please correlate with clinical examination. Cannot entirely exclude a diverticulitis of this residual portion of the sigmoid colon. No other abnormal bowel loops are appreciated. APPENDIX: Not identified. No secondary findings. PERITONEUM: No ascites. There are 2 collections in the anterior abdominal wall as on prior examination. The more inferior midline collection is within an anterior midline scar. A drainage catheter traverses this collection as on prior examination. This collection is essentially unchanged in size, measuring 0.9 x 2.5 x 3.6 cm. A 2nd, more cephalad midline collection is again noted, decreased in size from prior. It now measures approximately 2.3 x 2.3 x 5.3 cm. Previously, this measured approximately 1.8 x 4.2 x 8.3 cm. Fluid and gas are seen within this collection. Suspicious for abscess. LYMPH NODES: Unremarkable. No enlarged lymph nodes. BLADDER: Unremarkable. REPRODUCTIVE: Status post hysterectomy BONES: No acute fracture. OTHER FINDINGS: None. IMPRESSION: Two midline anterior abdominal wall collections, the more cephalad of which is decreased in size compared to prior examination of 05/11/2018. A more caudal collection in the anterior abdominal wall is essentially unchanged from prior examination. A drainage catheter again is seen traversing the more caudal abdominal wall collection. Status post sigmoidectomy. Mild mural thickening and injection of pericolonic tissues involving the portion of the left lower quadrant colostomy in the abdominal wall. The preliminary findings for this examination were reported by [facility] at 8:22 p.m. on 05/29/2018. There is discordance of this report with the preliminary findings. A single collection in the anterior abdominal wall was described in the preliminary report of this examination. Findings concerning the colostomy loop in the anterior abdominal wall were not described in the preliminary report of this examination.
--- NOTE | 2018-05-30 13:53 | CARD ---
APPROVED REPORT Date of service: 05/29/2018 EKG Measurement Heart [id number] <Conclusion> Atrial fibrillation Incomplete right bundle branch block Septal infarct, age undetermined ST & T wave abnormality, consider anterior ischemia Abnormal ECG
--- NOTE | 2018-05-30 15:32 | RAD ---
Date of service: 05/29/2018 HISTORY: infection COMPARISON: 04/10/2018 FINDINGS: LUNGS: No active pulmonary disease. PLEURA: No significant pleural effusion identified, no pneumothorax apparent. CARDIOVASCULAR: Mild cardiomegaly. No congestive change. OSSEOUS STRUCTURES: No significant abnormalities. VISUALIZED UPPER ABDOMEN: Normal. OTHER FINDINGS: None. IMPRESSION: No active disease.
--- NOTE | 2018-05-30 15:33 | CP.PCM.PN ---
Subjective - Date & Time of Evaluation Date of Evaluation: 05/30/18 Time of Evaluation: 15:30 - Subjective Subjective: DOING WELL HAVING GOOD OUTPUT CELLULITIC AREAS NOTED ON ABD WHICH SHE STATES STARTED A COUPLE DAYS AGO NO OTHER COMPLAINTS HD STABLE NAD NO CP / SOB / CALF TENDERNES Objective - Vital Signs/Intake and Output Vital Signs (last 24 hours): Temp Pulse Resp BP Pulse Ox 98.1 F 89 19 154/79 H 98 05/30/18 08:29 05/30/18 08:29 05/30/18 08:29 05/30/18 08:29 05/30/18 08:29 Vitals Reviewed GEN: WDWN, alert, cooperative HEENT: NCAT, PERRL, EOMI HEART: RRR, +S1S2, NO MRG LUNG: CTAB, NO WRR ABD: soft, NT, ND, No HSM, No masses - erythema, warmth, tenderness around surgical site EXT: normal pedal pulses, normal capillary refill NEURO: awake, alert, no focal deficits SKIN: warm, dry PSYCH: normal mood, normal affect Intake and Output: 05/30/18 05/30/18 06:59 18:59 Intake Total 750 Output Total 5 Balance 750 -5 - Medications Medications: Current Medications Acetaminophen (Tylenol 325mg Tab) 650 mg PO Q6 PRN PRN Reason: Pain, Mild (1-3) Acetaminophen (Tylenol 325mg Tab) 650 mg PO Q6 PRN PRN Reason: Fever >100.4 F Albuterol/Ipratropium (Duoneb 3 Mg/0.5 Mg (3 Ml) Ud) 3 ml INH RQID [facility] Last Admin: 05/30/18 11:24 Dose: 3 ml Atorvastatin Calcium (Lipitor) 40 mg PO QPM [facility] Diltiazem HCl (Cardizem) 30 mg PO QID [facility] Last Admin: 05/30/18 12:28 Dose: 30 mg Home Med (Fluticasone/Vilanterol [Breo Ellipta 200-25 Mcg Inh]) 1 puff IH DAILY [facility] Home Med (Olopatadine Hcl [Pazeo]) 1 drop EACHEYE DAILY [facility] Vancomycin HCl 1 gm/ Sodium (Chloride) 250 mls @ 250 mls/hr IVPB Q12H JOSE A PRN Reason: Protocol Last Admin: 05/30/18 09:05 Dose: 250 mls/hr Insulin Human Lispro (Humalog) 0 units SC ACHS [facility] PRN Reason: Protocol Last Admin: 05/30/18 12:13 Dose: Not Given Levothyroxine Sodium (Synthroid) 175 mcg PO DAILY@0630 [facility] Last Admin: 05/30/18 06:03 Dose: Not Given Losartan Potassium (Cozaar) 25 mg PO DAILY [facility] Last Admin: 05/30/18 09:06 Dose: 25 mg Ondansetron HCl (Zofran Inj) 4 mg IVP Q6 PRN PRN Reason: Nausea/Vomiting Pantoprazole Sodium (Protonix Ec Tab) 40 mg PO DAILY [facility] Last Admin: 05/30/18 09:06 Dose: 40 mg Saccharomyces Boulardii (Florastor) 250 mg PO BID [facility] Last Admin: 05/30/18 09:07 Dose: 250 mg - Labs Labs: 05/30/18 06:00 05/29/18 16:13 PT 13.4 Seconds (9.8-13.1) H 05/29/18 16:13 INR 1.2 (0.9-1.2) 05/29/18 16:13 APTT 33.8 Seconds (25.6-37.1) 05/29/18 16:13 Assessment and Plan - Assessment and Plan (Free Text) Plan: 87 y/o female with multiple chronic conditions as noted below who was admitted here to the hospital in 02/2018 for GIB. She had had a perforation of her colon as a complication of colonoscopy, and required surgery. Now she is s/p colostomy. She was here again in 03/2018 for abdominal abscess for which she required a drainage catheter to be placed by IR. She was noted by her home visit physician to have redness/warmth on abdominal wall, and was sent here with concern for cellulitis. No f/c/n/v/d. Abd wall cellulitis continue abx, await surgery recommendations -Start on Vanco 1 g q12h IV -Surgical consult Dr. Montaño, patient's surgeon -ID consult Dr. Garcia -diabetic diet, patient ileus resolved. DM2 -Accucheck and SSI -DM diet from AM CHF stable HTN stable, cont home medications Afib stable, cont home medications; no anticoag Hypothyroid stable, cont synthroid Asthma stable, PRN duonebs DVT PPx -- SCDs for now in case need for drainage of abscess
--- NOTE | 2018-05-30 16:04 | CP.PCM.CON ---
History of Present Illness - History of Present Illness History of Present Illness: General surgery consult note for Dr. Lee Donahue, PGY-2 Pt S & E at bedside at 0930 87F w/PSH sig for Exploratory laparotomy w/extensive adhensiolysis, LAR, Bebo's complicated by rectal stump leak w/abscess developement s/p IR drainage of abscess (03/27), subsequent abdominal wall abscess s/p I & D w/ Yoli placement (04/27) admitted for evaluation of abdominal wall findings of erythema. As per pt, she was d/c'd from TCU on 05/25/18 to home. Pt was doing well at home, noted that when her colostomy applicance was changed, it was cut in such a way as to hurt her skin when applied. Pt was seen/evaluated at home by visiting physician with concerns for abdominal wall wound evaluation. Pt reports she has been eating, making stool with good output to her ostomy bag, using her wheelchair at home, voiding without problems. Denies N & V, F & C, SOB , chest pain, other complaints. In ED- pt afebrile, no leukocytosis. CT ab/pelvis w/findings of stable loculated fluid collection in the supra-umbilical region of the ventral abdominal wall w/in the subcutaneous fat layer - currently measuring 4.0 x 2.2 cm. PMH: HTN, Afib, CHF, COPD, DM, diverticulitis, sleep apnea, hypothyroidism, hypercholesterolemia PSH: Exploratory laparotomy w/extensive adhensiolysis, LAR, Bebo's complicated by rectal stump leak w/abscess developement s/p IR drainage of abscess (03/27), subsequent abdominal wall abscess s/p I & D w/[place] placement (04/27), cholecystectomy, appendectomy, back surgery All: NKDA SH: Denies ETOH, tobacco or illicit drug use; recently discharged from TCU at [facility] to home on 05/25/18 Review of Systems - Review of Systems All systems: reviewed and no additional remarkable complaints except - Constitutional Constitutional: absent: Chills, Fever - EENT Eyes: absent: Change in Vision Ears: absent: Dizziness - Cardiovascular Cardiovascular: absent: Chest Pain - Gastrointestinal Gastrointestinal: absent: Abdominal Pain, Change in Bowel Habits, Constipation, Diarrhea, Nausea, Vomiting - Genitourinary Genitourinary: absent: Change in Urinary Stream - Musculoskeletal Musculoskeletal: Back Pain (Chronic). absent: Neck Pain, Numbness, Tingling - Integumentary Integumentary: absent: New Lesions - Neurological Neurological: absent: Dizziness Past Patient History - Infectious Disease Hx of Infectious Diseases: None - Tetanus Immunizations Tetanus Immunization: Unknown - Past Medical History & Family History Past Medical History?: Yes - Past Social History Smoking Status: Former Smoker - CARDIAC Hx Cardiac Disorders: Yes Hx Atrial Fibrillation: Yes Hx Congestive Heart Failure: Yes Hx Hypercholesterolemia: Yes Hx Hypertension: Yes - PULMONARY Hx Respiratory Disorders: Yes Hx Asthma: Yes Hx Chronic Obstructive Pulmonary Disease (COPD): Yes - NEUROLOGICAL Hx Neurological Disorder: No - HEENT Hx HEENT Problems: No - RENAL Hx Chronic Kidney Disease: No - ENDOCRINE/METABOLIC Hx Diabetes Mellitus Type 2: Yes Hx Hyperthyroidism: Yes Hx Hypothyroidism: Yes (thyroid dz) - HEMATOLOGICAL/ONCOLOGICAL Hx AIDS: No Hx Anemia: Yes Hx Human Immunodeficiency Virus (HIV): No - INTEGUMENTARY Hx Dermatological Problems: Yes - MUSCULOSKELETAL/RHEUMATOLOGICAL 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) Hx Falls: Yes - GASTROINTESTINAL Hx Diverticulitis: Yes - GENITOURINARY/GYNECOLOGICAL Hx Genitourinary Disorders: No - PSYCHIATRIC Hx Depression: Yes Hx Substance Use: No - SURGICAL HISTORY Hx Cholecystectomy: Yes Hx Coronary Artery Bypass Graft: No Other/Comment: bowel sx and back sx - ANESTHESIA Hx Anesthesia: Yes Hx Anesthesia Reactions: No Hx Malignant Hyperthermia: No Meds Allergies/Adverse Reactions: Allergies Allergy/AdvReac Type Severity Reaction Status Date / Time No Known Allergies Allergy Verified 05/11/18 13:23 - Medications Medications: Current Medications Acetaminophen (Tylenol 325mg Tab) 650 mg PO Q6 PRN PRN Reason: Pain, Mild (1-3) Acetaminophen (Tylenol 325mg Tab) 650 mg PO Q6 PRN PRN Reason: Fever >100.4 F Albuterol/Ipratropium (Duoneb 3 Mg/0.5 Mg (3 Ml) Ud) 3 ml INH RQID [facility] Last Admin: 05/30/18 11:24 Dose: 3 ml Atorvastatin Calcium (Lipitor) 40 mg PO QPM [facility] Diltiazem HCl (Cardizem) 30 mg PO QID [facility] Last Admin: 05/30/18 12:28 Dose: 30 mg Vancomycin HCl 1 gm/ Sodium (Chloride) 250 mls @ 250 mls/hr IVPB Q12H [facility] PRN Reason: Protocol Last Admin: 05/30/18 09:05 Dose: 250 mls/hr Insulin Human Lispro (Humalog) 0 units SC ACHS [facility] PRN Reason: Protocol Last Admin: 05/30/18 12:13 Dose: Not Given Levothyroxine Sodium (Synthroid) 175 mcg PO DAILY@0630 [facility] Last Admin: 05/30/18 06:03 Dose: Not Given Losartan Potassium (Cozaar) 25 mg PO DAILY [facility] Last Admin: 05/30/18 09:06 Dose: 25 mg Ondansetron HCl (Zofran Inj) 4 mg IVP Q6 PRN PRN Reason: Nausea/Vomiting Pantoprazole Sodium (Protonix Ec Tab) 40 mg PO DAILY [facility] Last Admin: 05/30/18 09:06 Dose: 40 mg Saccharomyces Boulardii (Florastor) 250 mg PO BID [facility] Last Admin: 05/30/18 09:07 Dose: 250 mg Fluticasone/Salmeterol (Advair Diskus 250/50) 1 puff IH Q12 [facility] Physical Exam - Constitutional Appears: Non-toxic, No Acute Distress - Head Exam Head Exam: absent: ATRAUMATIC, NORMAL INSPECTION Additional comments: Right eye with periorbital ecchymoses, slightly swollen, non tender - Eye Exam Eye Exam: EOMI. absent: Normal appearance (ecchymoses around Right eye, slightly swollen, non tender) - ENT Exam ENT Exam: Mucous Membranes Moist, Normal Exam - Neck Exam Neck exam: Positive for: Full Rom, Normal Inspection - Respiratory Exam Respiratory Exam: Clear to Auscultation Bilateral, NORMAL BREATHING PATTERN - Cardiovascular Exam Cardiovascular Exam: REGULAR RHYTHM, +S1, +S2 - GI/Abdominal Exam GI & Abdominal Exam: Soft. absent: Distended, Firm, Guarding, Hernia, Rebound, Rigid, Tenderness Additional comments: ostomy with moderate amount of soft brown stool Ostomy with skin irritation around ostomy appliance En[place] in place- wound dressing with scant purulent discharge Mid abdomen with slight erythema of approximately 8 x 2 cm, induration, non tender, no drainage - Extremities Exam Extremities exam: Positive for: normal inspection - Neurological Exam Neurological exam: Alert, CN II-XII Intact, Oriented x3 - Psychiatric Exam Psychiatric exam: Normal Affect, Normal Mood - Skin Skin Exam: Dry, Intact, Normal Color, Warm Additional comments: See abdominal exam for skin findings Results - Vital Signs Recent Vital Signs: Last Vital Signs Temp 97.3 F L 05/30/18 15:58 Pulse 76 05/30/18 15:58 Resp 18 05/30/18 15:58 BP 125/68 05/30/18 15:58 Pulse Ox 96 05/30/18 15:58 - Labs Result Diagrams: 05/30/18 06:00 05/29/18 16:13 Labs: Laboratory Results - last 24 hr 05/29/18 05/29/18 05/29/18 16:13 16:13 16:13 WBC 7.6 RBC 3.26 L Hgb 10.7 L Hct 32.3 L MCV 99.0 D MCH 32.8 H MCHC 33.1 RDW 18.6 H Plt Count 248 MPV 8.2 Neut % (Auto) 52.7 Lymph % (Auto) 33.9 Owen % (Auto) 6.7 Eos % (Auto) 5.4 H Baso % (Auto) 1.3 Neut # (Auto) 4.0 Lymph # (Auto) 2.6 Owen # (Auto) 0.5 Eos # (Auto) 0.4 Baso # (Auto) 0.1 PT 13.4 H INR 1.2 APTT 33.8 Sodium 138 Potassium 3.9 Chloride 104 Carbon Dioxide 31 H Anion Gap 7 L BUN 8 Creatinine 0.4 L Est GFR ( Amer) > 60 Est GFR (Non-Af Amer) > 60 POC Glucose (mg/dL) Random Glucose 166 H Calcium 8.7 Total Bilirubin 0.4 AST 40 H D ALT 32 Alkaline Phosphatase 140 H D Total Protein 6.8 Albumin 3.2 L Globulin 3.6 Albumin/Globulin Ratio 0.9 L 05/29/18 05/30/18 05/30/18 23:54 05:45 06:00 WBC 8.2 RBC 3.25 L Hgb 10.7 L Hct 31.9 L MCV 98.1 MCH 33.0 H MCHC 33.6 RDW 18.0 H Plt Count 271 MPV Neut % (Auto) Lymph % (Auto) Owen % (Auto) Eos % (Auto) Baso % (Auto) Neut # (Auto) Lymph # (Auto) Owen # (Auto) Eos # (Auto) Baso # (Auto) PT INR APTT Sodium Potassium Chloride Carbon Dioxide Anion Gap BUN Creatinine Est GFR ( Amer) Est GFR (Non-Af Amer) POC Glucose (mg/dL) 95 84 Random Glucose Calcium Total Bilirubin AST ALT Alkaline Phosphatase Total Protein Albumin Globulin Albumin/Globulin Ratio Assessment & Plan - Assessment and Plan (Free Text) Assessment: 87F w/PSH sig for Exploratory laparotomy w/extensive adhensiolysis, LAR, Bebo's complicated by rectal stump leak w/abscess developement s/p IR drainage of abscess (03/27), subsequent abdominal wall abscess s/p I & D w/ Yoli placement (04/27) admitted for evaluation of abdominal wall skin findings of erythema Plan: pt with output to ostomy- ok for diet Cont ABx Cont wound care per nursing for existing Yoli draining abscess ostomy care PT Further recs pending attending evaluation Will EMMA attending Rowan, PGY-2 - Date & Time Date: 05/30/18 Time: 09:45
[2018-05-30] MEDS: Fluticasone-Salmeterol 250-50mcg Diskus IH SCH (20:56)
[2018-05-31] MEDS: Levothyroxine 175 MCG TAB PO SCH (06:10)
[2018-05-31] MEDS: Insulin Lispro (humaLOG) 100 Units/ml Inj SC SCH ×5 (06:32→21:22)
--- NOTE | 2018-05-31 06:52 | CP.PCM.PN ---
Subjective - Date & Time of Evaluation Date of Evaluation: 05/31/18 Time of Evaluation: 06:50 - Subjective Subjective: General surgery progress note for Dr. Lee Donahue, PGY-2 Pt S & E at bedside 0630 Pt reports no problems overnight. Denies ab pain, F & C, N & C. Having output to ostomy. Tolerating diet. Objective - Vital Signs/Intake and Output Vital Signs (last 24 hours): Temp Pulse Resp BP Pulse Ox 98.6 F 90 20 144/77 96 05/31/18 06:07 05/31/18 06:07 05/31/18 06:07 05/31/18 06:07 05/31/18 06:07 Intake and Output: 05/30/18 05/31/18 18:59 06:59 Intake Total 550 Output Total 15 Balance 535 - Medications Medications: Current Medications Acetaminophen (Tylenol 325mg Tab) 650 mg PO Q6 PRN PRN Reason: Pain, Mild (1-3) Acetaminophen (Tylenol 325mg Tab) 650 mg PO Q6 PRN PRN Reason: Fever >100.4 F Albuterol/Ipratropium (Duoneb 3 Mg/0.5 Mg (3 Ml) Ud) 3 ml INH RQID [facility] Last Admin: 05/30/18 19:27 Dose: 3 ml Atorvastatin Calcium (Lipitor) 40 mg PO QPM [facility] Last Admin: 05/30/18 17:47 Dose: 40 mg Diltiazem HCl (Cardizem) 30 mg PO QID [facility] Last Admin: 05/30/18 21:01 Dose: 30 mg Vancomycin HCl 1 gm/ Sodium (Chloride) 250 mls @ 250 mls/hr IVPB Q12H [facility] PRN Reason: Protocol Last Admin: 05/30/18 20:54 Dose: 250 mls/hr Insulin Human Lispro (Humalog) 0 units SC ACHS [facility] PRN Reason: Protocol Last Admin: 05/31/18 06:32 Dose: Not Given Levothyroxine Sodium (Synthroid) 175 mcg PO DAILY@0630 [facility] Last Admin: 05/31/18 06:10 Dose: 175 mcg Losartan Potassium (Cozaar) 25 mg PO DAILY [facility] Last Admin: 05/30/18 09:06 Dose: 25 mg Ondansetron HCl (Zofran Inj) 4 mg IVP Q6 PRN PRN Reason: Nausea/Vomiting Pantoprazole Sodium (Protonix Ec Tab) 40 mg PO DAILY [facility] Last Admin: 05/30/18 09:06 Dose: 40 mg Saccharomyces Boulardii (Florastor) 250 mg PO BID [facility] Last Admin: 05/30/18 17:10 Dose: 250 mg Fluticasone/Salmeterol (Advair Diskus 250/50) 1 puff IH Q12 [facility] Last Admin: 05/30/18 20:56 Dose: 1 puff - Labs Labs: 05/30/18 06:00 05/29/18 16:13 PT 13.4 Seconds (9.8-13.1) H 05/29/18 16:13 INR 1.2 (0.9-1.2) 05/29/18 16:13 APTT 33.8 Seconds (25.6-37.1) 05/29/18 16:13 - Constitutional Appears: Non-toxic, No Acute Distress - Head Exam Head Exam: ATRAUMATIC, NORMAL INSPECTION, NORMOCEPHALIC - Eye Exam Eye Exam: EOMI, Normal appearance - ENT Exam ENT Exam: Mucous Membranes Moist, Normal Exam - Neck Exam Neck Exam: Full ROM, Normal Inspection - Respiratory Exam Respiratory Exam: NORMAL BREATHING PATTERN - Cardiovascular Exam Cardiovascular Exam: REGULAR RHYTHM, +S1, +S2 - GI/Abdominal Exam GI & Abdominal Exam: Soft. absent: Distended, Firm, Guarding, Rigid, Tenderness Additional comments: ostomy recently changed- no stool output; stoma pink, non bloody Midline incision distal aspect with Drum[place] in place, scant purulent drainage from site Mild erythema of mid abdomen surrounding incision line, induration, no fluctuance - Extremities Exam Extremities Exam: Normal Inspection - Neurological Exam Neurological Exam: Alert, Awake, CN II-XII Intact, Oriented x3 - Psychiatric Exam Psychiatric exam: Normal Affect, Normal Mood - Skin Skin Exam: Dry, Normal Color, Warm Additional comments: See abdomen for skin findings Assessment and Plan - Assessment and Plan (Free Text) Assessment: 87F w/PSH sig for Exploratory laparotomy w/extensive adhensiolysis, LAR, Bebo's complicated by rectal stump leak w/abscess developement s/p IR drainage of abscess (03/27), subsequent abdominal wall abscess s/p I & D w/ [place] placement (04/27) admitted for evaluation of abdominal wall skin findings of erythema- stable Plan: Cont Abx Wound care per nursing Ostomy care PT/OT OOBTC Further recs pending attending evaluation Will DW attending Rowan, PGY-2
[2018-05-31] MEDS: Albuterol-Ipratrop 3 mg / 0.5 (3 ml) UD INH SCH ×4 (07:26→19:46)
[2018-05-31] MEDS: Fluticasone-Salmeterol 250-50mcg Diskus IH SCH ×2 (09:19→21:21)
[2018-05-31] MEDS: Saccharomyces Boulardi 250 mg Cap PO SCH ×2 (09:21→17:07)
[2018-05-31] MEDS: Pantoprazole 40 mg EC Tab PO SCH (09:21)
--- NOTE | 2018-05-31 11:50 | CP.PCM.PN ---
Subjective - Date & Time of Evaluation Date of Evaluation: 05/31/18 Time of Evaluation: 11:48 - Subjective Subjective: pt doing well clinically tolerating abx well no complaints anxious to go home no cp no sob no calf tenderness Objective - Vital Signs/Intake and Output Vital Signs (last 24 hours): Temp Pulse Resp BP Pulse Ox 98.2 F 92 H 20 157/94 H 98 05/31/18 08:41 05/31/18 09:21 05/31/18 08:41 05/31/18 09:21 05/31/18 08:41 Vitals Reviewed GEN: WDWN, alert, cooperative HEENT: NCAT, PERRL, EOMI HEART: RRR, +S1S2, NO MRG LUNG: CTAB, NO WRR ABD: soft, NT, ND, No HSM, No masses - erythema, warmth, tenderness around surgical site EXT: normal pedal pulses, normal capillary refill NEURO: awake, alert, no focal deficits SKIN: warm, dry PSYCH: normal mood, normal affect - Medications Medications: Current Medications Acetaminophen (Tylenol 325mg Tab) 650 mg PO Q6 PRN PRN Reason: Pain, Mild (1-3) Acetaminophen (Tylenol 325mg Tab) 650 mg PO Q6 PRN PRN Reason: Fever >100.4 F Albuterol/Ipratropium (Duoneb 3 Mg/0.5 Mg (3 Ml) Ud) 3 ml INH RQID [facility] Last Admin: 05/31/18 11:14 Dose: 3 ml Atorvastatin Calcium (Lipitor) 40 mg PO QPM [facility] Last Admin: 05/30/18 17:47 Dose: 40 mg Diltiazem HCl (Cardizem) 30 mg PO QID [facility] Last Admin: 05/31/18 09:20 Dose: 30 mg Vancomycin HCl 1 gm/ Sodium (Chloride) 250 mls @ 250 mls/hr IVPB Q12H [facility] PRN Reason: Protocol Last Admin: 05/31/18 09:21 Dose: 250 mls/hr Insulin Human Lispro (Humalog) 0 units SC ACHS [facility] PRN Reason: Protocol Last Admin: 05/31/18 06:32 Dose: Not Given Levothyroxine Sodium (Synthroid) 175 mcg PO DAILY@0630 [facility] Last Admin: 05/31/18 06:10 Dose: 175 mcg Losartan Potassium (Cozaar) 25 mg PO DAILY [facility] Last Admin: 05/31/18 09:21 Dose: 25 mg Ondansetron HCl (Zofran Inj) 4 mg IVP Q6 PRN PRN Reason: Nausea/Vomiting Pantoprazole Sodium (Protonix Ec Tab) 40 mg PO DAILY [facility] Last Admin: 05/31/18 09:21 Dose: 40 mg Saccharomyces Boulardii (Florastor) 250 mg PO BID [facility] Last Admin: 05/31/18 09:21 Dose: 250 mg Fluticasone/Salmeterol (Advair Diskus 250/50) 1 puff IH Q12 [facility] Last Admin: 05/31/18 09:19 Dose: 1 puff Silver Sulfadiazine (Silvadene 1% 20 Gm) 0 ea TOP DAILY [facility] - Labs Labs: 05/30/18 06:00 05/29/18 16:13 PT 13.4 Seconds (9.8-13.1) H 05/29/18 16:13 INR 1.2 (0.9-1.2) 05/29/18 16:13 APTT 33.8 Seconds (25.6-37.1) 05/29/18 16:13 Assessment and Plan - Assessment and Plan (Free Text) Plan: 87 y/o female with multiple chronic conditions as noted below who was admitted here to the hospital in 02/2018 for GIB. She had had a perforation of her colon as a complication of colonoscopy, and required surgery. Now she is s/p colostomy. She was here again in 03/2018 for abdominal abscess for which she required a drainage catheter to be placed by IR. She was noted by her home visit physician to have redness/warmth on abdominal wall, and was sent here with concern for cellulitis. No f/c/n/v/d. Abd wall cellulitis continue abx, await surgery and ID recommendations -Start on Vanco 1 g q12h IV -Surgical consult Dr. Montaño, patient's surgeon -ID consult Dr. Garcia -diabetic diet, patient ileus resolved. DM2 -Accucheck and SSI -DM diet from AM CHF stable HTN stable, cont home medications Afib stable, cont home medications; no anticoag Hypothyroid stable, cont synthroid Asthma stable, PRN duonebs DVT PPx -- SCDs for now in case need for drainage of abscess
--- NOTE | 2018-05-31 12:44 | CP.PCM.CON ---
History of Present Illness - History of Present Illness History of Present Illness: 87 year old female with Hx of UGI bleed back in February 2018. Had EGD and then Taken for colonoscopy 02/[address] Calvert that showed diverticulosis, no active bleed. Post colonoscopy developed severe intractable abdominal pain secondary to colon perforation . Taken to OR and underwent exploratory laparatomy with sigmoid resection and sigmoid colostomy. Hospital course complicated by abscess requiring drainage and rectal stump leak with MDRO's Grew ESBL E Coli from wound requiring long course IV antibiotics As per pt, she was d/c'd from TCU on 05/25/18 to home. Pt was seen/evaluated at home by visiting physician with concerns for abdominal wall wound evaluation. Pt reports she has been eating, making stool with good output to her ostomy bag , using her wheelchair at home, voiding without problems. Denies N & V, F & C, SOB, chest pain, other complaints. PMH: HTN, Afib, CHF, COPD, DM, diverticulitis, sleep apnea, hypothyroidism, hypercholesterolemia PSH: Exploratory laparotomy w/extensive adhensiolysis, LAR, Bebo's complicated by rectal stump leak w/abscess developement s/p IR drainage of abscess (03/27), subsequent abdominal wall abscess s/p I & D w/[place] placement (04/27), cholecystectomy, appendectomy, back surgery All: NKDA SH: Denies ETOH, tobacco or illicit drug use; recently discharged from TCU at [facility] to home on 05/25/18 Review of Systems Review of Systems - Review of Systems Systems not reviewed;Unavailable: Altered Mental Status All systems: reviewed and no additional remarkable complaints except - Constitutional Constitutional: As Per HPI - EENT Eyes: absent: As Per HPI, Blind Spots, Blurred Vision, Change in Vision, Decreased Night Vision, Diplopia, Discharge, Dry Eye, Exophthalmos, Floaters, Irritation, Itchy Eyes, Loss of Peripheral Vision, Pain, Photophobia, Requires Corrective Lenses, Sees Flashes, Spots in Vision, Tunnel Vision, Other Visual Disturbances, Loss of Vision, Other Ears: absent: As Per HPI, Decreased Hearing, Ear Discharge, Ear Pain, Tinnitus, Abnormal Hearing, Disequilibrium, Dizziness, Other Nose/Mouth/Throat: absent: As Per HPI, Epistaxis, Nasal Congestion, Nasal Discharge, Nasal Obstruction, Nasal Trauma, Nose Pain, Post Nasal Drip, Sinus Pain, Sinus Pressure, Bleeding Gums, Change in Voice, Dental Pain, Dry Mouth, Dysphagia, Halitosis, Hoarsness, Lip Swelling, Mouth Lesions, Mouth Pain, Odynophagia, Sore Throat, Throat Swelling, Tongue Swelling, Facial Pain, Neck Pain, Neck Mass, Other - Breasts Breasts: absent: As Per HPI, Change in Shape, Mass, Pain, Nipple Discharge, Nipple Inversion, Skin Changes, Swelling, Other - Cardiovascular Cardiovascular: As Per HPI - Respiratory Respiratory: As Per HPI, Cough - Gastrointestinal Gastrointestinal: As Per HPI - Genitourinary Genitourinary: absent: As Per HPI, Change in Urinary Stream, Difficulty Urinating, Dysuria, Flank Pain, Hematuria, Pyuria, Nocturia, Urinary Incontinence, Urinary Frequency, Urinary Hesitance, Urinary Urgency, Voiding Freq/Small Amts, Freq UTI, Hx Renal/Bladder Calculi, Hx /Renal Surgery, Bladder Distension, Other - Reproductive: Female Reproductive:Female: absent: As Per HPI, Amenorrhea, Amenorrhea/ Control, Currently Menstual, Cycle <21 Days, Cycle >35 Days, Cycle Variable, Menses 1-7 Days, Menses >/= 8 Days, Menses Variable, Cycle > 4 Weeks Between, No Menses for 6 Months, Heavy Menses, Light Menses, Normal Menses, Spotting Between Cycles , S/P Hysterectomy, Menopausal, Post Menopausal, Premenarche, Abnormal Vaginal Bleeding, Dysmenorrhea, Dyspareunia, Genital Lesions, Genital Pruritis, Pelvic Pain, Prolapse Symptoms, Sexual Dysfunction, Vaginal Discharge, Vaginal Dryness , Vaginal Odor, Vaginal Pruritis, Other - Menstruation Menstruation: absent: As Per HPI, Amenorrhea, Amenorrhea/ Control, Currently Menstual, Cycle <21 Days, Cycle >35 Days, Cycle Variable, Menses 1-7 Days, Menses >/= 8 Days, Menses Variable, Cycle > 4 Weeks Between, No Menses for 6 Months, Heavy Menses, Light Menses, Normal Menses, Spotting Between Cycles , S/P Hysterectomy, Menopausal, Post Menopausal, Premenarche, Abnormal Vaginal Bleeding, Dysmenorrhea, Other - Musculoskeletal Musculoskeletal: absent: As Per HPI, Abnormal Gait, Arthralgias, Atrophy, Back Pain, Deformity, Joint Swelling, Limited Range of Motion, Loss of Height, Muscle Cramps, Muscle Weakness, Myalgias, Neck Pain, Numbness, Radiating Pain into Limb, Stiffness, Tingling, Other - Integumentary Integumentary: absent: As Per HPI, Acne, Alopecia, Bleeding Lesions, Change in Hair, Change in Nails, Change in Pigmentation, Changing Lesions, Dry Skin, Erythema, Furuncle, Hirsutism, Lesions, New Lesions, Non-Healing Lesions, Photosensitivity, Pruritus, Rash, Skin Pain, Skin Ulcer, Sores, Striae, Swelling , Unusual Bruising, Wounds, Jaundice, Other - Neurological Neurological: absent: As Per HPI, Abnormal Gait, Abnormal Hearing, Abnormal Movements, Abnormal Speech, Behavioral Changes, Burning Sensations, Confusion, Convulsions, Disequilibrium, Dizziness, Numbness, Focal Weakness, Frequent Falls , Headaches, Lack of Coordination, Loss of Vision, Memory Loss, Paresthesias, Radicular Pain, Restless Legs, Sensory Deficit, Syncope, Tingling, Tremor, Vertigo, Weakness, Other Visual Disturbances, Other - Psychiatric Psychiatric: absent: As Per HPI, Abnormal Sleep Pattern, Anhedonia, Anxiety, Auditory Hallucinations, Behavioral Changes, Change in Appetite, Change in Libido, Confusion, Depression, Difficulty Concentrating, Hallucinations, Homicidal Ideation, Hopelessness, Irritability, Memory Loss, Mood Swings, Panic Attacks, Paranoia, Suicidal Ideation, Visual Hallucinations, Tactile Hallucinations, Other - Endocrine Endocrine: absent: As Per HPI, Change in Body Appearance, Change in Libido, Cold Intolorance, Deepening of Voice, Excessive Sweating, Fatigue, Flushing, Heat Intolorance, Increase in Ring/Shoe/Hat Size, Palpitations, Polydipsia, Polyphagia, Polyuria, Other - Hematologic/Lymphatic Hematologic: absent: As Per HPI, Easy Bleeding, Easy Bruising, Lymphadenopathy, Other Past Patient History - Infectious Disease Hx of Infectious Diseases: None - Tetanus Immunizations Tetanus Immunization: Unknown - Past Medical History & Family History Past Medical History?: Yes - Past Social History Smoking Status: Former Smoker - CARDIAC Hx Cardiac Disorders: Yes Hx Atrial Fibrillation: Yes Hx Congestive Heart Failure: Yes Hx Hypercholesterolemia: Yes Hx Hypertension: Yes - PULMONARY Hx Respiratory Disorders: Yes Hx Asthma: Yes Hx Chronic Obstructive Pulmonary Disease (COPD): Yes - NEUROLOGICAL Hx Neurological Disorder: No - HEENT Hx HEENT Problems: No - RENAL Hx Chronic Kidney Disease: No - ENDOCRINE/METABOLIC Hx Diabetes Mellitus Type 2: Yes Hx Hyperthyroidism: Yes Hx Hypothyroidism: Yes (thyroid dz) - HEMATOLOGICAL/ONCOLOGICAL Hx AIDS: No Hx Anemia: Yes Hx Human Immunodeficiency Virus (HIV): No - INTEGUMENTARY Hx Dermatological Problems: Yes - MUSCULOSKELETAL/RHEUMATOLOGICAL 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) Hx Falls: Yes - GASTROINTESTINAL Hx Diverticulitis: Yes - GENITOURINARY/GYNECOLOGICAL Hx Genitourinary Disorders: No - PSYCHIATRIC Hx Depression: Yes Hx Substance Use: No - SURGICAL HISTORY Hx Cholecystectomy: Yes Hx Coronary Artery Bypass Graft: No Other/Comment: bowel sx and back sx - ANESTHESIA Hx Anesthesia: Yes Hx Anesthesia Reactions: No Hx Malignant Hyperthermia: No Meds Allergies/Adverse Reactions: Allergies Allergy/AdvReac Type Severity Reaction Status Date / Time No Known Allergies Allergy Verified 05/11/18 13:23 - Medications Medications: Current Medications Acetaminophen (Tylenol 325mg Tab) 650 mg PO Q6 PRN PRN Reason: Pain, Mild (1-3) Acetaminophen (Tylenol 325mg Tab) 650 mg PO Q6 PRN PRN Reason: Fever >100.4 F Albuterol/Ipratropium (Duoneb 3 Mg/0.5 Mg (3 Ml) Ud) 3 ml INH RQID [facility] Last Admin: 05/31/18 11:14 Dose: 3 ml Atorvastatin Calcium (Lipitor) 40 mg PO QPM [facility] Last Admin: 05/30/18 17:47 Dose: 40 mg Diltiazem HCl (Cardizem) 30 mg PO QID [facility] Last Admin: 05/31/18 09:20 Dose: 30 mg Vancomycin HCl 1 gm/ Sodium (Chloride) 250 mls @ 250 mls/hr IVPB Q12H [facility] PRN Reason: Protocol Last Admin: 05/31/18 09:21 Dose: 250 mls/hr Insulin Human Lispro (Humalog) 0 units SC ACHS [facility] PRN Reason: Protocol Last Admin: 05/31/18 06:32 Dose: Not Given Levothyroxine Sodium (Synthroid) 175 mcg PO DAILY@0630 [facility] Last Admin: 05/31/18 06:10 Dose: 175 mcg Losartan Potassium (Cozaar) 25 mg PO DAILY [facility] Last Admin: 05/31/18 09:21 Dose: 25 mg Ondansetron HCl (Zofran Inj) 4 mg IVP Q6 PRN PRN Reason: Nausea/Vomiting Pantoprazole Sodium (Protonix Ec Tab) 40 mg PO DAILY [facility] Last Admin: 05/31/18 09:21 Dose: 40 mg Saccharomyces Boulardii (Florastor) 250 mg PO BID [facility] Last Admin: 05/31/18 09:21 Dose: 250 mg Fluticasone/Salmeterol (Advair Diskus 250/50) 1 puff IH Q12 [facility] Last Admin: 05/31/18 09:19 Dose: 1 puff Silver Sulfadiazine (Silvadene 1% 20 Gm) 0 ea TOP DAILY [facility] Physical Exam - Constitutional Appears: Non-toxic, No Acute Distress, Chronically Ill - Head Exam Head Exam: NORMOCEPHALIC - Eye Exam Eye Exam: PERRL. absent: Scleral icterus - ENT Exam ENT Exam: Mucous Membranes Dry, Normal External Ear Exam - Neck Exam Neck exam: Negative for: Lymphadenopathy - Respiratory Exam Respiratory Exam: Decreased Breath Sounds, Clear to Auscultation Bilateral - Cardiovascular Exam Cardiovascular Exam: REGULAR RHYTHM, +S1, +S2 - GI/Abdominal Exam GI & Abdominal Exam: Diminished Bowel Sounds, Distended, Soft. absent: Guarding , Rebound, Rigid, Tenderness Additional comments: LLQ colostomy + mild abd wall redness no pus drains in place - Rectal Exam Rectal Exam: Deferred - Exam Exam: NORMAL INSPECTION - Extremities Exam Extremities exam: Positive for: pedal pulses present. Negative for: calf tenderness, pedal edema, tenderness - Back Exam Back exam: absent: CVA tenderness (L), CVA tenderness (R), paraspinal tenderness - Neurological Exam Neurological exam: Alert, CN II-XII Intact, Oriented x3, Reflexes Normal - Psychiatric Exam Psychiatric exam: Normal Mood - Skin Skin Exam: Dry Results - Vital Signs Recent Vital Signs: Last Vital Signs Temp 98.2 F 05/31/18 08:41 Pulse 92 H 05/31/18 09:21 Resp 20 05/31/18 08:41 BP 157/94 H 05/31/18 09:21 Pulse Ox 98 05/31/18 08:41 - Labs Result Diagrams: 05/30/18 06:00 05/29/18 16:13 Assessment & Plan (1) Abdominal wall cellulitis Status: Acute (2) Abdominal wall abscess at site of surgical wound Status: Acute Priority: High - Assessment and Plan (Free Text) Assessment: improving abd wall cellulitis stable abd wall collections cont wound care, nutritional support and antibiotics await cultures
[2018-05-31] MEDS: Silver Sulfadiazine 1% Cream (20 gm) TOP SCH (13:32)
[2018-06-01] MEDS: Levothyroxine 175 MCG TAB PO SCH (06:28)
--- NOTE | 2018-06-01 07:30 | CP.PCM.PN ---
Subjective - Date & Time of Evaluation Date of Evaluation: 06/01/18 Time of Evaluation: 07:27 - Subjective Subjective: General surgery progress note for Dr. Lee Donahue, PGY-2 Pt S & E at bedside 0715 Pt reports abdominal pain yesterday due to tape being too tight on dressing. Denies ab pain today. Having output to ostomy. Voiding. Ambulating with assistance. Denies N & V, F & C, other complaints. Objective - Vital Signs/Intake and Output Vital Signs (last 24 hours): Temp Pulse Resp BP Pulse Ox 98.1 F 75 19 135/73 93 L 06/01/18 06:59 06/01/18 06:59 06/01/18 06:59 06/01/18 06:59 06/01/18 06:59 - Medications Medications: Current Medications Acetaminophen (Tylenol 325mg Tab) 650 mg PO Q6 PRN PRN Reason: Pain, Mild (1-3) Last Admin: 06/01/18 01:03 Dose: 650 mg Acetaminophen (Tylenol 325mg Tab) 650 mg PO Q6 PRN PRN Reason: Fever >100.4 F Albuterol/Ipratropium (Duoneb 3 Mg/0.5 Mg (3 Ml) Ud) 3 ml INH RQID [facility] Last Admin: 05/31/18 19:46 Dose: 3 ml Atorvastatin Calcium (Lipitor) 40 mg PO QPM [facility] Last Admin: 05/31/18 21:22 Dose: 40 mg Diltiazem HCl (Cardizem) 30 mg PO QID [facility] Last Admin: 05/31/18 21:21 Dose: 30 mg Vancomycin HCl 1 gm/ Sodium (Chloride) 250 mls @ 250 mls/hr IVPB Q12H [facility] PRN Reason: Protocol Last Admin: 05/31/18 21:20 Dose: 250 mls/hr Insulin Human Lispro (Humalog) 0 units SC ACHS [facility] PRN Reason: Protocol Last Admin: 05/31/18 21:22 Dose: Not Given Levothyroxine Sodium (Synthroid) 175 mcg PO DAILY@0630 [facility] Last Admin: 06/01/18 06:28 Dose: 175 mcg Losartan Potassium (Cozaar) 25 mg PO DAILY [facility] Last Admin: 05/31/18 09:21 Dose: 25 mg Ondansetron HCl (Zofran Inj) 4 mg IVP Q6 PRN PRN Reason: Nausea/Vomiting Pantoprazole Sodium (Protonix Ec Tab) 40 mg PO DAILY [facility] Last Admin: 05/31/18 09:21 Dose: 40 mg Saccharomyces Boulardii (Florastor) 250 mg PO BID [facility] Last Admin: 05/31/18 17:07 Dose: 250 mg Fluticasone/Salmeterol (Advair Diskus 250/50) 1 puff IH Q12 [facility] Last Admin: 05/31/18 21:21 Dose: 1 puff Silver Sulfadiazine (Silvadene 1% 20 Gm) 0 ea TOP DAILY [facility] Last Admin: 05/31/18 13:32 Dose: 1 u - Labs Labs: 05/30/18 06:00 05/29/18 16:13 PT 13.4 Seconds (9.8-13.1) H 05/29/18 16:13 INR 1.2 (0.9-1.2) 05/29/18 16:13 APTT 33.8 Seconds (25.6-37.1) 05/29/18 16:13 - Constitutional Appears: Non-toxic, No Acute Distress - Head Exam Head Exam: NORMOCEPHALIC. absent: ATRAUMATIC, NORMAL INSPECTION Additional comments: Resolving ecchymoses of right periorbital region, slightly swollen, non tender - Eye Exam Eye Exam: EOMI. absent: Normal appearance (Periorbital ecchymoses) - ENT Exam ENT Exam: Mucous Membranes Moist - Neck Exam Neck Exam: Full ROM, Normal Inspection - Respiratory Exam Respiratory Exam: NORMAL BREATHING PATTERN - Cardiovascular Exam Cardiovascular Exam: REGULAR RHYTHM - GI/Abdominal Exam GI & Abdominal Exam: Soft. absent: Distended (obese), Guarding, Rigid, Tenderness Additional comments: Ostomy pink, no output currently, bag with air Midline [place] in place- scant purulent drainage Mid-abdomina erythema- improved, now with blister on healing incision - Extremities Exam Extremities Exam: Full ROM, Normal Inspection - Neurological Exam Neurological Exam: Alert, Awake, CN II-XII Intact, Oriented x3 - Psychiatric Exam Psychiatric exam: Normal Affect, Normal Mood - Skin Skin Exam: Dry, Intact, Normal Color, Warm Additional comments: see ab exam for skin findings Assessment and Plan - Assessment and Plan (Free Text) Assessment: 87F w/PSH sig for Exploratory laparotomy w/extensive adhensiolysis, LAR, Bebo's complicated by rectal stump leak w/abscess developement s/p IR drainage of abscess (03/27), subsequent abdominal wall abscess s/p I & D w/ [place] placement (04/27) admitted for evaluation of abdominal wall skin findings of erythema- improving Plan: Cont Abx Wound care PRN Dressing changed today Will I & D blister, then pack as per attending Consent in chart Ostomy care- monitor output PT/OT OOBTC Ambulate with assistance Further mgmt as per primary DW attending Rowan, PGY-2 Incision and Drainage - Time Time Performed: 11:05 - Time Out Time Out: Side verified, Site verified, Patient ID confirmed, Sterile procedures obs. - Procedure Procedure-Incision & Drainage: I & D of abdominal wall blister - Consent obtained Consent obtained: Written - Performed by Performed by: Mid-level Provider - Indications Indications: Other (Abdominal wall blister) - Contraindications Contraindications: None - Location Location: Skin abscess (blister) - Dimensions Dimensions Length cm: 2cm Dimensions width cm: 2cm - Anesthetic Technique Anesthetic Technique: Local - Anesthetic Anesthetic: Lidocaine 1% - Procedure Procedure: Usual prep and drape, cm incision (1), Overlying area fluctuance, # scalpel used (11), Explored for loculations, Packed with sterile gauze - Drained Drained: ml serosanguinous fluid (1) - Post-procedure Post procedure: Tetanus NA - Complications Complications: None - Patient tolerated procedure Patient tolerated procedure: Well
[2018-06-01] MEDS: Albuterol-Ipratrop 3 mg / 0.5 (3 ml) UD INH SCH ×4 (07:35→19:03)
[2018-06-01] MEDS: Fluticasone-Salmeterol 250-50mcg Diskus IH SCH ×2 (08:41→21:11)
[2018-06-01] MEDS: Insulin Lispro (humaLOG) 100 Units/ml Inj SC SCH ×4 (08:43→22:00)
[2018-06-01] MEDS: Pantoprazole 40 mg EC Tab PO SCH (08:43)
[2018-06-01] MEDS: Saccharomyces Boulardi 250 mg Cap PO SCH ×2 (08:43→17:12)
[2018-06-01] MEDS: Silver Sulfadiazine 1% Cream (20 gm) TOP SCH (08:44)
[2018-06-01] MEDS ORDERED: Lidocaine 1% Inj (20ml) IJ ONE (10:51)
--- NOTE | 2018-06-01 11:19 | CP.PCM.PN ---
Subjective - Date & Time of Evaluation Date of Evaluation: 06/01/18 Time of Evaluation: 08:00 - Subjective Subjective: afeb alert vss wound ok less cellulitis Objective - Vital Signs/Intake and Output Vital Signs (last 24 hours): Temp Pulse Resp BP Pulse Ox 97.5 F L 73 20 155/75 H 96 06/01/18 08:29 06/01/18 08:42 06/01/18 08:41 06/01/18 08:42 06/01/18 08:41 - Medications Medications: Current Medications Acetaminophen (Tylenol 325mg Tab) 650 mg PO Q6 PRN PRN Reason: Pain, Mild (1-3) Last Admin: 06/01/18 01:03 Dose: 650 mg Acetaminophen (Tylenol 325mg Tab) 650 mg PO Q6 PRN PRN Reason: Fever >100.4 F Albuterol/Ipratropium (Duoneb 3 Mg/0.5 Mg (3 Ml) Ud) 3 ml INH RQID [facility] Last Admin: 06/01/18 07:35 Dose: 3 ml Atorvastatin Calcium (Lipitor) 40 mg PO QPM [facility] Last Admin: 05/31/18 21:22 Dose: 40 mg Diltiazem HCl (Cardizem) 30 mg PO QID [facility] Last Admin: 06/01/18 08:41 Dose: 30 mg Vancomycin HCl 1 gm/ Sodium (Chloride) 250 mls @ 250 mls/hr IVPB Q12H [facility] PRN Reason: Protocol Last Admin: 06/01/18 08:47 Dose: 250 mls/hr Insulin Human Lispro (Humalog) 0 units SC ACHS [facility] PRN Reason: Protocol Last Admin: 06/01/18 08:43 Dose: Not Given Levothyroxine Sodium (Synthroid) 175 mcg PO DAILY@0630 [facility] Last Admin: 06/01/18 06:28 Dose: 175 mcg Lidocaine HCl (Lidocaine 1% (20ml)) 10 ml IJ ONCE ONE Stop: 06/01/18 10:52 Losartan Potassium (Cozaar) 25 mg PO DAILY [facility] Last Admin: 06/01/18 08:42 Dose: 25 mg Ondansetron HCl (Zofran Inj) 4 mg IVP Q6 PRN PRN Reason: Nausea/Vomiting Pantoprazole Sodium (Protonix Ec Tab) 40 mg PO DAILY [facility] Last Admin: 06/01/18 08:43 Dose: 40 mg Saccharomyces Boulardii (Florastor) 250 mg PO BID [facility] Last Admin: 06/01/18 08:43 Dose: 250 mg Fluticasone/Salmeterol (Advair Diskus 250/50) 1 puff IH Q12 [facility] Last Admin: 06/01/18 08:41 Dose: 1 puff Silver Sulfadiazine (Silvadene 1% 20 Gm) 0 ea TOP DAILY [facility] Last Admin: 06/01/18 08:44 Dose: 1 u - Labs Labs: 05/30/18 06:00 05/29/18 16:13 PT 13.4 Seconds (9.8-13.1) H 05/29/18 16:13 INR 1.2 (0.9-1.2) 05/29/18 16:13 APTT 33.8 Seconds (25.6-37.1) 05/29/18 16:13 - Constitutional Appears: Non-toxic, Chronically Ill - Head Exam Head Exam: NORMOCEPHALIC - Eye Exam Eye Exam: absent: Scleral icterus - ENT Exam ENT Exam: Mucous Membranes Dry - Neck Exam Neck Exam: absent: Lymphadenopathy - Respiratory Exam Respiratory Exam: Decreased Breath Sounds - Cardiovascular Exam Cardiovascular Exam: REGULAR RHYTHM - GI/Abdominal Exam GI & Abdominal Exam: Distended, Soft - Rectal Exam Rectal Exam: Deferred - Exam Exam: NORMAL INSPECTION Assessment and Plan (1) Abdominal wall cellulitis Status: Acute (2) Abdominal wall abscess at site of surgical wound Status: Acute - Assessment and Plan (Free Text) Assessment: cont wound care / antibiotics
--- NOTE | 2018-06-01 14:57 | CP.PCM.PN ---
Subjective - Date & Time of Evaluation Date of Evaluation: 06/01/18 Time of Evaluation: 10:00 - Subjective Subjective: Patient was seen and examined at bedside. She states that she feels well other than having some pain due to tightness of her abdominal dressing. She had I&D of superficial abscess that developed on abdominal wound today. Otherwise, patient states that she feels well. Denies any fevers/c/n/v/d. Objective - Vital Signs/Intake and Output Vital Signs (last 24 hours): Temp Pulse Resp BP Pulse Ox 97.5 F L 86 18 154/81 H 97 06/01/18 08:29 06/01/18 12:44 06/01/18 12:44 06/01/18 12:44 06/01/18 12:44 - Medications Medications: Current Medications Acetaminophen (Tylenol 325mg Tab) 650 mg PO Q6 PRN PRN Reason: Pain, Mild (1-3) Last Admin: 06/01/18 01:03 Dose: 650 mg Acetaminophen (Tylenol 325mg Tab) 650 mg PO Q6 PRN PRN Reason: Fever >100.4 F Albuterol/Ipratropium (Duoneb 3 Mg/0.5 Mg (3 Ml) Ud) 3 ml INH RQID [facility] Last Admin: 06/01/18 11:23 Dose: 3 ml Atorvastatin Calcium (Lipitor) 40 mg PO QPM [facility] Last Admin: 05/31/18 21:22 Dose: 40 mg Diltiazem HCl (Cardizem) 30 mg PO QID [facility] Last Admin: 06/01/18 12:44 Dose: 30 mg Vancomycin HCl 1 gm/ Sodium (Chloride) 250 mls @ 250 mls/hr IVPB Q12H [facility] PRN Reason: Protocol Last Admin: 06/01/18 08:47 Dose: 250 mls/hr Insulin Human Lispro (Humalog) 0 units SC ACHS [facility] PRN Reason: Protocol Last Admin: 06/01/18 12:44 Dose: 1 u Levothyroxine Sodium (Synthroid) 175 mcg PO DAILY@0630 [facility] Last Admin: 06/01/18 06:28 Dose: 175 mcg Losartan Potassium (Cozaar) 25 mg PO DAILY [facility] Last Admin: 06/01/18 08:42 Dose: 25 mg Ondansetron HCl (Zofran Inj) 4 mg IVP Q6 PRN PRN Reason: Nausea/Vomiting Pantoprazole Sodium (Protonix Ec Tab) 40 mg PO DAILY [facility] Last Admin: 06/01/18 08:43 Dose: 40 mg Saccharomyces Boulardii (Florastor) 250 mg PO BID [facility] Last Admin: 06/01/18 08:43 Dose: 250 mg Fluticasone/Salmeterol (Advair Diskus 250/50) 1 puff IH Q12 [facility] Last Admin: 06/01/18 08:41 Dose: 1 puff Silver Sulfadiazine (Silvadene 1% 20 Gm) 0 ea TOP DAILY [facility] Last Admin: 06/01/18 08:44 Dose: 1 u - Labs Labs: 05/30/18 06:00 05/29/18 16:13 PT 13.4 Seconds (9.8-13.1) H 05/29/18 16:13 INR 1.2 (0.9-1.2) 05/29/18 16:13 APTT 33.8 Seconds (25.6-37.1) 05/29/18 16:13 - Additional Findings Additional findings: Physical exam: Constitutional- cooperative, awake, alert Head- NC, large ecchymosis noted but healing well. PERRL Eye- PERRL, EOMI ENT- normal exam, MMM. Neck- normal inspection, supple, no JVD Respiratory- CTAB, no wheezes rales rhonchi Cardiovascular- RRR, +S1, +S2 no MRG GI/Abdominal- + Still with warmth and erythema around surgical site, however looks improved since admission. Small superficial abscess noted. normal bowel sounds, soft, no mass, no hsm. Ostomy having good drainage Skin- warm, dry Extremities Exam- normal capillary refill, normal inspection Neurological Exam- alert, awake, oriented Psych- normal mood, normal affect Assessment and Plan - Assessment and Plan (Free Text) Plan: 87 y/o female with multiple chronic conditions as noted below who was admitted here to the hospital in 02/2018 for GIB. She had had a perforation of her colon as a complication of colonoscopy, and required surgery. Now she is s/p colostomy. She was here again in 03/2018 for abdominal abscess for which she required a drainage catheter to be placed by IR. She was noted by her home visit physician to have redness/warmth on abdominal wall, and was sent here with concern for cellulitis. No f/c/n/v/d. Abd wall cellulitis continue abx, await surgery and ID recommendations - Continue Vanco 1 g q12h IV as per ID -Surgical consult Dr. Montaño, patient's surgeon- patient receiving I&D today -ID consult Dr. Garcia- recommends continuing IV Vancomycin at present. -diabetic diet, patient ileus resolved. DM2 -Accucheck and SSI -DM diet from AM CHF stable HTN stable, cont home medications Afib stable, cont home medications; no anticoag Hypothyroid stable, cont synthroid Asthma stable, PRN duonebs DVT PPx -- SCDs Disp: Possible discharge tomorrow, will f/u with surgery and ID
[2018-06-02] MEDS: Levothyroxine 175 MCG TAB PO SCH (06:54)
[2018-06-02 06:55] LABS: HEMOGLOBIN 11.2 g/dL (12.0-16.0); MEAN CELL VOLUME 98.5 fl (81.0-99.0); MEAN CORPUSCULAR HEMOGLOBIN 33.4 pg (27.0-31.0); MEAN CORPUSCULAR HGB CONC 33.9 g/dL (33.0-37.0); RBC 3.34 Mil/uL (3.80-5.20); RED CELL DISTRIBUTION WIDTH 18.2 % (11.5-14.5)
[2018-06-02] MEDS: Insulin Lispro (humaLOG) 100 Units/ml Inj SC SCH ×2 (07:13→13:10)
[2018-06-02 07:19] LABS: BLOOD UREA NITROGEN 6 mg/dl (7-17); CALCIUM 8.6 mg/dL (8.4-10.2); GFR AFRICAN-AMERICAN > 60; GFR NON-AFRICAN AMERICAN > 60
[2018-06-02] MEDS: Albuterol-Ipratrop 3 mg / 0.5 (3 ml) UD INH SCH ×3 (07:21→15:35)
--- NOTE | 2018-06-02 07:56 | CP.PCM.PN ---
Subjective - Date & Time of Evaluation Date of Evaluation: 06/02/18 Time of Evaluation: 07:53 - Subjective Subjective: General surgery progress note for Dr. Lee Donahue, PGY-2 Pt S & E at bedside 0725 Pt reports insomnia due to trying to sleep on her colostomy bag- which was hurting her to lay on. Denies abdominal pain, N & V, F & C, CP, SOB. Tolerating diet. Objective - Vital Signs/Intake and Output Vital Signs (last 24 hours): Temp Pulse Resp BP Pulse Ox 98.4 F 73 19 148/74 98 06/02/18 00:00 06/02/18 00:00 06/02/18 00:00 06/02/18 00:00 06/02/18 00:00 - Medications Medications: Current Medications Acetaminophen (Tylenol 325mg Tab) 650 mg PO Q6 PRN PRN Reason: Pain, Mild (1-3) Last Admin: 06/01/18 01:03 Dose: 650 mg Acetaminophen (Tylenol 325mg Tab) 650 mg PO Q6 PRN PRN Reason: Fever >100.4 F Albuterol/Ipratropium (Duoneb 3 Mg/0.5 Mg (3 Ml) Ud) 3 ml INH RQID [facility] Last Admin: 06/02/18 07:21 Dose: 3 ml Atorvastatin Calcium (Lipitor) 40 mg PO QPM [facility] Last Admin: 06/01/18 21:11 Dose: 40 mg Diltiazem HCl (Cardizem) 30 mg PO QID [facility] Last Admin: 06/01/18 21:11 Dose: 30 mg Vancomycin HCl 1 gm/ Sodium (Chloride) 250 mls @ 250 mls/hr IVPB Q12H JOSE A PRN Reason: Protocol Last Admin: 06/01/18 21:12 Dose: 250 mls/hr Insulin Human Lispro (Humalog) 0 units SC ACHS JOSE A PRN Reason: Protocol Last Admin: 06/01/18 22:00 Dose: Not Given Levothyroxine Sodium (Synthroid) 175 mcg PO DAILY@0630 [facility] Last Admin: 06/02/18 06:54 Dose: 175 mcg Losartan Potassium (Cozaar) 25 mg PO DAILY [facility] Last Admin: 06/01/18 08:42 Dose: 25 mg Ondansetron HCl (Zofran Inj) 4 mg IVP Q6 PRN PRN Reason: Nausea/Vomiting Pantoprazole Sodium (Protonix Ec Tab) 40 mg PO DAILY [facility] Last Admin: 06/01/18 08:43 Dose: 40 mg Saccharomyces Boulardii (Florastor) 250 mg PO BID [facility] Last Admin: 06/01/18 17:12 Dose: 250 mg Fluticasone/Salmeterol (Advair Diskus 250/50) 1 puff IH Q12 JOSE A Last Admin: 06/01/18 21:11 Dose: 1 puff Silver Sulfadiazine (Silvadene 1% 20 Gm) 0 ea TOP DAILY JOSE A Last Admin: 06/01/18 08:44 Dose: 1 u - Labs Labs: 06/02/18 06:05 06/02/18 06:05 PT 13.4 Seconds (9.8-13.1) H 05/29/18 16:13 INR 1.2 (0.9-1.2) 05/29/18 16:13 APTT 33.8 Seconds (25.6-37.1) 05/29/18 16:13 - Constitutional Appears: Non-toxic, No Acute Distress - Head Exam Head Exam: absent: ATRAUMATIC, NORMAL INSPECTION, NORMOCEPHALIC Additional comments: Right eye with ecchymoses, slight swelling- improving - Eye Exam Eye Exam: EOMI, Normal appearance - ENT Exam ENT Exam: Mucous Membranes Moist, Normal Exam - Neck Exam Neck Exam: Full ROM, Normal Inspection - Respiratory Exam Respiratory Exam: NORMAL BREATHING PATTERN - Cardiovascular Exam Cardiovascular Exam: REGULAR RHYTHM, +S1, +S2 - GI/Abdominal Exam GI & Abdominal Exam: Soft. absent: Distended (obese), Firm, Guarding, Rigid, Tenderness Additional comments: midline Monitor in place with scant purulent drainage to dressing Ostomy in place- scant light brown stool in bag Mid abdominal midline incision with mild surrounding erythema, no purulent drainage upon I &D, no purulent drainage now Packing removed, no bleeding Erythema of mid abdomen improving - Extremities Exam Extremities Exam: Normal Inspection - Neurological Exam Neurological Exam: Alert, Awake, CN II-XII Intact, Oriented x3 - Psychiatric Exam Psychiatric exam: Normal Affect, Normal Mood - Skin Skin Exam: Dry, Intact, Normal Color, Warm Additional comments: see abdominal exam for skin findings Assessment and Plan - Assessment and Plan (Free Text) Assessment: 87F w/PSH sig for Exploratory laparotomy w/extensive adhensiolysis, LAR, Bebo's complicated by rectal stump leak w/abscess developement s/p IR drainage of abscess (03/27), subsequent abdominal wall abscess s/p I & D w/ Monitor placement (04/27) admitted for evaluation of abdominal wall skin findings of erythema- improved Plan: Wound care dressing changes daily per nursing Does not need packing to blister- no purulent drainage ostomy care as per nursing PT/OT Ambulate with assistance OOBTC No surgical intervention at this time Further mgmt as per primary team Will EMMA attending Rowan, PGY-2
[2018-06-02 09:08] VITALS: RESP 20
[2018-06-02] MEDS: Saccharomyces Boulardi 250 mg Cap PO SCH (09:08)
[2018-06-02] MEDS: Fluticasone-Salmeterol 250-50mcg Diskus IH SCH (09:08)
[2018-06-02] MEDS: Pantoprazole 40 mg EC Tab PO SCH (09:11)
[2018-06-02] MEDS: Silver Sulfadiazine 1% Cream (20 gm) TOP SCH (09:13)
--- NOTE | 2018-06-02 12:23 | PN ---
DATE: 06/02/2018 SUBJECTIVE: Katie Cook is seen on Friday in the presence of the son. The abdominal wound is stable. The [place] in all portion is draining minimally fluid. There is a small collection in the upper portion of the wound that is readily palpable and this will be lanced and packed. The ostomy itself has little bit of irritation around it and instructions were given to minimize this. In general, she is doing very well. The CAT scan did not show drainable collection in the pelvis and is relatively stable. Peter Montaño MD
[2018-06-02 16:17] VITALS: BP 149/76; PULSE 83; TEMP 98.4; O2SAT 96
--- NOTE | 2018-06-02 17:35 | CP.PCM.DIS ---
Provider - Provider Date of Admission: 05/30/18 16:07 Attending physician: Omar Neves MD Consults: Dr. Montaño- surgery Dr. Garcia- ID Time Spent in preparation of Discharge (in minutes): 20 Hospital Course - Lab Results Lab Results: Micro Results 05/29/18 09:45 Blood-Venous Blood Culture - Preliminary NO GROWTH AFTER 3 DAYS 05/29/18 10:00 Blood-Venous Blood Culture - Preliminary NO GROWTH AFTER 3 DAYS 06/01/18 13:00 Abdomen Gram Stain - Final 06/01/18 13:00 Abdomen Wound Culture - Preliminary NO GROWTH AFTER 24 HOURS Most Recent Lab Values WBC 10.0 K/uL (4.8-10.8) 06/02/18 06:05 RBC 3.34 Mil/uL (3.80-5.20) L 06/02/18 06:05 Hgb 11.2 g/dL (12.0-16.0) L 06/02/18 06:05 Hct 32.9 % (34.0-47.0) L 06/02/18 06:05 MCV 98.5 fl (81.0-99.0) 06/02/18 06:05 MCH 33.4 pg (27.0-31.0) H 06/02/18 06:05 MCHC 33.9 g/dL (33.0-37.0) 06/02/18 06:05 RDW 18.2 % (11.5-14.5) H 06/02/18 06:05 Plt Count 270 K/uL (130-400) 06/02/18 06:05 MPV 8.2 fl (7.2-11.7) 05/29/18 16:13 Neut % (Auto) 52.7 % (50.0-75.0) 05/29/18 16:13 Lymph % (Auto) 33.9 % (20.0-40.0) 05/29/18 16:13 [place] % (Auto) 6.7 % (0.0-10.0) 05/29/18 16:13 Eos % (Auto) 5.4 % (0.0-4.0) H 05/29/18 16:13 Baso % (Auto) 1.3 % (0.0-2.0) 05/29/18 16:13 Neut # (Auto) 4.0 K/uL (1.8-7.0) 05/29/18 16:13 Lymph # (Auto) 2.6 K/uL (1.0-4.3) 05/29/18 16:13 [place] # (Auto) 0.5 K/uL (0.0-0.8) 05/29/18 16:13 Eos # (Auto) 0.4 K/uL (0.0-0.7) 05/29/18 16:13 Baso # (Auto) 0.1 K/uL (0.0-0.2) 05/29/18 16:13 PT 13.4 Seconds (9.8-13.1) H 05/29/18 16:13 INR 1.2 (0.9-1.2) 05/29/18 16:13 APTT 33.8 Seconds (25.6-37.1) 05/29/18 16:13 Sodium 137 mmol/l (132-148) 06/02/18 06:05 Potassium 3.9 MMOL/L (3.6-5.0) 06/02/18 06:05 Chloride 105 mmol/L (98-107) 06/02/18 06:05 Carbon Dioxide 21 mmol/L (22-30) L 06/02/18 06:05 Anion Gap 15 (10-20) 06/02/18 06:05 BUN 6 mg/dl (7-17) L 06/02/18 06:05 Creatinine 0.4 mg/dl (0.7-1.2) L 06/02/18 06:05 Est GFR ( Amer) > 60 06/02/18 06:05 Est GFR (Non-Af Amer) > 60 06/02/18 06:05 POC Glucose (mg/dL) 187 mg/dL (65-110) H 06/02/18 11:31 Random Glucose 121 mg/dL (65-105) H 06/02/18 06:05 Calcium 8.6 mg/dL (8.4-10.2) 06/02/18 06:05 Total Bilirubin 0.4 mg/dl (0.2-1.3) 05/29/18 16:13 AST 40 U/L (14-36) H D 05/29/18 16:13 ALT 32 U/L (9-52) 05/29/18 16:13 Alkaline Phosphatase 140 U/L (38-126) H D 05/29/18 16:13 Total Protein 6.8 G/DL (6.3-8.2) 05/29/18 16:13 Albumin 3.2 g/dL (3.5-5.0) L 05/29/18 16:13 Globulin 3.6 gm/dL (2.2-3.9) 05/29/18 16:13 Albumin/Globulin Ratio 0.9 (1.0-2.1) L 05/29/18 16:13 Influenza Typ A,B (EIA) Negative for flu a/b (NEGATIVE) 06/01/18 20:38 - Hospital Course Hospital Course: 87 y/o female with multiple chronic conditions as noted below who was admitted here to the hospital in 02/2018 for GIB. She had had a perforation of her colon as a complication of colonoscopy, and required surgery. Now she is s/p colostomy. She was here again in 03/2018 for abdominal abscess for which she required a drainage catheter to be placed by IR. She was noted by her home visit physician to have redness/warmth on abdominal wall, and was sent here with concern for cellulitis. During her course of stay, she was seen by Dr. Montaño for surgery and the patient had I&D of a small superficial abscess. The cellulitis improved during her stay. Dr. Garcia of ID also evaluated the patient and she was initially on Vancomycin, however as per him may go on Ciprofloxacin as blood cultures have been negative. Abd wall cellulitis, s/p I&D 06/01 - Patient's cellulitis improved - As per ID, can be on Ciprofloxacin 500 mg po BID, will continue for 1 week and patient should f/u with primary care physician - To be followed up with wound care physician Dr. Almaraz daily, her number is . Attempts were made to contact her before discharge but I was unable to reach her. - Surgical consult with Dr. Montaño -ID consult Dr. Garcia- recommends continuing IV Vancomycin at present. - patient ileus resolved. DM2 -Accucheck and SSI -DM diet from AM CHF stable HTN stable, cont home medications Afib stable, cont home medications; no anticoag Hypothyroid stable, cont synthroid Asthma stable, PRN duonebs DVT PPx -- SCDs Discharge Exam - Head Exam Head Exam: absent: ATRAUMATIC, NORMAL INSPECTION, NORMOCEPHALIC - Additional Findings Additional findings: Physical exam: Constitutional- cooperative, awake, alert Head- NC, large ecchymosis noted but healing well. PERRL Eye- PERRL, EOMI ENT- normal exam, MMM. Neck- normal inspection, supple, no JVD Respiratory- CTAB, no wheezes rales rhonchi Cardiovascular- RRR, +S1, +S2 no MRG GI/Abdominal- Much lessened erythema around ostomy site today. Ostomy working well. Wound c/d/i. normal bowel sounds, soft, no mass, no hsm. Ostomy having good drainage Skin- warm, dry Extremities Exam- normal capillary refill, normal inspection Neurological Exam- alert, awake, oriented Psych- normal mood, normal affect Discharge Plan - Discharge Medications Prescriptions: Ciprofloxacin [Cipro] 500 mg PO Q12 #14 tab - Follow Up Plan Condition: STABLE Disposition: HOME/ ROUTINE Instructions: How to Care for Your Ostomy, Adult, Cellulitis (Skin Infection), Adult (DC), Colostomy Care, Cellulitis (DC), Cellulitis (GEN) Additional Instructions: [facility] up with primary [facility] 1 week[phone] Daily wound changes Referrals: Ricardo Garcia MD [Staff Provider] - Peter Montaño MD [Staff Provider] -
--- NOTE | 2018-06-03 16:32 | PQF ---
PROVIDER RESPONSE TEXT: Condition occurred in the post op period , cause clinically unable to determine REVIEWER QUERY TEXT: Postoperative Relationship Clarification Abdomen wall cellulitis is the documented condition in the Medical Record. Please clarify. -- Condition is a complication of surgery -- Condition occurred in the post operative period, cause documented (please specify cause) -- Condition occurred in the post operative period, cause clinically unable to be determined -- Condition is incidental to surgery -- Other, please specify Documentation indicators that raised basis for question: abdomen wall cellulitis Query created by: Erin Berrios on 06/03/2018 7:55 AM Electronically signed by: Ami Hammonds MD 06/03/2018 4:29 PM
== END 2018-06-02 17:00 | disposition home or self-care (01) | DRG 580 ==
LOC: H.ER 14:43 → H.ERHOLD 21:10 → H.MEDSURG1 05-30 00:02 → OBSVTOIN 05-30 16:07
PROVIDERS: ADMIT Internal Medicine; ATTEND Internal Medicine
PROC: 0W9F0ZZ Drainage of Abdominal Wall, Open Approach (ICD-10-PCS; principal; 2018-06-01)
DX: L02.211 Cutaneous abscess of abdominal wall (principal); K56.7 Ileus, unspecified; Z93.3 Colostomy status; I25.10 Atherosclerotic heart disease of native coronary artery without angina pectoris; J44.9 Chronic obstructive pulmonary disease, unspecified; E11.9 Type 2 diabetes mellitus without complications; F32.9 Major depressive disorder, single episode, unspecified; E78.00 Pure hypercholesterolemia, unspecified; I11.0 Hypertensive heart disease with heart failure; E03.9 Hypothyroidism, unspecified; Z87.891 Personal history of nicotine dependence; I48.2 Chronic atrial fibrillation; G47.33 Obstructive sleep apnea (adult) (pediatric); I50.9 Heart failure, unspecified; K57.30 Diverticulosis of large intestine without perforation or abscess without bleeding; M17.0 Bilateral primary osteoarthritis of knee